=== PATIENT | male | born 1935 | race Caucasian/White ===

== ENCOUNTER 2020-04-29 09:31 | Outpatient (CLI) | payer MEDICARE, SELFPAY ==
--- NOTE | ~2020-04-29 | MR_ITS ---
EXAMINATION: MR cervical spine wo con DATE: 04/29/2020 10:46 INDICATION: Bilateral hand tremors. TECHNIQUE: Magnetic resonance imaging (MRI) of the cervical spine was performed without intravenous c ontrast. Sequences included sagittal T2-weighted FSE, sagittal T2-weighted FS FSE, sagittal T1-weight ed FSE, axial MERGE, and axial T2-weighted FSE. COMPARISON: Cervical spine MRI 05/26/2019 FINDINGS: There is 2 mm retrolisthesis of C7 on T1. There are changes of anterior fusion procedure fr om C4 to C7 with healed interbody bone graft. Vertebral body heights are normal. Intervertebral disc heights are normal in cervical spine. The spinal cord signal intensity is normal. The following disc levels are specifically discussed: C2-C3: There is a left central protrusion. There is no uncovertebral joint osteoarthritis. There is s evere right and mild left facet joint osteoarthritis. There is mild right neural foraminal stenosis. There is mild central canal stenosis. C3-C4: The disc is bulging. There is mild bilateral uncovertebral joint osteoarthritis. There is mode rate right and severe left facet joint osteoarthritis. There is mild right and moderate left neural f oraminal stenosis. There is mild central canal stenosis with ventral indentation of the spinal cord. C4-C5: There is mild left uncovertebral joint hypertrophy. There is mild left facet joint hypertrophy . There is mild left neural foraminal stenosis. There is mild central canal stenosis. C5-C6: There is mild bilateral uncovertebral joint hypertrophy. There is no facet joint osteoarthriti s. There is mild bilateral neural foraminal stenosis. There is mild central canal stenosis. C6-C7: There is moderate bilateral uncovertebral joint hypertrophy. There is no facet joint osteoarth ritis. There is mild bilateral neural foraminal stenosis. There is mild central canal stenosis. C7-T1: The disc does not extend beyond the endplate margin. There is no uncovertebral joint osteoarth ritis. There is severe bilateral facet joint osteoarthritis. There is moderate bilateral neural jayne inal stenosis. There is no central canal stenosis. IMPRESSION: 1. Moderate cervical spondylosis, stable from 05/26/2019. 2. Anterior fusion from C4 to C7. Reviewed, dictated and finalized at location A.
== END 2020-04-29 09:32 | disposition home or self-care (01) ==
PROVIDERS: PCP Internal Medicine; Visit Provider Psychiatry & Neurology Neurology
DX: R25.1 Tremor, unspecified (principal); M47.892 Other spondylosis, cervical region; Z98.1 Arthrodesis status
CPT/HCPCS: 72141

== ENCOUNTER 2020-05-03 13:16 | Outpatient (CLI) | payer MEDICARE, SELFPAY ==
--- NOTE | 2020-05-03 15:00 | NEURO_ITS ---
Patient Number: [id number] Impression: # Complains of generalized weakness of long duration. 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 # Severe neurogenic changes noted in muscles. # Clinical correlation recommended Nerve Conduction Studies Anti Sensory Summary Table Stim Site NR Peak (ms) P-T Amp (?V) Site1 Site2 Delta-P (ms) Dist (cm) Rajan (m/s) Left Median Anti Sensory (2-3nd Digit) Wrist 7.3 5.0 Wrist 2-3nd Digit 7.3 14.0 19 Wrist 7.1 10.6 Wrist 2-3nd Digit 7.3 14.0 19 Right Median Anti Sensory (2-3nd Digit) Wrist 8.0 11.3 Wrist 2-3nd Digit 8.0 14.0 18 Wrist 8.0 18.4 Wrist 2-3nd Digit 8.0 14.0 18 Left Radial Anti Sensory (Base 1st Digit) Wrist 2.6 20.0 Wrist Base 1st Digit 2.6 0.0 Right Radial Anti Sensory (Base 1st Digit) Wrist 3.7 14.8 Wrist Base 1st Digit 3.7 0.0 Left Sup Fibular Anti Sensory (Ant Lat Mall) NO RESPONSE 14 cm NR 14 cm Ant Lat Mall 16.0 Right Sup Fibular Anti Sensory (Ant Lat Mall) NO RESPONSE 14 cm NR 14 cm Ant Lat Mall 16.0 Left Sural Anti Sensory (Lat Mall) NO RESPONSE Calf NR Calf Lat Mall 16.0 Right Sural Anti Sensory (Lat Mall) NO RESPONSE Calf NR Calf Lat Mall 16.0 Left Ulnar Anti Sensory (5th Digit) Wrist 8.1 5.2 Wrist 5th Digit 8.1 14.0 17 Right Ulnar Anti Sensory (5th Digit) Wrist 6.8 4.7 Wrist 5th Digit 6.8 14.0 21 Motor Summary Table Stim Site NR Onset (ms) O-P Amp (mV) Site1 Site2 Delta-0 (ms) Dist (cm) Rajan (m/s) Left Median Motor (Abd Poll Brev) Wrist 10.8 0.8 Elbow Wrist 13.8 32.0 23 Elbow 24.6 0.8 Right Median Motor (Abd Poll Brev) Wrist 10.5 1.1 Elbow Wrist 13.1 29.0 22 Elbow 23.6 1.5 Left Peroneal Motor (Vastus Med) NO RESPONSE Ankle NR Popit NR Right Peroneal Motor (Vastus Med) NO RESPONSE Ankle NR Popit NR Left Tibial Motor (Abd Rivero Brev) NO RESPONSE Ankle NR Knee NR Right Tibial Motor (Abd Rivero Brev) NO RESPONSE Ankle NR Knee NR Left Ulnar Motor (Abd Dig Minimi) Wrist 6.2 1.1 A Elbow Wrist 14.7 32.0 22 A Elbow 20.9 2.0 Right Ulnar Motor (Abd Dig Minimi) Wrist 5.8 0.1 A Elbow Wrist 16.8 31.0 18 A Elbow 22.6 2.3 F Wave Studies NR F-Lat (ms) L-R F-Lat (ms) Left Median (Mrkrs) (Abd Poll Brev) 34.91 0.12 Right Median (Mrkrs) (Abd Poll Brev) 35.03 0.12 Left Peroneal (Mrkrs) (EDB) NO RESPONSE NR Right Peroneal (Mrkrs) (EDB) NO RESPONSE NR Left Tibial (Mrkrs) (Abd Hallucis) NO RESPONSE NR Right Tibial (Mrkrs) (Abd Hallucis) NO RESPONSE NR Left Ulnar (Mrkrs) (Abd Dig Min) 31.70 0.18 Right Ulnar (Mrkrs) (Abd Dig Min) 31.52 0.18 EMG Side Muscle Nerve Root Ins Act Fibs Amp Dur Recrt Comment Right 1stDorInt Ulnar C8-T1 Nml Nml Decr >12ms Reduced Right Ext Indicis Radial (Post Int) C7-8 Nml Nml Decr >12ms Reduced Right Ext Digitorum Radial (Post Int) C7-8 Nml Nml Decr >12ms Reduced Right BrachioRad Radial C5-6 Nml Nml Decr >12ms Reduced Right PronatorTeres Median C6-7 Nml Nml Decr >12ms Reduced Right A
== END 2020-05-03 13:17 | disposition home or self-care (01) ==
LOC: ANHNEURO 13:21
PROVIDERS: PCP Internal Medicine; Visit Provider Psychiatry & Neurology Neurology
DX: G62.9 Polyneuropathy, unspecified (principal); R94.131 Abnormal electromyogram [EMG]
CPT/HCPCS: 95886; 95913

== ENCOUNTER 2020-05-07 16:45 | Outpatient (CLI) | payer MEDICARE, SELFPAY ==
--- NOTE | ~2020-05-07 | CT_ITS ---
EXAMINATION: CT brain wo con INDICATION: Headache COMPARISON: None TECHNIQUE: Standard unenhanced head CT. The dose-length product (DLP) was 605.33 mGy-cm. The mA was a djusted according to patient size. Iterative reconstruction technique was employed. FINDINGS: There is no acute intraparenchymal hemorrhage. No evidence of mass lesion. No evidence of a cute infarction. There is mild periventricular and subcortical hypodensity probably related to small vessel ischemic disease. There is mild prominence of the sulci and ventricles related to cerebral atr ophy. Intracranial calcified cerebral atherosclerosis is noted. There are no extra-axial collections. There is no mass effect or midline shift. The orbits and soft tissues are unremarkable. The visuali zed sinuses and mastoid air cells are well aerated. IMPRESSION: 1. No acute intracranial abnormality. 2. Age related findings. Reviewed, dictated and finalized at location A.
--- NOTE | ~2020-05-07 | XR_ITS ---
EXAMINATION:XR cervical spine min 6V DATE: 05/07/2020 17:29 INDICATION: Neck pain TECHNIQUE: AP, lateral, lateral swimmers, bilateral oblique, and odontoid views of the cervical spine are provided. COMPARISON: None FINDINGS: Alignment is normal. The odontoid is intact. No fracture is identified. The vertebral body heights are normal. There are changes of anterior fusion from C4 through C7. The intervertebral disc space height at the nonfused levels are normal. There is moderate to severe multilevel facet osteoart hritis. Prevertebral soft tissues are normal. IMPRESSION: 1. Moderate cervical spondylosis without acute findings or significant interval change. Reviewed, dictated and finalized at location A.
== END 2020-05-07 16:46 | disposition home or self-care (01) ==
LOC: ANHIMG 16:50
PROVIDERS: PCP Internal Medicine; Visit Provider Internal Medicine
DX: R51 Headache (principal); M47.892 Other spondylosis, cervical region
CPT/HCPCS: 70450; 72052

== ENCOUNTER 2020-05-08 20:12 | Inpatient (IN) | payer MEDICARE, SELFPAY ==
--- NOTE | ~2020-05-08 | MR_ITS ---
EXAMINATION: MR brain/brain stem w con DATE: 05/10/2020 13:17 INDICATION: Right-sided extra-axial intracranial mass. TECHNIQUE: Magnetic resonance imaging (MRI) of the brain and brainstem was performed with 18 mL Multi David intravenous contrast. Sequences included axial T1-weighted FSE and postcontrast axial, coronal, and sagittal T1-weighted FSE. COMPARISON: Brain MRI 05/10/2020 FINDINGS: There is a 19 x 6 mm enhancing extra-axial mass overlying right frontal lobe. There is diff use pachymeningeal thickening and enhancement, likely secondary to prior lumbar spine surgery. There is no intracranial hemorrhage. The ventricles are normal in size. IMPRESSION: 1. 19 x 6 mm enhancing extra-axial mass overlying right frontal lobe, consistent with a meningioma. Reviewed, dictated and finalized at location A. IMPRESSION: 1. 19 x 6 mm enhancing extra-axial mass overlying right frontal lobe, consisten t with a meningioma.
--- NOTE | ~2020-05-08 | MR_ITS ---
EXAMINATION: MR brain/brain stem wo con DATE: 05/10/2020 09:11 INDICATION: Headache. Trauma. TECHNIQUE: Magnetic resonance imaging (MRI) of the brain and brainstem was performed without intraven ous contrast. Sequences included sagittal and axial T1-weighted FSE, axial diffusion-weighted FS EPI, axial T2*-weighted GRE, axial T2-weighted FLAIR Propeller, and axial T2-weighted Propeller. Apparent diffusion coefficient (ADC) maps were created. COMPARISON: Head CT 05/09/2020 FINDINGS: There is a 19 x 6 mm extra-axial mass overlying right frontal lobe that is intermediate sig nal intensity on T1 and T2-weighted images and demonstrates decreased signal on T2*weighted images. T here is no acute ischemic infarct. The ventricles are normal in size. There is mild mucosal thickenin g in the ethmoid sinuses. There is a mucous retention cyst in right maxillary sinus. There are likely changes of ocular lens replacement surgeries. There is anteroposterior elongation of the ocular glob es. The mastoid air cells are normal. IMPRESSION: 1. Stable 19 x 6 mm extra-axial mass overlying right frontal lobe, which may be a meningioma or acute subdural hematoma. Brain MRI with intravenous contrast is recommended. Reviewed, dictated and finalized at location A. IMPRESSION: 1. Stable 19 x 6 mm extra-axial mass overlying right frontal lobe, which may be a meningioma or acute subdural hematoma. Brain MRI with intravenous contrast i s recommended.
--- NOTE | ~2020-05-08 | CT_ITS ---
EXAMINATION: CTA brain carotid EXAM DATE: 05/09/2020 16:41 INDICATION: Intractable headaches. TECHNIQUE: Noncontrast head CT. Spiral CTA of the carotid arteries was performed with intravenous i njection 100 cc of Omnipaque 350. Axial, coronal, sagittal reformatted images reviewed. Additional r eformatted images created on dedicated 3-D workstation. NASCET comparable standard used to assess th e degree of arterial stenosis. Spiral CT angiogram cerebral arteries performed with the same intrave nous injection of contrast. Source images of the brain CTA transferred to dedicated workstation for 3 -D rotational image creation. Coronal, sagittal maximum intensity pixel images also reviewed. The d ose-length product (DLP) for this examination was 1736.83 mGy-cm. The exposure was tailored accordi ng to patient size, and iterative reconstruction (ASIR) was used as additional dose reduction techniq ue. Comparison is made to prior examination from 05/07/2020. FINDINGS: There is no carotid bulb plaque or stenosis. The vertebral arteries are codominant. Mild bi lateral carotid siphon arterial sclerosis without stenosis. There is no carotid or vertebral basilar arterial dissection or fibromuscular dysplasia. There are no cerebral artery aneurysms. There is symm etric cerebral artery arborization. The sagittal, transverse and sigmoid sinuses enhance normally, no venous sinus thrombosis. Internal cerebral veins also enhance normally. There is small hyperdense extra-axial bilobulated region measuring 4 mm thickness by 1.5 cm diameter, overlying the right frontal lobe measuring 70-80 Hounsfield units precontrast, 107 Hounsfield units postcontrast. This is most likely a small meningioma given enhancement on this early arterial phase. This is unchanged compared to 05/07/2020. No evidence of intraparenchymal brain mass lesion. No evide nce of acute infarction. There is no mass effect or midline shift. There is no obstructive hydrocepha jamal suspected. There are no calvarial acute fractures. Bilateral cataract surgery. Osseous fusion of the C4-7 vertebral bodies. Lung apices unremarkable. IMPRESSION: 1. No cervical arterial dissection or cerebral artery aneurysm. No carotid stenosis. 2. Right frontal small bilobulated extra-axial region most likely meningioma given enhancement. Con jacquard loom fixer 3-six-month follow-up noncontrast head CT. Reviewed, dictated and finalized at location A. IMPRESSION: 1. No cervical arterial dissection or cerebral artery aneurysm. No carotid ryan nosis. 2. Right frontal small bilobulated extra-axial region most likely meningioma g iven enhancement. Consider 3-six-month follow-up noncontrast head CT.
--- NOTE | ~2020-05-08 | XR_ITS ---
EXAMINATION: XR chest 2V DATE: 05/08/2020 21:55 INDICATION: Weakness and dizziness TECHNIQUE: AP and lateral views of the chest are obtained. COMPARISON: 04/19/2017 FINDINGS: The lungs are free of acute opacities. There is no pleural effusion or pneumothorax. The ca rdiomediastinal silhouette is normal. There is mild thoracic spondylosis. IMPRESSION: 1. No acute cardiopulmonary abnormality. Reviewed, dictated and finalized at location A.
[2020-05-08 20:15] VITALS: BP 155/62; PULSE 58; RESP 16; TEMP 36.3; O2SAT 100
--- NOTE | 2020-05-08 20:18 | ECG_ITS ---
Measurements Intervals [place] Rate: 56 P: 8 PA: 180 QRS: 10 QRSD: 98 T: 116 QT: 409 QTc: 397 Interpretive Statements SINUS BRADYCARDIA LOW QRS VOLTAGE IN PRECORDIAL LEADS CANNOT RULE OUT SEPTAL INFARCT, AGE INDETERMINATE BORDERLINE ST-T WAVE ABNORMALITY- HIGH LATERAL LEADS BASELINE ARTIFACT- I, III, AVR, AVL ABNORMAL ECG Electronically Signed On 05-09-2020 7:35:21 CDT by Juancarlos Marx D.O.
[2020-05-08 20:29] LABS: Basophils Percent Auto 0.3 % (0.2-1.2); Eosinophils Absolute Auto 0.2 K/mm3 (0-0.3); Eosinophils Percent Auto 2.9 % (0-4.4); Hematocrit 37.1 % (42.0-52.0); Hemoglobin 13.5 g/dL (14.0-18.0); Immature Granulocyte Absolute 0.02 K/mm3 (0.00-0.031); Immature Granulocyte Percent A 0.3 % (0-0.5); Lymphocytes Absolute Auto 2.02 K/mm3 (0.9-3.2); Lymphocytes Percent Auto 34.8 % (18.3-44.2); Mean Corpuscular HGB Conc 36.4 g/dl (32-36); Mean Corpuscular Hemoglobin 34.2 pg (26-34); Mean Corpuscular Volume 93.9 fl (80-100); Mean Platelet Volume 8.7 fl (7.4-10.4); Monocytes Absolute Auto 0.7 K/mm3 (0.1-0.6); Monocytes Percent Auto 11.2 % (2.6-8.5); Neutrophils Absolute Auto 2.9 K/mm3 (1.3-6.7); Neutrophils Percent Auto 50.5 % (45.5-73.1); Platelet Count Result 209 k/mm3 (150-375); Red Blood Count 3.95 M/mm3 (4.6-6.20); Red Cell Distribution Width 13.2 % (11.5-14.5); White Blood Count 5.8 K/mm3 (4.5-10.0)
[2020-05-08 20:41] LABS: Prothrombin Time 30.7 Seconds (11.1-14.7)
[2020-05-08 20:42] LABS: Partial Thromboplastin Time 47.2 SECONDS (22.3-36.8)
[2020-05-08 20:45] LABS: Alanine Aminotransferase 39 U/L (4-50); Alkaline Phosphatase 72 U/L (38-126); Aspartate Amino Transferase 55 U/L (17-59); Bilirubin,Total 0.3 mg/dL (0.2-1.3); Blood Urea Nitrogen 15 mg/dL (9-20); Calcium 8.1 mg/dL (8.4-10.2); Carbon Dioxide 30 mmol/L (22-30); Chloride 81 mmol/L (98-107); Estimated Glomerular Filt Rate > 60; Glucose 93 mg/dL (75-110); Potassium 3.8 mmol/L (3.4-5.0); Sodium 120 mmol/L (137-145)
--- NOTE | 2020-05-08 22:08 | ED.GENADULT ---
HPI - General Adult General Chief complaint: Weakness Stated complaint: weakness Time Seen by Provider: 05/08/20 21:31 History of Present Illness HPI narrative: Patient is a 85 y/o male complaining of generalized headache starting 2-3 days ago. He feels like his headache is both pressure and aching and he rates it as 3/10. He took Tylenol which did not help. He also has chronic neck pain. He denies any fever, nausea,vomiting or focal weakness. He has some generalized weakness for several weeks. He had outpatient head CT yesterday for evaluation of his headache. He was told that CT was negative. Related Data Home Medications Medication Instructions Recorded Confirmed primidone 250 mg tablet 250 mg PO QID tablet 02/02/20 05/07/20 latanoprost 0.005 % eye drops 1 drop OPHTHALMIC (EYE) DAILY ml 03/28/20 05/07/20 Allergies Allergy/AdvReac Type Severity Reaction Status Date / Time naproxen Allergy Severe SWELLING/SO Verified 05/07/20 14:03 B Review of Systems Constitutional: Constitutional: Denies chills, Denies fever(s), Reports headache(s) and Reports weakness Eyes: Eyes: Denies blurry vision ENT: Denies headache(s) and Denies neck pain Cardiovascular: Cardiovascular: Denies chest pain and Denies dyspnea Respiratory: Respiratory: Denies cough and Denies dyspnea Gastrointestinal: Gastrointestinal: Denies abdominal pain, Denies diarrhea, Denies nausea and Denies vomiting Genitourinary: Genitourinary: Denies hematuria and Denies dysuria Musculoskeletal: Musculoskeletal: Denies back pain and Reports neck pain Neurologic: Reports headache(s), Reports weakness and Reports other [facility]tremor) [facility] Past Medical History Medical History Eye exam normal Neck pain, acute Parkinson's disease dementia Routine eye exam Unspecified fall, initial encounter Family History Family History Other Asthma Cerebrovascular accident Diabetes mellitus Family history of arthritis Hypertension Social History Social History Second hand tobacco smoke exposure: No Alcohol intake: never Gender identity (if verbalized by the patient): Male Exam Const: General: no acute distress and well developed Orientation/consciousness: oriented to person, oriented to place, oriented to time and patient oriented x3 HENMT: Head: normocephalic Ears: external ears normal General nose exam: Normal external nose present Eyes: General: appearance normal, both eyes and all related structures Conjunctivae: conjunctivae normal Neck: Neck: normal visual inspection and full ROM Chest: Chest palpation & inspection: normal inspection of the chest and no tenderness Resp: Effort & Inspection: normal respiratory effort Auscultation: clear to auscultation bilaterally Cardio: Rate: regular rate Rhythm: regular rhythm GI: GI Palp: No abdominal tenderness and Yes Soft to palpation Skin: General skin exam: normal color and turgor normal Neuro: General: oriented to person, oriented to place, oriented to time and patient oriented x3 Cranial nerves: Yes CN's II-XII intact bilaterally Cognition (Neuro): normal cognition Speech: normal speech Motor exam (neuro): 5/5 motor strength present throughout Sensory Exam: normal sensation Coordination: [id number] test normal and [id number] test normal Extrem: General: normal to inspection, full ROM and no pedal edema Psych: Appearance: grossly normal Mental Status: mental status grossly normal Affect: normal affect Course Consultations Consultation #1: Discussed with Dr. Corado, who agrees to admit. Date: 05/08/20 Time: 22:50 Consultation #2: Discussed with Dr. Patino, who agrees to consult. Date: 05/08/20 Time: 23:16 Vital Signs Vital signs: Vital Signs Temperature 36.3 C L 05/08/20 20:15 Pulse Rate 58 L 05/08/20 20:15 Res
[2020-05-08 22:15] VITALS: BP 142/65; PULSE 55; RESP 12; O2SAT 99
[2020-05-08 22:20] VITALS: PULSE 55
[2020-05-08] MEDS: SODIUM CHLORIDE 0.9% IV 1,000 ML 100 ML IV CONT (22:33)
[2020-05-08 22:57] LABS: Add Urine Microscopic? YES; Appearance Urine Clear (Clear); Bilirubin Urine Negative (Negative); Blood Urine 2+ (Negative); Color Urine Straw (Yellow); Glucose Urine UA Negative (Negative); Ketones Urine Negative (Negative); Leukocyte Esterase Ur Negative LEU/UL (Negative); Nitrate Urine Negative (Negative); Protein Urine Negative (Negative); Specific Grav Ur 1.012 (1.001-1.035); Urobilinogen Urine Negative mg/dL (<2.0); WBC Urine 0-3 /hpf
[2020-05-08 23:17] LABS: Sodium Urine Random 66 meq/L
[2020-05-09] VITALS (8 sets, daily range): BP systolic 123–154; BP diastolic 53–71; PULSE 57–72; RESP 13–18; TEMP 36.5–36.9; O2SAT 97–100; BMI 29.9
--- NOTE | 2020-05-09 00:41 | ADMGEN ---
This patient, Truong Higuera, was admitted to [facility] Surg Room 306-02. Patient/family oriented to hospital policies and general routines including ID bracelet, bed and alarms, visiting hours, pain management, procedures, bathroom and other care routines, personal items, smoking policy, room service/diet, and visiting hours. Valuables list has been completed. Information on how to activate the Rapid Response Team has been discussed. Patient/Family are encouraged to report perceived risks to care and to ask questions if they do not understand what they are told or what they should do.
[2020-05-09 06:29] LABS: Basophils Percent Auto 0.4 % (0.2-1.2); Eosinophils Absolute Auto 0.2 K/mm3 (0-0.3); Eosinophils Percent Auto 3.5 % (0-4.4); Hematocrit 41.6 % (42.0-52.0); Hemoglobin 14.9 g/dL (14.0-18.0); Immature Granulocyte Absolute 0.01 K/mm3 (0.00-0.031); Immature Granulocyte Percent A 0.2 % (0-0.5); Lymphocytes Absolute Auto 1.42 K/mm3 (0.9-3.2); Mean Corpuscular HGB Conc 35.8 g/dl (32-36); Mean Corpuscular Hemoglobin 33.6 pg (26-34); Mean Corpuscular Volume 93.7 fl (80-100); Mean Platelet Volume 8.5 fl (7.4-10.4); Monocytes Absolute Auto 0.4 K/mm3 (0.1-0.6); Monocytes Percent Auto 9.6 % (2.6-8.5); Neutrophils Absolute Auto 2.5 K/mm3 (1.3-6.7); Neutrophils Percent Auto 55.3 % (45.5-73.1); Platelet Count Result 215 k/mm3 (150-375); Red Blood Count 4.44 M/mm3 (4.6-6.20); Red Cell Distribution Width 13.2 % (11.5-14.5); White Blood Count 4.6 K/mm3 (4.5-10.0)
[2020-05-09 06:36] LABS: Blood Urea Nitrogen 11 mg/dL (9-20); Calcium 8.3 mg/dL (8.4-10.2); Carbon Dioxide 28 mmol/L (22-30); Chloride 85 mmol/L (98-107); Estimated CRCL calculation 63 ml/min; Estimated Glomerular Filt Rate > 60; Glucose 113 mg/dL (75-110); Potassium 3.6 mmol/L (3.4-5.0); Sodium 121 mmol/L (137-145)
[2020-05-09] MEDS: TELMISARTAN 40 MG TABLET PO (08:34)
[2020-05-09] MEDS: AMIODARONE HCL 200 MG TABLET PO (08:34)
[2020-05-09] MEDS: metFORMIN HCL 500 MG TABLET 1000 MG PO (08:34)
[2020-05-09] MEDS: polyethylene glycoL 3350 17 GM POWD.PACK PO (08:34)
[2020-05-09] MEDS: PRIMIDONE 250 MG TABLET PO ×3 (08:34→16:43)
[2020-05-09] MEDS: LORATADINE 10 MG TABLET PO (08:34)
[2020-05-09] MEDS: SODIUM CHLORIDE 0.9% IV 1,000 ML 125 ML IV CONT (08:38)
[2020-05-09 10:45] LABS: Sodium 121 mmol/L (137-145)
[2020-05-09 13:05] LABS: Creatinine Urine 29.2 mg/dL
--- NOTE | 2020-05-09 14:25 | PM.IMHP ---
H&P: HPI History of Present Illness Chief complaint: hyponatremia Narrative: Truong Higuera is a 85 year old male Who presented emergency room for a new 4/10 headache that started Thursday. Patient states that he has got normal headaches right his life but has noticed that he has had the same headache since Thursday. He rates this headache a 4/10 but went down to 1/10 with the Fioricet. He says it feels like a dull constant headache that is around his frontal head and the back of his head. He took Tylenol at home but it did not help. He cannot take ibuprofen because he is on warfarin. He said this is causing him not to sleep and actually woke him up out of a sleep because of the pain. He has no associated vision change, new tremor, numbness, tingling, slurred speech, neck pain, or problems swallowing. He has noticed in the last 5 days that he has been more off balance which is abnormal for him. He thought this was the medicine gabapentin that he started on recently but he quit taking this medication and his symptoms have not gotten better. He fell a few weeks ago but fell back on his butt and did not hit his head. the patient states that he recently started drinking more water because his daughter says he does not drink enough water. He now drinks up to 10 glasses of water a day and has been urinating a lot. He denies chest pain, fevers, chills, shortness of breath, rashes or sick contacts. He has an essential tremor that has not changed since he was 27. He has no history of dementia or Parkinson's. Review of Systems Review of Systems: All systems reviewed & are unremarkable except as noted in HPI and below [facility] Past Medical History Medical History (Updated 05/09/20 @ 15:17 by Carolyn Okeefe PA-C) Cataract Cervical vertebral fusion Chronic atrial fibrillation Chronic diastolic (congestive) heart failure Essential tremor Eye exam normal Glaucoma Hearing loss Mixed hyperlipidemia Neck pain, acute Routine eye exam Type 2 diabetes mellitus without complication, without long-term current use of insulin Unspecified fall, initial encounter Family History Family History Other Asthma Cerebrovascular accident Diabetes mellitus Family history of arthritis Hypertension Social History Social History (Updated 05/09/20 @ 15:18 by Carolyn Okeefe PA-C) Social History: patient is a nonsmoker and never has smoked. He does not use alcohol or drugs. 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 His power of agriculture consultant is Jia Leon, daughter. He would like to be a full code Smoking status: Current every day smoker Tobacco type: smokeless tobacco Smokeless tobacco user: chewing tobacco Alcohol intake: never Substance use: never Gender identity (if verbalized by the patient): Male Spiritual care concerns: Yes (jain) Meds Home Medications and Allergies Home Medications Medication Instructions Recorded Confirmed Type metformin 1,000 mg tablet 1,000 mg PO DAILY #90 tablet 12/13/19 05/09/20 Rx primidone 250 mg tablet 250 mg PO QID tablet 02/02/20 05/09/20 History telmisartan 40 mg tablet 40 mg PO DAILY #90 tablet 03/27/20 05/09/20 Rx latanoprost 0.005 % eye drops 1 drop OPHTHALMIC (EYE) HS 03/28/20 05/09/20 History hydrochlorothiazide 50 mg tablet 50 mg PO DAILY 30 Days #30 tablet 04/24/20 05/09/20 Rx B-complex with vitamin C 1 tablet PO HS 05/09/20 05/09/20 History amiodarone 200 mg PO DAILY 05/09/20 05/09/20 History ascorbic acid (vitamin C) 1 g PO HS 05/09/20 05/09/20 History atorvastatin 10 mg PO EVERY OTHER DAY 05/09/20 05/09/20 History cholecalciferol (vitamin D3) 25 mcg PO HS 05/09/20 05/09/20 History fexofenadine [Allergy Relief 180 mg PO DAILY 05/09/20 05/09/20 History (fexofenadine)] montelukast 10 mg PO HS 05/09/20 05/09/20 History polyethylene glycol 3350 [Miralax] 17 g PO EVERY OTHER DAY 05/09/20 05/09/20 History warfarin See Rx Instruc
[2020-05-09 16:12] LABS: Urea Random Urine 256 MG/DL
[2020-05-09 17:50] LABS: Glucose Point of Care 117 (65-105)
--- NOTE | 2020-05-09 20:40 | CONS_ITS ---
DATE OF CONSULTATION: 05/09/2020 Patient of Carolyn Okeefe. HISTORY OF PRESENT ILLNESS: This 85 years old right-handed male has been admitted to [facility] through the emergency room for the complaint of change in the mental status with the initial evaluation revealing the patient was hyponatremic when he was investigated in the emergency room. As per the information available, the patient had been experiencing severe headaches since Thursday, 01/26, but went down to 10/28 with the pain medication. The headache was described as constant, located in frontal and occipital area with no relief from the Tylenol. He was unable to take ibuprofen because the patient has been on warfarin. He had no associated visual changes, weakness, numbness, or slurred speech, but he has been off the balance for 5 days. He attributed that symptom to the gabapentin and he quit taking that medication. He has fallen a few weeks ago, though he did not hit his head at that particular time. He was having difficulties drinking water, but recently he has been drinking 10 glasses of water a day and he has been urinating a lot. PAST MEDICAL HISTORY: The patient does have ongoing history of essential tremor. In the past, he had been documented to have cervical vertebral fusion, chronic atrial fibrillation, diastolic congestive heart failure, essential tremor, hearing loss, glaucoma, and type 2 diabetes mellitus. SOCIAL HISTORY: He is a current every day smoker, chews tobacco, never drinker. MEDICATIONS: Included metformin 1000 mg daily, primidone 250 mg q.i.d., amiodarone 200 mg daily, ascorbic acid 1 g at bedtime, atorvastatin 10 mg every other day, Coumadin accordingly. ALLERGIES: HE IS ALLERGIC TO ONLY NAPROXEN. PHYSICAL EXAMINATION: VITAL SIGNS: Initial evaluation revealed him to be afebrile with pulse of 58, respirations 16, blood pressure 155/62. GENERAL: Examination revealed him to be awake, alert, cooperative, in no obvious acute distress. HEENT: Head normocephalic with no cranial bruit. Ears, nose, throat examination normal. NECK: Supple with no cervical bruit. No thyromegaly. No lymphadenopathy. HEART: Regular. LUNGS: Clear. ABDOMEN: Soft. NEUROLOGIC: Motor examination revealed him to have decreased strength in upper and lower extremities with sluggish reflexes, downgoing plantar responses. LABORATORY DATA: Evaluation up until now documented him to have normal CBC with WBC 5.8, hemoglobin 13.5, platelet count 209. Basic metabolic panel with sodium only 120, potassium 3.8, chloride 81, CO2 of 30, BUN 15, creatinine 1, glucose 93, calcium 8.1. Total bilirubin 0.3, AST 55, ALT 39, alkaline phos 72, albumin 4. UA negative with specific gravity 1.012. IMAGING DATA: Evaluation up until now included the head and neck CTA, which is with no cervical arterial dissection or aneurysm, right frontal small bilobulated extra-axial region most likely meningioma given the enhancement for which a repeat CT scan recommended as a followup. Cervical spine x-rays are compatible with moderate cervical spondylosis. 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 IMPRESSION: 1. Hyponatremia. 2. Severe neuropathy. 3. Underlying basic weakness because of neuropathy exacerbated by the hyponatremia for which he is being treated accordingly. At present, he is receiving the IV fluids, all his other medications as such, will need slow hydration and correction of hyponatremia. As far as weakness is concerned, that has been documented secondary to severe neuropathy and things have been
[2020-05-09] MEDS: CHOLECALCIFEROL 1,000 UNIT TABLET 1000 UNITS PO (21:00)
[2020-05-09] MEDS: ATORVASTATIN 10 MG TABLET PO (21:05)
[2020-05-09] MEDS: ASCORBIC ACID 500 MG TABLET 1000 MG PO (21:05)
[2020-05-09] MEDS: VITAMIN B COMPLEX/VIT C CAPSULE 1 EACH PO (21:06)
[2020-05-09] MEDS: LATANOPROST 0.005% OP SOLN 2.5 ML BTL 1 DROP EACH EYE (21:06)
[2020-05-09 21:16] LABS: Glucose Point of Care 125 (65-105)
[2020-05-09] MEDS: MONTELUKAST SODIUM 10 MG TABLET PO (22:28)
[2020-05-10 06:00] VITALS: BP 149/65; PULSE 66; RESP 16; TEMP 36.6; O2SAT 99
[2020-05-10 06:08] LABS: Hemoglobin 13.1 g/dL (14.0-18.0); Mean Corpuscular HGB Conc 35.4 g/dl (32-36); Mean Corpuscular Hemoglobin 33.7 pg (26-34); Mean Corpuscular Volume 95.1 fl (80-100); Mean Platelet Volume 8.7 fl (7.4-10.4); Platelet Count Result 209 k/mm3 (150-375); Red Blood Count 3.89 M/mm3 (4.6-6.20); Red Cell Distribution Width 13.4 % (11.5-14.5); White Blood Count 4.8 K/mm3 (4.5-10.0)
[2020-05-10 06:18] LABS: INR 2.4; Prothrombin Time 25.9 Seconds (11.1-14.7)
[2020-05-10 06:24] LABS: Anion Gap 9.7 mmol/L (7-16); Blood Urea Nitrogen 13 mg/dL (9-20); Carbon Dioxide 28 mmol/L (22-30); Chloride 92 mmol/L (98-107); Estimated CRCL calculation 63 ml/min; Estimated Glomerular Filt Rate > 60; Glucose 100 mg/dL (75-110); Magnesium 1.9 mg/dL (1.6-2.3); Phosphorus 2.6 mg/dL (2.5-4.5); Potassium 3.7 mmol/L (3.4-5.0); Sodium 126 mmol/L (137-145)
[2020-05-10 08:00] VITALS: PULSE 66; RESP 16; O2SAT 99
[2020-05-10] MEDS: metFORMIN HCL 500 MG TABLET 1000 MG PO (09:31)
[2020-05-10] MEDS: PRIMIDONE 250 MG TABLET PO ×2 (09:32→16:30)
[2020-05-10] MEDS: AMIODARONE HCL 200 MG TABLET PO (09:33)
[2020-05-10] MEDS: TELMISARTAN 40 MG TABLET PO (09:38)
[2020-05-10] MEDS: LORATADINE 10 MG TABLET PO (09:40)
--- NOTE | 2020-05-10 11:27 | WPDNEUROPN ---
Review of Systems Review of Systems: All systems reviewed & are unremarkable except as noted in HPI and below Exam Const: General: cooperative, comfortable, no acute distress, well developed, alert and awake Orientation/consciousness: oriented to person, oriented to place and oriented to time Limitations: no limitations HENMT: Head: normal to inspection Eyes: General: appearance normal, both eyes and all related structures Visual Collins: normal visual collins by confrontation Alignment and Position: alignment normal Periorbital: periorbital findings normal Eyelids: eyelids normal Conjunctivae: conjunctivae normal Sclera: sclerae normal Cornea: corneas normal Pupils: Equal, round and reactive pupils present and Pupils normal by confrontation EOM: EOMs intact bilaterally Direct Ophthalmoscopy: no photophobia Neck: Neck: normal visual inspection and full ROM Resp: Effort & Inspection: normal respiratory effort and able to speak in complete sentences Auscultation: clear to auscultation bilaterally Cardio: Rate: regular rate GI: Auscultation: normal bowel sounds Skin: General skin exam: no rashes or lesions noted Neuro: General: patient oriented x3 Cranial nerves: Yes CN's II-XII intact bilaterally Speech: normal speech Motor exam (neuro): Abnormal motor strength present Sensory Exam: Sensory deficit (Neuro) Deep tendon reflexes (DTR's): Right triceps reflex intensity grade: 1+, Left triceps reflex intensity grade: 1+, Rt Biceps (C5, C6): 1+, Left biceps reflex intensity grade: 1+, Right brachioradialis reflex intensity grade: 1+, Left brachioradialis reflex intensity grade: 1+, Right patellar reflex intensity grade: 0, Left patellar reflex intensity grade: 0, Right ankle reflex intensity grade: 0 and Left ankle reflex intensity grade: 0 Plantar Reflex Responses: downgoing: bilateral Coordination: [id number] test normal Extrem: General: normal to inspection Psych: Appearance: grossly normal Speech and movement: Normal speech and movement present Affect: normal affect Attitude: cooperative Thought process: Normal thought process present Insight: Good insight present (Psych) Judgement: Good judgement present (Psych) Objective Data Vital Signs Vital Signs: Vital Signs - 24 hr 05/09/20 14:00 05/09/20 20:00 05/09/20 21:51 Temperature 36.5 C 36.9 C Pulse Rate 67 67 60 Respiratory Rate 18 18 18 Blood Pressure 137/53 L 138/71 Pulse Oximetry 99 99 97 05/10/20 06:00 05/10/20 08:00 Temperature 36.6 C Pulse Rate 66 66 Respiratory Rate 16 16 Blood Pressure 149/65 H Pulse Oximetry 99 99 Intake/Output Intake/Output: Intake & Output 05/07/20 05/08/20 05/09/20 05/10/20 23:59 23:59 23:59 23:59 Intake Total 927 240 Output Total 2550 700 Balance -0643 460 Meds/Results Medications: Active Medications Generic Name Dose Route Start Last Admin Trade Name Freq PRN Reason Stop Dose Admin Acetaminophen 650 mg 05/09/20 13:35 Tylenol Tablet PO Q4H PRN Headache Amiodarone HCl 200 mg 05/09/20 08:00 05/10/20 09:33 Pacerone PO 200 mg DAILY@0800 VIVIANE Administration Ascorbic Acid 1,000 mg 05/09/20 21:00 05/09/20 21:05 Vitamin C PO 1,000 mg HS VIVIANE Administration Atorvastatin Calcium 10 mg 05/09/20 21:00 05/09/20 21:05 Lipitor PO 10 mg Q48H VIVIANE Administration Butalbital/Aspirin/Caffeine 1 cap 05/09/20 15:07 05/10/20 00:50 Fioricet Capsule PO 1 cap Q4H PRN Administration headache Dextrose 12.5 gm 05/09/20 15:29 Dextrose 50% Syringe IV PUSH PRN PRN Hypoglycemia Protocol Glucagon 1 mg 05/09/20 15:29 Glucagon For Inj IM PRN PRN Hypoglycemia Protocol Glucose 15 gm 05/09/20 15:29 Glutose 15 PO PRN PRN Hypoglycemia Protocol Dextrose 1,000 mls @ 100 mls/hr 05/09/20 15:29 Dextrose 5% 1,000 Ml IVPB PRN PRN Hypoglycemia Protocol Insulin Aspart 2 - 5 u
--- NOTE | 2020-05-10 13:31 | PM.IMPN ---
Progress Note: A&P Assessment and Plan (1) Headache: Qualifiers: Headache chronicity pattern: unspecified pattern Headache type: unspecified Intractability: not intractable Qualified Code(s): R51 - Headache Code(s): R51 - Headache Status: Acute Assessment and Plan: ----- Pt's HER is better with Fioricet. brain MRI with contrast shows meningioma but no bleed. I think this is an incidental finding. His headache is likely due to his hyponatremia and now he is not sleeping. It does get better with Fioricet and he does not have any neurological deficits at this time. CTA normal. Patient is on warfarin and INR is 2.4. Neurology has been consulted. (2) Hyponatremia: Code(s): E87.1 - Hypo-osmolality and hyponatremia Status: Acute Assessment and Plan: ----- on admission sodium was 120 and has improved to 126. the EMR shows his sodium at 133 September 2019. Unclear why he is hyponatremic at this time but could be due to him drinking a lot more water recently as his daughter has been encouraging him. diuretic held and will likely not be restarted. (3) Chronic atrial fibrillation: Code(s): I48.20 - Chronic atrial fibrillation, unspecified Status: Acute Assessment and Plan: ----- patient has chronic atrial fibrillation is on amiodarone and warfarin. INR 2.4. Will continue with this and monitor INRs daily (4) Essential tremor: Code(s): G25.0 - Essential tremor Status: Inactive Assessment and Plan: ----- chronic. Will continue primidone but a lower dose. Will ask neurology to review home dosing and appreciate their recommendations (5) Type 2 diabetes mellitus without complication, without long-term current use of insulin: Code(s): E11.9 - Type 2 diabetes mellitus without complications Status: Acute Assessment and Plan: ----- relatively well controlled. Will do sliding scale insulin and hold metformin. (6) Weakness: Code(s): R53.1 - Weakness Status: Acute Assessment and Plan: ----- Continue PT and OT. (7) Glaucoma: Code(s): H40.9 - Unspecified glaucoma Status: Acute Assessment and Plan: ----- no acute problems. Continue home eye drops. Time Spent With Patient Time with patient: 25 - 35 minutes Subjective Date/time seen: 05/10/20 13:31 Interval history: Pt is a 85-year-old male here for headache and hyponatremia. Patient was seen today and states he had a significant headache over night which woke him up. He took the Fioricet which improved his headache. he is doing better today and has no complaints. Daughter at bedside and I spoke with them about the plan in place. Pt denies CP, SOB, fevers, chills, nausea, vomiting, diarrhea, or constipation. of note, since this has started he has been getting confused on reality vs dreaming but has not been sleeping d/t pain. Review of Systems Review of Systems: All systems reviewed & are unremarkable except as noted in HPI and below Exam Narrative: Exam Narrative: General:Well developed well nourished patient HEENT: Normocephalic, atraumatic, PERRL, Sclerae anicteric, oral mucosa moist. Neck: Supple Resp: CTA Heart: RRR with no murmurs Abd: Soft, nontender. No pain to palpation. Positive bowel sounds Skin: Warm and dry Extremities: No swelling, erythema or pain to palpation Neuro: Alert and Oriented x4 . CN 2-12 intact. equal strength 5/5 upper and lower extremities. Able to do rapid alternating movements. Decreased accuracy to [id number] consistent with essential tremor Objective Data Vital Signs Vital Signs: Vital Signs - 24 hr 05/09/20 14:00 05/09/20 20:00 05/09/20 21:51 Temperature 97.7 F 98.4 F Pulse Rate 67 67 60 Respiratory Rate 18 18 18 Blood Pressure 137/53 L 138/71 Pulse Oximetry 99 99 97 05/10/20 06:00 05/10/20 08:00 Temperature 97.9 F Pulse Rate 66 66 Respi
[2020-05-10 14:00] VITALS: BP 134/58; PULSE 62; RESP 18; TEMP 36.7; O2SAT 100
[2020-05-10 18:06] LABS: Glucose Point of Care 116 (65-105)
[2020-05-10] MEDS: LATANOPROST 0.005% OP SOLN 2.5 ML BTL 1 DROP EACH EYE (20:41)
[2020-05-10] MEDS: MONTELUKAST SODIUM 10 MG TABLET PO (20:41)
[2020-05-10] MEDS: CHOLECALCIFEROL 1,000 UNIT TABLET 1000 UNITS PO (20:41)
[2020-05-10] MEDS: VITAMIN B COMPLEX/VIT C CAPSULE 1 EACH PO (20:41)
[2020-05-10] MEDS: ASCORBIC ACID 500 MG TABLET 1000 MG PO (20:41)
[2020-05-10 21:39] LABS: Glucose Point of Care 111 (65-105)
[2020-05-10 22:00] VITALS: BP 133/68; PULSE 58; RESP 18; TEMP 37.2; O2SAT 99
[2020-05-11 06:00] VITALS: BP 141/57; PULSE 53; RESP 18; TEMP 36.7; O2SAT 100
[2020-05-11 06:28] LABS: Hematocrit 36.7 % (42.0-52.0); Hemoglobin 12.8 g/dL (14.0-18.0); Mean Corpuscular HGB Conc 34.9 g/dl (32-36); Mean Corpuscular Volume 94.6 fl (80-100); Mean Platelet Volume 8.5 fl (7.4-10.4); Platelet Count Result 222 k/mm3 (150-375); Red Blood Count 3.88 M/mm3 (4.6-6.20); Red Cell Distribution Width 13.2 % (11.5-14.5); White Blood Count 5.2 K/mm3 (4.5-10.0)
[2020-05-11 06:32] LABS: INR 1.5
[2020-05-11 06:37] LABS: Anion Gap 9.7 mmol/L (7-16); Blood Urea Nitrogen 14 mg/dL (9-20); Calcium 8.1 mg/dL (8.4-10.2); Carbon Dioxide 28 mmol/L (22-30); Chloride 94 mmol/L (98-107); Estimated CRCL calculation 56 ml/min; Estimated Glomerular Filt Rate > 60; Glucose 104 mg/dL (75-110); Potassium 3.7 mmol/L (3.4-5.0); Sodium 128 mmol/L (137-145)
[2020-05-11 07:53] VITALS: PULSE 53; RESP 18; O2SAT 100
[2020-05-11] MEDS: PRIMIDONE 250 MG TABLET PO ×2 (08:11→13:39)
[2020-05-11] MEDS: metFORMIN HCL 500 MG TABLET 1000 MG PO (08:11)
[2020-05-11] MEDS: LORATADINE 10 MG TABLET PO (08:11)
[2020-05-11] MEDS: TELMISARTAN 40 MG TABLET PO (08:12)
[2020-05-11] MEDS: AMIODARONE HCL 200 MG TABLET PO (08:12)
[2020-05-11] MEDS: polyethylene glycoL 3350 17 GM POWD.PACK PO (08:13)
[2020-05-11 10:57] LABS: Glucose Point of Care 150 (65-105)
[2020-05-11] MEDS: ENOXAPARIN 100 MG/ML SYRINGE 95 MG SUB-Q (13:30)
[2020-05-11 14:00] VITALS: BP 127/46; PULSE 69; RESP 18; TEMP 36.9; O2SAT 100
--- NOTE | 2020-05-11 14:24 | PM.DS ---
DS: Admitting Diagnosis Admitting Diagnosis Admitting Diagnosis: Headache DS: Discharge Diagnosis Discharge Diagnosis (1) Headache: Qualifiers: Headache chronicity pattern: unspecified pattern Headache type: unspecified Intractability: not intractable Qualified Code(s): R51 - Headache Code(s): R51 - Headache Status: Acute Assessment and Plan: ----- Pt's HER is better with The improvement of his hyponatremia and p.r.n. Fioricet. brain MRI with contrast shows meningioma but no bleed. I think this is an incidental finding. His headache is likely due to his hyponatremia and lack of sleep. It does get better with Fioricet and he does not have any neurological deficits at this time. CTA normal. neurology consulted and agrees. The day of discharge his headache had resolved. He was given a few Fioricets but educated to use them very sparingly and that they do have aspirin in them. if he is using it more than once a week, he needs to follow-up with his primary care doctor/ or neurologist for additional recommendations on headache therapy (2) Hyponatremia: Code(s): E87.1 - Hypo-osmolality and hyponatremia Status: Acute Assessment and Plan: ----- on admission sodium was 120 and has improved to 128. the EMR shows his sodium at 133 September 2019. Unclear why he is hyponatremic at this time but could be due to him drinking a lot more water recently as his daughter has been encouraging him. diuretic stopped. He is to fluid restrict for a few days and get a redraw of his sodium in 1 week and follow-up with his primary care doctor (3) Chronic atrial fibrillation: Code(s): I48.20 - Chronic atrial fibrillation, unspecified Status: Acute Assessment and Plan: ----- patient has chronic atrial fibrillation is on amiodarone and warfarin. his warfarin was not restarted at discharge and his INR dropped to 1.5 the day of discharge. He was given 1 dose of Lovenox and warfarin was restarted. Continue amiodarone. Educated on stroke-like symptoms come back to emergency room for (4) Essential tremor: Code(s): G25.0 - Essential tremor Status: Inactive Assessment and Plan: ----- chronic. Will continue primidone but a lower dose. Will ask neurology to review home dosing and appreciate their recommendations (5) Type 2 diabetes mellitus without complication, without long-term current use of insulin: Code(s): E11.9 - Type 2 diabetes mellitus without complications Status: Acute Assessment and Plan: ----- relatively well controlled. Will do sliding scale insulin and hold metformin. (6) Weakness: Code(s): R53.1 - Weakness Status: Acute Assessment and Plan: ----- Continue PT and OT. (7) Glaucoma: Code(s): H40.9 - Unspecified glaucoma Status: Acute Assessment and Plan: ----- no acute problems. Continue home eye drops. DS: Summary Hospital Course Reason for hospitalization: headache, hyponatremia Hospital Course: patient is an 85-year-old male who presented emergency room for a significant headache that wakes him up from his sleep and is persisting for the last few days. He took Tylenol at home but it did not help. He had no neck stiffness, numbness, or tingling to any part of his body. He did feel a little more off balance and weaker than normal. He had an outpatient CT of his brain which was normal days prior to admission. Vitals in the ER were stable. White blood cell count normal. Sodium found to be 120. His last sodium which was September 2019 was at 133. patient mid for further workup and underwent a CTA and brain MRI. This showed a benign meningioma which was thought to be an incidental finding. Neurology was consulted and he was given some Fioricet which improved his headache significantly. As for sodium, he improved to 128 over his hospitalization with flui
--- NOTE | 2020-05-11 14:36 | WPDNEUROPN ---
Progress Note: A&P Assessment and Plan (1) Glaucoma: Code(s): H40.9 - Unspecified glaucoma Status: Acute (2) Type 2 diabetes mellitus without complication, without long-term current use of insulin: Code(s): E11.9 - Type 2 diabetes mellitus without complications Status: Acute (3) Chronic atrial fibrillation: Code(s): I48.20 - Chronic atrial fibrillation, unspecified Status: Acute (4) Weakness: Code(s): R53.1 - Weakness Status: Acute (5) Parkinson's disease dementia: Code(s): G20 - Parkinson's disease; F02.80 - Dementia in other diseases classified elsewhere without behavioral disturbance Status: Acute (6) Intention tremor: Code(s): G25.2 - Other specified forms of tremor Status: Acute (7) Arthritis of right shoulder region: Code(s): M19.011 - Primary osteoarthritis, right shoulder Status: Acute (8) Unspecified asthma, uncomplicated: Code(s): J45.909 - Unspecified asthma, uncomplicated Status: Acute (9) Cervical disc disease with myelopathy: Code(s): M50.00 - Cervical disc disorder with myelopathy, unspecified cervical region Status: Acute (10) Hypertensive heart disease with chronic diastolic congestive heart failure: Code(s): I11.0 - Hypertensive heart disease with heart failure; I50.32 - Chronic diastolic (congestive) heart failure Status: Acute (11) Vitamin D deficiency, unspecified: Code(s): E55.9 - Vitamin D deficiency, unspecified Status: Acute Additional Plan the patient is back to his baseline is going to be discharged and can have follow-up with Dr. Thomas in couple of months Review of Systems Review of Systems: All systems reviewed & are unremarkable except as noted in HPI and below Exam Const: General: comfortable and no acute distress HENMT: General nose exam: Normal nares present Mouth: Yes moist mucous membranes Eyes: General: appearance normal, both eyes and all related structures Neck: Neck: supple and no JVD Resp: Effort & Inspection: normal respiratory effort Auscultation: clear to auscultation bilaterally Cardio: Rate: regular rate Rhythm: regular rhythm GI: Auscultation: normal bowel sounds Skin: General skin exam: normal color and no rashes or lesions noted Neuro: Other: patient is awake alert well oriented his back to his baseline walking with a walker quite a bit his generalized weakness particularly the lower extremity has completely resolved as per patient and his daughter present at the time of the interview Extrem: General: normal to inspection Psych: Mental Status: mental status grossly normal Objective Data Vital Signs Vital Signs: Vital Signs - 24 hr 05/10/20 22:00 05/11/20 06:00 05/11/20 07:53 Temperature 37.2 C 36.7 C Pulse Rate 58 L 53 L 53 L Respiratory Rate 18 18 18 Blood Pressure 133/68 141/57 H Pulse Oximetry 99 100 100 05/11/20 14:00 Temperature 36.9 C Pulse Rate 69 Respiratory Rate 18 Blood Pressure 127/46 L Pulse Oximetry 100 Intake/Output Intake/Output: Intake & Output 05/08/20 05/09/20 05/10/20 05/11/20 23:59 23:59 23:59 23:59 Intake Total 927 860 620 Output Total 2550 1100 200 Balance -1623 -240 420 Meds/Results Medications: Active Medications Generic Name Dose Route Start Last Admin Trade Name Geraldq PRN Reason Stop Dose Admin Acetaminophen 650 mg 05/09/20 13:35 Tylenol Tablet PO Q4H PRN Headache Amiodarone HCl 200 mg 05/09/20 08:00 05/11/20 08:12 Pacerone PO 200 mg DAILY@0800 VIVIANE Administration Ascorbic Acid 1,000 mg 05/09/20 21:00 05/10/20 20:41 Vitamin C PO 1,000 mg HS VIVIANE Administration Atorvastatin Calcium 10 mg 05/09/20 21:00 05/09/20 21:05 Lipitor PO 10 mg Q48H VIVIANE Administration Butalbital/Aspirin/Caffeine 1 cap 05/09/20 15:07 05/11/20 04:22 Fioricet Capsule PO 1 cap Q4H PRN Administration headache
[2020-05-13 04:52] LABS: Osmolality, Urine 345 mOsm/kg (50-1200)
== END 2020-05-11 15:40 | disposition home health service (06) | DRG 641 ==
LOC: ANHED 22:56 → ANH3MEDSUR 23:22
PROVIDERS: Emergency Medicine; Physician Assistant; Admitting Provider Family Medicine; Emergency Provider Emergency Medicine; PCP Internal Medicine; Visit Provider Family Medicine
DX: E87.1 Hypo-osmolality and hyponatremia (principal); I50.32 Chronic diastolic (congestive) heart failure; I48.20 Chronic atrial fibrillation, unspecified; M50.00 Cervical disc disorder with myelopathy, unspecified cervical region; E78.5 Hyperlipidemia, unspecified; E11.9 Type 2 diabetes mellitus without complications; G62.9 Polyneuropathy, unspecified; H40.9 Unspecified glaucoma; G25.0 Essential tremor; I11.0 Hypertensive heart disease with heart failure; J45.909 Unspecified asthma, uncomplicated; E55.9 Vitamin D deficiency, unspecified
CPT/HCPCS: 36415; 70450; 70496; 70498; 70551; 70552; 71046; 72052; 80048; 80053; 81001; 82570; 83735; 83935; 84100; 84295; 84300; 84443; 84540; 85025; 85027; 85610; 85730; 93005; 96360; 96361; 97110; 97116; 97161; 97165; 97535; 99285; A9270; A9577; G0378; J1650; J7030; Q9967

== ENCOUNTER 2022-03-16 11:15 | Emergency (ER) | payer MEDICARE, SELFPAY ==
--- NOTE | ~2022-03-16 | XR_ITS ---
XR chest 1V portable DATE: 03/16/2022 12:28 INDICATION: Weakness TECHNIQUE: Portable upright AP chest on 03/16/2022 at 1221 hours COMPARISON: 05/08/2020 AP and lateral chest FINDINGS: Heart size is within normal range. There is mild aortic unfolding. No hilar or mediastinal enlargement. No pulmonary infiltrate or consolidation, pleural effusion or pulmonary vascular congestion or pneumo thorax is detected. Diffuse osteopenia. IMPRESSION: No active cardiopulmonary disease Reviewed, dictated and finalized at location A.
[2022-03-16 11:12] VITALS: BP 150/68; PULSE 55; RESP 20; TEMP 36.2; O2SAT 99
--- NOTE | 2022-03-16 11:18 | ECG_ITS ---
Measurements Intervals [place] Rate: 53 P: DC: 0 QRS: -60 QRSD: 100 T: 48 QT: 416 QTc: 390 Interpretive Statements SINUS OR ECTOPIC ATRIAL BRADYCARDIA LEFT AXIS DEVIATION INFERIOR INFARCT, AGE INDETERMINATE BASELINE ARTIFACT- I, II, III, AVR, AVL, AVF ABNORMAL ECG Electronically Signed On 03-16-2022 15:16:48 CDT by Juancarlos Marx D.O.
[2022-03-16 11:43] LABS: Basophils Percent Auto 0.3 % (0.2-1.2); Eosinophils Absolute Auto 0.5 K/mm3 (0-0.3); Eosinophils Percent Auto 8.3 % (0-4.4); Hematocrit 43.3 % (42.0-52.0); Hemoglobin 14.4 g/dL (14.0-18.0); Immature Granulocyte Absolute 0.02 K/mm3 (0.00-0.031); Immature Granulocyte Percent A 0.3 % (0-0.5); Lymphocytes Absolute Auto 1.44 K/mm3 (0.9-3.2); Mean Corpuscular HGB Conc 33.3 g/dl (32-36); Mean Corpuscular Hemoglobin 32.5 pg (26-34); Mean Corpuscular Volume 97.7 fl (80-100); Mean Platelet Volume 8.9 fl (7.4-10.4); Monocytes Absolute Auto 0.6 K/mm3 (0.1-0.6); Monocytes Percent Auto 9.2 % (2.6-8.5); Neutrophils Absolute Auto 3.5 K/mm3 (1.3-6.7); Neutrophils Percent Auto 57.9 % (45.5-73.1); Platelet Count Result 200 k/mm3 (150-375); Red Blood Count 4.43 M/mm3 (4.6-6.20); Red Cell Distribution Width 13.4 % (11.5-14.5)
[2022-03-16 11:52] LABS: Alanine Aminotransferase 28 U/L (6-50); Albumin Level 3.7 g/dL (3.5-5.1); Alkaline Phosphatase 75 U/L (38-126); Anion Gap 6 mmol/L (8-16); Aspartate Amino Transferase 37 U/L (17-59); Bilirubin,Total 0.3 mg/dL (0.2-1.3); Blood Urea Nitrogen 17 mg/dL (9-20); Calcium 7.9 mg/dL (8.4-10.2); Carbon Dioxide 26 mmol/L (22-30); Chloride 100 mmol/L (98-107); Estimated CRCL calculation 53 ml/min; Estimated Glomerular Filt Rate > 60; Glucose 99 mg/dL (65-110); Sodium 132 mmol/L (137-145)
[2022-03-16 11:59] VITALS: BP 103/46; PULSE 46; RESP 18; O2SAT 98
[2022-03-16 12:00] VITALS: BP 122/65; PULSE 47; RESP 16; O2SAT 98
--- NOTE | 2022-03-16 12:14 | PC.NURSE ---
Lab called to add BNP, states they will be able to
[2022-03-16 12:34] LABS: NT Pro B Type Natriuretic Pept 210 pg/mL (5-100)
[2022-03-16 12:38] LABS: Troponin I < 0.012 ng/mL (0.000-0.034)
[2022-03-16 12:39] VITALS: BP 129/74; PULSE 46; RESP 18; O2SAT 99
--- NOTE | 2022-03-16 12:43 | ED.WEAKNESS ---
HPI - Weakness General Chief complaint: Weakness Stated complaint: gen. weakness Time Seen by Provider: 03/16/22 11:17 History of Present Illness HPI Narrative: 87-year-old male presenting with episode of generalized weakness and feeling as if he was going to pass out while he was sitting on the toilet earlier to have a bowel movement, he states that he was able to get up, and sit down in a chair, and was feeling better, but overall still not feeling completely back to his normal self. Denies any chest pain or difficulty breathing, but he was concerned that he might be from his A. fib as he has had similar episodes in the past with his A. fib. Denies any nausea or vomiting, fevers or chills, cough. Related Data Home Medications Medication Instructions Recorded Confirmed latanoprost 0.005 % eye drops 1 drop ophthalmic (eye) HS 03/28/20 03/16/22 B-complex with vitamin C 1 tablet PO HS 05/09/20 03/16/22 amiodarone 200 mg tablet 200 mg PO DAILY 05/09/20 03/16/22 ascorbic acid (vitamin C) 1,000 mg 1 g PO HS 05/09/20 03/16/22 tablet fexofenadine 180 mg tablet 180 mg PO DAILY 05/09/20 03/16/22 (Allergy Relief (fexofenadine)) polyethylene glycol 3350 17 17 g PO EVERY OTHER DAY 05/09/20 03/16/22 gram/dose oral powder (Miralax) warfarin 5 mg tablet See Rx Instructions .Route .COMPLEX 05/09/20 03/16/22 warfarin 7.5 mg tablet See Rx Instructions .Route .COMPLEX 05/09/20 03/16/22 furosemide 20 mg tablet 20 mg PO DAILY 11/14/20 03/16/22 zinc 50 mg tablet 50 mg PO DAILY 01/15/21 03/16/22 cholecalciferol (vitamin D3) 75 75 mcg PO DAILY 05/07/21 03/16/22 mcg (3,000 unit) tablet Allergies Allergy/AdvReac Type Severity Reaction Status Date / Time naproxen Allergy Severe SWELLING/SO Verified 01/15/21 10:44 B Review of Systems Review of Systems: CONST: No fever. HEENT: No sore throat C/V: No chest pain RESP: No cough GI: No nausea or vomiting : No dysuria. M/S: No joint pain. SKIN: No rash. NEURO: Lightheadedness PSYCH: [No depression] [facility] Past Medical History Medical History Arthritis Cataract Cervical vertebral fusion Chronic atrial fibrillation Chronic diastolic (congestive) heart failure Encounter to establish care Essential tremor Eye exam normal Glaucoma Hearing loss Mixed hyperlipidemia Neck pain, acute Routine eye exam Seasonal allergies Type 2 diabetes mellitus without complication, without long-term current use of insulin Unspecified fall, initial encounter Family History Family History Father Cerebrovascular accident Sibling Asthma Other Diabetes mellitus Family history of arthritis Hypertension Social History Social History Social History: patient is a nonsmoker and never has smoked. He does not use alcohol or drugs. 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 His power of employment attorney is Jia Leon, daughter. He would like to be a full code Smoking status: Never smoker Tobacco type: smokeless tobacco Smokeless tobacco user: chewing tobacco Alcohol intake: never Substance use: never Gender identity (if verbalized by the patient): Male Spiritual care concerns: Yes (baptism) Exam Narrative: EXAMINATION OF ORGAN SYSTEMS/BODY AREAS: Constitutional: Vital signs per nursing GENERAL:[No acute distress, non-toxic appearing.] HEAD: Normal with no signs of head trauma. EYES: EOMI, conjunctiva normal ENT: Hearing grossly intact LUNGS: Nonlabored breathing. HEART: [Regular rate and rhythm] ABD: [Soft], [nontender to palpation] EXT: Normal range of motion SKIN: [No rashes or lesions.] NEURO: [Alert and oriented x 3. No gross focal sensory or strength deficits.] PSYCH: Normal affect Course Vital Signs Vital signs: Vital Signs Temperature 97.2 F L 03/16/22 11:12 Pulse Rate 55 L 03/16/22 11:12 Respiratory Rate 20 03/16
--- NOTE | 2022-03-16 13:13 | PC.NURSE ---
Pt able to ambulate in an[place] with no assistance and in no distress.
[2022-03-16 13:19] LABS: SARS-CoV-2 RNA PCR Negative
[2022-03-16 13:52] VITALS: BP 123/88; PULSE 77; RESP 16; O2SAT 98
== END 2022-03-16 13:52 | disposition home or self-care (01) ==
PROVIDERS: Emergency Provider Emergency Medicine; PCP Nurse Practitioner Family
DX: R55 Syncope and collapse (principal); G25.0 Essential tremor; R60.9 Edema, unspecified; I48.20 Chronic atrial fibrillation, unspecified; I50.32 Chronic diastolic (congestive) heart failure; E11.9 Type 2 diabetes mellitus without complications; Z20.822 Contact with and (suspected) exposure to COVID-19; Z79.01 Long term (current) use of anticoagulants
CPT/HCPCS: 36415; 71045; 80053; 83880; 84484; 85025; 93005; 99284; C9803; U0003; U0005

== ENCOUNTER 2022-03-28 00:45 | Emergency (ER) | payer MEDICARE, SELFPAY ==
--- NOTE | ~2022-03-28 | CT_ITS ---
EXAMINATION: CT lumbar spine wo con DATE: 03/28/2022 02:34 INDICATION: Low back pain. TECHNIQUE: Computed tomography (CT) of the lumbar spine was performed without intravenous contrast. A utomated exposure control and iterative reconstruction technique were employed. The dose-length produ ct was 1204.99 mGy-cm. COMPARISON: None FINDINGS: There is a 4.1 cm cyst in right kidney. There is a 10 mm hemorrhagic cyst in right kidney. There is 8 degrees levocurvature of lumbar spine. There is 4 mm retrolisthesis of L2 on L3 and L3 on L4 and 4 mm anterolisthesis of L5 on S1. There is mild chronic anterior wedging of T12-L2 vertebral b odies. There is mildly decreased disc height at L1-L2, moderately decreased disc height at L2-L3, sev erely decreased disc height at L3-L4 and L4-L5, and mildly decreased disc height at L5-S1 with endpla te remodeling. There is Baastrup disease from L2-L3 through L4-L5. The following disc levels are spec ifically discussed: L1-L2: The disc is bulging. There is mild bilateral facet joint osteoarthritis. There is mild bilater al neural foraminal stenosis. There is mild central canal stenosis. L2-L3: The disc is bulging. There is mild right and moderate left facet joint osteoarthritis. There i s moderate right and mild left neural foraminal stenosis. There is mild central canal stenosis. L3-L4: The disc is bulging. There is severe bilateral facet joint osteoarthritis. There is moderate b ilateral neural foraminal stenosis. There is mild central canal stenosis. L4-L5: The disc is bulging. There is severe bilateral facet joint osteoarthritis. There is moderate b ilateral neural foraminal stenosis. There is mild central canal stenosis. L5-S1: The disc is bulging. There is severe bilateral facet joint osteoarthritis. There is moderate b ilateral neural foraminal stenosis. There is mild central canal stenosis. IMPRESSION: 1. Severe lumbar spondylosis. Reviewed, dictated and finalized at location A.
[2022-03-28 00:50] VITALS: BP 124/60; PULSE 70; RESP 18; TEMP 36.6; O2SAT 98
--- NOTE | 2022-03-28 02:26 | ED.BACK ---
HPI - Back Pain/Injury General Chief Complaint: Back Pain/Injury Stated Complaint: back pain Time Seen by Provider: 03/28/22 02:00 Source: patient History of Present Illness HPI Narrative: Patient presents with low back pain. Patient ports he woke up a couple days ago with the pain and his pain is gotten progressively worse since then he is attempted [id number] medications without relief so he came to the ER for further evaluation. Pain is primarily in his lower back is achy worse with any sort of movement of his torso particular and trying to stand up or sit down. Does not radiate anywhere. Denies any focal numbness or weakness denies any bowel or bladder incontinence. Reports he had a lumbar back surgery several years ago as he was having pain shoot down his leg which surgery resolved. Does not currently have any radiating pain. He denies any trauma major change in weight, recent spinal rotation, history of IV drug use. Related Data Home Medications Medication Instructions Recorded Confirmed latanoprost 0.005 % eye drops 1 drop ophthalmic (eye) HS 03/28/20 03/21/22 B-complex with vitamin C 1 tablet PO HS 05/09/20 03/21/22 amiodarone 200 mg tablet 200 mg PO DAILY 05/09/20 03/21/22 ascorbic acid (vitamin C) 1,000 mg 1 g PO HS 05/09/20 03/21/22 tablet fexofenadine 180 mg tablet 180 mg PO DAILY 05/09/20 03/21/22 (Allergy Relief (fexofenadine)) warfarin 5 mg tablet See Rx Instructions .Route .COMPLEX 05/09/20 03/21/22 warfarin 7.5 mg tablet See Rx Instructions .Route .COMPLEX 05/09/20 03/21/22 furosemide 20 mg tablet 20 mg PO DAILY 11/14/20 03/21/22 zinc 50 mg tablet 50 mg PO DAILY 01/15/21 03/21/22 cholecalciferol (vitamin D3) 75 75 mcg PO DAILY 05/07/21 03/21/22 mcg (3,000 unit) tablet polyethylene glycol 3350 17 17 g PO EVERY OTHER DAY PRN 03/21/22 03/21/22 gram/dose oral powder (Miralax) constipation Allergies Allergy/AdvReac Type Severity Reaction Status Date / Time naproxen Allergy Severe SWELLING/SO Verified 03/28/22 02:36 B Review of Systems Review of Systems: CONSTITUTIONAL: Denies fever, chills, or sweats. EYES: Denies visual changes, redness, or discharge. ENT: Denies rhinorrhea, congestion, sore throat, or otalgia. CARDIOVASCULAR: Denies chest pain, palpitations, or edema. RESPIRATORY: Denies cough or dyspnea. GASTROINTESTINAL: Denies abdominal pain, nausea, vomiting, or diarrhea. GENITOURINARY: Denies dysuria or hematuria. SKIN: Denies rash or itching. MUSCULOSKELETAL: Denies joint pain, or myalgia. NEUROLOGIC: Denies headache, numbness, dizziness, or weakness. PSYCHIATRIC: Denies anxiety or depression. All systems reviewed & are unremarkable except as noted in HPI and below PMFSH Past Medical History Medical History Arthritis Cataract Cervical vertebral fusion Chronic atrial fibrillation Chronic diastolic (congestive) heart failure Edema, lower extremity Encounter to establish care Essential tremor Eye exam normal Glaucoma Hearing loss Mixed hyperlipidemia Neck pain, acute Routine eye exam Seasonal allergies Type 2 diabetes mellitus without complication, without long-term current use of insulin Unspecified fall, initial encounter Family History Family History Father Cerebrovascular accident Sibling Asthma Other Diabetes mellitus Family history of arthritis Hypertension Social History Social History Social History: patient is a nonsmoker and never has smoked. He does not use alcohol or drugs. 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 He would like to be a full code Smoking status: Never smoker Tobacco type: smokeless tobacco Smokeless tobacco user: chewing tobacco Alcohol intake: never Substance use: never Gender identity (if verbalized by the patient): Male
[2022-03-28 02:27] LABS: Basophils Percent Auto 0.4 % (0.2-1.2); Eosinophils Absolute Auto 0.2 K/mm3 (0-0.3); Eosinophils Percent Auto 3.9 % (0-4.4); Hematocrit 41.5 % (42.0-52.0); Hemoglobin 14.3 g/dL (14.0-18.0); Immature Granulocyte Absolute 0.01 K/mm3 (0.00-0.031); Immature Granulocyte Percent A 0.2 % (0-0.5); Lymphocytes Absolute Auto 1.26 K/mm3 (0.9-3.2); Lymphocytes Percent Auto 24.5 % (18.3-44.2); Mean Corpuscular HGB Conc 34.5 g/dl (32-36); Mean Corpuscular Hemoglobin 32.8 pg (26-34); Mean Corpuscular Volume 95.2 fl (80-100); Monocytes Absolute Auto 0.4 K/mm3 (0.1-0.6); Monocytes Percent Auto 7.6 % (2.6-8.5); Neutrophils Absolute Auto 3.3 K/mm3 (1.3-6.7); Neutrophils Percent Auto 63.4 % (45.5-73.1); Platelet Count Result 190 k/mm3 (150-375); Red Blood Count 4.36 M/mm3 (4.6-6.20); Red Cell Distribution Width 13.2 % (11.5-14.5); White Blood Count 5.1 K/mm3 (4.5-10.0)
[2022-03-28 02:36] VITALS: BP 142/66; PULSE 92; RESP 16; O2SAT 99
[2022-03-28 02:56] LABS: Add Urine Microscopic? YES; Appearance Urine Clear (Clear); Bilirubin Urine Negative (Negative); Blood Urine Trace-lysed (Negative); Color Urine Yellow (Yellow); Glucose Urine UA Negative (Negative); Ketones Urine Negative (Negative); Leukocyte Esterase Ur Negative LEU/UL (Negative); Nitrate Urine Negative (Negative); Protein Urine Negative (Negative); Specific Grav Ur 1.015 (1.001-1.035); Urobilinogen Urine 0.2 mg/dL (<2.0)
[2022-03-28 03:01] LABS: Alanine Aminotransferase 29 U/L (6-50); Albumin Level 3.7 g/dL (3.5-5.1); Alkaline Phosphatase 80 U/L (38-126); Anion Gap 5 mmol/L (8-16); Aspartate Amino Transferase 34 U/L (17-59); Bilirubin,Total 0.4 mg/dL (0.2-1.3); Blood Urea Nitrogen 16 mg/dL (9-20); Calcium 7.9 mg/dL (8.4-10.2); Carbon Dioxide 28 mmol/L (22-30); Chloride 98 mmol/L (98-107); Estimated CRCL calculation 57 ml/min; Estimated Glomerular Filt Rate > 60; Glucose 111 mg/dL (65-110); Sodium 131 mmol/L (137-145)
[2022-03-28 03:05] LABS: WBC Urine 0-3 /hpf
[2022-03-28 03:58] VITALS: BP 121/66; PULSE 52; RESP 16; O2SAT 97
[2022-03-28 05:05] VITALS: BP 124/65; PULSE 47; RESP 14; O2SAT 98
[2022-03-28 06:11] VITALS: BP 164/72; PULSE 51; RESP 16; O2SAT 98
== END 2022-03-28 06:22 | disposition home or self-care (01) ==
PROVIDERS: Emergency Provider Emergency Medicine; PCP Nurse Practitioner Family
DX: M54.50 Low back pain, unspecified (principal); I48.20 Chronic atrial fibrillation, unspecified; I50.32 Chronic diastolic (congestive) heart failure; E78.2 Mixed hyperlipidemia; E11.9 Type 2 diabetes mellitus without complications; H40.9 Unspecified glaucoma; M19.90 Unspecified osteoarthritis, unspecified site; Z79.01 Long term (current) use of anticoagulants; Z79.84 Long term (current) use of oral hypoglycemic drugs; M47.816 Spondylosis without myelopathy or radiculopathy, lumbar region
CPT/HCPCS: 36415; 72131; 80053; 81001; 85025; 99284

== ENCOUNTER 2022-04-02 19:46 | Inpatient (IN) | payer MEDICARE, SELFPAY ==
--- NOTE | ~2022-04-02 | XR_ITS ---
EXAMINATION: XR chest 1V portable Exam Date/Time: 04/02/2022 20:00 CDT HISTORY: covid+ since yesterday ,sob,cough fever, HX A.FIB,CHF Comparison: 03/16/2022. RESULT: Lines, tubes, and devices: None. Lungs and pleura: Clear. Cardiomediastinal silhouette: Stable cardiomediastinal silhouette. Other: No acute osseous or upper abdominal finding. IMPRESSION: No acute cardiopulmonary process. Reviewed, dictated and finalized at location K.
--- NOTE | 2022-04-02 19:48 | ECG_ITS ---
Measurements Intervals [place] Rate: 67 P: 47 AK: 214 QRS: -78 QRSD: 101 T: 49 QT: 374 QTc: 395 Interpretive Statements SINUS RHYTHM WITH FIRST DEGREE AV BLOCK POSSIBLE ANTERIOR MYOCARDIAL INFARCTION , PROBABLY OLD [30 ms Q WAVE IN V3/V4, OR R < 0.2 mV IN V4] INFERIOR MYOCARDIAL INFARCTION , PROBABLY OLD [40+ ms Q WAVE AND/OR ST/T ABNORMALITY IN II/aVF] COMPARED TO ECG 03/16/2022 11:23:54 SINUS RHYTHM NOW PRESENT FIRST DEGREE AV BLOCK NOW PRESENT Electronically Signed On 04-03-2022 11:14:36 CDT by Sallie Marroquin MD
[2022-04-02 19:54] VITALS: BP 117/64; PULSE 74; RESP 19; TEMP 37.9; O2SAT 98
[2022-04-02 20:32] LABS: Basophils Percent Auto 0.5 % (0.2-1.2); Eosinophils Percent Auto 0.9 % (0-4.4); Hematocrit 38.7 % (42.0-52.0); Hemoglobin 13.2 g/dL (14.0-18.0); Immature Granulocyte Absolute 0.01 K/mm3 (0.00-0.031); Immature Granulocyte Percent A 0.2 % (0-0.5); Lymphocytes Absolute Auto 0.67 K/mm3 (0.9-3.2); Lymphocytes Percent Auto 15.5 % (18.3-44.2); Mean Corpuscular HGB Conc 34.1 g/dl (32-36); Mean Corpuscular Hemoglobin 32.7 pg (26-34); Mean Corpuscular Volume 95.8 fl (80-100); Mean Platelet Volume 9.4 fl (7.4-10.4); Monocytes Absolute Auto 0.5 K/mm3 (0.1-0.6); Monocytes Percent Auto 10.4 % (2.6-8.5); Neutrophils Absolute Auto 3.1 K/mm3 (1.3-6.7); Neutrophils Percent Auto 72.5 % (45.5-73.1); Platelet Count Result 141 k/mm3 (150-375); Red Blood Count 4.04 M/mm3 (4.6-6.20); Red Cell Distribution Width 13.7 % (11.5-14.5); White Blood Count 4.3 K/mm3 (4.5-10.0)
[2022-04-02 20:38] VITALS: O2SAT 98
[2022-04-02 20:39] VITALS: O2SAT 98
[2022-04-02 20:41] VITALS: BP 112/80; PULSE 70; RESP 21; O2SAT 98
[2022-04-02 20:51] LABS: Lactic Acid Reflex 1.5 mmol/L (0.7-2.0)
[2022-04-02 20:52] LABS: Alanine Aminotransferase 30 U/L (6-50); Albumin Level 3.8 g/dL (3.5-5.1); Alkaline Phosphatase 69 U/L (38-126); Anion Gap 5 mmol/L (8-16); Aspartate Amino Transferase 42 U/L (17-59); Bilirubin,Total 0.2 mg/dL (0.2-1.3); Blood Urea Nitrogen 18 mg/dL (9-20); Calcium 7.6 mg/dL (8.4-10.2); Carbon Dioxide 25 mmol/L (22-30); Chloride 97 mmol/L (98-107); Estimated CRCL calculation 63 ml/min; Estimated Glomerular Filt Rate > 60; Glucose 139 mg/dL (65-110); Sodium 127 mmol/L (137-145)
[2022-04-02 21:03] LABS: NT Pro B Type Natriuretic Pept 274 pg/mL (5-100); Troponin I < 0.012 ng/mL (0.000-0.034)
[2022-04-02 21:45] VITALS: BP 138/65; PULSE 65; RESP 17; O2SAT 100
--- NOTE | 2022-04-02 22:34 | ED.GENADULT ---
HPI - General Adult General Chief complaint: Upper Respiratory Infection Stated complaint: covid + with difficulty breathing Time Seen by Provider: 04/02/22 19:48 Source: patient Mode of arrival: EMS Limitations: no limitations History of Present Illness HPI narrative: 87-year-old with a history of hypertension, Parkinson tremor atrial fibrillation brought in from home with complaints of shortness of breath with minimal ambulation. Patient states that he has been having cold cough congestion symptoms since last night home COVID test done which was positive this morning. Since this afternoon he states that he is having more shortness of breath with ambulation. He denies any chest pain. He states that he has low-grade fever. No history of nausea, vomiting or diarrhea. Upon EMS arrival his SPO2 was 88% he was placed on 4 L and it is now 94 to 95%. Onset (ago): day(s) (1) Severity: moderate Related Data Home Medications Medication Instructions Recorded Confirmed latanoprost 0.005 % eye drops 1 drop ophthalmic (eye) HS 03/28/20 03/21/22 B-complex with vitamin C 1 tablet PO HS 05/09/20 03/21/22 amiodarone 200 mg tablet 200 mg PO DAILY 05/09/20 03/21/22 ascorbic acid (vitamin C) 1,000 mg 1 g PO HS 05/09/20 03/21/22 tablet fexofenadine 180 mg tablet 180 mg PO DAILY 05/09/20 03/21/22 (Allergy Relief (fexofenadine)) warfarin 5 mg tablet See Rx Instructions .Route .COMPLEX 05/09/20 03/21/22 warfarin 7.5 mg tablet See Rx Instructions .Route .COMPLEX 05/09/20 03/21/22 furosemide 20 mg tablet 20 mg PO DAILY 11/14/20 03/21/22 zinc 50 mg tablet 50 mg PO DAILY 01/15/21 03/21/22 cholecalciferol (vitamin D3) 75 75 mcg PO DAILY 05/07/21 03/21/22 mcg (3,000 unit) tablet polyethylene glycol 3350 17 17 g PO EVERY OTHER DAY PRN 03/21/22 03/21/22 gram/dose oral powder (Miralax) constipation Allergies Allergy/AdvReac Type Severity Reaction Status Date / Time naproxen Allergy Severe SWELLING/SO Verified 04/02/22 19:58 B Review of Systems Review of Systems: All systems reviewed & are unremarkable except as noted in HPI and below Constitutional: Constitutional: Reports no additional constitutional complaints Eyes: Eyes: Reports no additional eye complaints ENT: Reports system reviewed and no additional complaints, except as documented Cardiovascular: Cardiovascular: Reports no additional cardiovascular complaints Respiratory: Respiratory: Reports as per HPI Gastrointestinal: Gastrointestinal: Reports no additional gastrointestinal complaints Genitourinary: Genitourinary: Reports no additional male genitourinary complaints Musculoskeletal: Musculoskeletal: Reports no additional musculoskeletal complaints Neurologic: Reports system reviewed and no additional complaints, except as documented Endocrine: Endocrine: Reports no additional endocrine complaints Hematologic/Lymphatic: Hematologic/Lymphatic: Reports no additional hematologic/lymphatic complaints Allergic/Immunologic: Allergic/Immunologic: Reports no additional allergic/immunologic complaints [facility] Past Medical History Medical History Arthritis Cataract Cervical vertebral fusion Chronic atrial fibrillation Chronic diastolic (congestive) heart failure Edema, lower extremity Encounter to establish care Essential tremor Eye exam normal Glaucoma Hearing loss Mixed hyperlipidemia Neck pain, acute Routine eye exam Seasonal allergies Type 2 diabetes mellitus without complication, without long-term current use of insulin Unspecified fall, initial encounter Family History Family History Father Cerebrovascular accident Sibling Asthma Other Diabetes mellitus Family history of arthritis Hypertension Social History Social History Social History: patient is a nonsmoker and never has smoked. He do
[2022-04-02 23:41] LABS: SARS-CoV-2 RNA PCR Positive
[2022-04-03] VITALS (10 sets, daily range): BP systolic 134–154; BP diastolic 55–97; PULSE 59–73; RESP 16–21; TEMP 36.3–37.1; O2SAT 95–100; BMI 32.2
--- NOTE | 2022-04-03 00:06 | PC.NURSE ---
This patient, Truong Higuera, was admitted to [facility] Surg Room 321-02. Patient/family oriented to hospital policies and general routines including ID bracelet, bed and alarms, visiting hours, pain management, procedures, bathroom and other care routines, personal items, smoking policy, room service/diet, and visiting hours. Information on how to activate the Rapid Response Team has been discussed. Patient/Family are encouraged to report perceived risks to care and to ask questions if they do not understand what they are told or what they should do.
--- NOTE | 2022-04-03 00:48 | PM.IMHP ---
H&P: HPI History of Present Illness Date/Time: 04/03/22 00:48 Chief Complaint: Shortness of breath Narrative: This is an 87-year-old male with past medical history significant for atrial fibrillation, rate control and anticoagulated, essential tremors, type 2 diabetes mellitus, hypertension. Patient presents to the emergency room due to shortness of breath, cough, no sputum production, watery eyes, sore throat, chills, denies any nausea, vomiting, diarrhea. Patient is vaccinated and has had booster as well. His daughter brought home a home kit test for COVID which was positive when taken. In emergency room patient was found to be saturating in the low 80s and was placed on supplemental oxygen by nasal cannula. Patient has been admitted for further evaluation management and treatment. Review of Systems Review of Systems: Watery burning eyes burning throat shortness of breath chills positive COVID home kit test Constitutional: Constitutional: Reports chills, Reports fatigue, Denies fever(s), Reports lethargy, Reports malaise, Denies night sweats and Reports weakness Eyes: Eyes: Denies change in vision Cardiovascular: Cardiovascular: Denies chest pain, Denies lightheadedness, Denies palpitations, Reports dyspnea and Reports dyspnea on exertion Respiratory: Respiratory: Denies change in phlegm color, Denies chest congestion, Reports cough, Denies excessive phlegm production, Denies pain on inspiration and Reports dyspnea Gastrointestinal: Gastrointestinal: Denies abdominal pain, Denies dyspepsia, Denies heartburn, Denies diarrhea and Denies nausea Genitourinary: Genitourinary: Reports no additional male genitourinary complaints and Reports as per HPI Musculoskeletal: Musculoskeletal: Reports myalgias Integumentary/Breasts: Skin/Breast: Denies rash Neurologic: Denies focal weakness and Denies Sensory deficit (Neuro) Psychiatric: Psychiatric: Reports no additional psychiatric complaints and Reports as per HPI Endocrine: Endocrine: Denies cold intolerance, Reports fatigue, Denies flushing, Denies heat intolerance, Denies polyphagia, Denies polydipsia and Denies palpitations Hematologic/Lymphatic: Hematologic/Lymphatic: Reports no additional hematologic/lymphatic complaints and Reports as per HPI Allergic/Immunologic: Allergic/Immunologic: Reports no additional allergic/immunologic complaints and Reports as per HPI [facility] Past Medical History Medical History (Updated 04/03/22 @ 04:48 by Delonte Trinh MD) Arthritis Cataract Cervical vertebral fusion Chronic atrial fibrillation Chronic diastolic (congestive) heart failure Edema, lower extremity Encounter to establish care Essential tremor Eye exam normal Glaucoma Hearing loss Mixed hyperlipidemia Neck pain, acute Routine eye exam Seasonal allergies Type 2 diabetes mellitus without complication, without long-term current use of insulin Unspecified fall, initial encounter Family History Family History Father Cerebrovascular accident Sibling Asthma Other Diabetes mellitus Family history of arthritis Hypertension Social History Social History Social History: patient is a nonsmoker and never has smoked. He does not use alcohol or drugs. 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 He would like to be a full code Smoking status: Never smoker Smokeless tobacco user: chewing tobacco Second hand tobacco smoke exposure: No Alcohol intake: never Substance use: never Substance use type: does not use Gender identity (if verbalized by the patient): Male Spiritual care concerns: Yes (taoism) Meds Home Medications and Allergies Home Medications Medication Instructions Recorded Confirmed Type latanoprost 0.005 % eye drops 1 drop ophthalmic (eye) HS 03/28/20 04/03/22 History B-complex with vitamin C 1 ta
[2022-04-03] MEDS: SODIUM CHLORIDE 0.9% IV 1,000 ML 75 ML IV CONT (01:07)
[2022-04-03 05:59] LABS: Basophils Percent Auto 0.2 % (0.2-1.2); Hematocrit 38.1 % (42.0-52.0); Hemoglobin 13.3 g/dL (14.0-18.0); Immature Granulocyte Absolute 0.01 K/mm3 (0.00-0.031); Immature Granulocyte Percent A 0.2 % (0-0.5); Lymphocytes Absolute Auto 0.76 K/mm3 (0.9-3.2); Lymphocytes Percent Auto 18.2 % (18.3-44.2); Mean Corpuscular HGB Conc 34.9 g/dl (32-36); Mean Corpuscular Hemoglobin 32.9 pg (26-34); Mean Corpuscular Volume 94.3 fl (80-100); Mean Platelet Volume 9.3 fl (7.4-10.4); Monocytes Absolute Auto 0.3 K/mm3 (0.1-0.6); Monocytes Percent Auto 8.2 % (2.6-8.5); Neutrophils Absolute Auto 3.1 K/mm3 (1.3-6.7); Neutrophils Percent Auto 73.2 % (45.5-73.1); Platelet Count Result 146 k/mm3 (150-375); Red Blood Count 4.04 M/mm3 (4.6-6.20); Red Cell Distribution Width 13.6 % (11.5-14.5); White Blood Count 4.2 K/mm3 (4.5-10.0)
[2022-04-03 06:08] LABS: INR 2.3; Prothrombin Time 24.6 Seconds (11.1-14.7)
[2022-04-03 06:18] LABS: Anion Gap 5 mmol/L (8-16); Blood Urea Nitrogen 14 mg/dL (9-20); Calcium 7.6 mg/dL (8.4-10.2); Carbon Dioxide 24 mmol/L (22-30); Chloride 97 mmol/L (98-107); Estimated CRCL calculation 70 ml/min; Estimated Glomerular Filt Rate > 60; Glucose 122 mg/dL (65-110); Potassium 4.3 mmol/L (3.4-5.0); Sodium 126 mmol/L (137-145)
--- NOTE | 2022-04-03 07:08 | PHAR ---
VERIFIED HOME VIT D 200UNIT TAB, VIT C 1000MG TAB, VIT B COMPLEX TAB, METFORMIN 1000 MG TAB, WARFARIN 7.5 MG TAB, WARFARIN 5 MG TAB, LATANOPROST 0.005% OPTH SOLU, MONTELUKAST 10 MG TAB, PRIMIDONE 250MG TAB, AMIODARONE 200MG TAB, ATORVASTATIN 10 MG TAB, FUROSEMIDE 20 MG TAB, TELMISARTAN 40MG TAB, & FEXOFENADINE 180MG TAB AND SENT THEM TO [facility] FOR PATIENT USE.
[2022-04-03] MEDS: AMIODARONE HCL 200 MG TABLET 1 EACH BY MOUTH (09:03)
[2022-04-03] MEDS: ATORVASTATIN 10 MG TABLET 1 EACH BY MOUTH (09:05)
[2022-04-03] MEDS: FUROSEMIDE 20 MG TABLET 1 EACH BY MOUTH (09:07)
[2022-04-03] MEDS: PRIMIDONE 250 MG TABLET 1 EACH BY MOUTH ×3 (09:07→16:00)
[2022-04-03] MEDS: TELMISARTAN 40 MG TABLET 1 EACH BY MOUTH (09:08)
--- NOTE | 2022-04-03 09:29 | PM.IMPN ---
Progress Note: A&P Assessment and Plan (1) Pneumonia due to COVID-19 virus: Code(s): U07.1 - COVID-19; J12.82 - Pneumonia due to coronavirus disease 2019 Status: Acute Assessment and Plan: Place in COVID19 isolation precautions, cardiac monitoring, and continuous pulse ox Monitor serum electrolytes, CRP, Lactic acid, troponin, CBC, WBC, temperature curve and follow cultures Oxygen via NC; wean as tolerated. Keep spO2 greater than 91% Hold IV abx, minimal leuokocytosis, if patient appears to have a bacterial pneumonia, IV Ceftriaxone 2 gram IV q24hr and Azithromycin 500mg IV 24 hours will be initiated Consider Consulting Pulmonary if the patient has an increased oxygen demand. Patient does not wear oxygen at baseline. When appropriate start CPAP or Vapotherm to maintain oxygen saturation Pt is a candidate for Dexamethasone, continue treatment according to suggested guidelines. dexamethasone 6 mg IV daily x 10 days, or until discharge PRN albuterol MDI and mucinex BID PO. If oxygen requirement increase, consider baricitinib (RASHEL inhibtor) 4 mg PO daily for 14 days, or until discharge. Add Imodium for diarrhea GI prophylaxis: PPI Hold IV fluids due to possible fluid volume overload due to COVID, consider IV Lasix if patient appears to be fluid volume overloaded (2) Acute respiratory failure with hypoxia: Code(s): J96.01 - Acute respiratory failure with hypoxia Status: Acute Assessment and Plan: On supplemental oxygen by nasal cannula Continue to monitor (3) Type 2 diabetes mellitus without complication, without long-term current use of insulin: Code(s): E11.9 - Type 2 diabetes mellitus without complications Status: Acute Assessment and Plan: Insulin Lispro sliding scale, Accu-checks qAc and HS and Hold oral hypoglycemics Obtain a HgbA1c (4) Chronic atrial fibrillation: Code(s): I48.20 - Chronic atrial fibrillation, unspecified Status: Acute Assessment and Plan: Rate controlled anticoagulated (5) Hypertensive heart disease with chronic diastolic congestive heart failure: Code(s): I11.0 - Hypertensive heart disease with heart failure; I50.32 - Chronic diastolic (congestive) heart failure Status: Acute Assessment and Plan: Continue home meds Continue to monitor (6) Essential tremor: Code(s): G25.0 - Essential tremor Status: Acute Assessment and Plan: Continue primidone (7) Chronic diastolic (congestive) heart failure: Code(s): I50.32 - Chronic diastolic (congestive) heart failure Status: Acute Assessment and Plan: Continue home meds Daily intake and output (8) Hyponatremia: Code(s): E87.1 - Hypo-osmolality and hyponatremia Status: Acute Assessment and Plan: Continue to trend sodium levels. Discontinue IV fluids. Patient appears euvolemic. Baseline sodium between 126 and 132. Subjective Date/time seen: 04/03/22 09:29 Interval history: Patient is doing well this morning. He was initially on 4 L of oxygen during the night titrated down to 1 L of oxygen this morning. Continue dexamethasone. Patient is agreeable to treatment plan. He denies any additional shortness of breath, chest pain, bilateral lower extremity swelling. IV fluids were discontinued his hyponatremia has occurred. Patient does not appear hypovolemic. Continue to trend sodium. Review of Systems Review of Systems: All systems reviewed & are unremarkable except as noted in HPI and below Exam Narrative: General: No acute distress. Mental Status: Awake, alert and oriented to person, place, and time with clear speech. Skin: Skin in warm, dry and intact without rashes or lesions. Head: Normocephalic and atraumatic. Eyes: Conjunctivae are clear without exudates or hemorrhage. Sclera is non-icteric. EOM are intact, PERRLA. Ears: The external ear and canal are non-tender and without swelling or discharg
[2022-04-03] MEDS: WARFARIN (*PBKC) 7.5 MG TABLET 1 EACH BY MOUTH (16:00)
[2022-04-03] MEDS: MONTELUKAST SODIUM 10 MG TABLET BY MOUTH (21:14)
[2022-04-03] MEDS: ASCORBIC ACID 1000 MG 1 EACH BY MOUTH (21:14)
[2022-04-03] MEDS: LATANOPROST 0.005% OP SOLN 2.5 ML BTL 1 DROP EACH EYE (21:22)
[2022-04-04 02:00] VITALS: BP 134/80; PULSE 60; RESP 16; TEMP 36.8; O2SAT 98
[2022-04-04 06:00] VITALS: BP 165/70; PULSE 53; RESP 20; TEMP 36.2; O2SAT 99
[2022-04-04 06:09] LABS: Basophils Percent Auto 0.2 % (0.2-1.2); Eosinophils Absolute Auto 0.1 K/mm3 (0-0.3); Eosinophils Percent Auto 1.6 % (0-4.4); Hematocrit 39.6 % (42.0-52.0); Hemoglobin 13.4 g/dL (14.0-18.0); Immature Granulocyte Absolute 0.01 K/mm3 (0.00-0.031); Immature Granulocyte Percent A 0.2 % (0-0.5); Lymphocytes Absolute Auto 1.49 K/mm3 (0.9-3.2); Lymphocytes Percent Auto 34.1 % (18.3-44.2); Mean Corpuscular HGB Conc 33.8 g/dl (32-36); Mean Corpuscular Hemoglobin 32.7 pg (26-34); Mean Corpuscular Volume 96.6 fl (80-100); Mean Platelet Volume 9.4 fl (7.4-10.4); Monocytes Absolute Auto 0.5 K/mm3 (0.1-0.6); Monocytes Percent Auto 11.2 % (2.6-8.5); Neutrophils Absolute Auto 2.3 K/mm3 (1.3-6.7); Neutrophils Percent Auto 52.7 % (45.5-73.1); Platelet Count Result 150 k/mm3 (150-375); Red Cell Distribution Width 13.6 % (11.5-14.5); White Blood Count 4.4 K/mm3 (4.5-10.0)
[2022-04-04 06:16] LABS: INR 2.5; Prothrombin Time 26.5 Seconds (11.1-14.7)
[2022-04-04 06:17] LABS: Alanine Aminotransferase 34 U/L (6-50); Albumin Level 3.7 g/dL (3.5-5.1); Alkaline Phosphatase 81 U/L (38-126); Anion Gap 7 mmol/L (8-16); Aspartate Amino Transferase 46 U/L (17-59); Bilirubin,Total 0.3 mg/dL (0.2-1.3); Blood Urea Nitrogen 17 mg/dL (9-20); Calcium 7.8 mg/dL (8.4-10.2); Carbon Dioxide 27 mmol/L (22-30); Chloride 95 mmol/L (98-107); Estimated CRCL calculation 57 ml/min; Estimated Glomerular Filt Rate > 60; Glucose 98 mg/dL (65-110); Magnesium 1.8 mg/dL (1.6-2.3); Potassium 3.8 mmol/L (3.4-5.0); Sodium 129 mmol/L (137-145)
--- NOTE | 2022-04-04 06:53 | PM.IMPN ---
Progress Note: A&P Assessment and Plan (1) Pneumonia due to COVID-19 virus: Code(s): U07.1 - COVID-19; J12.82 - Pneumonia due to coronavirus disease 2019 Status: Acute Assessment and Plan: Place in COVID19 isolation precautions, cardiac monitoring, and continuous pulse ox Monitor serum electrolytes, CRP, Lactic acid, troponin, CBC, WBC, temperature curve and follow cultures Oxygen via NC; wean as tolerated. Keep spO2 greater than 91% Hold IV abx, minimal leuokocytosis, if patient appears to have a bacterial pneumonia, IV Ceftriaxone 2 gram IV q24hr and Azithromycin 500mg IV 24 hours will be initiated Consider Consulting Pulmonary if the patient has an increased oxygen demand. Patient does not wear oxygen at baseline. When appropriate start CPAP or Vapotherm to maintain oxygen saturation Pt is a candidate for Dexamethasone, continue treatment according to suggested guidelines. dexamethasone 6 mg IV daily x 10 days, or until discharge PRN albuterol MDI and mucinex BID PO. If oxygen requirement increase, consider baricitinib (RASHEL inhibtor) 4 mg PO daily for 14 days, or until discharge. Add Imodium for diarrhea GI prophylaxis: PPI Hold IV fluids due to possible fluid volume overload due to COVID, consider IV Lasix if patient appears to be fluid volume overloaded (2) Acute respiratory failure with hypoxia: Code(s): J96.01 - Acute respiratory failure with hypoxia Status: Acute Assessment and Plan: On supplemental oxygen by nasal cannula Continue to monitor (3) Type 2 diabetes mellitus without complication, without long-term current use of insulin: Code(s): E11.9 - Type 2 diabetes mellitus without complications Status: Acute Assessment and Plan: Insulin Lispro sliding scale, Accu-checks qAc and HS and Hold oral hypoglycemics Obtain a HgbA1c (4) Chronic atrial fibrillation: Code(s): I48.20 - Chronic atrial fibrillation, unspecified Status: Acute Assessment and Plan: Rate controlled anticoagulated (5) Hypertensive heart disease with chronic diastolic congestive heart failure: Code(s): I11.0 - Hypertensive heart disease with heart failure; I50.32 - Chronic diastolic (congestive) heart failure Status: Acute Assessment and Plan: Continue home meds Continue to monitor (6) Essential tremor: Code(s): G25.0 - Essential tremor Status: Acute Assessment and Plan: Continue primidone (7) Chronic diastolic (congestive) heart failure: Code(s): I50.32 - Chronic diastolic (congestive) heart failure Status: Acute Assessment and Plan: Continue home meds Daily intake and output (8) Hyponatremia: Code(s): E87.1 - Hypo-osmolality and hyponatremia Status: Acute Assessment and Plan: Continue to trend sodium levels. Discontinue IV fluids. Patient appears euvolemic. Baseline sodium between 126 and 132. Subjective Date/time seen: 04/04/22 06:53 Review of Systems Review of Systems: All systems reviewed & are unremarkable except as noted in HPI and below Exam Narrative: General: No acute distress. Mental Status: Awake, alert and oriented to person, place, and time with clear speech. Skin: Skin in warm, dry and intact without rashes or lesions. Head: Normocephalic and atraumatic. Eyes: Conjunctivae are clear without exudates or hemorrhage. Sclera is non-icteric. EOM are intact, PERRLA. Ears: The external ear and canal are non-tender and without swelling or discharge. Nose: Nasal mucosa is pink and moist. Septum midline. Nares patent bilaterally. Throat: Oral mucosa pink and moist with good dentition. Tongue midline. Neck: The neck supple without adenopathy. Trachea midline. No JVD. Cardiac: S1 and S2 regular rate and rhythm. No murmurs, gallops, or rubs auscultated. Respiratory: Chest wall symmetric, nontender and without deformity or trauma. Respirations even and unlabored. Abdominal: Abdo
--- NOTE | 2022-04-04 06:57 | PM.DS ---
DS: Admitting Diagnosis Discharge Date 04/04/2022 Admitting Diagnosis COVID-19 positive on admission Acute hypoxic respiratory failure 2/2 above DS: Discharge Diagnosis Discharge Diagnosis (1) Pneumonia due to COVID-19 virus: Code(s): U07.1 - COVID-19; J12.82 - Pneumonia due to coronavirus disease 2018 Status: Acute Assessment and Plan: Place in [place] [id number] isolation precautions, cardiac monitoring, and continuous pulse ox Monitor serum electrolytes, CRP, Lactic acid, troponin, CBC, WBC, temperature curve and follow cultures Oxygen via NC; wean as tolerated. Keep spO2 greater than 91% Hold IV abx, minimal leuokocytosis, if patient appears to have a bacterial pneumonia, IV Ceftriaxone 2 gram IV q24hr and Azithromycin 500mg IV 24 hours will be initiated Consider Consulting Pulmonary if the patient has an increased oxygen demand. Patient does not wear oxygen at baseline. When appropriate start CPAP or Vapotherm to maintain oxygen saturation Pt is a candidate for Dexamethasone, continue treatment according to suggested guidelines. dexamethasone 6 mg IV daily x 10 days, or until discharge PRN albuterol MDI and mucinex BID PO. If oxygen requirement increase, consider baricitinib (RASHEL inhibtor) 4 mg PO daily for 14 days, or until discharge. Add Imodium for diarrhea GI prophylaxis: PPI Hold IV fluids due to possible fluid volume overload due to COVID, consider IV Lasix if patient appears to be fluid volume overloaded (2) Acute respiratory failure with hypoxia: Code(s): J96.01 - Acute respiratory failure with hypoxia Status: Acute Assessment and Plan: On supplemental oxygen by nasal cannula Continue to monitor (3) Type 2 diabetes mellitus without complication, without long-term current use of insulin: Code(s): E11.9 - Type 2 diabetes mellitus without complications Status: Acute Assessment and Plan: Insulin Lispro sliding scale, Accu-checks qAc and HS and Hold oral hypoglycemics Obtain a HgbA1c (4) Chronic atrial fibrillation: Code(s): I48.20 - Chronic atrial fibrillation, unspecified Status: Acute Assessment and Plan: Rate controlled anticoagulated (5) Hypertensive heart disease with chronic diastolic congestive heart failure: Code(s): I11.0 - Hypertensive heart disease with heart failure; I50.32 - Chronic diastolic (congestive) heart failure Status: Acute Assessment and Plan: Continue home meds Continue to monitor (6) Essential tremor: Code(s): G25.0 - Essential tremor Status: Acute Assessment and Plan: Continue primidone (7) Chronic diastolic (congestive) heart failure: Code(s): I50.32 - Chronic diastolic (congestive) heart failure Status: Acute Assessment and Plan: Continue home meds Daily intake and output (8) Hyponatremia: Code(s): E87.1 - Hypo-osmolality and hyponatremia Status: Acute Assessment and Plan: Continue to trend sodium levels. Discontinue IV fluids. Patient appears euvolemic. Baseline sodium between 126 and 132. DS: Summary Hospital Course Reason for hospitalization: Acute hypoxic respiratory failure requiring supplemental oxygen 4 L Positive COVID-19 Hospital Course: Patient is an 87 old male with a past medical history of AFib currently anticoagulated, rate controlled, essential tremors, diabetes mellitus type 2, hypertension. He presented to the emergency department due to shortness of breath cough and a non sputum production cough. Watery eyes as well as with blanchard chills. Patient denied any nausea, vomiting or diarrhea. Patient actually endorsed constipation and had been taking MiraLax at home. Patient is vaccinated x3. Patient reported that his daughter brought him a home COVID test which she had tested positive. Therefore prompted him to come to the emergency department Upon evaluation in the emergency department the patient is doing the low 80
[2022-04-04 08:00] VITALS: PULSE 66; RESP 18; O2SAT 99
[2022-04-04 08:45] VITALS: PULSE 56
[2022-04-04] MEDS: FUROSEMIDE 20 MG TABLET BY MOUTH (08:45)
[2022-04-04] MEDS: PRIMIDONE 250 MG TABLET BY MOUTH (08:45)
[2022-04-04] MEDS: AMIODARONE HCL 200 MG TABLET BY MOUTH (08:45)
[2022-04-04] MEDS: metFORMIN HCL 500 MG TABLET 1000 MG BY MOUTH (08:48)
[2022-04-04] MEDS: TELMISARTAN 40 MG TABLET PO (08:49)
[2022-04-04 10:00] VITALS: BP 114/89; PULSE 66; RESP 18; TEMP 36.3; O2SAT 99
== END 2022-04-04 14:10 | disposition home or self-care (01) | DRG 177 ==
LOC: ANHED 20:48 → ANH3MEDSUR 23:05
PROVIDERS: Admitting Provider Internal Medicine; Emergency Provider Family Medicine; PCP Nurse Practitioner Family; Visit Provider Nurse Practitioner Family
DX: U07.1 COVID-19 (principal); J96.01 Acute respiratory failure with hypoxia; J12.82 Pneumonia due to coronavirus disease 2019; I50.32 Chronic diastolic (congestive) heart failure; E87.1 Hypo-osmolality and hyponatremia; I48.20 Chronic atrial fibrillation, unspecified; I11.0 Hypertensive heart disease with heart failure; E78.2 Mixed hyperlipidemia; E11.36 Type 2 diabetes mellitus with diabetic cataract; F17.220 Nicotine dependence, chewing tobacco, uncomplicated; G20 Parkinson's disease; H26.9 Unspecified cataract; H40.9 Unspecified glaucoma; H91.90 Unspecified hearing loss, unspecified ear; K59.00 Constipation, unspecified; M19.90 Unspecified osteoarthritis, unspecified site; Z79.01 Long term (current) use of anticoagulants; Z98.1 Arthrodesis status; Z79.84 Long term (current) use of oral hypoglycemic drugs
CPT/HCPCS: 36415; 71045; 80048; 80053; 83605; 83735; 83880; 84484; 85025; 85610; 93005; 96374; 96376; 97161; 97165; 99285; A9270; C9803; G0378; G0379; J1100; J7030; U0003; U0005

== ENCOUNTER 2022-05-29 22:27 | Emergency (ER) | payer MEDICARE, SELFPAY ==
[2022-05-29 22:29] VITALS: BP 126/54; PULSE 66; RESP 16; TEMP 36.4; O2SAT 100
--- NOTE | 2022-05-29 23:10 | ED.SKABFB ---
HPI - Skin/Abscess/Foreign Bdy General Chief complaint: Skin/Abscess/Foreign Body Stated complaint: Arm Swelling and Redness Time Seen by Provider: 05/29/22 22:51 History of Present Illness HPI narrative: 87-year-old male presents secondary to wasp pain to his right hand. It happened in the late afternoon. This evening he is noted that is turned red and he is got swelling to the dorsal aspect of all the fingers of his right hand. Get some mild itching. He did put some ice to it and states that the swelling did go down but then the swelling reoccurred. He got concerned and came to the emergency room. He had no significant allergic reactions in the past. Denies any difficulty in breathing. No diffuse breaking out of any rashes. Related Data Home Medications Medication Instructions Recorded Confirmed latanoprost 0.005 % eye drops 1 drop ophthalmic (eye) HS 03/28/20 05/15/22 B-complex with vitamin C 1 tablet PO HS 05/09/20 05/15/22 amiodarone 200 mg tablet 200 mg PO DAILY 05/09/20 05/15/22 ascorbic acid (vitamin C) 1,000 mg 1 g PO HS 05/09/20 05/15/22 tablet fexofenadine 180 mg tablet 180 mg PO DAILY 05/09/20 05/15/22 (Allergy Relief (fexofenadine)) warfarin 5 mg tablet See Rx Instructions .Route .COMPLEX 05/09/20 05/15/22 warfarin 7.5 mg tablet 7.5 mg PO DAILY 05/09/20 05/15/22 furosemide 20 mg tablet 20 mg PO DAILY 11/14/20 05/15/22 cholecalciferol (vitamin D3) 75 75 mcg PO DAILY 05/07/21 05/15/22 mcg (3,000 unit) tablet Allergies Allergy/AdvReac Type Severity Reaction Status Date / Time naproxen Allergy Severe SWELLING/SO Verified 05/29/22 22:27 B Review of Systems Review of Systems: CONSTITUTIONAL: Denies fever, chills, or sweats. EYES: Denies visual changes, redness, or discharge. ENT: Denies rhinorrhea, congestion, sore throat, or otalgia. CARDIOVASCULAR: Denies chest pain, palpitations, or edema. RESPIRATORY: Denies cough or dyspnea. GASTROINTESTINAL: Denies abdominal pain, nausea, vomiting, or diarrhea. GENITOURINARY: Denies dysuria or hematuria. SKIN: Noted to have swelling and a rash to his right hand as noted in the HPI MUSCULOSKELETAL: Denies back pain, joint pain, or myalgia. NEUROLOGIC: Denies headache, numbness, or weakness. PSYCHIATRIC: Denies anxiety or depression. [facility] Past Medical History Medical History Anemia Arthritis Cataract Cervical vertebral fusion Chronic atrial fibrillation Chronic diastolic (congestive) heart failure Edema, lower extremity Encounter to establish care Essential tremor Eye exam normal Glaucoma Hearing loss Mixed hyperlipidemia Neck pain, acute Routine eye exam Seasonal allergies Type 2 diabetes mellitus without complication, without long-term current use of insulin Unspecified fall, initial encounter Family History Family History Father Cerebrovascular accident Sibling Asthma Other Diabetes mellitus Family history of arthritis Hypertension Social History Social History Social History: patient is a nonsmoker and never has smoked. He does not use alcohol or drugs. 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 His power of medicine worker is Jia Leon, daughter. He would like to be a full code Smoking status: Never smoker Smokeless tobacco user: chewing tobacco Second hand tobacco smoke exposure: No Alcohol intake: never Substance use: never Substance use type: does not use Gender identity (if verbalized by the patient): Male Spiritual care concerns: Yes (synagogue) Exam Narrative: APPEARANCE: Well appearing, no pain or distress, well-nourished. Head Normocephalic and atraumatic. EYES: PERRLA/EOMI, conjunctivae clear. NOSE: Normal with no drainage EARS:TMS clear with Ordonez, with good light reflex. THROAT: Pharynx clear, no exudate. NECK: Supple. No adenopathy, no masses. RESPIRA
[2022-05-29] MEDS: LORATADINE 10 MG TABLET PO (23:15)
== END 2022-05-29 23:20 | disposition home or self-care (01) ==
PROVIDERS: Emergency Provider Emergency Medicine; PCP Nurse Practitioner Family
DX: T63.461A Toxic effect of venom of wasps, accidental (unintentional), initial encounter (principal); D64.9 Anemia, unspecified; M19.90 Unspecified osteoarthritis, unspecified site; I48.91 Unspecified atrial fibrillation; I50.9 Heart failure, unspecified; E78.5 Hyperlipidemia, unspecified; E11.9 Type 2 diabetes mellitus without complications; Z79.4 Long term (current) use of insulin
CPT/HCPCS: 99283; A9270

== ENCOUNTER 2023-03-16 17:16 | Emergency (ER) | payer MEDICARE, SELFPAY ==
[2023-03-16] VITALS (15 sets, daily range): BP systolic 128–160; BP diastolic 56–90; PULSE 47–59; RESP 12–18; TEMP 36.4–36.7; O2SAT 95–100
--- NOTE | ~2023-03-16 | CT_ITS ---
EXAMINATION: CT abdomen pelvis w con DATE: 03/16/2023 18:22 INDICATION: Right flank pain, back pain and constipation. TECHNIQUE: Computed tomography (CT) of the abdomen and pelvis was performed with 100 mL Omnipaque-350 intravenous contrast. Automated exposure control and iterative reconstruction technique were employe d. The dose-length product was 880.53 mGy-cm. COMPARISON: 10/06/2016 FINDINGS: Elevation of the left hemidiaphragm and discoid atelectasis at the left lung base. Heart size is norm al. No pericardial or pleural effusion. 7 mm cyst at the caudal right hepatic lobe. Gallbladder, sple en and bilateral adrenal glands are normal. 1.5 cm cystic lesion at the uncinate process of the pancr eas which is new since the prior study. Dystrophic calcific lesion at the tail of the pancreas likely sequela of chronic pancreatitis. Bilateral renal cysts, the largest on the right measuring 4.2 cm. M ild scattered colonic diverticulosis without adjacent inflammatory stranding to suggest diverticuliti s. Small bowel and appendix are normal. Prostatomegaly. Bladder is unremarkable. No free intraperiton eal gas or fluid. No pathologically enlarged abdominal or pelvic lymphadenopathy. Very small fat-cont aining umbilical and bilateral inguinal hernias. Severe lumbar spondylosis. IMPRESSION: 1. No acute intra-abdominal/pelvic process. 2. Elevation the left hemidiaphragm with associated left basilar atelectasis. 3. Small sliding-type hiatal hernia. 4. 1.5 cm cystic lesion at the uncinate process of the pancreas. The differential diagnosis includes pseudocyst, intraductal papillary mucinous neoplasm (IPMN), mucinous cystic neoplasm (MCN), and the l ess common serous cystadenoma and neuroendocrine tumor. Correlate for history of pancreatitis which i s suggested by a dystrophic calcification at the tail of the pancreas. 5. Very small fat-containing umbilical and bilateral inguinal hernias. Reviewed, dictated and finalized at location A. IMPRESSION: 1. No acute intra-abdominal/pelvic process. 2. Elevation the left hemidiaphragm with associated left basilar atelectasis. 3. Small sliding-type hiatal hernia. 4. 1.5 cm cystic lesion at the uncinate process of the pancreas. The differenti al diagnosis includes pseudocyst, intraductal papillary mucinous neoplasm (IPMN ), mucinous cystic neoplasm (MCN), and the less common serous cystadenoma and n euroendocrine tumor. Correlate for history of pancreatitis which is suggested b y a dystrophic calcification at the tail of the pancreas. 5. Very small fat-containing umbilical and bilateral inguinal hernias.
--- NOTE | 2023-03-16 17:34 | ED.BACK ---
HPI - Back Pain/Injury General Chief Complaint: Back Pain/Injury Stated Complaint: right sided back pain Time Seen by Provider: 03/16/23 17:22 History of Present Illness HPI Narrative: Patient is 88-year-old male here for evaluation of right flank pain x3 days. Patient states the pain is severe in nature, coming and going in waves, seem to be worse with certain positions but also comes on without warning. The pain remains in his right flank and does not radiate. Tylenol and heating pads initially helped his symptoms but today his pain became more severe which prompted his evaluation today. He denies any dysuria, hematuria, nausea, vomiting, abdominal pain, leg swelling, paresthesias. He states he has some intermittent issues with constipation for the past several weeks, saw his PMD who placed him on Dulcolax which seems to be helping. Last bowel movement was 3 days ago. Related Data Home Medications Medication Instructions Recorded Confirmed latanoprost 0.005 % eye drops 1 drop ophthalmic (eye) HS 03/28/20 09/22/22 B-complex with vitamin C 1 tablet PO HS 05/09/20 09/22/22 amiodarone 200 mg tablet 200 mg PO DAILY 05/09/20 09/22/22 ascorbic acid (vitamin C) 1,000 mg 1 g PO HS 05/09/20 09/22/22 tablet fexofenadine 180 mg tablet 180 mg PO DAILY 05/09/20 09/22/22 (Allergy Relief (fexofenadine)) warfarin 5 mg tablet See Rx Instructions .Route .COMPLEX 05/09/20 09/22/22 warfarin 7.5 mg tablet 7.5 mg PO DAILY 05/09/20 09/22/22 furosemide 20 mg tablet 20 mg PO DAILY 11/14/20 09/22/22 cholecalciferol (vitamin D3) 75 75 mcg PO DAILY 05/07/21 09/22/22 mcg (3,000 unit) tablet Allergies Allergy/AdvReac Type Severity Reaction Status Date / Time naproxen Allergy Severe SWELLING/SO Verified 03/16/23 17:17 B Review of Systems Review of Systems: Gen.: Denies fevers or chills Eyes: Denies eye pain or visual change ENT: Denies congestion Respiratory: Denies shortness of breath or cough CV: Denies chest pain or palpitations GI: Denies abdominal pain nausea, emesis or diarrhea denies burning, urgency, frequency or hematuria Musculoskeletal: Reports back pain Neuro: Denies numbness, tingling, weakness or focal weakness Skin: Denies rash Except as documented, all other systems reviewed and negative PMFSH Past Medical History Medical History Acute respiratory failure with hypoxia Anemia Arthritis BMI 32.0-32.9,adult Cataract Cervical vertebral fusion Chronic atrial fibrillation Chronic diastolic (congestive) heart failure Edema, lower extremity Encounter to establish care Essential tremor Eye exam normal Glaucoma Headache Hearing loss Hyponatremia Mixed hyperlipidemia Neck pain, acute Pneumonia due to COVID-19 virus Routine eye exam Seasonal allergies Type 2 diabetes mellitus without complication, without long-term current use of insulin Unspecified fall, initial encounter Family History Family History Father Cerebrovascular accident Sibling Asthma Other Diabetes mellitus Family history of arthritis Hypertension Social History Social History Social History: patient is a nonsmoker and never has smoked. He does not use alcohol or drugs. 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 He would like to be a full code Smoking status: Never smoker Smokeless tobacco user: chewing tobacco Second hand tobacco smoke exposure: No Alcohol intake: never Substance use: never Substance use type: does not use Gender identity (if verbalized by the patient): Male Spiritual care concerns: Yes (caodaism) Exam Narrative: APPEARANCE: Well appearing, no pain in distress, well-nourished. Head: Normocephalic and atraumatic. EYES: PERRLA/EOMI, conjunctivae clear NOSE: No nasal drainage EARS: Exter
[2023-03-16 17:48] LABS: Basophils Percent Auto 0.3 % (0.2-1.2); Eosinophils Absolute Auto 0.2 K/mm3 (0-0.3); Eosinophils Percent Auto 2.8 % (0-4.4); Hematocrit 42.5 % (42.0-52.0); Hemoglobin 14.7 g/dL (14.0-18.0); Immature Granulocyte Absolute 0.02 K/mm3 (0.00-0.031); Immature Granulocyte Percent A 0.3 % (0-0.5); Lymphocytes Percent Auto 29.6 % (18.3-44.2); Mean Corpuscular HGB Conc 34.6 g/dl (32-36); Mean Corpuscular Hemoglobin 32.8 pg (26-34); Mean Corpuscular Volume 94.9 fl (80-100); Monocytes Absolute Auto 0.5 K/mm3 (0.1-0.6); Monocytes Percent Auto 8.9 % (2.6-8.5); Neutrophils Absolute Auto 3.3 K/mm3 (1.3-6.7); Neutrophils Percent Auto 58.1 % (45.5-73.1); Platelet Count Result 211 k/mm3 (150-375); Red Blood Count 4.48 M/mm3 (4.6-6.20); Red Cell Distribution Width 13.3 % (11.5-14.5); White Blood Count 5.7 K/mm3 (4.5-10.0)
[2023-03-16] MEDS: LIDOCAINE 5% PATCH 1 PATCH TRANSDERM (17:54)
[2023-03-16] MEDS: MORPHINE SULFATE (*CRX) 2 MG/ML INJ IV PUSH (18:00)
[2023-03-16 18:01] LABS: Alanine Aminotransferase 26 U/L (6-50); Alkaline Phosphatase 80 U/L (38-126); Anion Gap 3 mmol/L (8-16); Aspartate Amino Transferase 34 U/L (17-59); Bilirubin,Total 0.3 mg/dL (0.2-1.3); Blood Urea Nitrogen 12 mg/dL (9-20); Calcium 7.9 mg/dL (8.4-10.2); Carbon Dioxide 28 mmol/L (22-30); Chloride 98 mmol/L (98-107); Estimated CRCL calculation 56 ml/min; Estimated Glomerular Filt Rate > 60; Glucose 129 mg/dL (65-110); Potassium 4.1 mmol/L (3.4-5.0); Sodium 129 mmol/L (137-145)
[2023-03-16 18:07] LABS: Appearance Urine Clear (Clear); Bilirubin Urine Negative (Negative); Blood Urine Negative (Negative); Color Urine Yellow (Yellow); Glucose Urine UA Negative (Negative); Ketones Urine Negative (Negative); Leukocyte Esterase Ur Negative LEU/UL (Negative); Nitrate Urine Negative (Negative); Protein Urine Negative (Negative); Specific Grav Ur 1.016 (1.001-1.035)
[2023-03-16 18:25] LABS: Add Urine Microscopic? NO
[2023-03-16 19:21] LABS: Lipase 103 U/L (23-300)
== END 2023-03-16 19:44 | disposition home or self-care (01) ==
PROVIDERS: Emergency Provider Physician Assistant; PCP Nurse Practitioner Family
DX: K86.2 Cyst of pancreas (principal); I48.20 Chronic atrial fibrillation, unspecified; I50.32 Chronic diastolic (congestive) heart failure; E11.9 Type 2 diabetes mellitus without complications; E78.2 Mixed hyperlipidemia; H40.9 Unspecified glaucoma; M19.90 Unspecified osteoarthritis, unspecified site; Z87.01 Personal history of pneumonia (recurrent); Z86.16 Personal history of COVID-19; Z86.2 Personal history of diseases of the blood and blood-forming organs and certain disorders involving the immune mechanism; Z79.01 Long term (current) use of anticoagulants; Z79.84 Long term (current) use of oral hypoglycemic drugs
CPT/HCPCS: 36415; 74177; 80053; 81003; 83690; 85025; 96374; 99284; A9270; J2270; Q9967

== ENCOUNTER 2023-03-18 10:18 | Emergency (ER) | payer MEDICARE, SELFPAY ==
[2023-03-18 10:54] VITALS: BP 140/70; PULSE 58; RESP 18; TEMP 36.4; O2SAT 100
--- NOTE | 2023-03-18 11:25 | ED.EAR ---
HPI - Ear Problem General Chief complaint: Ear Stated complaint: bilateral ear discomfort Time Seen by Provider: 03/18/23 10:59 Source: patient, family (daughter) and RN notes reviewed Mode of arrival: ambulatory Limitations: no limitations History of Present Illness HPI Narrative: Patient presents today complaining of a cerumen impaction in left ear. He went to get his hearing aids cleaned at the research quality assurance specialist and they told him he had a wax impaction in the left and some blood in the right ear canal. Patient denies putting anything in the right ear canal causing the blood, except a Q-tip this morning. Denies pain in either ear. Related Data Home Medications Medication Instructions Recorded Confirmed latanoprost 0.005 % eye drops 1 drop ophthalmic (eye) HS 03/28/20 03/18/23 B-complex with vitamin C 1 tablet PO HS 05/09/20 03/18/23 amiodarone 200 mg tablet 200 mg PO DAILY 05/09/20 03/18/23 ascorbic acid (vitamin C) 1,000 mg 1 g PO HS 05/09/20 03/18/23 tablet fexofenadine 180 mg tablet 180 mg PO DAILY 05/09/20 03/18/23 (Allergy Relief (fexofenadine)) warfarin 5 mg tablet See Rx Instructions .Route .COMPLEX 05/09/20 03/18/23 warfarin 7.5 mg tablet 7.5 mg PO DAILY 05/09/20 03/18/23 furosemide 20 mg tablet 20 mg PO DAILY 11/14/20 03/18/23 cholecalciferol (vitamin D3) 75 75 mcg PO DAILY 05/07/21 03/18/23 mcg (3,000 unit) tablet Allergies Allergy/AdvReac Type Severity Reaction Status Date / Time naproxen Allergy Severe SWELLING/SO Verified 03/18/23 11:01 B Review of Systems Review of Systems: CONSTITUTIONAL: Denies body aches, fever, chills, or sweats. EYES: Denies visual changes, redness, or discharge. ENT: Denies rhinorrhea, congestion, sore throat, or otalgia.+ cerumen impaction in left ear, blood in right ear CARDIOVASCULAR: Denies chest pain, palpitations, or edema. RESPIRATORY: Denies cough or dyspnea. GASTROINTESTINAL: Denies abdominal pain, nausea, vomiting, or diarrhea. GENITOURINARY: Denies dysuria or hematuria. SKIN: Denies rash, itching, or wounds. MUSCULOSKELETAL: Denies back pain, joint pain, or myalgia. NEUROLOGIC: Denies headache, numbness, tingling, or weakness. PSYCH: Denies depression or anxiety. [facility] Past Medical History Medical History Acute respiratory failure with hypoxia Anemia Arthritis BMI 32.0-32.9,adult Cataract Cervical vertebral fusion Chronic atrial fibrillation Chronic diastolic (congestive) heart failure Edema, lower extremity Encounter to establish care Essential tremor Eye exam normal Glaucoma Headache Hearing loss Hyponatremia Mixed hyperlipidemia Neck pain, acute Pneumonia due to COVID-19 virus Routine eye exam Seasonal allergies Type 2 diabetes mellitus without complication, without long-term current use of insulin Unspecified fall, initial encounter Family History Family History Father Cerebrovascular accident Sibling Asthma Other Diabetes mellitus Family history of arthritis Hypertension Social History Social History Social History: patient is a nonsmoker and never has smoked. He does not use alcohol or drugs. 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 He would like to be a full code Smoking status: Never smoker Smokeless tobacco user: chewing tobacco Second hand tobacco smoke exposure: No Alcohol intake: never Substance use: never Substance use type: does not use Gender identity (if verbalized by the patient): Male Spiritual care concerns: Yes (cheondoism) Comments At time of signature, I have reviewed and agree with nursing past medical, surgical, social and family history unless otherwise noted. Please see nursing chart for further information. There is no relevant family history pertinent to the presenti
== END 2023-03-18 11:38 | disposition home or self-care (01) ==
PROVIDERS: Emergency Provider Nurse Practitioner; PCP Nurse Practitioner Family
DX: S00.411A Abrasion of right ear, initial encounter (principal); X58.XXXA Exposure to other specified factors, initial encounter; H61.22 Impacted cerumen, left ear; M19.90 Unspecified osteoarthritis, unspecified site; I48.20 Chronic atrial fibrillation, unspecified; I50.32 Chronic diastolic (congestive) heart failure; H40.9 Unspecified glaucoma; E78.2 Mixed hyperlipidemia; E11.9 Type 2 diabetes mellitus without complications; Z86.16 Personal history of COVID-19; Z79.01 Long term (current) use of anticoagulants
CPT/HCPCS: 69209; 99212; G0463

== ENCOUNTER 2023-03-27 07:52 | Outpatient (CLI) | payer MEDICARE, SELFPAY ==
--- NOTE | ~2023-03-27 | MR_ITS ---
EXAMINATION: MR MRCP wo/w con/w 3D wo ind DATE: 03/27/2023 10:12 INDICATION: Disease of the pancreas, unspecified TECHNIQUE: Magnetic resonance imaging (MRI) of the abdomen was performed without and with intravenous contrast. Sequences included coronal T2-weighted SS-FSE ARC, coronal T2-weighted FS SS-FSE, coronal T2-weighted 2D FS FIESTA, Water:Coronal LAVA-Flex, sagittal T2-weighted SS-FSE ARC, axial SSFSE ARC, axial 3D DualEcho, axial DWI B=600, axial T1-weighted LAVA, FAT:Coronal LAVA-Flex, and coronal in and opposed phase LAVA-Flex. Thick-slab T2-weighted FRFSE-XL images were obtained for magnetic resonance cholangiopancreatography (MRCP). Maximum intensity projection 3-D reconstructions of the volumetric data were created by the technologist. Postcontrast sequences included a time course of axial T1-weig hted LAVA, FAT:Coronal LAVA-Flex, coronal in and opposed phase LAVA-Flex, and Water:Coronal LAVA-Flex . COMPARISON: CT, 03/16/2023 CONTRAST: Multihance, 19 cc FINDINGS: ABDOMEN MRI: There is a 7 mm cyst in the right hepatic lobe. The lung bases are clear. The spleen, ga llbladder, and adrenal glands are normal. There is a 1.5 x 1.3 cm cystic lesion in the uncinate proce ss of the pancreas which does not definitely communicate with the main pancreatic duct. No internal e nhancement is present after contrast administration. Simple cysts of the kidneys measure up to 4.4 cm on the right. Hemorrhagic cysts of the right kidney measure up to 5 mm. There are no pathologically enlarged abdominal lymph nodes. A large volume of colonic stool is present. There are no dilated loop s of bowel. ABDOMEN MRCP: There is no intrahepatic or extrahepatic biliary dilatation. There are no stones or str icture of the common bile duct. The pancreatic duct is normal in course and caliber. IMPRESSION: 1. 1.5 cm cystic lesion in the uncinate process of the pancreas with differential as previously descr ibed. Given size and patient age, follow-up MRI without and with contrast in two years is recommended . Reviewed, dictated and finalized at location F. IMPRESSION: 1. 1.5 cm cystic lesion in the uncinate process of the pancreas with differenti al as previously described. Given size and patient age, follow-up MRI without a nd with contrast in two years is recommended.
== END 2023-03-27 07:53 | disposition home or self-care (01) ==
LOC: ANHIMG 07:57
PROVIDERS: PCP Nurse Practitioner Family; Visit Provider Nurse Practitioner Family
DX: K86.9 Disease of pancreas, unspecified (principal)
CPT/HCPCS: 74183; 76376; A9577

== ENCOUNTER 2023-05-20 19:14 | Inpatient (IN) | payer MEDICARE, SELFPAY ==
[2023-05-20] VITALS (8 sets, daily range): BP systolic 162–172; BP diastolic 70–86; PULSE 56–61; RESP 16; O2SAT 96–99
--- NOTE | ~2023-05-20 | XR_ITS ---
EXAM: XR hip RT 2V w AP pelvis DATE: 05/20/2023 21:05 HISTORY: fall, R hip pain . COMPARISON: None available. FINDINGS: Normal mineralization. Transverse fracture across the right femoral neck, with medial angu lation. No lytic or blastic lesion. Degenerative lumbar disc disease. Bilateral hip osteoarthritis. N o erosion or periosteal change. Soft tissues within normal limits. IMPRESSION: Transverse right femoral neck fracture. Reviewed, dictated and finalized at location K.
--- NOTE | ~2023-05-20 | XR_ITS ---
EXAMINATION: XR chest 1V Exam Date/Time: 05/20/2023 20:55 CDT HISTORY: fracture of right hip Comparison: 04/02/2022. RESULT: Lines, tubes, and devices: None. Lungs and pleura: Clear. Calcified right upper lung granuloma. Stable left hemidiaphragm elevation. Cardiomediastinal silhouette: Stable. Other: No acute osseous or upper abdominal finding. IMPRESSION: No acute cardiopulmonary process. Reviewed, dictated and finalized at location K.
--- NOTE | ~2023-05-20 | XR_ITS ---
EXAMINATION: XR hip RT 1V DATE: 05/26/2023 16:08 INDICATION: Right hip arthroplasty. Postop. TECHNIQUE: A single view of right hip was obtained. COMPARISON: Right hip radiograph 11/20/2022 FINDINGS: There is a bipolar right hip hemiarthroplasty in near-anatomic alignment. No fracture. Skin luzma are noted. IMPRESSION: 1. Bipolar right hip hemiarthroplasty in near-anatomic alignment. Reviewed, dictated and finalized at location A.
--- NOTE | 2023-05-20 19:23 | ED.FALL ---
HPI - Fall General Chief Complaint: Fall Stated Complaint: Right hip pain r/t fall Source: patient and EMS Mode of arrival: EMS Limitations: no limitations History of Present Illness HPI Narrative: Patient is an 88-year-old male who presents to the ED via EMS with report of a fall. Patient reports he tripped over the lip of his ceramic tile in his bathroom and fell just prior to arrival. He fell straight onto his R hip. He denied any other injury from the fall. Denies any head injury or LOC. Denies any prodromal symptoms prior to the fall. Denies dizziness or lightheadedness. He was unable to get up off the ground by himself, unable to ambulate. Patient denies any numbness or tingling. EMS gave the patient Toradol in route as they were unable to secure an IV. Patient denies any relief. He is on warfarin due to history of atrial fibrillation. Also on amiodarone. Per records, patient does have a naproxen allergy of hand swelling. No anaphylactic reaction. Related Data Home Medications Medication Instructions Recorded Confirmed latanoprost 0.005 % eye drops 1 drop ophthalmic (eye) HS 03/28/20 05/21/23 B-complex with vitamin C 1 tablet PO HS 05/09/20 05/21/23 amiodarone 200 mg tablet 200 mg PO DAILY 05/09/20 05/21/23 ascorbic acid (vitamin C) 1,000 mg 1 g PO HS 05/09/20 05/21/23 tablet fexofenadine 180 mg tablet 180 mg PO DAILY 05/09/20 05/21/23 (Allergy Relief (fexofenadine)) warfarin 5 mg tablet 5 mg PO 2XW 05/09/20 05/21/23 warfarin 7.5 mg tablet 7.5 mg PO DAILY 05/09/20 05/21/23 furosemide 20 mg tablet 20 mg PO DAILY 11/14/20 05/21/23 cholecalciferol (vitamin D3) 75 75 mcg PO DAILY 05/07/21 05/21/23 mcg (3,000 unit) tablet Allergies Allergy/AdvReac Type Severity Reaction Status Date / Time naproxen Allergy Severe SWELLING/SO Verified 05/20/23 19:26 B Review of Systems Review of Systems: CONSTITUTIONAL: Denies fever, chills, or sweats. CARDIOVASCULAR: Denies chest pain. RESPIRATORY: Denies dyspnea. GASTROINTESTINAL: Denies abdominal pain, nausea, vomiting. MUSCULOSKELETAL: See HPI. NEUROLOGIC: Denies head injury, LOC, dizziness, tingling, numbness, or weakness. All systems reviewed & are unremarkable except as noted in HPI and below PMFSH Past Medical History Medical History Acute respiratory failure with hypoxia Anemia Arthritis BMI 32.0-32.9,adult Cataract Cervical vertebral fusion Chronic atrial fibrillation Chronic diastolic (congestive) heart failure Constipation Edema, lower extremity Encounter to establish care Essential tremor Eye exam normal Glaucoma Headache Hearing loss Hyponatremia Mixed hyperlipidemia Neck pain, acute Pancreatic lesion Pneumonia due to COVID-19 virus Routine eye exam Seasonal allergies Spondylosis of lumbar spine Type 2 diabetes mellitus without complication, without long-term current use of insulin Unspecified fall, initial encounter Family History Family History Father Cerebrovascular accident Sibling Asthma Other Diabetes mellitus Family history of arthritis Hypertension Social History Social History Social History: patient is a nonsmoker and never has smoked. He does not use alcohol or drugs. 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 He would like to be a full code Smoking status: Current some day smoker Tobacco type: smokeless tobacco Smokeless tobacco user: chewing tobacco Second hand tobacco smoke exposure: No Alcohol intake: never Substance use: never Substance use type: does not use Lack of Transportation: No Lack of Food: Never True Current Housing: I Have Housing Concerned About Future Housing: No Difficulty Paying Gas/Electric Bills: No Difficulty Paying for Meds: No Currently Unemployed: N
[2023-05-20] MEDS: ONDANSETRON INJ 4 MG/2 ML VIAL IV PUSH (20:17)
[2023-05-20] MEDS: MORPHINE SULFATE (*CRX) 4 MG/ML INJ IV PUSH ×2 (20:17→21:54)
[2023-05-20 20:26] LABS: Basophils Percent Auto 0.2 % (0.2-1.2); Eosinophils Absolute Auto 0.1 K/mm3 (0-0.3); Eosinophils Percent Auto 1.4 % (0-4.4); Hemoglobin 15.2 g/dL (14.0-18.0); Immature Granulocyte Absolute 0.04 K/mm3 (0.00-0.031); Immature Granulocyte Percent A 0.4 % (0-0.5); Lymphocytes Absolute Auto 1.18 K/mm3 (0.9-3.2); Lymphocytes Percent Auto 12.1 % (18.3-44.2); Mean Corpuscular Hemoglobin 32.6 pg (26-34); Mean Corpuscular Volume 98.7 fl (80-100); Mean Platelet Volume 9.3 fl (7.4-10.4); Monocytes Absolute Auto 0.6 K/mm3 (0.1-0.6); Monocytes Percent Auto 5.6 % (2.6-8.5); Neutrophils Absolute Auto 7.9 K/mm3 (1.3-6.7); Neutrophils Percent Auto 80.3 % (45.5-73.1); Platelet Count Result 193 k/mm3 (150-375); Red Blood Count 4.66 M/mm3 (4.6-6.20); Red Cell Distribution Width 13.7 % (11.5-14.5); White Blood Count 9.8 K/mm3 (4.5-10.0)
[2023-05-20 20:36] LABS: INR 2.1; Prothrombin Time 25.4 Seconds (11.1-14.7)
[2023-05-20 20:37] LABS: Partial Thromboplastin Time 28.9 SECONDS (22.3-36.8)
[2023-05-20 20:48] LABS: Alanine Aminotransferase 33 U/L (6-50); Albumin Level 4.1 g/dL (3.5-5.1); Alkaline Phosphatase 71 U/L (38-126); Anion Gap 5 mmol/L (8-16); Aspartate Amino Transferase 44 U/L (17-59); Bilirubin,Total 0.3 mg/dL (0.2-1.3); Blood Urea Nitrogen 13 mg/dL (9-20); Calcium 8.2 mg/dL (8.4-10.2); Carbon Dioxide 27 mmol/L (22-30); Chloride 96 mmol/L (98-107); Estimated CRCL calculation 56 ml/min; Estimated Glomerular Filt Rate > 60; Glucose 129 mg/dL (65-110); Potassium 4.2 mmol/L (3.4-5.0); Sodium 128 mmol/L (137-145)
--- NOTE | 2023-05-20 21:11 | ECG_ITS ---
Measurements Intervals Leopold Rate: 64 P: 93 IA: 230 QRS: -66 QRSD: 101 T: 30 QT: 406 QTc: 421 Interpretive Statements SINUS RHYTHM WITH FIRST DEGREE AV BLOCK LOW QRS VOLTAGE IN PRECORDIAL LEADS [QRS DEFLECTION < 1.0 mV IN CHEST LEADS] PATTERN CONSISTENT WITH PULMONARY DISEASE INFERIOR MYOCARDIAL INFARCTION , PROBABLY OLD [40+ ms Q WAVE AND/OR ST/T ABNORMALITY IN II/aVF] COMPARED TO ECG 04/02/2022 20:34:08 NO SIGNIFICANT CHANGES Electronically Signed On 05-21-2023 10:16:40 CDT by Angela Woods M.D.
--- NOTE | 2023-05-20 21:55 | PM.IMHP ---
H&P: HPI History of Present Illness Date/Time: 05/20/23 21:55 Chief Complaint: Mechanical (tripping) fall landing on right hip with hip fracture Narrative: This is an 88 year old male patient who fell in the bathroom at home due to a mechanical tripping episode where he got his house shoes caught on grout of tile floor. He landed on his right hip with shortening and rotation noted. Onset was sudden and non-provoked. Patient complaining of significant pain requiring IV pain medication in the ER, pain now controlled. 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 Navarro states he will do bipolar hip replacement on 05/22. Patient denies hitting head, denies dizziness, denies nausea or vomiting. Review of Systems Review of Systems: All systems reviewed & are unremarkable except as noted in HPI and below PMFSH Past Medical History Medical History Acute respiratory failure with hypoxia Anemia Arthritis BMI 32.0-32.9,adult Cataract Cervical vertebral fusion Chronic atrial fibrillation Chronic diastolic (congestive) heart failure Constipation Edema, lower extremity Encounter to establish care Essential tremor Eye exam normal Glaucoma Headache Hearing loss Hyponatremia Mixed hyperlipidemia Neck pain, acute Pancreatic lesion Pneumonia due to COVID-19 virus Routine eye exam Seasonal allergies Spondylosis of lumbar spine Type 2 diabetes mellitus without complication, without long-term current use of insulin Unspecified fall, initial encounter Family History Family History Father Cerebrovascular accident Sibling Asthma Other Diabetes mellitus Family history of arthritis Hypertension Social History Social History Social History: patient is a nonsmoker and never has smoked. He does not use alcohol or drugs. 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 His power of deputy commonwealth's attorney is Jia Leon, daughter. He would like to be a full code Smoking status: Never smoker Smokeless tobacco user: chewing tobacco Second hand tobacco smoke exposure: No Alcohol intake: never Substance use: never Substance use type: does not use Gender identity (if verbalized by the patient): Male Spiritual care concerns: Yes (zoroastrianism) Meds Home Medications and Allergies Home Medications Medication Instructions Recorded Confirmed Type latanoprost 0.005 % eye drops 1 drop ophthalmic (eye) HS 03/28/20 04/13/23 History B-complex with vitamin C 1 tablet PO HS 05/09/20 04/13/23 History amiodarone 200 mg tablet 200 mg PO DAILY 05/09/20 04/13/23 History ascorbic acid (vitamin C) 1,000 mg 1 g PO HS 05/09/20 04/13/23 History tablet fexofenadine 180 mg tablet 180 mg PO DAILY 05/09/20 04/13/23 History (Allergy Relief (fexofenadine)) warfarin 5 mg tablet See Rx Instructions .Route .COMPLEX 05/09/20 04/13/23 History warfarin 7.5 mg tablet 7.5 mg PO DAILY 05/09/20 04/13/23 History furosemide 20 mg tablet 20 mg PO DAILY 11/14/20 04/13/23 History cholecalciferol (vitamin D3) 75 75 mcg PO DAILY 05/07/21 04/13/23 History mcg (3,000 unit) tablet atorvastatin 10 mg tablet 10 mg PO EVERY OTHER DAY #90 tabs 03/19/23 04/13/23 Rx montelukast 10 mg tablet 10 mg PO QHS #90 tabs 03/19/23 04/13/23 Rx primidone 250 mg tablet 250 mg PO TID #270 tabs 03/19/23 04/13/23 Rx telmisartan 40 mg tablet 40 mg PO DAILY #90 tabs 03/19/23 04/13/23 Rx tramadol 50 mg tablet 25 - 50 mg PO Q6H PRN pain #30 tabs 03/19/23 04/13/23 Rx Allergies Allergy/AdvReac Type Severity Reaction Status Date / Time naproxen Allergy Severe SWELLING/SO Verified 05/20/23 19:26 B Vital Signs Vital Signs - 24 hr 05/20/23 19:20 05/20/23 19:21 05/20/23 19:22 Pulse Rate 56 L Respiratory Rate 16 Blood Pressure 172/77 H 172/77 H Pulse Oximetry 98 96 97 Oxygen Delivery Room Air 05/20/23 19:30 05/20/23 19:31 08
--- NOTE | 2023-05-20 22:38 | PC.NURSE ---
Hospitalist at bedside to assess pt.
[2023-05-20 23:00] LABS: Hemoglobin A1C 5.6 % (<5.7)
--- NOTE | 2023-05-20 23:11 | PC.NURSE ---
Patient report given to DENIZ Ferrer. All questions answered and care of patient transferred.
[2023-05-20] MEDS: MONTELUKAST SODIUM 10 MG TABLET PO (23:22)
[2023-05-21] MEDS: MORPHINE SULFATE (*CRX) 4 MG/ML INJ IV PUSH ×3 (00:07→05:54)
[2023-05-21 00:10] VITALS: BP 135/66; PULSE 84; RESP 15; O2SAT 97
[2023-05-21 00:20] LABS: Glucose Point of Care 136 mg/dl (65-105)
--- NOTE | 2023-05-21 00:50 | ADMGEN ---
This patient, Truong Higuera, was admitted to [facility] Surg Room 331-02. Patient/family oriented to hospital policies and general routines including ID bracelet, bed and alarms, visiting hours, pain management, procedures, bathroom and other care routines, personal items, smoking policy, room service/diet, and visiting hours. Information on how to activate the Rapid Response Team has been discussed. Patient/Family are encouraged to report perceived risks to care and to ask questions if they do not understand what they are told or what they should do.
[2023-05-21 02:00] VITALS: BP 148/92; PULSE 92; RESP 16; TEMP 35.8; O2SAT 94
[2023-05-21 02:43] VITALS: BMI 33.9
[2023-05-21 06:00] VITALS: BP 127/70; PULSE 77; RESP 16; TEMP 35.7; O2SAT 94
[2023-05-21 07:57] LABS: Alanine Aminotransferase 30 U/L (6-50); Albumin Level 3.9 g/dL (3.5-5.1); Alkaline Phosphatase 76 U/L (38-126); Anion Gap 4 mmol/L (8-16); Aspartate Amino Transferase 35 U/L (17-59); Bilirubin,Total 0.7 mg/dL (0.2-1.3); Blood Urea Nitrogen 16 mg/dL (9-20); Calcium 8.4 mg/dL (8.4-10.2); Carbon Dioxide 31 mmol/L (22-30); Chloride 96 mmol/L (98-107); Estimated CRCL calculation 48 ml/min; Estimated Glomerular Filt Rate 57; Glucose 125 mg/dL (65-110); Potassium 4.9 mmol/L (3.4-5.0); Sodium 131 mmol/L (137-145)
[2023-05-21 08:02] LABS: Glucose Point of Care 126 mg/dl (65-105)
[2023-05-21 08:05] LABS: Basophils Percent Auto 0.3 % (0.2-1.2); Eosinophils Absolute Auto 0.1 K/mm3 (0-0.3); Eosinophils Percent Auto 1.4 % (0-4.4); Hematocrit 46.1 % (42.0-52.0); Hemoglobin 15.1 g/dL (14.0-18.0); Immature Granulocyte Absolute 0.04 K/mm3 (0.00-0.031); Immature Granulocyte Percent A 0.4 % (0-0.5); Lymphocytes Absolute Auto 0.57 K/mm3 (0.9-3.2); Lymphocytes Percent Auto 5.6 % (18.3-44.2); Mean Corpuscular HGB Conc 32.8 g/dl (32-36); Mean Corpuscular Hemoglobin 32.6 pg (26-34); Mean Corpuscular Volume 99.6 fl (80-100); Mean Platelet Volume 9.4 fl (7.4-10.4); Monocytes Absolute Auto 0.5 K/mm3 (0.1-0.6); Monocytes Percent Auto 4.5 % (2.6-8.5); Neutrophils Absolute Auto 8.9 K/mm3 (1.3-6.7); Neutrophils Percent Auto 87.8 % (45.5-73.1); Platelet Count Result 166 k/mm3 (150-375); Red Blood Count 4.63 M/mm3 (4.6-6.20); Red Cell Distribution Width 13.9 % (11.5-14.5); White Blood Count 10.1 K/mm3 (4.5-10.0)
--- NOTE | 2023-05-21 09:02 | PM.IMPN ---
Progress Note: A&P Assessment and Plan (1) Femoral neck fracture: Qualifiers: Encounter type: initial encounter Fracture type: closed Laterality: right Qualified Code(s): S72.001A - Fracture of unspecified part of neck of right femur, initial encounter for closed fracture Code(s): S72.009A - Fracture of unspecified part of neck of unspecified femur, initial encounter for closed fracture Status: Acute Assessment and Plan: Right femoral neck fracture with plans for bipolar hip replacement on 05/22. Hold warfarin. (2) Ground-level fall: Code(s): W18.30XA - Fall on same level, unspecified, initial encounter Status: Acute Assessment and Plan: Mechanical tripping injury when his shoe got stuck in Grout of tile floor causing fall with hip fracture (3) Hyponatremia: Code(s): E87.1 - Hypo-osmolality and hyponatremia Status: Chronic Assessment and Plan: Stable with mild improvement sodium level was 127 yesterday and is 130 today. 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 This is being held for surgery. (5) Hypertensive heart disease with chronic diastolic congestive heart failure: Code(s): I11.0 - Hypertensive heart disease with heart failure; I50.32 - Chronic diastolic (congestive) heart failure Status: Acute Assessment and Plan: Vital signs stable, mild asymptomatic hypertension overnight. No signs of fluid pulmonary edema dyspnea or other acute exacerbation CHF. (6) Type 2 diabetes mellitus without complication, without long-term current use of insulin: Code(s): E11.9 - Type 2 diabetes mellitus without complications Status: Acute Assessment and Plan: Diet controlled at home. On low-dose corrective insulin while hospitalized. Previously metformin this was discontinued due to hypoglycemia. (7) Essential tremor: Code(s): G25.0 - Essential tremor Status: Acute Assessment and Plan: On primidone t.i.d., patient confirms not parkinsonian. Time Spent With Patient Time: Hold warfarin NPO after midnight OR tomorrow per Dr. Whitley for bipolar hip replacement pending normalized INR Time with patient: 25 - 35 minutes Subjective Date/time seen: 05/21/23 09:02 Interval history: 05/20: Chief Complaint: Mechanical (tripping) fall landing on right hip with hip fracture Narrative: This is an 88 year old male patient who fell in the bathroom at home due to a mechanical tripping episode where he got his house shoes caught on grout of tile floor.? He landed on his right hip with shortening and rotation noted.? Onset was sudden and non-provoked.? Patient complaining of significant pain requiring IV pain medication in the ER, pain now controlled.? house calls nurse practitioner Orthopedic Surgery, Dr. Navarro states he will do bipolar hip replacement on 05/22.? Patient denies hitting head, denies dizziness, denies nausea or vomiting.? 05/21: Patient seen this morning seated upright at approximately 40? elevation which she states is the highest he can resist bed this time. He states that he needs help eating his food because he cannot sit upright [place] due to pain in his hip. Otherwise patient has no complaints at this time. Again noted are gross tremors upper extremities and face which patient states has been investigated Neurology deemed to be essential tremors for which he is taking primidone 3 times daily. Patient states that his hip pain is well controlled at this time. He understands the plan is for operation tomorrow pending normalized INR. Review of Systems Review of Systems: All systems reviewed & are unremarkable except as noted in HPI and below Exam Narrative: GENERAL: Well appearing, well-nourished, non-toxic, in no acute distress. HEAD: Normoce
[2023-05-21] MEDS: PRIMIDONE 250 MG TABLET PO ×3 (09:53→18:19)
[2023-05-21 09:54] VITALS: PULSE 80
[2023-05-21] MEDS: ATORVASTATIN 10 MG TABLET PO (09:54)
[2023-05-21] MEDS: AMIODARONE HCL 200 MG TABLET PO (09:54)
[2023-05-21] MEDS: CHOLECALCIFEROL 1,000 UNITS TABLET 3000 UNITS PO (09:55)
[2023-05-21] MEDS: FUROSEMIDE 20 MG TABLET PO (09:55)
[2023-05-21] MEDS: TELMISARTAN 40 MG TABLET PO (09:55)
[2023-05-21] MEDS: LORATADINE 10 MG TABLET PO (10:05)
[2023-05-21] MEDS: ONDANSETRON INJ 4 MG/2 ML VIAL IV PUSH ×2 (10:06→14:21)
[2023-05-21] MEDS: HYDROcodone/acetaminophen (*CRX) 5-325 MG TABLET 1 TAB PO ×2 (13:33→19:59)
[2023-05-21 14:20] VITALS: BP 155/72; PULSE 82; RESP 20; TEMP 37.6; O2SAT 100
[2023-05-21 14:58] LABS: INR 3.2; Prothrombin Time 35.6 Seconds (11.1-14.7)
[2023-05-21 16:54] LABS: Glucose Point of Care 138 mg/dl (65-105)
--- NOTE | 2023-05-21 17:32 | PM.CNOR ---
Assessment and Plan Assessment and plan (1) Femoral neck fracture: Qualifiers: Encounter type: initial encounter Fracture type: closed Laterality: right Qualified Code(s): S72.001A - Fracture of unspecified part of neck of right femur, initial encounter for closed fracture Code(s): S72.009A - Fracture of unspecified part of neck of unspecified femur, initial encounter for closed fracture Status: Acute Assessment and Plan: RPISCA SUSTAINED A RIGHT FEMORAL NECK FRACTURE WITH DISPLACEMENT AND WILL NEED A RIGHT HIP TARI ARTHROPLASTY WITH BIPOLAR PROSTHESIS. WE WILL PREFORM THIS WHEN HIS INR HAS IMPROVED TO CLOSE TO 1.0. DISCUSSED NONOPERATIVE AND OPERATIVE TREATMENT OPTIONS WITH THE PATIENT. THE PATIENT'S QUESTIONS WERE ANSWERED. THE PATIENT DESIRES OPERATIVE TREATMENT. RISKS OF SURGERY INCLUDING BUT NOT LIMITED TO NEUROVASCULAR DAMAGE, WOUND COMPLICATIONS, BLOOD CLOT, PULMONARY EMBOLUS, STROKE, DE, ANESTHETIC RISKS UP TO AND INCLUDING WERE REVIEWED. CONTINUED PAIN AND POSSIBLE DYSFUNCTION WERE EXPLAINED. NO GUARANTEES WERE OFFERED. THE PATIENT UNDERSTANDS AND WISHES TO PROCEED. WE WILL PROCEED ONCE HE HAS BEEN CLEARED BY INTERNAL MEDICINE SERVICE History of Present Illness HPI Consult date: 05/21/23 Chief complaint: R Femoral Neck Fracture, GLF, Chronic Anticoagulat Narrative: PIRSCA WAS IN THE BATHROOM AND SLIPPED AND FELL ONTO HIS RIGHT HIP SUSTAINING A FEMORAL NECK FRACTURE WITH DISPLACEMENT. HE HAD PAIN AND SWELLING. HE WAS SEEN IN THE ED AND ADMITTED TO MEDICINE SERVICES. HE IS ON COUMADIN FOR AFIB. HIS INR IS GREATER THAN 2.0. HE COMPLAINS ONLY OF RIGHT HIP PAIN. Review of Systems Review of Systems: All systems reviewed & are unremarkable except as noted in HPI and below PMFSH Past Medical History Medical History Acute respiratory failure with hypoxia Anemia Arthritis BMI 32.0-32.9,adult Cataract Cervical vertebral fusion Chronic atrial fibrillation Chronic diastolic (congestive) heart failure Constipation Edema, lower extremity Encounter to establish care Essential tremor Eye exam normal Glaucoma Headache Hearing loss Hyponatremia Mixed hyperlipidemia Neck pain, acute Pancreatic lesion Pneumonia due to COVID-19 virus Routine eye exam Seasonal allergies Spondylosis of lumbar spine Type 2 diabetes mellitus without complication, without long-term current use of insulin Unspecified fall, initial encounter Family History Family History Father Cerebrovascular accident Sibling Asthma Other Diabetes mellitus Family history of arthritis Hypertension Social History Social History Social History: patient is a nonsmoker and never has smoked. He does not use alcohol or drugs. 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 He would like to be a full code Smoking status: Current some day smoker Tobacco type: smokeless tobacco Smokeless tobacco user: chewing tobacco Second hand tobacco smoke exposure: No Alcohol intake: never Substance use: never Substance use type: does not use Lack of Transportation: No Lack of Food: Never True Current Housing: I Have Housing Concerned About Future Housing: No Difficulty Paying Gas/Electric Bills: No Difficulty Paying for Meds: No Currently Unemployed: No Education: High School Diploma/GED Difficulty w/ Childcare or Family Care: No Gender identity (if verbalized by the patient): Male Spiritual care concerns: No Meds Home Medications and Allergies Home Medications Medication Instructions Recorded Confirmed Type latanoprost 0.005 % eye drops 1 drop ophthalmic (eye) HS 03/28/20 05/21/23 History B-complex with vitamin C 1 tablet PO HS 05/09/20 05/21/23 History amiodarone 200 mg tablet 200 mg PO DAILY
--- NOTE | 2023-05-21 18:10 | PC.NURSE ---
On 05/21/23, the MOLD MAKER APPRENTICE, Ashley Jacob, provided care and completed [employer] documentation on this patient. I have reviewed the MOLD MAKER APPRENTICE's documentation and agree with the findings.
[2023-05-21 19:46] LABS: Glucose Point of Care 151 mg/dl (65-105)
[2023-05-21] MEDS: LATANOPROST 0.005% OP SOLN 2.5 ML BTL 1 DROP EACH EYE (20:18)
[2023-05-21] MEDS: ASCORBIC ACID 500 MG TABLET 1000 MG PO (20:18)
[2023-05-21] MEDS: VITAMIN B COMPLEX/VIT C CAPSULE 1 EACH PO (20:18)
[2023-05-21] MEDS: MONTELUKAST SODIUM 10 MG TABLET PO (20:18)
[2023-05-21 21:18] LABS: Glucose Point of Care 129 mg/dl (65-105)
[2023-05-21 22:00] VITALS: BP 118/53; PULSE 69; RESP 18; TEMP 36.2; O2SAT 95
[2023-05-22] MEDS: MORPHINE SULFATE (*CRX) 4 MG/ML INJ IV PUSH ×2 (05:05→11:23)
[2023-05-22 05:13] VITALS: BP 115/53; PULSE 67; RESP 18; TEMP 36.7; O2SAT 91
[2023-05-22 07:38] LABS: Glucose Point of Care 99 mg/dl (65-105)
[2023-05-22 10:08] LABS: Basophils Percent Auto 0.3 % (0.2-1.2); Eosinophils Absolute Auto 0.2 K/mm3 (0-0.3); Hematocrit 40.2 % (42.0-52.0); Hemoglobin 13.6 g/dL (14.0-18.0); Immature Granulocyte Absolute 0.03 K/mm3 (0.00-0.031); Immature Granulocyte Percent A 0.4 % (0-0.5); Immature Platelet Fraction Pct 2.9 % (0.9-11.2); Lymphocytes Absolute Auto 0.56 K/mm3 (0.9-3.2); Lymphocytes Percent Auto 7.1 % (18.3-44.2); Mean Corpuscular HGB Conc 33.8 g/dl (32-36); Mean Corpuscular Volume 97.6 fl (80-100); Mean Platelet Volume 9.3 fl (7.4-10.4); Monocytes Absolute Auto 0.5 K/mm3 (0.1-0.6); Monocytes Percent Auto 5.9 % (2.6-8.5); Neutrophils Absolute Auto 6.6 K/mm3 (1.3-6.7); Neutrophils Percent Auto 83.3 % (45.5-73.1); Platelet Count Result 141 k/mm3 (150-375); Red Blood Count 4.12 M/mm3 (4.6-6.20); Red Cell Distribution Width 13.7 % (11.5-14.5); White Blood Count 7.9 K/mm3 (4.5-10.0)
[2023-05-22 10:28] LABS: INR 3.3; Prothrombin Time 35.7 Seconds (11.1-14.7)
[2023-05-22] MEDS: PHYTONADIONE 5 MG TABLET 10 MG PO ×2 (10:53→17:13)
[2023-05-22] MEDS: LACTATED RINGERS 1,000 ML 100 ML IV CONT (10:53)
[2023-05-22 11:19] VITALS: PULSE 64
[2023-05-22] MEDS: AMIODARONE HCL 200 MG TABLET PO (11:19)
[2023-05-22] MEDS: PRIMIDONE 250 MG TABLET PO ×2 (11:20→17:13)
[2023-05-22] MEDS: TELMISARTAN 40 MG TABLET PO (11:20)
[2023-05-22] MEDS: LORATADINE 10 MG TABLET PO (11:20)
[2023-05-22] MEDS: FUROSEMIDE 20 MG TABLET PO (11:20)
[2023-05-22 11:32] LABS: Glucose Point of Care 117 mg/dl (65-105)
--- NOTE | 2023-05-22 11:50 | PM.PNORT ---
Progress Note: A&P Assessment and Plan (1) Femoral neck fracture: Qualifiers: Encounter type: initial encounter Fracture type: closed Laterality: right Qualified Code(s): S72.001A - Fracture of unspecified part of neck of right femur, initial encounter for closed fracture Code(s): S72.009A - Fracture of unspecified part of neck of unspecified femur, initial encounter for closed fracture Status: Acute Assessment and Plan: PRISCA INR IS 3.3 AND WILL NOT HAVE SURGERY TODAY. WE WILL PLAN FOR TOMORROW MORNING PENDING HIS INR AT THAT TIME. HE WILL BE GIVEN A DIET TODAY AND NPO AFTER MIDNIGHT. Subjective Subjective Date/Time Seen: 05/22/23 11:50 Interval history: CRUZITO IS NOT A CANDIDATE FOR HIS SURGERY TODAY DUE TO HOS CONTINUED INCREASE IN HIS INR. WE WILL CONTINUE WITH VIT K AND REASSESS HIS INR LEVEL FOR POSSIBLE SURGERY TMRW. Exam Extrem: Other: VSS AFEBRILE NV INTACT THIGH AND CALF SOFT NON TENDER NEG HOMANS SIGN Objective Data Vital Signs Vital Signs: Vital Signs - 24 hr 05/21/23 14:20 05/21/23 22:00 05/22/23 05:13 Temperature 37.6 C 36.2 C L 36.7 C Pulse Rate 82 69 67 Respiratory Rate 20 18 18 Blood Pressure 155/72 H 118/53 L 115/53 L Pulse Oximetry 100 95 91 05/22/23 11:19 Temperature Pulse Rate 64 Respiratory Rate Blood Pressure Pulse Oximetry Intake/Output Intake/Output: Intake & Output 05/19/23 05/20/23 05/21/23 05/22/23 23:59 23:59 23:59 23:59 Intake Total 580 Output Total 400 350 Balance 180 -350 Meds/Results Medications: Active Medications Generic Name Dose Route Start Last Admin Trade Name Freq PRN Reason Stop Dose Admin Acetaminophen 650 mg 05/20/23 22:47 Acetaminophen 325 Mg Tablet PO Q4H PRN Pain 1-3 or Fever Hydrocodone Bitart/Acetaminophen 1 tab 05/21/23 13:07 05/21/23 19:59 Hydrocodone/Acetaminophen (*Crx) 5-325 Mg Tablet PO 1 tab Q6H PRN Administration Pain Rated 4-6 Amiodarone HCl 200 mg 05/21/23 09:00 05/22/23 11:19 Amiodarone Hcl 200 Mg Tablet PO 200 mg DAILY VIVIANE Administration Ascorbic Acid 1,000 mg 05/21/23 21:00 05/21/23 20:18 Ascorbic Acid 500 Mg Tablet PO 1,000 mg HS VIVIANE Administration Atorvastatin Calcium 10 mg 05/21/23 09:00 05/21/23 09:54 Atorvastatin 10 Mg Tablet PO 10 mg Q48HR VIVIANE Administration Dextrose 12.5 gm 05/20/23 22:44 Dextrose 50% 25 Gm/50 Ml Syringe IV PUSH PRN PRN Hypoglycemia Protocol Furosemide 20 mg 05/21/23 09:00 05/22/23 11:20 Furosemide 20 Mg Tablet PO 20 mg DAILY VIVIANE Administration Glucagon 1 mg 05/20/23 22:44 Glucagon For Inj 1 Mg Vial IM PRN PRN Hypoglycemia Protocol Glucose 15 gm 05/20/23 22:44 Glucose Oral Gel 15 Gm Of Glucse In 37.5 Gm Tube PO PRN PRN Hypoglycemia Protocol Dextrose 1,000 mls @ 100 mls/hr 05/20/23 22:44 Dextrose 5% 1,000 Ml IVPB PRN PRN Hypoglycemia Protocol Lactated Ringer's 1,000 mls @ 30 mls/hr 05/21/23 17:45 Lr - Lactated Ringers Iv IV CONT .Q24H VIVIANE Lactated Ringer's 1,000 mls @ 100 mls/hr 05/22/23 09:50 05/22/23 10:53 Lr - Lactated Ringers Iv IV CONT 100 mls/hr .Q10H VIVIANE Administration Insulin Aspart 2 - 5 units 05/21/23 08:00 05/22/23 09:24 Insulin Aspart (*Bkc) 100 Units/Ml SUB-Q Not Given TIDWM VIVIANE Protocol Latanoprost 1 drop 05/21/23 21:00 05/21/23 20:18 Latanoprost 0.005% Op Soln 2.5 Ml Btl EACH EYE 1 drop HS VIVIANE Administration Loratadine 10 mg 05/21/23 09:00 05/22/23 11:20 Loratadine 10 Mg Tablet PO 06/20/23 08:59 10 mg DAILY VIVIANE Administration Montelukast Sodium 10 mg 05/21/23 21:00 05/21/23 20:18 Montelukast Sodium 10 Mg Tablet PO 10 mg QHS VIVIANE Administration Morphine Sulfate 4 mg 05/20/23 22:07 08/04/23 11:23 Morphine Sulfate (*Crx) 4 Mg/Ml Inj IV PUSH 4 mg Q2H PRN Administration Pain Rated 7-
--- NOTE | 2023-05-22 11:52 | PM.IMPN ---
Progress Note: A&P Assessment and Plan (1) Femoral neck fracture: Qualifiers: Encounter type: initial encounter Fracture type: closed Laterality: right Qualified Code(s): S72.001A - Fracture of unspecified part of neck of right femur, initial encounter for closed fracture Code(s): S72.009A - Fracture of unspecified part of neck of unspecified femur, initial encounter for closed fracture Status: Acute Assessment and Plan: Right femoral neck fracture with plans for bipolar hip replacement. 8: INR supratherapeutic despite holding warfarin for 2 days. Patient received vitamin K today and will have INR redrawn this evening with plan to repeat if necessary. Hoping to go to the operating room on 05/23. (2) Ground-level fall: Code(s): W18.30XA - Fall on same level, unspecified, initial encounter Status: Acute Assessment and Plan: Mechanical tripping injury when his shoe got stuck in Grout of tile floor causing fall with hip fracture (3) Hyponatremia: Code(s): E87.1 - Hypo-osmolality and hyponatremia Status: Chronic Assessment and Plan: Stable with mild improvement sodium level. 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 This is being held for surgery. 3: INR increased despite warfarin being held 84: INR remains supratherapeutic. Patient received oral vitamin K with plans to recheck this evening and repeat oral vitamin K if necessary. If INR makes no significant progress we will consider FFP transfusion and IV vitamin K. (5) Hypertensive heart disease with chronic diastolic congestive heart failure: Code(s): I11.0 - Hypertensive heart disease with heart failure; I50.32 - Chronic diastolic (congestive) heart failure Status: Acute Assessment and Plan: Vital signs stable, mild asymptomatic hypertension overnight. No signs of fluid pulmonary edema dyspnea or other acute exacerbation CHF. (6) Type 2 diabetes mellitus without complication, without long-term current use of insulin: Code(s): E11.9 - Type 2 diabetes mellitus without complications Status: Acute Assessment and Plan: Diet controlled at home. On low-dose corrective insulin while hospitalized. Previously metformin this was discontinued due to hypoglycemia. (7) Essential tremor: Code(s): G25.0 - Essential tremor Status: Acute Assessment and Plan: On primidone t.i.d., patient confirms not parkinsonian. Time Spent With Patient Time: INR remains supratherapeutic. Vitamin K given with plans to repeat INR this evening. We will attempt to get INR close to 1 so he can receive surgery tomorrow. Time with patient: 25 - 35 minutes Subjective Date/time seen: 05/22/23 11:52 Interval history: 05/20: Chief Complaint: Mechanical (tripping) fall landing on right hip with hip fracture Narrative: This is an 88 year old male patient who fell in the bathroom at home due to a mechanical tripping episode where he got his house shoes caught on grout of tile floor.? He landed on his right hip with shortening and rotation noted.? Onset was sudden and non-provoked.? Patient complaining of significant pain requiring IV pain medication in the ER, pain now controlled.? 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 Navarro states he will do bipolar hip replacement on 05/22.? Patient denies hitting head, denies dizziness, denies nausea or vomiting.? 05/21: Patient seen this morning seated upright at approximately 40? elevation which she states is the highest he can resist bed this time. He states that he needs help eating his food because he cannot sit upright [place] due to pain in his hip. Otherwise patient has no complaints at this time. Again noted are gross tremors upper extremities and face which patien
--- NOTE | 2023-05-22 11:55 | PM.PNORT ---
Subjective Subjective Date/Time Seen: 05/22/23 11:55 Interval history: RIGHT FEMORA Objective Data Vital Signs Vital Signs: Vital Signs - 24 hr 05/21/23 14:20 05/21/23 22:00 05/22/23 05:13 Temperature 37.6 C 36.2 C L 36.7 C Pulse Rate 82 69 67 Respiratory Rate 20 18 18 Blood Pressure 155/72 H 118/53 L 115/53 L Pulse Oximetry 100 95 91 05/22/23 11:19 Temperature Pulse Rate 64 Respiratory Rate Blood Pressure Pulse Oximetry Intake/Output Intake/Output: Intake & Output 05/19/23 05/20/23 05/21/23 05/22/23 23:59 23:59 23:59 23:59 Intake Total 580 Output Total 400 350 Balance 180 -350 Meds/Results Medications: Active Medications Generic Name Dose Route Start Last Admin Trade Name Freq PRN Reason Stop Dose Admin Acetaminophen 650 mg 05/20/23 22:47 Acetaminophen 325 Mg Tablet PO Q4H PRN Pain 1-3 or Fever Hydrocodone Bitart/Acetaminophen 1 tab 05/21/23 13:07 05/21/23 19:59 Hydrocodone/Acetaminophen (*Crx) 5-325 Mg Tablet PO 1 tab Q6H PRN Administration Pain Rated 4-6 Amiodarone HCl 200 mg 05/21/23 09:00 05/22/23 11:19 Amiodarone Hcl 200 Mg Tablet PO 200 mg DAILY VIVIANE Administration Ascorbic Acid 1,000 mg 05/21/23 21:00 05/21/23 20:18 Ascorbic Acid 500 Mg Tablet PO 1,000 mg HS VIVIANE Administration Atorvastatin Calcium 10 mg 05/21/23 09:00 05/21/23 09:54 Atorvastatin 10 Mg Tablet PO 10 mg Q48HR VIVIANE Administration Dextrose 12.5 gm 05/20/23 22:44 Dextrose 50% 25 Gm/50 Ml Syringe IV PUSH PRN PRN Hypoglycemia Protocol Furosemide 20 mg 05/21/23 09:00 05/22/23 11:20 Furosemide 20 Mg Tablet PO 20 mg DAILY VIVIANE Administration Glucagon 1 mg 05/20/23 22:44 Glucagon For Inj 1 Mg Vial IM PRN PRN Hypoglycemia Protocol Glucose 15 gm 05/20/23 22:44 Glucose Oral Gel 15 Gm Of Glucse In 37.5 Gm Tube PO PRN PRN Hypoglycemia Protocol Dextrose 1,000 mls @ 100 mls/hr 05/20/23 22:44 Dextrose 5% 1,000 Ml IVPB PRN PRN Hypoglycemia Protocol Lactated Ringer's 1,000 mls @ 30 mls/hr 05/21/23 17:45 Lr - Lactated Ringers Iv IV CONT .Q24H VIVIANE Lactated Ringer's 1,000 mls @ 100 mls/hr 05/22/23 09:50 05/22/23 10:53 Lr - Lactated Ringers Iv IV CONT 100 mls/hr .Q10H VIVIANE Administration Insulin Aspart 2 - 5 units 05/21/23 08:00 05/22/23 09:24 Insulin Aspart (*Bkc) 100 Units/Ml SUB-Q Not Given TID[facility] Protocol Latanoprost 1 drop 05/21/23 21:00 05/21/23 20:18 Latanoprost 0.005% Op Soln 2.5 Ml Btl EACH EYE 1 drop HS VIVIANE Administration Loratadine 10 mg 05/21/23 09:00 05/22/23 11:20 Loratadine 10 Mg Tablet PO 06/20/23 08:59 10 mg DAILY VIVIANE Administration Montelukast Sodium 10 mg 05/21/23 21:00 05/21/23 20:18 Montelukast Sodium 10 Mg Tablet PO 10 mg QHS VIVIANE Administration Morphine Sulfate 4 mg 05/20/23 22:07 05/22/23 11:23 Morphine Sulfate (*Crx) 4 Mg/Ml Inj IV PUSH 4 mg Q2H PRN Administration Pain Rated 7-10 Ondansetron HCl 4 mg 05/20/23 22:07 05/21/23 14:21 Ondansetron Inj 4 Mg/2 Ml Vial IV PUSH 4 mg Q4H PRN Administration Nausea Primidone 250 mg 05/21/23 09:00 05/22/23 11:20 Primidone 250 Mg Tablet PO 250 mg TID VIVIANE Administration Telmisartan 40 mg 05/21/23 09:00 05/22/23 11:20 Telmisartan 40 Mg Tablet PO 40 mg DAILY VIVIANE Administration Vitamin B Complex/Vitamin C 1 each 05/21/23 21:00 05/21/23 20:18 Vitamin B Complex/Vit C Capsule PO 06/20/23 20:59 1 each HS VIVIANE Administration Vitamin D 3,000 units 05/21/23 09:00 08/03/23 09:55 Cholecalciferol 1,000 Units Tablet PO 3,000 units DAILY VIVIANE Administration Radiology Results: ITS Impressions Chest X-Ray 05/20/23 21:21 IMPRESSION: No acute cardiopulmonary process. Hip/Pelvis X-Ray 05/20/23 21:21 IMPRESSION: Transverse right femoral neck fractur
[2023-05-22] MEDS: CHOLECALCIFEROL 1,000 UNITS TABLET 3000 UNITS PO (12:45)
[2023-05-22 13:03] LABS: Anion Gap 1 mmol/L (8-16); Blood Urea Nitrogen 21 mg/dL (9-20); Calcium 7.2 mg/dL (8.4-10.2); Carbon Dioxide 26 mmol/L (22-30); Chloride 92 mmol/L (98-107); Estimated CRCL calculation 57 ml/min; Estimated Glomerular Filt Rate > 60; Glucose 99 mg/dL (65-110); Potassium 4.8 mmol/L (3.4-5.0); Sodium 119 mmol/L (137-145)
[2023-05-22] MEDS: SODIUM CHLORIDE 0.9% IV 1,000 ML 500 ML IV CONT (13:38)
[2023-05-22 14:00] VITALS: BP 117/51; PULSE 66; RESP 18; TEMP 36.5; O2SAT 93
[2023-05-22 14:52] LABS: Potassium Urine Random 24.9 meq/L
[2023-05-22 15:55] LABS: INR 2.9; Prothrombin Time 32.3 Seconds (11.1-14.7)
[2023-05-22 16:08] LABS: Sodium 118 mmol/L (137-145)
[2023-05-22 16:13] LABS: Glucose Point of Care 101 mg/dl (65-105)
[2023-05-22 20:05] LABS: Sodium 117 mmol/L (137-145)
[2023-05-22] MEDS: MONTELUKAST SODIUM 10 MG TABLET PO (20:29)
[2023-05-22] MEDS: ASCORBIC ACID 500 MG TABLET 1000 MG PO (20:29)
[2023-05-22] MEDS: LATANOPROST 0.005% OP SOLN 2.5 ML BTL 1 DROP EACH EYE (20:29)
[2023-05-22] MEDS: VITAMIN B COMPLEX/VIT C CAPSULE 1 EACH PO (20:29)
[2023-05-22 21:44] LABS: Glucose Point of Care 119 mg/dl (65-105)
[2023-05-22 21:58] VITALS: BP 145/53; PULSE 69; RESP 20; TEMP 36.8; O2SAT 92
[2023-05-22] MEDS: SODIUM CHLORIDE 3% 270 ML 90 ML IV CONT (22:22)
[2023-05-23 01:09] LABS: Creatinine Urine 81.7 mg/dL; Total Protein Urine Random 38 mg/dL; Ur Ttl Prot Creatinine Ratio 0.47 mg/mg (0-0.20); Urea Random Urine 766 MG/DL
[2023-05-23 01:21] LABS: Sodium Urine Random 33 meq/L
[2023-05-23 02:47] LABS: Basophils Percent Auto 0.4 % (0.2-1.2); Eosinophils Absolute Auto 0.3 K/mm3 (0-0.3); Eosinophils Percent Auto 4.3 % (0-4.4); Hematocrit 35.8 % (42.0-52.0); Hemoglobin 12.1 g/dL (14.0-18.0); Immature Granulocyte Absolute 0.02 K/mm3 (0.00-0.031); Immature Granulocyte Percent A 0.3 % (0-0.5); Lymphocytes Absolute Auto 0.61 K/mm3 (0.9-3.2); Lymphocytes Percent Auto 8.4 % (18.3-44.2); Mean Corpuscular HGB Conc 33.8 g/dl (32-36); Mean Corpuscular Hemoglobin 32.9 pg (26-34); Mean Corpuscular Volume 97.3 fl (80-100); Monocytes Absolute Auto 0.5 K/mm3 (0.1-0.6); Monocytes Percent Auto 7.2 % (2.6-8.5); Neutrophils Absolute Auto 5.8 K/mm3 (1.3-6.7); Neutrophils Percent Auto 79.4 % (45.5-73.1); Platelet Count Result 133 k/mm3 (150-375); Red Blood Count 3.68 M/mm3 (4.6-6.20); Red Cell Distribution Width 13.4 % (11.5-14.5); White Blood Count 7.2 K/mm3 (4.5-10.0)
[2023-05-23 02:57] LABS: Alanine Aminotransferase 19 U/L (6-50); Albumin Level 3.1 g/dL (3.5-5.1); Alkaline Phosphatase 54 U/L (38-126); Anion Gap 5 mmol/L (8-16); Aspartate Amino Transferase 26 U/L (17-59); Bilirubin,Total 0.8 mg/dL (0.2-1.3); Blood Urea Nitrogen 18 mg/dL (9-20); Calcium 7.3 mg/dL (8.4-10.2); Carbon Dioxide 22 mmol/L (22-30); Chloride 94 mmol/L (98-107); Estimated CRCL calculation 57 ml/min; Estimated Glomerular Filt Rate > 60; Glucose 105 mg/dL (65-110); Potassium 3.9 mmol/L (3.4-5.0); Sodium 121 mmol/L (137-145)
[2023-05-23] MEDS: MORPHINE SULFATE (*CRX) 4 MG/ML INJ IV PUSH ×2 (05:49→12:24)
[2023-05-23 06:00] VITALS: BP 135/63; PULSE 72; RESP 18; TEMP 36.7; O2SAT 95
[2023-05-23 07:07] LABS: Sodium 120 mmol/L (137-145)
[2023-05-23 07:29] LABS: Glucose Point of Care 106 mg/dl (65-105)
--- NOTE | 2023-05-23 07:29 | PM.IMPN ---
Progress Note: A&P Assessment and Plan (1) Femoral neck fracture: Qualifiers: Encounter type: initial encounter Fracture type: closed Laterality: right Qualified Code(s): S72.001A - Fracture of unspecified part of neck of right femur, initial encounter for closed fracture Code(s): S72.009A - Fracture of unspecified part of neck of unspecified femur, initial encounter for closed fracture Status: Acute Assessment and Plan: Right femoral neck fracture with plans for bipolar hip replacement. 05/22: INR supratherapeutic despite holding warfarin for 2 days. Patient received vitamin K today and will have INR redrawn this evening with plan to repeat if necessary. Hoping to go to the operating room on 05/23. 05/23: INR has improved but patient had hypo natremia yesterday, nephrology on board today to go to the operating on 05/24 if sodiums stabilized. (2) Ground-level fall: Code(s): W18.30XA - Fall on same level, unspecified, initial encounter Status: Acute Assessment and Plan: Mechanical tripping injury when his shoe got stuck in Grout of tile floor causing fall with hip fracture (3) Hyponatremia: Code(s): E87.1 - Hypo-osmolality and hyponatremia Status: Chronic Assessment and Plan: Yesterday morning labs were significantly delayed and did not result the afternoon. At that time patient sudden acute drop in sodium level down to 117 at the lowest. Nephrology was consulted patient received 1 L saline as well 270 mL 3% saline. As of noon today sodium at 125. 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 This is being held for surgery. 05/21: INR increased despite warfarin being held 05/22: INR remains supratherapeutic. Patient received oral vitamin K with plans to recheck this evening and repeat oral vitamin K if necessary. If INR makes no significant progress we will consider FFP transfusion and IV vitamin K. 05/23: INR to 1.3. Will recheck in the morning. No further intervention at this time. (5) Hypertensive heart disease with chronic diastolic congestive heart failure: Code(s): I11.0 - Hypertensive heart disease with heart failure; I50.32 - Chronic diastolic (congestive) heart failure Status: Acute Assessment and Plan: Vital signs stable, mild asymptomatic hypertension overnight. No signs of fluid pulmonary edema dyspnea or other acute exacerbation CHF. (6) Type 2 diabetes mellitus without complication, without long-term current use of insulin: Code(s): E11.9 - Type 2 diabetes mellitus without complications Status: Acute Assessment and Plan: Diet controlled at home. On low-dose corrective insulin while hospitalized. Previously metformin this was discontinued due to hypoglycemia. (7) Essential tremor: Code(s): G25.0 - Essential tremor Status: Acute Assessment and Plan: On primidone t.i.d., patient confirms not parkinsonian. Time Spent With Patient Time: INR normalized but Sodium level dropped yesterday. Working with Nephrology to stabilize sodium for hopeful OR on 05/24. Time with patient: 25 - 35 minutes Subjective Date/time seen: 05/23/23 07:29 Interval history: 05/20: Chief Complaint: Mechanical (tripping) fall landing on right hip with hip fracture Narrative: This is an 88 year old male patient who fell in the bathroom at home due to a mechanical tripping episode where he got his house shoes caught on grout of tile floor.? He landed on his right hip with shortening and rotation noted.? Onset was sudden and non-provoked.? Patient complaining of significant pain requiring IV pain medication in the ER, pain now controlled.? call or contact centre team leader Orthopedic Surgery, Dr. Navarro states he will do bipolar hip replacement on 05/22.? Patient denies hitting head, denies
[2023-05-23 08:38] VITALS: PULSE 64
[2023-05-23] MEDS: AMIODARONE HCL 200 MG TABLET PO (08:38)
[2023-05-23] MEDS: ATORVASTATIN 10 MG TABLET PO (08:38)
[2023-05-23] MEDS: PRIMIDONE 250 MG TABLET PO ×3 (08:38→16:56)
[2023-05-23] MEDS: TELMISARTAN 40 MG TABLET PO (08:38)
[2023-05-23] MEDS: LORATADINE 10 MG TABLET PO (08:39)
[2023-05-23] MEDS: CHOLECALCIFEROL 1,000 UNITS TABLET 3000 UNITS PO (08:39)
[2023-05-23 08:43] LABS: INR 1.3; Prothrombin Time 16.9 Seconds (11.1-14.7)
[2023-05-23 10:26] LABS: Thyroid Stimulating Hormone Reflex 0.481 uIU/mL (0.465-4.68)
[2023-05-23 11:06] LABS: Sodium 125 mmol/L (137-145)
--- NOTE | 2023-05-23 11:11 | PM.PNORT ---
Progress Note: A&P Assessment and Plan (1) Femoral neck fracture: Qualifiers: Encounter type: initial encounter Fracture type: closed Laterality: right Qualified Code(s): S72.001A - Fracture of unspecified part of neck of right femur, initial encounter for closed fracture Code(s): S72.009A - Fracture of unspecified part of neck of unspecified femur, initial encounter for closed fracture Status: Acute Assessment and Plan: PRISCA' INR IS IMPROVED HOWEVER HIS STILL HYPONATREMIC AND WILL NOT HAVE SURGERY TODAY. WE WILL PLAN FOR TOMORROW MORNING PENDING HIS INR AND SODIUM AT THAT TIME. HE WILL BE GIVEN A DIET TODAY AND NPO AFTER MIDNIGHT. Subjective Subjective Date/Time Seen: 05/23/23 11:11 Interval history: RIGHT FEMORAL FRACTURE. HIS INR HAS IMPROVED HOWEVER HIS SODIUM IS STILL LOW. WE WILL EVALUATE HIM TOMORROW FOR POSSIBLE BIPOLAR RIGHT HIP Exam Extrem: Other: VSS AFEBRILE [place] INTACT THIGH AND CALF SOFT NON TENDER NEG HOMANS SIGN Objective Data Vital Signs Vital Signs: Vital Signs - 24 hr 05/22/23 11:19 05/22/23 14:00 05/22/23 21:58 Temperature 36.5 C 36.8 C Pulse Rate 64 66 69 Respiratory Rate 18 20 Blood Pressure 117/51 L 145/53 H Pulse Oximetry 93 92 05/23/23 06:00 05/23/23 08:38 Temperature 36.7 C Pulse Rate 72 64 Respiratory Rate 18 Blood Pressure 135/63 Pulse Oximetry 95 Intake/Output Intake/Output: Intake & Output 05/20/23 05/21/23 05/22/23 05/23/23 23:59 23:59 23:59 23:59 Intake Total 580 1740 1020 Output Total 400 1000 425 Balance 180 740 595 Meds/Results Medications: Active Medications Generic Name Dose Route Start Last Admin Trade Name Freq PRN Reason Stop Dose Admin Acetaminophen 650 mg 05/20/23 22:47 Acetaminophen 325 Mg Tablet PO Q4H PRN Pain 1-3 or Fever Hydrocodone Bitart/Acetaminophen 1 tab 05/21/23 13:07 05/21/23 19:59 Hydrocodone/Acetaminophen (*Crx) 5-325 Mg Tablet PO 1 tab Q6H PRN Administration Pain Rated 4-6 Amiodarone HCl 200 mg 05/21/23 09:00 05/23/23 08:38 Amiodarone Hcl 200 Mg Tablet PO 200 mg DAILY VIVIANE Administration Ascorbic Acid 1,000 mg 05/21/23 21:00 05/22/23 20:29 Ascorbic Acid 500 Mg Tablet PO 1,000 mg HS VIVIANE Administration Atorvastatin Calcium 10 mg 05/21/23 09:00 05/23/23 08:38 Atorvastatin 10 Mg Tablet PO 10 mg Q48HR VIVIANE Administration Dextrose 12.5 gm 05/20/23 22:44 Dextrose 50% 25 Gm/50 Ml Syringe IV PUSH PRN PRN Hypoglycemia Protocol Furosemide 20 mg 05/21/23 09:00 05/22/23 11:20 Furosemide 20 Mg Tablet PO 20 mg DAILY VIVIANE Administration Glucagon 1 mg 05/20/23 22:44 Glucagon For Inj 1 Mg Vial IM PRN PRN Hypoglycemia Protocol Glucose 15 gm 05/20/23 22:44 Glucose Oral Gel 15 Gm Of Glucse In 37.5 Gm Tube PO PRN PRN Hypoglycemia Protocol Lactated Ringer's 1,000 mls @ 30 mls/hr 05/21/23 17:45 Lr - Lactated Ringers Iv IV CONT .Q24H [facility] Insulin Aspart 2 - 5 units 05/21/23 08:00 05/23/23 07:43 Insulin Aspart (*Bkc) 100 Units/Ml SUB-Q Not Given TIDWM [facility] Protocol Latanoprost 1 drop 05/21/23 21:00 05/22/23 20:29 Latanoprost 0.005% Op Soln 2.5 Ml Btl EACH EYE 1 drop HS VIVIANE Administration Loratadine 10 mg 05/21/23 09:00 05/23/23 08:39 Loratadine 10 Mg Tablet PO 06/20/23 08:59 10 mg DAILY VIVIANE Administration Montelukast Sodium 10 mg 05/21/23 21:00 05/22/23 20:29 Montelukast Sodium 10 Mg Tablet PO 10 mg QHS VIVIANE Administration Morphine Sulfate 4 mg 05/20/23 22:07 05/23/23 05:49 Morphine Sulfate (*Crx) 4 Mg/Ml Inj IV PUSH 4 mg Q2H PRN Administration Pain Rated 7-10 Ondansetron HCl 4 mg 05/20/23 22:07 05/21/23 14:21 Ondansetron Inj 4 Mg/2 Ml Vial IV PUSH 4 mg Q4H PRN Administration Nausea Primidone 250 mg 05/21/23 09:00 08/05/23 08:38 Primidone 250 Mg Tablet PO
[2023-05-23 11:56] LABS: Glucose Point of Care 155 mg/dl (65-105)
--- NOTE | 2023-05-23 13:15 | WPDANESPN ---
Anes - Prog Note Post-Op Date/Time: 05/23/23 13:15 Cardiovascular status: normal Respiratory status: normal Airway patency: baseline Mental status: baseline Post-Op hydration status: normal Vital Signs: Last Vital Signs Temp 36.7 C 05/23/23 06:00 Pulse 64 05/23/23 08:38 Resp 18 05/23/23 06:00 BP 135/63 05/23/23 06:00 Pulse Ox 95 05/23/23 06:00 O2 Del Method Room Air 05/22/23 10:00 Pain Score (VAS): 3/10 I/O: Intake & Output 05/22/23 05/23/23 05/23/23 23:59 07:59 15:59 Intake Total 1740 1020 Output Total 650 425 Balance 1090 595 Laboratory Tests 05/23/23 02:39 05/23/23 10:55 05/22/23 05/22/23 05/22/23 00:45 00:45 14:26 WBC RBC Hgb Hct MCV MCH MCHC RDW Plt Count MPV Immature Gran % (Auto) Neut % (Auto) Lymph % (Auto) Worth % (Auto) Eos % (Auto) Baso % (Auto) Lymph # (Auto) Worth # (Auto) Eos # (Auto) Baso # (Auto) Abs Immat Gran (auto) Absolute Neuts (auto) Absolute Nucleated RBC Nucleated RBC % % Immature Plt Fraction PT INR Sodium Potassium Chloride Carbon Dioxide Anion Gap BUN Creatinine Estim Creat Clear Calc Estimated GFR Glucose POC Capillary Glucose Calcium Total Bilirubin AST ALT Alkaline Phosphatase Total Protein Albumin Rzsqc-0-Thywvnqll Gnxnn-3-Fobywdasc Cnxy-0-Vleqpcif Weuk-2-Vjhednfr Gamma Globulins Abnorm Protein Band 1 Abnorm Protein Band 3 PEP Interpretation TSH (Reflex) Random Cortisol Urine Osmolality Pending Ur Random Creatinine Pending U Random Total Protein 38 Ur Random Sodium 33 Ur Random Potassium 24.9 Ur Random Chloride Pending U Random Chloride/Creat Pending Ur Random Urea 766 Urine Creatinine 81.7 Cancelled Protein/Creat Ratio 2 0.47 H Tingley/Lambda Ratio Free Tingley Light Chains Free Lambda Light Chain 05/22/23 05/22/23 05/22/23 15:31 16:10 19:17 WBC RBC Hgb Hct MCV MCH MCHC RDW Plt Count MPV Immature Gran % (Auto) Neut % (Auto) Lymph % (Auto) Worth % (Auto) Eos % (Auto) Baso % (Auto) Lymph # (Auto) Worth # (Auto) Eos # (Auto) Baso # (Auto) Abs Immat Gran (auto) Absolute Neuts (auto) Absolute Nucleated RBC Nucleated RBC % % Immature Plt Fraction PT 32.3 H INR 2.9 Sodium 118 L* 117 L* Potassium Chloride Carbon Dioxide Anion Gap BUN Creatinine Estim Creat Clear Calc Estimated GFR Glucose POC Capillary Glucose 101 Calcium Total Bilirubin AST ALT Alkaline Phosphatase Total Protein Albumin Gdmly-9-Vhsckptuu Tebkk-9-Jssmztruq Qswc-4-Gilgumuz Qrqx-3-Gjywcozx Gamma Globulins Abnorm Protein Band 1 Abnorm Protein Band 3 PEP Interpretation TSH (Reflex) Random Cortisol Urine Osmolality Ur Random Creatinine U Random Total Protein Ur Random Sodium Ur Random Potassium Ur Random Chloride U Random Chloride/Creat Ur Random Urea Urine Creatinine Protein/Creat Ratio 2 Tingley/Lambda Ratio Free Tingley Light Chains Free Lambda Light Chain 05/22/23 05/23/23 05/23/23 21:30 02:39 02:39 WBC 7.2 RBC 3.68 L Hgb 12.1 L Hct 35.8 L MCV 97.3 MCH 32.9 MCHC 33.8 RDW 13.4 Plt Count 133 L MPV 9.0 Immature Gran % (Auto) 0.3 Neut % (Auto) 79.4 H Lymph % (Auto) 8.4 L Worth % (Auto) 7.2 Eos % (Auto) 4.3 Baso % (Auto) 0.4 Lymph # (Auto) 0.61 L Worth # (Auto) 0.5 Eos # (Auto) 0.3 Baso # (Auto) 0.0 Abs Immat Gran (auto) 0.02 Absolute Neuts (auto) 5.8 Absolute Nucleated RBC 0.0 Nucleated RBC % 0.0 % Immature Plt Fraction 3.0 PT INR Sodium 121 L Potassium 3.9 Chloride 94 L Carbon Dioxide 22 Anion Ga
--- NOTE | 2023-05-23 13:47 | PM.CNNEP ---
Assessment and Plan Assessment and plan (1) Hyponatremia: Code(s): E87.1 - Hypo-osmolality and hyponatremia Status: Chronic Plan The patient has hyponatremia. He does have chronic hyponatremia. He does have congestive heart failure and is on long-term diuretics which could lead to some chronic pre renal azotemia. This could lead to chronic hyponatremia. He does not taking long-term medications that would cause hyponatremia otherwise. 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 He does not have chronic pain at home. He does not have a history of active cancer but he does have a pancreatic lesion which was found on a CT scan in February. Perhaps this needs to be repeated later in the hospital stay after the fracture has been taking care of. He does have COPD which could contribute to low sodium as well. He had a CT brain in 2020 which showed chronic issues but nothing that would cause hyponatremia. His low sodium has been going on since 2008. He had acute hyponatremia yesterday. Etiology of this is unclear. He says he was not drinking very much fluid. I do not see where any D5W was ever ordered on this patient. Perhaps the morphine suppressed any free water excretion and the small amount of fluids he got brought his sodium level down. However it should take 6L of fluid to get the sodium from 131-117 and it does not look like he had anywhere near that much fluid IV or p.o. it was repeated and still in the teens 3 times yesterday so I do not think it is an invalid lab. After the 3% saline his sodium level came up to 121 and then 120. Now it up to 125. Will check another level this afternoon at 4:00 p.m. and see where it is. Since it was an acute drop, it is okay for this to correct more than just the 8 per 24 hours. At this point will put him on a 2000cc fluid restriction just so he does not go way overboard on the fluids. Hopefully sodium level will continue to improve to a level above 130. He has never had a formal evaluation of his hyponatremia. So Dr. Michel has ordered TSH, cortisol, and an SPEP. We will order urine and serum osmolality as well. Long discussion with the patient and the family. History of Present Illness Reason for Consult Consult date: 05/23/23 Chief Complaint Chief complaint: R Femoral Neck Fracture, GLF, Chronic Anticoagulat History of Present Illness Narrative: Truong is a very pleasant 88-year-old gentleman who has multiple medical problems including chronic hyponatremia with sodium levels that are low off and on ranging from 130 to about 135. He also has history of anemia, diastolic dysfunction, atrial fibrillation, hyperlipidemia, pancreatic lesion, diabetes, chronic atrial fibrillation, arthritis. Patient's issues started when he tripped in the bathroom and fell and broke his right hip. He went to the emergency room and was evaluated with x-rays found to have a fractured hip and was admitted. Dr. Navarro consulted he was going to have surgery the next morning but his INR was too long. So surgery was delayed until yesterday. At that time his sodium was checked and the level was too low. So the surgery was delayed until today and the sodium was still too low so now it is on for tomorrow. The patient's sodium level was pretty good on admission at 1:28 a.m.. On the 3rd in the morning was up to 131. That was the 1st time the surgery was canceled because of the INR. So they let him eat and drink. He says that he did not really drink all that much and he did not eat much either. He did get some IV fluids but most of it was isotonic between lactated Ringer's and normal saline. Intake/output does not show a large excess of fluid intake regardless of the type of fluid. The family says that yesterday he was somewhat sleepy all day. He was of course receiving morphine but they felt like he was more sleepy yesterday than usual even with th
[2023-05-23 14:00] VITALS: BP 125/52; PULSE 68; RESP 22; TEMP 36.3; O2SAT 98
[2023-05-23 16:35] LABS: Sodium 126 mmol/L (137-145)
[2023-05-23 16:39] LABS: Glucose Point of Care 129 mg/dl (65-105)
--- NOTE | 2023-05-23 17:22 | PC.NURSE ---
Called Dr. Montanez and notified him of sodium level of 126. Continue to closely restrict fluids.
[2023-05-23 20:06] LABS: Sodium 125 mmol/L (137-145)
[2023-05-23] MEDS: ASCORBIC ACID 500 MG TABLET 1000 MG PO (20:33)
[2023-05-23] MEDS: MONTELUKAST SODIUM 10 MG TABLET PO (20:34)
[2023-05-23] MEDS: VITAMIN B COMPLEX/VIT C CAPSULE 1 EACH PO (20:34)
[2023-05-23] MEDS: LATANOPROST 0.005% OP SOLN 2.5 ML BTL 1 DROP EACH EYE (20:34)
[2023-05-23 20:43] LABS: Glucose Point of Care 133 mg/dl (65-105)
[2023-05-23 22:00] VITALS: BP 138/77; PULSE 63; RESP 20; TEMP 36; O2SAT 94
[2023-05-24 04:49] VITALS: BP 144/96; PULSE 55; RESP 20; TEMP 35.8; O2SAT 96
[2023-05-24 05:54] LABS: Basophils Percent Auto 0.5 % (0.2-1.2); Eosinophils Absolute Auto 0.4 K/mm3 (0-0.3); Eosinophils Percent Auto 6.8 % (0-4.4); Hematocrit 35.3 % (42.0-52.0); Hemoglobin 11.9 g/dL (14.0-18.0); Immature Granulocyte Absolute 0.03 K/mm3 (0.00-0.031); Immature Granulocyte Percent A 0.5 % (0-0.5); Lymphocytes Absolute Auto 0.63 K/mm3 (0.9-3.2); Lymphocytes Percent Auto 11.2 % (18.3-44.2); Mean Corpuscular HGB Conc 33.7 g/dl (32-36); Mean Corpuscular Hemoglobin 33.1 pg (26-34); Mean Corpuscular Volume 98.1 fl (80-100); Mean Platelet Volume 9.5 fl (7.4-10.4); Monocytes Absolute Auto 0.6 K/mm3 (0.1-0.6); Monocytes Percent Auto 10.5 % (2.6-8.5); Neutrophils Percent Auto 70.5 % (45.5-73.1); Platelet Count Result 122 k/mm3 (150-375); Red Cell Distribution Width 13.2 % (11.5-14.5); White Blood Count 5.6 K/mm3 (4.5-10.0)
[2023-05-24 06:05] LABS: INR 1.1; Prothrombin Time 14.7 Seconds (11.1-14.7)
[2023-05-24 06:12] LABS: Alanine Aminotransferase 37 U/L (6-50); Albumin Level 2.9 g/dL (3.5-5.1); Alkaline Phosphatase 53 U/L (38-126); Anion Gap 1 mmol/L (8-16); Aspartate Amino Transferase 50 U/L (17-59); Bilirubin,Total 0.5 mg/dL (0.2-1.3); Blood Urea Nitrogen 17 mg/dL (9-20); Calcium 7.5 mg/dL (8.4-10.2); Carbon Dioxide 26 mmol/L (22-30); Chloride 96 mmol/L (98-107); Estimated CRCL calculation 63 ml/min; Estimated Glomerular Filt Rate > 60; Glucose 111 mg/dL (65-110); Potassium 3.9 mmol/L (3.4-5.0); Sodium 123 mmol/L (137-145)
[2023-05-24 07:43] LABS: Glucose Point of Care 101 mg/dl (65-105)
[2023-05-24 08:36] VITALS: PULSE 60
[2023-05-24] MEDS: CHOLECALCIFEROL 1,000 UNITS TABLET 3000 UNITS PO (08:36)
[2023-05-24] MEDS: PRIMIDONE 250 MG TABLET PO ×3 (08:36→17:36)
[2023-05-24] MEDS: AMIODARONE HCL 200 MG TABLET PO (08:36)
--- NOTE | 2023-05-24 11:17 | PM.IMPN ---
Progress Note: A&P Assessment and Plan (1) Femoral neck fracture: Qualifiers: Encounter type: initial encounter Fracture type: closed Laterality: right Qualified Code(s): S72.001A - Fracture of unspecified part of neck of right femur, initial encounter for closed fracture Code(s): S72.009A - Fracture of unspecified part of neck of unspecified femur, initial encounter for closed fracture Status: Acute Assessment and Plan: Right femoral neck fracture with plans for bipolar hip replacement. 05/22: INR supratherapeutic despite holding warfarin for 2 days. Patient received vitamin K today and will have INR redrawn this evening with plan to repeat if necessary. Hoping to go to the operating room on 05/23. 05/23: INR has improved but patient had hypo natremia yesterday, nephrology on board today to go to the operating on 05/24 if sodiums stabilized. 05/24: Surgery again canceled today due to hyponatremia. This is made patient very upset and stressed. Patient concerned about development pressure ulcers as his grandfather due to pressure ulcers. Ordered a specialty mattress and patient has been turn and reposition frequently by nursing staff, no current signs of any pressure wounds (2) Hyponatremia: Code(s): E87.1 - Hypo-osmolality and hyponatremia Status: Chronic Assessment and Plan: Yesterday morning labs were significantly delayed and did not result the afternoon. At that time patient sudden acute drop in sodium level down to 117 at the lowest. Nephrology was consulted patient received 1 L saline as well 270 mL 3% saline. As of noon today sodium at 125. 05/24: Sodium down to 123 this morning, Dr. Montanez notified and additional 3% saline will be ordered. 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 This is being held for surgery. 05/21: INR increased despite warfarin being held 05/22: INR remains supratherapeutic. Patient received oral vitamin K with plans to recheck this evening and repeat oral vitamin K if necessary. If INR makes no significant progress we will consider FFP transfusion and IV vitamin K. 05/23: INR to 1.3. Will recheck in the morning. No further intervention at this time. 05/24: INR 1.1 (4) Hypertensive heart disease with chronic diastolic congestive heart failure: Code(s): I11.0 - Hypertensive heart disease with heart failure; I50.32 - Chronic diastolic (congestive) heart failure Status: Acute Assessment and Plan: Vital signs stable, mild asymptomatic hypertension overnight. No signs of fluid pulmonary edema dyspnea or other acute exacerbation CHF. (5) Type 2 diabetes mellitus without complication, without long-term current use of insulin: Code(s): E11.9 - Type 2 diabetes mellitus without complications Status: Acute Assessment and Plan: Diet controlled at home. On low-dose corrective insulin while hospitalized. Previously metformin this was discontinued due to hypoglycemia. (6) Essential tremor: Code(s): G25.0 - Essential tremor Status: Acute Assessment and Plan: On primidone t.i.d., patient confirms not parkinsonian. (7) Ground-level fall: Code(s): W18.30XA - Fall on same level, unspecified, initial encounter Status: Acute Assessment and Plan: Mechanical tripping injury when his shoe got stuck in Grout of tile floor causing fall with hip fracture Time Spent With Patient Time: INR normalized but Sodium level dropped yesterday. Working with Nephrology to stabilize sodium for hopeful OR on 05/24. Time with patient: 25 - 35 minutes Subjective Date/time seen: 05/24/23 11:17 Interval history: 05/20: Chief Complaint: Mechanical (tripping) fall landing on right hip with hip fracture Narrative: This is an 88 year old male pa
[2023-05-24 11:34] LABS: Glucose Point of Care 105 mg/dl (65-105)
[2023-05-24 12:03] LABS: Appearance Urine Clear (Clear); Bacteria Urine None Seen /hpf; Bilirubin Urine Negative (Negative); Blood Urine 1+ (Negative); Color Urine Yellow (Yellow); Glucose Urine UA Negative (Negative); Ketones Urine Trace mg/dL (Negative); Leukocyte Esterase Ur Negative LEU/UL (Negative); Nitrate Urine Negative (Negative); Protein Urine Trace mg/dL (Negative); Specific Grav Ur 1.008 (1.001-1.035); Squamous Epithelial Cell Urine None seen /hpf (Few); WBC Urine 0-5 /hpf; pH Urine 6.5 (5.0-9.0)
[2023-05-24 12:04] LABS: Add Urine Microscopic? YES
--- NOTE | 2023-05-24 12:11 | PM.PNNEP ---
Progress Note: A&P Assessment and Plan (1) Hyponatremia: Code(s): E87.1 - Hypo-osmolality and hyponatremia Status: Chronic Plan The patient has hyponatremia. He does have chronic hyponatremia. 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 Consider MRI of the brain after fracture is fixed. TSH is okay. Cortisol levels below 15 so we would need to Cortrosyn stim test. Order this. He does have congestive heart failure and is on long-term diuretics which could lead to some chronic pre renal azotemia. This could lead to chronic hyponatremia. He does not taking long-term medications that would cause hyponatremia otherwise. Pain can contribute to low sodium as well. Another consideration would be the pancreatic lesion found on CT in February. He does have COPD which could contribute to low sodium as well, will be lower on the list. He had a significant drop in his sodium levels after admission. If this is because he drank a lot of water (it would have taken about 6L), then the mild fluid restriction should have corrected the sodium on its own. However it did not. Certainly pain medicine can prevent the kidneys from excreting all that free water. And he did drink some water yesterday. I did not put him on a severe fluid restriction yesterday for fear of over-correction. He had already risen from 121-126 in just 16hours. So we do not want to ?force ? the sodium higher in case he auto corrects. If the sodium rises greater than 8, then we have to give D5W and DDAVP and that would delay surgery even longer. Today the sodium level is 123 so I am going to give enough hypertonic saline to get it up to 128 by this evening. The goal would be to get up to 130 tomorrow morning so he can have his surgery. I discussed all of the above at length with the patient and his daughter. I agree that is taking a while to correct the sodium but with a maximum of only 8 in 24 hours we are limited as far as how quickly we can correct the sodium safely. I understand that we want to get the surgery done as well and so there is clearly a desire to get this done as quickly as we can. I told the patient that even no pain meds can cause hyponatremia, we can work around this and he should take pain med as needed for his pain. Pain itself can also make sodium more difficult so he does not want to let his attempts at limiting pain meds go too far. Long discussion with the nursing last evening, patient and his daughter today, and also with IRA Tracy. 23 minutes were spent in conversation with all of the above aoart from clinical activities. Subjective Date/time seen: 05/24/23 12:11 Interval history: Truong is feeling about the same. No chest pain or shortness of breath. He does not like the food but is hungry. He is upset about the sodium. The sodium did drop a little bit this morning further way from the goal him to get the surgery. He is not in whole lot of pain he says as long as he sits still. He was repositioned yesterday (in order to prevent decubitus ulcer from being in the same position too long) which caused quite a bit of pain and so received some pain medicine. His daughter look that up and found that pain medicine can cause low sodium which is true. This made the patient upset as well. We discussed at length. Review of Systems Cardiovascular: Cardiovascular: Reports no additional cardiovascular complaints Respiratory: Respiratory: Reports no additional respiratory complaints Gastrointestinal: Gastrointestinal: Reports no additional gastrointestinal complaints Genitourinary: Genitourinary: Reports no additional male genitourinary complaints Exam Narrative: WDWN in NAD skin no rash head ncat lungs clear cor reg no rub abd BS+ nontender and soft ext trace to1+ bilateral edema. Objective Data Vital Signs Vital Signs: Vital Signs - 24 hr 05/23/23 14:00 05/23/23 22:00 05/24/23 04:49 Temperature 97.3 F
[2023-05-24] MEDS: SODIUM CHLORIDE 3% 500 ML 75 ML IV CONT (12:15)
[2023-05-24] MEDS: TELMISARTAN 40 MG TABLET PO (12:16)
[2023-05-24] MEDS: LORATADINE 10 MG TABLET PO (12:16)
[2023-05-24] MEDS: COSYNTROPIN 0.25 MG/ML VIAL IV PUSH (13:53)
--- NOTE | 2023-05-24 13:53 | PM.PNORT ---
Progress Note: A&P Assessment and Plan (1) Femoral neck fracture: Qualifiers: Encounter type: initial encounter Fracture type: closed Laterality: right Qualified Code(s): S72.001A - Fracture of unspecified part of neck of right femur, initial encounter for closed fracture Code(s): S72.009A - Fracture of unspecified part of neck of unspecified femur, initial encounter for closed fracture Status: Acute Assessment and Plan: PRISCA' INR IS IMPROVED HOWEVER HIS STILL HYPONATREMIC AND WILL NOT HAVE SURGERY TODAY. WE WILL PLAN FOR TOMORROW PENDING HIS SODIUM AT THAT TIME. HE WILL BE GIVEN A DIET TODAY AND NPO AFTER BREAKFAST. Subjective Subjective Date/Time Seen: 05/24/23 13:53 Interval history: RIGHT FEMORAL FRACTURE. HIS INR HAS IMPROVED HOWEVER HIS SODIUM IS STILL LOW. NEPHROLOGY IS CONSULTING AND TAKING CARE OF CORRECTION. SPOKE TO FAMILY WHO AGREES WITH TREATMENT PLAN. WE WILL EVALUATE HIM TOMORROW FOR POSSIBLE BIPOLAR RIGHT HIP Exam Extrem: Other: VSS AFEBRILE, CALF SOFT THIGH SOFT NV INTACT Objective Data Vital Signs Vital Signs: Vital Signs - 24 hr 05/23/23 14:00 05/23/23 22:00 05/24/23 04:49 Temperature 36.3 C L 36.0 C L 35.8 C L Pulse Rate 68 63 55 L Respiratory Rate 22 H 20 20 Blood Pressure 125/52 L 138/77 144/96 H Pulse Oximetry 98 94 96 05/24/23 08:36 Temperature Pulse Rate 60 Respiratory Rate Blood Pressure Pulse Oximetry Intake/Output Intake/Output: Intake & Output 05/21/23 05/22/23 05/23/23 05/24/23 23:59 23:59 23:59 23:59 Intake Total 580 1740 1840 50 Output Total 400 1000 1575 850 Balance 180 740 265 -800 Meds/Results Medications: Active Medications Generic Name Dose Route Start Last Admin Trade Name Freq PRN Reason Stop Dose Admin Acetaminophen 650 mg 05/20/23 22:47 Acetaminophen 325 Mg Tablet PO Q4H PRN Pain 1-3 or Fever Hydrocodone Bitart/Acetaminophen 1 tab 05/21/23 13:07 05/21/23 19:59 Hydrocodone/Acetaminophen (*Crx) 5-325 Mg Tablet PO 1 tab Q6H PRN Administration Pain Rated 4-6 Amiodarone HCl 200 mg 05/21/23 09:00 05/24/23 08:36 Amiodarone Hcl 200 Mg Tablet PO 200 mg DAILY VIVIANE Administration Ascorbic Acid 1,000 mg 05/21/23 21:00 05/23/23 20:33 Ascorbic Acid 500 Mg Tablet PO 1,000 mg HS VIVIANE Administration Atorvastatin Calcium 10 mg 05/21/23 09:00 05/23/23 08:38 Atorvastatin 10 Mg Tablet PO 10 mg Q48HR VIVIANE Administration Dextrose 12.5 gm 05/20/23 22:44 Dextrose 50% 25 Gm/50 Ml Syringe IV PUSH PRN PRN Hypoglycemia Protocol Furosemide 20 mg 05/21/23 09:00 05/22/23 11:20 Furosemide 20 Mg Tablet PO 20 mg DAILY VIVIANE Administration Glucagon 1 mg 05/20/23 22:44 Glucagon For Inj 1 Mg Vial IM PRN PRN Hypoglycemia Protocol Glucose 15 gm 05/20/23 22:44 Glucose Oral Gel 15 Gm Of Glucse In 37.5 Gm Tube PO PRN PRN Hypoglycemia Protocol Lactated Ringer's 1,000 mls @ 30 mls/hr 05/21/23 17:45 Lr - Lactated Ringers Iv IV CONT .Q24H VIVIANE Sodium Chloride 500 mls @ 75 mls/hr 05/24/23 11:20 05/24/23 12:15 Sodium Chloride 3% IV CONT 05/24/23 17:59 75 mls/hr .Q6H40M VIVIANE Administration Insulin Aspart 2 - 5 units 05/21/23 08:00 05/23/23 16:41 Insulin Aspart (*Bkc) 100 Units/Ml SUB-Q Not Given [facility] Protocol Latanoprost 1 drop 05/21/23 21:00 05/23/23 20:34 Latanoprost 0.005% Op Soln 2.5 Ml Btl EACH EYE 1 drop HS VIVIANE Administration Loratadine 10 mg 05/21/23 09:00 05/24/23 12:16 Loratadine 10 Mg Tablet PO 06/20/23 08:59 10 mg DAILY VIVIANE Administration Montelukast Sodium 10 mg 05/21/23 21:00 05/23/23 20:34 Montelukast Sodium 10 Mg Tablet PO 10 mg QHS VIVIANE Administration Morphine Sulfate 4 mg 05/20/23 22:07 05/23/23 12:24 Morphine Sulfate (*Crx) 4 Mg/Ml Inj IV PUSH 4 mg Q2H PRN Administration Pain Rated 7-10 Ondan
[2023-05-24 14:00] VITALS: BP 153/66; PULSE 56; RESP 14; TEMP 38.1; O2SAT 95
[2023-05-24 16:47] LABS: Glucose Point of Care 149 mg/dl (65-105)
[2023-05-24] MEDS: ACETAMINOPHEN 325 MG TABLET 650 MG PO (17:36)
[2023-05-24 19:04] LABS: Sodium 130 mmol/L (137-145)
[2023-05-24 20:00] VITALS: PULSE 61; RESP 18; O2SAT 96
[2023-05-24] MEDS: LATANOPROST 0.005% OP SOLN 2.5 ML BTL 1 DROP EACH EYE (21:59)
[2023-05-24] MEDS: MONTELUKAST SODIUM 10 MG TABLET PO (21:59)
[2023-05-24] MEDS: VITAMIN B COMPLEX/VIT C CAPSULE 1 EACH PO (21:59)
[2023-05-24] MEDS: ASCORBIC ACID 500 MG TABLET 1000 MG PO (21:59)
[2023-05-24 22:00] VITALS: BP 169/64; PULSE 61; RESP 18; TEMP 36.6; O2SAT 96
[2023-05-24 22:12] LABS: Glucose Point of Care 159 mg/dl (65-105)
[2023-05-25 06:00] VITALS: BP 158/62; PULSE 55; RESP 18; TEMP 36.7; O2SAT 95
[2023-05-25 06:01] LABS: Basophils Percent Auto 0.6 % (0.2-1.2); Eosinophils Absolute Auto 0.3 K/mm3 (0-0.3); Eosinophils Percent Auto 6.7 % (0-4.4); Immature Granulocyte Absolute 0.03 K/mm3 (0.00-0.031); Immature Granulocyte Percent A 0.6 % (0-0.5); Lymphocytes Absolute Auto 0.83 K/mm3 (0.9-3.2); Lymphocytes Percent Auto 17.3 % (18.3-44.2); Mean Corpuscular HGB Conc 34.3 g/dl (32-36); Mean Corpuscular Hemoglobin 33.1 pg (26-34); Mean Corpuscular Volume 96.7 fl (80-100); Mean Platelet Volume 9.3 fl (7.4-10.4); Monocytes Absolute Auto 0.6 K/mm3 (0.1-0.6); Monocytes Percent Auto 12.3 % (2.6-8.5); Neutrophils Percent Auto 62.5 % (45.5-73.1); Platelet Count Result 160 k/mm3 (150-375); Red Blood Count 3.62 M/mm3 (4.6-6.20); Red Cell Distribution Width 13.2 % (11.5-14.5); White Blood Count 4.8 K/mm3 (4.5-10.0)
[2023-05-25 06:14] LABS: Alanine Aminotransferase 90 U/L (6-50); Alkaline Phosphatase 64 U/L (38-126); Anion Gap 4 mmol/L (8-16); Aspartate Amino Transferase 96 U/L (17-59); Bilirubin,Total 0.4 mg/dL (0.2-1.3); Blood Urea Nitrogen 16 mg/dL (9-20); Calcium 7.8 mg/dL (8.4-10.2); Carbon Dioxide 27 mmol/L (22-30); Chloride 101 mmol/L (98-107); Estimated CRCL calculation 63 ml/min; Estimated Glomerular Filt Rate > 60; Glucose 113 mg/dL (65-110); Phosphorus 2.9 mg/dL (2.5-4.5); Potassium 3.7 mmol/L (3.4-5.0); Sodium 132 mmol/L (137-145)
[2023-05-25 08:00] VITALS: PULSE 50; O2SAT 95
[2023-05-25 08:12] LABS: Glucose Point of Care 126 mg/dl (65-105)
[2023-05-25 08:16] LABS: Prothrombin Time 13.8 Seconds (11.1-14.7)
[2023-05-25] MEDS: HYDROcodone/acetaminophen (*CRX) 5-325 MG TABLET 1 TAB PO (09:42)
[2023-05-25] MEDS: LORATADINE 10 MG TABLET PO (09:43)
[2023-05-25 09:49] VITALS: PULSE 50
[2023-05-25] MEDS: ATORVASTATIN 10 MG TABLET PO (09:50)
[2023-05-25] MEDS: PRIMIDONE 250 MG TABLET PO ×3 (09:51→17:33)
[2023-05-25] MEDS: CHOLECALCIFEROL 1,000 UNITS TABLET 3000 UNITS PO (09:51)
[2023-05-25] MEDS: TELMISARTAN 40 MG TABLET PO (09:51)
--- NOTE | 2023-05-25 10:00 | P.PNNP_ITS ---
Progress Note: A&P Assessment and Plan (1) Hyponatremia: Code(s): E87.1 - Hypo-osmolality and hyponatremia Status: Chronic Assessment and Plan: * acute on chronic * sodium seems to fluctuate ~ 129 - 135mmol/L * evaluation to date: * TSH okay * cortisol lowish but stim test okay * CXR unremarkable * serum/urine osmolality and protein electrophoresis pending * risk factors for low sodium: * CHF (with need for diuretics leading possible chronic pre-renal azotemia * acute pain (from fracture) * pain medications * known history of COPD * pancreatic lesion (?) * goal of therapy is 6 - 8mmol/L increase in 24 hours -- this has been achieved * soidum up to 132mmol/L -- okay to proceed with surgery from renal perspective * follow serial sodium levels (2) Femoral neck fracture: Qualifiers: Encounter type: initial encounter Fracture type: closed Laterality: right Qualified Code(s): S72.001A - Fracture of unspecified part of neck of right femur, initial encounter for closed fracture Code(s): S72.009A - Fracture of unspecified part of neck of unspecified femur, initial encounter for closed fracture Status: Acute Assessment and Plan: * as noted by admission imaging * Orthopedics following * will need bipolar hip replacement -- hopefully today * pain control (3) Type 2 diabetes mellitus without complication, without long-term current use of insulin: Code(s): E11.9 - Type 2 diabetes mellitus without complications Status: Acute Assessment and Plan: * follow accu-cheks * glycemic control per hospitalists Long and extensive discussion (> 20 minutes) with patient and daughters/family at bedside regarding the above issues and therapy/interventions to date. Will continue to follow. Subjective Date/time seen: 05/25/23 10:00 Interval history: Follow-up for acute on chronic hyponatremia. Chart reviewed -- assuming care from Dr. Montanez; sodium level up to 132mmol/L by recent check and following therapy/interventions to date; he otherwise remains in good spirits; hoping surgery can be done today; discussed extensively with daughters/family at bedsider. Exam Narrative: General: elderly but WD/WN male in NAD Heart: normal S1 and S2; no rub Lungs: clear to auscultation Abdomen: soft, nontender, nondistended, positive bowel sounds Extremities: no cyanosis or clubbing; trace - 1+ edema Skin: warm and dry Objective Data Vital Signs Vital Signs: Vital Signs Temp Pulse Resp BP Pulse Ox O2 Del Method 05/25/23 09:49 50 L 05/25/23 06:00 98.1 F 55 L 18 158/62 H 95 05/24/23 20:00 61 18 96 Room Air 05/24/23 22:00 97.9 F 61 18 169/64 H 96 05/24/23 14:00 100.5 F H 56 L 14 153/66 H 95 Intake/Output Intake/Output: Intake & Output 05/22/23 05/23/23 05/24/23 05/25/23 23:59 23:59 23:59 23:59 Intake Total 1740 1840 530 200 Output Total 1000 1575 1975 375 Balance 390 836 -1275 -649 Meds/Results Medications: Active Medications Generic Name Dose Route Start Last Admin Trade Name Freq PRN Reason Stop Dose Admin Acetaminophen 650 mg 05/20/23 22:47 05/24/23 17:36 Acetaminophen 325 Mg
--- NOTE | 2023-05-25 10:00 | PM.PNNEP ---
Progress Note: A&P Assessment and Plan (1) Hyponatremia: Code(s): E87.1 - Hypo-osmolality and hyponatremia Status: Chronic Assessment and Plan: acute on chronic sodium seems to fluctuate ~ 129 - 135mmol/L evaluation to date: TSH okay cortisol lowish but stim test okay CXR unremarkable serum/urine osmolality and protein electrophoresis pending risk factors for low sodium: CHF (with need for diuretics leading possible chronic pre-renal azotemia acute pain (from fracture) pain medications known history of COPD pancreatic lesion (?) goal of therapy is 6 - 8mmol/L increase in 24 hours -- this has been achieved soidum up to 132mmol/L -- okay to proceed with surgery from renal perspective follow serial sodium levels (2) Femoral neck fracture: Qualifiers: Encounter type: initial encounter Fracture type: closed Laterality: right Qualified Code(s): S72.001A - Fracture of unspecified part of neck of right femur, initial encounter for closed fracture Code(s): S72.009A - Fracture of unspecified part of neck of unspecified femur, initial encounter for closed fracture Status: Acute Assessment and Plan: as noted by admission imaging Orthopedics following will need bipolar hip replacement -- hopefully today pain control (3) Type 2 diabetes mellitus without complication, without long-term current use of insulin: Code(s): E11.9 - Type 2 diabetes mellitus without complications Status: Acute Assessment and Plan: follow accu-cheks glycemic control per hospitalists Long and extensive discussion (> 20 minutes) with patient and daughters/family at bedside regarding the above issues and therapy/interventions to date. Will continue to follow. Subjective Date/time seen: 05/25/23 10:00 Interval history: Follow-up for acute on chronic hyponatremia. Chart reviewed -- assuming care from Dr. Montanez; sodium level up to 132mmol/L by recent check and following therapy/interventions to date; he otherwise remains in good spirits; hoping surgery can be done today; discussed extensively with daughters/family at bedsider. Exam Narrative: General: elderly but WD/WN male in NAD Heart: normal S1 and S2; no rub Lungs: clear to auscultation Abdomen: soft, nontender, nondistended, positive bowel sounds Extremities: no cyanosis or clubbing; trace - 1+ edema Skin: warm and dry Objective Data Vital Signs Vital Signs: Vital Signs Temp Pulse Resp BP Pulse Ox O2 Del Method 05/25/23 09:49 50 L 05/25/23 06:00 98.1 F 55 L 18 158/62 H 95 05/24/23 20:00 61 18 96 Room Air 05/24/23 22:00 97.9 F 61 18 169/64 H 96 05/24/23 14:00 100.5 F H 56 L 14 153/66 H 95 Intake/Output Intake/Output: Intake & Output 05/22/23 05/23/23 05/24/23 05/25/23 23:59 23:59 23:59 23:59 Intake Total 1740 1840 530 200 Output Total 1000 1575 1975 375 Balance 448 156 -9738 -881 Meds/Results Medications: Active Medications Generic Name Dose Route Start Last Admin Trade Name Freq PRN Reason Stop Dose Admin Acetaminophen 650 mg 05/20/23 22:47 05/24/23 17:36 Acetaminophen 325 Mg Tablet PO 650 mg Q4H PRN Administration Pain 1-3 or Fever Hydrocodone Bitart/Acetaminophen 1 tab 05/21/23 13:07 05/25/23 09:42 Hydrocodone/Acetaminophen (*Crx) 5-325 Mg Tablet PO 1 tab Q6H PRN Administration Pain Rated 4-6 Amiodarone HCl 200 mg 05/21/23 09:00 05/25/23 09:49 Amiodarone Hcl 200 Mg Tablet PO Not Given DAILY VIVIANE Ascorbic Acid 1,000 mg 05/21/23 21:00 05/24/23 21:59 Ascorbic Acid 500 Mg Tablet PO 1,000 mg HS VIVIANE Administration Atorvastatin Calcium 10 mg 05/21/23 09:00 05/25/23 09:50 Atorvastatin 10 Mg Tablet PO 10 mg Q48HR VIVIANE Administration Dextrose 12.5 gm 05/20/23 22:44 Dextrose 50% 25 Gm/50 Ml Syringe IV PUSH PRN PRN Hypoglycemia Protoc
--- NOTE | 2023-05-25 11:05 | PM.IMPN ---
Progress Note: A&P Assessment and Plan (1) Femoral neck fracture: Qualifiers: Encounter type: initial encounter Fracture type: closed Laterality: right Qualified Code(s): S72.001A - Fracture of unspecified part of neck of right femur, initial encounter for closed fracture Code(s): S72.009A - Fracture of unspecified part of neck of unspecified femur, initial encounter for closed fracture Status: Acute Assessment and Plan: Right femoral neck fracture with plans for bipolar hip replacement. 05/22: INR supratherapeutic despite holding warfarin for 2 days. Patient received vitamin K today and will have INR redrawn this evening with plan to repeat if necessary. Hoping to go to the operating room on 05/23. 05/23: INR has improved but patient had hypo natremia yesterday, nephrology on board today to go to the operating on 05/24 if sodiums stabilized. 05/24: Surgery again canceled today due to hyponatremia. This is made patient very upset and stressed. Patient concerned about development pressure ulcers as his grandfather due to pressure ulcers. Ordered a specialty mattress and patient has been turn and reposition frequently by nursing staff, no current signs of any pressure wounds 05/25: Patient cleared for surgery whenever OR time is available. Patient NPO today. Specialty mattress ordered. (2) Hyponatremia: Code(s): E87.1 - Hypo-osmolality and hyponatremia Status: Chronic Assessment and Plan: Yesterday morning labs were significantly delayed and did not result the afternoon. At that time patient sudden acute drop in sodium level down to 117 at the lowest. Nephrology was consulted patient received 1 L saline as well 270 mL 3% saline. As of noon today sodium at 125. 05/24: Sodium down to 123 this morning, Dr. Montanez notified and additional 3% saline will be ordered. 05/25: Sodium improved after 3% saline yesterday. Level was 130 last night and 132 this morning with labs. (3) Chronic anticoagulation: Code(s): Z79.01 - custodial (current) use of anticoagulants Status: Acute Assessment and Plan: On warfarin for chronic AFib was therapeutic on arrival at 2.1 INR. This is being held for surgery. 05/21: INR increased despite warfarin being held 05/22: INR remains supratherapeutic. Patient received oral vitamin K with plans to recheck this evening and repeat oral vitamin K if necessary. If INR makes no significant progress we will consider FFP transfusion and IV vitamin K. 05/23: INR to 1.3. Will recheck in the morning. No further intervention at this time. 05/24: INR 1.1 05/25: INR 1.0 (4) Hypertensive heart disease with chronic diastolic congestive heart failure: Code(s): I11.0 - Hypertensive heart disease with heart failure; I50.32 - Chronic diastolic (congestive) heart failure Status: Acute Assessment and Plan: Vital signs stable, mild asymptomatic hypertension overnight. No signs of fluid pulmonary edema dyspnea or other acute exacerbation CHF. (5) Type 2 diabetes mellitus without complication, without long-term current use of insulin: Code(s): E11.9 - Type 2 diabetes mellitus without complications Status: Acute Assessment and Plan: Diet controlled at home. On low-dose corrective insulin while hospitalized. Previously metformin this was discontinued due to hypoglycemia. (6) Essential tremor: Code(s): G25.0 - Essential tremor Status: Acute Assessment and Plan: On primidone t.i.d., patient confirms not parkinsonian. (7) Ground-level fall: Code(s): W18.30XA - Fall on same level, unspecified, initial encounter Status: Acute Assessment and Plan: Mechanical tripping injury when his shoe got stuck in Grout of tile floor causing fall with hip fracture Time Spent With Patient Time: Hyponatremia has been corrected. Patient NPO for possible OR. Time with patient: 25 - 35 minutes Subjective Date/siomara
[2023-05-25 11:57] LABS: Glucose Point of Care 115 mg/dl (65-105)
[2023-05-25 14:00] VITALS: BP 147/70; PULSE 56; RESP 16; TEMP 36.9; O2SAT 97
[2023-05-25] MEDS: ACETAMINOPHEN 325 MG TABLET 650 MG PO ×2 (14:33→21:43)
--- NOTE | 2023-05-25 16:05 | PM.PNORT ---
Progress Note: A&P Assessment and Plan (1) Femoral neck fracture: Qualifiers: Encounter type: initial encounter Fracture type: closed Laterality: right Qualified Code(s): S72.001A - Fracture of unspecified part of neck of right femur, initial encounter for closed fracture Code(s): S72.009A - Fracture of unspecified part of neck of unspecified femur, initial encounter for closed fracture Status: Acute Assessment and Plan: PRISCA' SODIUM HAS IMPROVED AND HE HAS BEEN CLEARED BY NEPHROLOGY. WE WILL PLAN FOR RIGHT HIP BIPOLAR TOMORROW PENDING HIS SODIUM AT THAT TIME. HE WILL BE GIVEN A DIET TODAY AND NPO AFTER MIDNIGHT Subjective Subjective Date/Time Seen: 05/25/23 16:05 Interval history: RIGHT FEMORAL NECK FRACTURE. HIS INR HAS IMPROVED AND HIS SODIUM HAS WELL. NEPHROLOGY IS CONSULTING AND THEY HAVE CLEARED HIM FOR SURGERY. SPOKE TO FAMILY WHO AGREES WITH TREATMENT PLAN. WE WILL SCHEDULE HIM BIPOLAR RIGHT HIP Exam Extrem: Other: VSS AFEBRILE NV INTACT THIGH AND CALF SOFT NON TENDER NEG HOMANS SIGN Objective Data Vital Signs Vital Signs: Vital Signs - 24 hr 05/24/23 22:00 05/24/23 20:00 05/25/23 06:00 Temperature 36.6 C 36.7 C Pulse Rate 61 61 55 L Respiratory Rate 18 18 18 Blood Pressure 169/64 H 158/62 H Pulse Oximetry 96 96 95 Oxygen Delivery Room Air 05/25/23 09:49 05/25/23 08:00 Temperature Pulse Rate 50 L 50 L Respiratory Rate Blood Pressure Pulse Oximetry 95 Oxygen Delivery Room Air Intake/Output Intake/Output: Intake & Output 05/22/23 05/23/23 05/24/23 05/25/23 23:59 23:59 23:59 23:59 Intake Total 1740 1840 530 200 Output Total 1000 1575 1975 375 Balance 740 004 -3014 -970 Meds/Results Medications: Active Medications Generic Name Dose Route Start Last Admin Trade Name Freq PRN Reason Stop Dose Admin Acetaminophen 650 mg 05/20/23 22:47 05/25/23 14:33 Acetaminophen 325 Mg Tablet PO 650 mg Q4H PRN Administration Pain 1-3 or Fever Hydrocodone Bitart/Acetaminophen 1 tab 05/21/23 13:07 05/25/23 09:42 Hydrocodone/Acetaminophen (*Crx) 5-325 Mg Tablet PO 1 tab Q6H PRN Administration Pain Rated 4-6 Amiodarone HCl 200 mg 05/21/23 09:00 05/25/23 09:49 Amiodarone Hcl 200 Mg Tablet PO Not Given DAILY VIVIANE Ascorbic Acid 1,000 mg 05/21/23 21:00 05/24/23 21:59 Ascorbic Acid 500 Mg Tablet PO 1,000 mg HS VIVIANE Administration Atorvastatin Calcium 10 mg 05/21/23 09:00 05/25/23 09:50 Atorvastatin 10 Mg Tablet PO 10 mg Q48HR VIVIANE Administration Sodium Chloride 38.7 ml/ 0 ml 05/26/23 06:00 Morphine Sulfate 2 mg/ INFILTRATE 05/26/23 06:01 Ropivacaine 200 mg/ ONCE ONE Epinephrine HCl 0.3 mg Dextrose 12.5 gm 05/20/23 22:44 Dextrose 50% 25 Gm/50 Ml Syringe IV PUSH PRN PRN Hypoglycemia Protocol Furosemide 20 mg 05/21/23 09:00 05/22/23 11:20 Furosemide 20 Mg Tablet PO 20 mg DAILY VIVIANE Administration Glucagon 1 mg 05/20/23 22:44 Glucagon For Inj 1 Mg Vial IM PRN PRN Hypoglycemia Protocol Glucose 15 gm 05/20/23 22:44 Glucose Oral Gel 15 Gm Of Glucse In 37.5 Gm Tube PO PRN PRN Hypoglycemia Protocol Lactated Ringer's 1,000 mls @ 30 mls/hr 05/21/23 17:45 Lr - Lactated Ringers Iv IV CONT .Q24H [facility] Lactated Ringer's 1,000 mls @ 50 mls/hr 05/26/23 00:01 Lr - Lactated Ringers Iv IV CONT .Q20H [facility] Insulin Aspart 2 - 5 units 05/21/23 08:00 05/25/23 14:35 Insulin Aspart (*Bkc) 100 Units/Ml SUB-Q Not Given TIDWM [facility] Protocol Latanoprost 1 drop 05/21/23 21:00 05/24/23 21:59 Latanoprost 0.005% Op Soln 2.5 Ml Btl EACH EYE 1 drop HS VIVIANE Administration Loratadine 10 mg 05/21/23 09:00 05/25/23 09:43 Loratadine 10 Mg Tablet PO 06/20/23 08:59 10 mg DAILY VIVIANE Administration Montelukast Sodium 10 mg 05/21/23 21:00 05/24/23 21:59 Montelukast Sodium 10 Mg T
[2023-05-25 17:20] LABS: Glucose Point of Care 141 mg/dl (65-105)
[2023-05-25 18:50] LABS: Sodium 133 mmol/L (137-145)
[2023-05-25 20:00] VITALS: PULSE 55; RESP 16; O2SAT 96
[2023-05-25 21:11] LABS: Glucose Point of Care 120 mg/dl (65-105)
[2023-05-25 21:16] VITALS: BP 143/59; PULSE 55; RESP 16; TEMP 36.4; O2SAT 96
[2023-05-25] MEDS: MONTELUKAST SODIUM 10 MG TABLET PO (21:43)
[2023-05-25] MEDS: LATANOPROST 0.005% OP SOLN 2.5 ML BTL 1 DROP EACH EYE (21:43)
[2023-05-25] MEDS: ASCORBIC ACID 500 MG TABLET 1000 MG PO (21:43)
[2023-05-25] MEDS: VITAMIN B COMPLEX/VIT C CAPSULE 1 EACH PO (21:43)
[2023-05-25] MEDS: LACTATED RINGERS 1,000 ML 50 ML IV CONT (23:23)
--- NOTE | 2023-05-25 23:25 | PC.NURSE ---
While hanging patient's ordered fluids at this time, patient awoke. Explained to patient about fluids being administered and reason. Patient states that he's never seen me before and does not believe that I am his nurse. Explained to patient that I have been his nurse for the last 3 nights and spoke with him earlier in this shift when I did his assessment and gave him his evening medications. Patient called his daughter at this time and told his daughter that this nutcase says she my nurse and is putting tubes and fluids in his arm and it all seems suspicious. Daughter called this nurse on desk phone and I explained that he was confused from being startled awake. Charge nurse Jimena spoke with patient to help calm and reassure him. Patient agrees to care and reoriented.
[2023-05-26] VITALS (16 sets, daily range): BP systolic 130–175; BP diastolic 56–99; PULSE 57–85; RESP 11–20; TEMP 35.4–36.7; O2SAT 94–100
[2023-05-26 07:18] LABS: Basophils Percent Auto 0.7 % (0.2-1.2); Eosinophils Absolute Auto 0.3 K/mm3 (0-0.3); Eosinophils Percent Auto 5.9 % (0-4.4); Hematocrit 37.4 % (42.0-52.0); Hemoglobin 12.5 g/dL (14.0-18.0); Immature Granulocyte Absolute 0.04 K/mm3 (0.00-0.031); Immature Granulocyte Percent A 0.9 % (0-0.5); Lymphocytes Absolute Auto 0.62 K/mm3 (0.9-3.2); Lymphocytes Percent Auto 14.2 % (18.3-44.2); Mean Corpuscular HGB Conc 33.4 g/dl (32-36); Mean Corpuscular Hemoglobin 32.4 pg (26-34); Mean Corpuscular Volume 96.9 fl (80-100); Mean Platelet Volume 8.9 fl (7.4-10.4); Monocytes Absolute Auto 0.5 K/mm3 (0.1-0.6); Monocytes Percent Auto 11.4 % (2.6-8.5); Neutrophils Absolute Auto 2.9 K/mm3 (1.3-6.7); Neutrophils Percent Auto 66.9 % (45.5-73.1); Platelet Count Result 189 k/mm3 (150-375); Red Blood Count 3.86 M/mm3 (4.6-6.20); Red Cell Distribution Width 13.2 % (11.5-14.5); White Blood Count 4.4 K/mm3 (4.5-10.0)
--- NOTE | 2023-05-26 07:24 | WPDHPUPDATE1 ---
History and Physical Update Update Date/Time: 05/26/23 07:24 History and Physical has been reviewed, including an updated exam of the patient. There are NO changes in the patient's condition. Risks, benefits, and alternatives have been discussed and questions answered. Patient agrees to proceed with procedure.
[2023-05-26 07:31] LABS: Alanine Aminotransferase 85 U/L (6-50); Albumin Level 2.9 g/dL (3.5-5.1); Alkaline Phosphatase 57 U/L (38-126); Anion Gap 3 mmol/L (8-16); Aspartate Amino Transferase 67 U/L (17-59); Bilirubin,Total 0.4 mg/dL (0.2-1.3); Blood Urea Nitrogen 20 mg/dL (9-20); Calcium 7.9 mg/dL (8.4-10.2); Carbon Dioxide 26 mmol/L (22-30); Chloride 101 mmol/L (98-107); Estimated CRCL calculation 71 ml/min; Estimated Glomerular Filt Rate > 60; Glucose 115 mg/dL (65-110); Potassium 3.7 mmol/L (3.4-5.0); Sodium 130 mmol/L (137-145)
[2023-05-26 07:39] LABS: Glucose Point of Care 122 mg/dl (65-105)
--- NOTE | 2023-05-26 09:02 | PM.IMPN ---
Progress Note: A&P Assessment and Plan (1) Femoral neck fracture: Qualifiers: Encounter type: initial encounter Fracture type: closed Laterality: right Qualified Code(s): S72.001A - Fracture of unspecified part of neck of right femur, initial encounter for closed fracture Code(s): S72.009A - Fracture of unspecified part of neck of unspecified femur, initial encounter for closed fracture Status: Acute Assessment and Plan: Right femoral neck fracture with plans for bipolar hip replacement. 05/22: INR supratherapeutic despite holding warfarin for 2 days. Patient received vitamin K today and will have INR redrawn this evening with plan to repeat if necessary. Hoping to go to the operating room on 05/23. 05/23: INR has improved but patient had hypo natremia yesterday, nephrology on board today to go to the operating on 05/24 if sodiums stabilized. 05/24: Surgery again canceled today due to hyponatremia. This is made patient very upset and stressed. Patient concerned about development pressure ulcers as his grandfather due to pressure ulcers. Ordered a specialty mattress and patient has been turn and reposition frequently by nursing staff, no current signs of any pressure wounds 05/25: Patient cleared for surgery whenever OR time is available. Patient NPO today. Specialty mattress ordered. 05/26: Patient was moved to a specialty mattress. He is going to the operating room this afternoon. (2) Hyponatremia: Code(s): E87.1 - Hypo-osmolality and hyponatremia Status: Chronic Assessment and Plan: Yesterday morning labs were significantly delayed and did not result the afternoon. At that time patient sudden acute drop in sodium level down to 117 at the lowest. Nephrology was consulted patient received 1 L saline as well 270 mL 3% saline. As of noon today sodium at 125. 05/24: Sodium down to 123 this morning, Dr. Montanez notified and additional 3% saline will be ordered. 05/25: Sodium improved after 3% saline yesterday. Level was 130 last night and 132 this morning with labs. 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 This is being held for surgery. 05/21: INR increased despite warfarin being held 05/22: INR remains supratherapeutic. Patient received oral vitamin K with plans to recheck this evening and repeat oral vitamin K if necessary. If INR makes no significant progress we will consider FFP transfusion and IV vitamin K. 05/23: INR to 1.3. Will recheck in the morning. No further intervention at this time. 05/24: INR 1.1 05/25: INR 1.0 (4) Hypertensive heart disease with chronic diastolic congestive heart failure: Code(s): I11.0 - Hypertensive heart disease with heart failure; I50.32 - Chronic diastolic (congestive) heart failure Status: Acute Assessment and Plan: Vital signs stable No signs of fluid pulmonary edema dyspnea or other acute exacerbation CHF. (5) Type 2 diabetes mellitus without complication, without long-term current use of insulin: Code(s): E11.9 - Type 2 diabetes mellitus without complications Status: Acute Assessment and Plan: Diet controlled at home. On low-dose corrective insulin while hospitalized. Previously metformin this was discontinued due to hypoglycemia. (6) Essential tremor: Code(s): G25.0 - Essential tremor Status: Acute Assessment and Plan: On primidone t.i.d., patient confirms not parkinsonian. (7) Ground-level fall: Code(s): W18.30XA - Fall on same level, unspecified, initial encounter Status: Acute Assessment and Plan: Mechanical tripping injury when his shoe got stuck in Grout of tile floor causing fall with hip fracture Plan Operating room today. Manage pain in sodiu
[2023-05-26] MEDS: PRIMIDONE 250 MG TABLET PO (09:06)
[2023-05-26] MEDS: AMIODARONE HCL 200 MG TABLET PO (09:06)
--- NOTE | 2023-05-26 10:00 | P.PNNP_ITS ---
Progress Note: A&P Assessment and Plan (1) Hyponatremia: Code(s): E87.1 - Hypo-osmolality and hyponatremia Status: Chronic Assessment and Plan: * acute on chronic * sodium seems to fluctuate ~ 129 - 135mmol/L * evaluation to date: * TSH okay * cortisol lowish but stim test okay * CXR unremarkable * serum/urine osmolality and protein electrophoresis pending * risk factors for low sodium: * CHF (with need for diuretics leading possible chronic pre-renal azotemia * acute pain (from fracture) * pain medications * known history of COPD * pancreatic lesion (?) * goal of therapy is 6 - 8mmol/L increase in 24 hours -- this has been achieved * okay to proceed with surgery from renal perspective * on fluid restriction * follow serial sodium levels (2) Femoral neck fracture: Qualifiers: Encounter type: initial encounter Fracture type: closed Laterality: right Qualified Code(s): S72.001A - Fracture of unspecified part of neck of right femur, initial encounter for closed fracture Code(s): S72.009A - Fracture of unspecified part of neck of unspecified femur, initial encounter for closed fracture Status: Acute Assessment and Plan: * as noted by admission imaging * Orthopedics following * will need bipolar hip replacement -- hopefully today * pain control (3) Type 2 diabetes mellitus without complication, without long-term current use of insulin: Code(s): E11.9 - Type 2 diabetes mellitus without complications Status: Acute Assessment and Plan: * follow accu-cheks * glycemic control per hospitalists Will continue to follow. Subjective Date/time seen: 05/26/23 10:00 Interval history: Follow-up for acute on chronic hyponatremia. Sodium remains relatively stable by labs yesterday and this morning; tentatively scheduled for surgery today; no apparent distress noted; no issues/events overnight or earlier this morning. Exam Narrative: General: elderly but WD/WN male in NAD Heart: normal S1 and S2; no rub Lungs: clear to auscultation Abdomen: soft, nontender, nondistended, positive bowel sounds Extremities: no cyanosis or clubbing; trace - 1+ edema Skin: warm and intact Objective Data Vital Signs Vital Signs: Vital Signs Temp Pulse Resp BP Pulse Ox O2 Del Method 05/26/23 09:06 64 05/26/23 06:40 142/82 H 05/26/23 05:52 97.3 F L 57 L 16 170/56 H 94 05/25/23 20:00 55 L 16 96 Room Air 05/25/23 21:16 97.5 F L 55 L 16 143/59 H 96 05/25/23 14:00 98.4 F 56 L 16 147/70 H 97 Intake/Output Intake/Output: Intake & Output 05/23/23 05/24/23 05/25/23 05/26/23 23:59 23:59 23:59 23:59 Intake Total 1840 530 200 500 Output Total 1575 6499 616 4431 Balance 265 -1445 -575 -1125 Meds/Results Medications: Active Medications Generic Name Dose Route Start Last Admin Trade Name Freq PRN Reason Stop Dose Admin Acetaminophen 650 mg 05/20/23 22:47 05/25/23 21:43 Acetaminophen 325 Mg Tablet PO 650 mg Q4H PRN Administration Pain 1-3 or Fever Hydrocodone Bitart/Acetaminophen 1 tab 05/21/23 13:07 05/25/23 09:42 Hydrocodon
--- NOTE | 2023-05-26 10:00 | PM.PNNEP ---
Progress Note: A&P Assessment and Plan (1) Hyponatremia: Code(s): E87.1 - Hypo-osmolality and hyponatremia Status: Chronic Assessment and Plan: acute on chronic sodium seems to fluctuate ~ 129 - 135mmol/L evaluation to date: TSH okay cortisol lowish but stim test okay CXR unremarkable serum/urine osmolality and protein electrophoresis pending risk factors for low sodium: CHF (with need for diuretics leading possible chronic pre-renal azotemia acute pain (from fracture) pain medications known history of COPD pancreatic lesion (?) goal of therapy is 6 - 8mmol/L increase in 24 hours -- this has been achieved okay to proceed with surgery from renal perspective on fluid restriction follow serial sodium levels (2) Femoral neck fracture: Qualifiers: Encounter type: initial encounter Fracture type: closed Laterality: right Qualified Code(s): S72.001A - Fracture of unspecified part of neck of right femur, initial encounter for closed fracture Code(s): S72.009A - Fracture of unspecified part of neck of unspecified femur, initial encounter for closed fracture Status: Acute Assessment and Plan: as noted by admission imaging Orthopedics following will need bipolar hip replacement -- hopefully today pain control (3) Type 2 diabetes mellitus without complication, without long-term current use of insulin: Code(s): E11.9 - Type 2 diabetes mellitus without complications Status: Acute Assessment and Plan: follow accu-cheks glycemic control per hospitalists Will continue to follow. Subjective Date/time seen: 05/26/23 10:00 Interval history: Follow-up for acute on chronic hyponatremia. Sodium remains relatively stable by labs yesterday and this morning; tentatively scheduled for surgery today; no apparent distress noted; no issues/events overnight or earlier this morning. Exam Narrative: General: elderly but WD/WN male in NAD Heart: normal S1 and S2; no rub Lungs: clear to auscultation Abdomen: soft, nontender, nondistended, positive bowel sounds Extremities: no cyanosis or clubbing; trace - 1+ edema Skin: warm and intact Objective Data Vital Signs Vital Signs: Vital Signs Temp Pulse Resp BP Pulse Ox O2 Del Method 05/26/23 09:06 64 05/26/23 06:40 142/82 H 05/26/23 05:52 97.3 F L 57 L 16 170/56 H 94 05/25/23 20:00 55 L 16 96 Room Air 05/25/23 21:16 97.5 F L 55 L 16 143/59 H 96 05/25/23 14:00 98.4 F 56 L 16 147/70 H 97 Intake/Output Intake/Output: Intake & Output 05/23/23 05/24/23 05/25/23 05/26/23 23:59 23:59 23:59 23:59 Intake Total 1840 530 200 500 Output Total 1575 5327 784 6033 Balance 503 -1445 -575 -1125 Meds/Results Medications: Active Medications Generic Name Dose Route Start Last Admin Trade Name Freq PRN Reason Stop Dose Admin Acetaminophen 650 mg 05/20/23 22:47 05/25/23 21:43 Acetaminophen 325 Mg Tablet PO 650 mg Q4H PRN Administration Pain 1-3 or Fever Hydrocodone Bitart/Acetaminophen 1 tab 05/21/23 13:07 05/25/23 09:42 Hydrocodone/Acetaminophen (*Crx) 5-325 Mg Tablet PO 1 tab Q6H PRN Administration Pain Rated 4-6 Amiodarone HCl 200 mg 05/21/23 09:00 05/26/23 09:06 Amiodarone Hcl 200 Mg Tablet PO 200 mg DAILY VIVIANE Administration Ascorbic Acid 1,000 mg 05/21/23 21:00 05/25/23 21:43 Ascorbic Acid 500 Mg Tablet PO 1,000 mg HS VIVIANE Administration Atorvastatin Calcium 10 mg 05/21/23 09:00 05/25/23 09:50 Atorvastatin 10 Mg Tablet PO 10 mg Q48HR VIVIANE Administration Dextrose 12.5 gm 05/20/23 22:44 Dextrose 50% 25 Gm/50 Ml Syringe IV PUSH PRN PRN Hypoglycemia Protocol Furosemide 20 mg 05/21/23 09:00 05/22/23 11:20 Furosemide 20 Mg Tablet PO 20 mg DAILY VIVIANE Administration Glucagon 1 mg 05/20/23 22:44 Glucagon For Inj 1 Mg Vial
[2023-05-26 11:27] LABS: Glucose Point of Care 101 mg/dl (65-105)
[2023-05-26] MEDS: LACTATED RINGERS 1,000 ML 30 ML IV CONT ×2 (11:45→15:53)
[2023-05-26] MEDS: TRANEXAMIC ACID 1,000MG/ISO100 1,000 MG/100 ML BAG 200 MG IVPB (11:45)
--- NOTE | 2023-05-26 12:31 | WPDANESEPPF ---
Anes - Initial Pre Proc Eval Procedure: Operation Date: 05/26/23 12:30 Proposed Procedures p Right Bipolar Hip Replacement - Farhan Navarro MD Date/Time: 05/26/23 12:31 Surgeon: Vane Rangel DO Pre Op Diagnosis: R Femoral Neck Fracture, GLF, Chronic Anticoagulat Patient Data Age: 88 Gender: M Height: 1.78 m Weight: 107.2 kg Last Vital Signs Temp 97.3 F L 05/26/23 05:52 Pulse 64 05/26/23 09:06 Resp 16 05/26/23 05:52 BP 142/82 H 05/26/23 06:40 Pulse Ox 94 05/26/23 05:52 O2 Del Method Room Air 05/25/23 20:00 Allergies Allergy/AdvReac Type Severity Reaction Status Date / Time naproxen Allergy Severe SWELLING/SO Verified 05/20/23 19:26 B Home Medications Medication Instructions Recorded Confirmed Type latanoprost 0.005 % eye drops 1 drop ophthalmic (eye) HS 03/28/20 05/21/23 History B-complex with vitamin C 1 tablet PO HS 05/09/20 05/21/23 History amiodarone 200 mg tablet 200 mg PO DAILY 05/09/20 05/21/23 History ascorbic acid (vitamin C) 1,000 mg 1 g PO HS 05/09/20 05/21/23 History tablet fexofenadine 180 mg tablet 180 mg PO DAILY 05/09/20 05/21/23 History (Allergy Relief (fexofenadine)) warfarin 5 mg tablet 5 mg PO 2XW 05/09/20 05/21/23 History warfarin 7.5 mg tablet 7.5 mg PO DAILY 05/09/20 05/21/23 History furosemide 20 mg tablet 20 mg PO DAILY 11/14/20 05/21/23 History cholecalciferol (vitamin D3) 75 75 mcg PO DAILY 05/07/21 05/21/23 History mcg (3,000 unit) tablet atorvastatin 10 mg tablet 10 mg PO EVERY OTHER DAY #90 tabs 03/19/23 05/21/23 Rx montelukast 10 mg tablet 10 mg PO QHS #90 tabs 03/19/23 05/21/23 Rx primidone 250 mg tablet 250 mg PO TID #270 tabs 03/19/23 05/21/23 Rx telmisartan 40 mg tablet 40 mg PO DAILY #90 tabs 03/19/23 05/21/23 Rx Laboratory Tests 05/25/23 05/25/23 05/25/23 17:01 17:38 20:50 WBC RBC Hgb Hct MCV MCH MCHC RDW Plt Count MPV Immature Gran % (Auto) Neut % (Auto) Lymph % (Auto) [place] % (Auto) Eos % (Auto) Baso % (Auto) Lymph # (Auto) [place] # (Auto) Eos # (Auto) Baso # (Auto) Abs Immat Gran (auto) Absolute Neuts (auto) Absolute Nucleated RBC Nucleated RBC % Sodium 133 L mmol/L (137-145) Potassium Chloride Carbon Dioxide Anion Gap BUN Creatinine Estim Creat Clear Calc Estimated GFR Glucose POC Capillary Glucose 141 H mg/dl 120 H mg/dl (65-105) (65-105) Calcium Total Bilirubin AST ALT Alkaline Phosphatase Total Protein Albumin Blood Type A Positive Antibody Screen Negative 05/26/23 05/26/23 05/26/23 06:54 07:35 11:19 WBC 4.4 L K/mm3 (4.5-10.0) RBC 3.86 L M/mm3 (4.6-6.20) Hgb 12.5 L g/dL (14.0-18.0) Hct 37.4 L % (42.0-52.0) MCV 96.9 fl (80-100) MCH 32.4 pg (26-34) MCHC 33.4 g/dl (32-36) RDW 13.2 % (11.5-14.5) Plt Count 189 k/mm3 (150-375) MPV 8.9 fl (7.4-10.4) Immature Gran % (Auto) 0.9 H % (0-0.5) Neut % (Auto) 66.9 % (45.5-73.1) Lymph % (Auto) 14.2 L % (18.3-44.2) [place] % (Auto) 11.4 H % (2.6-8.5) Eos % (Auto) 5.9 H % (0-4.4) Baso % (Auto) 0.7 % (0.2-1.2) Lymph # (Auto) 0.62 L K/mm3 (0.9-3.2) [place] # (Auto) 0.5 K/mm3 (0.1-0.6) Eos # (Auto) 0.3 K/mm3 (0-0.3) Baso # (Auto) 0.0 K/mm3 (0.0-0.1) Abs Immat Gran (auto) 0.04 H K/mm3 (0.00-0.031)
[2023-05-26] MEDS: ceFAZolin 2 GM/D5W 50 ML 2 GM/50 ML BAG IVPB ×2 (12:58→22:43)
[2023-05-26] MEDS: TRANEXAMIC ACID 1,000 MG/10 ML AMPUL 1000 MG IV PUSH (14:57)
[2023-05-26] MEDS: VANCOMYCIN HCL 1,000 MG VIAL 1000 MG TOPICAL (15:00)
--- NOTE | 2023-05-26 15:56 | W.PM.PROC2 ---
Procedure Note - Detailed Date of Procedure 05/26/23 Pre-op Diagnosis R Femoral Neck Fracture, GLF, Chronic Anticoagulat Post-op Diagnosis Same Procedure Performed RIGHT HIP HEMIARTHROPLASTY WITH BIPOLAR PROSTHESIS Surgeon Farhan Navarro MD Anesthesia General Description of Procedure THE PATIENT WAS TAKEN TO THE OPERATING ROOM IN STABLE CONDITION. HE WAS PLACED IN THE LATERAL DECUBITUS AND THE LEFT LOWER EXTREMITY WAS PREPPED AND DRAPED IN THE STERILE FASHION. INCISION WAS MADE IN THE POSTERIOR LATERAL SIDE OF THE HIP, DOWN TO THE FASCIA LAYER. THE FASCIA WAS INCISED. THE HIP WAS EXPOSED. THE SHORT EXTERNAL ROTATORS WERE EXPOSED AND THERE WAS A LARGE HEMATOMA. THE CAPSULE WAS INCISED EXPOSING THE FRACTURE. THE FEMORAL HEAD WAS REMOVED. IT MEASURED 56 MM. AN OSTEOTOMY WAS MADE TO THE FEMORAL NECK ABOUT 1 CM PROXIMAL TO THE LESSER TROCHANTER. NEXT THE FEMUR WAS PREPARED WITH INITIAL CANAL FINDER THEN SEQUENTIAL REAMING UNTIL A 13 REAMER AND BROACHING TILL A 13 BROACH FIT WELL IN 15 OF ANTE VERSION. A +0 STANDARD OFFSET NECK BIPOLAR TRIAL IN A 56 MM SHELL WAS PLACED. THE SHUCK TEST WAS EXCELLENT AND THE STABILITY IN FLEXION AND ROTATION WAS EXCELLENT. LEG LENGTHS WERE GROSSLY EQUAL. TRIALS WERE REMOVED. AN ECHO FRACTURE SIZE 13 PRESS FIT STEM WAS PLACED WITH A STANDARD OFFSET IN 15 DEG OF ANTEVERSION. A +0 BIPOLAR HEAD NECK TRIAL WAS PLACED AGAIN. THE HIP WAS TRIALED AND THE STABILITY WAS EXCELLENT WERE THE LEG LENGTHS AND THE SHUCK TEST. NEXT A BIPOLAR HEAD NECK +0 IMPLANT WITH A 56 MM COBALT CHROME SHELL WAS PLACED AND TRIALED ONCE AGAIN SHOWING EXCELLENT STABILITY AND GROSSLY EQUAL LEG LENGTHS. THE WOUND WAS IRRIGATED WITH VANCOMYCIN AND WATER FOR 3 MIN. THE CAPSULE AND THE EXTERNAL ROTATORS WERE APPROXIMATED WITH NUMBER 1 VICRYL. THE FASCIA WITH No 2 QUIL AND THE SUB CUTANEOUS LAYER WITH 2-0 VICRYL AND THEN ISAÍAS TO THE SKIN. PATIENT WAS PLACED BACK ON TO THE SUPINE POSITION AND WAS EXTUBATED. Estimated Blood Loss 300 Urine Output 350 Drains No Pathology None sent Complications No immediate complications Condition Stable Disposition PACU
[2023-05-26] MEDS: fentaNYL CITRATE INJ (*CRX) 100 MCG/2 ML VIAL 25 MCG IV PUSH ×2 (16:10→16:43)
[2023-05-26 16:16] LABS: Glucose Point of Care 130 mg/dl (65-105)
[2023-05-26] MEDS: ONDANSETRON INJ 4 MG/2 ML VIAL IV PUSH ×2 (16:19→16:40)
[2023-05-26] MEDS: diphenhydrAMINE HCl INJ 50 MG/ML VIAL 12.5 MG IV PUSH (16:40)
[2023-05-26] MEDS: SODIUM CHLORIDE 0.9% IV 1,000 ML 125 ML IV CONT (18:17)
[2023-05-26 18:24] LABS: Osmolality, Urine 298 mOsm/kg (50-1200)
[2023-05-26] MEDS: HYDROcodone/acetaminophen (*CRX) 7.5-325 MG TABLET 1 TAB PO (18:50)
[2023-05-26 19:21] LABS: Sodium 133 mmol/L (137-145)
[2023-05-27 01:22] LABS: Glucose Point of Care 101 mg/dl (65-105)
[2023-05-27] MEDS: SODIUM CHLORIDE 0.9% IV 1,000 ML 125 ML IV CONT (03:48)
[2023-05-27] MEDS: HYDROcodone/acetaminophen (*CRX) 7.5-325 MG TABLET 1 TAB PO ×2 (03:52→15:46)
[2023-05-27 04:00] VITALS: BP 139/60; BP 141/66; PULSE 64; PULSE 66; RESP 16; RESP 18; TEMP 35.9; TEMP 36.6; O2SAT 100; O2SAT 97
[2023-05-27] MEDS: ceFAZolin 2 GM/D5W 50 ML 2 GM/50 ML BAG IVPB ×2 (05:36→14:37)
[2023-05-27 06:36] LABS: Basophils Percent Auto 0.3 % (0.2-1.2); Eosinophils Absolute Auto 0.1 K/mm3 (0-0.3); Eosinophils Percent Auto 0.9 % (0-4.4); Hematocrit 33.6 % (42.0-52.0); Immature Granulocyte Absolute 0.04 K/mm3 (0.00-0.031); Immature Granulocyte Percent A 0.5 % (0-0.5); Lymphocytes Absolute Auto 0.73 K/mm3 (0.9-3.2); Lymphocytes Percent Auto 9.4 % (18.3-44.2); Mean Corpuscular HGB Conc 32.7 g/dl (32-36); Mean Corpuscular Hemoglobin 32.3 pg (26-34); Mean Corpuscular Volume 98.5 fl (80-100); Monocytes Absolute Auto 0.9 K/mm3 (0.1-0.6); Monocytes Percent Auto 12.1 % (2.6-8.5); Neutrophils Percent Auto 76.8 % (45.5-73.1); Platelet Count Result 207 k/mm3 (150-375); Red Blood Count 3.41 M/mm3 (4.6-6.20); Red Cell Distribution Width 13.2 % (11.5-14.5); White Blood Count 7.8 K/mm3 (4.5-10.0)
[2023-05-27 06:39] LABS: Alanine Aminotransferase 51 U/L (6-50); Albumin Level 2.9 g/dL (3.5-5.1); Alkaline Phosphatase 62 U/L (38-126); Anion Gap 5 mmol/L (8-16); Aspartate Amino Transferase 41 U/L (17-59); Bilirubin,Total 0.6 mg/dL (0.2-1.3); Blood Urea Nitrogen 18 mg/dL (9-20); Calcium 7.5 mg/dL (8.4-10.2); Carbon Dioxide 25 mmol/L (22-30); Chloride 101 mmol/L (98-107); Estimated CRCL calculation 71 ml/min; Estimated Glomerular Filt Rate > 60; Glucose 138 mg/dL (65-110); Potassium 3.9 mmol/L (3.4-5.0); Sodium 131 mmol/L (137-145)
[2023-05-27 06:40] LABS: INR 1.2; Prothrombin Time 15.7 Seconds (11.1-14.7)
[2023-05-27 08:19] LABS: Glucose Point of Care 109 mg/dl (65-105)
[2023-05-27] MEDS: polyethylene glycoL 3350 17 GM POWD.PACK PO (09:28)
[2023-05-27] MEDS: SENNA/DOCUSATE SODIUM TABLET 2 TAB PO ×2 (09:29→17:32)
--- NOTE | 2023-05-27 10:17 | PCNWS ---
Weekly nutritional screen. Patient is tolerating current diet with sporadic intake 0-80% over the last week. No weight loss reported. No nutritional needs at this time. NPO for hip surgery today.
[2023-05-27 10:22] VITALS: BMI 10.0
--- NOTE | 2023-05-27 10:54 | WPDANESPN ---
Anes - Prog Note Post-Op Date/Time: 05/27/23 10:54 Cardiovascular status: normal Respiratory status: normal Airway patency: baseline Mental status: baseline Post-Op hydration status: normal Vital Signs: Last Vital Signs Temp 97.9 F 05/27/23 04:00 Pulse 64 05/27/23 04:00 Resp 18 05/27/23 04:00 BP 141/66 H 05/27/23 04:00 Pulse Ox 100 05/27/23 04:00 O2 Del Method Room Air 05/27/23 08:15 O2 Flow Rate 6 05/26/23 16:00 Pain Score (VAS): 6 I/O: Intake & Output 05/26/23 05/27/23 05/27/23 23:59 07:59 15:59 Intake Total 50 1200 Output Total 350 250 Balance -300 950 Laboratory Tests 05/27/23 05:57 05/27/23 05:57 05/22/23 05/26/23 05/26/23 14:26 11:19 16:13 WBC RBC Hgb Hct MCV MCH MCHC RDW Plt Count MPV Immature Gran % (Auto) Neut % (Auto) Lymph % (Auto) [place] % (Auto) Eos % (Auto) Baso % (Auto) Lymph # (Auto) [place] # (Auto) Eos # (Auto) Baso # (Auto) Abs Immat Gran (auto) Absolute Neuts (auto) Absolute Nucleated RBC Nucleated RBC % PT INR Sodium Potassium Chloride Carbon Dioxide Anion Gap BUN Creatinine Estim Creat Clear Calc Estimated GFR Glucose POC Capillary Glucose 101 130 H Calcium Total Bilirubin AST ALT Alkaline Phosphatase Total Protein Albumin Urine Osmolality 298 05/26/23 05/26/23 05/27/23 18:58 23:50 05:57 WBC 7.8 RBC 3.41 L Hgb 11.0 L Hct 33.6 L MCV 98.5 MCH 32.3 MCHC 32.7 RDW 13.2 Plt Count 207 MPV 9.0 Immature Gran % (Auto) 0.5 Neut % (Auto) 76.8 H Lymph % (Auto) 9.4 L [place] % (Auto) 12.1 H Eos % (Auto) 0.9 Baso % (Auto) 0.3 Lymph # (Auto) 0.73 L [place] # (Auto) 0.9 H Eos # (Auto) 0.1 Baso # (Auto) 0.0 Abs Immat Gran (auto) 0.04 H Absolute Neuts (auto) 6.0 Absolute Nucleated RBC 0.0 Nucleated RBC % 0.0 PT 15.7 H INR 1.2 Sodium 133 L 131 L Potassium 3.9 Chloride 101 Carbon Dioxide 25 Anion Gap 5 L BUN 18 Creatinine 0.80 Estim Creat Clear Calc 71 Estimated GFR > 60 Glucose 138 H POC Capillary Glucose 101 Calcium 7.5 L Total Bilirubin 0.6 AST 41 ALT 51 H Alkaline Phosphatase 62 Total Protein 6.0 L Albumin 2.9 L Urine Osmolality 05/27/23 08:15 WBC RBC Hgb Hct MCV MCH MCHC RDW Plt Count MPV Immature Gran % (Auto) Neut % (Auto) Lymph % (Auto) [place] % (Auto) Eos % (Auto) Baso % (Auto) Lymph # (Auto) [place] # (Auto) Eos # (Auto) Baso # (Auto) Abs Immat Gran (auto) Absolute Neuts (auto) Absolute Nucleated RBC Nucleated RBC % PT INR Sodium Potassium Chloride Carbon Dioxide Anion Gap BUN Creatinine Estim Creat Clear Calc Estimated GFR Glucose POC Capillary Glucose 109 H Calcium Total Bilirubin AST ALT Alkaline Phosphatase Total Protein Albumin Urine Osmolality Post-procedural complaints: none Patient Feedback: Patient satisfied with anesthetic care.
[2023-05-27 11:27] LABS: Lambda Light Chain 21.9 mg/L (5.7-26.3)
--- NOTE | 2023-05-27 11:40 | PM.IMPN ---
Progress Note: A&P Assessment and Plan (1) Femoral neck fracture: Qualifiers: Encounter type: initial encounter Fracture type: closed Laterality: right Qualified Code(s): S72.001A - Fracture of unspecified part of neck of right femur, initial encounter for closed fracture Code(s): S72.009A - Fracture of unspecified part of neck of unspecified femur, initial encounter for closed fracture Status: Acute Assessment and Plan: Right femoral neck fracture with plans for bipolar hip replacement. 05/22: INR supratherapeutic despite holding warfarin for 2 days. Patient received vitamin K today and will have INR redrawn this evening with plan to repeat if necessary. Hoping to go to the operating room on 05/23. 05/23: INR has improved but patient had hypo natremia yesterday, nephrology on board today to go to the operating on 05/24 if sodiums stabilized. 05/24: Surgery again canceled today due to hyponatremia. This is made patient very upset and stressed. Patient concerned about development pressure ulcers as his grandfather due to pressure ulcers. Ordered a specialty mattress and patient has been turn and reposition frequently by nursing staff, no current signs of any pressure wounds 05/25: Patient cleared for surgery whenever OR time is available. Patient NPO today. Specialty mattress ordered. 05/26: Patient was moved to a specialty mattress. He is going to the operating room this afternoon. 05/27: Bipolar hip replacement of the right side on 05/26. He is working with therapy for strengthening and rehabilitation. (2) Hyponatremia: Code(s): E87.1 - Hypo-osmolality and hyponatremia Status: Chronic Assessment and Plan: Yesterday morning labs were significantly delayed and did not result the afternoon. At that time patient sudden acute drop in sodium level down to 117 at the lowest. Nephrology was consulted patient received 1 L saline as well 270 mL 3% saline. As of noon today sodium at 125. 05/24: Sodium down to 123 this morning, Dr. Montanez notified and additional 3% saline will be ordered. 05/25: Sodium improved after 3% saline yesterday. Level was 130 last night and 132 this morning with labs. 05/26: Stable at 130 this morning 05/27: Stable at 131 this morning (3) Chronic anticoagulation: Code(s): Z79.01 - jail (current) use of anticoagulants Status: Acute Assessment and Plan: On warfarin for chronic AFib was therapeutic on arrival at 2.1 INR. This is being held for surgery. 05/21: INR increased despite warfarin being held 05/22: INR remains supratherapeutic. Patient received oral vitamin K with plans to recheck this evening and repeat oral vitamin K if necessary. If INR makes no significant progress we will consider FFP transfusion and IV vitamin K. 05/23: INR to 1.3. Will recheck in the morning. No further intervention at this time. 05/24: INR 1.1 05/25: INR 1.0 05/27: INR 1.2 (4) Hypertensive heart disease with chronic diastolic congestive heart failure: Code(s): I11.0 - Hypertensive heart disease with heart failure; I50.32 - Chronic diastolic (congestive) heart failure Status: Acute Assessment and Plan: Vital signs stable No signs of fluid pulmonary edema dyspnea or other acute exacerbation CHF. (5) Type 2 diabetes mellitus without complication, without long-term current use of insulin: Code(s): E11.9 - Type 2 diabetes mellitus without complications Status: Acute Assessment and Plan: Diet controlled at home. On low-dose corrective insulin while hospitalized. Previously metformin this was discontinued due to hypoglycemia. (6) Essential tremor: Code(s): G25.0 - Essential tremor Status: Acute Assessment and Plan: On primidone t.i.d., patient confirms not parkinsonian. (7) Ground-level fall: Code(s): W18.30XA - Fall on same level, unspecified, initial encounter Status: Acute Assessment and Plan: [facility]
[2023-05-27 11:51] LABS: Albumin 2.9 g/dL (3.8-4.8); Alpha 1 Globulin 0.4 g/dL (0.2-0.3); Alpha 2 Globulin 0.7 g/dL (0.5-0.9); Beta 1 Globulin 0.4 g/dL (0.4-0.6); Gamma Globulin 0.7 g/dL (0.8-1.7); Protein, Total 5.4 g/dL (6.1-8.1)
--- NOTE | 2023-05-27 11:56 | PCPTNOTE ---
On 05/27/23, the student, DEBRA Brar, provided care and completed [facility] documentation on this patient. I have reviewed the student's documentation and agree with the findings.
[2023-05-27 12:24] LABS: Glucose Point of Care 149 mg/dl (65-105)
--- NOTE | 2023-05-27 13:25 | P.PNNP_ITS ---
Progress Note: A&P Assessment and Plan (1) Hyponatremia: Code(s): E87.1 - Hypo-osmolality and hyponatremia Status: Chronic Assessment and Plan: * acute on chronic * sodium seems to fluctuate ~ 129 - 135mmol/L * evaluation to date: * TSH okay * cortisol lowish but stim test okay * CXR unremarkable * serum/urine osmolality and protein electrophoresis pending * risk factors for low sodium: * CHF (with need for diuretics leading possible chronic pre-renal azotemia * acute pain (from fracture) * pain medications * known history of COPD * pancreatic lesion (?) * on fluid restriction * follow serial sodium levels (2) Femoral neck fracture: Qualifiers: Encounter type: initial encounter Fracture type: closed Laterality: right Qualified Code(s): S72.001A - Fracture of unspecified part of neck of right femur, initial encounter for closed fracture Code(s): S72.009A - Fracture of unspecified part of neck of unspecified femur, initial encounter for closed fracture Status: Acute Assessment and Plan: * as noted by admission imaging * Orthopedics following * s/p right hip hemiarthroplasty with bipolar prosthesis (on 05/26/23) * pain control * PT/OT as tolerated (3) Type 2 diabetes mellitus without complication, without long-term current use of insulin: Code(s): E11.9 - Type 2 diabetes mellitus without complications Status: Acute Assessment and Plan: * follow accu-cheks * glycemic control per hospitalists Will continue to follow. Subjective Date/time seen: 05/27/23 13:25 Interval history: Follow-up for acute on chronic hyponatremia. Sodium remains relatively stable by labs this AM; s/p surgical intervention yesterday and tolerated procedure reasonably well; pain control seems satisfactory; no acute distress noted. Exam Narrative: General: elderly but WD/WN male in NAD Heart: normal S1 and S2; no rub Lungs: clear to auscultation Abdomen: soft, nontender, nondistended, positive bowel sounds Extremities: no cyanosis or clubbing; trace edema Skin: no rash Objective Data Vital Signs Vital Signs: Vital Signs Temp Pulse Resp BP Pulse Ox O2 Del Method 05/27/23 13:25 97.8 F 65 16 138/64 99 05/27/23 09:00 Room Air 05/27/23 10:22 Room Air 05/27/23 08:15 Room Air 05/27/23 04:00 97.9 F 64 18 141/66 H 100 05/27/23 04:00 96.7 F L 66 16 139/60 97 05/26/23 19:20 96.6 F L 82 14 145/69 H 99 05/26/23 20:00 79 16 100 Room Air Intake/Output Intake/Output: Intake & Output 05/24/23 05/25/23 05/26/23 05/27/23 23:59 23:59 23:59 23:59 Intake Total 530 705 301 2601 Output Total 4883 369 3362 900 [facility] -[phone] 171 Meds/Results Medications: Active Medications Generic Name Dose Route Start Last Admin Trade Name Freq PRN Reason Stop Dose Admin Acetaminophen 650 mg 05/26/23 17:14 Acetaminophen 325 Mg Tablet PO Q6H PRN Mild Pain (1-3) or Fever Hydrocodone Bitart/Acetaminophen 1 tab 05/26/23 17:14 05/27/23 15:46 Hydrocodone/Acetaminophen (*Crx) 7.5-325 Mg Tablet PO 1 tab
--- NOTE | 2023-05-27 13:25 | PM.PNNEP ---
Progress Note: A&P Assessment and Plan (1) Hyponatremia: Code(s): E87.1 - Hypo-osmolality and hyponatremia Status: Chronic Assessment and Plan: acute on chronic sodium seems to fluctuate ~ 129 - 135mmol/L evaluation to date: TSH okay cortisol lowish but stim test okay CXR unremarkable serum/urine osmolality and protein electrophoresis pending risk factors for low sodium: CHF (with need for diuretics leading possible chronic pre-renal azotemia acute pain (from fracture) pain medications known history of COPD pancreatic lesion (?) on fluid restriction follow serial sodium levels (2) Femoral neck fracture: Qualifiers: Encounter type: initial encounter Fracture type: closed Laterality: right Qualified Code(s): S72.001A - Fracture of unspecified part of neck of right femur, initial encounter for closed fracture Code(s): S72.009A - Fracture of unspecified part of neck of unspecified femur, initial encounter for closed fracture Status: Acute Assessment and Plan: as noted by admission imaging Orthopedics following s/p right hip hemiarthroplasty with bipolar prosthesis (on 05/26/23) pain control PT/OT as tolerated (3) Type 2 diabetes mellitus without complication, without long-term current use of insulin: Code(s): E11.9 - Type 2 diabetes mellitus without complications Status: Acute Assessment and Plan: follow accu-cheks glycemic control per hospitalists Will continue to follow. Subjective Date/time seen: 05/27/23 13:25 Interval history: Follow-up for acute on chronic hyponatremia. Sodium remains relatively stable by labs this AM; s/p surgical intervention yesterday and tolerated procedure reasonably well; pain control seems satisfactory; no acute distress noted. Exam Narrative: General: elderly but WD/WN male in NAD Heart: normal S1 and S2; no rub Lungs: clear to auscultation Abdomen: soft, nontender, nondistended, positive bowel sounds Extremities: no cyanosis or clubbing; trace edema Skin: no rash Objective Data Vital Signs Vital Signs: Vital Signs Temp Pulse Resp BP Pulse Ox O2 Del Method 05/27/23 13:25 97.8 F 65 16 138/64 99 05/27/23 09:00 Room Air 05/27/23 10:22 Room Air 05/27/23 08:15 Room Air 05/27/23 04:00 97.9 F 64 18 141/66 H 100 05/27/23 04:00 96.7 F L 66 16 139/60 97 05/26/23 19:20 96.6 F L 82 14 145/69 H 99 05/26/23 20:00 79 16 100 Room Air Intake/Output Intake/Output: Intake & Output 05/24/23 05/25/23 05/26/23 05/27/23 23:59 23:59 23:59 23:59 Intake Total 530 386 885 1301 Output Total 5710 694 5373 900 [facility] -[phone] 1710 Meds/Results Medications: Active Medications Generic Name Dose Route Start Last Admin Trade Name Freq PRN Reason Stop Dose Admin Acetaminophen 650 mg 05/26/23 17:14 Acetaminophen 325 Mg Tablet PO Q6H PRN Mild Pain (1-3) or Fever Hydrocodone Bitart/Acetaminophen 1 tab 05/26/23 17:14 05/27/23 15:46 Hydrocodone/Acetaminophen (*Crx) 7.5-325 Mg Tablet PO 1 tab Q3H PRN Administration Pain Rated 4-6 Hydrocodone Bitart/Acetaminophen 2 tab 05/26/23 17:14 Hydrocodone/Acetaminophen (*Crx) 7.5-325 Mg Tablet PO Q6H PRN Pain Rated 7-10 Amiodarone HCl 200 mg 05/27/23 14:25 05/27/23 15:31 Amiodarone Hcl 200 Mg Tablet PO 200 mg DAILY VIVIANE Administration Ascorbic Acid 1,000 mg 05/27/23 21:00 Ascorbic Acid 500 Mg Tablet PO [facility] Atorvastatin Calcium 10 mg 05/28/23 09:00 Atorvastatin 10 Mg Tablet PO SuTuThSa@0900 [facility] Dextrose 12.5 gm 05/20/23 22:44 Dextrose 50% 25 Gm/50 Ml Syringe IV PUSH PRN PRN Hypoglycemia Protocol Diazepam 5 mg 05/26/23 17:14 05/27/23 17:39 Diazepam (*Crx) 5 Mg Tablet PO 5 mg Q8H PRN Administration Muscle Spasm Glucagon 1 mg 05/20/23 22:44
[2023-05-27 14:25] VITALS: BP 138/64; PULSE 65; RESP 16; TEMP 36.6; O2SAT 99
[2023-05-27] MEDS: CHOLECALCIFEROL 1,000 UNITS TABLET 3000 UNITS PO (15:30)
[2023-05-27 15:31] VITALS: PULSE 70
[2023-05-27] MEDS: AMIODARONE HCL 200 MG TABLET PO (15:31)
[2023-05-27] MEDS: TELMISARTAN 40 MG TABLET PO (15:37)
[2023-05-27 16:48] LABS: Glucose Point of Care 155 mg/dl (65-105)
--- NOTE | 2023-05-27 16:55 | PM.PNORT ---
Progress Note: A&P Assessment and Plan (1) Femoral neck fracture: Qualifiers: Encounter type: initial encounter Fracture type: closed Laterality: right Qualified Code(s): S72.001A - Fracture of unspecified part of neck of right femur, initial encounter for closed fracture Code(s): S72.009A - Fracture of unspecified part of neck of unspecified femur, initial encounter for closed fracture Status: Acute Assessment and Plan: POD 1 DOING WELL. CONTINUE PT Subjective Subjective Date/Time Seen: 05/27/23 16:55 Interval history: POD 1 DOING WELL. NO CALF PAIN. UP IN CHAIR TODAY Exam Extrem: Other: VSS AFEBRILE DRESSING DRY NV INTACT CALF SOFT NON TENDER NEG HOMANS SOUND, THIGHT SOFT NON TENDER. Objective Data Vital Signs Vital Signs: Vital Signs - 24 hr 05/26/23 17:00 05/26/23 17:10 05/26/23 17:14 Temperature 35.4 C L Pulse Rate 85 85 84 Respiratory Rate 20 20 14 Blood Pressure 164/83 H 154/83 H 130/62 Pulse Oximetry 94 94 100 Oxygen Delivery Room Air Room Air 05/26/23 17:29 05/26/23 17:59 05/26/23 20:00 Temperature 35.4 C L 35.7 C L Pulse Rate 82 79 79 Respiratory Rate 16 16 16 Blood Pressure 156/76 H 139/62 Pulse Oximetry 100 100 100 Oxygen Delivery Room Air 05/26/23 19:20 05/27/23 04:00 05/27/23 04:00 Temperature 35.9 C L 35.9 C L 36.6 C Pulse Rate 82 66 64 Respiratory Rate 14 16 18 Blood Pressure 145/69 H 139/60 141/66 H Pulse Oximetry 99 97 100 Oxygen Delivery 05/27/23 08:15 05/27/23 10:22 05/27/23 09:00 Temperature Pulse Rate Respiratory Rate Blood Pressure Pulse Oximetry Oxygen Delivery Room Air Room Air Room Air 05/27/23 15:31 05/27/23 14:25 Temperature 36.6 C Pulse Rate 70 65 Respiratory Rate 16 Blood Pressure 138/64 Pulse Oximetry 99 Oxygen Delivery Intake/Output Intake/Output: Intake & Output 05/24/23 05/25/23 05/26/23 05/27/23 23:59 23:59 23:59 23:59 Intake Total 530 442 850 1257 Output Total 5098 017 9663 250 [facility] [place] [phone] 2120 Meds/Results Medications: Active Medications Generic Name Dose Route Start Last Admin Trade Name Maru PRN Reason Stop Dose Admin Acetaminophen 650 mg 05/26/23 17:14 Acetaminophen 325 Mg Tablet PO Q6H PRN Mild Pain (1-3) or Fever Hydrocodone Bitart/Acetaminophen 1 tab 05/26/23 17:14 05/27/23 15:46 Hydrocodone/Acetaminophen (*Crx) 7.5-325 Mg Tablet PO 1 tab Q3H PRN Administration Pain Rated 4-6 Hydrocodone Bitart/Acetaminophen 2 tab 05/26/23 17:14 Hydrocodone/Acetaminophen (*Crx) 7.5-325 Mg Tablet PO Q6H PRN Pain Rated 7-10 Amiodarone HCl 200 mg 05/27/23 14:25 05/27/23 15:31 Amiodarone Hcl 200 Mg Tablet PO 200 mg DAILY VIVIANE Administration Ascorbic Acid 1,000 mg 05/27/23 21:00 Ascorbic Acid 500 Mg Tablet PO HS [facility] Atorvastatin Calcium 10 mg 05/28/23 09:00 Atorvastatin 10 Mg Tablet PO [id number]@0900 [facility] Dextrose 12.5 gm 05/20/23 22:44 Dextrose 50% 25 Gm/50 Ml Syringe IV PUSH PRN PRN Hypoglycemia Protocol Diazepam 5 mg 05/26/23 17:14 Diazepam (*Crx) 5 Mg Tablet PO Q8H PRN Muscle Spasm Glucagon 1 mg 05/20/23 22:44 Glucagon For Inj 1 Mg Vial IM PRN PRN Hypoglycemia Protocol Glucose 15 gm 05/20/23 22:44 Glucose Oral Gel 15 Gm Of Glucse In 37.5 Gm Tube PO PRN PRN Hypoglycemia Protocol Insulin Aspart 2 - 5 units 05/21/23 08:00 05/27/23 12:28 Insulin Aspart (*Bkc) 100 Units/Ml SUB-Q Not Given [facility] Protocol Latanoprost 1 drop 05/27/23 21:00 Latanoprost 0.005% Op Soln 2.5 Ml Btl EACH EYE [facility] Loratadine 10 mg 05/27/23 14:25 Loratadine 10 Mg Tablet PO DAILY [facility] Montelukast Sodium 10 mg 05/27/23 21:00 Montelukast Sodium 10 Mg Tablet PO QHS [facility] Naloxone HCl 0.1 mg 05/26/23 17:14 Naloxone Hcl 0.4 Mg/Ml Vial IV PUSH Q2M DC
[2023-05-27] MEDS: LORATADINE 10 MG TABLET PO (17:32)
[2023-05-27] MEDS: PRIMIDONE 250 MG TABLET PO (17:33)
[2023-05-27] MEDS: WARFARIN (*PBKC) 7.5 MG TABLET PO (17:34)
[2023-05-27] MEDS: diazePAM (*CRX) 5 MG TABLET PO (17:39)
[2023-05-27 18:34] VITALS: BP 140/62; PULSE 65; RESP 16; TEMP 36.4; O2SAT 100
--- NOTE | 2023-05-27 18:50 | PC.NURSE ---
I have reviewed and agree with Ashley MCCORMACK's charting.
[2023-05-27] MEDS: LATANOPROST 0.005% OP SOLN 2.5 ML BTL 1 DROP EACH EYE (20:20)
[2023-05-27] MEDS: VITAMIN B COMPLEX/VIT C CAPSULE 1 EACH PO (20:21)
[2023-05-27] MEDS: ASCORBIC ACID 500 MG TABLET 1000 MG PO (20:23)
[2023-05-27] MEDS: MONTELUKAST SODIUM 10 MG TABLET PO (20:23)
[2023-05-27 20:30] VITALS: PULSE 65; RESP 16; O2SAT 100
[2023-05-27 21:12] LABS: Glucose Point of Care 110 mg/dl (65-105)
[2023-05-27 22:00] VITALS: BP 132/54; PULSE 67; RESP 20; TEMP 36.7; O2SAT 97
[2023-05-28 02:00] VITALS: PULSE 69; RESP 20; TEMP 36.6; O2SAT 95
[2023-05-28 06:00] VITALS: BP 156/66; PULSE 76; RESP 16; TEMP 36.3; O2SAT 98
[2023-05-28 06:17] LABS: Basophils Percent Auto 0.3 % (0.2-1.2); Eosinophils Absolute Auto 0.2 K/mm3 (0-0.3); Eosinophils Percent Auto 1.7 % (0-4.4); Hematocrit 31.2 % (42.0-52.0); Hemoglobin 10.5 g/dL (14.0-18.0); Immature Granulocyte Percent A 1.1 % (0-0.5); Lymphocytes Absolute Auto 0.95 K/mm3 (0.9-3.2); Lymphocytes Percent Auto 10.9 % (18.3-44.2); Mean Corpuscular HGB Conc 33.7 g/dl (32-36); Mean Corpuscular Hemoglobin 32.9 pg (26-34); Mean Corpuscular Volume 97.8 fl (80-100); Mean Platelet Volume 8.9 fl (7.4-10.4); Monocytes Absolute Auto 0.9 K/mm3 (0.1-0.6); Monocytes Percent Auto 10.2 % (2.6-8.5); Neutrophils Absolute Auto 6.6 K/mm3 (1.3-6.7); Neutrophils Percent Auto 75.8 % (45.5-73.1); Platelet Count Result 232 k/mm3 (150-375); Red Blood Count 3.19 M/mm3 (4.6-6.20); Red Cell Distribution Width 13.4 % (11.5-14.5); White Blood Count 8.7 K/mm3 (4.5-10.0)
[2023-05-28 06:25] LABS: INR 1.2; Prothrombin Time 16.1 Seconds (11.1-14.7)
[2023-05-28 06:30] LABS: Alanine Aminotransferase 32 U/L (6-50); Albumin Level 2.8 g/dL (3.5-5.1); Alkaline Phosphatase 57 U/L (38-126); Anion Gap -1 mmol/L (8-16); Aspartate Amino Transferase 36 U/L (17-59); Bilirubin,Total 0.5 mg/dL (0.2-1.3); Blood Urea Nitrogen 15 mg/dL (9-20); Calcium 7.6 mg/dL (8.4-10.2); Carbon Dioxide 27 mmol/L (22-30); Chloride 101 mmol/L (98-107); Estimated CRCL calculation 71 ml/min; Estimated Glomerular Filt Rate > 60; Glucose 121 mg/dL (65-110); Potassium 3.4 mmol/L (3.4-5.0); Sodium 127 mmol/L (137-145)
[2023-05-28] MEDS: HYDROcodone/acetaminophen (*CRX) 7.5-325 MG TABLET 1 TAB PO (06:32)
[2023-05-28] MEDS: diazePAM (*CRX) 5 MG TABLET PO ×2 (06:33→17:33)
[2023-05-28 07:59] LABS: Glucose Point of Care 120 mg/dl (65-105)
[2023-05-28] MEDS: CHOLECALCIFEROL 1,000 UNITS TABLET 3000 UNITS PO (10:02)
[2023-05-28] MEDS: TELMISARTAN 40 MG TABLET PO (10:02)
[2023-05-28] MEDS: PRIMIDONE 250 MG TABLET PO ×3 (10:04→17:09)
[2023-05-28] MEDS: polyethylene glycoL 3350 17 GM POWD.PACK PO (10:04)
[2023-05-28] MEDS: SENNA/DOCUSATE SODIUM TABLET 2 TAB PO ×2 (10:04→17:10)
[2023-05-28 10:05] VITALS: PULSE 76
[2023-05-28] MEDS: AMIODARONE HCL 200 MG TABLET PO (10:05)
[2023-05-28] MEDS: LORATADINE 10 MG TABLET PO (10:05)
--- NOTE | 2023-05-28 10:10 | PM.IMPN ---
Progress Note: A&P Assessment and Plan (1) Hyponatremia: Code(s): E87.1 - Hypo-osmolality and hyponatremia Status: Chronic Assessment and Plan: acute on chronic sodium seems to fluctuate ~ 129 - 135mmol/L evaluation to date: TSH okay cortisol lowish but stim test okay CXR unremarkable serum/urine osmolality and protein electrophoresis pending risk factors for low sodium: CHF (with need for diuretics leading possible chronic pre-renal azotemia acute pain (from fracture) pain medications known history of COPD pancreatic lesion (?) on fluid restriction follow serial sodium levels (2) Femoral neck fracture: Qualifiers: Encounter type: initial encounter Fracture type: closed Laterality: right Qualified Code(s): S72.001A - Fracture of unspecified part of neck of right femur, initial encounter for closed fracture Code(s): S72.009A - Fracture of unspecified part of neck of unspecified femur, initial encounter for closed fracture Status: Acute Assessment and Plan: Right femoral neck fracture with plans for bipolar hip replacement. 05/22: INR supratherapeutic despite holding warfarin for 2 days. Patient received vitamin K today and will have INR redrawn this evening with plan to repeat if necessary. Hoping to go to the operating room on 05/23. 05/23: INR has improved but patient had hypo natremia yesterday, nephrology on board today to go to the operating on 05/24 if sodiums stabilized. 05/24: Surgery again canceled today due to hyponatremia. This is made patient very upset and stressed. Patient concerned about development pressure ulcers as his grandfather due to pressure ulcers. Ordered a specialty mattress and patient has been turn and reposition frequently by nursing staff, no current signs of any pressure wounds 05/25: Patient cleared for surgery whenever OR time is available. Patient NPO today. Specialty mattress ordered. 05/26: Patient was moved to a specialty mattress. He is going to the operating room this afternoon. 05/27: Bipolar hip replacement of the right side on 05/26. He is working with therapy for strengthening and rehabilitation. 05/28: Patient working with therapy and strength is increasing well. POD 2. (3) Chronic anticoagulation: Code(s): Z79.01 - emt intermediate (current) use of anticoagulants Status: Acute Assessment and Plan: On warfarin for chronic AFib was therapeutic on arrival at 2.1 INR. This is being held for surgery. 05/21: INR increased despite warfarin being held 05/22: INR remains supratherapeutic. Patient received oral vitamin K with plans to recheck this evening and repeat oral vitamin K if necessary. If INR makes no significant progress we will consider FFP transfusion and IV vitamin K. 05/23: INR to 1.3. Will recheck in the morning. No further intervention at this time. 05/24: INR 1.1 05/25: INR 1.0 05/27: INR 1.2 05/28: INR 1.2 (4) Hypertensive heart disease with chronic diastolic congestive heart failure: Code(s): I11.0 - Hypertensive heart disease with heart failure; I50.32 - Chronic diastolic (congestive) heart failure Status: Acute Assessment and Plan: Vital signs stable No signs of fluid pulmonary edema dyspnea or other acute exacerbation CHF. (5) Type 2 diabetes mellitus without complication, without long-term current use of insulin: Code(s): E11.9 - Type 2 diabetes mellitus without complications Status: Acute Assessment and Plan: Diet controlled at home. On low-dose corrective insulin while hospitalized. Previously metformin this was discontinued due to hypoglycemia. (6) Essential tremor: Code(s): G25.0 - Essential tremor Status: Acute Assessment and Plan: On primidone t.i.d., patient confirms not parkinsonian. (7) Ground-level fall: Code(s): W18.30XA - Fall on same level, unspecified, initial encounter Status: Acute Assessment and Plan:
[2023-05-28] MEDS: ATORVASTATIN 10 MG TABLET PO (10:27)
[2023-05-28] MEDS: SODIUM CHLORIDE 1 GM TABLET PO ×2 (11:32→17:10)
[2023-05-28 11:57] LABS: Glucose Point of Care 124 mg/dl (65-105)
--- NOTE | 2023-05-28 12:38 | P.PNNP_ITS ---
Progress Note: A&P Assessment and Plan (1) Hyponatremia: Code(s): E87.1 - Hypo-osmolality and hyponatremia Status: Chronic Assessment and Plan: * acute on chronic * sodium seems to fluctuate ~ 129 - 135mmol/L * evaluation to date: * TSH okay * cortisol lowish but stim test okay * CXR unremarkable * serum/urine osmolality and protein electrophoresis pending * risk factors for low sodium: * CHF (with need for diuretics leading possible chronic pre-renal azotemia * acute pain (from fracture) * pain medications * known history of COPD * pancreatic lesion (?) * on fluid restriction * will add sodium tablets * follow serial sodium levels (2) Femoral neck fracture: Qualifiers: Encounter type: initial encounter Fracture type: closed Laterality: right Qualified Code(s): S72.001A - Fracture of unspecified part of neck of right femur, initial encounter for closed fracture Code(s): S72.009A - Fracture of unspecified part of neck of unspecified femur, initial encounter for closed fracture Status: Acute Assessment and Plan: * as noted by admission imaging * Orthopedics following * s/p right hip hemiarthroplasty with bipolar prosthesis (on 05/26/23) * pain control * PT/OT as tolerated (3) Type 2 diabetes mellitus without complication, without long-term current use of insulin: Code(s): E11.9 - Type 2 diabetes mellitus without complications Status: Acute Assessment and Plan: * follow accu-cheks * glycemic control per hospitalists Will continue to follow. Subjective Date/time seen: 05/28/23 12:38 Interval history: Follow-up for acute on chronic hyponatremia. Sodium dropped at a bit as noted by AM labs today; pain control seems satisfactory; as always, remains in good spirits at the time of my visit; no other issues/events overnight or earlier this morning; no apparent distress voiced currently. Exam Narrative: General: elderly but WD/WN male in NAD Heart: normal S1 and S2; no rub Lungs: clear to auscultation Abdomen: soft, nontender, nondistended, positive bowel sounds Extremities: no cyanosis or clubbing; trace edema Skin: warm and dry Objective Data Vital Signs Vital Signs: Vital Signs Temp Pulse Resp BP Pulse Ox O2 Del Method 05/28/23 10:05 76 05/28/23 06:00 97.4 F L 76 16 156/66 H 98 05/28/23 02:00 97.8 F 69 20 95 05/27/23 22:00 98.1 F 67 20 132/54 L 97 05/27/23 20:30 65 16 100 Room Air 05/27/23 18:34 97.6 F 65 16 140/62 100 05/27/23 14:25 97.8 F 65 16 138/64 99 05/27/23 15:31 70 Intake/Output Intake/Output: Intake & Output 05/25/23 05/26/23 05/27/23 05/28/23 23:59 23:59 23:59 23:59 Intake Total 075 938 3005 120 Output Total 775 4311 295 [facility] -[phone] 120 Meds/Results Medications: Active Medications Generic Name Dose Route Start Last Admin Trade Name Freq PRN Reason Stop Dose Admin Acetaminophen 650 mg 05/26/23 17:14 Acetaminophen 325 Mg Tablet PO Q6H PRN Mild Pain (1-3) or Fever Hydrocodone Bitart/Acetaminophen 1 tab 05/26/23 17:14 05/19
--- NOTE | 2023-05-28 12:38 | PM.PNNEP ---
Progress Note: A&P Assessment and Plan (1) Hyponatremia: Code(s): E87.1 - Hypo-osmolality and hyponatremia Status: Chronic Assessment and Plan: acute on chronic sodium seems to fluctuate ~ 129 - 135mmol/L evaluation to date: TSH okay cortisol lowish but stim test okay CXR unremarkable serum/urine osmolality and protein electrophoresis pending risk factors for low sodium: CHF (with need for diuretics leading possible chronic pre-renal azotemia acute pain (from fracture) pain medications known history of COPD pancreatic lesion (?) on fluid restriction will add sodium tablets follow serial sodium levels (2) Femoral neck fracture: Qualifiers: Encounter type: initial encounter Fracture type: closed Laterality: right Qualified Code(s): S72.001A - Fracture of unspecified part of neck of right femur, initial encounter for closed fracture Code(s): S72.009A - Fracture of unspecified part of neck of unspecified femur, initial encounter for closed fracture Status: Acute Assessment and Plan: as noted by admission imaging Orthopedics following s/p right hip hemiarthroplasty with bipolar prosthesis (on 05/26/23) pain control PT/OT as tolerated (3) Type 2 diabetes mellitus without complication, without long-term current use of insulin: Code(s): E11.9 - Type 2 diabetes mellitus without complications Status: Acute Assessment and Plan: follow accu-cheks glycemic control per hospitalists Will continue to follow. Subjective Date/time seen: 05/28/23 12:38 Interval history: Follow-up for acute on chronic hyponatremia. Sodium dropped at a bit as noted by AM labs today; pain control seems satisfactory; as always, remains in good spirits at the time of my visit; no other issues/events overnight or earlier this morning; no apparent distress voiced currently. Exam Narrative: General: elderly but WD/WN male in NAD Heart: normal S1 and S2; no rub Lungs: clear to auscultation Abdomen: soft, nontender, nondistended, positive bowel sounds Extremities: no cyanosis or clubbing; trace edema Skin: warm and dry Objective Data Vital Signs Vital Signs: Vital Signs Temp Pulse Resp BP Pulse Ox O2 Del Method 05/28/23 10:05 76 05/28/23 06:00 97.4 F L 76 16 156/66 H 98 05/28/23 02:00 97.8 F 69 20 95 05/27/23 22:00 98.1 F 67 20 132/54 L 97 05/27/23 20:30 65 16 100 Room Air 05/27/23 18:34 97.6 F 65 16 140/62 100 05/27/23 14:25 97.8 F 65 16 138/64 99 05/27/23 15:31 70 Intake/Output Intake/Output: Intake & Output 05/25/23 05/26/23 05/27/23 05/28/23 23:59 23:59 23:59 23:59 Intake Total 382 287 8388 120 Output Total 775 1975 900 Balance -579 -5853 1710 120 Meds/Results Medications: Active Medications Generic Name Dose Route Start Last Admin Trade Name Freq PRN Reason Stop Dose Admin Acetaminophen 650 mg 05/26/23 17:14 Acetaminophen 325 Mg Tablet PO Q6H PRN Mild Pain (1-3) or Fever Hydrocodone Bitart/Acetaminophen 1 tab 05/26/23 17:14 05/28/23 06:32 Hydrocodone/Acetaminophen (*Crx) 7.5-325 Mg Tablet PO 1 tab Q3H PRN Administration Pain Rated 4-6 Hydrocodone Bitart/Acetaminophen 2 tab 05/26/23 17:14 Hydrocodone/Acetaminophen (*Crx) 7.5-325 Mg Tablet PO Q6H PRN Pain Rated 7-10 Amiodarone HCl 200 mg 05/27/23 14:25 05/28/23 10:05 Amiodarone Hcl 200 Mg Tablet PO 200 mg DAILY VIVIANE Administration Ascorbic Acid 1,000 mg 05/27/23 21:00 05/27/23 20:23 Ascorbic Acid 500 Mg Tablet PO 1,000 mg HS VIVIANE Administration Atorvastatin Calcium 10 mg 05/28/23 09:00 05/28/23 10:27 Atorvastatin 10 Mg Tablet PO 10 mg SuTuThSa@0900 VIVIANE Administration Dextrose 12.5 gm 05/20/23 22:44 Dextrose 50% 25 Gm/50 Ml Syringe IV PUSH PRN PRN Hypoglycemia Protocol Diazepam 5 mg
[2023-05-28 13:01] LABS: Chloride Rand Ur 47 mmol/L (32-290); Chloride/Creatinine Rand Ur 62 (23-275); Creatinine Random Urine 76 mg/dL (20-320)
[2023-05-28 14:45] VITALS: BP 139/68; PULSE 66; RESP 18; TEMP 35.9; O2SAT 97
--- NOTE | 2023-05-28 16:09 | PM.PNORT ---
Progress Note: A&P Assessment and Plan (1) Femoral neck fracture: Qualifiers: Encounter type: initial encounter Fracture type: closed Laterality: right Qualified Code(s): S72.001A - Fracture of unspecified part of neck of right femur, initial encounter for closed fracture Code(s): S72.009A - Fracture of unspecified part of neck of unspecified femur, initial encounter for closed fracture Status: Acute Assessment and Plan: POD 2 DOING WELL. CONTINUE PT. SNF OR REHAB ONCE STABLE. HE WILL F/U IN [facility] IN 8 WEEKS Subjective Subjective Date/Time Seen: 05/28/23 16:09 Interval history: POD 2 DOING WELL. PAIN CONTROLLED. 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 Objective Data Vital Signs Vital Signs: Vital Signs - 24 hr 05/27/23 18:34 05/27/23 20:30 05/27/23 22:00 Temperature 36.4 C 36.7 C Pulse Rate 65 65 67 Respiratory Rate 16 16 20 Blood Pressure 140/62 132/54 L Pulse Oximetry 100 100 97 Oxygen Delivery Room Air 05/28/23 02:00 05/28/23 06:00 05/28/23 10:05 Temperature 36.6 C 36.3 C L Pulse Rate 69 76 76 Respiratory Rate 20 16 Blood Pressure 156/66 H Pulse Oximetry 95 98 Oxygen Delivery 05/28/23 10:00 05/28/23 14:45 Temperature 35.9 C L Pulse Rate 66 Respiratory Rate 18 Blood Pressure 139/68 Pulse Oximetry 97 Oxygen Delivery Room Air Intake/Output Intake/Output: Intake & Output 05/25/23 05/26/23 05/27/23 05/28/23 23:59 23:59 23:59 23:59 Intake Total 155 934 7989 600 Output Total 775 3269 900 Balance -579 -9860 1710 600 Meds/Results Medications: Active Medications Generic Name Dose Route Start Last Admin Trade Name Freq PRN Reason Stop Dose Admin Acetaminophen 650 mg 05/26/23 17:14 Acetaminophen 325 Mg Tablet PO Q6H PRN Mild Pain (1-3) or Fever Hydrocodone Bitart/Acetaminophen 1 tab 05/26/23 17:14 05/28/23 06:32 Hydrocodone/Acetaminophen (*Crx) 7.5-325 Mg Tablet PO 1 tab Q3H PRN Administration Pain Rated 4-6 Hydrocodone Bitart/Acetaminophen 2 tab 05/26/23 17:14 Hydrocodone/Acetaminophen (*Crx) 7.5-325 Mg Tablet PO Q6H PRN Pain Rated 7-10 Amiodarone HCl 200 mg 05/27/23 14:25 05/28/23 10:05 Amiodarone Hcl 200 Mg Tablet PO 200 mg DAILY VIVIANE Administration Ascorbic Acid 1,000 mg 05/27/23 21:00 05/27/23 20:23 Ascorbic Acid 500 Mg Tablet PO 1,000 mg HS VIVIANE Administration Atorvastatin Calcium 10 mg 05/28/23 09:00 05/28/23 10:27 Atorvastatin 10 Mg Tablet PO 10 mg [id number] VIVIANE Administration Dextrose 12.5 gm 05/20/23 22:44 Dextrose 50% 25 Gm/50 Ml Syringe IV PUSH PRN PRN Hypoglycemia Protocol Diazepam 5 mg 05/26/23 17:14 05/28/23 06:33 Diazepam (*Crx) 5 Mg Tablet PO 5 mg Q8H PRN Administration Muscle Spasm Glucagon 1 mg 05/20/23 22:44 Glucagon For Inj 1 Mg Vial IM PRN PRN Hypoglycemia Protocol Glucose 15 gm 05/20/23 22:44 Glucose Oral Gel 15 Gm Of Glucse In 37.5 Gm Tube PO PRN PRN Hypoglycemia Protocol Insulin Aspart 2 - 5 units 05/21/23 08:00 05/28/23 12:41 Insulin Aspart (*Bkc) 100 Units/Ml SUB-Q Not Given TIDWM [facility] Protocol Latanoprost 1 drop 05/27/23 21:00 05/27/23 20:20 Latanoprost 0.005% Op Soln 2.5 Ml Btl EACH EYE 1 drop HS VIVIANE Administration Loratadine 10 mg 05/27/23 14:25 05/28/23 10:05 Loratadine 10 Mg Tablet PO 10 mg DAILY VIVIANE Administration Montelukast Sodium 10 mg 05/27/23 21:00 05/27/23 20:23 Montelukast Sodium 10 Mg Tablet PO 10 mg QHS VIVIANE Administration Naloxone HCl 0.1 mg 05/26/23 17:14 Naloxone Hcl 0.4 Mg/Ml Vial IV PUSH Q2M PRN Opiate Reversal Ondansetron HCl 4 mg 05/26/23 17:14 Ondansetron Inj 4 Mg/2 Ml Vial IV PUSH Q4H PRN Nausea And Vomiting Polyethylene Glycol 17 gm 05/27/23 09:0
[2023-05-28 17:04] LABS: Glucose Point of Care 128 mg/dl (65-105)
[2023-05-28] MEDS: WARFARIN (*PBKC) 5 MG TABLET PO (17:10)
--- NOTE | 2023-05-28 18:42 | PC.NURSE ---
I reviewed Ashley Jacob's charting and agree with her charting
[2023-05-28] MEDS: ASCORBIC ACID 500 MG TABLET 1000 MG PO (20:47)
[2023-05-28] MEDS: MONTELUKAST SODIUM 10 MG TABLET PO (20:47)
[2023-05-28] MEDS: LATANOPROST 0.005% OP SOLN 2.5 ML BTL 1 DROP EACH EYE (20:47)
[2023-05-28] MEDS: VITAMIN B COMPLEX/VIT C CAPSULE 1 EACH PO (20:48)
[2023-05-28 20:55] LABS: Glucose Point of Care 137 mg/dl (65-105)
[2023-05-28 22:00] VITALS: BP 146/62; PULSE 68; RESP 18; TEMP 35.8; O2SAT 95
[2023-05-29 06:00] VITALS: BP 158/66; PULSE 67; RESP 18; TEMP 36.6; O2SAT 97
[2023-05-29 06:24] LABS: Basophils Percent Auto 0.4 % (0.2-1.2); Eosinophils Absolute Auto 0.2 K/mm3 (0-0.3); Eosinophils Percent Auto 2.3 % (0-4.4); Hematocrit 30.4 % (42.0-52.0); Hemoglobin 10.1 g/dL (14.0-18.0); Immature Granulocyte Absolute 0.13 K/mm3 (0.00-0.031); Immature Granulocyte Percent A 1.8 % (0-0.5); Lymphocytes Percent Auto 12.4 % (18.3-44.2); Mean Corpuscular HGB Conc 33.2 g/dl (32-36); Mean Corpuscular Hemoglobin 32.6 pg (26-34); Mean Corpuscular Volume 98.1 fl (80-100); Mean Platelet Volume 8.4 fl (7.4-10.4); Monocytes Absolute Auto 0.7 K/mm3 (0.1-0.6); Monocytes Percent Auto 9.5 % (2.6-8.5); Neutrophils Absolute Auto 5.3 K/mm3 (1.3-6.7); Neutrophils Percent Auto 73.6 % (45.5-73.1); Platelet Count Result 251 k/mm3 (150-375); Red Cell Distribution Width 13.4 % (11.5-14.5); White Blood Count 7.3 K/mm3 (4.5-10.0)
[2023-05-29 06:37] LABS: INR 1.3; Prothrombin Time 16.7 Seconds (11.1-14.7)
[2023-05-29 06:40] LABS: Alanine Aminotransferase 57 U/L (6-50); Albumin Level 2.8 g/dL (3.5-5.1); Alkaline Phosphatase 58 U/L (38-126); Anion Gap 3 mmol/L (8-16); Aspartate Amino Transferase 75 U/L (17-59); Bilirubin,Total 0.4 mg/dL (0.2-1.3); Blood Urea Nitrogen 15 mg/dL (9-20); Calcium 7.7 mg/dL (8.4-10.2); Carbon Dioxide 28 mmol/L (22-30); Chloride 101 mmol/L (98-107); Estimated CRCL calculation 71 ml/min; Estimated Glomerular Filt Rate > 60; Glucose 126 mg/dL (65-110); Potassium 3.5 mmol/L (3.4-5.0); Sodium 132 mmol/L (137-145)
[2023-05-29 07:55] LABS: Glucose Point of Care 123 mg/dl (65-105)
[2023-05-29] MEDS: polyethylene glycoL 3350 17 GM POWD.PACK PO (09:23)
[2023-05-29] MEDS: SENNA/DOCUSATE SODIUM TABLET 2 TAB PO (09:23)
[2023-05-29] MEDS: LORATADINE 10 MG TABLET PO (09:23)
[2023-05-29 09:24] VITALS: PULSE 68
[2023-05-29] MEDS: TELMISARTAN 40 MG TABLET PO (09:24)
[2023-05-29] MEDS: CHOLECALCIFEROL 1,000 UNITS TABLET 3000 UNITS PO (09:24)
[2023-05-29] MEDS: AMIODARONE HCL 200 MG TABLET PO (09:24)
[2023-05-29] MEDS: PRIMIDONE 250 MG TABLET PO ×2 (09:25→12:45)
[2023-05-29] MEDS: SODIUM CHLORIDE 1 GM TABLET PO (09:25)
[2023-05-29] MEDS: diazePAM (*CRX) 5 MG TABLET PO (09:35)
[2023-05-29 11:49] LABS: Glucose Point of Care 132 mg/dl (65-105)
--- NOTE | 2023-05-29 12:54 | PM.DS ---
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 type 2 diabetes complication current use of insulin DS: Discharge Diagnosis Discharge Diagnosis (1) Hyponatremia: Code(s): E87.1 - Hypo-osmolality and hyponatremia Status: Chronic (2) Femoral neck fracture: Qualifiers: Encounter type: initial encounter Fracture type: closed Laterality: right Qualified Code(s): S72.001A - Fracture of unspecified part of neck of right femur, initial encounter for closed fracture Code(s): S72.009A - Fracture of unspecified part of neck of unspecified femur, initial encounter for closed fracture Status: Acute (3) Chronic anticoagulation: Code(s): 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 Status: Acute (4) Hypertensive heart disease with chronic diastolic congestive heart failure: Code(s): I11.0 - Hypertensive heart disease with heart failure; I50.32 - Chronic diastolic (congestive) heart failure Status: Acute (5) Type 2 diabetes mellitus without complication, without long-term current use of insulin: Code(s): E11.9 - Type 2 diabetes mellitus without complications Status: Acute (6) Essential tremor: Code(s): G25.0 - Essential tremor Status: Acute (7) Ground-level fall: Code(s): W18.30XA - Fall on same level, unspecified, initial encounter Status: Acute DS: Summary Hospital Course Reason for hospitalization: This is an 88-year-old male patient who was admitted to the hospital with ground level fall resulting in right femoral neck fracture. Patient was admitted to bipolar hip replacement. Hospital Course: Patient is on long-term anticoagulation warfarin and was therapeutic at time of admission. Warfarin was held in preparation for surgery within the next 1-2 days but level continue to elevate without additional dosing and maintained elevated for a couple of days. Once INR was within goal to proceed with surgery patient had an acute drop in sodium levels from the 130s to 119 with a low of 117 to follow. patient had no acute neurologic changes with this sodium drop. Nephrology was consulted to assist in balancing hyponatremia. Over several days patient became very frustrated with not being able to have his surgery and repeated emphasis careful correction of sodium was necessary with patient and family. Eventually (7 days) patient was able to right bipolar hip replacement. Postop day 1 patient was working with therapy and by today patient is doing extensive work with therapy in preparation for eventual return home with independent living. Today sodium level was 132 and nephrology was okay with patient being discharged to rehab. Patient will go to [facility] with the eventual goal of going home soon. Status at Discharge Cognitive/behavioral status at discharge: Awake, alert, oriented and pleasant Functional status at discharge: uses cane/walker Overall status at discharge: patient is progressing back to baseline Time Spent with Patient Time attestation: Total time spent providing and/or coordinating discharge services: Time spent: Greater than 30 minutes Exam Narrative: GENERAL: non-toxic, in no acute distress. Patient mildly tired after working with therapy. HEAD: Normocephalic, atraumatic. No contusions. EYES: PERRLA/EOMI, conjunctiva clear. NECK: Supple. No adenopathy, no masses. RESPIRATORY: Airway patent, respirations nonlabored. Clear to auscultation bilaterally, no rales, rhonchi, wheezing. CARDIOVASCULAR: Regular rate and irregular rhythm without murmurs, rubs, or gallops. Pedal pulses 2+ and equal bilaterally. MUSCULOSKELETAL: Right lateral thigh dressing clean dry and intact. Sensation intact. Able to wiggle toes. Working with therapy for strengthening. St
--- NOTE | 2023-05-29 15:03 | PC.NURSE ---
Patients home medications were returned to family already, per family present at bedside during discharge
== END 2023-05-29 14:50 | DRG 522 ==
LOC: ANHED 20:08 → ANH3MEDSUR 23:24
PROVIDERS: Internal Medicine; Internal Medicine Nephrology; Orthopaedic Surgery; Admitting Provider Internal Medicine; Emergency Provider Physician Assistant; PCP Nurse Practitioner Family; Visit Provider Nurse Practitioner
PROC: 0SRR01A Replacement of Right Hip Joint, Femoral Surface with Metal Synthetic Substitute, Uncemented, Open Approach (ICD-10-PCS; CPT 27125; principal; 2023-05-26 12:30)
DX: S72.091A Other fracture of head and neck of right femur, initial encounter for closed fracture (principal); E87.1 Hypo-osmolality and hyponatremia; I50.32 Chronic diastolic (congestive) heart failure; W01.0XXA Fall on same level from slipping, tripping and stumbling without subsequent striking against object, initial encounter; I48.91 Unspecified atrial fibrillation; I11.0 Hypertensive heart disease with heart failure; E11.9 Type 2 diabetes mellitus without complications; I44.0 Atrioventricular block, first degree; G25.0 Essential tremor; K86.89 Other specified diseases of pancreas; E78.2 Mixed hyperlipidemia; Z79.01 Long term (current) use of anticoagulants; Z98.1 Arthrodesis status; Z79.4 Long term (current) use of insulin
CPT/HCPCS: 36415; 71045; 73501; 73502; 80048; 80053; 81001; 81050; 82436; 82533; 82570; 82948; 83036; 83883; 83930; 83935; 84100; 84133; 84155; 84156; 84165; 84295; 84300; 84443; 84540; 85025; 85055; 85610; 85730; 86850; 86900; 86901; 93005; 96374; 96375; 96376; 97110; 97116; 97161; 97166; 97530; 97535; 99285; A9270; C1776; J0171; J0690; J0834; J1100; J1170; J1200; J2270; J2405; J2704; J2795; J3010; J3370; J7030; J7120; J7131

== ENCOUNTER 2023-08-30 08:04 | Emergency (ER) | payer MEDICARE, SELFPAY ==
[2023-08-30 08:18] VITALS: BP 98/69; PULSE 58; RESP 18; TEMP 36.3; O2SAT 99
--- NOTE | 2023-08-30 08:25 | ECG_ITS ---
Measurements Intervals [place] Rate: 50 P: 54 HI: 208 QRS: 13 QRSD: 105 T: 13 QT: 444 QTc: 408 Interpretive Statements SINUS BRADYCARDIA WITH FIRST DEGREE AV BLOCK BORDERLINE ECG COMPARED TO ECG 05/20/2023 21:51:41 SINUS BRADYCARDIA NOW PRESENT Electronically Signed On 08-30-2023 12:10:08 MANAGER FIELD SERVICES by Juancarlos Marx D.O.
[2023-08-30 08:41] VITALS: BP 152/66
--- NOTE | 2023-08-30 08:47 | ED.GENADULT ---
HPI - General Adult General Chief complaint: Unspecified Stated complaint: bilateral leg swelling Time Seen by Provider: 08/30/23 08:20 Source: patient and family Mode of arrival: ambulatory Limitations: no limitations History of Present Illness HPI narrative: 88-year-old male with history of AFib presents with complaint of bilateral lower leg swelling. Spoke with his sand wheeler 2 days ago and was started on 20 mg Lasix. Patient had been off his Lasix for several weeks due to low sodium levels. Patient denies chest pain and shortness of breath. States that swelling has not decreased since starting Lasix. Daughter noticed red spots to left leg today, concern for cellulitis. Patient reports that legs been itchy due to swelling and has been scratching. Patient is supposed to have labs rechecked after her being on Lasix for 1 week. All systems reviewed and negative except as noted above. Related Data Home Medications Medication Instructions Recorded Confirmed latanoprost 0.005 % eye drops 1 drop ophthalmic (eye) HS 03/28/20 07/04/23 B-complex with vitamin C 1 tablet PO HS 05/09/20 07/04/23 amiodarone 200 mg tablet 200 mg PO DAILY 05/09/20 07/04/23 ascorbic acid (vitamin C) 1,000 mg 1 g PO HS 05/09/20 07/04/23 tablet warfarin 5 mg tablet 5 mg PO 2XW 05/09/20 07/04/23 warfarin 7.5 mg tablet 7.5 mg PO DAILY 05/09/20 07/04/23 furosemide 20 mg tablet 20 mg PO DAILY 11/14/20 07/04/23 cholecalciferol (vitamin D3) 75 75 mcg PO DAILY 05/07/21 07/04/23 mcg (3,000 unit) tablet loratadine 10 mg tablet (Allergy 10 mg PO DAILY 06/19/23 07/04/23 Relief (loratadine)) Allergies Allergy/AdvReac Type Severity Reaction Status Date / Time naproxen Allergy Severe SWELLING/SO Verified 07/02/23 15:18 B Review of Systems Review of Systems: CONSTITUTIONAL: Denies fever, chills, or sweats. EYES: Denies visual changes, redness, or discharge. ENT: Denies rhinorrhea, congestion, sore throat, or otalgia. CARDIOVASCULAR: Denies chest pain, palpitations . Reports lower leg swelling. RESPIRATORY: Denies cough or dyspnea. GASTROINTESTINAL: Denies abdominal pain, nausea, vomiting, or diarrhea. GENITOURINARY: Denies dysuria or hematuria. SKIN: Denies rash or itching. MUSCULOSKELETAL: Denies back pain, joint pain, or myalgia. NEUROLOGIC: Denies headache, numbness, or weakness. PSYCHIATRIC: Denies anxiety or depression. All other systems reviewed are negative, except as documented in HPI. [facility] Past Medical History Medical History Acute respiratory failure with hypoxia Anemia Arthritis BMI 32.0-32.9,adult Cataract Cervical vertebral fusion Chronic atrial fibrillation Chronic diastolic (congestive) heart failure Constipation Edema, lower extremity Encounter to establish care Essential tremor Eye exam normal Glaucoma Headache Hearing loss Hyponatremia Mixed hyperlipidemia Neck pain, acute Pancreatic lesion Pneumonia due to COVID-19 virus Routine eye exam Seasonal allergies Spondylosis of lumbar spine Type 2 diabetes mellitus without complication, without long-term current use of insulin Unspecified fall, initial encounter Family History Family History Father Cerebrovascular accident Sibling Asthma Other Diabetes mellitus Family history of arthritis Hypertension Social History Social History Social History: patient is a nonsmoker and never has smoked. He does not use alcohol or drugs. 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 His power of 4th grade math teacher is Jia Leon, daughter. He would like to be a full code Smoking status: Never smoker Tobacco type: smokeless tobacco Smokeless tobacco user: chewing tobacco Second hand tobacco smoke exposure: No Alcohol intake: never Substance use: never Substance use type: does not use Lack of Transportation: No
== END 2023-08-30 09:02 | disposition short-term general hospital (02) ==
PROVIDERS: Emergency Provider Nurse Practitioner Family; PCP Nurse Practitioner Family
DX: R00.1 Bradycardia, unspecified (principal); R60.0 Localized edema; M19.90 Unspecified osteoarthritis, unspecified site; I48.20 Chronic atrial fibrillation, unspecified; I50.32 Chronic diastolic (congestive) heart failure; E11.39 Type 2 diabetes mellitus with other diabetic ophthalmic complication; H40.9 Unspecified glaucoma; H42 Glaucoma in diseases classified elsewhere; E78.2 Mixed hyperlipidemia; Z86.16 Personal history of COVID-19; Z79.01 Long term (current) use of anticoagulants
CPT/HCPCS: 93005; 99213; G0463

== ENCOUNTER 2023-08-30 09:15 | Emergency (ER) | payer MEDICARE, SELFPAY ==
[2023-08-30] VITALS (22 sets, daily range): BP systolic 146–177; BP diastolic 47–75; PULSE 42–54; RESP 10–18; TEMP 36.2; O2SAT 96–100
--- NOTE | ~2023-08-30 | XR_ITS ---
EXAMINATION: XR chest 2V DATE: 08/30/2023 10:45 INDICATION: Lower limb edema. TECHNIQUE: Frontal and lateral views of the chest were obtained on 3 radiographs. COMPARISON: Chest single view 05/20/2023 FINDINGS: There is chronic mild elevation left hemidiaphragm. There is mild atelectasis in left lower lung zone. A calcified right lung nodule is consistent with old granulomatous disease. There are sma ll pleural effusions. No pneumothorax. The heart size is normal. IMPRESSION: 1. Small pleural effusions. 2. Chronic mild elevation of left hemidiaphragm with mild atelectasis in left lower lung zone. Reviewed, dictated and finalized at location A. ICAL ACADEMIC ALLERGIST IMPRESSION: 1. Small pleural effusions. 2. Chronic mild elevation of left hemidiaphragm with mild atelectasis in left l ower lung zone.
--- NOTE | ~2023-08-30 | US_ITS ---
EXAMINATION: US venous doppler [facility] DATE: 08/30/2023 10:24 INDICATION: Lower limb swelling. TECHNIQUE: Grayscale ultrasound images without and with compression and Doppler ultrasound images of the bilateral lower extremity veins were obtained. COMPARISON: None. FINDINGS: The visualized portions of right common femoral vein, profunda (deep) femoral vein, femoral vein, pop liteal vein, peroneal veins, posterior tibial veins, and greater saphenous vein outflow are patent. The visualized portions of left common femoral vein, profunda femoral vein, femoral vein, popliteal v ein, peroneal veins, posterior tibial veins, and greater saphenous vein outflow are patent. IMPRESSION: 1. No deep venous thrombosis. Reviewed, dictated and finalized at location A. ON PICTURE OPERATOR
--- NOTE | 2023-08-30 09:28 | ECG_ITS ---
Measurements Intervals [place] Rate: 50 P: 75 SC: 222 QRS: 12 QRSD: 94 T: 31 QT: 445 QTc: 408 Interpretive Statements SINUS BRADYCARDIA WITH SINUS ARRHYTHMIA WITH FIRST DEGREE AV BLOCK BORDERLINE R WAVE PROGRESSION, ANTERIOR LEADS LOW QRS VOLTAGE IN LIMB LEADS BASELINE ARTIFACT- I, II, AVR, V1, V4 BORDERLINE ECG COMPARED TO ECG 08/30/2023 08:31:45 SINUS ARRHYTHMIA NOW PRESENT Electronically Signed On 08-30-2023 12:13:45 CANCELING MACHINE OPERATOR by Juancarlos Marx D.O.
[2023-08-30 09:50] LABS: Basophils Percent Auto 0.5 % (0.2-1.2); Eosinophils Absolute Auto 0.2 K/mm3 (0-0.3); Eosinophils Percent Auto 5.4 % (0-4.4); Hematocrit 44.4 % (42.0-52.0); Hemoglobin 13.8 g/dL (14.0-18.0); Immature Granulocyte Absolute 0.01 K/mm3 (0.00-0.031); Immature Granulocyte Percent A 0.2 % (0-0.5); Lymphocytes Absolute Auto 1.71 K/mm3 (0.9-3.2); Lymphocytes Percent Auto 41.7 % (18.3-44.2); Mean Corpuscular HGB Conc 31.1 g/dl (32-36); Mean Corpuscular Hemoglobin 29.9 pg (26-34); Mean Corpuscular Volume 96.3 fl (80-100); Mean Platelet Volume 9.4 fl (7.4-10.4); Monocytes Absolute Auto 0.4 K/mm3 (0.1-0.6); Monocytes Percent Auto 10.2 % (2.6-8.5); Neutrophils Absolute Auto 1.7 K/mm3 (1.3-6.7); Platelet Count Result 221 k/mm3 (150-375); Red Blood Count 4.61 M/mm3 (4.6-6.20); White Blood Count 4.1 K/mm3 (4.5-10.0)
[2023-08-30 10:00] LABS: Alanine Aminotransferase 16 U/L (6-50); Albumin Level 4.4 g/dL (3.5-5.1); Alkaline Phosphatase 136 U/L (38-126); Anion Gap 7 mmol/L (8-16); Aspartate Amino Transferase 36 U/L (17-59); Bilirubin,Total 0.5 mg/dL (0.2-1.3); Blood Urea Nitrogen 15 mg/dL (9-20); Calcium 8.8 mg/dL (8.4-10.2); Carbon Dioxide 32 mmol/L (22-30); Chloride 100 mmol/L (98-107); Estimated CRCL calculation 57 ml/min; Estimated Glomerular Filt Rate > 60; Glucose 98 mg/dL (65-110); Sodium 139 mmol/L (137-145)
[2023-08-30 10:09] LABS: NT Pro B Type Natriuretic Pept 853 pg/mL (19.9-100)
--- NOTE | 2023-08-30 10:09 | ED.EXTPRO ---
HPI - Extremity Problem General Chief complaint: Extremity Problem,Nontraumatic Stated complaint: leg swelling, low HR Time Seen by Provider: 08/30/23 09:28 Source: patient and family Mode of arrival: wheelchair Limitations: no limitations History of Present Illness HPI Narrative: This is a 88 year old male that presents to the ER for lower extremity edema. Reports ongoing over the last several months. He was admitted due to hip fracture in May. He had hyponatremia during his admission which prompted them to stop his Lasix. Since he has had worsening lower extremity edema. Reports weeping and itching. Denies fever, chest pain, shortness of breath, or erythema. Related Data Home Medications Medication Instructions Recorded Confirmed latanoprost 0.005 % eye drops 1 drop ophthalmic (eye) HS 03/28/20 07/04/23 B-complex with vitamin C 1 tablet PO HS 05/09/20 07/04/23 amiodarone 200 mg tablet 200 mg PO DAILY 05/09/20 07/04/23 ascorbic acid (vitamin C) 1,000 mg 1 g PO HS 05/09/20 07/04/23 tablet warfarin 5 mg tablet 5 mg PO 2XW 05/09/20 07/04/23 warfarin 7.5 mg tablet 7.5 mg PO DAILY 05/09/20 07/04/23 furosemide 20 mg tablet 20 mg PO DAILY 11/14/20 07/04/23 cholecalciferol (vitamin D3) 75 75 mcg PO DAILY 05/07/21 07/04/23 mcg (3,000 unit) tablet loratadine 10 mg tablet (Allergy 10 mg PO DAILY 06/19/23 07/04/23 Relief (loratadine)) Allergies Allergy/AdvReac Type Severity Reaction Status Date / Time naproxen Allergy Severe SWELLING/SO Verified 07/02/23 15:18 B Review of Systems Review of Systems: CONSTITUTIONAL: Denies fever CARDIOVASCULAR: Reports edema. Denies chest pain RESPIRATORY: Denies dyspnea. SKIN: Reports itching. All systems reviewed & are unremarkable except as noted in HPI and below PMFSH Past Medical History Medical History Acute respiratory failure with hypoxia Anemia Arthritis BMI 32.0-32.9,adult Cataract Cervical vertebral fusion Chronic atrial fibrillation Chronic diastolic (congestive) heart failure Constipation Edema, lower extremity Encounter to establish care Essential tremor Eye exam normal Glaucoma Headache Hearing loss Hyponatremia Mixed hyperlipidemia Neck pain, acute Pancreatic lesion Pneumonia due to COVID-19 virus Routine eye exam Seasonal allergies Spondylosis of lumbar spine Type 2 diabetes mellitus without complication, without long-term current use of insulin Unspecified fall, initial encounter Family History Family History Father Cerebrovascular accident Sibling Asthma Other Diabetes mellitus Family history of arthritis Hypertension Social History Social History Social History: patient is a nonsmoker and never has smoked. He does not use alcohol or drugs. 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 He would like to be a full code Smoking status: Never smoker Tobacco type: smokeless tobacco Smokeless tobacco user: chewing tobacco Second hand tobacco smoke exposure: No Alcohol intake: never Substance use: never Substance use type: does not use Lack of Transportation: No Lack of Food: Never True Current Housing: I Have Housing Concerned About Future Housing: No Difficulty Paying Gas/Electric Bills: No Difficulty Paying for Meds: No Currently Unemployed: No Education: High School Diploma/GED Difficulty w/ Childcare or Family Care: No Living arrangements: with family Occupation/Education: retired Gender identity (if verbalized by the patient): Male Sexual Orientation (if Verbalized by the Patient): Straight or Heterosexual Spiritual care concerns: No Agree to blood products: Yes Exam Narrative: GENERAL: Elderly, well-nourished, and in no acute distress. HEAD: Normocephalic, atraumatic. EYES: EOMI.
[2023-08-30 11:05] LABS: Appearance Urine Clear (Clear); Bacteria Urine None Seen /hpf; Bilirubin Urine Negative (Negative); Blood Urine Trace (Negative); Color Urine Yellow (Yellow); Glucose Urine UA Negative (Negative); Ketones Urine Negative (Negative); Leukocyte Esterase Ur Negative LEU/UL (Negative); Nitrate Urine Negative (Negative); Non Pathogenic Casts 0-2; Protein Urine Negative (Negative); RBC Urine 0-2 /hpf (0-2); Specific Grav Ur 1.008 (1.001-1.035); Squamous Epithelial Cell Urine None seen /hpf (Few); Urobilinogen Urine 0.2 mg/dL (<2.0); WBC Urine 0-5 /hpf; pH Urine 6.5 (5.0-9.0)
[2023-08-30 11:22] LABS: Troponin I < 0.012 ng/mL (0.000-0.034)
[2023-08-30 11:26] LABS: Add Urine Microscopic? YES
== END 2023-08-30 12:53 | disposition home or self-care (01) ==
PROVIDERS: Emergency Provider Physician Assistant; PCP Nurse Practitioner Family
DX: R60.0 Localized edema (principal); I48.20 Chronic atrial fibrillation, unspecified; E11.39 Type 2 diabetes mellitus with other diabetic ophthalmic complication; H42 Glaucoma in diseases classified elsewhere; H40.9 Unspecified glaucoma; E78.2 Mixed hyperlipidemia; M19.90 Unspecified osteoarthritis, unspecified site; M47.816 Spondylosis without myelopathy or radiculopathy, lumbar region; Z87.01 Personal history of pneumonia (recurrent); Z86.16 Personal history of COVID-19; Z79.01 Long term (current) use of anticoagulants; R00.1 Bradycardia, unspecified; R94.31 Abnormal electrocardiogram [ECG] [EKG]
CPT/HCPCS: 36415; 71046; 80053; 81001; 83880; 84484; 85025; 93005; 93970; 99284

== ENCOUNTER 2024-03-13 12:23 | Emergency (ER) | payer MEDICARE, SELFPAY ==
--- NOTE | ~2024-03-13 | CT_ITS ---
EXAMINATION: CT BRAIN W/O DATE: 03/13/2024 15:44 INDICATION: Lightheadedness. Visual changes. TECHNIQUE: Computed tomography (CT) of the head was performed without intravenous contrast. The dose- length product was 605.33 mGy-cm. Automated exposure control and iterative reconstruction technique w ere employed. COMPARISON: CT dated 05/09/2020 FINDINGS: Generalized atrophy. There are scattered mild periventricular and subcortical white matter changes, most likely related to small vessel ischemic disease (microangiopathy). No acute infarction, hemorrhage, mass or mass effect. There is intracranial atherosclerosis. No ventriculomegaly or midline shift. Midline sagittal images demonstrate a normal corpus callosum, c raniovertebral junction and sella turcica. Basilar cisterns are patent. Paranasal sinuses and mastoids are pneumatized. No depressed skull fractures. IMPRESSION: 1. No acute intracranial abnormality. Reviewed, dictated and finalized at location A.
--- NOTE | ~2024-03-13 | CT_ITS ---
EXAMINATION: CTA brain carotid DATE: 03/13/2024 15:55 CDT INDICATION: Lightheadedness and vision change TECHNIQUE: Computed tomographic angiography (CTA) of the head was performed without and with 100 mL O mnipaque-350 intravenous contrast. CTA of the neck was performed with intravenous contrast. The dose- length product was 918.73 mGy-cm. Maximum intensity projection and volume rendered 3D-reconstructions were created by the technologist on a separate workstation. COMPARISON: CT dated 03/13/2024. FINDINGS: HEAD CTA: The anterior, middle and posterior cerebral arteries are symmetric without evidence for significant s tenosis, occlusion or aneurysm. No vascular anomalies. Vertebral arteries are symmetric. NECK CTA: There is mild atherosclerosis. No significant stenosis, dissection or occlusion. No cervica l lymphadenopathy. There is 0% stenosis of the proximal right internal carotid artery relative to normal distal artery l umen diameter (NASCET criteria). There is 0% stenosis of the proximal left internal carotid artery re lative to normal distal artery lumen diameter. IMPRESSION: 1: No significant vascular abnormality of the head or neck. Reviewed, dictated and finalized at location A.
[2024-03-13 12:24] VITALS: BP 147/74; PULSE 53; RESP 16; TEMP 36.2; O2SAT 100
--- NOTE | 2024-03-13 14:25 | ECG_ITS ---
SEE SCANNED COPY FOR CONFIRMED REPORT MTDD
[2024-03-13 14:44] VITALS: BP 145/65; BP 152/70; PULSE 49; PULSE 50
[2024-03-13 14:46] VITALS: BP 139/73; PULSE 50
--- NOTE | 2024-03-13 14:58 | ED.GENADULT ---
HPI - General Adult General Chief complaint: Unspecified Stated complaint: DEPTH PERCEPTION ISSUES Time Seen by Provider: 03/13/24 14:03 Source: patient Mode of arrival: ambulatory Limitations: no limitations History of Present Illness HPI narrative: Patient is an 89-year-old male who presents the ED with report of lightheadedness. Patient reports he woke up this morning and felt lightheaded. He went about his normal morning routine, but continued to feel lightheaded. He uses a Rollator for assistance with ambulation and felt as though the Rollator was leaning to 1 side. He felt somewhat off balance with walking. He also reported having a mild frontal HER, intermittent vision changes described as though his vision was fuzzy. He is unsure if he was wearing his bifocal glasses at that time however, which does distort his vision. Denied focal weakness in arm or leg, numbness, vision loss, syncope, slurred speech, aphasia, confusion. He contacted his primary care doctor was referred to the ED for further evaluation. Related Data Home Medications Medication Instructions Recorded Confirmed latanoprost 0.005 % eye drops 1 drop ophthalmic (eye) HS 03/28/20 12/14/23 B-complex with vitamin C 1 tablet PO HS 05/09/20 12/14/23 amiodarone 200 mg tablet 200 mg PO DAILY 05/09/20 12/14/23 ascorbic acid (vitamin C) 1,000 mg 1 g PO HS 05/09/20 12/14/23 tablet warfarin 5 mg tablet 5 mg PO 2XW 05/09/20 12/14/23 warfarin 7.5 mg tablet 7.5 mg PO DAILY 05/09/20 12/14/23 cholecalciferol (vitamin D3) 75 75 mcg PO DAILY 05/07/21 12/14/23 mcg (3,000 unit) tablet loratadine 10 mg tablet (Allergy 10 mg PO DAILY 06/19/23 12/14/23 Relief (loratadine)) Allergies Allergy/AdvReac Type Severity Reaction Status Date / Time naproxen Allergy Severe SWELLING/SO Verified 12/14/23 08:54 B Review of Systems Review of Systems: CONSTITUTIONAL: Denies fever, chills, or sweats. EENT: See HPI. CARDIOVASCULAR: Denies chest pain, palpitations, or edema. RESPIRATORY: Denies cough or dyspnea. GASTROINTESTINAL: Denies abdominal pain, nausea, vomiting. NEUROLOGIC: See HPI. All systems reviewed & are unremarkable except as noted in HPI and below PMFSH Past Medical History Medical History Acute respiratory failure with hypoxia Anemia Arthritis BMI 32.0-32.9,adult Cataract Cervical vertebral fusion Chronic atrial fibrillation Chronic diastolic (congestive) heart failure Constipation Edema, lower extremity Encounter to establish care Essential tremor Eye exam normal Glaucoma Headache Hearing loss Hypertension Hyponatremia Mixed hyperlipidemia Neck pain, acute Pancreatic lesion Pneumonia Pneumonia due to COVID-19 virus Routine eye exam Seasonal allergies Spondylosis of lumbar spine Type 2 diabetes mellitus without complication, without long-term current use of insulin Unspecified fall, initial encounter Family History Family History Father Cerebrovascular accident Sibling Asthma Other Diabetes mellitus Family history of arthritis Hypertension Social History Social History Social History: patient is a nonsmoker and never has smoked. He does not use alcohol or drugs. 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 He would like to be a full code Smoking status: Never smoker Tobacco type: smokeless tobacco Smokeless tobacco user: chewing tobacco Second hand tobacco smoke exposure: No Alcohol intake: never Substance use: never Substance use type: does not use Lack of Transportation: No Lack of Food: Never True Current Housing: I Have Housing Concerned About Future Housing: No Difficulty Paying Gas/Electric Bills: No Difficulty Paying for Meds: No Currently Unemployed: No Education: [employer]
[2024-03-13 15:04] VITALS: BP 139/73; PULSE 53; RESP 16; O2SAT 100
[2024-03-13 15:06] LABS: Basophils Percent Auto 0.5 % (0.2-1.2); Eosinophils Absolute Auto 0.2 K/mm3 (0-0.3); Eosinophils Percent Auto 2.8 % (0-4.4); Hematocrit 41.5 % (42.0-52.0); Immature Granulocyte Absolute 0.01 K/mm3 (0.00-0.031); Immature Granulocyte Percent A 0.2 % (0-0.5); Lymphocytes Absolute Auto 1.79 K/mm3 (0.9-3.2); Mean Corpuscular HGB Conc 33.7 g/dl (32-36); Mean Corpuscular Hemoglobin 32.7 pg (26-34); Mean Platelet Volume 9.7 fl (7.4-10.4); Monocytes Absolute Auto 0.4 K/mm3 (0.1-0.6); Monocytes Percent Auto 7.5 % (2.6-8.5); Neutrophils Absolute Auto 3.4 K/mm3 (1.3-6.7); Platelet Count Result 201 k/mm3 (150-375); Red Blood Count 4.28 M/mm3 (4.6-6.20); White Blood Count 5.8 K/mm3 (4.5-10.0)
[2024-03-13 15:08] LABS: Appearance Urine Clear (Clear); Bilirubin Urine Negative (Negative); Blood Urine Negative (Negative); Color Urine Yellow (Yellow); Glucose Urine UA Negative (Negative); Ketones Urine Negative (Negative); Leukocyte Esterase Ur Negative LEU/UL (Negative); Nitrate Urine Negative (Negative); Protein Urine Negative (Negative); Specific Grav Ur 1.011 (1.001-1.035); pH Urine 5.5 (5.0-9.0)
[2024-03-13] MEDS: SODIUM CHLORIDE 0.9% IV 1,000 ML 999 ML IV CONT (15:14)
[2024-03-13 15:17] LABS: INR 2.2; Prothrombin Time 25.8 Seconds (11.1-14.7)
[2024-03-13 15:20] LABS: Alanine Aminotransferase 17 U/L (6-50); Alkaline Phosphatase 102 U/L (38-126); Anion Gap 4 mmol/L (4-12); Aspartate Amino Transferase 30 U/L (17-59); Bilirubin,Total 0.4 mg/dL (0.2-1.3); Blood Urea Nitrogen 13 mg/dL (9-20); Calcium 8.3 mg/dL (8.4-10.2); Carbon Dioxide 28 mmol/L (22-30); Chloride 99 mmol/L (98-107); Estimated CRCL calculation 34 ml/min; Estimated Glomerular Filt Rate > 60; Glucose 99 mg/dL (65-110); Sodium 131 mmol/L (137-145)
[2024-03-13 15:22] LABS: Add Urine Microscopic? NO
[2024-03-13 15:28] LABS: Troponin I < 0.012 ng/mL (0.000-0.034)
[2024-03-13 16:32] VITALS: PULSE 61; RESP 12; O2SAT 100
[2024-03-13 17:15] VITALS: BP 147/93; PULSE 51; RESP 14; O2SAT 100
== END 2024-03-13 17:16 | disposition home or self-care (01) ==
PROVIDERS: Emergency Provider Physician Assistant; PCP Nurse Practitioner Family
DX: I95.1 Orthostatic hypotension (principal); R42 Dizziness and giddiness; R00.1 Bradycardia, unspecified; D64.9 Anemia, unspecified; M19.90 Unspecified osteoarthritis, unspecified site; I48.91 Unspecified atrial fibrillation; I11.0 Hypertensive heart disease with heart failure; I50.9 Heart failure, unspecified; E78.5 Hyperlipidemia, unspecified; E11.9 Type 2 diabetes mellitus without complications; Z79.4 Long term (current) use of insulin
CPT/HCPCS: 36415; 70450; 70496; 70498; 80053; 81003; 83735; 84484; 85025; 85610; 85730; 93005; 96360; 96361; 99284; J7030; Q9967

== ENCOUNTER 2024-12-24 09:00 | Emergency (ER) | payer MEDICARE, SELFPAY ==
[2024-12-24 09:03] VITALS: BP 171/71; PULSE 53; RESP 19; TEMP 36.4; O2SAT 99
--- NOTE | 2024-12-24 09:03 | ECG_ITS ---
Test Date: 2024-12-24 09:15:36 Measurements Intervals Eugene Rate: 50 P: 6 DC: 224 QRS: -18 QRSD: 93 T: 9 QT: 408 QTc: 372 Interpretive Statements SINUS BRADYCARDIA WITH FIRST DEGREE AV BLOCK LOW QRS VOLTAGE BORDERLINE ECG No previous ECG available for comparison Electronically Signed On 12-24-2024 15:57:50 SUPERVISOR BAKING by Jaiden Pisano M.D.
--- OUTSIDE RECORDS SUMMARY | 2024-12-24 09:10 | XMS_ITS | Clinical Summary ---
Author Organization [employer] [address] [facility] Address [address] [place] [address] Care Team Providers Care Printing Equipment Mechanic Apprentice Name Role Phone Hector Graham MD Primary Care Provider [phone] Allergies Active Allergy Reactions Criticality Noted Date Comments Naproxen Swelling High 04/18/2011 Medications amiodarone (CORDARONE) 200 mg tablet amiodarone 200 mg tablet 9 Active ascorbic acid, vitamin C, (VITAMIN C) 1,000 mg Tablet Vitamin C 1,000 mg tablet Take by oral route. Active atorvastatin (LIPITOR) 10 mg tablet atorvastatin 10 mg tablet 7 Active carbidopa-levod opa (SINEMET CR) 50-200 mg Controlled Release tablet carbidopa ER 50 mg-levodopa 200 mg tablet,extended release 8 Active cholecalciferol , Vitamin D3, (VITAMIN D3) 1,000 unit Capsule Vitamin D3 1,000 unit capsule Take by oral route. Active fexofenadine (LAEXI ALLERGY) 180 mg tablet every 24 hours. Acti ve furosemide (LASIX) 20 mg tablet furosemide 20 mg tablet 7 Active metFORMIN (GLUCOPHAGE) 1,000 mg tablet metformin 1,000 mg tablet 5 Active montelukast (SINGULAIR) 10 mg tablet montelukast 10 mg tablet 5 Active primidone (MYSOLINE) 250 mg tablet primidone 250 mg tablet Active telmisartan (MICARDIS) 40 mg Tablet telmisartan 40 mg tablet Active warfarin (COUMADIN) 7.5 mg tablet warfarin 7.5 mg tablet 9 Active latanoprost (XALATAN) 0.005 % solution latanoprost 0.005 % eye drops 5 Active B-complex + vitamin C (SUPER B-C) Tablet Take 1 Tablet by mouth daily. Active Active Problems Problem Noted Date Diagnosed Date Cervical disc disease 06/13/2019 Family History Medical History Relation Name Comments Stroke Father Aneurysm Mother Relation Name Status Comments Father Mother Social History Tobacco Use Types Packs/Day Years Used Date Smoking Tobacco: Never Smokeless Tobacco: Current Alcohol Use Standard Drinks/Week Comments Never 0 (1 standard drink = 0.6 oz pur e alcohol) Sex and Gender Information Value Date Recorded Sex Assigned at Not on file Legal Sex Male 9:48 PM CDT Gender Identity Not on file Sexual Orientation Not on file Last Filed Vital Signs Vital Sign Reading Time Taken Comments Blood Pressure - - Pulse - - Temperature - - Respiratory Rate - - Oxygen Saturation - - Inhaled Oxygen Concentration - - Weight 91.6 kg (202 lb) 06/13/2019 12:57 PM CDT Height 179.1 cm (5' 10.5 ) 06/13/2019 12:57 PM C DT Body Mass Index 28.57 06/13/2019 12:57 PM CDT Plan of Treatment Health Maintenance Due Date Last Done Comments DIABETES ANNUAL FOOT EXAM 1955 DIABETES ANNUAL RETINAL EXAM 1955 DIABETES HBA1C Q 6 MONTHS 1955 DIABETES MICROALBUMIN ANNUAL SCREEN 1955 LDL CHOLESTEROL ANNUAL 1955 DTAP/TDAP/TD VACCINES (1 - Tdap) 02/24/1956 PNEUMOCOCCAL VACCINE 50+ YEARS (1 of 2 - PCV) 02/23/19 56 ZOSTER VACCINE (1 of 2) 1987 RSV VACCINE (60+ or ) (1 - 1-dose 75+ series) 02/24/2012 INFLUENZA VACCINE (#1) 2024 Insurance MEDICARE PART A AND B BCBS SUPP Care Teams Printing Equipment Mechanic Apprentice Relationship Specialty Start Date End Date Hector Graham MD [address] [place] [address] PCP - General Internal Medicine 06/13/19
--- OUTSIDE RECORDS SUMMARY | 2024-12-24 09:10 | XMS_ITS | Encounter Summary ---
Author Organization [facility] Healthcare Address [address] [place] [address] Care Team Providers Care Motorcycle Service Technician Name Role Phone Willian Elise MD Primary Care Provider [phone] Encounter Details Date Type Department Care Team (Late st Contact Info) Description 12/22/2024 Orders Only [facility] Medical Group Cardiology [address] [facility] [address] [facility] [address] [place] [address] Jaiden Pisano MD [address] [facility] [address] [place] [address] Social History Tobacco Use Types Packs/Day Years Used Date Smoking Tobacco: Never Smokeless Tobacco: Current Chew Alcohol Use Standard Drinks/Week Comments No 0 (1 standard drink = 0.6 oz pur e alcohol) Sex and Gender Information Value Date Recorded Sex Assigned at Not on file Legal Sex Male 2:49 AM MICROSTRATEGY ARCHITECT DEVELOPER Gender Identity Not on file Sexual Orientation Not on file documented as of this encounter Plan of Treatment Not on file documented as of this encounter Procedures Procedure Name Priority Date/Time Associated Diagnosis Comments PROTIME-INR Routine 12/22/2024 8:30 AM MICROSTRATEGY ARCHITECT DEVELOPER documented in this encounter Results * (ABNORMAL) Protime-INR (12/22/2024 8:30 AM MICROSTRATEGY ARCHITECT DEVELOPER) INR 4.0(H) [facility] Comment: Reference Range 0.9-1.1 Moderate-intensity Warfarin Therapy 2.0-3.0 Higher-intensity Warfarin Therapy 3.0-4.0 PT 39.2(H) 9.0 - 11.5 sec [facility] Comment: For additional information, please refer to http://education.8fit - Fitness for the rest of us.Dot [email or web address] (This link is being provided for informational/ educational purposes only.) 12/22/2024 8:30 AM MICROSTRATEGY ARCHITECT DEVELOPER 12/22/2024 8:30 AM MICROSTRATEGY ARCHITECT DEVELOPER us Jaiden Pisano MD LAB BLOOD ORDERABLES Fin al Result [facility] [address] [place] [address] documented in this encounter Visit Diagnoses Not on filedocumented in this encounter Care Teams Motorcycle Service Technician Relationship Specialty Start Date End Date Willian Elise MD [address] [address] PCP - General Family Medicine 05/28/21 documented as of this encounter
--- OUTSIDE RECORDS SUMMARY | 2024-12-24 09:10 | XMS_ITS | Encounter Summary ---
Author Organization [facility] Address [address] [place] [address] Phone Care Team Providers Care Barrel Filler Head Name Role Phone Santos Alanis MD, Hector Nam Primary Care Provider Willian Elise MD Primary Care Provider [phone] Encounter Details Date Type Department Care Team (Late st Contact Info) Description 08/23/2018 Telephone [facility] Cardiology [facility] Advanced Medicine 8th [place] [address] [place] [address] Rachelle Ludwig, MPH Social History Tobacco Use Types Packs/Day Years Used Date Smoking Tobacco: Never Smokeless Tobacco: Former Alcohol Use Standard Drinks/Week Comments No 0 (1 standard drink = 0.6 oz pur e alcohol) Sex and Gender Information Value Date Recorded Sex Assigned at Not on file Legal Sex Male 2:49 AM FIELD MARKETING REPRESENTATIVE Gender Identity Not on file Sexual Orientation Not on file documented as of this encounter Plan of Treatment Not on file documented as of this encounter Visit Diagnoses Not on filedocumented in this encounter Care Teams Barrel Filler Head Relationship Specialty Start Date End Date Hector Graham Jr., MD [facility] [place] [address] PCP - General Geriatric Medicine 06/17/18 05/27/21 Willian Elise MD [address] [address] PCP - General Family Medicine 05/28/21 documented as of this encounter
--- OUTSIDE RECORDS SUMMARY | 2024-12-24 09:10 | XMS_ITS | Encounter Summary ---
Author Organization [facility] Healthcare Address [address] [place] [address] Care Team Providers Care Gluing Machine Offbearer Name Role Phone Willian Elise MD Primary Care Provider [phone] Encounter Details Date Type Department Care Team (Latest Contact Info) Description 12/23/2024 Anticoagulation Visit [facility] Medical Group Cardiology [address] [place] [address] Gary Rene RN Atrial fibrillation (CMS/HCC) [I48.91] (Primary Dx); Paroxysmal atrial fibrillation (HCC) Social History Tobacco Use Types Packs/Day Years Used Date Smoking Tobacco: Never Smokeless Tobacco: Current Chew Alcohol Use Standard Drinks/Week Comments No 0 (1 standard drink = 0.6 oz pur e alcohol) Sex and Gender Information Value Date Recorded Sex Assigned at Not on file Legal Sex Male 2:49 AM COAL SHOOTER Gender Identity Not on file Sexual Orientation Not on file documented as of this encounter Plan of Treatment Not on file documented as of this encounter Visit Diagnoses Diagnosis Atrial fibrillation (CMS/HCC) [I48.91]- Primary Paroxysmal atrial fibrillation (HCC) Atrial fibrillation documented in this encounter Care Teams Gluing Machine Offbearer Relationship Specialty Start Date End Date Willina Elise MD [address] [address] PCP - General Family Medicine 05/28/21 documented as of this encounter
--- OUTSIDE RECORDS SUMMARY | 2024-12-24 09:10 | XMS_ITS | Clinical Summary ---
Author Organization [facility] Address [address] [place] [address] Care Team Providers Care Risk Engineer Name Role Phone Hector Graham MD Primary Care Provider Unava ilable Allergies Active Allergy Reactions Criticality Noted Date Comments Aminosalicylic Acid Anaphylaxis,Shortnes s of Breath,Swelling High 07/14/2019 Naproxen Anaphylaxis,Shortness of Breath High 11/19 Medications warfarin 7.5 MG tablet 0 Active primidone 250 MG tablet Take 250 mg by mouth 3 (three) times daily. 0 Active atorvastatin 10 MG tablet Take 10 mg by mouth every other day. 9 Active metFORMIN 1000 MG tablet Take 1,000 mg by mouth daily with breakfast. 9 Active amiodarone 200 MG tablet 9 Active montelukast 10 MG tablet Take 10 mg by mouth nightly at bedtime. 9 Active telmisartan 40 MG tablet Take 40 mg by mouth nightly. 9 Active latanoprost 0.005 % ophthalmic solution 9 Active Cholecalciferol (VITAMIN D3) 25 MCG (1000 UT) Cap Vitamin D3 1,000 unit capsule Take by oral route. Active B Complex-C Tab tablet Take 1 tablet by mouth daily. Active Ascorbic Acid 1000 MG Tab CR daily. Activ e warfarin 5 MG tablet Take 5 mg by mouth daily. 2 tabs (10mg) at supper Active albuterol sulfate HFA 108 (90 Base) MCG/ACT inhaler USE 1 4 PUFFS INHALATION EVERY 4 HOURS 0 Active butalbital-acet aminophen-caffe ine 50-300-40 MG capsule TAKE 1 CAPSULE BY MOUTH EVERY 4 HOURS NEEDED FOR HEADACHE 0 Active furosemide 20 MG tablet Take 20 mg by mouth daily. 0 Active warfarin 5 MG tablet TAKE 1 TABLET BY MOUTH ON THU, , THU, THURSDAY OR DIRECTED BY YOUR PHYSICIAN 0 Active polycarbophil (FIBERCON) 625 MG tablet Take 625 mg by mouth 2 (two) times daily. Active zinc gluconate 50 MG Tab Take 50 mg by mouth daily. Active warfarin 5 MG tablet TAKE 1 TABLET BY MOUTH ON THU, , THU, THURSDAY OR DIRECTED BY YOUR PHYSICIAN 1 Active Active Problems Problem Noted Date Diagnosed Date Atherosclerosis of artery of both lower extremit ies 06/30/2022 Degeneration of lumbar intervertebral disc 07/07 Cervical disc disease 06/13/2019 Atrial fibrillation ([facility]) 05/07/2017 Paroxysmal atrial fibrillation ([facility]) 05/07/2017 Immunizations Name Administration Dates Next Due Fluzone High Dose - >Age 65 (Prefilled Syringe) 06/12/2020,07/07/2019 Influenza (Generic) 07/07/2014,06/22/2013 Pneumococcal (Prevnar 13) 07/21/2019,07/09/2017 Shingrix 12/22/2019 Tdap (Boostrix) 07/21/2019,02/11/2018 Family History Relation Status Comments Father Maternal Grandfather Maternal Grandmother Mother Paternal Grandfather Paternal Grandmother Social History Tobacco Use Types Packs/Day Years Used Date Smoking Tobacco: Never Smokeless Tobacco: Current Chew Tobacco Cessation:Ready to Q uit: No; Counseling Given: Yes Comments:1/2 pouch/day PCP to high school counselor Alcohol Use Standard Drinks/Week Comments Not Currently 0 (1 standard drink = 0.6 oz pur e alcohol) PHQ-2 Answer Date Recorded PHQ-2 Score - If the patient scores above 3, please move on to questions 3-9 0 09/27/2021 Sex and Gender Information Value Date Recorded Sex Assigned at Male 05/02/2020 10:37 AM CDT Legal Sex Male 5:14 PM CDT Gender Identity Male 05/02/2020 10:37 AM CDT Sexual Orientation Straight 05/02/2020 10 :37 AM CDT Last Filed Vital Signs Vital Sign Reading Time Taken Comments Blood Pressure 126/74 06/13/2022 11:31 AM CDT Pulse 61 06/13/2022 11:31 AM CDT Temperature 36.8 C (98.3 F) 06/13/2022 11:31 AM CDT Respiratory Rate 14 06/13/2022 11:3 1 AM CDT Oxygen Saturation 99% 06/13/2022 11: 31 AM CDT Inhaled Oxygen Concentration - - Weight 102.6 kg (226 lb 3.2 oz) 022 11:31 AM CDT Height 176.5 cm (5' 9.5 ) 06/13/2022 11 :31 AM CDT Body Mass Index 32.92 06/13/2022 11:31 AM CDT Plan of Treatment Health Maintenance Due Date Last Done Comments ASCVD LDL 1937 ASCVD Statin 1935 Annual Medicare Wellness Visit 2002 RSV Immunization or 60+ Years (1 - 1-dose 75+ series) 02/24/2012 Zoster Vaccines (2 of 2) 02/16/2020 12/22/2019 Pneumococcal Vaccine: 65+ Years (2 of 2 - PPSV23 or PCV20) 07/21/2020 07/21/2019, 07/09/2017 COVID-19 Vaccine ( - season) 2024 Influenza Adult (#1) 2024 06/12/2020, 07/07/2019, 07/07/2014, Additional history exists DTaP, Tdap and Td Vaccines (3 - Td or Tdap) 07/21/2029 07/21/2019, 02/11/2018 Meningococcal B Vaccine Aged Out No l onger eligible based on patient's age to complete this topic Meningococcal Vaccine Aged Out No jaylan stanislav eligible based on patient's age to complete this topic RSV Immunizations Under 20 Months Aged Out No longer eligible based on patient's age to complete this topic Insurance MEDICARE [facility] Care Teams Risk Engineer Relationship Specialty Start Date End Date Hector Graham MD PCP - General INTERNAL MEDICINE 05/16/19
--- OUTSIDE RECORDS SUMMARY | 2024-12-24 09:10 | XMS_ITS | Encounter Summary ---
Author Organization [facility] Healthcare Address [address] [place] [address] Care Team Providers Care Farmer And Grazier Name Role Phone Willian Elise MD Primary Care Provider [phone] Encounter Details Date Type Department Care Team (Late st Contact Info) Description 12/23/2024 Telephone [facility] Medical Group Cardiology [address] [facility] [address] [address] Jaiden Pisano MD [address] [facility] [address] [place], [place] [address] Social History Tobacco Use Types Packs/Day Years Used Date Smoking Tobacco: Never Smokeless Tobacco: Current Chew Alcohol Use Standard Drinks/Week Comments No 0 (1 standard drink = 0.6 oz pur e alcohol) Sex and Gender Information Value Date Recorded Sex Assigned at Not on file Legal Sex Male 2:49 AM UNIX ENGINEER Gender Identity Not on file Sexual Orientation Not on file documented as of this encounter Miscellaneous Notes * Telephone Encounter - Chelsie Briseno RN - 12/23/2024 9:53 AM UNIX ENGINEER Spoke with pt regarding his concerns. He was confused about INR level and thought 4.0 was too thickbut I explained that it is actually too thin. Agreed with Riaz's recommendations, reviewed those instructions with pt and he apologized for the misunderstanding. Pt will recheck INR in 10 days. ENGINEER * Telephone Encounter - Araceli Haider - 12/23/2024 9:26 AM CST Pt called extremely upset. He stated he had a nurse call to discuss his INR. It is high and the nurse Gary RN told him to reduce the dosage of his warfarin to 5 mg instead of the 7.5 mg. He said that he should be taking more since his blood is think. He kept cussing and raising his voice over the phone stating that the nurse needs to be fired and if he has a heart attack because of this he is going to robert. He also said that if he doesn't hear back in an hour he is going to get in the car anddrive over there and give them a piece of his mind and they are probably going to have to call the deputy district customs director on him. He also stated that his is going to kick Gary's butt. He is requesting a call back from a nurse or MJF himself to discuss this. He does not want to speak with Gary. Please advise. Thank you. Contact: ENGINEER ENGINEER documented in this encounter Plan of Treatment Not on file documented as of this encounter Visit Diagnoses Not on filedocumented in this encounter Care Teams Farmer And Grazier Relationship Specialty Start Date End Date Willian Elise MD [address] [address] PCP - General Family Medicine 05/28/21 documented as of this encounter
--- OUTSIDE RECORDS SUMMARY | 2024-12-24 09:10 | XMS_ITS | Continuity of Care Document ---
Author Organization [facility] Address [address] [place] [address] [facility] [address] [place] [address] Phone Care Team Providers Care Registered Nurse Midwife Name Role Phone Haris Hinojosa Unavailable Unavailable Procedures Procedure Date Eye Exam, New Patient Dilated Retinal Exam W Interpretation Se Refraction Advance Directives Directive Yes / No Effective Date File Name No Information Encounters Encounter Description Practice Location Reason(s) For Visit Diagnoses Date Provider Providers Copied on Encounter [facility], [address], [place], [place], [id number], [place] tel:[phone] [facility] No Information [address]ela Carballo. [address] [facility] [address], [place], [address], [place]. tel:[phone] Family History Family Member Type Diagnosis Age At Onset No Information Payers Payer name Insurance type Covered libertarian ID Authoriza tion(s) [place] [id number] [id number] Social History Type Description Quantity Date Captured [...]
--- OUTSIDE RECORDS SUMMARY | 2024-12-24 09:10 | XMS_ITS | Clinical Summary ---
Author Organization [facility] [address] Address [address] [place] [address] Care Team Providers Care Biodiesel Process Control Technician Name Role Phone Willian Elise MD Primary Care Provider [phone] Allergies Active Allergy Reactions Criticality Noted Date Comments Aminosalicylic Acid Anaphylaxis,Shortnes s of breath,Swelling High 07/14/2019 Naproxen Swelling High 04/18/2011 Sodium Unknown 07/14/2019 Medications metFORMIN (GLUCOPHAGE) 1,000 mg tablet take 1 tablet by oral route 2 times every day with morning and evening meals 0 0 5 Active Additional Information Patient not taking.Reported on 06/30/2024 latanoprost (XALATAN) 0.005 % ophthalmic solution instill 1 drop by ophthalmic route every day into affected eye(s) in the evening 0 0 5 Active ascorbic acid (vitamin C) 100 mg tablet take 1 by Oral route once 0 0 5 Active Additional Information Patient taking differently: 1,000 mg oral Daily, Reported on 07/02/2023 montelukast (SINGULAIR) 10 mg tablet take 1 tablet by oral route every day in the evening 0 0 5 Active telmisartan (MICARDIS) 80 mg tablet take 1 tablet by oral route every day 0 0 6 Active atorvastatin (LIPITOR) 10 mg tablet take 1 tablet by oral route every day at bedtime 0 0 7 Active primidone (MYSOLINE) 250 mg tablet Take 1 tablet (250 mg total) by mouth 4 (four) times a day Active cholecalciferol (VITAMIN D-3) 2000 unit capsule Take 2 capsules (4,000 Units total) by mouth daily Active albuterol HFA (PROVENTIL HFA,VENTOLIN HFA,PROAIR HFA) 90 mcg/actuation inhaler INHALE 1 TO 2 PUFFS BY MOUTH EVERY 4 HOURS NEEDED FOR SHORTNESS OF BREATH OR WHEEZING 3 Active fexofenadine (ALEXI) 60 mg tablet Take 1 tablet (60 mg total) by mouth daily Active vitamin B complex capsule Take 1 capsule by mouth daily Active triamcinolone (KENALOG) 0.1 % creamIndications :Irritant contact dermatitis, unspecified trigger Apply topically 2 (two) times a day for 7 days 45 g 1 3 Active amiodarone (PACERONE) 200 mg tablet TAKE 1 TABLET BY MOUTH EVERY DAY 90 tablet 2 4 Active warfarin (COUMADIN) 7.5 mg tablet Take 1 tablet (7.5 mg total) by mouth daily 90 tablet 4 Active furosemide (LASIX) 20 mg tablet TAKE 1 TABLET BY MOUTH EVERY DAY 90 tablet 1 4 Active warfarin (COUMADIN) 5 mg tablet TAKE 5 MG (1 TABLET) 5 DAYS A WEEK (SUN, MON, WED, FRI, SAT.) AND 7.5 MGS ON TUESDAYS AND THURSDAYS OR DIRECTED. 90 tablet 4 Active Active Problems Problem Noted Date Diagnosed Date Atrial fibrillation (CMS/HCC) [I48.91] 7 Paroxysmal atrial fibrillation 05/07/2017 Encounters Date Type Department Care Team Description 12/23/2024 Telephone [facility] Cardiology [address] [place] [address] Jaiden Pisano MD 12/23/2024 Anticoagulation Visit [facility] Cardiology [address] [place] [address] Gary Rene RN Atrial fibrillation ([facility]/HCC) [I48.91] (Primary Dx); Paroxysmal atrial fibrillation (HCC) 12/22/2024 Orders Only [facility] Cardiology [address] [place] [address] Jaiden Pisano MD 11/17/2024 Anticoagulation Visit [facility] Medical [facility] Cardiology [address] [place] [address] Chelsie Briseno RN Atrial fibrillation (CMS/HCC) [I48.91] (Primary Dx); Paroxysmal atrial fibrillation (HCC) 11/16/2024 Orders Only [facility] Cardiology [address] [place] [address] Jaiden Pisano MD 10/05/2024 Anticoagulation Visit [facility] Cardiology [address] [place] [address] Chelsie Briseno RN Atrial fibrillation (CMS/HCC) [I48.91] (Primary Dx); Paroxysmal atrial fibrillation (HCC) from Last 3 Months Medical History Medical History Date Comments Atrial fibrillation (HCC) Social History Tobacco Use Types Packs/Day Years Used Date Smoking Tobacco: Never Smokeless Tobacco: Current Chew Tobacco Cessation:Ready to Q uit: Not Asked; Counseling Given: Not Answered Alcohol Use Standard Drinks/Week Comments No 0 (1 standard drink = 0.6 oz pur e alcohol) Sex and Gender Information Value Date Recorded Sex Assigned at Not on file Legal 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 Gender Identity Not on file Sexual Orientation Not on file Obstetrics History Last Filed Vital Signs Vital Sign Reading Time Taken Comments Blood Pressure 98/56 06/30/2024 8:41 AM CDT Pulse 62 06/30/2024 8:41 AM CDT Temperature - - Respiratory Rate 12 05/12/2017 11:04 AM CDT Oxygen Saturation 98% 06/30/2024 8:41 AM CDT Inhaled Oxygen Concentration - - Weight 99.1 kg (218 lb 6.4 oz) 06/30/2024 8:41 A M CDT Height 180.3 cm (5' 11 ) 06/30/2024 8:41 AM CDT Body Mass Index 30.46 06/30/2024 8:41 AM CDT Plan of Treatment Health Maintenance Due Date Last Done Comments Depression Screening 1937 Fall Risk Assessment 1937 Hepatitis B Screening 1953 Well Visit 65+ 2002 Pneumococcal vaccine 65+ (2 of 2 - PPSV23) 07/21/2020 07/21/2019, 07/09/2017 DTaP/Tdap/Td Vaccine (3 - Td or Tdap) 07/21/2029 07/21/2019, 02/11/2018 Zoster Vaccine Completed 12/22/2019, 12/17/2019 Influenza Vaccine Completed 08/16/2024, , 07/07/2019, Additional history exists Procedures Procedure Name Priority Date/Time Associated Diagnosis Comments PROTIME-INR Routine 12/22/2024 8:30 AM SUPERVISOR [employer]ING [employer]MENT PROTIME-INR Routine 11/16/2024 12:36 PM SUPERVISOR [employer] PROTIME-INR Routine 10/04/2024 9:05 AM SUPERVISOR [employer]OVING [employer]MENT Paroxysmal atrial fibrillation (HCC) Chronic anticoagulation from Last 3 Months Results * (ABNORMAL) Protime-INR (12/22/2024 8:30 AM SUPERVISOR ROVING [employer]PARTMENT) INR 4.0(H) [facility] Comment: Reference Range 0.9-1.1 Moderate-intensity Warfarin Therapy 2.0-3.0 Higher-intensity Warfarin Therapy 3.0-4.0 PT 39.2(H) 9.0 - 11.5 sec Rebeca [facility]once Comment: For additional information, please refer to http://education.Eqlim/faq/KJB404 (This link is being provided for informational/ educational purposes only.) 12/22/2024 8:30 AM SUPERVISOR ROVING [employer]PARTMENT 12/22/2024 8:30 AM SUPERVISOR [employer]OVING [employer] us Jaiden Pisano MD LAB BLOOD ORDERABLES Fin al Result All [facility] Ponce [address] [place] [address] * (ABNORMAL) Protime-INR (11/16/2024 12:36 PM SUPERVISOR [employer]OVING [employer]MENT) INR 3.3(H) Rebeca [facility] Comment: Reference Range 0.9-1.1 Moderate-intensity Warfarin Therapy 2.0-3.0 Higher-intensity Warfarin Therapy 3.0-4.0 PT 32.4(H) 9.0 - 11.5 sec [facility] Comment: For additional information, please refer to http://Ingenicard America.Eqlim/faq/PVP708 (This link is being provided for informational/ educational purposes only.) 11/16/2024 12:3 6 PM SUPERVISOR [employer]OV[employer]MENT 11/16/2024 12:37 PM SUPERVISOR [employer] Jaiden Pisano MD LAB BLOOD ORDERABLES Fin al Result Performing Organization Address [facility] Co de Phone Number [facility] [address] [place] [address] * (ABNORMAL) Protime-INR (10/04/2024 9:05 AM SUPERVISOR [employer]OVING [employer]MENT) INR 3.3(H) [facility] Comment: Reference Range 0.9-1.1 Moderate-intensity Warfarin Therapy 2.0-3.0 Higher-intensity Warfarin Therapy 3.0-4.0 PT 32.3(H) 9.0 - 11.5 sec [facility] Comment: For additional information, please refer to http://Ingenicard America.Eqlim/faq/JVS647 (This link is being provided for informational/ educational purposes only.) Blood 10/04/2024 9:05 AM SUPERVISOR [employer]MENT 10/04/2024 9:06 AM SUPERVISOR [employer] Jaiden Pisano MD LAB BLOOD ORDERABLES Fin al Result Performing Organization Address City/[facility] Co de Phone Number [facility] [address] [place] [address] from Last 3 Months Insurance MEDICARE [facility] MEDICARE [facility] Care Teams Biodiesel Process Control Technician Relationship Specialty Start Date End Date Willian Elise MD [address] [place] [address] PCP - General Family Medicine 05/28/21
--- OUTSIDE RECORDS SUMMARY | 2024-12-24 09:10 | XMS_ITS | Continuity of Care Document ---
Author Organization [facility] Address [address] [place] [address] Phone Care Team Providers Care Master Baker Name Role Phone Unavailable Unavailable Unavailable Allergies, Adverse Reactions, Alerts Substance Reaction Status Criticality naproxen Active No Information Procedures Procedure Date Asp/inject major joint or bursa 012 Kenalog Triamcinolone acetonide inj MRI upr extr joint, w/o contrast 2011 Office/outpatient visit,[facility] 2011 Advance Directives Directive Yes / [...] Date Provider Providers Copied on Encounter [facility], [address], [place], [place], [id number], [place] tel:[phone] [facility] JOINT PAIN-SHLDER SHOULDER REGION DIS NECLOC PRIM OSTEOART-SH LDERROTATOR CUFF DIS NEC -201 2 No Information [facility], [address], [place], [place], [id number], [place] tel:[phone] [facility] ROTATOR CUFF SYND NOSROTATOR CUFF DIS NECLOC PRIM OSTEOART-SH LDER Jun- 2 [facility]. [address], [place], [place], [id number], [place]. tel:[phone] Office/outpat ient visit,[facility], [address], [place], [place], [id number], tel:[phone] [facility] Office SHOULDER REGION DIS NECJOINT PAIN-SHLDER Jun- 2 No Information Family History Family Member Type Diagnosis Age At Onset No Information Immunizations Vaccine Date Status Comments Flu (split) (3 yrs or older) administered Source: New Immunization Record pneumo (2 yrs or older) (PPV23) administered Source: New Immuniza tion Record Payers Payer name Insurance type Covered green party ID Authoriza tion(s) Medicare [place] Part B [id number] [id number] Social History Type Description Quantity Date [...]
--- OUTSIDE RECORDS SUMMARY | 2024-12-24 09:10 | XMS_ITS | Referral Summary ---
Author Organization [place] [address] Address [address] [place] [address] Care Team Providers Care Online Content Editor Name Role Phone Willian Elise MD Primary Care Provider [phone] Encounters Date Type Department Care Team Description 12/23/2024 Telephone [facility] Cardiology [address] [place] [address] [address] [place] [address] Jaiden Pisano MD 12/23/2024 Anticoagulation Visit [facility] Cardiology [address] [place] [address] [address] [place] [address] Gary Rene RN Atrial fibrillation ([facility]/HCC) [I48.91] (Primary Dx); Paroxysmal atrial fibrillation (HCC) 12/22/2024 Orders Only [facility] Cardiology [address] [place] [address] [address] [place] [address] Jaiden Pisano MD 11/17/2024 Anticoagulation Visit [facility] Cardiology [address] [place] [address] [address] [place] [address] Chelsie Briseno RN Atrial fibrillation ([facility]/HCC) [I48.91] (Primary Dx); Paroxysmal atrial fibrillation (HCC) 11/16/2024 Orders Only [facility] Cardiology [address] [place] [address] [address] [place] [address] Jaiden Pisano MD 10/05/2024 Anticoagulation Visit [facility] Cardiology [address] [place] [address] [address] [place] [address] Delassus, Chelsie K., RN Atrial fibrillation ([facility]) [I48.91] (Primary Dx); Paroxysmal atrial fibrillation (HCC) from Last 3 Months Allergies Active Allergy Reactions Criticality Noted Date [...] day for 7 days 45 g 1 11/20/202 3 Active amiodarone (PACERONE) 200 mg tablet [...] MG (1 TABLET) 5 DAYS A WEEK (THU, MON, WED, THU, SAT.) AND 7.5 MGS ON TUESDAYS AND THURSDAYS OR DIRECTED. 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 Gender Identity Not on file Sexual Orientation [...] 06/30/2024 8:41 AM CDT Plan of Treatment Not on file Procedures Procedure Name Priority Date/Time Associated Diagnosis Comments PROTIME-INR Routine 12/22/2024 8:30 AM OPERATIONS ANALYST PROTIME-INR Routine 11/16/2024 12:36 PM OPERATIONS ANALYST PROTIME-INR Routine 10/04/2024 9:05 AM OPERATIONS ANALYST Paroxysmal atrial fibrillation (HCC) Chronic anticoagulation from Last 3 Months Results * (ABNORMAL) Protime-INR (12/22/2024 8:30 AM OPERATIONS ANALYST) INR 4.0(H) [facility] Comment: Reference Range 0.9-1.1 Moderate-intensity Warfarin Therapy 2.0-3.0 Higher-intensity Warfarin Therapy 3.0-4.0 PT 39.2(H) 9.0 - 11.5 sec [facility] Comment: For additional information, please refer to [email or web address].com.Thereson S.[email or web address]./faq/YSF672 (This link is being provided for informational/ educational purposes only.) 12/22/2024 8:30 AM OPERATIONS ANALYST 12/22/2024 8:30 AM OPERATIONS ANALYST Jaiden Pisano MD LAB BLOOD ORDERABLES Fin al Result Performing Organization Address [facility] Co de Phone Number [facility] [address] [place] [address] * (ABNORMAL) Protime-INR (11/16/2024 12:36 PM OPERATIONS ANALYST) INR 3.3(H) [facility] Comment: Reference Range 0.9-1.1 Moderate-intensity Warfarin Therapy 2.0-3.0 Higher-intensity Warfarin Therapy 3.0-4.0 PT 32.4(H) 9.0 - 11.5 sec [facility] Comment: For additional information, please refer to [email or web address].Thereson S.[email or web address]/EZV332 (This link is being provided for informational/ educational purposes only.) 11/16/2024 12:3 6 PM OPERATIONS ANALYST 11/16/2024 12:37 PM OPERATIONS ANALYST Jaiden Pisano MD LAB BLOOD ORDERABLES Fin al Result [facility] [address] [place] [address] * (ABNORMAL) Protime-INR (10/04/2024 9:05 AM OPERATIONS ANALYST) INR 3.3(H) [facility]once Comment: Reference Range 0.9-1.1 Moderate-intensity Warfarin Therapy 2.0-3.0 Higher-intensity Warfarin Therapy 3.0-4.0 PT 32.3(H) 9.0 - 11.5 sec [employer] [facility] Ponce Comment: For additional information, please refer to http://education.Thereson S.p.A./faq/AOX439 (This link is being provided for informational/ educational purposes only.) Blood 10/04/2024 9:0 5 AM OPERATIONS ANALYST 10/04/2024 9:06 AM OPERATIONS ANALYST Jaiden Pisano MD LAB BLOOD ORDERABLES Fin al Result [facility] [address] [place] [address] from Last 3 Months Insurance MEDICARE [facility] MEDICARE [facility] Care Teams Online Content Editor Relationship Specialty Start Date End Date Willian Elise MD [address] [address] PCP - General Family Medicine 05/28/21
[2024-12-24 09:21] LABS: Basophils Percent Auto 0.4 % (0.2-1.2); Eosinophils Absolute Auto 0.1 K/mm3 (0-0.3); Eosinophils Percent Auto 1.4 % (0-4.4); Hematocrit 40.4 % (42.0-52.0); Hemoglobin 13.7 g/dL (14.0-18.0); Immature Granulocyte Absolute 0.01 K/mm3 (0.00-0.031); Immature Granulocyte Percent A 0.2 % (0-0.5); Lymphocytes Absolute Auto 1.19 K/mm3 (0.9-3.2); Lymphocytes Percent Auto 23.9 % (18.3-44.2); Mean Corpuscular HGB Conc 33.9 g/dl (32-36); Mean Corpuscular Hemoglobin 32.9 pg (26-34); Mean Corpuscular Volume 97.1 fl (80-100); Mean Platelet Volume 9.3 fl (7.4-10.4); Monocytes Absolute Auto 0.5 K/mm3 (0.1-0.6); Monocytes Percent Auto 9.4 % (2.6-8.5); Neutrophils Absolute Auto 3.2 K/mm3 (1.3-6.7); Neutrophils Percent Auto 64.7 % (45.5-73.1); Platelet Count Result 201 k/mm3 (150-375); Red Blood Count 4.16 M/mm3 (4.6-6.20); Red Cell Distribution Width 13.8 % (11.5-14.5)
[2024-12-24 09:31] LABS: INR 3.2; Prothrombin Time 33.3 Seconds (11.1-14.7)
[2024-12-24 09:32] LABS: Partial Thromboplastin Time 39.1 Seconds (22.3-36.8)
[2024-12-24 09:41] LABS: NT Pro B Type Natriuretic Pept 601 pg/mL (19.9-100)
--- NOTE | 2024-12-24 09:53 | ED.GENADULT ---
HPI - General Adult General Chief complaint: Arrhythmia/Palpitations Stated complaint: CHEST FLUTTERING Time Seen by Provider: 12/24/24 09:02 History of Present Illness HPI narrative: 89-year-old male presents to the emergency department for evaluation of chest pressure and heart palpitations. Patient states that yesterday when he was getting out of his chair he would have some chest tightness but when he walked and ambulated he had no heart palpitations or chest tightness. Patient denies any current shortness of breath, denies any recent nausea vomiting diarrhea denies any recent illness. Patient states he has not been drinking of water. Patient did have an elevated INR yesterday was told to hold his Coumadin. 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 Related Data Home Medications ?Medication ?Instructions ?Recorded ?Confirmed ?Last Taken ?Type latanoprost 0.005 % eye drops 1 drop ophthalmic (eye) 03/28/20 12/12/24 05/19/23 21:00 History B-complex with vitamin C 1 tablet PO 05/09/20 12/12/24 05/19/23 21:00 History amiodarone 200 mg tablet 200 mg PO DAILY 05/09/20 12/12/24 05/20/23 08:00 History ascorbic acid (vitamin C) 1,000 mg 1 g PO 05/09/20 12/12/24 05/19/23 21:00 History tablet warfarin 5 mg tablet 5 mg PO 2XW 05/09/20 12/12/24 05/17/23 17:00 History warfarin 7.5 mg tablet 7.5 mg PO DAILY 05/09/20 12/12/24 05/20/23 17:00 History cholecalciferol (vitamin D3) 75 75 mcg PO DAILY 05/07/21 12/12/24 05/20/23 08:00 History mcg (3,000 unit) tablet loratadine 10 mg tablet (Allergy 10 mg PO DAILY 06/19/23 12/12/24 Unknown History Relief (loratadine)) furosemide 20 mg tablet 20 mg PO QA 10/06/24 12/12/24 Unknown History Allergies Allergy/AdvReac Type Severity Reaction Status Date / Time naproxen Allergy Severe SWELLING/SO Verified 12/12/24 08:18 B Review of Systems Review of Systems: All systems reviewed & are unremarkable except as noted in HPI and below PMFSH Past Medical History Medical History BMI 31.0-31.9,adult Hypertension Pneumonia Constipation Spondylosis of lumbar spine Pancreatic lesion BMI 32.0-32.9,adult Anemia Acute respiratory failure with hypoxia Pneumonia due to COVID-19 virus Edema, lower extremity Encounter to establish care Arthritis Seasonal allergies Cervical vertebral fusion Glaucoma Cataract Hearing loss Headache Hyponatremia Neck pain, acute Unspecified fall, initial encounter Routine eye exam Eye exam normal Chronic atrial fibrillation Chronic diastolic (congestive) heart failure Essential tremor Mixed hyperlipidemia Type 2 diabetes mellitus without complication, without long-term current use of insulin Family History Family History Father Cerebrovascular accident Sibling Asthma Other Diabetes mellitus Family history of arthritis Hypertension Social History Social History Social History: patient is a nonsmoker and never has smoked. He does not use alcohol or drugs. 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 His power of examination scorer is Jia Leon, daughter. He would like to be a full code Smoking status: Never smoker Tobacco type: smokeless tobacco Smokeless tobacco user: chewing tobacco Second hand tobacco smoke exposure: No Alcohol intake: never Substance use: never Substance use type: does not use Lack of Transportation: No Lack of Food: Never True Current Housing: I Have Housing Concerned About Future Housing: No Difficulty Paying Gas/Electric Bills: No Difficulty Paying for Meds: No Currently Unemployed: No Education: High School Diploma/GED Difficulty w/ Childcare or Family Care: No Living arrangements: with family Occupation/Education: retired Gender identity (if verbalized by the patient): Male Sexual Orientation (if Verbalized by the Patient): Straight or Heterosexual Spiritual care concerns: No Agree to blood products: Yes Exam Narrative: APPEARANCE: Well appearing, no pain, no distress, well-nourished. HEAD: normocephalic, atraumatic. EYES: PERRLA/EOMI, conjunctivae clear. NOSE: Normal no drainage EARS:TMS clear with good light reflex. THROAT: Pharynx clear, no exudate. NECK: Supple. No adenopathy, no masses. RESPIRATORY: Airway patent, respirations nonlabored. Clear to auscultation bilaterally, no rales, rhonchi, wheezing. CARDIOVASCULAR: Regular rate and rhythm without murmurs rubs or gallops. ABDOMINAL: Soft, nontender, nondistended, normal bowel sounds MUSCULOSKELETAL: Moves all extremities. Strength/ROM intact, No edema, No calf tenderness. NEURO: Alert. Cranial nerves II through XII intact. Grossly intact SKIN: Warm, dry. Normal Color Course Vital Signs Vital signs: Vital Signs Temperature 97.6 F 12/24/24 09:03 Pulse Rate 53 L 12/24/24 09:03 Respiratory Rate 19 12/24/24 09:03 Blood Pressure 171/71 H 12/24/24 09:03 Pulse Oximetry 99 12/24/24 09:03 Oxygen Delivery Room Air 12/24/24 09:03 Temperature 97.6 F 12/24/24 09:03 Pulse Rate 58 L 12/24/24 11:53 Respiratory Rate 16 12/24/24 11:53 Blood Pressure 139/62 12/24/24 11:53 Pulse Oximetry 99 12/24/24 11:53 Oxygen Delivery Room Air 12/24/24 09:03 Medical Decision Making [facility] Narrative Medical decision making narrative: 89-year-old male presents emergency department for evaluation for intermittent dizziness and some chest tightness. Patient describes chest tightness when he was using his arms to push himself up from the chair. Patient denies any chest tightness or chest pain when he was walking or otherwise exerting himself. Patient feels that some of his symptoms were secondary to anxiety. Patient is afebrile with no leukocytosis and hemoglobin of 13.7. Patient's INR was 3.2. Patient had no acute abnormalities on his CMP patient had negative serial troponins and normal serial EKGs. Patient had no AFib with RVR while he was present in the emergency department. Patient was negative for influenza RSV and for COVID. Patient and family were updated the results of the workup they are comfortable plan for discharge and close follow-up. They do have follow-up with Cardiology scheduled for the this month. Differential Diagnosis Differential Diagnosis: COVID, RSV, influenza a, supratherapeutic INR, ACS Vital Signs Vital Signs: Vital Signs Temperature 97.6 F 12/24/24 09:03 Pulse Rate 53 L 12/24/24 09:03 Respiratory Rate 19 12/24/24 09:03 Blood Pressure 171/71 H 12/24/24 09:03 Pulse Oximetry 99 12/24/24 09:03 Oxygen Delivery Room Air 12/24/24 09:03 Temperature 97.6 F 12/24/24 09:03 Pulse Rate 58 L 12/24/24 11:53 Respiratory Rate 16 12/24/24 11:53 Blood Pressure 139/62 12/24/24 11:53 Pulse Oximetry 99 12/24/24 11:53 Oxygen Delivery Room Air 12/24/24 09:03 Lab Data Lab results reviewed: Yes I reviewed the patient's lab results. 12/24/24 09:13 12/24/24 09:13 Labs: Lab Results 12/24/24 12/24/24 Range/Units 09:13 13:25 WBC 5.0 (4.5-10.0) K/mm3 RBC 4.16 L (4.6-6.20) M/mm3 Hgb 13.7 L (14.0-18.0) g/dL Hct 40.4 L (42.0-52.0) % MCV 97.1 (80-100) fl MCH 32.9 (26-34) pg MCHC 33.9 (32-36) g/dl RDW 13.8 (11.5-14.5) % Plt Count 201 (150-375) k/mm3 MPV 9.3 (7.4-10.4) fl Immature Gran % (Auto) 0.2 (0-0.5) % Neut % (Auto) 64.7 (45.5-73.1) % Lymph % (Auto) 23.9 (18.3-44.2) % Mcclain % (Auto) 9.4 H (2.6-8.5) % Eos % (Auto) 1.4 (0-4.4) % Baso % (Auto) 0.4 (0.2-1.2) % Lymph # (Auto) 1.19 (0.9-3.2) K/mm3 [place]cl[place] # (Auto) 0.5 (0.1-0.6) K/mm3 Eos # (Auto) 0.1 (0-0.3) K/mm3 Baso # (Auto) 0.0 (0.0-0.1) K/mm3 Abs Immat Gran (auto) 0.01 (0.00-0.031) K/mm3 Absolute Neuts (auto) 3.2 (1.3-6.7) K/mm3 Absolute Nucleated RBC 0.000 (0.0-0.012) K/mm3 Nucleated RBC % 0.0 (0.0-0.2) % PT 33.3 H (11.1-14.7) Seconds INR 3.2 APTT 39.1 H (22.3-36.8) Seconds Sodium 133 L (137-145) mmol/L Potassium 4.4 (3.4-5.0) mmol/L Chloride 97 L (98-107) mmol/L Carbon Dioxide 27 (22-30) mmol/L Anion Gap 9 (4-12) mmol/L BUN 15 (9-20) mg/dL Creatinine 0.88 (0.7-1.3) mg/dL Estim Creat Clear Calc 62 ml/min Estimated GFR > 60 (59 - ) Glucose 112 H (65-110) mg/dL Calcium 8.6 (8.4-10.2) mg/dL Magnesium 2.2 (1.6-2.3) mg/dL Total Bilirubin 0.4 (0.2-1.3) mg/dL AST 33 (17-59) U/L ALT 26 (6-50) U/L Alkaline Phosphatase 91 (38-126) U/L Troponin I < 0.012 < 0.012 (0.000-0.034) ng/mL NT-Pro-B Natriuret Pep 601 H (19.9-100) pg/mL Total Protein 7.0 (6.3-8.2) g/dL Albumin 4.1 (3.5-5.1) g/dL TSH (Reflex) 1.020 (0.465-4.68) uIU/mL Influenza A (RT-PCR) Negative (Negative) Influenza B (RT-PCR) Negative (Negative) RSV (RT-PCR) Negative (Negative) SARS-CoV-2 RNA (RT-PCR) Negative (Negative) Discharge Plan Discharge Clinical Impression: Chest tightness Patient Disposition: Home, Self-Care Condition: Stable Instructions: Antibiotic Form, Heart Palpitations (DC) Additional Instructions: Have close follow-up with your primary care physician and Cardiology as scheduled. If you have any worsening symptoms then please call or return to the emergency department. Patient Language: Faroese Prescriptions: No Action latanoprost 0.005 % drops 1 drop ophthalmic (eye) HS Rx Instructions: 1 drop into both eyes at bedtime cholecalciferol (vitamin D3) 75 mcg (3,000 unit) tablet 75 mcg PO DAILY loratadine [Allergy Relief (loratadine)] 10 mg tablet 10 mg PO DAILY albuterol sulfate 90 mcg/actuation HFA aerosol inhaler 1 - 2 inh inhalation Q4H PRN (Reason: shortness of breath or wheezing) Qty: 8.5 5RF fluticasone propionate [Flonase Allergy Relief] 50 mcg/actuation spray,suspension 2 spray intranasal DAILY Qty: 48 4RF Rx Instructions: administer into each nostril 1 or 2 sprays once or twice daily p.r.n. congestion fluticasone propionate 50 mcg/actuation spray,suspension See Rx Instructions .ROUTE .COMPLEX Qty: 48 1RF Dose Instruction: SPRAY TWICE INTRANASALLY INTO EACH NOSTRIL DAILY Rx Instructions: SPRAY TWICE INTRANASALLY INTO EACH NOSTRIL DAILY furosemide 20 mg tablet 20 mg PO QAM ascorbic acid (vitamin C) 1,000 mg Tablet 1 g PO HS amiodarone 200 mg tablet 200 mg PO DAILY warfarin 7.5 mg Tablet 7.5 mg PO DAILY warfarin 5 mg Tablet 5 mg PO 2XW Rx Instructions: TAKE ON THURSDAY AND THURSDAY B-complex with vitamin C Tablet 1 tablet PO HS acetaminophen [Mapap (acetaminophen)] 325 mg Tablet 650 mg PO Q6H PRN (Reason: Mild Pain (1-3) Or Fever) Qty: 0 0RF primidone 250 mg tablet 250 mg PO TID Qty: 270 3RF montelukast 10 mg tablet 10 mg PO QHS Qty: 90 3RF telmisartan 40 mg tablet 40 mg PO DAILY Qty: 90 3RF atorvastatin 10 mg tablet 10 mg PO EVERY OTHER DAY Qty: 90 3RF Rx Instructions: Take Thursday, Thursday, , Thursday Follow-up/Referrals: Jolynn Greene NP [Primary Care Provider] - Quality HEART score for chest pain patients History: slightly suspicious ECG: normal Age: > or = to 65 years Risk factors: 1 or 2 risk factors Troponin: < or = to 1x normal limit Heart score: 3
[2024-12-24 09:57] LABS: Influenza A QL RT-PCR Negative (Negative); Influenza B QL RT-PCR Negative (Negative); RSV RNA, RT-PCR Negative (Negative); SARS-CoV-2 RNA PCR Negative (Negative)
[2024-12-24 10:24] LABS: Troponin I < 0.012 ng/mL (0.000-0.034)
[2024-12-24 10:32] LABS: Alanine Aminotransferase 26 U/L (6-50); Albumin Level 4.1 g/dL (3.5-5.1); Alkaline Phosphatase 91 U/L (38-126); Anion Gap 9 mmol/L (4-12); Aspartate Amino Transferase 33 U/L (17-59); Bilirubin,Total 0.4 mg/dL (0.2-1.3); Blood Urea Nitrogen 15 mg/dL (9-20); Calcium 8.6 mg/dL (8.4-10.2); Carbon Dioxide 27 mmol/L (22-30); Chloride 97 mmol/L (98-107); Estimated CRCL calculation 62 ml/min; Estimated Glomerular Filt Rate > 60; Glucose 112 mg/dL (65-110); Magnesium 2.2 mg/dL (1.6-2.3); Potassium 4.4 mmol/L (3.4-5.0); Sodium 133 mmol/L (137-145)
[2024-12-24 11:53] VITALS: BP 139/62; PULSE 58; RESP 16; O2SAT 99
--- NOTE | 2024-12-24 13:25 | ECG_ITS ---
Test Date: 2024-12-24 13:33:04 Measurements Intervals [place] Rate: 51 P: 15 [place]: 181 QRS: -7 QRSD: 88 T: 32 QT: 414 QTc: 384 Interpretive Statements BASELINE ARTIFACT, DIFFICULT INTERPRETATION SINUS VERSUS ECTOPIC ATRIAL BRADYCARDIA LOW QRS VOLTAGE BORDERLINE ECG Compared to ECG 12/24/2024 09:15:36 NO OBVIOUS CHANGE Electronically Signed On 12-24-2024 16:06:04 EXAMINATION GRADER by Jaiden Pisano M.D.
[2024-12-24 13:58] LABS: Troponin I < 0.012 ng/mL (0.000-0.034)
== END 2024-12-24 14:41 | disposition home or self-care (01) ==
PROVIDERS: Emergency Provider Emergency Medicine; PCP Nurse Practitioner Family
DX: R07.89 Other chest pain (principal); Z79.01 Long term (current) use of anticoagulants; H40.9 Unspecified glaucoma; I50.32 Chronic diastolic (congestive) heart failure; I11.0 Hypertensive heart disease with heart failure; I48.20 Chronic atrial fibrillation, unspecified; E78.2 Mixed hyperlipidemia; E11.9 Type 2 diabetes mellitus without complications; Z20.822 Contact with and (suspected) exposure to COVID-19
CPT/HCPCS: 36415; 80053; 83735; 83880; 84443; 84484; 85025; 85610; 85730; 87637; 93005; 99284

== ENCOUNTER 2025-05-22 20:53 | Emergency (ER) | payer MEDICARE, SELFPAY ==
--- NOTE | ~2025-05-22 | XR_ITS ---
CHEST RADIOGRAPH CLINICAL HISTORY: syncopal episode . COMPARISON: 08/30/2023 TECHNIQUE: Single portable view of the chest. FINDINGS The cardiomediastinal silhouette is enlarged, unchanged. Significant elevation of the left hemidiaphragm with adjacent compressive atelectasis. Calcified granuloma within the right upper lobe, unchanged. The remainder of the lungs are clear. IMPRESSION: Elevation of the left hemidiaphragm with adjacent compressive atelectasis, without focal infiltrate o r effusion. Reviewed, dictated and finalized at location A. IMPRESSION: Elevation of the left hemidiaphragm with adjacent compressive atelectasis, with out focal infiltrate or effusion.
[2025-05-22 20:53] VITALS: BP 122/53; PULSE 58; RESP 14; TEMP 36.4; O2SAT 100
--- NOTE | 2025-05-22 21:02 | ECG_ITS ---
Test Date: 2025-05-22 21:21:50 Measurements Intervals [place] Rate: 55 P: 0 [place]: 0 QRS: -46 QRSD: 94 T: 41 QT: 432 QTc: 414 Interpretive Statements SINUS BRADYCARDIA BORDERLINE AV CONDUCTION DELAY CONSIDER ANTERIOR INFARCT, AGE INDETERMINATE INFERIOR INFARCT, AGE INDETERMINATE BASELINE ARTIFACT- I, II, AVR ABNORMAL ECG Compared to ECG 12/24/2024 13:33:04 NO SIGNIFICANT CHANGE Electronically Signed On 05-23-2025 06:24:16 CDT by Juancarlos Marx D.O.
[2025-05-22 21:27] LABS: Hematocrit 41.1 % (42.0-52.0); Hemoglobin 14.0 g/dL (14.0-18.0); Mean Corpuscular HGB Conc 34.1 g/dl (32-36); Mean Corpuscular Hemoglobin 33.0 pg (26-34); Mean Corpuscular Volume 96.9 fl (80-100); Platelet Count Result 203 k/mm3 (150-375); Red Blood Count 4.24 M/mm3 (4.6-6.20); White Blood Count 11.6 K/mm3 (4.5-10.0)
[2025-05-22 21:39] LABS: Alanine Aminotransferase 20 U/L (6-50); Albumin Level 3.9 g/dL (3.5-5.1); Alkaline Phosphatase 94 U/L (38-126); Anion Gap 6 mmol/L (4-12); Aspartate Amino Transferase 32 U/L (17-59); Bilirubin,Total 0.5 mg/dL (0.2-1.3); Blood Urea Nitrogen 19 mg/dL (9-20); Calcium 8.7 mg/dL (8.4-10.2); Carbon Dioxide 26 mmol/L (22-30); Chloride 97 mmol/L (98-107); Estimated CRCL calculation 51 ml/min; Estimated Glomerular Filt Rate > 60; Glucose 113 mg/dL (65-110); Potassium 3.8 mmol/L (3.4-5.0); Sodium 129 mmol/L (137-145); Total Protein 6.8 g/dL (6.3-8.2)
[2025-05-22 22:10] LABS: Band Neutrophils Percent 13 % (0-6); Giant Platelets Present; Lymphocytes Absolute Manual 0.58 K/mm3 (1.1-4.5); Lymphocytes Percent Manual 5.0 % (18-44); Monocytes Absolute Manual 0.46 K/mm3 (0.1-0.90); Monocytes Percent Manual 4 % (3-9); Neutrophils Absolute Manual 10.44 K/mm3 (1.3-6.7); Neutrophils Percent Manual 77 % (46-73); Promyelocytes Percent 1 %; Total Cells Counted 100
[2025-05-22 22:11] LABS: Schistocytes None Seen; Smudge Cells PRESENT
--- NOTE | 2025-05-22 23:04 | PC.NURSE ---
This tech and tech, Airam assisted pt to restroom by walker. Pt ambulated without tech assistance and did not report dizziness or fatigue.
--- OUTSIDE RECORDS SUMMARY | 2025-05-23 00:39 | XMS_ITS | Clinical Summary ---
Author Organization [email or web address] [id number] [facility] Address [address] [place] [address] Care Team Providers Care Mental Measurements Teacher Name Role Phone Hector Graham MD Primary Care Provider [phone] Allergies Active Allergy Reactions Criticality Noted Date [...] capsule Take by oral route. Active fexofenadine (ALEXI ALLERGY) 180 mg tablet every 24 hours. [...] 12:57 PM CDT Height 179.1 cm (5' 10.5) 06/13/2019 12:57 PM C DT Body Mass [...] 1-dose 75+ series) 02/24/2012 INFLUENZA VACCINE (#1) 2025 Insurance MEDICARE PART A AND B BCBS SUPP Care Teams Mental Measurements Teacher Relationship Specialty Start Date End Date Hector Graham MD [address] [place] [address] PCP - General Internal Medicine 06/13/19
--- OUTSIDE RECORDS SUMMARY | 2025-05-23 00:39 | XMS_ITS | Clinical Summary ---
Author Organization [facility] Address [address] [place] [address] Care Team Providers Care Staff Auditor Name Role Phone Hector Graham MD Primary [...] 07/07 Cervical disc disease 06/13/2019 Atrial fibrillation ([facility]) 05/07/2017 Paroxysmal atrial fibrillation ([facility]) 05/07/2017 Immunizations Immunization Administration Dates Next Due Fluzone High Dose [...] Counseling Given: Yes Comments:1/2 pouch/day PCP to counselling psychologist Alcohol Use Standard Drinks/Week Comments Not Currently [...] 11:31 AM CDT Height 176.5 cm (5' 9.5) 06/13/2022 11 :31 AM CDT Body Mass Index 32.92 06/13/2022 11:31 AM CDT Plan of Treatment Health Maintenance Due Date Last Done Comments ASCVD LDL 1935 ASCVD Statin 1937 Annual Medicare Wellness Visit 2002 RSV Immunization or 60+ Years (1 - 1-dose 75+ series) 02/24/2012 Zoster Vaccines (2 of 2) 02/16/2020 12/22/2019 Pneumococcal Vaccine: 50+ Years (2 of 2 - PPSV23) 07/21/2020 07/21/2019, 07/09/2017 COVID-19 Vaccine (1 - 2023-2 5 season) 2024 DTaP, Tdap and Td Vaccines ( 3 - Td or Tdap) 07/21/2029 07/21/2019, 02/11/2018 Meningococcal B Vaccine Aged Out No l onger eligible based on patient's age to complete this topic Meningococcal Vaccine Aged Out No jaylan stanislav eligible based on patient's age to complete this topic RSV Immunizations Under 20 Months Aged Out No longer eligible b ased on patient's age to complete this topic Insurance MEDICARE [facility] Care Teams Staff Auditor Relationship Specialty Start Date End Date Hector Graham MD PCP - General INTERNAL MEDICINE 05/16/19
--- OUTSIDE RECORDS SUMMARY | 2025-05-23 00:40 | XMS_ITS | Encounter Summary ---
Author Organization [facility] Address [address] [place] [address] Care Team Providers Care Superintendent Concrete Mixing Plant Name Role Phone Alexander Fraire MD Primary Care Provider [phone] Santos Alanis MD, Hector Nam Primary Care Provider Willian Elise MD Primary Care Provider [phone] Encounter Details Date Type Department Care Team (Late st Contact Info) Description 12/18/2017 Orders Only [facility] Information Management [address] [place] [id number] Scanning, Provider Social History Tobacco Use Types Packs/Day Years Used Date Smoking Tobacco: Never Smokeless Tobacco: Former Alcohol Use Standard Drinks/Week Comments No 0 (1 standard drink = 0.6 oz pur e alcohol) Sex and Gender Information Value Date Recorded Sex Assigned at Not on file 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 Gender Identity Not on file Sexual Orientation Not on file documented as of this encounter Plan of Treatment Not on file documented as of this encounter Procedures Procedure Name Priority Date/Time Associated Diagnosis Comments SCAN - LABS 12/18/2017 documented in this encounter Results * SCAN - LABS (12/18/2017) us Provider Scanning Final Result documented in this encounter Visit Diagnoses Not on filedocumented in this encounter Care Teams Superintendent Concrete Mixing Plant Relationship Specialty Start Date End Date Alexander Fraire MD PCP - General 01/16/17 06/16/18 [place] [address] [place] [id number] PCP - General Geriatric Medicine 06/17/18 05/27/21 Willian Elise MD [address] [address] PCP - General Family Medicine 05/28/21 documented as of this encounter
--- OUTSIDE RECORDS SUMMARY | 2025-05-23 00:40 | XMS_ITS | Encounter Summary ---
Author Organization [facility] Address [address] [place] [address] Phone Care Team Providers Care Driller Brake Lining Name Role Phone Santos Alanis MD, Hector Nam Primary Care Provider Willian Elise MD Primary Care Provider [phone] Encounter Details Date Type Department Care Team (Late st Contact Info) Description 08/23/2018 Telephone [facility] Cardiology [facility] Advanced Medicine [address] [place] [address] [place] [address] Rachelle Ludwig, MPH Social History Tobacco Use Types Packs/Day Years Used Date Smoking Tobacco: Never Smokeless Tobacco: Former Alcohol Use Standard Drinks/Week Comments No 0 (1 standard drink = 0.6 oz pur e alcohol) Sex and Gender Information Value Date Recorded Sex Assigned at Not on file 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
--- OUTSIDE RECORDS SUMMARY | 2025-05-23 00:40 | XMS_ITS | Referral Summary ---
Author Organization [place] [address] Address [address] [place] [address] Care Team Providers Care Customer Advisor Name Role Phone Willian Elise MD Primary Care Provider [phone] Encounters Date Type Department Care Team Description 05/10/2025 Anticoagulation Visit [facility] Cardiology at [address] [place] [address] Itzel Fofana RN Atrial fibrillation ([facility]/HCC) [I48.91] (Primary Dx); Paroxysmal atrial fibrillation (HCC) 05/10/2025 Orders Only [facility] Cardiology [address] [facility] [address] [place] [address] Jaiden Pisano MD 04/14/2025 Anticoagulation Visit [facility] Cardiology [address] [place] [address] [address] [place] [address] Itzel Fofana RN Atrial fibrillation ([facility]/HCC) [I48.91] (Primary Dx); Paroxysmal atrial fibrillation (HCC) 04/14/2025 Orders Only [facility] Cardiology [address] [facility] [address] [place] [address] Jaiden Pisano MD 03/14/2025 Anticoagulation Visit [facility] Cardiology [address] [facility] [address] [place] [address] Chelsie Briseno RN Atrial fibrillation ([facility]/HCC) [I48.91] (Primary Dx); Paroxysmal atrial fibrillation (HCC) 03/10/2025 Orders Only [facility] Cardiology [address] [place] [address] Jaiden Pisano MD from Last 3 Months Allergies Active Allergy Reactions Criticality Noted Date Comments Aminosalicylic Acid Anaphylaxis,Shortnes s of breath,Swelling High 07/14/2019 Naproxen Swelling High 04/18/2011 Sodium Unknown 07/14/2019 Medications metFORMIN (GLUCOPHAGE) 1,000 mg tablet take 1 tablet by oral route 2 times every day with morning and evening meals 0 0 07/06/20 15 Active Additional Information Patient not taking.Reported on 01/03/2025 latanoprost (XALATAN) 0.005 % ophthalmic solution instill 1 drop by ophthalmic route every day into affected eye(s) in the evening 0 0 07/06/20 15 Active ascorbic acid (vitamin C) 100 mg tablet take 1 by Oral route once 0 0 07/06/20 15 Active Additional Information Patient taking differently: 1,000 mg oral Daily, Reported on 01/03/2025 montelukast (SINGULAIR) 10 mg tablet take 1 tablet by oral route every day in the evening 0 0 07/06/20 15 Active telmisartan (MICARDIS) 80 mg tablet take 1 tablet by oral route every day 0 0 03/04/20 16 Active atorvastatin (LIPITOR) 10 mg tablet take 1 tablet by oral route every day at bedtime 0 0 03/12/20 17 Active Additional Information Patient taking differently:10 mgEvery other day, Reported on 01/03/2025 primidone (MYSOLINE) 250 mg tablet Take 1 tablet (250 mg total) by mouth 4 (four) times a day Active cholecalciferol (VITAMIN D-3) 2000 unit capsule Take 2 capsules (4,000 Units total) by mouth daily Active albuterol HFA (PROVENTIL HFA,VENTOLIN HFA,PROAIR HFA) 90 mcg/actuation inhaler INHALE 1 TO 2 PUFFS BY MOUTH EVERY 4 HOURS NEEDED FOR SHORTNESS OF BREATH OR WHEEZING 07/01/20 23 Active fexofenadine (ALEXI) 60 mg tablet Take 1 tablet (60 mg total) by mouth daily Active vitamin B complex capsule Take 1 capsule by mouth daily Active triamcinolone (KENALOG) 0.1 % creamIndication s:Irritant contact dermatitis, unspecified trigger Apply topically 2 (two) times a day for 7 days 45 g 1 09/07/20 23 Active warfarin (COUMADIN) 7.5 mg tablet Take 1 tablet (7.5 mg total) by mouth daily 90 tablet 04/29/20 24 Active Additional Information Patient not taking.Reported on 01/03/2025 amiodarone (PACERONE) 200 mg tablet TAKE 1 TABLET BY MOUTH EVERY DAY 90 tablet 2 04/11/20 25 Active furosemide (LASIX) 20 mg tablet TAKE 1 TABLET BY MOUTH EVERY DAY 90 tablet 1 04/17/20 25 Active warfarin (COUMADIN) 5 mg tablet 1 TAB (5 MG) 5 DAYS A WEEK (SUN, MON, WED, FRI, SAT) & 1&1/2 TABS (7.5 MG) ON TUES, TH OR DIR 135 tablet 05/18/20 25 Active warfarin (COUMADIN) 5 mg tablet TAKE 5 MG (1 TAB) 5 DAYS A WEEK (SUN, THU, THU, FRI, SAT) & 7.5 MG ON TU AND TH OR DIRECTED 90 tablet 01/04/20 25 025 Discontinued Active Problems Problem Noted Date Diagnosed Date Atrial fibrillation (CMS/HCC) [I48.91] 7 Paroxysmal atrial fibrillation 05/07/2017 Social [...] on file 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 Gender Identity Not on file Sexual Orientation Not on file Last Filed Vital Signs Vital Sign Reading Time Taken Comments Blood Pressure 118/62 01/03/2025 11:33 AM CDT Pulse 71 01/03/2025 11:33 AM CDT Temperature - - Respiratory Rate 12 05/12/2017 11:0 4 AM CDT Oxygen Saturation 96% 01/03/2025 11: 33 AM CDT Inhaled Oxygen Concentration - - Weight 99.2 kg (218 lb 11.2 oz) 025 11:33 AM CDT Height 180.3 cm (5' 11) 01/03/2025 11: 33 AM CDT Body Mass Index 30.5 01/03/2025 11:33 AM CDT Plan of Treatment Not on file Procedures Procedure Name Priority Date/Time Associated Diagnosis Comments PROTIME-INR Routine 05/10/2025 7:10 AM CDT PROTIME-INR Routine 04/14/2025 7:08 AM CDT PROTIME-INR Routine 03/10/2025 11:01 AM CDT from Last 3 Months Results * (ABNORMAL) Protime-INR (05/10/2025 7:10 AM CDT) INR 2.6(H) [facility] Comment: Reference Range 0.9-1.1 Moderate-intensity Warfarin Therapy 2.0-3.0 Higher-intensity Warfarin Therapy 3.0-4.0 PT 26.6(H) 9.0 - 11.5 sec [facility] Comment: For additional information, please refer to http://CodeCombat.Synesis/faq/JDK116 (This link is being provided for informational/ educational purposes only.) 05/10/2025 7:10 AM CDT 05/10/2025 7:11 AM CDT Jaiden Pisano MD LAB BLOOD ORDERABLES Fin al Result [facility] [address] [place] [address] * (ABNORMAL) Protime-INR (04/14/2025 7:08 AM CDT) INR 2.1(H) [facility] Comment: Reference Range 0.9-1.1 Moderate-intensity Warfarin Therapy 2.0-3.0 Higher-intensity Warfarin Therapy 3.0-4.0 PT 21.6(H) 9.0 - 11.5 sec [facility] Comment: For additional information, please refer to http://Zulahoo/faq/EOE952 (This link is being provided for informational/ educational purposes only.) 04/14/2025 7:08 AM CDT 04/14/2025 7:09 AM CDT Jaiden Pisano MD LAB BLOOD ORDERABLES Fin al Result Performing Organization Address [facility] de Phone Number [facility] [address] [place] [address] * (ABNORMAL) Protime-INR (03/10/2025 11:01 AM CDT) INR 1.9(H) [facility] Comment: Reference Range 0.9-1.1 Moderate-intensity Warfarin Therapy 2.0-3.0 Higher-intensity Warfarin Therapy 3.0-4.0 PT 19.3(H) 9.0 - 11.5 sec [facility] Comment: For additional information, please refer to http://Zulahoo/faq/BSX013 (This link is being provided for informational/ educational purposes only.) 03/10/2025 11:0 1 AM CDT 03/10/2025 11:01 AM CDT Jaidne Pisano MD LAB BLOOD ORDERABLES Fin al Result Performing Organization Address [facility] de Phone Number [facility] [address] [place] [address] from Last 3 Months Insurance MEDICARE Member Subscriber Plan / Payer (Ef fective 2002-Present) Name:Truong Higuera Member ID:[id number] Relation to Subscriber:Self Name:Truong Higuera Subscriber ID:[id number] Payer ID:[id number] Group ID:Not on file Type:MEDICARE TRADITIONAL Address: [address] [address] [place] [address] [facility] MEDICARE SUPPLEMENT Care Teams Customer Advisor Relationship Specialty Start Date End Date Willian Elise MD [address] [address] PCP - General Family Medicine 05/28/21
--- OUTSIDE RECORDS SUMMARY | 2025-05-23 00:40 | XMS_ITS | Clinical Summary ---
Author Organization [facility] [address] Address [address] [place] [address] Care Team Providers Care Oral Health Therapist Name Role Phone Willian Elise MD Primary Care Provider [phone] Allergies Active Allergy Reactions Criticality Noted Date [...] & 1&1/2 TABS (7.5 MG) ON TUES, THURS OR DIR 135 tablet 05/18/20 25 Active warfarin (COUMADIN) 5 mg tablet TAKE 5 MG (1 TAB) 5 DAYS A WEEK (SUN, MON, WED, FRI, SAT) & 7.5 MG ON TUES AND THURS OR DIRECTED 90 tablet 01/04/20 25 025 Discontinued Active Problems Problem Noted Date Diagnosed Date Atrial fibrillation ([facility]/HCC) [I48.91] 7 Paroxysmal atrial fibrillation 05/07/2017 Encounters Date Type Department Care Team Description 05/10/2025 Anticoagulation Visit [facility] Cardiology at [address] [place] [address] Itzel Fofana RN Atrial fibrillation (CMS/HCC) [I48.91] (Primary Dx); Paroxysmal atrial fibrillation (HCC) 05/10/2025 Orders Only [facility] Cardiology [address] [place] [address] Jaiden Pisano MD 04/14/2025 Anticoagulation Visit [facility] Cardiology [address] [place] [address] [address] [place] [address] Itzel Fofana RN Atrial fibrillation ([facility]/HCC) [I48.91] (Primary Dx); Paroxysmal atrial fibrillation (HCC) 04/14/2025 Orders Only [facility] Cardiology [address] [place] [address] [address] [place] [address] Jaiden Pisano MD 03/14/2025 Anticoagulation Visit [facility] Cardiology [address] [place] [address] [address] [place] [address] Chelsie Briseno RN Atrial fibrillation ([facility]/HCC) [I48.91] (Primary Dx); Paroxysmal atrial fibrillation (HCC) 03/10/2025 Orders Only [facility] Cardiology [address] [place] [address] [address] [place] [address] Jaiden Pisano MD from Last 3 Months Medical History Medical [...] on file 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 Gender Identity Not on file Sexual Orientation [...] 01/03/2025 11:33 AM CDT Plan of Treatment Health Maintenance Due Date Last Done Comments Depression Screening 1935 Fall Risk Assessment 1935 Hepatitis B Screening 1953 Well Visit 65+ 2002 Pneumococcal vaccine 65+ (2 of 2 - PPSV23) 07/21/2020 07/21/2019, 07/09/2017 Influenza Vaccine (#1) 2025 4, 06/12/2020, 07/07/2019, Additional history exists DTaP/Tdap/Td Vaccine (3 - Td or Tdap) 07/21/2029 07/21/2019, 02/11/2018 Zoster Vaccine Completed 12/22/2019, 12/17/2019 Procedures Procedure Name Priority Date/Time Associated Diagnosis Comments PROTIME-INR Routine 05/10/2025 7:10 AM CDT PROTIME-INR Routine 04/14/2025 7:08 AM CDT PROTIME-INR Routine 03/10/2025 11:01 AM CDT from Last 3 Months Results * (ABNORMAL) Protime-INR (05/10/2025 7:10 AM CDT) INR 2.6(H) [facility] Comment: Reference Range 0.9-1.1 Moderate-intensity Warfarin Therapy 2.0-3.0 Higher-intensity Warfarin Therapy 3.0-4.0 PT 26.6(H) 9.0 - 11.5 sec [facility] Comment: For additional information, please refer to http://education.AudioTrip/faq/IUP832 (This link is being provided for informational/ educational purposes only.) 05/10/2025 7:10 AM CDT 05/10/2025 7:11 AM CDT Jaiden Pisano MD LAB BLOOD ORDERABLES Fin al Result Performing Organization Address [facility] de Phone Number [facility] [address] [place] [address] * (ABNORMAL) Protime-INR (04/14/2025 7:08 AM CDT) INR 2.1(H) [facility] Comment: Reference Range 0.9-1.1 Moderate-intensity Warfarin Therapy 2.0-3.0 Higher-intensity Warfarin Therapy 3.0-4.0 PT 21.6(H) 9.0 - 11.5 sec [facility] Comment: For additional information, please refer to http://jaja.tv.AudioTrip/faq/BRO936 (This link is being provided for informational/ educational purposes only.) 04/14/2025 7:08 AM CDT 04/14/2025 7:09 AM CDT Jaiden Pisano MD LAB BLOOD ORDERABLES Fin al Result Performing Organization Address [facility] de Phone Number [facility] [address] [place] [address] * (ABNORMAL) Protime-INR (03/10/2025 11:01 AM CDT) INR 1.9(H) [facility] Comment: Reference Range 0.9-1.1 Moderate-intensity Warfarin Therapy 2.0-3.0 Higher-intensity Warfarin Therapy 3.0-4.0 PT 19.3(H) 9.0 - 11.5 sec [facility] Comment: For additional information, please refer to http://jaja.tv.AudioTrip/faq/QLO745 (This link is being provided for informational/ educational purposes only.) 03/10/2025 11:0 1 AM CDT 03/10/2025 11:01 AM CDT Jaiden Pisano MD LAB BLOOD ORDERABLES Fin al Result [facility] [address] [place] [address] from Last 3 Months Insurance MEDICARE MEDICARE [facility] MEDICARE SUPPLEMENT Care Teams Oral Health Therapist Relationship Specialty Start Date End Date Willian Elise MD [address] [address] PCP - General Family Medicine 05/28/21
[2025-05-23 00:58] LABS: Magnesium 2.2 mg/dL (1.6-2.3)
[2025-05-23 01:04] LABS: INR 1.7; Partial Thromboplastin Time 32.7 Seconds (22.3-36.8); Prothrombin Time 19.7 Seconds (11.1-14.7)
[2025-05-23 01:08] LABS: NT Pro B Type Natriuretic Pept 550 pg/mL (19.9-100); Troponin I < 0.012 ng/mL (0.000-0.034)
--- NOTE | 2025-05-23 01:48 | ED.SYNCOPE ---
HPI - Syncope General Chief Complaint: Seizure Stated Complaint: syncope vs seizure Time Seen by Provider: 05/22/25 23:53 History of Present Illness HPI narrative: 89-year-old male with history of type 2 diabetes, hyperlipidemia, CHF, hypertension, AFib on warfarin presents to the emergency department with family at bedside for a syncopal episode. Patient states he had spaghetti with meat sauce for dinner. He then went to go sit in his chair to watch TV when he began to feel nauseous, lightheaded and felt like he was going to pass out. He had his son assist him to the bathroom where he sat down on the toilet and states he began to have tunnel vision, became pale in his vision of initially went black. He is unsure if he fully lost consciousness but states he could hear his family talking during the entire event. The family members at bedside states the episode lasted about 2-3 minutes. The patient did not have any tongue biting, bowel or bladder incontinence. His daughter at bedside states that the she checked the patient's vital signs and his oxygen was ranging between 96-98% on room air and his blood pressure was 90s over 50 systolic. They contacted EMS and by the time EMS arrived patient's blood pressure improved to 120 systolic. At the time my evaluation the patient states he feels fine. He denies associated chest pain shortness of breath, headache, abdominal pain, nausea or vomiting. He has had a couple episodes of diarrhea since the event. Fluids ongoing from EMS. Related Data Home Medications ?Medication ?Instructions ?Recorded ?Confirmed ?Last Taken ?Type latanoprost 0.005 % eye drops 1 drop ophthalmic (eye) 03/28/20 04/06/25 05/19/23 21:00 History B-complex with vitamin C 1 tablet PO 05/09/20 04/06/25 05/19/23 21:00 History amiodarone 200 mg tablet 200 mg PO DAILY 05/09/20 04/06/25 05/20/23 08:00 History ascorbic acid (vitamin C) 1,000 mg 1 g PO 05/09/20 04/06/25 05/19/23 21:00 History tablet warfarin 7.5 mg tablet 7.5 mg PO DAILY 05/09/20 04/06/25 05/20/23 17:00 History cholecalciferol (vitamin D3) 75 75 mcg PO DAILY 05/07/21 04/06/25 05/20/23 08:00 History mcg (3,000 unit) tablet loratadine 10 mg tablet (Allergy 10 mg PO DAILY 06/19/23 04/06/25 Unknown History Relief (loratadine)) furosemide 20 mg tablet 20 mg PO QAM 10/06/24 04/06/25 Unknown History warfarin 5 mg tablet 5 mg PO DAILY 04/06/25 04/06/25 Unknown History Allergies Allergy/AdvReac Type Severity Reaction Status Date / Time naproxen Allergy Severe SWELLING/SO Verified 04/06/25 08:06 B Review of Systems Review of Systems: All systems reviewed & are unremarkable except as noted in HPI and below PMFSH Past Medical History Medical History BMI 30.0-30.9,adult BMI 31.0-31.9,adult Hypertension Pneumonia Constipation Spondylosis of lumbar spine Pancreatic lesion BMI 32.0-32.9,adult Anemia Acute respiratory failure with hypoxia Pneumonia due to COVID-19 virus Edema, lower extremity Encounter to establish care Arthritis Seasonal allergies Cervical vertebral fusion Glaucoma Cataract Hearing loss Headache Hyponatremia Neck pain, acute Unspecified fall, initial encounter Routine eye exam Eye exam normal Chronic atrial fibrillation Chronic diastolic (congestive) heart failure Essential tremor Mixed hyperlipidemia Type 2 diabetes mellitus without complication, without long-term current use of insulin Family History Family History Father Cerebrovascular accident Sibling Asthma Other Diabetes mellitus Family history of arthritis Hypertension Social History Social History Social History: patient is a nonsmoker and never has smoked. He does not use alcohol or drugs. 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 His power of epic analyst is Jia Leon, daughter. He would like to be a full code Smoking status: Never smoker Tobacco type: smokeless tobacco Smokeless tobacco user: chewing tobacco Second hand tobacco smoke exposure: No Alcohol intake: never Substance use: never Substance use type: does not use Lack of Transportation: No Lack of Food: Never True Current Housing: I Have Housing Concerned About Future Housing: No Difficulty Paying Gas/Electric Bills: No Difficulty Paying for Meds: No Currently Unemployed: No Education: High School Diploma/GED Difficulty w/ Childcare or Family Care: No Living arrangements: with family Occupation/Education: retired Gender identity (if verbalized by the patient): Male Sexual Orientation (if Verbalized by the Patient): Straight or Heterosexual Spiritual care concerns: No Agree to blood products: Yes Course Vital Signs Vital signs: Vital Signs Temperature 97.5 F L 05/22/25 20:53 Pulse Rate 58 L 05/22/25 20:53 Respiratory Rate 14 05/22/25 20:53 Blood Pressure 122/53 L 05/22/25 20:53 Pulse Oximetry 100 05/22/25 20:53 Oxygen Delivery Room Air 05/22/25 20:53 Temperature 97.5 F L 05/22/25 20:53 Pulse Rate 62 05/23/25 03:05 Respiratory Rate 17 05/23/25 03:05 Blood Pressure 117/84 05/23/25 03:05 Pulse Oximetry 99 05/23/25 03:06 Oxygen Delivery Room Air 05/23/25 03:06 MDM - Syncope MDM Narrative Medical decision making narrative: 89-year-old male presents emergency department for syncopal event that occurred prior to arrival. See HPI for further history. Vitals with mild bradycardia of 58, otherwise unremarkable. Patient is afebrile and nontoxic appearing and resting comfortably in exam bed. Fluids ongoing from EMS. CBC with leukocytosis of 11.6, no anemia. Lactic acid normal 1.4. Chemistries with a sodium of 129. Per chart review, sodium normally runs around 133. Magnesium normal at 2.2. Chest x-ray shows elevation of the left hemidiaphragm with adjacent compressive atelectasis, no focal infiltrate or effusion. EKG shows sinus bradycardia with rate of 55 ppm, Q-waves in lead 3, no ST elevations or depressions. Troponin is undetectable. Patient updated on results. He is ambulatory at baseline and walking around the ED with a walker without difficulty or lightheadedness. Daggett syncope risk score is medium risk at 2 points. Shared decision making with patient and family at bedside regarding disposition. Patient feels safe with discharge home with close PCP follow-up. I feel this is fair given his presentation is very consistent with vasovagal syncope. I discussed strict ED return precautions. Patient and family at bedside are agreeable with the plan verbalized understanding. Discharged in stable condition. Lab Data 05/22/25 21:19 05/22/25 21:19 Labs: Lab Results 05/22/25 05/23/25 Range/Units 21:19 02:26 WBC 11.6 H (4.5-10.0) K/mm3 RBC 4.24 L (4.6-6.20) M/mm3 Hgb 14.0 (14.0-18.0) g/dL Hct 41.1 L (42.0-52.0) % MCV 96.9 (80-100) fl MCH 33.0 (26-34) pg MCHC 34.1 (32-36) g/dl RDW 13.4 (11.5-14.5) % Plt Count 203 (150-375) k/mm3 MPV 9.3 (7.4-10.4) fl Immature Gran % (Auto) Not Reportable Neut % (Auto) Not Reportable Lymph % (Auto) Not Reportable [place] % (Auto) Not Reportable Eos % (Auto) Not Reportable Baso % (Auto) Not Reportable Lymph # (Auto) Not Reportable [place] # (Auto) Not Reportable Eos # (Auto) Not Reportable Baso # (Auto) Not Reportable Abs Immat Gran (auto) Not Reportable Absolute Neuts (auto) Not Reportable Absolute Nucleated RBC Not Reportable Total Counted 100 Neutrophils % (Manual) 77 H (46-73) % Band Neutrophils % 13 H (0-6) % Lymphocytes % (Manual) 5.0 L (18-44) % Monocytes % (Manual) 4 (3-9) % Promyelocytes % (Man) 1 % Nucleated RBC % Not Reportable Abs Neuts (Manual) 10.44 H (1.3-6.7) K/mm3 Abs Lymphs (Manual) 0.58 L (1.1-4.5) K/mm3 Abs Monocytes (Manual) 0.46 (0.1-0.90) K/mm3 Atypical Lymphocytes Present Smudge Cells Present Platelet Estimate Adequate (Adequate) Clumped Platelets Present Giant Platelets Present Schistocytes None seen PT 19.7 H (11.1-14.7) Seconds INR 1.7 APTT 32.7 (22.3-36.8) Seconds Sodium 129 L (137-145) mmol/L Potassium 3.8 (3.4-5.0) mmol/L Chloride 97 L (98-107) mmol/L Carbon Dioxide 26 (22-30) mmol/L Anion Gap 6 (4-12) mmol/L BUN 19 (9-20) mg/dL Creatinine 1.04 (0.7-1.3) mg/dL Estim Creat Clear Calc 51 ml/min Estimated GFR > 60 (59 - ) Glucose 113 H (65-110) mg/dL Lactic Acid 1.4 (0.7-2.0) mmol/L Calcium 8.7 (8.4-10.2) mg/dL Magnesium 2.2 (1.6-2.3) mg/dL Total Bilirubin 0.5 (0.2-1.3) mg/dL AST 32 (17-59) U/L ALT 20 (6-50) U/L Alkaline Phosphatase 94 (38-126) U/L Troponin I < 0.012 (0.000-0.034) ng/mL NT-Pro-B Natriuret Pep 550 H (19.9-100) pg/mL Total Protein 6.8 (6.3-8.2) g/dL Albumin 3.9 (3.5-5.1) g/dL Urine Color Dark yellow (Yellow) Urine Appearance Clear (Clear) Urine pH 5.5 (5.0-9.0) Ur Specific [place] 1.018 (1.001-1.035) Urine Protein Negative (Negative) mg/dL Urine Glucose (UA) Negative (Negative) mg/dL Urine Ketones Trace H (Negative) mg/dL Ur Blood (Man) Negative (Negative) Urine Nitrate Negative (Negative) Urine Bilirubin Negative (Negative) Urine Urobilinogen 1.0 (<2.0) mg/dL Add Ur Microanalysis Reviewed Leukocyte Esterase Rfl 2+ H (Negative) DAYANARA/UL Urine RBC 3-5 H (0-2) /hpf Urine WBC 11-20 H (0-3) /hpf Ur Squamous Epith Cells None seen (Few) /hpf Urine Bacteria None seen /hpf Urine Casts 6-10 Discharge Plan Discharge Clinical Impression: Chronic hyponatremia Syncope Qualifiers: Syncope type: vasovagal syncope Qualified Code(s): R55 - Syncope and collapse Patient Disposition: Home Condition: Stable Instructions: Antibiotic Form, Syncope (ED) Additional Instructions: Please make sure you are drinking plenty of fluids including water, Gatorade and Pedialyte. Your sodium was found to be low today at 129, please have this repeated by her primary care provider in the next 2-3 days. Return to the emergency department if you develop chest pain, shortness of breath, lightheadedness or dizziness, loss of consciousness, or other concerning symptoms. Patient Language: Kyrgyz Prescriptions: No Action latanoprost 0.005 % drops 1 drop ophthalmic (eye) HS Rx Instructions: 1 drop into both eyes at bedtime cholecalciferol (vitamin D3) 75 mcg (3,000 unit) tablet 75 mcg PO DAILY loratadine [Allergy Relief (loratadine)] 10 mg tablet 10 mg PO DAILY fluticasone propionate [Flonase Allergy Relief] 50 mcg/actuation spray,suspension 2 spray intranasal DAILY Qty: 48 4RF Rx Instructions: administer into each nostril 1 or 2 sprays once or twice daily p.r.n. congestion fluticasone propionate 50 mcg/actuation spray,suspension See Rx Instructions .ROUTE .COMPLEX Qty: 48 1RF Dose Instruction: SPRAY TWICE INTRANASALLY INTO EACH NOSTRIL DAILY Rx Instructions: SPRAY TWICE INTRANASALLY INTO EACH NOSTRIL DAILY furosemide 20 mg tablet 20 mg PO QAM albuterol sulfate 90 mcg/actuation HFA aerosol inhaler 1 - 2 inh inhalation Q4H PRN (Reason: shortness of breath or wheezing) Qty: 8.5 11RF ascorbic acid (vitamin C) 1,000 mg Tablet 1 g PO HS amiodarone 200 mg tablet 200 mg PO DAILY warfarin 7.5 mg Tablet 7.5 mg PO DAILY B-complex with vitamin C Tablet 1 tablet PO HS warfarin 5 mg tablet 5 mg PO DAILY Rx Instructions: Daily as prescribed by Cream Gatherer acetaminophen [Mapap (acetaminophen)] 325 mg Tablet 650 mg PO Q6H PRN (Reason: Mild Pain (1-3) Or Fever) Qty: 0 0RF atorvastatin 10 mg tablet 10 mg PO EVERY OTHER DAY Qty: 90 3RF Rx Instructions: Take Thursday, Thursday, , Thursday montelukast 10 mg tablet 10 mg PO QHS Qty: 90 3RF primidone 250 mg tablet 250 mg PO TID Qty: 270 3RF telmisartan 40 mg tablet 40 mg PO DAILY Qty: 90 3RF Follow-up/Referrals: Jolynn Greene NP [Primary Care Provider] -
[2025-05-23 02:48] LABS: Add Urine Microscopic? YES; Appearance Urine Clear (Clear); Glucose Urine UA Negative (Negative); Leukocyte Esterase Ur 2+ LEU/UL (Negative); Need Manual Microscopic Reviewed; Nitrate Urine Negative (Negative); Specific Grav Ur 1.018 (1.001-1.035)
[2025-05-23 03:05] VITALS: BP 117/84; PULSE 62; RESP 17; O2SAT 99
[2025-05-23 03:06] VITALS: O2SAT 99
[2025-05-23 04:09] VITALS: BP 117/84; PULSE 62; RESP 17; O2SAT 99
== END 2025-05-23 04:11 | disposition home or self-care (01) ==
PROVIDERS: Emergency Medicine; Emergency Provider Physician Assistant; PCP Nurse Practitioner Family
DX: R55 Syncope and collapse (principal); E87.1 Hypo-osmolality and hyponatremia; M19.90 Unspecified osteoarthritis, unspecified site; I11.0 Hypertensive heart disease with heart failure; I50.9 Heart failure, unspecified; E78.5 Hyperlipidemia, unspecified; E11.9 Type 2 diabetes mellitus without complications; Z79.01 Long term (current) use of anticoagulants; R82.998 Other abnormal findings in urine
CPT/HCPCS: 36415; 71045; 80053; 81001; 83605; 83735; 83880; 84484; 85025; 85610; 85730; 87086; 93005; 99284

== ENCOUNTER → 2025-05-25 09:17 | Outpatient (CLI) | payer MEDICARE, SELFPAY ==
--- NOTE | ~2025-05-25 | XR_ITS ---
Right Knee Technique: AP and lateral views were obtained. Clinical History: Pain Findings: No fracture or dislocation is seen. Osseous alignment is anatomic. There is mild degenerati ve change of the patellofemoral compartment. No joint effusion is seen. Impression: Mild degenerative change of the patellofemoral compartment. Reviewed, dictated and finalized at [facility]. Impression: Mild degenerative change of the patellofemoral compartment.
--- OUTSIDE RECORDS SUMMARY | 2025-05-25 09:25 | XMS_ITS | Clinical Summary ---
Author Organization [facility] Address [address] [place] [address] Care Team Providers Care Strategic Business Development Name Role Phone Hector Graham MD Primary [...] 07/07 Cervical disc disease 06/13/2019 Atrial fibrillation ([facility]) 05/07/2017 Paroxysmal atrial fibrillation ([facility]) 05/07/2017 Immunizations Immunization Administration Dates Next Due [...] Counseling Given: Yes Comments:1/2 pouch/day PCP to director of group counseling program Alcohol Use Standard Drinks/Week Comments Not Currently [...] age to complete this topic Insurance MEDICARE [facility] Care Teams Strategic Business Development Relationship Specialty Start Date End Date Hector Graham MD PCP - General INTERNAL MEDICINE 05/16/19
--- OUTSIDE RECORDS SUMMARY | 2025-05-25 09:25 | XMS_ITS | Continuity of Care Document ---
Author Organization [facility] Address [address] [place] [address] Phone Care Team Providers Care Maintenance Representative Name Role Phone Unavailable Unavailable Unavailable Allergies, Adverse Reactions, Alerts Substance Reaction Status Criticality naproxen Active No Information Procedures Procedure Date Asp/inject major joint or bursa 012 Kenalog Triamcinolone acetonide inj MRI upr extr joint, w/o contrast 2011 Office/outpatient visit,[facility] 2011 Advance Directives Directive Yes [...] Date Provider Providers Copied on Encounter [facility], [address], [place], [place], [id number], [place] tel:[phone] [facility] JOINT PAIN-SHLDER SHOULDER REGION DIS NECLOC PRIM OSTEOART-SH LDERROTATOR CUFF DIS NEC -201 2 No Information [facility], [address], [place], [place], [id number], [place] tel:[phone] [facility] ROTATOR CUFF SYND NOSROTATOR CUFF DIS NECLOC PRIM OSTEOART-SH LDER Jun- 2 [facility]. [address], [address], [place], [place], [id number], [place]. tel:[phone] Office/outpat ient visit,[facility], [address], [place], [place], [id number], tel:[phone] [facility] [place] [facility] Office SHOULDER REGION DIS NECJOINT PAIN-SHLDER [...] Authoriza tion(s) Medicare [place] W[place] Part B [id number] [id number] Social History Type Description Quantity Date [...]
--- OUTSIDE RECORDS SUMMARY | 2025-05-25 09:25 | XMS_ITS | Encounter Summary ---
Author Organization [facility] Address [address] [place] [address] Care Team Providers Care Invoice Classification Clerk Name Role Phone Alexander Fraire MD Primary Care Provider [phone] Santos Alanis MD, Hector Nam Primary Care Provider Willian Elise MD Primary Care Provider [phone] Encounter Details Date Type Department Care Team (Late st Contact Info) Description 12/18/2017 Orders Only [facility] Health Information Management [address] [place] [address] Scanning, Provider Social History Tobacco Use Types Packs/Day Years Used Date Smoking Tobacco: Never Smokeless Tobacco: Former Alcohol Use Standard Drinks/Week Comments No 0 (1 standard drink = 0.6 oz pur e alcohol) Sex and Gender Information Value Date Recorded Sex Assigned at Not on file 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
--- OUTSIDE RECORDS SUMMARY | 2025-05-25 09:25 | XMS_ITS | Clinical Summary ---
Author Organization [facility] [address] [facility] Address [address] [place] [address] Care Team Providers Care Slps Name Role Phone Hector Graham MD Primary Care Provider [phone] Allergies Active Allergy Reactions Criticality Noted Date [...] A AND B BCBS SUPP Care Teams Slps Relationship Specialty Start Date End Date Hector Graham MD [address] [place] [address] PCP - General Internal Medicine 06/13/19
--- OUTSIDE RECORDS SUMMARY | 2025-05-25 09:25 | XMS_ITS | Clinical Summary ---
Author Organization [facility] [address] Address [address] [place] [address] Care Team Providers Care Maintenance Truck Driver Name Role Phone Willian Elise MD Primary Care Provider [phone] Allergies Active Allergy Reactions Criticality Noted Date [...] Encounters Date Type Department Care Team Description 05/23/[address] [facility] Medical [facility] Cardiology [address] [place] [phone] Jaiden Pisano MD 05/10/[address] [facility] Medical [facility] Cardiology at [address] [place] [address] Itzel Fofana RN Atrial fibrillation (CMS/HCC) [I48.91] (Primary Dx); Paroxysmal atrial fibrillation (HCC) 05/10/2025 Orders Only [facility] Cardiology [address] [place] [address] [address] [place] [phone] Jaiden Pisano MD 04/14/2025 Anticoagulation Visit [facility] Cardiology [address] [place] [address] [address] [place] [address] Itzel Fofana RN Atrial fibrillation (CMS/HCC) [I48.91] (Primary Dx); Paroxysmal atrial fibrillation (HCC) 04/14/2025 Orders Only [facility] Cardiology [address] [place] [address] [place] [phone] Jaiden Pisnao MD 03/14/2025 Anticoagulation Visit [facility] Cardiology [address] [place] [address] [place] [phone] Chelsie Briseno RN Atrial fibrillation ([facility]/HCC) [I48.91] (Primary Dx); Paroxysmal atrial fibrillation (HCC) 03/10/2025 Orders Only [facility] Cardiology [address] [place] [address] [place] [phone] Jaiden Pisano MD from Last 3 [...] on file 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 Gender Identity Not on file Sexual [...] Protime-INR (05/10/2025 7:10 AM CDT) INR 2.6(H) [facility] Comment: Reference Range 0.9-1.1 Moderate-intensity Warfarin Therapy 2.0-3.0 Higher-intensity Warfarin Therapy 3.0-4.0 PT 26.6(H) 9.0 - 11.5 sec [facility] Comment: For additional information, please refer to http://education.Giving Assistant/faq/TXU481 (This link is being provided for informational/ educational purposes only.) 05/10/2025 7:10 AM CDT 05/10/2025 7:11 AM CDT Jaiden Pisano MD LAB BLOOD ORDERABLES Fin al Result Performing Organization Address [facility] de Phone Number [facility] [address] [place] [address] * (ABNORMAL) Protime-INR (04/14/2025 7:08 AM CDT) INR 2.1(H) [facility] Comment: Reference Range 0.9-1.1 Moderate-intensity Warfarin Therapy 2.0-3.0 Higher-intensity Warfarin Therapy 3.0-4.0 PT 21.6(H) 9.0 - 11.5 sec [facility] Comment: For additional information, please refer to http://Huodongxing.Giving Assistant/faq/NWA460 (This link is being provided for informational/ educational purposes only.) 04/14/2025 7:08 AM CDT 04/14/2025 7:09 AM CDT Jaiden Pisano MD LAB BLOOD ORDERABLES Fin al Result Performing Organization Address [facility] Co de Phone Number [facility] [address] [place] [address] * (ABNORMAL) Protime-INR (03/10/2025 11:01 AM CDT) INR 1.9(H) [facility] Comment: Reference Range 0.9-1.1 Moderate-intensity Warfarin Therapy 2.0-3.0 Higher-intensity Warfarin Therapy 3.0-4.0 PT 19.3(H) 9.0 - 11.5 sec [facility] Comment: For additional information, please refer to http://Huodongxing.Giving [email or web address]/faq/ESP871 (This link is being provided for informational/ educational purposes only.) 03/10/2025 11:0 1 AM CDT 03/10/2025 11:01 AM CDT us Jaiden Pisano MD LAB BLOOD ORDERABLES Fin al Result [facility] [address] [place] [address] from Last 3 Months Insurance MEDICARE MEDICARE [facility] MEDICARE SUPPLEMENT Care Teams Maintenance Truck Driver Relationship Specialty Start Date End Date Willian Elise MD [address] [address] PCP - General Family Medicine 05/28/21
--- OUTSIDE RECORDS SUMMARY | 2025-05-25 09:26 | XMS_ITS | Encounter Summary ---
Author Organization [facility] Address [address] [place] [address] Phone Care Team Providers Care Director Of Enterprise Strategy Name Role Phone Santos Alanis MD, Hector Nam Primary Care Provider Willian Elise MD Primary Care Provider [phone] Encounter Details Date Type Department Care Team (Late st Contact Info) Description 08/23/2018 Telephone [facility] Cardiology [facility] Advanced Medicine [address]th [place] [address] [place] [address] Rachelle Ludwig, MPH Social History Tobacco Use Types Packs/Day Years Used Date Smoking Tobacco: Never Smokeless Tobacco: Former Alcohol Use Standard Drinks/Week Comments No 0 (1 standard drink = 0.6 oz pur e alcohol) Sex and Gender Information Value Date Recorded Sex Assigned at Not on file 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
--- OUTSIDE RECORDS SUMMARY | 2025-05-25 09:26 | XMS_ITS | Continuity of Care Document ---
Author Organization [facility] Address [address] [place] [address] [facility] [address] [place] [address] Phone Care Team Providers Care Strap Cutting Machine Operator Name Role Phone Haris Hinojosa Unavailable Unavailable Procedures Procedure Date Eye Exam, New Patient Dilated Retinal Exam W Interpretation Se Refraction Advance Directives Directive Yes / No Effective Date File Name No Information Encounters Encounter Description Practice Location Reason(s) For Visit Diagnoses Date Provider Providers Copied on Encounter [facility], [address], [place], [place], [id number], [place] tel:[phone] [facility] No Information 9-200 9 Micaela Carballo. [address] ASSURED INFORMATION SECURITY [facility] [address], [place], [address], [place]. tel:[phone] Family History Family Member Type Diagnosis Age At Onset No Information Payers Payer name Insurance type Covered libertarian ID Authoriza tion(s) [place] [id number] [place] [id number] Social History Type Description Quantity Date Captured [...]
== END ==
PROVIDERS: PCP Nurse Practitioner Family; Visit Provider Nurse Practitioner Family
DX: M17.11 Unilateral primary osteoarthritis, right knee (principal)
CPT/HCPCS: 73560

== ENCOUNTER 2025-06-08 12:32 | Inpatient (IN) | payer MEDICARE, SELFPAY ==
[2025-06-08] VITALS (14 sets, daily range): BP systolic 103–150; BP diastolic 57–85; PULSE 54–110; RESP 14–20; TEMP 36.4–36.7; O2SAT 97–99
--- NOTE | ~2025-06-08 | US_ITS ---
EXAMINATION: US carotid duplex BI DATE: 06/10/2025 13:00 INDICATION: Multiple episodes of lightheadedness and presyncope TECHNIQUE: Grayscale, color Doppler, and pulsed Doppler images of the cervical carotid arteries were obtained. The degree of vessel stenosis is placed in one of the following categories: normal, <50%, 50-69%, >=70% but less than near- occlusion, near-occlusion, or total occlusion. Note that percent stenosis relative to normal distal artery lumen diameter is indirectly measured from velocity measurements as described by Colton, et al. Radiology 2003; 229:340-346. Notes: Normal: Peak systolic velocity <125 centimeters/sec and no plaque <50%. Peak systolic velocity <125 (EDV <40; ICA/CCA PSV ratio <2.0; used these factors only a tandem lesions or low cardiac output or contralateral disease) 50-69 %: PSV 125-230 (EDV 40-100; ratio 2-4) >= 70% but less than near occlusion: PSV greater than 230 (EDV > 100; ratio> 4.0) Near Occlusion: PSV that is variable; markedly narrowed lumen Occlusion: Absent flow on color/spectral Doppler and no lumen on hernandez scale. COMPARISON: None. FINDINGS: RIGHT: The right common carotid artery (CCA) peak systolic velocity (PSV) is 88 cm/s. The right internal carotid artery (ICA) PSV is 113 cm/s. The right ICA end- diastolic velocity (EDV) is 18 cm/s. The right ICA/CCA PSV ratio is 1.3. The external carotid artery (ECA) PSV is 137 cm/s. There is antegrade flow in the right vertebral artery. LEFT: The left CCA PSV is 83 cm/s. The left ICA PSV is 101 cm/s. The left ICA EDV is 20 cm/s. The left ICA/CCA PSV ratio is 1.2. The ECA PSV is 95 cm/s. There is antegrade flow in the left vertebral artery. IMPRESSION: 1. Less than 50% stenosis in the right internal carotid artery by sonographic criteria. 2. Less than 50% stenosis in the left internal carotid artery by sonographic criteria. Reviewed, dictated and finalized at location O. IMPRESSION: 1. Less than 50% stenosis in the right internal carotid artery by sonographic anthony tang. 2. Less than 50% stenosis in the left internal carotid artery by sonographic julian roberson.
--- NOTE | ~2025-06-08 | XR_ITS ---
EXAMINATION: XR chest 2V 06/08/2025 13:41 INDICATION: Weakness. A. fib. TECHNIQUE:Frontal and lateral views of the chest were obtained. COMPARISON: 06/08/2025 FINDINGS: Heart is moderately enlarged. No pneumothorax. No pleural effusion. No free air under the diaphragm. Left-sided generator leads. Small patchy opacities in the mid and lower lungs. There is a 1.1 cm nodular density projects over the lateral aspect of the right lower hemithorax possibly a pulmonary nodule. A chest CT is recommended. IMPRESSION: 1: There is a 1.1 cm nodular density projects over the lateral aspect of the right lower hemithorax possibly a pulmonary nodule. A chest CT is recommended. 2. Small patchy opacities in the mid and lower lungs. Differential includes atelectasis/scarring or infiltrates. Follow-up is recommended. Reviewed, dictated and finalized at location Q. IMPRESSION: 1: There is a 1.1 cm nodular density projects over the lateral aspect of the r ight lower hemithorax possibly a pulmonary nodule. A chest CT is recommended. 2. Small patchy opacities in the mid and lower lungs. Differential includes ate lectasis/scarring or infiltrates. Follow-up is recommended.
--- NOTE | 2025-06-08 12:38 | ECG_ITS ---
Test Date: 2025-06-08 12:58:27 Measurements Intervals [place] Rate: 76 P: 0 OK: 0 QRS: -73 QRSD: 86 T: 46 QT: 354 QTc: 400 Interpretive Statements ATRIAL FIBRILLATION LOW QRS VOLTAGE- DIFFUSE LEADS CONSIDER ANTERIOR INFARCT, AGE INDETERMINATE BASELINE ARTIFACT- I, II, III, AVR, AVL, AVF, V1-V6 ABNORMAL ECG Compared to ECG 05/22/2025 21:21:50 SINUS BRADYCARDIA NO LONGER PRESENT Electronically Signed On 06-08-2025 13:18:21 CDT by Juancarlos Marx D.O.
--- NOTE | 2025-06-08 12:49 | PC.NURSE ---
Pt provided with urinal for urine sample
--- NOTE | 2025-06-08 12:50 | ED.GENADULT ---
HPI - General Adult General Chief complaint: Weakness Stated complaint: weakness Time Seen by Provider: 06/08/25 12:49 Source: patient and EMS Mode of arrival: EMS History of Present Illness HPI narrative: 89 years old white male lives alone, came from home by ambulance because of sudden onset of feeling nervous, associated with shaking all over was not able to walk at that time. Lasted for few minutes until the ambulance arrived. On arrival to the ED patient is asymptomatic as long as laying flat in bed. Is not sure if he stand up what can happen. Patient report having similar symptoms 1 month ago with hyponatremia Currently patient denying any fever, chills, nausea, vomiting, chest pain, shortness of breath, palpitation, headache, back pain or abdominal pain or urinary symptoms. Related Data Home Medications ?Medication ?Instructions ?Recorded ?Confirmed ?Last Taken ?Type latanoprost 0.005 % eye drops 1 drop ophthalmic (eye) 03/28/20 05/25/25 05/19/23 21:00 History B-complex with vitamin C 1 tablet PO 05/09/20 05/25/25 05/19/23 21:00 History amiodarone 200 mg tablet 200 mg PO DAILY 05/09/20 05/25/25 05/20/23 08:00 History ascorbic acid (vitamin C) 1,000 mg 1 g PO 05/09/20 05/25/25 05/19/23 21:00 History tablet warfarin 7.5 mg tablet 7.5 mg PO DAILY 05/09/20 05/25/25 05/20/23 17:00 History cholecalciferol (vitamin D3) 75 75 mcg PO DAILY 05/07/21 05/25/25 05/20/23 08:00 History mcg (3,000 unit) tablet loratadine 10 mg tablet (Allergy 10 mg PO DAILY 06/19/23 05/25/25 Unknown History Relief (loratadine)) furosemide 20 mg tablet 20 mg PO QA 10/06/24 05/25/25 Unknown History warfarin 5 mg tablet 5 mg PO DAILY 04/06/25 05/25/25 Unknown History Allergies Allergy/AdvReac Type Severity Reaction Status Date / Time naproxen Allergy Severe SWELLING/SO Verified 06/08/25 12:46 B Review of Systems Review of Systems: All systems reviewed & are unremarkable except as noted in HPI and below PMFSH Past Medical History Medical History Right knee pain Abnormal urine BMI 30.0-30.9,adult BMI 31.0-31.9,adult Hypertension Pneumonia Constipation Spondylosis of lumbar spine Pancreatic lesion BMI 32.0-32.9,adult Anemia Acute respiratory failure with hypoxia Pneumonia due to COVID-19 virus Edema, lower extremity Encounter to establish care Arthritis Seasonal allergies Cervical vertebral fusion Glaucoma Cataract Hearing loss Headache Hyponatremia Neck pain, acute Unspecified fall, initial encounter Routine eye exam Eye exam normal Chronic atrial fibrillation Chronic diastolic (congestive) heart failure Essential tremor Mixed hyperlipidemia Type 2 diabetes mellitus without complication, without long-term current use of insulin Family History Family History Father Cerebrovascular accident Sibling Asthma Other Diabetes mellitus Family history of arthritis Hypertension Social History Social History Social History: patient is a nonsmoker and never has smoked. He does not use alcohol or drugs. 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 His power of ship fastener is Jia Leon, daughter. He would like to be a full code Smoking status: Never smoker Tobacco type: smokeless tobacco Smokeless tobacco user: chewing tobacco Second hand tobacco smoke exposure: No Alcohol intake: never Substance use: never Substance use type: does not use Lack of Transportation: No Lack of Food: Never True Current Housing: I Have Housing Concerned About Future Housing: No Difficulty Paying Gas/Electric Bills: No Difficulty Paying for Meds: No Currently Unemployed: No Education: High School Diploma/GED Difficulty w/ Childcare or Family Care: No Living arrangements: with family Occupation/Education: retired Gender identity (if verbalized by the patient): Male Sexual Orientation (if Verbalized by the Patient): Straight or Heterosexual Spiritual care concerns: No Agree to blood products: Yes Exam Narrative: General appearance: Well-developed, well-nourished Skin: Normal color Head: Normocephalic, nontraumatic Eyes: Clear conjunctiva ENT: Oropharynx normal, ears normal, nose normal Neck: Supple, nontender Chest and respiratory: Airway patent, no respiratory distress, no accessory muscle use Heart: Irregular irregularity Abdomen: Soft, nontender, no organomegaly, quiet bowel sounds Vascular: Normal peripheral pulses, normal capillary refill. Musculoskeletal: Normal range of motion, nontender back Neurologic: Alert and oriented ?3, TENTER FRAME OPERATOR is normal as tested, no gross motor deficit Course Vital Signs Vital signs: Vital Signs Temperature 36.7 C 06/08/25 12:33 Pulse Rate 105 H 06/08/25 12:33 Respiratory Rate 20 06/08/25 12:33 Blood Pressure 117/74 06/08/25 12:33 Pulse Oximetry 99 06/08/25 12:33 Oxygen Delivery Room Air 06/08/25 12:33 Temperature 36.7 C 06/08/25 12:33 Pulse Rate 84 06/08/25 13:15 Respiratory Rate 16 06/08/25 13:15 Blood Pressure 135/76 06/08/25 13:01 Pulse Oximetry 99 06/08/25 13:15 Oxygen Delivery Room Air 06/08/25 12:33 Medical Decision Making MDM Narrative Medical decision making narrative: patient came to the ED with nervous like feeling and shaking all over Vital signs are stable Physical examination is unremarkable Differential diagnosis anxiety like symptoms, electrolyte imbalance, dehydration, infection Blood workup today includes CBC, CMP, troponin showed sodium of 127 compared to 129 1 month ago. Otherwise within normal limit Patient tested negative for COVID flu RSV, Chest x-ray showed pulmonary nodule, atelectasis versus infiltration. Patient does not have any coughing or fever or chills normal white count, the possibility of pneumonia is extremities less likely Diagnosis hyponatremia , pulmonary nodule Admit to hospitalist Differential Diagnosis Differential Diagnosis: as above Vital Signs Vital Signs: Vital Signs Temperature 36.7 C 06/08/25 12:33 Pulse Rate 105 H 06/08/25 12:33 Respiratory Rate 20 06/08/25 12:33 Blood Pressure 117/74 06/08/25 12:33 Pulse Oximetry 99 06/08/25 12:33 Oxygen Delivery Room Air 06/08/25 12:33 Temperature 36.7 C 06/08/25 12:33 Pulse Rate 84 06/08/25 13:15 Respiratory Rate 16 06/08/25 13:15 Blood Pressure 135/76 06/08/25 13:01 Pulse Oximetry 99 06/08/25 13:15 Oxygen Delivery Room Air 06/08/25 12:33 Lab Data 06/08/25 13:19 06/08/25 13:19 Labs: Lab Results 06/08/25 06/08/25 Range/Units 13:19 13:23 WBC 5.1 (4.5-10.0) K/mm3 RBC 4.48 L (4.6-6.20) M/mm3 Hgb 14.5 (14.0-18.0) g/dL Hct 43.1 (42.0-52.0) % MCV 96.2 (80-100) fl MCH 32.4 (26-34) pg MCHC 33.6 (32-36) g/dl RDW 13.2 (11.5-14.5) % Plt Count 255 (150-375) k/mm3 MPV 8.8 (7.4-10.4) fl Immature Gran % (Auto) 0.2 (0-0.5) % Neut % (Auto) 56.4 (45.5-73.1) % Lymph % (Auto) 26.9 (18.3-44.2) % [place] % (Auto) 9.8 H (2.6-8.5) % Eos % (Auto) 5.9 H (0-4.4) % Baso % (Auto) 0.8 (0.2-1.2) % Lymph # (Auto) 1.37 (0.9-3.2) K/mm3 [place] # (Auto) 0.5 (0.1-0.6) K/mm3 Eos # (Auto) 0.3 (0-0.3) K/mm3 Baso # (Auto) 0.0 (0.0-0.1) K/mm3 Abs Immat Gran (auto) 0.01 (0.00-0.031) K/mm3 Absolute Neuts (auto) 2.9 (1.3-6.7) K/mm3 Absolute Nucleated RBC 0.000 (0.0-0.012) K/mm3 Nucleated RBC % 0.0 (0.0-0.2) % Sodium 127 L (137-145) mmol/L Potassium 4.0 (3.4-5.0) mmol/L Chloride 92 L (98-107) mmol/L Carbon Dioxide 28 (22-30) mmol/L Anion Gap 7 (4-12) mmol/L BUN 12 D (9-20) mg/dL Creatinine 0.88 (0.7-1.3) mg/dL Estim Creat Clear Calc 54 ml/min Estimated GFR > 60 (59 - ) Glucose 106 (65-110) mg/dL Calcium 8.5 (8.4-10.2) mg/dL Total Bilirubin 0.3 (0.2-1.3) mg/dL AST 43 (17-59) U/L ALT 25 (6-50) U/L Alkaline Phosphatase 81 (38-126) U/L Total Protein 7.2 (6.3-8.2) g/dL Albumin 4.1 (3.5-5.1) g/dL Urine Color Yellow (Yellow) Urine Appearance Clear (Clear) Urine pH 7.5 (5.0-9.0) Ur Specific [place] 1.006 (1.001-1.035) Urine Protein Negative (Negative) mg/dL Urine Glucose (UA) Negative (Negative) mg/dL Urine Ketones Negative (Negative) mg/dL Ur Blood (Man) Trace (Negative) Urine Nitrate Negative (Negative) Urine Bilirubin Negative (Negative) Urine Urobilinogen 1.0 (<2.0) mg/dL Leukocyte Esterase Rfl Negative (Negative) DAYANARA/UL Urine RBC 3-5 H (0-2) /hpf Urine WBC 0-5 (0-3) /hpf Ur Squamous Epith Cells None seen (Few) /hpf Urine Bacteria None seen /hpf Urine Casts 0-2 Influenza A (RT-PCR) Negative (Negative) Influenza B (RT-PCR) Negative (Negative) RSV (RT-PCR) Negative (Negative) SARS-CoV-2 RNA (RT-PCR) Negative (Negative) Imaging Data Radiologist's impression: Impressions Chest X-Ray 06/08/25 14:04 IMPRESSION: 1: There is a 1.1 cm nodular density projects over the lateral aspect of the right lower hemithorax possibly a pulmonary nodule. A chest CT is recommended. 2. Small patchy opacities in the mid and lower lungs. Differential includes atelectasis/scarring or infiltrates. Follow-up is recommended. Critical Care Time Critical Care Time Critical Care Time: No Discharge Plan Discharge Clinical Impression: Hyponatremia, Pulmonary nodule Patient Disposition: Still a Patient Condition: Stable Patient Language: Citizen Of [place] Prescriptions: No Action latanoprost 0.005 % drops 1 drop ophthalmic (eye) HS Rx Instructions: 1 drop into both eyes at bedtime cholecalciferol (vitamin D3) 75 mcg (3,000 unit) tablet 75 mcg PO DAILY loratadine [Allergy Relief (loratadine)] 10 mg tablet 10 mg PO DAILY fluticasone propionate [Flonase Allergy Relief] 50 mcg/actuation spray,suspension 2 spray intranasal DAILY Qty: 48 4RF Rx Instructions: administer into each nostril 1 or 2 sprays once or twice daily p.r.n. congestion fluticasone propionate 50 mcg/actuation spray,suspension See Rx Instructions .ROUTE .COMPLEX Qty: 48 1RF Dose Instruction: SPRAY TWICE INTRANASALLY INTO EACH NOSTRIL DAILY Rx Instructions: SPRAY TWICE INTRANASALLY INTO EACH NOSTRIL DAILY furosemide 20 mg tablet 20 mg PO QAM albuterol sulfate 90 mcg/actuation HFA aerosol inhaler 1 - 2 inh inhalation Q4H PRN (Reason: shortness of breath or wheezing) Qty: 8.5 11RF ascorbic acid (vitamin C) 1,000 mg Tablet 1 g PO HS amiodarone 200 mg tablet 200 mg PO DAILY warfarin 7.5 mg Tablet 7.5 mg PO DAILY B-complex with vitamin C Tablet 1 tablet PO HS warfarin 5 mg tablet 5 mg PO DAILY Rx Instructions: Daily as prescribed by Cushion Maker acetaminophen [Mapap (acetaminophen)] 325 mg Tablet 650 mg PO Q6H PRN (Reason: Mild Pain (1-3) Or Fever) Qty: 0 0RF atorvastatin 10 mg tablet 10 mg PO EVERY OTHER DAY Qty: 90 3RF Rx Instructions: Take Thursday, Thursday, , Thursday montelukast 10 mg tablet 10 mg PO QHS Qty: 90 3RF primidone 250 mg tablet 250 mg PO TID Qty: 270 3RF telmisartan 40 mg tablet 40 mg PO DAILY Qty: 90 3RF Follow-up/Referrals: Jolynn Greene NP [Primary Care Provider, Family Practice]
[2025-06-08 13:30] LABS: Hematocrit 43.1 % (42.0-52.0); Hemoglobin 14.5 g/dL (14.0-18.0); Immature Granulocyte Percent A 0.2 % (0-0.5); Lymphocytes Absolute Auto 1.37 K/mm3 (0.9-3.2); Mean Corpuscular HGB Conc 33.6 g/dl (32-36); Mean Corpuscular Hemoglobin 32.4 pg (26-34); Mean Corpuscular Volume 96.2 fl (80-100); Nucleated Red Blood Cells Absolute Auto 0.000 K/mm3 (0.0-0.012); Nucleated Red Blood Cells Perc 0.0 % (0.0-0.2); Platelet Count Result 255 k/mm3 (150-375); Red Blood Count 4.48 M/mm3 (4.6-6.20); White Blood Count 5.1 K/mm3 (4.5-10.0)
[2025-06-08 13:36] LABS: Add Urine Microscopic? YES; Appearance Urine Clear (Clear); Glucose Urine UA Negative (Negative); Leukocyte Esterase Ur Negative LEU/UL (Negative); Nitrate Urine Negative (Negative); Non Pathogenic Casts 0-2; Specific Grav Ur 1.006 (1.001-1.035)
[2025-06-08 13:49] LABS: Alanine Aminotransferase 25 U/L (6-50); Albumin Level 4.1 g/dL (3.5-5.1); Alkaline Phosphatase 81 U/L (38-126); Anion Gap 7 mmol/L (4-12); Aspartate Amino Transferase 43 U/L (17-59); Bilirubin,Total 0.3 mg/dL (0.2-1.3); Blood Urea Nitrogen 12 mg/dL (9-20); Calcium 8.5 mg/dL (8.4-10.2); Carbon Dioxide 28 mmol/L (22-30); Chloride 92 mmol/L (98-107); Estimated CRCL calculation 54 ml/min; Estimated Glomerular Filt Rate > 60; Glucose 106 mg/dL (65-110); Potassium 4.0 mmol/L (3.4-5.0); Sodium 127 mmol/L (137-145); Total Protein 7.2 g/dL (6.3-8.2)
[2025-06-08 14:07] LABS: Influenza A QL RT-PCR Negative (Negative); Influenza B QL RT-PCR Negative (Negative); RSV RNA, RT-PCR Negative (Negative); SARS-CoV-2 RNA PCR Negative (Negative)
--- NOTE | 2025-06-08 15:28 | PM.IMHP ---
H&P: HPI History of Present Illness Date/Time: 06/08/25 15:28 Chief Complaint: Generalized weakness Hyponatremia Narrative: Truong Higuera is an 89 year old male with pmhx of afib on Coumadin and amiodarone, venous insufficiency, tremor and hypertension who is here for generalized weakness, found to have hyponatremia-Na 127. He woke up in the morning in his usual health and resumed his thing in the morning. Whether he was preparing his breakfast, he noticed that he was unsteady and shaky. He almost dropped his breakfast tray due to his tremor. He managed to sit down and he called his son to help him in case he fall. He was not nauseous, vomiting, chest pain, shortness of breath, abdominal pain but he has chronic constipation. No headache. He denies change with appetite or bowel and urinary habit change. He was admitted about 2 weeks ago for N/V/diarrhea. He was diagnosed with hyponatremia then. Review of Systems Review of Systems: All systems reviewed & are unremarkable except as noted in HPI and below Eyes: Eyes: Reports as per HPI Cardiovascular: Cardiovascular: Reports as per HPI Gastrointestinal: Gastrointestinal: Reports as per HPI Neurologic: Comments: reported bilateral hand tremor and he is taking treatment PMFSH Past Medical History Medical History Right knee pain Abnormal urine BMI 30.0-30.9,adult BMI 31.0-31.9,adult Hypertension Pneumonia Constipation Spondylosis of lumbar spine Pancreatic lesion BMI 32.0-32.9,adult Anemia Acute respiratory failure with hypoxia Pneumonia due to COVID-19 virus Edema, lower extremity Encounter to establish care Arthritis Seasonal allergies Cervical vertebral fusion Glaucoma Cataract Hearing loss Headache Hyponatremia Neck pain, acute Unspecified fall, initial encounter Routine eye exam Eye exam normal Chronic atrial fibrillation Chronic diastolic (congestive) heart failure Essential tremor Mixed hyperlipidemia Type 2 diabetes mellitus without complication, without long-term current use of insulin Family History Family History Father Cerebrovascular accident Sibling Asthma Other Diabetes mellitus Family history of arthritis Hypertension Social History Social History Social History: patient is a nonsmoker and never has smoked. He does not use alcohol or drugs. 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 He would like to be a full code Smoking status: Never smoker Tobacco type: smokeless tobacco Smokeless tobacco user: chewing tobacco Second hand tobacco smoke exposure: No Alcohol intake: never Substance use: never Substance use type: does not use Lack of Transportation: No Lack of Food: Never True Current Housing: I Have Housing Concerned About Future Housing: No Difficulty Paying Gas/Electric Bills: No Difficulty Paying for Meds: No Currently Unemployed: No Education: High School Diploma/GED Difficulty w/ Childcare or Family Care: No Living arrangements: with family Occupation/Education: retired Gender identity (if verbalized by the patient): Male Sexual Orientation (if Verbalized by the Patient): Straight or Heterosexual Spiritual care concerns: No Agree to blood products: Yes Meds Home Medications and Allergies Home Medications ?Medication ?Instructions ?Recorded ?Confirmed ?Type latanoprost 0.005 % eye drops 1 drop ophthalmic (eye) 03/28/20 05/25/25 History B-complex with vitamin C 1 tablet PO HS 05/09/20 05/25/25 History amiodarone 200 mg tablet 200 mg PO DAILY 05/09/20 05/25/25 History ascorbic acid (vitamin C) 1,000 mg 1 g PO HS 05/09/20 05/25/25 History tablet warfarin 7.5 mg tablet 7.5 mg PO DAILY 05/09/20 05/25/25 History cholecalciferol (vitamin D3) 75 75 mcg PO DAILY 05/07/21 05/25/25 History mcg (3,000 unit) tablet acetaminophen 325 mg tablet (Mapap 650 mg (2 x 325 mg) PO Q6H PRN 05/29/23 05/25/25 Rx (acetaminophen)) Mild Pain (1-3) Or Fever #0 tabs loratadine 10 mg tablet (Allergy 10 mg PO DAILY 06/19/23 05/25/25 History Relief (loratadine)) atorvastatin 10 mg tablet 10 mg PO EVERY OTHER DAY #90 tabs 07/12/24 05/25/25 Rx fluticasone propionate 50 See Rx Instructions .Route 10/06/24 05/25/25 Rx mcg/actuation nasal .COMPLEX #48 mL spray,suspension furosemide 20 mg tablet 20 mg PO QAM 10/06/24 05/25/25 History fluticasone propionate 50 2 spray intranasal DAILY chronic 12/12/24 05/25/25 Rx mcg/actuation nasal seasonal allergic rhinitis #48 mL spray,suspension (Flonase Allergy Relief) albuterol sulfate 90 mcg/actuation 1 - 2 inh inhalation Q4H PRN 04/06/25 05/25/25 Rx aerosol inhaler shortness of breath or wheezing #8.5 grams warfarin 5 mg tablet 5 mg PO DAILY 04/06/25 05/25/25 History montelukast 10 mg tablet 10 mg PO QHS #90 tabs 04/11/25 05/25/25 Rx primidone 250 mg tablet 250 mg PO TID #270 tabs 04/17/25 05/25/25 Rx telmisartan 40 mg tablet 40 mg PO DAILY #90 tabs 04/18/25 05/25/25 Rx Allergies Allergy/AdvReac Type Severity Reaction Status Date / Time naproxen Allergy Severe SWELLING/SO Verified 06/08/25 12:46 B Vital Signs Vital Signs - 24 hr 06/08/25 12:33 06/08/25 12:44 06/08/25 12:45 Temperature 36.7 C Pulse Rate 105 H 98 99 Respiratory Rate 20 20 17 Blood Pressure 117/74 117/74 Pulse Oximetry 99 99 98 Oxygen Delivery Room Air 06/08/25 12:46 06/08/25 13:00 06/08/25 13:01 Temperature Pulse Rate 110 H 85 90 Respiratory Rate 14 14 18 Blood Pressure 116/85 135/76 Pulse Oximetry 98 99 99 Oxygen Delivery 06/08/25 13:15 06/08/25 13:45 06/08/25 13:46 Temperature Pulse Rate 84 79 85 Respiratory Rate 16 16 15 Blood Pressure 113/68 Pulse Oximetry 99 97 98 Oxygen Delivery 06/08/25 14:04 06/08/25 14:15 06/08/25 14:16 Temperature Pulse Rate 85 60 59 L Respiratory Rate 15 17 16 Blood Pressure 103/57 L Pulse Oximetry 98 98 97 Oxygen Delivery Exam Narrative: Constitution: appears stated age, pleasant man HENT: MMM, normal extraocular movement Chest: Breathing nonlabor Cardiac:Irregular rhythm, Rate control. GI:soft, nontender, nondistended, no organomegaly MSK: all four extremities move spontaneously, no focal weakness Neurology: All cranial nerves grossly intact. No focal motor or sensation changes Lower extremities: Trace edema bilaterally, visible external veins H&P: Results Labs Labs: Short CBC 06/08/25 Range/Units 13:19 WBC 5.1 (4.5-10.0) K/mm3 Hgb 14.5 (14.0-18.0) g/dL Hct 43.1 (42.0-52.0) % Plt Count 255 (150-375) k/mm3 BMP 06/08/25 13:19 Sodium 127 L Potassium 4.0 Chloride 92 L Carbon Dioxide 28 BUN 12 D Creatinine 0.88 Glucose 106 Calcium 8.5 Liver Function 06/08/25 Range/Units 13:19 Total Bilirubin 0.3 (0.2-1.3) mg/dL AST 43 (17-59) U/L ALT 25 (6-50) U/L Alkaline Phosphatase 81 (38-126) U/L Albumin 4.1 (3.5-5.1) g/dL Urine 06/08/25 Range/Units 13:23 Urine Color Yellow (Yellow) Urine Appearance Clear (Clear) Urine pH 7.5 (5.0-9.0) Ur Specific [place] 1.006 (1.001-1.035) Urine Protein Negative (Negative) mg/dL Urine Glucose (UA) Negative (Negative) mg/dL Assessment and Plan Assessment and plan (1) Hyponatremia: Code(s): E87.1 - Hypo-osmolality and hyponatremia Status: Acute Assessment and Plan: likely 2/2 medication side effect and poor oral intake hold lasix increase oral intake follow up with serum osm, urine osm and urine sodium random bmp in the am (2) Essential tremor: Code(s): G25.0 - Essential tremor Status: Acute Assessment and Plan: chronic continue home dose primidone 250 mg TID (3) Chronic atrial fibrillation: Code(s): I48.20 - Chronic atrial fibrillation, unspecified Status: Acute Assessment and Plan: on amiodarone 200 mg daily on warfarin 5 mg daily resume home regimen (4) Glaucoma: Qualifiers: Glaucoma type: unspecified Code(s): H40.9 - Unspecified glaucoma Status: Acute Assessment and Plan: resume ophthalmic drops (5) Venous insufficiency: Code(s): I87.2 - Venous insufficiency (chronic) (peripheral) Status: Acute Assessment and Plan: No significant leg swelling will hold his home lasix will encourage using compression stockings during day time (6) Chronic anticoagulation: Code(s): Z79.01 - MCC (current) use of anticoagulants Status: Acute Assessment and Plan: Takes Coumadin for chronic afib. (7) Generalized weakness: Code(s): R53.1 - Weakness Status: Acute Assessment and Plan: likely 2/2 multifactorial: hyponatremia and /or poor oral intake an /or dehydration from lasix will hold off lasix, encourage oral intake and physical therapy Plan Hyponatremia likely 2/2 poor oral intake and lasix (medication side effect) Quality VTE Prophylaxis VTE prophylaxis: pharmacologic ordered
[2025-06-08 16:02] LABS: Urea Random Urine 188 MG/DL
[2025-06-08] MEDS: SODIUM CHLORIDE 0.9% IV 1,000 ML 60 ML IV CONT (16:16)
--- NOTE | 2025-06-08 16:22 | ADMGEN ---
This patient, Truong Higuera, was admitted to 3 [facility] Surg Room 304-01. Patient/family oriented to hospital policies and general routines including ID bracelet, bed and alarms, visiting hours, pain management, procedures, bathroom and other care routines, personal items, smoking policy, room service/diet, and visiting hours. Information on how to activate the Rapid Response Team has been discussed. Patient/Family are encouraged to report perceived risks to care and to ask questions if they do not understand what they are told or what they should do.
[2025-06-08] MEDS: LATANOPROST 0.005% OP SOLN 2.5 ML BTL 1 DROP EACH EYE (20:50)
[2025-06-08 20:51] LABS: Urea Random Urine 416 MG/DL
[2025-06-08] MEDS: ATORVASTATIN 10 MG TABLET PO (20:51)
[2025-06-08] MEDS: MONTELUKAST SODIUM 10 MG TABLET PO (20:51)
[2025-06-08] MEDS: TELMISARTAN 40 MG TABLET PO (21:21)
[2025-06-09] VITALS (11 sets, daily range): BP systolic 114–156; BP diastolic 48–68; PULSE 48–70; RESP 12–20; TEMP 35.9–36.2; O2SAT 93–100
[2025-06-09 06:32] LABS: INR 1.9; Prothrombin Time 21.5 Seconds (11.1-14.7)
[2025-06-09] MEDS: PRIMIDONE 250 MG TABLET PO ×3 (08:45→16:32)
--- NOTE | 2025-06-09 09:41 | ECG_ITS ---
Test Date: 2025-06-09 09:57:10 Measurements Intervals [place] Rate: 57 P: 0 [place]: 0 QRS: -10 QRSD: 98 T: 42 QT: 405 QTc: 397 Interpretive Statements SINUS BRADYCARDIA WITH FIRST DEGREE AV BLOCK LOW QRS VOLTAGE IN LIMB LEADS CONSIDER INFERIOR INFARCT, AGE INDETERMINATE BASELINE ARTIFACT- V2 ABNORMAL ECG Compared to ECG 06/08/2025 12:58:27 Atrial fibrillation no longer present Electronically Signed On 06-09-2025 10:12:44 CDT by Juancarlos Marx D.O.
[2025-06-09 09:58] LABS: Anion Gap 4 mmol/L (4-12); Blood Urea Nitrogen 12 mg/dL (9-20); Calcium 7.0 mg/dL (8.4-10.2); Carbon Dioxide 24 mmol/L (22-30); Chloride 101 mmol/L (98-107); Estimated CRCL calculation 63 ml/min; Estimated Glomerular Filt Rate > 60; Glucose 85 mg/dL (65-110); Potassium 3.2 mmol/L (3.4-5.0); Sodium 129 mmol/L (137-145)
--- NOTE | 2025-06-09 10:37 | P.PNIM_ITS ---
Progress Note: A&P Assessment and Plan (1) Hyponatremia: Code(s): E87.1 - Hypo-osmolality and hyponatremia Status: Acute Assessment and Plan: likely 2/2 medication side effect and poor oral intake hold lasix in the sitting hyponatremia increase oral intake Dietary consult Sodium better today, na 129 BMP daily (2) Essential tremor: Code(s): G25.0 - Essential tremor Status: Acute Assessment and Plan: chronic continue home dose primidone 250 mg TID (3) Chronic atrial fibrillation: Code(s): I48.20 - Chronic atrial fibrillation, unspecified Status: Acute Assessment and Plan: on amiodarone 200 mg daily, hold if heart rate is less than 50 on warfarin 5 mg daily resume home regimen (4) Glaucoma: Qualifiers: Glaucoma type: unspecified Code(s): H40.9 - Unspecified glaucoma Status: Acute Assessment and Plan: resume ophthalmic drops (5) Venous insufficiency: Code(s): I87.2 - Venous insufficiency (chronic) (peripheral) Status: Acute Assessment and Plan: No significant leg swelling will hold his home lasix will encourage using compression stockings during day time (6) Chronic anticoagulation: Code(s): Z79.01 - senior living (current) use of anticoagulants Status: Acute Assessment and Plan: Takes Coumadin for chronic afib. (7) Generalized weakness: Code(s): R53.1 - Weakness Status: Acute Assessment and Plan: likely 2/2 multifactorial: hyponatremia and /or poor oral intake an /or dehydration from lasix will hold off lasix, encourage oral intake and physical therapy (8) Hypokalemia: Code(s): E87.6 - Hypokalemia Status: Acute Assessment and Plan: Likely secondary to poor oral intake/medication side effect (lasix) Continue holding Lasix Replaced today BMP 3pm (9) Physical deconditioning: Code(s): R53.81 - Other malaise Status: Acute Assessment and Plan: Encourage oral intake and physical therapy Plan Hyponatremia likely 2/2 poor oral intake and lasix (medication side effect) Subjective Date/time seen: 06/09/25 10:37 Interval history: No acute event overnight however in this morning he had incident feeling about pass out, low blood pressure otherwise he denies chest pain, shortness Of breath, abdominal pain and diaphoresis. Afebrile. Upon evaluation he was hemodynamically stable. Review of Systems Review of Systems: All systems reviewed & are unremarkable except as noted in HPI and below Eyes: Eyes: Reports as per HPI Cardiovascular: Cardiovascular: Reports as per HPI Gastrointestinal: Gastrointestinal: Reports as per HPI Comments: No abdominal pain, diarrhea or constipation Neurologic: Comments: No neurological deficits, or sensory change Psychiatric: Comments: Appropriate Exam Const: General: comfortable, no acute distress, in distress and uncomfortable Eyes: General: appearance normal, both eyes and all related structures Sclera: sclerae normal Pupils: Equal, round and reactive pupils present EOM: EOMs intact bilaterally Neck: Neck: supple and no JVD Carotids: bruit Resp: Effort & Inspection: normal respiratory effort Cardio: Rate: bradycardic Heart sounds: Gallop heart sound present, Murmur heart sound present and Rub heart sound present GI: GI Palp: Yes Soft to palpation, Yes Tenderness to palpation present (GI) (non) and Yes Guarding due to palpation present (GI) (negative for) Objective Data Vital Signs Vital Signs: Vital Signs - 24 hr 06/08/25 12:33 06/08/25 12:44 06/08/25 12:45 Temperature 36.7 C Pulse Rate 105 H 98 99 Respiratory Rate 20 20 17 Blood Pressure 117/74 117/74 Pulse Oximetry 99 99 98 Oxygen Delivery Room Air 06/08/25 12:46 06/08/25 13:00 06/08/25 13:01 Temperature Pulse Rate 110 H 85 90 Respiratory Rate 14 14 18 Blood Pressure 116/85 135/76 Pulse Oximetry 98 99 99 Oxygen Delivery 06/08/25 13:15 06/08/25 13:45 06/08/25 13:46 Temperature Pulse Rate 84 79 85 Respiratory Rate 16 16 15 Blood Pressure 113/68 Pulse Oximetry 99 97 98 Oxygen Delivery 06/08/25 14:04 06/08/25 14:15 06/08/25 14:16 Temperature Pulse Rate 85 60 59 L Respiratory Rate 15 17 16 Blood Pressure 103/57 L Pulse Oximetry 98 98 97 Oxygen Delivery 06/08/25 15:35 06/08/25 21:42 06/09/25 05:40 Temperature 36.4 C L 35.9 C L Pulse Rate 56 L 54 L 48 L Respiratory Rate 16 20 16 Blood Pressure 111/58 L 150/64 H 154/62 H Pulse Oximetry 99 98 100 Oxygen Delivery 06/09/25 08:42 06/09/25 08:46 06/09/25 09:47 Temperature Pulse Rate 48 L 48 L 68 Respiratory Rate 18 18 Blood Pressure 131/63 Pulse Oximetry 99 93 Oxygen Delivery Room Air 06/09/25 09:49 06/09/25 09:53 06/09/25 10:00 Temperature Pulse Rate 70 59 L Respiratory Rate 12 Blood Pressure 121/56 L 116/68 114/68 Pulse Oximetry 94 96 Oxygen Delivery Room Air Intake/Output Intake/Output: Intake & Output 06/06/25 06/07/25 06/08/25 06/09/25 23:59 23:59 23:59 23:59 Intake Total 540 390 Output Total 925 Balance 540 -535 Meds/Results Medications: Active Medications Generic Name Dose Route Start Last Admin Trade Name Freq PRN Reason Stop Dose Admin Acetaminophen 650 mg 06/08/25 14:47 Acetaminophen 650 Mg Suppository RECTAL Q6H PRN Pain (1-3)/ FEVER IF NPO Acetaminophen 650 mg 06/08/25 18:18 Acetaminophen 325 Mg Tablet PO Q6H PRN Mild Pain (1-3) or Fever Amiodarone HCl 200 mg 06/09/25 09:00 06/09/25 08:42 Amiodarone Hcl 200 Mg Tablet PO Not Given DAILY VIVIANE Atorvastatin Calcium 10 mg 06/08/25 21:00 06/08/25 20:51 Atorvastatin 10 Mg Tablet PO 10 mg SuTuThSa REPLACED BY [facility] Administration Fluticasone Propionate 2 spray 06/09/25 09:00 06/09/25 08:45 Fluticasone Propionate 0.05% Na Spr 16 Gm Btl (*Bkc) NASAL Not Given DAILY VIVIANE Calcium Gluconate 1,000 mg in 50 mls @ 100 mls/hr 06/09/25 10:35 Calcium Gluc 1,000 Mg/Ns 50 Ml IVPB 06/09/25 11:04 ONCE ONE Latanoprost 1 drop 06/08/25 21:00 06/08/25 20:50 Latanoprost 0.005% Op Soln 2.5 Ml Btl EACH EYE 1 drop HS VIVIANE Administration Montelukast Sodium 10 mg 06/08/25 21:00 06/08/25 20:51 Montelukast Sodium 10 Mg Tablet PO 10 mg QHS VIVIANE Administration Primidone 250 mg 06/09/25 09:00 06/09/25 08:45 Primidone 250 Mg Tablet PO 250 mg TID REPLACED BY [facility] Administration Telmisartan 40 mg 06/08/25 21:00 06/08/25 21:21 Telmisartan 40 Mg Tablet PO 40 mg HS REPLACED BY [facility] Administration Warfarin Sodium 5 mg 06/09/25 16:00 Warfarin (*Pbkc) 5 Mg Tablet PO DAILY@1600 REPLACED BY [facility] Radiology Results: ITS Impressions Chest X-Ray 06/08/25 14:04 IMPRESSION: 1: There is a 1.1 cm nodular density projects over the lateral aspect of the right lower hemithorax possibly a pulmonary nodule. A chest CT is recommended. 2. Small patchy opacities in the mid and lower lungs. Differential includes atelectasis/scarring or infiltrates. Follow-up is recommended. Labs Labs: Laboratory Results - last 24 hr 06/08/25 06/08/25 06/08/25 13:19 13:23 20:36 WBC 5.1 RBC 4.48 L Hgb 14.5 Hct 43.1 MCV 96.2 MCH 32.4 MCHC 33.6 RDW 13.2 Plt Count 255 MPV 8.8 Immature Gran % (Auto) 0.2 Neut % (Auto) 56.4 Lymph % (Auto) 26.9 Crook % (Auto) 9.8 H Eos % (Auto) 5.9 H Baso % (Auto) 0.8 Lymph # (Auto) 1.37 [place] # (Auto) 0.5 Eos # (Auto) 0.3 Baso # (Auto) 0.0 Abs Immat Gran (auto) 0.01 Absolute Neuts (auto) 2.9 Absolute Nucleated RBC 0.000 Nucleated RBC % 0.0 PT INR Sodium 127 L Potassium 4.0 Chloride 92 L Carbon Dioxide 28 Anion Gap 7 BUN 12 D Creatinine 0.88 Estim Creat Clear Calc 54 Estimated GFR > 60 Glucose 106 POC Capillary Glucose Calcium 8.5 Total Bilirubin 0.3 AST 43 ALT 25 Alkaline Phosphatase 81 Total Protein 7.2 Albumin 4.1 Urine Color Yellow Urine Appearance Clear Urine pH 7.5 Ur Specific [place] 1.006 Urine Protein Negative Urine Glucose (UA) Negative Urine Ketones Negative Ur Blood (Man) Trace Urine Nitrate Negative Urine Bilirubin Negative Urine Urobilinogen 1.0 Leukocyte Esterase Rfl Negative Urine RBC 3-5 H Urine WBC 0-5 Ur Squamous Epith Cells None seen Urine Bacteria None seen Urine Casts 0-2 Ur Random Urea 188 416 Influenza A (RT-PCR) Negative Influenza B (RT-PCR) Negative RSV (RT-PCR) Negative SARS-CoV-2 RNA (RT-PCR) Negative 06/09/25 06/09/25 06/09/25 05:09 05:13 09:38 WBC RBC Hgb Hct MCV MCH MCHC RDW Plt Count MPV Immature Gran % (Auto) Neut % (Auto) Lymph % (Auto) [place] % (Auto) Eos % (Auto) Baso % (Auto) Lymph # (Auto) [place] # (Auto) Eos # (Auto) Baso # (Auto) Abs Immat Gran (auto) Absolute Neuts (auto) Absolute Nucleated RBC Nucleated RBC % PT 21.5 H INR 1.9 Sodium 129 L Potassium 3.2 L Chloride 101 Carbon Dioxide 24 Anion Gap 4 BUN 12 Creatinine 0.75 Estim Creat Clear Calc 63 Estimated GFR > 60 Glucose 85 POC Capillary Glucose 151 H Calcium 7.0 L Total Bilirubin AST ALT Alkaline Phosphatase Total Protein Albumin Urine Color Urine Appearance Urine pH Ur Specific [place] Urine Protein Urine Glucose (UA) Urine Ketones Ur Blood (Man) Urine Nitrate Urine Bilirubin Urine Urobilinogen Leukocyte Esterase Rfl Urine RBC Urine WBC Ur Squamous Epith Cells Urine Bacteria Urine Casts Ur Random Urea Influenza A (RT-PCR) Influenza B (RT-PCR) RSV (RT-PCR) SARS-CoV-2 RNA (RT-PCR) Quality VTE Prophylaxis VTE prophylaxis: pharmacologic ordered (warfarin)
[2025-06-09 10:42] LABS: Hematocrit 37.1 % (42.0-52.0); Hemoglobin 12.3 g/dL (14.0-18.0); Mean Corpuscular HGB Conc 33.2 g/dl (32-36); Mean Corpuscular Hemoglobin 32.5 pg (26-34); Mean Corpuscular Volume 98.1 fl (80-100); Platelet Count Result 239 k/mm3 (150-375); Red Blood Count 3.78 M/mm3 (4.6-6.20); White Blood Count 4.5 K/mm3 (4.5-10.0)
[2025-06-09] MEDS: CALCIUM GLUC 1,000 MG/NS 50 ML 1,000 MG/50 ML BAG 100 MG IVPB (11:28)
[2025-06-09 15:14] LABS: Anion Gap 4 mmol/L (4-12); Blood Urea Nitrogen 15 mg/dL (9-20); Calcium 8.5 mg/dL (8.4-10.2); Carbon Dioxide 28 mmol/L (22-30); Chloride 97 mmol/L (98-107); Estimated CRCL calculation 54 ml/min; Estimated Glomerular Filt Rate > 60; Glucose 117 mg/dL (65-110); Potassium 4.2 mmol/L (3.4-5.0); Sodium 129 mmol/L (137-145)
[2025-06-09] MEDS: WARFARIN (*PBKC) 5 MG TABLET PO (16:32)
[2025-06-09] MEDS: EUCERIN CREAM 120 GM JAR 1 APPLIC TOPICAL (17:11)
[2025-06-09 18:01] LABS: Alanine Aminotransferase 21 U/L (6-50); Albumin Level 3.8 g/dL (3.5-5.1); Alkaline Phosphatase 83 U/L (38-126); Anion Gap 6 mmol/L (4-12); Aspartate Amino Transferase 35 U/L (17-59); Bilirubin,Total 0.4 mg/dL (0.2-1.3); Blood Urea Nitrogen 15 mg/dL (9-20); Calcium 8.4 mg/dL (8.4-10.2); Carbon Dioxide 27 mmol/L (22-30); Chloride 96 mmol/L (98-107); Estimated CRCL calculation 57 ml/min; Estimated Glomerular Filt Rate > 60; Glucose 106 mg/dL (65-110); Potassium 4.1 mmol/L (3.4-5.0); Sodium 129 mmol/L (137-145); Total Protein 6.8 g/dL (6.3-8.2)
[2025-06-09] MEDS: LATANOPROST 0.005% OP SOLN 2.5 ML BTL 1 DROP EACH EYE (20:51)
[2025-06-09] MEDS: MONTELUKAST SODIUM 10 MG TABLET PO (20:51)
[2025-06-09] MEDS: TELMISARTAN 40 MG TABLET PO (20:54)
[2025-06-10] VITALS (8 sets, daily range): BP systolic 138–154; BP diastolic 55–61; PULSE 50–85; RESP 16–18; TEMP 35.8–36.2; O2SAT 98–99
--- NOTE | 2025-06-10 | ECHO_ITS ---
Patient Info Name: Truong Higuera Age: 89 years : 1935 Gender: Male Ht: 71 in Wt: 215 lbs BSA: 2.23 m2 HR: 57 bpm BP: 142 / 58 mmHg Technical Quality: Poor Exam Date: 06/10/2025 1:33 PM Patient Status: I Admit Date: 06/09/2025 Exam Type: CA echo doppler color flow Complete two-dimensional, color flow and Doppler transthoracic echocardiogram is performed. Staff Referring Physician: Kelly Guzman Machinist Apprentice: Mercy Aviles Attending Provider: Kelly Guzman Reason for Poor Study: poor echocardiographic windows Summary 1. Complete two-dimensional, color flow and Doppler transthoracic echocardiogram is performed. 2. Left ventricular systolic function is hyperdynamic, estimated at >70. 3. Left atrial chamber dimension is mildly enlarged. 4. Technically difficult study with limited views. Left Ventricle Left ventricular chamber dimension is normal. Left ventricular systolic function is hyperdynamic, estimated at >70. There is no increased left ventricular wall thickness. Left ventricular septal wall motion is normal. The left ventricular diastolic function is indeterminate. Right Ventricle Right ventricular chamber dimension is normal. Right ventricular systolic function is normal. Left Atria Left atrial chamber dimension is mildly enlarged. Right Atria Right atrial chamber dimension is normal. Aortic Valve The aortic valve is not well visualized. There is no aortic valve stenosis. There is no aortic valve regurgitation. Pulmonic Valve The pulmonic valve is normal. There is no pulmonic valve stenosis. There is no pulmonic regurgitation. Mitral Valve The mitral valve has normal leaflets. There is no mitral valve stenosis. There is trace mitral valve regurgitation. Tricuspid Valve The tricuspid valve leaflets are normal. There is no significant tricuspid valve stenosis. There is no tricuspid valve regurgitation. Pericardium/Pleural The pericardium appears normal. There is no pericardial effusion. Inferior Vena Cava Not well visualized inferior vena cava. Aorta The aortic root size at the sinus of Valsalva is normal. The prox ascending aorta size is not well visualized. Left Ventricular Outflow Tract Name Value Normal LVOT 2D LVOT Diameter 2.0 cm LVOT Doppler LVOT Peak Velocity 170 cm/s LVOT Peak Gradient 12 mmHg LVOT Mean Gradient 6 mmHg LVOT VTI 39 cm LVOT VTI/AV VTI Ratio 0.6 LVOT Stroke Volume 118 ml LVOT CO 6.6 l/min LVOT CI 2.9 l/min/m2 Mitral Valve Name Value Normal MV Diastolic Function MV E Peak Velocity 117 cm/s MV A Peak Velocity 104 cm/s MV E/A 1.1 MV Decel Time (PW) 252 ms MV Annular TDI MV E/e' (Septal) 10.9 MV E/e' (Lateral) 10.1 MV E/e' (Average) 10.5 Aortic Valve Name Value Normal AV Doppler AV Peak Velocity 243 cm/s AV Peak Gradient 23 mmHg AV Mean Gradient 13 mmHg AV VTI 62 cm AV Area (Cont Eq VTI) 1.9 cm2 >=3.0 AV Area (Cont Eq Rajan) 2.1 cm2 AV DI (Rajan) 0.70 AV Regurgitation 2D LVOT Area 3.0 cm2 Ventricles Name Value Normal LV Dimensions 2D/MM IVS Diastolic Thickness (2D) 0.9 cm 0.6-1.0 LVID Diastole (2D) 4.6 cm 4.2-5.8 LVIW Diastolic Thickness (2D) 0.9 cm 0.6-1.0 LVID Systole (2D) 2.2 cm 2.5-4.0 LVOT Diameter 2.0 cm LV Mass (2D Cubed) 143.35 g 88.00-224.00 LV Mass Index (2D Cubed) 64 g/m2 49-115 Relative Wall Thickness (2D) 0.41 <=0.42 LV Fractional Shortening/Ejection Fraction 2D/MM LV Fractional Shortening (2D) 52 % 25-43 LV EF (2D Teichholz) 83 % LV Diastolic Volume (4C MOD) 97 ml LV EF (4C MOD) 64 % LV Diastolic Volume (2C MOD) 97 ml LV EF (2C MOD) 69 % LV Diastolic Volume (BP MOD) 98 ml 62-150 LV Diastolic Volume Index (BP MOD) 44 ml/m2 34-74 LV Systolic Volume (BP MOD) 33 ml 21-61 LV Systolic Volume Index (BP MOD) 15 ml/m2 11-31 LV EF (BP MOD) 67 % 52-72 LV Diastolic Length (4C) 8.0 cm LV Systolic Length (4C) 6.7 cm LV Stroke Volume (4C MOD) 62 ml Atria Name Value Normal LA Dimensions LA Volume (4C A-L) 57 ml LA Volume (BP A-L) 55 ml RA Dimensions RA Systolic Major [place] Length (4C) 5.5 cm 2.1-2.7 RA Area (4C) 22.2 cm2 <=18.0 Report Signatures
[2025-06-10] MEDS: ACETAMINOPHEN 325 MG TABLET 650 MG PO (06:07)
[2025-06-10 06:35] LABS: INR 1.6; Prothrombin Time 18.7 Seconds (11.1-14.7)
[2025-06-10] MEDS: PRIMIDONE 250 MG TABLET PO ×3 (08:54→20:56)
[2025-06-10] MEDS: AMIODARONE HCL 200 MG TABLET PO (08:54)
[2025-06-10 09:54] LABS: Hematocrit 38.2 % (42.0-52.0); Hemoglobin 12.7 g/dL (14.0-18.0); Mean Corpuscular HGB Conc 33.2 g/dl (32-36); Mean Corpuscular Hemoglobin 32.6 pg (26-34); Mean Corpuscular Volume 97.9 fl (80-100); Platelet Count Result 248 k/mm3 (150-375); Red Blood Count 3.90 M/mm3 (4.6-6.20); White Blood Count 5.3 K/mm3 (4.5-10.0)
[2025-06-10 10:03] LABS: Alanine Aminotransferase 19 U/L (6-50); Albumin Level 3.5 g/dL (3.5-5.1); Alkaline Phosphatase 76 U/L (38-126); Anion Gap 5 mmol/L (4-12); Aspartate Amino Transferase 44 U/L (17-59); Bilirubin,Total 0.3 mg/dL (0.2-1.3); Blood Urea Nitrogen 13 mg/dL (9-20); Calcium 8.5 mg/dL (8.4-10.2); Carbon Dioxide 27 mmol/L (22-30); Chloride 99 mmol/L (98-107); Estimated CRCL calculation 55 ml/min; Estimated Glomerular Filt Rate > 60; Glucose 94 mg/dL (65-110); Potassium 4.2 mmol/L (3.4-5.0); Sodium 131 mmol/L (137-145); Total Protein 6.3 g/dL (6.3-8.2)
[2025-06-10] MEDS: EUCERIN CREAM 120 GM JAR 1 APPLIC TOPICAL (10:39)
--- NOTE | 2025-06-10 12:05 | P.PNIM_ITS ---
Progress Note: A&P Assessment and Plan (1) Hyponatremia: Code(s): E87.1 - Hypo-osmolality and hyponatremia Status: Acute Assessment and Plan: likely 2/2 medication side effect and poor oral intake hold lasix in the sitting hyponatremia increase oral intake Dietary consult Sodium better today, Na 131 BMP daily (2) Essential tremor: Code(s): G25.0 - Essential tremor Status: Acute Assessment and Plan: chronic continue home dose primidone 250 mg TID (3) Chronic atrial fibrillation: Code(s): I48.20 - Chronic atrial fibrillation, unspecified Status: Acute Assessment and Plan: on amiodarone 200 mg daily, hold if heart rate is less than 50 on warfarin 5 mg daily resume home regimen (4) Glaucoma: Qualifiers: Glaucoma type: unspecified Code(s): H40.9 - Unspecified glaucoma Status: Acute Assessment and Plan: resume ophthalmic drops (5) Venous insufficiency: Code(s): I87.2 - Venous insufficiency (chronic) (peripheral) Status: Acute Assessment and Plan: No significant leg swelling will hold his home lasix will encourage using compression stockings during day time (6) Chronic anticoagulation: Code(s): Z79.01 - care home (current) use of anticoagulants Status: Acute Assessment and Plan: Takes Coumadin for chronic afib. (7) Generalized weakness: Code(s): R53.1 - Weakness Status: Acute Assessment and Plan: likely 2/2 multifactorial: hyponatremia and /or poor oral intake an /or dehydration from lasix will hold off lasix, encourage oral intake and physical therapy (8) Hypokalemia: Code(s): E87.6 - Hypokalemia Status: Acute Assessment and Plan: Resolved (9) Physical deconditioning: Code(s): R53.81 - Other malaise Status: Acute Assessment and Plan: Encourage oral intake and physical therapy (10) Subtherapeutic international normalized ratio (INR): Code(s): R79.1 - Abnormal coagulation profile Status: Acute Assessment and Plan: INR 1.6 today, goal 2-3 for AFib He takes warfarin 5 mg daily will check INR in the morning, if still low, will give extra 2.5 mg x1 warfarin 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 Karen levin (11) Pre-syncope: Code(s): R55 - Syncope and collapse Status: Acute Assessment and Plan: Patient had multiple episodes of presyncope/lightheadedness Likely 2/2 Orthostatic hypotension from prolonged upward gaze which may mimic standing ro head-up tilt/Carotid sinus hypersensitivity-can be provoked by neck extension or pressure, leading to reflex bradycardia and hypotension Follow Carotid ultrasound and 2D echo limited Fall precautions Will call his Cardiology for amiodarone possible cause for bradycardia (12) Hypertension: Code(s): I10 - Essential (primary) hypertension Status: Acute Assessment and Plan: Continue telmisartan BP goal <140/80 Plan Hyponatremia likely 2/2 poor oral intake and lasix (medication side effect) Continue discontinuing lasix Na 131 today BMP daily Discharge tmrw if Na>133 Subjective Date/time seen: 06/10/25 12:05 Interval history: She slept well overnight. This morning, he was feeling dizzy was sitting on a chair. He also endorsed nauseous feeling. No chest palpitations/chest pain/abdominal pain/fevers/chills. Exam Narrative: Constitution: appears stated age, pleasant man HENT: MMM, normal extraocular movement Chest: Breathing nonlabor Cardiac:Irregular rhythm, Rate control. GI:soft, nontender, nondistended, no organomegaly MSK: all four extremities move spontaneously, no focal weakness Neurology: All cranial nerves grossly intact. No focal motor or sensation changes Lower extremities: Trace edema bilaterally, visible external veins Const: General: comfortable, no acute distress, in distress and uncomfortable Eyes: General: appearance normal, both eyes and all related structures Sclera: sclerae normal Pupils: Equal, round and reactive pupils present EOM: EOMs intact bilaterally Neck: Neck: supple and no JVD Carotids: bruit Resp: Effort & Inspection: normal respiratory effort Cardio: Rate: bradycardic Heart sounds: Gallop heart sound present, Murmur heart sound present and Rub heart sound present Neuro: Cranial nerves: Yes Equal, round and reactive pupils present Objective Data Vital Signs Vital Signs: Vital Signs - 24 hr 06/09/25 14:00 06/09/25 20:40 06/09/25 22:00 Temperature 36.2 C L 36.2 C L 36.2 C L Pulse Rate 54 L 55 L 53 L Respiratory Rate 14 20 16 Blood Pressure 137/48 L 137/63 156/62 H Pulse Oximetry 99 99 99 Oxygen Delivery 06/09/25 23:40 06/10/25 06:00 06/10/25 08:00 Temperature 36.2 C L 35.8 C L Pulse Rate 58 L 62 Respiratory Rate 20 18 Blood Pressure 138/55 L 154/61 H Pulse Oximetry 98 98 Oxygen Delivery Room Air 06/10/25 08:54 06/10/25 10:08 06/10/25 10:10 Temperature Pulse Rate 60 85 85 Respiratory Rate 18 18 Blood Pressure Pulse Oximetry Oxygen Delivery 06/10/25 10:26 Temperature Pulse Rate Respiratory Rate Blood Pressure 142/58 H Pulse Oximetry Oxygen Delivery Intake/Output Intake/Output: Intake & Output 06/07/25 06/08/25 06/09/25 06/10/25 23:59 23:59 23:59 23:59 Intake Total 540 1830 870 Output Total 925 950 Balance 540 905 -80 Meds/Results Medications: Active Medications Generic Name Dose Route Start Last Admin Trade Name Freq PRN Reason Stop Dose Admin Acetaminophen 650 mg 06/08/25 14:47 Acetaminophen 650 Mg Suppository RECTAL Q6H PRN Pain (1-3)/ FEVER IF NPO Acetaminophen 650 mg 06/08/25 18:18 06/10/25 06:07 Acetaminophen 325 Mg Tablet PO 650 mg Q6H PRN Administration Mild Pain (1-3) or Fever Albuterol 2 puff 06/10/25 09:45 Albuterol Sulfate (*Sp) Aerosol 1 Puff INHALATION Q4H PRN Shortness Of Breath Or Wheezing Amiodarone HCl 200 mg 06/09/25 09:00 06/10/25 08:54 Amiodarone Hcl 200 Mg Tablet PO 200 mg DAILY VIVIANE Administration Atorvastatin Calcium 10 mg 06/08/25 21:00 06/08/25 20:51 Atorvastatin 10 Mg Tablet PO 10 mg SuTuThSa VIVIANE Administration Fluticasone Propionate 2 spray 06/09/25 09:00 06/10/25 09:50 Fluticasone Propionate 0.05% Na Spr 16 Gm Btl (*Bkc) NASAL Not Given DAILY VIVIANE Latanoprost 1 drop 06/08/25 21:00 06/09/25 20:51 Latanoprost 0.005% Op Soln 2.5 Ml Btl EACH EYE 1 drop HS VIVIANE Administration Montelukast Sodium 10 mg 06/08/25 21:00 06/09/25 20:51 Montelukast Sodium 10 Mg Tablet PO 10 mg QHS VIVIANE Administration Multi-Ingred Cream/Lotion/Oil/Oint 1 applic 06/09/25 16:30 06/10/25 10:39 Eucerin Cream 120 Gm Jar TOPICAL 1 applic DAILY VIVIANE Administration Primidone 250 mg 06/09/25 09:00 06/10/25 08:54 Primidone 250 Mg Tablet PO 250 mg TID VIVIANE Administration Telmisartan 40 mg 06/08/25 21:00 06/09/25 20:54 Telmisartan 40 Mg Tablet PO 40 mg HS VIVIANE Administration Warfarin Sodium 5 mg 06/09/25 16:00 06/09/25 16:32 Warfarin (*Pbkc) 5 Mg Tablet PO 5 mg DAILY@1600 VIVIANE Administration Radiology Results: ITS Impressions Chest X-Ray 06/08/25 14:04 IMPRESSION: 1: There is a 1.1 cm nodular density projects over the lateral aspect of the right lower hemithorax possibly a pulmonary nodule. A chest CT is recommended. 2. Small patchy opacities in the mid and lower lungs. Differential includes atelectasis/scarring or infiltrates. Follow-up is recommended. Labs Labs: Laboratory Results - last 24 hr 06/09/25 06/09/25 06/10/25 14:52 17:30 05:24 WBC 5.3 RBC 3.90 L Hgb 12.7 L Hct 38.2 L MCV 97.9 MCH 32.6 MCHC 33.2 RDW 13.3 Plt Count 248 MPV 9.5 PT 18.7 H INR 1.6 Sodium 129 L 129 L 131 L Potassium 4.2 4.1 4.2 Chloride 97 L 96 L 99 Carbon Dioxide 28 27 27 Anion Gap 4 6 5 BUN 15 15 13 Creatinine 0.89 0.84 0.87 Estim Creat Clear Calc 54 57 55 Estimated GFR > 60 > 60 > 60 Glucose 117 H 106 94 Calcium 8.5 8.4 8.5 Total Bilirubin 0.4 0.3 AST 35 44 ALT 21 19 Alkaline Phosphatase 83 76 Total Protein 6.8 6.3 Albumin 3.8 3.5 Quality VTE Prophylaxis VTE prophylaxis: pharmacologic ordered (warfarin)
--- NOTE | 2025-06-10 14:30 | PM.IMHP ---
H&P: HPI History of Present Illness Date/Time: 06/10/25 14:30 Chief Complaint: Infection of nails Narrative: The patient states that he is currently admitted for falls. He is undergoing through evaluation with imaging currently. I was consulted for infection of nails. He is established as an oupatient for routine nail debridement. No sores to his feet. No drainage, no calf pain when he walks. He does use compression sleeves daily for chronic lymphedema. Review of Systems Review of Systems: All systems reviewed & are unremarkable except as noted in HPI and below (H&P.) [facility] Past Medical History Medical History Right knee pain Abnormal urine BMI 30.0-30.9,adult BMI 31.0-31.9,adult Hypertension Pneumonia Constipation Spondylosis of lumbar spine Pancreatic lesion BMI 32.0-32.9,adult Anemia Acute respiratory failure with hypoxia Pneumonia due to COVID-19 virus Edema, lower extremity Encounter to establish care Arthritis Seasonal allergies Cervical vertebral fusion Glaucoma Cataract Hearing loss Headache Hyponatremia Neck pain, acute Unspecified fall, initial encounter Routine eye exam Eye exam normal Chronic atrial fibrillation Chronic diastolic (congestive) heart failure Essential tremor Mixed hyperlipidemia Type 2 diabetes mellitus without complication, without long-term current use of insulin Family History Family History Father Cerebrovascular accident Sibling Asthma Other Diabetes mellitus Family history of arthritis Hypertension Social History Social History Social History: patient is a nonsmoker and never has smoked. He does not use alcohol or drugs. 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 His power of erisa attorney is Jia Leon, daughter. He would like to be a full code Smoking status: Never smoker Tobacco type: smokeless tobacco Smokeless tobacco user: chewing tobacco Second hand tobacco smoke exposure: No Alcohol intake: never Substance use: never Substance use type: does not use Lack of Transportation: No Lack of Food: Never True Current Housing: I Have Housing Concerned About Future Housing: No Difficulty Paying Gas/Electric Bills: No Difficulty Paying for Meds: No Currently Unemployed: No Education: High School Diploma/GED Difficulty w/ Childcare or Family Care: No Living arrangements: with family Occupation/Education: retired Gender identity (if verbalized by the patient): Male Sexual Orientation (if Verbalized by the Patient): Straight or Heterosexual Spiritual care concerns: No Agree to blood products: Yes Meds Home Medications and Allergies Home Medications ?Medication ?Instructions ?Recorded ?Confirmed ?Type latanoprost 0.005 % eye drops 1 drop ophthalmic (eye) HS 03/28/20 06/08/25 History B-complex with vitamin C 1 tablet PO HS 05/09/20 06/08/25 History amiodarone 200 mg tablet 200 mg PO DAILY 05/09/20 06/08/25 History ascorbic acid (vitamin C) 1,000 mg 1 g PO HS 05/09/20 06/08/25 History tablet cholecalciferol (vitamin D3) 75 75 mcg PO DAILY 05/07/21 06/08/25 History mcg (3,000 unit) tablet acetaminophen 325 mg tablet (Mapap 650 mg (2 x 325 mg) PO Q6H PRN 05/29/23 06/08/25 Rx (acetaminophen)) Mild Pain (1-3) Or Fever #0 tabs atorvastatin 10 mg tablet 10 mg PO EVERY OTHER DAY #90 tabs 07/12/24 06/08/25 Rx furosemide 20 mg tablet 20 mg PO QAM 10/06/24 06/08/25 History fluticasone propionate 50 2 spray intranasal DAILY chronic 12/12/24 06/08/25 Rx mcg/actuation nasal seasonal allergic rhinitis #48 mL spray,suspension (Flonase Allergy Relief) albuterol sulfate 90 mcg/actuation 1 - 2 inh inhalation Q4H PRN 04/06/25 06/08/25 Rx aerosol inhaler shortness of breath or wheezing #8.5 grams warfarin 5 mg tablet 5 mg PO DAILY 04/06/25 06/08/25 History montelukast 10 mg tablet 10 mg PO QHS #90 tabs 04/11/25 06/08/25 Rx primidone 250 mg tablet 250 mg PO TID #270 tabs 04/17/25 06/08/25 Rx fexofenadine 180 mg tablet 180 mg PO DAILY 06/08/25 06/08/25 History (Kat Allergy) telmisartan 40 mg tablet 40 mg PO HS 06/08/25 06/08/25 History Allergies Allergy/AdvReac Type Severity Reaction Status Date / Time naproxen Allergy Severe SWELLING/SO Verified 06/08/25 12:46 B Vital Signs Vital Signs - 24 hr 06/09/25 20:40 06/09/25 22:00 06/09/25 23:40 Temperature 36.2 C L 36.2 C L 36.2 C L Pulse Rate 55 L 53 L 58 L Respiratory Rate 20 16 20 Blood Pressure 137/63 156/62 H 138/55 L Pulse Oximetry 99 99 98 Oxygen Delivery 06/10/25 06:00 06/10/25 08:00 06/10/25 08:54 Temperature 35.8 C L Pulse Rate 62 60 Respiratory Rate 18 Blood Pressure 154/61 H Pulse Oximetry 98 Oxygen Delivery Room Air 06/10/25 10:08 06/10/25 10:10 06/10/25 10:26 Temperature Pulse Rate 85 85 Respiratory Rate 18 18 Blood Pressure 142/58 H Pulse Oximetry Oxygen Delivery Exam Extrem: Ankle/foot/toe images:  1. Nails x 5 are thick dystrophic with subungual debris and yellow discoloration. Skin is thick and atrophic. No tissue loss present. 2. Difficulty palpating pedal pulses. + 3 pitting edema. H&P: Results Labs Labs: Short CBC 06/10/25 Range/Units 05:24 WBC 5.3 (4.5-10.0) K/mm3 Hgb 12.7 L (14.0-18.0) g/dL Hct 38.2 L (42.0-52.0) % Plt Count 248 (150-375) k/mm3 BMP 06/09/25 06/09/25 06/10/25 14:52 17:30 05:24 Sodium 129 L 129 L 131 L Potassium 4.2 4.1 4.2 Chloride 97 L 96 L 99 Carbon Dioxide 28 27 27 BUN 15 15 13 Creatinine 0.89 0.84 0.87 Glucose 117 H 106 94 Calcium 8.5 8.4 8.5 Liver Function 06/09/25 06/10/25 Range/Units 17:30 05:24 Total Bilirubin 0.4 0.3 (0.2-1.3) mg/dL AST 35 44 (17-59) U/L ALT 21 19 (6-50) U/L Alkaline Phosphatase 83 76 (38-126) U/L Albumin 3.8 3.5 (3.5-5.1) g/dL Assessment and Plan Assessment and plan (1) Onychomycosis: Code(s): B35.1 - Tinea unguium Status: Acute Plan Onychomycosis- No acute pedal pathology. He has a chronic case of toe nail fungus. He is being managed as an outpatient. No further care required by podiatry while in house. He will follow up as an outpatient once he is discharged.
[2025-06-10] MEDS: WARFARIN (*PBKC) 5 MG TABLET PO (16:04)
[2025-06-10 16:08] LABS: Osmolality, Urine 220 mOsmol/kg (.)
[2025-06-10 18:15] LABS: Hematocrit 36.6 % (42.0-52.0); Hemoglobin 12.2 g/dL (14.0-18.0); Mean Corpuscular HGB Conc 33.3 g/dl (32-36); Mean Corpuscular Hemoglobin 32.9 pg (26-34); Mean Corpuscular Volume 98.7 fl (80-100); Platelet Count Result 236 k/mm3 (150-375); Red Blood Count 3.71 M/mm3 (4.6-6.20); White Blood Count 6.0 K/mm3 (4.5-10.0)
[2025-06-10 18:38] LABS: Alanine Aminotransferase 22 U/L (6-50); Albumin Level 3.4 g/dL (3.5-5.1); Alkaline Phosphatase 65 U/L (38-126); Anion Gap 4 mmol/L (4-12); Aspartate Amino Transferase 36 U/L (17-59); Bilirubin,Total 0.3 mg/dL (0.2-1.3); Blood Urea Nitrogen 16 mg/dL (9-20); Calcium 8.0 mg/dL (8.4-10.2); Carbon Dioxide 26 mmol/L (22-30); Chloride 99 mmol/L (98-107); Estimated CRCL calculation 56 ml/min; Estimated Glomerular Filt Rate > 60; Glucose 148 mg/dL (65-110); Potassium 4.1 mmol/L (3.4-5.0); Sodium 129 mmol/L (137-145); Total Protein 6.2 g/dL (6.3-8.2)
[2025-06-10] MEDS: MONTELUKAST SODIUM 10 MG TABLET PO (20:56)
[2025-06-10] MEDS: TELMISARTAN 40 MG TABLET PO (20:56)
[2025-06-10] MEDS: ATORVASTATIN 10 MG TABLET PO (20:57)
[2025-06-10] MEDS: LATANOPROST 0.005% OP SOLN 2.5 ML BTL 1 DROP EACH EYE (20:58)
[2025-06-11] VITALS (7 sets, daily range): BP systolic 131–180; BP diastolic 55–65; PULSE 51–66; RESP 16–18; TEMP 36.1–37.1; O2SAT 94–99
[2025-06-11 06:09] LABS: INR 1.6; Prothrombin Time 18.5 Seconds (11.1-14.7)
[2025-06-11 09:08] LABS: Hematocrit 36.2 % (42.0-52.0); Hemoglobin 11.8 g/dL (14.0-18.0); Mean Corpuscular HGB Conc 32.6 g/dl (32-36); Mean Corpuscular Hemoglobin 32.5 pg (26-34); Mean Corpuscular Volume 99.7 fl (80-100); Platelet Count Result 232 k/mm3 (150-375); Red Blood Count 3.63 M/mm3 (4.6-6.20); White Blood Count 5.8 K/mm3 (4.5-10.0)
[2025-06-11] MEDS: PRIMIDONE 250 MG TABLET PO ×3 (09:11→16:35)
[2025-06-11] MEDS: AMIODARONE HCL 200 MG TABLET PO (09:15)
[2025-06-11 09:16] LABS: Anion Gap 3 mmol/L (4-12); Blood Urea Nitrogen 16 mg/dL (9-20); Calcium 8.1 mg/dL (8.4-10.2); Carbon Dioxide 25 mmol/L (22-30); Chloride 101 mmol/L (98-107); Estimated CRCL calculation 57 ml/min; Estimated Glomerular Filt Rate > 60; Glucose 98 mg/dL (65-110); Potassium 4.3 mmol/L (3.4-5.0); Sodium 129 mmol/L (137-145)
[2025-06-11] MEDS: EUCERIN CREAM 120 GM JAR 1 APPLIC TOPICAL (09:16)
[2025-06-11] MEDS: FLUTICASONE PROPIONATE 0.05% NA SPR 16 GM BTL (*BKC) 2 SPRAY NASAL (09:16)
--- NOTE | 2025-06-11 12:01 | P.PNIM_ITS ---
Progress Note: A&P Assessment and Plan (1) Hyponatremia: Code(s): E87.1 - Hypo-osmolality and hyponatremia Status: Acute Assessment and Plan: likely 2/2 medication side effect and poor oral intake hold lasix in the sitting hyponatremia increase oral intake Dietary consult Sodium 129 BMP daily (2) Essential tremor: Code(s): G25.0 - Essential tremor Status: Acute Assessment and Plan: chronic and stable continue home dose primidone 250 mg TID (3) Chronic atrial fibrillation: Code(s): I48.20 - Chronic atrial fibrillation, unspecified Status: Acute Assessment and Plan: on amiodarone 200 mg daily, hold if heart rate is less than 50 on warfarin 5 mg daily resume home regimen Will add extra 2.5 mg warfarin today (4) Glaucoma: Qualifiers: Glaucoma type: unspecified Code(s): H40.9 - Unspecified glaucoma Status: Acute Assessment and Plan: resume ophthalmic drops (5) Venous insufficiency: Code(s): I87.2 - Venous insufficiency (chronic) (peripheral) Status: Acute Assessment and Plan: No significant leg swelling Continue hold his home lasix Continue using compression stockings during day time (6) Chronic anticoagulation: Code(s): 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 (7) Generalized weakness: Code(s): R53.1 - Weakness Status: Acute Assessment and Plan: likely 2/2 multifactorial: hyponatremia and /or poor oral intake an /or dehydration from lasix Continue holding off lasix, encourage oral intake and physical therapy (8) Hypokalemia: Code(s): E87.6 - Hypokalemia Status: Acute Assessment and Plan: Resolved (9) Physical deconditioning: Code(s): R53.81 - Other malaise Status: Acute Assessment and Plan: Encourage oral intake and physical therapy (10) Subtherapeutic international normalized ratio (INR): Code(s): R79.1 - Abnormal coagulation profile Status: Acute Assessment and Plan: INR 1.6 today, goal 2-3 for AFib He takes warfarin 5 mg daily will add extra 2.5 mg warfarin today Fall percussion nozzle and sleeve worker is helping for Karen levin (11) Pre-syncope: Code(s): R55 - Syncope and collapse Status: Acute Assessment and Plan: Patient had multiple episodes of presyncope/lightheadedness Likely 2/2 Orthostatic hypotension from prolonged upward gaze which may mimic standing ro head-up tilt/Carotid sinus hypersensitivity-can be provoked by neck extension or pressure, leading to reflex bradycardia and hypotension 2D echo shows EF 70 %-and was normal for his age group Carotid ultrasound did review his stenosis that explains his frequent lightheadedness episode Fall precautions Will call his Cardiology for amiodarone possible cause for bradycardia (12) Hypertension: Code(s): I10 - Essential (primary) hypertension Status: Acute Assessment and Plan: Continue telmisartan BP goal <140/80 Plan Hyponatremia likely 2/2 poor oral intake and lasix (medication side effect) Continue discontinuing lasix Na 129 today BMP daily Discharge if Na>133 Subjective Date/time seen: 06/11/25 12:01 Interval history: Patient slept well last night. He denies lightheadedness, chest pain or palpitation. No fever. Exam Narrative: Constitution: appears stated age, pleasant man HENT: MMM, normal extraocular movement Chest: Breathing nonlabor Cardiac:Irregular rhythm, Rate control. GI:soft, nontender, nondistended, no organomegaly MSK: all four extremities move spontaneously, no focal weakness Neurology: All cranial nerves grossly intact. No focal motor or sensation changes Lower extremities: Trace edema bilaterally, visible external veins Objective Data Vital Signs Vital Signs: Vital Signs - 24 hr 06/10/25 14:00 06/10/25 20:00 06/10/25 21:59 Temperature 36.2 C L Pulse Rate 63 Respiratory Rate 16 Blood Pressure 147/59 H Pulse Oximetry 99 98 Oxygen Delivery Room Air Room Air Fraction of Inspired Oxygen 21 06/10/25 22:00 06/11/25 06:00 06/11/25 09:15 Temperature 36.2 C L 36.3 C L Pulse Rate 50 L 55 L 66 Respiratory Rate 18 17 Blood Pressure 138/55 L 137/61 Pulse Oximetry 98 99 Oxygen Delivery Fraction of Inspired Oxygen Intake/Output Intake/Output: Intake & Output 06/08/25 06/09/25 06/10/25 06/11/25 23:59 23:59 23:59 23:59 Intake Total 540 1830 2310 350 Output Total 925 950 950 Balance 875 191 3991 -600 Meds/Results Medications: Active Medications Generic Name Dose Route Start Last Admin Trade Name Freq PRN Reason Stop Dose Admin Acetaminophen 650 mg 06/08/25 14:47 Acetaminophen 650 Mg Suppository RECTAL Q6H PRN Pain (1-3)/ FEVER IF NPO Acetaminophen 650 mg 06/08/25 18:18 06/10/25 06:07 Acetaminophen 325 Mg Tablet PO 650 mg Q6H PRN Administration Mild Pain (1-3) or Fever Albuterol 2 puff 06/10/25 09:45 Albuterol Sulfate (*Sp) Aerosol 1 Puff INHALATION Q4H PRN Shortness Of Breath Or Wheezing Amiodarone HCl 200 mg 06/09/25 09:00 06/11/25 09:15 Amiodarone Hcl 200 Mg Tablet PO 200 mg DAILY VIVIANE Administration Atorvastatin Calcium 10 mg 06/08/25 21:00 06/10/25 20:57 Atorvastatin 10 Mg Tablet PO 10 mg SuTuThSa [facility] Administration Fluticasone Propionate 2 spray 06/09/25 09:00 06/11/25 09:16 Fluticasone Propionate 0.05% Na Spr 16 Gm Btl (*Bkc) NASAL 2 spray DAILY VIVIANE Administration Latanoprost 1 drop 06/08/25 21:00 06/10/25 20:58 Latanoprost 0.005% Op Soln 2.5 Ml Btl EACH EYE 1 drop HS [facility] Administration Montelukast Sodium 10 mg 06/08/25 21:00 06/10/25 20:56 Montelukast Sodium 10 Mg Tablet PO 10 mg QHS VIVIANE Administration Multi-Ingred Cream/Lotion/Oil/Oint 1 applic 06/09/25 16:30 06/11/25 09:16 Eucerin Cream 120 Gm Jar TOPICAL 1 applic DAILY VIVIANE Administration Primidone 250 mg 06/09/25 09:00 06/11/25 09:11 Primidone 250 Mg Tablet PO 250 mg TID VIVIANE Administration Telmisartan 40 mg 06/10/25 21:00 06/10/25 20:56 Telmisartan 40 Mg Tablet PO 40 mg HS VIVIANE Administration Warfarin Sodium 5 mg 06/09/25 16:00 06/10/25 16:04 Warfarin (*Pbkc) 5 Mg Tablet PO 5 mg DAILY@1600 VIVIANE Administration Radiology Results: ITS Impressions Chest X-Ray 06/08/25 14:04 IMPRESSION: 1: There is a 1.1 cm nodular density projects over the lateral aspect of the right lower hemithorax possibly a pulmonary nodule. A chest CT is recommended. 2. Small patchy opacities in the mid and lower lungs. Differential includes atelectasis/scarring or infiltrates. Follow-up is recommended. Carotid Doppler Study 06/10/25 13:02 IMPRESSION: 1. Less than 50% stenosis in the right internal carotid artery by sonographic criteria. 2. Less than 50% stenosis in the left internal carotid artery by sonographic criteria. Labs Labs: Laboratory Results - last 24 hr 06/08/25 06/10/25 06/11/25 13:23 18:02 04:59 WBC 6.0 5.8 RBC 3.71 L 3.63 L Hgb 12.2 L 11.8 L Hct 36.6 L 36.2 L MCV 98.7 99.7 MCH 32.9 32.5 MCHC 33.3 32.6 RDW 13.4 13.3 Plt Count 236 232 MPV 9.0 9.4 PT INR Sodium 129 L 129 L Potassium 4.1 4.3 Chloride 99 101 Carbon Dioxide 26 25 Anion Gap 4 3 L BUN 16 16 Creatinine 0.85 0.83 Estim Creat Clear Calc 56 57 Estimated GFR > 60 > 60 Glucose 148 H 98 Calcium 8.0 L 8.1 L Total Bilirubin 0.3 AST 36 ALT 22 Alkaline Phosphatase 65 Total Protein 6.2 L Albumin 3.4 L Urine Osmolality 220 06/11/25 05:07 WBC RBC Hgb Hct MCV MCH MCHC RDW Plt Count MPV PT 18.5 H INR 1.6 Sodium Potassium Chloride Carbon Dioxide Anion Gap BUN Creatinine Estim Creat Clear Calc Estimated GFR Glucose Calcium Total Bilirubin AST ALT Alkaline Phosphatase Total Protein Albumin Urine Osmolality
[2025-06-11] MEDS: WARFARIN (*PBKC) 2.5 MG TABLET PO (16:35)
[2025-06-11] MEDS: WARFARIN (*PBKC) 5 MG TABLET PO (16:35)
[2025-06-11] MEDS: MONTELUKAST SODIUM 10 MG TABLET PO (22:22)
[2025-06-11] MEDS: ATORVASTATIN 10 MG TABLET PO (22:23)
[2025-06-11] MEDS: TELMISARTAN 40 MG TABLET PO (22:23)
[2025-06-11] MEDS: LATANOPROST 0.005% OP SOLN 2.5 ML BTL 1 DROP EACH EYE (22:24)
--- NOTE | 2025-06-11 23:01 | PC.NURSE ---
at 2144 this patient was yelling and upset when the Nurse (Ramya) orienting with Armando, went in to give his night time meds, including his BP meds. The patient got very upset, stating that nobody had taken his vitals yet. The PCT Abner SAEED stated he took the vitals at 1900. No vitals had been charted at that time for this patient. I did assure him that we will take them now, and they did come back at 180 SBP. we rechecked at 2114 and SBP was 172. I notified CHRISTOPHE that the patient stated he does not want him in his room if he going to lie about doing vitals. So I reassigned this room to another PCT. I will make the safety and skill based pay manager and the directer aware of this situation. I spoke to daughter on the phone and assured her this would not happen again.
[2025-06-12 00:15] VITALS: BP 147/65
[2025-06-12 05:43] VITALS: BP 163/68; PULSE 49; RESP 16; TEMP 36.2; O2SAT 98
[2025-06-12 05:52] LABS: Hematocrit 34.4 % (42.0-52.0); Hemoglobin 11.3 g/dL (14.0-18.0); Mean Corpuscular HGB Conc 32.8 g/dl (32-36); Mean Corpuscular Hemoglobin 32.6 pg (26-34); Mean Corpuscular Volume 99.1 fl (80-100); Platelet Count Result 209 k/mm3 (150-375); Red Blood Count 3.47 M/mm3 (4.6-6.20); White Blood Count 5.4 K/mm3 (4.5-10.0)
[2025-06-12 06:04] LABS: Anion Gap 2 mmol/L (4-12); Blood Urea Nitrogen 17 mg/dL (9-20); Calcium 8.2 mg/dL (8.4-10.2); Carbon Dioxide 27 mmol/L (22-30); Chloride 100 mmol/L (98-107); Estimated CRCL calculation 56 ml/min; Estimated Glomerular Filt Rate > 60; Glucose 101 mg/dL (65-110); Potassium 4.0 mmol/L (3.4-5.0); Sodium 129 mmol/L (137-145)
[2025-06-12 06:05] LABS: INR 1.6; Prothrombin Time 18.7 Seconds (11.1-14.7)
[2025-06-12 08:06] LABS: Osmolality, Serum 257 mOsmol/kg (280-301)
[2025-06-12 08:47] VITALS: PULSE 56; RESP 16; O2SAT 98
[2025-06-12] MEDS: PRIMIDONE 250 MG TABLET PO ×3 (08:47→16:37)
[2025-06-12] MEDS: EUCERIN CREAM 120 GM JAR 1 APPLIC TOPICAL (08:47)
[2025-06-12 12:03] VITALS: PULSE 56
[2025-06-12] MEDS: AMIODARONE HCL 200 MG TABLET PO (12:03)
--- NOTE | 2025-06-12 12:04 | PC.NURSE ---
Medications scanned and administered to patient at 0847 but did not save on DEC.
[2025-06-12 14:00] VITALS: BP 146/59; PULSE 62; RESP 16; TEMP 35.9; O2SAT 100
--- NOTE | 2025-06-12 16:27 | PM.DS ---
DS: Admitting Diagnosis Discharge Date 06/12/2025 Admitting Diagnosis Hyponatremia Vasovagal syncope Subtherapeutic INR Generalized weakness Hypokalemia-resolved DS: Discharge Diagnosis Discharge Diagnosis (1) Hypo-osmolality and hyponatremia: Code(s): E87.1 - Hypo-osmolality and hyponatremia Status: Acute (2) Pre-syncope: Code(s): R55 - Syncope and collapse Status: Acute (3) Subtherapeutic international normalized ratio (INR): Code(s): R79.1 - Abnormal coagulation profile Status: Acute (4) Physical deconditioning: Code(s): R53.81 - Other malaise Status: Acute (5) Hypokalemia: Code(s): E87.6 - Hypokalemia Status: Acute (6) Generalized weakness: Code(s): R53.1 - Weakness Status: Acute Plan Please follow with your PCP/Cardiology in 1 week BMP/INR in 3 days DS: Summary Hospital Course Hospital Course: Truong Higuera is a 89 year old man with chronic A.fib on warfarin, hypertension, dyslipidemia, venous insufficiency and tremor who presents with generalized weakness and jittering. In BMP, sodium was 126. The patient was taking Lasix as outpatient for venous insufficiency which might be the etiology of hyponatremia. Lasix was discontinued. while he was inpatient patient with asymptomatic bradycardia, amiodarone was held for 1 day. He had frequent lightheadedness/presyncope. Carotid ultrasound obtained and no significant stenosis. Echocardiogram shows EF of 70% without wall motion abnormality. INR was 1.6. Additional 2.5 mg warfarin was given. And plan to check INR in 3 days as outpatient For his general weakness, he was working with physical therapy and Physical therapy recommended 2-3 days/week outpatient therapy. facility worker will arrange that. Patient was discharged home with home health. Time Spent with Patient Time attestation: Total time spent providing and/or coordinating discharge services: Exam Narrative: APPEARANCE: Pleasant, obese, no acute distress EYES: EOMI HEENT: Normocephalic, atraumatic, OMM RESPIRATORY: No respiratory distress Clear to auscultation bilaterally with no rhonchi wheezing or rales. CARDIOVASCULAR: no murmurs rubs or gallops. ABDOMINAL: Soft, nontender, nondistended, no rebound or guarding MSK: 5/5 motor strength throughout his 4 extremities. NEURO: Awake and alert. Following commands, speech normal, no focal deficits SKIN:: Warm, dry. No rashes lesions or abrasions PSYCHIATRIC: Normal affect/mood, DS: Data Data Completed and Pending Labs on day of discharge: Labs from last 24 hours 06/12/25 06/12/25 06/08/25 10:37 04:57 13:19 WBC 5.4 RBC 3.47 L Hgb 11.3 L Hct 34.4 L MCV 99.1 MCH 32.6 MCHC 32.8 RDW 13.5 Plt Count 209 MPV 9.2 PT 18.7 H INR 1.6 Sodium 129 L Potassium 4.0 Chloride 100 Carbon Dioxide 27 Anion Gap 2 L BUN 17 Creatinine 0.85 Estim Creat Clear Calc 56 Estimated GFR > 60 Glucose 101 Serum Osmolality Pending 257 L Calcium 8.2 L Urine Osmolality Pending Ur Random Sodium 82 Discharge Plan Discharge Attending physician on discharge: Kelly Guzman Consulting providers: Marco Antonio Hutchison Jr. Discharging Clinician: Kelly Guzman Anticipated Discharge Date/Time: 06/12/25 16:17 Patient Disposition: Home with Home Health Service Activity: unlimited Diet: as tolerated Discharge Instructions: Per Care Coordination, patient to discharge with [facility] ([phone]) for PT and penitentiary services. Agency will call to arrange initial visit. If agency is unable to see pt. , then alternate arrangements will be made and pt. notified. Patient Instructions: Antibiotic Form, Warfarin (By mouth) Patient Language: Yakut Stand Alone Forms: General Discharge Information Follow-up/Referrals: Jolynn Greene NP [Primary Care Provider, Family Practice] - 1 Week Discharge Medications: Continued latanoprost 0.005 % drops 1 drop ophthalmic (eye) HS Rx Instructions: 1 drop into both eyes at bedtime cholecalciferol (vitamin D3) 75 mcg (3,000 unit) tablet 75 mcg PO DAILY fluticasone propionate [Flonase Allergy Relief] 50 mcg/actuation spray,suspension 2 spray intranasal DAILY Qty: 48 4RF Rx Instructions: administer into each nostril 1 or 2 sprays once or twice daily p.r.n. congestion albuterol sulfate 90 mcg/actuation HFA aerosol inhaler 1 - 2 inh inhalation Q4H PRN (Reason: shortness of breath or wheezing) Qty: 8.5 11RF ascorbic acid (vitamin C) 1,000 mg Tablet 1 g PO HS amiodarone 200 mg tablet 200 mg PO DAILY B-complex with vitamin C Tablet 1 tablet PO HS warfarin 5 mg tablet 5 mg PO DAILY Rx Instructions: Daily as prescribed by Electronics Recycler acetaminophen [Mapap (acetaminophen)] 325 mg Tablet 650 mg PO Q6H PRN (Reason: Mild Pain (1-3) Or Fever) Qty: 0 0RF fexofenadine [Kat Allergy] 180 mg tablet 180 mg PO DAILY telmisartan 40 mg tablet 40 mg PO HS atorvastatin 10 mg tablet 10 mg PO EVERY OTHER DAY Qty: 90 3RF Rx Instructions: Take Thursday, Thursday, , Thursday montelukast 10 mg tablet 10 mg PO QHS Qty: 90 3RF primidone 250 mg tablet 250 mg PO TID Qty: 270 3RF Discontinued furosemide 20 mg tablet 20 mg PO QAM Other Ambulatory Orders: Basic Metabolic Panel (Routine) Timeframe: 3 Days Location: Determined by Patient Ordered By: Kelly Guzman Prothrombin Time INR (Routine) Timeframe: 3 Days Facility: [facility] - Location: [facility] Outpatient Ordered By: Kelly Guzman Date of admission: 06/09/25 09:57 Primary Care Provider: Jolynn Greene Admitting Provider: Aliyah Beaver Attending physician on admission: Kelly Guzman Condition: Stable
[2025-06-12] MEDS: WARFARIN (*PBKC) 5 MG TABLET PO (16:37)
[2025-06-14 05:08] LABS: Osmolality, Urine 490 mOsmol/kg (.)
[2025-06-14 15:09] LABS: Osmolality, Serum 273 mOsmol/kg (280-301)
== END 2025-06-12 17:52 | disposition home health service (06) | DRG 641 ==
LOC: ANHED 14:41 → ANH3MEDSUR 16:04
PROVIDERS: Student in an Organized Health Care Education/Training Program; Admitting Provider Internal Medicine; Emergency Provider Emergency Medicine; PCP Nurse Practitioner Family; Visit Provider Student in an Organized Health Care Education/Training Program
DX: E87.1 Hypo-osmolality and hyponatremia (principal); I48.20 Chronic atrial fibrillation, unspecified; I50.32 Chronic diastolic (congestive) heart failure; R91.1 Solitary pulmonary nodule; E86.0 Dehydration; E87.6 Hypokalemia; I95.1 Orthostatic hypotension; I87.2 Venous insufficiency (chronic) (peripheral); I11.0 Hypertensive heart disease with heart failure; T50.1X5A Adverse effect of loop [high-ceiling] diuretics, initial encounter; G25.0 Essential tremor; H40.9 Unspecified glaucoma; R79.1 Abnormal coagulation profile; B35.1 Tinea unguium; Z20.822 Contact with and (suspected) exposure to COVID-19; E78.2 Mixed hyperlipidemia; E66.9 Obesity, unspecified; Z68.30 Body mass index [BMI] 30.0-30.9, adult; Z79.01 Long term (current) use of anticoagulants; Z86.16 Personal history of COVID-19
CPT/HCPCS: 36415; 71046; 80048; 80053; 81001; 82948; 83930; 83935; 84300; 84540; 85025; 85027; 85610; 87637; 93005; 93306; 93880; 94640; 97161; 99285; A9270; G0378; J0612; J7030

== ENCOUNTER 2025-06-15 11:07 | Outpatient (NON) | payer MEDICARE, SELFPAY ==
--- OUTSIDE RECORDS SUMMARY | 2009-06-27 09:15 | XMS_ITS | Continuity of Care Document ---
Author Organization [facility] Address [address] [place] [address] [facility] [address] [place] [address] Phone Care Team Providers Care Electrician Crane Maintenance Name Role Phone Haris Hinojosa Unavailable Unavailable Procedures Procedure Date Eye Exam, New Patient Dilated Retinal Exam W Interpretation Se Refraction Advance Directives Directive Yes / No Effective Date File Name No Information Encounters Encounter Description Practice Location Reason(s) For Visit Diagnoses Date Provider Providers Copied on Encounter [facility], [address], [place], [place], [address], [place] tel:[phone] [facility] No Information 9-200 9 Micaela Carballo. [address] [facility] [address], [place], [address], [place]. tel:[phone] Family History Family Member Type Diagnosis Age At Onset No Information Payers Payer name Insurance type Covered constitution party ID Authoriza tion(s) [place] [id number] [place] Commercial [place] [id number] Social History Type Description Quantity Date Captured [...]
--- OUTSIDE RECORDS SUMMARY | 2012-07-23 04:30 | XMS_ITS | Continuity of Care Document ---
Author Organization [facility] Address [address] [place] [address] Phone Care Team Providers Care Rehabilitation Services Manager Name Role Phone Unavailable Unavailable Unavailable Allergies, Adverse Reactions, Alerts Substance Reaction Status Criticality naproxen Active No Information Procedures Procedure Date Asp/inject major joint or bursa 012 Kenalog Triamcinolone acetonide inj MRI upr extr joint, w/o contrast 2011 Office/outpatient visit,[facility] 2011 Advance Directives Directive Yes / No [...] Date Provider Providers Copied on Encounter [facility], [address], [place], [place], [address], [place] tel:[phone] [facility] JOINT PAIN-SHLDER SHOULDER REGION DIS NECLOC PRIM OSTEOART-SH LDERROTATOR CUFF DIS NEC -201 2 No Information [facility], [address], [place], [place], [address], [place] tel:[phone] [facility] ROTATOR CUFF SYND NOSROTATOR CUFF DIS NECLOC PRIM OSTEOART-SH LDER Jun- 2 [facility]. [address], [place], [place], [address], [place]. tel:[phone] Office/outpat ient visit,[facility], [address], [place], [place], [address], tel:[phone] [facility] Office SHOULDER REGION DIS NECJOINT PAIN-SHLDER Jun- 2 No Information Family History Family Member Type Diagnosis Age At Onset No Information Immunizations Vaccine Date Status Comments Flu (split) (3 yrs or older) administered Source: New Immunization Record pneumo (2 yrs or older) (PPV23) administered Source: New Immuniza tion Record Payers Payer name Insurance type Covered alliance party ID Authoriza tion(s) Medicare [place] Part B [id number] [facility] [id number] Social History Type Description Quantity Date [...]
--- OUTSIDE RECORDS SUMMARY | 2025-06-15 11:10 | XMS_ITS | Clinical Summary ---
Author Organization [facility] Address [address] [place] [address] Care Team Providers Care Legal Secretary Name Role Phone Hector Graham MD Primary [...] 07/07 Cervical disc disease 06/13/2019 Atrial fibrillation ([facility]) 05/07/2017 Paroxysmal atrial fibrillation ([facility]) 05/07/2017 Immunizations Immunization Administration Dates Next Due [...] Counseling Given: Yes Comments:1/2 pouch/day PCP to summer counselor Alcohol Use Standard Drinks/Week Comments Not [...] age to complete this topic Insurance MEDICARE [facility] Care Teams Legal Secretary Relationship Specialty Start Date End Date Hector Graham MD PCP - General INTERNAL MEDICINE 05/16/19
--- OUTSIDE RECORDS SUMMARY | 2025-06-15 11:10 | XMS_ITS | Clinical Summary ---
Author Organization [employer] [id number] Address [address] [place] [address] Care Team Providers Care Gauger Chief Delivery Name Role Phone Hector Graham MD Primary Care Provider [phone] Allergies Active Allergy Reactions Criticality Noted Date [...] capsule Take by oral route. Active fexofenadine (ALXEI ALLERGY) 180 mg tablet every 24 hours. [...] A AND B BCBS SUPP Care Teams Gauger Chief Delivery Relationship Specialty Start Date End Date Hector Graham MD [address] [place] [address] PCP - General Internal Medicine 06/13/19
--- OUTSIDE RECORDS SUMMARY | 2025-06-15 11:11 | XMS_ITS | Encounter Summary ---
Author Organization [facility] Address [address] [place] [address] Care Team Providers Care Brand Designer Name Role Phone Alexander Fraire MD Primary Care Provider [phone] Santos Alanis MD, Hector Nam Primary Care Provider Willian Elise MD Primary Care Provider [phone] Encounter Details Date Type Department Care Team (Late st Contact Info) Description 12/18/2017 Orders Only [facility] Health Information Management [address] [place] [id number] Scanning, Provider Social History Tobacco Use Types Packs/Day Years Used Date Smoking Tobacco: Never Smokeless Tobacco: Former Alcohol Use Standard Drinks/Week Comments No 0 (1 standard drink = 0.6 oz pur e alcohol) Sex and Gender Information Value Date Recorded Sex Assigned at Not on file 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
--- OUTSIDE RECORDS SUMMARY | 2025-06-15 11:11 | XMS_ITS | Clinical Summary ---
Author Organization [facility] [address] Address [address] [place] [address] Care Team Providers Care Health Actuary Name Role Phone Willian Elise MD Primary Care Provider [phone] Allergies Active Allergy Reactions Criticality Noted Date [...] Type Department Care Team Description 05/23/2025 Telephone [facility] Cardiology [address] [address] [place] [address] Jaiden Pisano MD 05/10/2025 Anticoagulation Visit [facility] Cardiology at [address] [place] [id number] Itzel Fofana RN Atrial fibrillation (CMS/HCC) [I48.91] (Primary Dx); Paroxysmal atrial fibrillation (HCC) 05/10/2025 Orders Only [facility] Cardiology [address] [place] [address] Jaiden Pisano MD 04/14/2025 Anticoagulation Visit [facility] Cardiology [address] [place] [address] Itzel Fofana RN Atrial fibrillation (CMS/HCC) [I48.91] (Primary Dx); Paroxysmal atrial fibrillation (HCC) 04/14/2025 Orders Only [facility] Cardiology [address] [facility] [address] [place] [address] Jaiden Pisano MD from Last 3 Months [...] on file 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 Gender Identity Not on file Sexual Orientation [...] Pneumococcal vaccine 65+ (2 of 2 - PCV20 or PCV21) 07/21/2020 07/21/2019, 07/09/2017 Influenza Vaccine (#1) 2025 4, 06/12/2020, 07/07/2019, Additional history exists DTaP/Tdap/Td Vaccine (3 - Td or Tdap) 07/21/2029 07/21/2019, 02/11/2018 Zoster Vaccine Completed 12/22/2019, 12/17/2019 Procedures Procedure Name Priority Date/Time Associated Diagnosis Comments PROTIME-INR Routine 05/10/2025 7:10 AM CDT PROTIME-INR Routine 04/14/2025 7:08 AM CDT from Last 3 Months Results * (ABNORMAL) Protime-INR (05/10/2025 7:10 AM CDT) INR 2.6(H) WickrNinfa Ponce Comment: Reference Range 0.9-1.1 Moderate-intensity Warfarin Therapy 2.0-3.0 Higher-intensity Warfarin Therapy 3.0-4.0 PT 26.6(H) 9.0 - 11.5 sec MANGO BCNCecelia Ponce Comment: For additional information, please refer to http://education.Active Media/faq/FIC074 (This link is being provided for informational/ educational purposes only.) 05/10/2025 7:10 AM CDT 05/10/2025 7:11 AM CDT us Jaiden Pisano MD LAB BLOOD ORDERABLES Fin al Result Social RecruitingChris Ponce [address] [place] [address] * (ABNORMAL) Protime-INR (04/14/2025 7:08 AM CDT) INR 2.1(H) MANGO BCNCecelia Ponce Comment: Reference Range 0.9-1.1 Moderate-intensity Warfarin Therapy 2.0-3.0 Higher-intensity Warfarin Therapy 3.0-4.0 PT 21.6(H) 9.0 - 11.5 sec Rebeca Ponce Comment: For additional information, please refer to http://education.[employer]/faq/NVX252 (This link is being provided for informational/ educational purposes only.) 04/14/2025 7:08 AM CDT 04/14/2025 7:09 AM CDT Jaiden Pisano MD LAB BLOOD ORDERABLES Fin al [facility] [address] [place] [address] from Last 3 Months Insurance MEDICARE MEDICARE [facility] MEDICARE SUPPLEMENT Care Teams Health Actuary Relationship Specialty Start Date End Date Willian Elise MD [address] [address] PCP - General Family Medicine 05/28/21
--- OUTSIDE RECORDS SUMMARY | 2025-06-15 11:11 | XMS_ITS | Encounter Summary ---
Author Organization [facility] Address [address] [place] [address] Phone Care Team Providers Care Psychiatric Social Worker Supervisor Name Role Phone Santos Alanis MD, Hector Nam Primary Care Provider Willian Elise MD Primary Care Provider [phone] Encounter Details Date Type Department Care Team (Late st Contact Info) Description 08/23/2018 Telephone [facility] Cardiology [facility] Advanced Medicine 8th [place] [address] [place] [address] Rachelle Ludwig, MPH Social History Tobacco Use Types Packs/Day Years Used Date Smoking Tobacco: Never Smokeless Tobacco: Former Alcohol Use Standard Drinks/Week Comments No 0 (1 standard drink = 0.6 oz pur e alcohol) Sex and Gender Information Value Date Recorded Sex Assigned at Not on file 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 [place] [address] PCP - General Geriatric Medicine 06/17/18 05/27/21 Willian Elise MD [address] [address] PCP - General Family Medicine 05/28/21 documented as of this encounter
[2025-06-15 11:51] LABS: INR 1.5; Prothrombin Time 18.1 Seconds (11.1-14.7)
[2025-06-15 11:57] LABS: Anion Gap 3 mmol/L (4-12); Blood Urea Nitrogen 14 mg/dL (9-20); Calcium 8.5 mg/dL (8.4-10.2); Carbon Dioxide 29 mmol/L (22-30); Chloride 97 mmol/L (98-107); Estimated Glomerular Filt Rate > 60; Glucose 80 mg/dL (65-110); Potassium 4.7 mmol/L (3.4-5.0); Sodium 129 mmol/L (137-145)
== END 2025-06-15 11:08 | disposition home or self-care (01) ==
PROVIDERS: PCP Nurse Practitioner Family; Referring Provider Nurse Practitioner Family; Visit Provider Student in an Organized Health Care Education/Training Program
DX: E87.1 Hypo-osmolality and hyponatremia (principal); R79.1 Abnormal coagulation profile
CPT/HCPCS: 80048; 85610

== ENCOUNTER 2025-06-22 11:05 | Outpatient (CLI) | payer MEDICARE, SELFPAY ==
--- OUTSIDE RECORDS SUMMARY | 2009-06-27 09:15 | XMS_ITS | Continuity of Care Document ---
Author Organization [facility] Address [address] [place] [address] [facility] [address] [place] [address] Phone Care Team Providers Care Sample Steamer Name Role Phone Haris Hinojosa Unavailable Unavailable Procedures Procedure Date Eye Exam, New Patient Dilated Retinal Exam W Interpretation Se Refraction Advance Directives Directive Yes / No Effective Date File Name No Information Encounters Encounter Description Practice Location Reason(s) For Visit Diagnoses Date Provider Providers Copied on Encounter [facility], [address], [place], [place], [address], [place] tel:[phone] [facility] No Information 9-200 9 Micaela Carballo. [address] [facility] [address], [address], [place]. tel:[phone] Family History Family Member Type Diagnosis Age At Onset No Information Payers Payer name Insurance type Covered alliance party ID Authoriza tion(s) Medicare [place] MB [id number] [place] Commercial [place] [id number] Social History Type Description Quantity Date Captured [...]
--- OUTSIDE RECORDS SUMMARY | 2012-07-23 04:30 | XMS_ITS | Continuity of Care Document ---
Author Organization [facility] Address [address] [place] [address] Phone Care Team Providers Care Lay Brother Name Role Phone Unavailable Unavailable Unavailable Allergies, Adverse Reactions, Alerts Substance Reaction Status Criticality naproxen Active No Information Procedures Procedure Date Asp/inject major joint or bursa 012 Kenalog Triamcinolone acetonide inj MRI upr extr joint, w/o contrast 2011 Office/outpatient visit,[facility] 2011 Advance Directives Directive Yes / No [...] Date Provider Providers Copied on Encounter [facility], [address], [place], [place], [address], [place] tel:[phone] [facility] JOINT PAIN-SHLDER SHOULDER REGION DIS NECLOC PRIM OSTEOART-SH LDERROTATOR CUFF DIS NEC 201 2 No Information [facility], [address], [place], [place], [address], [place] tel:[phone] [facility] ROTATOR CUFF SYND NOSROTATOR CUFF DIS NECLOC PRIM OSTEOART-SH LDER Jun- 2 [facility]. [address], [place], [place], [address], [place]. tel:[phone] Office/outpat ient visit,[facility], [address], [place], [place], [address], tel:[phone] [facility] Office SHOULDER REGION DIS NECJOINT PAIN-SHLDER Jun- 2 No Information Family History Family Member Type Diagnosis Age At Onset No Information Immunizations Vaccine Date Status Comments Flu (split) (3 yrs or older) administered Source: New Immunization Record pneumo (2 yrs or older) (PPV23) administered Source: New Immuniza tion Record Payers Payer name Insurance type Covered republican ID Authoriza tion(s) [place] Part B [id number] [facility] [id number] Social History Type Description Quantity Date [...]
--- OUTSIDE RECORDS SUMMARY | 2025-06-22 10:00 | XMS_ITS | Encounter Summary ---
Author Organization [facility] Healthcare Address [address] [place] [address] Care Team Providers Care Steel Barrel Reamer Name Role Phone Jolynn [place] SITE PHYSICIAN Primary Care Provider [phone] Reason for Visit * Reason Comments Hospital Follow Up Encounter Details Date Type Department Care Team (Late st Contact Info) Description 06/22/2025 10:00 AM CDT Office Visit [facility] Cardiology [address] [place] [address] Arleth Franklin NP [address] [place] [address] Vasovagal near syncope; Hyponatremia; Edema, lower extremity; Paroxysmal atrial fibrillation (HCC); Chronic anticoagulation; Hospital discharge follow-up Social History Tobacco Use Types Packs/Day Years Used Date Smoking Tobacco: Never Smokeless Tobacco: Current Chew Alcohol Use Standard Drinks/Week Comments No 0 (1 standard drink = 0.6 oz pur e alcohol) Sex and Gender Information Value Date Recorded Sex Assigned at Not on file 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 Gender Identity Not on file Sexual Orientation Not on file documented as of this encounter Last Filed Vital Signs Vital Sign Reading Time Taken Comments Blood Pressure 150/68 06/22/2025 10:01 AM CDT Pulse 56 06/22/2025 10:01 AM CDT Temperature - - Respiratory Rate 16 06/22/2025 10:01 AM CDT Oxygen Saturation 98% 06/22/2025 10:01 AM CDT Inhaled Oxygen Concentration - - Weight 100.2 kg (221 lb) 06/22/2025 10:01 AM CDT Height 180.3 cm (5' 11) 06/22/2025 10:01 AM CDT Body Mass Index 30.82 06/22/2025 10:01 AM CDT documented in this encounter Ordered Prescriptions Prescription Sig Dispense Quantity Refills Last Filled Start Date End Date furosemide (LASIX) 20 mg tabletIndications:E kristy, lower extremity Take 1 tablet (20 mg total) by mouth 3 (three) times a week Mon, Wed, Fri 06/23/2025 documented in this encounter Progress Notes * Arleth Franklin NP - 06/22/2025 10:00 AM CDT Images from the original note were not included. [facility] Cardiology [address] [place] [address] Date of Visit: 06/22/2025 Patient ID: Truong Higuera 1935 Chief Complaint Patient presents with Hospital Follow Up Truong Higuera is a 89 y.o. male who is an established patient of Dr. Pisano with a historyof atrial fibrillation coming to the office for follow- up after being hospitalized for having a near syncopal episode. History of Present Illness: Truong Higuera is a 89 y.o. male who presents for follow up of paroxysmal atrial fibrillation.This is a patient who 1st was found to have P AFib in 2013. He was treated with Multaq initially with suboptimal success and was transitioned to amiodarone in December of 2015. Since then he has generally done well. He did have a recurrence of atrial fib and April of 2017 when he came to the emergency room and spontaneously reverted back to sinus rhythm. He had been on anticoagulation in the form of warfarin in the past he developed a strange abdominal wall hematoma following coughing that resultedin significant anemia and I believe anticoagulation was interrupted for a while and then resumed. In 2021 I believe he was hospitalized with a fall and a right hip fracture and underwent hip replacement at that time. 06/22/2025 hospital follow-up visit with SITE PHYSICIAN: He was admitted to [facility] on 06/08/2025 after he had a near syncopal episode at home. He remembers blacking out but he was still conscious and could hear his family talking to him but could not respond. EMS was called and he had a systolic BP a round 90 and was in AFib. Once it [facility] he was found to have hyponatremia with a sodiumlevel of 127 he had had a prior admission 2 weeks earlier for nausea, vomiting, diarrhea and was hyponatremic. His Lasix was discontinued. Amiodarone was held for a day due to asymptomatic bradycardia. Carotid ultrasound unremarkable. Echocardiogram showed hyperdynamic LV systolic function with EF greater than 70%, indeterminate LV diastolic function, mild LAE, technically difficult study with limited views. He returns to the office today accompanied by his daughter. His home weight went up 3-1/2 lb from yesterday to today and he feels like he is retaining fluid in his belly and in the left foot. He denies shortness of breath. Reports that he has had other instances this near syncopal episode, with a prodrome of nausea where he has a enough time to sit down or lay down. He in his daughterthink there may be a component of emotional stress involved in this as he recently had the end to a relationship with someone he was close to. Medical History: Past Medical History: Diagnosis Date Atrial fibrillation (HCC) History reviewed. No pertinent surgical history. Social History Tobacco Use Smoking Status Never Smokeless Tobacco Current Types: Chew Social History Tobacco Use Smoking status: Never Smokeless tobacco: Current Types: Chew Substance and Sexual Activity Drug use: No Sexual activity: None Alcohol Use: Not on file No family history on file. Review of Systems Constitutional: Positive for weight gain. Negative for malaise/fatigue and weight loss. Cardiovascular: Positive for leg swelling and near-syncope. Negative for chest pain, orthopnea, palpitations, paroxysmal nocturnal dyspnea and syncope. Respiratory: Negative for cough, shortness of breath and sleep disturbances due to breathing. Hematologic/Lymphatic: Negative for bleeding problem. Does not bruise/bleed easily. Vital Signs: BP 150/68 (BP Location: Left arm, Patient Position: Sitting) Pulse 56 Resp 16 Ht 180.3 cm (5'11) Wt 100.2 kg (221 lb) SpO2 98% BMI 30.82 kg/m?? Physical Exam Constitutional: General: He is not in acute distress. Appearance: He is well-developed. HENT: Head: Normocephalic and atraumatic. Eyes: General: No scleral icterus. Conjunctiva/sclera: Conjunctivae normal. Neck: Vascular: No JVD. Trachea: No tracheal deviation. Cardiovascular: Rate and Rhythm: Regular rhythm. Bradycardia present. Heart sounds: Normal heart sounds. No murmur heard. Pulmonary: Effort: Pulmonary effort is normal. No respiratory distress. Breath sounds: Normal breath sounds. Musculoskeletal: Comments: Trace bilateral pretibial edema L>R (but shoes not removed for exam, amount of edema in feet not assessed). Skin: General: Skin is warm and dry. Neurological: Mental Status: He is alert and oriented to person, place, and time. Psychiatric: Mood and Affect: Mood normal. Behavior: Behavior normal. Allergies Allergen Reactions Aminosalicylic Acid Anaphylaxis, Shortness of breath and Swelling Naproxen Swelling Sodium Unknown Current Outpatient Medications: albuterol HFA (PROVENTIL HFA,VENTOLIN HFA,PROAIR HFA) 90 mcg/actuation inhaler, INHALE 1 TO 2 PUFFSBY MOUTH EVERY 4 HOURS NEEDED FOR SHORTNESS OF BREATH OR WHEEZING, Disp: , Rfl: amiodarone (PACERONE) 200 mg tablet, TAKE 1 TABLET BY MOUTH EVERY DAY, Disp: 90 tablet, Rfl: 2 ascorbic acid (vitamin C) 100 mg tablet, take 1 by Oral route once, Disp: 0, Rfl: 0 atorvastatin (LIPITOR) 10 mg tablet, take 1 tablet by oral route every day at bedtime, Disp: 0, Rfl: 0 busPIRone (BUSPAR) 5 mg tablet, Take 1 tablet (5 mg total) by mouth daily Increase to 1 tablet twice a day after day 3, Disp: , Rfl: cholecalciferol (VITAMIN D-3) 2000 unit capsule, Take 2 capsules (4,000 Units total) by mouth daily, Disp: , Rfl: fexofenadine (ALEXI) 60 mg tablet, Take 1 tablet (60 mg total) by mouth daily, Disp: , Rfl: latanoprost (XALATAN) 0.005 % ophthalmic solution, instill 1 drop by ophthalmic route every day into affected eye(s) in the evening, Disp: 0, Rfl: 0 montelukast (SINGULAIR) 10 mg tablet, take 1 tablet by oral route every day in the evening, Disp: 0, Rfl: 0 primidone (MYSOLINE) 250 mg tablet, Take 1 tablet (250 mg total) by mouth 4 (four) times a day, Disp: , Rfl: telmisartan (MICARDIS) 80 mg tablet, take 1 tablet by oral route every day, Disp: 0, Rfl: 0 triamcinolone (KENALOG) 0.1 % cream, Apply topically 2 (two) times a day for 7 days, Disp: 45 g, Rfl: 1 vitamin B complex capsule, Take 1 capsule by mouth daily, Disp: , Rfl: warfarin (COUMADIN) 5 mg tablet, 1 TAB (5 MG) 5 DAYS A WEEK (THU, THU, THU, THU, THU) & 1&1/2 TABS (7.5 MG) ON , OR DIR, Disp: 135 tablet, Rfl: 0 [START ON 06/23/2025] furosemide (LASIX) 20 mg tablet, Take 1 tablet (20 mg total) by mouth 3 (three)times a week Thu, Thu, Thu, Disp: , Rfl: warfarin (COUMADIN) 7.5 mg tablet, Take 1 tablet (7.5 mg total) by mouth daily (Patient not taking:Reported on 06/22/2025), Disp: 90 tablet, Rfl: 0 Lab Results Component Value Date POTASSIUM 3.9 09/04/2023 BUNSER 15 09/04/2023 CREATININE 1.06 09/04/2023 EGFR 68 09/04/2023 No results found for: WBC, HGB, HCT, MCV, PLT No results found for this or any previous visit (from the past 4 hours). Lab Results Component Value Date POCCHOL 168 06/17/2018 POCHDL 51 06/17/2018 POCTRIG 238 06/17/2018 POCLDL 70 06/17/2018 POCNONHDL 117 06/17/2018 POCCHLPL 168 06/17/2018 Assessment: Diagnoses and all orders for this visit: Vasovagal near syncope Hyponatremia Edema, lower extremity - furosemide (LASIX) 20 mg tablet; Take 1 tablet (20 mg total) by mouth 3 (three) times a week Thu,Thu, Thu Paroxysmal atrial fibrillation (HCC) Chronic anticoagulation Hospital discharge follow-up Plan/Recommendations: His near syncopal episodes sound like they could be vasovagal syncope. I believe his hyponatremia is chronic therefore I do not recommend fluid restriction, but rather continue to drink liquids as hehas been. Gatorade is okay too. Resume furosemide but reduced dosing to furosemide 20 mg 3 days a week (Thursday, Thursday, Thursday). For his history of atrial fibrillation continue amiodarone and warfarin. He is getting another INR checked today and we will call him when we have the result. For now he will keep his previously scheduled office visit with Dr. Pisano in 3 weeks but if he is feeling well closer to that time, he can call and reschedule that appointment to 6 months' time. My total encounter time on 06/22/2025 was 45 minutes which was spent in the activities documented in the note. This includes time spent prior to the visit and after the visit in direct care of the patient. This time does not include time spent in any separately reportable services. 06/22/2025 RODRIGUE Jalloh-DIANA Nurse Practitioner with [facility] Cardiology This note is dictated and transcribed using Coin [employer] Software. Electrical Hardware Engineer variancesmay occur. Despite proofreading, typographical errors may occur. documented in this encounter Plan of Treatment Not on file documented as of this encounter Visit Diagnoses Diagnosis Vasovagal near syncope Syncope and collapse Hyponatremia Hyposmolality and/or hyponatremia Edema, lower extremity Paroxysmal atrial fibrillation (HCC) Atrial fibrillation Chronic anticoagulation Encounter for long-term (current) use of anticoagulants Hospital discharge follow-up Other follow-up examination documented in this encounter Discontinued Medications Medication Sig Discontinue Reason Start Date End Da te furosemide (LASIX) 20 mg tablet TAKE 1 TABLET BY MOUTH EVERY DAY 04/17/2025 06/22/2025 metFORMIN (GLUCOPHAGE) 1,000 mg tablet take 1 tablet by oral route 2 times every day with morning and evening meals No longer taking - Do not display on AVS 07/06/2015 06/22/2025 documented as of this encounter Historical Medications * This list may reflect changes made after this encounter. busPIRone (BUSPAR) 5 mg tablet Take 1 tablet (5 mg total) by mouth daily Increase to 1 tablet twice a day after day 3 06/20/2025 added in this encounter Care Teams Steel Barrel Reamer Relationship Specialty Start Date End Date Jolynn [place] NP [address] [address] PCP - General Family Medicine 06/22/25 documented as of this encounter
--- OUTSIDE RECORDS SUMMARY | 2025-06-22 11:52 | XMS_ITS | Encounter Summary ---
Author Organization [facility] Healthcare Address [address] [place] [address] Care Team Providers Care Director Regulatory Agency Name Role Phone Alexander Fraire MD Primary Care Provider [phone] Santos Alanis MD, Hector Nam Primary Care Provider Willian Elise MD Primary Care Provider [phone] Jolynn [place] NP Primary Care Provider [phone] Encounter Details Date Type Department Care Team (Late st Contact Info) Description 12/18/2017 Orders Only [facility] Health Information Management [address] [place] [address] Scanning, Provider Social History Tobacco Use Types Packs/Day Years Used Date Smoking Tobacco: Never Smokeless Tobacco: Former Alcohol Use Standard Drinks/Week Comments No 0 (1 standard drink = 0.6 oz pur e alcohol) Sex and Gender Information Value Date Recorded Sex Assigned at Not on file 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 Gender Identity Not on file Sexual Orientation [...] filedocumented in this encounter Care Teams Director Regulatory Agency Relationship Specialty Start Date End Date Alexander Fraire MD PCP - General 01/16/17 06/16/18 Hector Graham Jr., MD [address] [place] [address] PCP - General Geriatric Medicine 06/17/18 05/27/21 Willian Elise MD [address] [place] [address] PCP - General Family Medicine 05/28/21 06/21/25 Jolynn [place] NP [address] [place] [address] PCP - General Family Medicine 06/22/25 documented as of this encounter
--- OUTSIDE RECORDS SUMMARY | 2025-06-22 11:52 | XMS_ITS | Clinical Summary ---
Author Organization [employer] [address] Address [address] [place] [address] Care Team Providers Care Rotary Lithographic Press Operator Name Role Phone Hector Graham MD Primary Care Provider [phone] Allergies Active Allergy Reactions Criticality Noted Date [...] A AND B BCBS SUPP Care Teams Rotary Lithographic Press Operator Relationship Specialty Start Date End Date Hector Graham MD [address] [place] [address] PCP - General Internal Medicine 06/13/19
--- OUTSIDE RECORDS SUMMARY | 2025-06-22 11:52 | XMS_ITS | Clinical Summary ---
Author Organization [facility] [address] Address [address] [place] [address] Care Team Providers Care Welder Shielded Metal Arc Name Role Phone Jolynn Greene NP Primary Care Provider [phone] Allergies Active Allergy Reactions Criticality Noted Date Comments Aminosalicylic Acid Anaphylaxis,Shortnes s of breath,Swelling High 07/14/2019 Naproxen Swelling High 04/18/2011 Sodium Unknown 07/14/2019 Medications latanoprost (XALATAN) 0.005 % ophthalmic solution instill 1 drop by ophthalmic route every day into affected eye(s) in the evening 0 0 07/06/20 15 Active ascorbic acid (vitamin C) 100 mg tablet take 1 by Oral route once 0 0 07/06/20 15 Active montelukast (SINGULAIR) 10 mg tablet take 1 tablet by oral route every day in the evening 0 0 07/06/20 15 Active telmisartan (MICARDIS) 80 mg tablet take 1 tablet by oral route every day 0 0 03/04/20 16 Active atorvastatin (LIPITOR) 10 mg tablet take 1 tablet by oral route every day at bedtime 0 0 03/12/20 17 Active primidone (MYSOLINE) 250 mg tablet Take 1 tablet (250 mg total) by mouth 4 (four) times a day Active cholecalcifero l (VITAMIN D-3) 2000 unit capsule Take 2 [...] mouth daily Active triamcinolone (KENALOG) 0.1 % creamIndicatio ns:Irritant contact dermatitis, unspecified trigger Apply topically 2 (two) times a day for 7 days 45 g 1 09/07/20 23 Active warfarin (COUMADIN) 7.5 mg tablet Take 1 tablet (7.5 mg total) by mouth daily 90 tablet 04/29/20 24 Active Additional Information Patient not taking.Reported on 06/22/2025 amiodarone (PACERONE) 200 mg tablet TAKE 1 TABLET BY MOUTH EVERY DAY 90 tablet 2 04/11/20 25 Active warfarin (COUMADIN) 5 mg tablet 1 TAB (5 MG) 5 DAYS A WEEK (SUN, THU, THU, THU, SAT) & 1&1/2 TABS (7.5 MG) ON , OR DIR 135 tablet 05/18/20 25 Active busPIRone (BUSPAR) 5 mg tablet Take 1 tablet (5 mg total) by mouth daily Increase to 1 tablet twice a day after day 3 06/20/20 25 Active furosemide (LASIX) 20 mg tabletIndicati ons:Edema, lower extremity Take 1 tablet (20 mg total) by mouth 3 (three) times a week Mon, Thu, Thu06/23/20 25 Active metFORMIN (GLUCOPHAGE) 1,000 mg tablet take 1 tablet by oral route 2 times every day with morning and evening meals 0 0 07/06/20 15 025 Discontinued(N o longer taking - Do not display on AVS) furosemide (LASIX) 20 mg tablet TAKE 1 TABLET BY MOUTH EVERY DAY 90 tablet 1 04/17/20 25 025 Discontinued Active Problems Problem Noted Date Diagnosed Date Atrial fibrillation (CMS/HCC) [I48.91] 7 Paroxysmal atrial fibrillation 05/07/2017 Encounters Date Type Department Care Team Description 06/22/2025 10:00 AM CDT Office Visit [facility] Cardiology [address] [place] [address] Arleth Franklin NP Vasovagal near syncope; Hyponatremia; Edema, lower extremity; Paroxysmal atrial fibrillation (HCC); Chronic anticoagulation; Hospital discharge follow-up 06/15/2025 Anticoagulation Visit [facility] Cardiology [address] [facility] [address] [place] [address] Chelsie Briseno RN Atrial fibrillation ([facility]/HCC) [I48.91] (Primary Dx); Paroxysmal atrial fibrillation (HCC) 05/23/2025 Telephone [facility] Cardiology [address] [place] [address] [address] [place] [address] Jaiden Pisano MD 05/10/2025 Anticoagulation Visit [facility] Cardiology at [address] [place] [address] Itzle Fofana RN Atrial fibrillation ([facility]/HCC) [I48.91] (Primary Dx); Paroxysmal atrial fibrillation (HCC) 05/10/2025 Orders Only [facility] Cardiology [address] [place] [address] [address] [place] [address] Jaiden Pisano MD 04/14/2025 Anticoagulation Visit [facility] Cardiology [address] [place] [address] [address] [place] [address] Itzel Fofana RN Atrial fibrillation ([facility]/HCC) [I48.91] (Primary Dx); Paroxysmal atrial fibrillation (HCC) 04/14/2025 Orders Only [facility] Cardiology [address] [place] [address] [address] [place] [address] Jaiden Pisano MD from Last [...] on file 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 Gender Identity Not on file Sexual Orientation [...] Mass Index 30.82 06/22/2025 10:01 AM CDT Plan of Treatment Health Maintenance Due Date Last Done Comments Depression Screening 1937 Fall Risk Assessment 1937 Hepatitis B Screening 1955 Well Visit 65+ 2002 Pneumococcal vaccine 65+ (2 of 2 - PCV20 or PCV21) 07/21/2020 07/21/2019, 07/09/2017 Influenza Vaccine (#1) 2025 4, 06/12/2020, 07/07/2019, Additional history exists DTaP/Tdap/Td Vaccine (4 - Td or Tdap) 07/21/2029 07/21/2019, 02/12/2018, 02/11/2018 Zoster Vaccine Completed 12/22/2019, 12/17/2019 Procedures Procedure Name Priority Date/Time Associated Diagnosis Comments PROTIME-INR Routine 06/15/2025 PROTIME-INR Routine 05/10/2025 7:10 AM CDT PROTIME-INR Routine 04/14/2025 7:08 AM CDT from Last 3 Months Results * (ABNORMAL) Protime-INR (06/15/2025) INR 1.50(A) 0.90 - 1.10 EXTERNAL INTERFACED LAB Blood us Historical Provider LAB BLOOD ORDERABLES Mitzi l Result EXTERNAL INTERFACED LAB [address] [place] [address] * (ABNORMAL) Protime-INR (05/10/2025 7:10 AM CDT) INR 2.6(H) [facility] Comment: Reference Range 0.9-1.1 Moderate-intensity Warfarin Therapy 2.0-3.0 Higher-intensity Warfarin Therapy 3.0-4.0 PT 26.6(H) 9.0 - 11.5 sec [facility] Comment: For additional information, please refer to http://Tistagames.Anchiva Systems/faq/BBS853 (This link is being provided for informational/ educational purposes only.) 05/10/2025 7:10 AM CDT 05/10/2025 7:11 AM CDT Jaiden Pisano MD LAB BLOOD ORDERABLES Fin al Result Performing Organization Address [facility] de Phone Number [facility] [address] [place] [address] * (ABNORMAL) Protime-INR (04/14/2025 7:08 AM CDT) INR 2.1(H) [facility] Comment: Reference Range 0.9-1.1 Moderate-intensity Warfarin Therapy 2.0-3.0 Higher-intensity Warfarin Therapy 3.0-4.0 PT 21.6(H) 9.0 - 11.5 sec [facility] Comment: For additional information, please refer to http://Tistagames.Anchiva Systems/faq/XIL092 (This link is being provided for informational/ educational purposes only.) 04/14/2025 7:08 AM CDT 04/14/2025 7:09 AM CDT Jaiden Pisano MD LAB BLOOD ORDERABLES Fin al Result Performing Organization Address [facility] Co de Phone Number [facility] [address] [place] [address] from Last 3 Months Insurance MEDICARE MEDICARE [employer] MEDICARE SUPPLEMENT Care Teams Welder Shielded Metal Arc Relationship Specialty Start Date End Date Jolynn Greene NP [address] [address] PCP - General Family Medicine 06/22/25
--- OUTSIDE RECORDS SUMMARY | 2025-06-22 11:52 | XMS_ITS | Clinical Summary ---
Author Organization [facility] Address [address] [place] [address] Care Team Providers Care Stretcher And Drier Name Role Phone Hector Graham MD Primary [...] 07/07 Cervical disc disease 06/13/2019 Atrial fibrillation ([facility]) 05/07/2017 Paroxysmal atrial fibrillation ([facility]) 05/07/2017 Immunizations Immunization Administration Dates [...] Counseling Given: Yes Comments:1/2 pouch/day PCP to auto club travel counselor Alcohol Use Standard Drinks/Week Comments Not [...] COVID-19 Vaccine (1 - 2023-2 5 season) 2025 DTaP, Tdap and Td Vaccines ( 3 [...] age to complete this topic Insurance MEDICARE [facility] Care Teams Stretcher And Drier Relationship Specialty Start Date End Date Hector Graham MD PCP - General INTERNAL MEDICINE 05/16/19
--- OUTSIDE RECORDS SUMMARY | 2025-06-22 11:52 | XMS_ITS | Encounter Summary ---
Author Organization [facility] Address [address] [place] [address] Phone Care Team Providers Care Human Resources Designate Name Role Phone Santos Alanis MD, Hector Nam Primary Care Provider Willian Elise MD Primary Care Provider [phone] Jolynn Greene NP Primary Care Provider [phone] Encounter Details Date Type Department Care Team (Late st Contact Info) Description 08/23/2018 Telephone [facility] Cardiology [address] [facility] Advanced Medicine [address]th [place] [address] [place] [address] Rachelle Ludwig, MPH Social History Tobacco Use Types Packs/Day Years Used Date Smoking Tobacco: Never Smokeless Tobacco: Former Alcohol Use Standard Drinks/Week Comments No 0 (1 standard drink = 0.6 oz pur e alcohol) Sex and Gender Information Value Date Recorded Sex Assigned at Not on file 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 Gender Identity Not on file Sexual Orientation Not on file documented as of this encounter Plan of Treatment Not on file documented as of this encounter Visit Diagnoses Not on filedocumented in this encounter Care Teams Human Resources Designate Relationship Specialty Start Date End Date Hector Graham Jr., MD [address] [place] [address] PCP - General Geriatric Medicine 06/17/18 05/27/21 Willian Elise MD [address] [facility] [address] [place] [address] PCP - General Family Medicine 05/28/21 06/21/25 Jolynn Greene NP [address] [employer] [address] [place] [address] PCP - General Family Medicine 06/22/25 documented as of this encounter
[2025-06-22 12:35] LABS: INR 2.2; Prothrombin Time 23.5 Seconds (11.1-14.7)
[2025-06-22 12:47] LABS: Anion Gap 4 mmol/L (4-12); Blood Urea Nitrogen 14 mg/dL (9-20); Calcium 8.3 mg/dL (8.4-10.2); Carbon Dioxide 28 mmol/L (22-30); Chloride 98 mmol/L (98-107); Estimated Glomerular Filt Rate > 60; Glucose 99 mg/dL (65-110); Potassium 4.1 mmol/L (3.4-5.0); Sodium 130 mmol/L (137-145)
== END 2025-06-22 11:06 | disposition home or self-care (01) ==
PROVIDERS: PCP Nurse Practitioner Family; Referring Provider Specialist; Visit Provider Nurse Practitioner Family
DX: E87.1 Hypo-osmolality and hyponatremia (principal); R79.1 Abnormal coagulation profile; R53.81 Other malaise; E87.6 Hypokalemia
CPT/HCPCS: 36415; 80048; 85610

== ENCOUNTER 2025-07-05 15:31 | Outpatient (CLI) | payer MEDICARE, SELFPAY ==
--- OUTSIDE RECORDS SUMMARY | 2009-06-27 09:15 | XMS_ITS | Continuity of Care Document ---
Author Organization [facility] Address [address] [place] [address] [facility] [address] [place] [address] Phone Care Team Providers Care Mails Supervisor Name Role Phone Haris Hinojosa Unavailable Unavailable Procedures Procedure Date Eye Exam, New Patient Dilated Retinal Exam W Interpretation Se Refraction Advance Directives Directive Yes / No Effective Date File Name No Information Encounters Encounter Description Practice Location Reason(s) For Visit Diagnoses Date Provider Providers Copied on Encounter [facility], [address], [place], [place], [address], [place] tel:[phone] [facility] No Information 9-200 9 Micaela Carballo. [address] [facility] [address], [address], [place]. tel:[phone] Family History Family Member Type Diagnosis Age At Onset No Information Payers Payer name Insurance type Covered democrat ID Authoriza tion(s) Medicare [place] MB [id number] [place] Commercial BL [id number] Social History Type Description Quantity Date Captured [...]
--- OUTSIDE RECORDS SUMMARY | 2012-07-23 04:30 | XMS_ITS | Continuity of Care Document ---
Author Organization [facility] Address [address] [place] [address] Phone Care Team Providers Care Decision Science Analyst Name Role Phone Unavailable Unavailable Unavailable Allergies, Adverse Reactions, Alerts Substance Reaction Status Criticality naproxen Active No Information Procedures Procedure Date Asp/inject major joint or bursa 012 Kenalog Triamcinolone acetonide inj MRI upr extr joint, w/o contrast 2011 Office/outpatient visit,[facility] 2011 Advance Directives Directive Yes / [...] Date Provider Providers Copied on Encounter [facility], [address], [place], [place], [address], [place] tel:[phone] [facility] JOINT PAIN-SHLDER SHOULDER REGION DIS NECLOC PRIM OSTEOART-SH LDERROTATOR CUFF DIS NEC -201 2 No Information [facility], [address], [place], [place], [address], [place] tel:[phone] [facility] ROTATOR CUFF SYND NOSROTATOR CUFF DIS NECLOC PRIM OSTEOART-SH LDER Jun- 2 [facility]. [address], [place], [place], [address], [place]. tel:[phone] Office/outpat ient visit,[facility], [address], [place], [place], [address], tel:[phone] [facility] Office SHOULDER REGION DIS NECJOINT PAIN-SHLDER [...] Authoriza tion(s) Medicare [place] Part B [id number] [facility] [id number] Social History Type Description Quantity Date [...]
--- NOTE | ~2025-07-05 | CT_ITS ---
EXAMINATION:CT diagnostic chest wo con DATE: 07/05/2025 15:50 INDICATION: Abnormal findings on diagnostic imaging. Pulmonary nodule. TECHNIQUE: Computed tomography (CT) of the chest was performed without intravenous contrast. Automated exposure control and iterative reconstruction technique were employed. The dose-length product (DLP) was 144.19 mGy-cm. COMPARISON: CT abdomen and pelvis 03/16/2023, chest 2 views 06/08/2025 FINDINGS: There is chronic elevation of left hemidiaphragm. There is mild atelectasis bilaterally. A calcified right lung nodule and calcified right hilar lymph nodes are consistent with old granulomatous disease. No pleural effusion. Cardiomegaly is noted. There are coronary artery calcifications. No pericardial effusion. There are cysts in the kidneys measuring up to 4.7 cm on the right. There is a 7 mm hemorrhagic cyst in right kidney. There is bilateral gynecomastia. There is severe thoracic and lumbar spondylosis. There is mild chronic anterior wedging of multiple vertebral bodies. IMPRESSION: 1. No abnormal pulmonary nodule to correlate with the chest radiograph finding. Reviewed, dictated and finalized at location E.
--- OUTSIDE RECORDS SUMMARY | 2025-07-05 16:16 | XMS_ITS | Clinical Summary ---
Author Organization [facility] [address] Address [address] [place] [address] Care Team Providers Care Shoulder Joiner Name Role Phone Jolynn Greene NP Primary Care Provider [phone] Allergies Active Allergy Reactions Criticality Noted Date [...] Encounters Date Type Department Care Team Description 06/23/2025 Anticoagulation Visit [facility] Cardiology at [address] [place] [address] Itzel Fofana RN Atrial fibrillation (CMS/HCC) [I48.91] (Primary Dx); Paroxysmal atrial fibrillation (HCC) 06/23/2025 Telephone [facility] Cardiology [address] [place] [address] [address] [place] [address] Jaiden Pisano MD INR results 06/22/2025 10:00 AM CDT Office Visit [facility] Cardiology [address] [place] [address] [address] [place] [address] Arleth Franklin NP Vasovagal near syncope; Hyponatremia; Edema, lower extremity; Paroxysmal atrial fibrillation (HCC); Chronic anticoagulation; Hospital discharge follow-up 06/15/2025 Orders Only [facility] Health Information Management [address] [place] [address] Scanning, Provider 06/15/2025 Anticoagulation Visit [place] [address] [place] [address] Chelsie Briseno RN Atrial fibrillation ([facility]/HCC) [I48.91] (Primary Dx); Paroxysmal atrial fibrillation (HCC) 05/23/2025 Telephone [facility] Cardiology [address] [place] [address] [place] [address] Jaiden Pisano MD 05/10/2025 Anticoagulation Visit [facility] Cardiology at [address] [place] [address] Itzel Fofana RN Atrial fibrillation (CMS/HCC) [I48.91] (Primary Dx); Paroxysmal atrial fibrillation (HCC) 05/10/2025 Orders Only [facility] Cardiology [address] [place] [address] [place] [address] Jaiden Pisano MD 04/14/2025 Anticoagulation Visit [facility] Cardiology [address] [place] [address] [address] [place] [address] Itzel Fofana RN Atrial fibrillation (CMS/HCC) [I48.91] (Primary Dx); Paroxysmal atrial fibrillation (HCC) 04/14/2025 Orders Only [facility] Cardiology [address] [place] [address] [address] [place] [phone] Jaiden Pisano MD from Last 3 Months [...] on file 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 Gender Identity Not on file Sexual Orientation [...] Pneumococcal vaccine 65+ (2 of 2 - PPSV23, PCV20, or PCV21) 09/15/2019 07/21/2019, 07/09/2017 Influenza Vaccine (#1) 2025 , 06/12/2020, 07/07/2019, Additional history exists DTaP/Tdap/Td Vaccine (4 - Td or Tdap) 07/21/2029 07/21/2019, 02/12/2018, 02/11/2018 Zoster Vaccine Completed 12/22/2019, 12/17/2019 Procedures Procedure Name Priority Date/Time Associated Diagnosis Comments PROTIME-INR Routine 06/22/2025 SCAN - LABS 06/15/2025 PROTIME-INR Routine 06/15/2025 PROTIME-INR Routine 05/10/2025 7:10 AM CDT PROTIME-INR Routine 04/14/2025 7:08 AM CDT from Last 3 Months Results * (ABNORMAL) Protime-INR (06/22/2025) INR 2.20(A) 0.90 - 1.10 EXTERNAL LAB Blood Historical Provider LAB BLOOD ORDERABLES Mitzi l Result Performing Organization Address City/[facility]/ZIP Co de Phone Number EXTERNAL LAB * SCAN - LABS (06/15/2025) us Provider Scanning Edited Result - Final * (ABNORMAL) Protime-INR (06/15/2025) INR 1.50(A) 0.90 - 1.10 EXTERNAL INTERFACED LAB Blood Historical Provider MD LAB BLOOD ORDERABLES Mitzi l Result Performing Organization Address City/[facility] Co de Phone Number EXTERNAL INTERFACED LAB [address] [place] [address] * (ABNORMAL) Protime-INR (05/10/2025 7:10 AM CDT) INR 2.6(H) [facility] Comment: Reference Range 0.9-1.1 Moderate-intensity Warfarin Therapy 2.0-3.0 Higher-intensity Warfarin Therapy 3.0-4.0 PT 26.6(H) 9.0 - 11.5 sec [facility] Comment: For additional information, please refer to http://education.IFCO Systems/faq/BEK029 (This link is being provided for informational/ educational purposes only.) 05/10/2025 7:10 AM CDT 05/10/2025 7:11 AM CDT Jaiden Pisano MD LAB BLOOD ORDERABLES Fin al Result Performing Organization Address [facility] Co de Phone Number [facility] [address] [place] [address] * (ABNORMAL) Protime-INR (04/14/2025 7:08 AM CDT) INR 2.1(H) [facility] Comment: Reference Range 0.9-1.1 Moderate-intensity Warfarin Therapy 2.0-3.0 Higher-intensity Warfarin Therapy 3.0-4.0 PT 21.6(H) 9.0 - 11.5 sec [facility] Comment: For additional information, please refer to http://Sword.com.IFCO Systems/faq/ARG300 (This link is being provided for informational/ educational purposes only.) 04/14/2025 7:08 AM CDT 04/14/2025 7:09 AM CDT Jaiden Pisano MD LAB BLOOD ORDERABLES Fin al Result Performing Organization Address [facility] de Phone Number [facility] [address] [place] [address] from Last 3 Months Insurance MEDICARE [facility] Address: [address] [address] MEDICARE [facility] MEDICARE SUPPLEMENT Care Teams Shoulder Joiner Relationship Specialty Start Date End Date Jolynn Greene NP [address] [address] PCP - General Family Medicine 06/22/25
--- OUTSIDE RECORDS SUMMARY | 2025-07-05 16:16 | XMS_ITS | Encounter Summary ---
Author Organization [facility] Healthcare Address [address] [place] [address] Care Team Providers Care Glaze Carrier Name Role Phone Alexander Fraire MD Primary Care Provider [phone] Santos Alanis MD, Hector Nam Primary Care Provider Willian Elise MD Primary Care Provider [phone] Jolynn Greene NP Primary Care Provider [phone] Encounter Details Date Type Department Care Team (Late st Contact Info) Description 12/18/2017 Orders Only [facility] Health Information Management [address] [place] [address] Scanning, Provider Social History Tobacco Use Types Packs/Day Years Used Date Smoking Tobacco: Never Smokeless Tobacco: Former Alcohol Use Standard Drinks/Week Comments No 0 (1 standard drink = 0.6 oz pur e alcohol) Sex and Gender Information Value Date Recorded Sex Assigned at Not on file 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
--- OUTSIDE RECORDS SUMMARY | 2025-07-05 16:16 | XMS_ITS | Encounter Summary ---
Author Organization [facility] Address [address] [place] [address] Phone Care Team Providers Care Produce Specialist Name Role Phone Santos Alanis MD, Hector Nam Primary Care Provider Willian Elise MD Primary Care Provider [phone] Jolynn Greene NP Primary Care Provider [phone] Encounter Details Date Type Department Care Team (Late st Contact Info) Description 08/23/2018 Telephone [facility] Cardiology [address] [facility] Advanced Medicine 8th [place] [address] [place] [address] Rachelle Ludwig, MPH Social History Tobacco Use Types Packs/Day Years Used Date Smoking Tobacco: Never Smokeless Tobacco: Former Alcohol Use Standard Drinks/Week Comments No 0 (1 standard drink = 0.6 oz pur e alcohol) Sex and Gender Information Value Date Recorded Sex Assigned at Not on file 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 Gender Identity Not on file Sexual Orientation Not on file documented as of this encounter Plan of Treatment Not on file documented as of this encounter Visit Diagnoses Not on filedocumented in this encounter Care Teams Produce Specialist Relationship Specialty Start Date End Date Hector Graham Jr., MD [address] [place] [address] PCP - General Geriatric Medicine 06/17/18 05/27/21 Willian Elise MD [address] [facility] [address] [place] [address] PCP - General Family Medicine 05/28/21 06/21/25 Jolynn Greene NP [address] [employer] [address] [place] [address] PCP - General Family Medicine 06/22/25 documented as of this encounter
--- OUTSIDE RECORDS SUMMARY | 2025-07-05 16:16 | XMS_ITS | Encounter Summary ---
Author Organization [facility] Healthcare Address [address] [place] [address] Care Team Providers Care Adjunct Professor Of U.[place]. History Name Role Phone Willian Elise MD Primary Care Provider [phone] Jolynn Greene NP Primary Care Provider [phone] Encounter Details Date Type Department Care Team (Late st Contact Info) Description 06/15/2025 Orders Only [facility] Health Information Management [address] [place] [address] Scanning, Provider Social History Tobacco Use Types Packs/Day Years Used Date Smoking Tobacco: Never Smokeless Tobacco: Current Chew Alcohol Use Standard Drinks/Week Comments No 0 (1 standard drink = 0.6 oz pur e alcohol) Sex and Gender Information Value Date Recorded Sex Assigned at Not on file 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 History Relationship Specialty Start Date End Date Willian Elise MD [address] [address] PCP - General Family Medicine 05/28/21 06/21/25 Jolynn Greene NP [address] [address] PCP - General Family Medicine 06/22/25 documented as of this encounter
--- OUTSIDE RECORDS SUMMARY | 2025-07-05 16:16 | XMS_ITS | Clinical Summary ---
Author Organization [facility] Address [address] [place] [address] Care Team Providers Care Citizenship Teacher Name Role Phone Hector Graham MD [...] 07/07 Cervical disc disease 06/13/2019 Atrial fibrillation ([facility]) 05/07/2017 Paroxysmal atrial fibrillation ([facility]) 05/07/2017 Immunizations Immunization Administration Dates Next [...] Counseling Given: Yes Comments:1/2 pouch/day PCP to debt and budget counselor Alcohol Use Standard Drinks/Week Comments Not [...] age to complete this topic Insurance MEDICARE [facility] Care Teams Citizenship Teacher Relationship Specialty Start Date End Date Hector Graham MD PCP - General INTERNAL MEDICINE 05/16/19
--- OUTSIDE RECORDS SUMMARY | 2025-07-05 16:16 | XMS_ITS | Clinical Summary ---
Author Organization [employer] [address] [facility] Address [address] [place] [address] Care Team Providers Care Prosthetics Assistant Name Role Phone Hector Graham MD Primary Care Provider [phone] Allergies Active Allergy Reactions Criticality Noted Date [...] A AND B BCBS SUPP Care Teams Prosthetics Assistant Relationship Specialty Start Date End Date Hector Graham MD [address] [place] [address] PCP - General Internal Medicine 06/13/19
== END 2025-07-05 15:32 | disposition home or self-care (01) ==
PROVIDERS: PCP Nurse Practitioner Family; Visit Provider Nurse Practitioner Family
DX: R93.89 Abnormal findings on diagnostic imaging of other specified body structures (principal)
CPT/HCPCS: 71250

== ENCOUNTER 2025-08-29 08:20 | Inpatient (IN) | payer MEDICARE, SELFPAY ==
--- OUTSIDE RECORDS SUMMARY | 2009-06-27 08:15 | XMS_ITS | Continuity of Care Document ---
Author Organization [facility] Address [address] [place] [address] [facility] [address] [place] [address] Phone Care Team Providers Care Vegetable Thinner Name Role Phone Haris Hinojosa Unavailable Unavailable Procedures Procedure Date Eye Exam, New Patient Dilated Retinal Exam W Interpretation Se Refraction Advance Directives Directive Yes / No Effective Date File Name No Information Encounters Encounter Description Practice Location Reason(s) For Visit Diagnoses Date Provider Providers Copied on Encounter [facility], [address], [place], [place], [address], [place] tel:[phone] [facility] No Information 9-200 9 Micaela Carballo. [address] [facility] [address], [address], [place]. tel:[phone] Family History Family Member Type Diagnosis Age At Onset No Information Payers Payer name Insurance type Covered constitution party ID Authoriza tion(s) [place] MB [id number] [place] Commercial BL [id number] Social History Type Description Quantity Date Captured Comments Sex Male Smoking Status No Information Chief Complaint And Reason For Visit No Information Reason For Referral Reason For Referral No Information History Of Present Illness Encounter Date Complaint History Of Prese nt Illness No Information Functional Status Date Functional Assessmen t No Information Instructions Date Instruction Additional Infor mation No Information Assessments Type Assessment Date No Information Patient Care Teams Name Effective Dates (start - stop) Status Members No Information
--- OUTSIDE RECORDS SUMMARY | 2009-06-27 08:15 | XMS_ITS | Continuity of Care Document ---
Author Organization [facility] Address [address] [place] [address] [facility] [address] [place] [address] Phone Care Team Providers Care Epic Specialist Name Role Phone Haris Hinojosa Unavailable Unavailable Procedures Procedure Date Eye Exam, New Patient Dilated Retinal Exam W Interpretation Se Refraction Advance Directives Directive Yes / No Effective Date File Name No Information Encounters Encounter Description Practice Location Reason(s) For Visit Diagnoses Date Provider Providers Copied on Encounter [facility], [address], [place], [place], [address], [place] tel:[phone] [facility] No Information 9-200 9 Micaela Carballo. 24[address] [email or web address] [facility] [address], [address], [place]. tel:[phone] Family History Family Member Type Diagnosis Age At Onset No Information Payers Payer name Insurance type Covered democrat ID Authoriza tion(s) [place] MB [id number] [place] Commercial [place] [id number] Social History Type Description Quantity Date Captured [...]
--- OUTSIDE RECORDS SUMMARY | 2012-07-23 03:30 | XMS_ITS | Continuity of Care Document ---
Author Organization [facility] Address [address] [place] [address] Phone Care Team Providers Care Order Picker/Assembler Name Role Phone Unavailable Unavailable Unavailable Allergies, Adverse Reactions, Alerts Substance Reaction Status Criticality naproxen Active No Information Procedures Procedure Date Asp/inject major joint or bursa 012 Kenalog Triamcinolone acetonide inj MRI upr extr joint, w/o contrast 2011 Office/outpatient visit,[facility] 2011 Advance Directives Directive Yes / No Effective Date File Name Resuscitation Not Answered N/A N/A Life Support Not Answered N/A N/A Intubation Not Answered N/A N/A Antibiotics Not Answered N/A N/A IV Fluid Support Not Answered N/A N/A Tube Feed Not Answered N/A N/A Other Directive N/A N/A WARNING:The information contained in this section is historical and is provided for information only and does not constitute a legal document or any assurance that the information is still accurate. Please verify the information with the braden of the legal document before using it for clinical purposes. Encounters Encounter Description Practice Location Reason(s) For Visit Diagnoses Date Provider Providers Copied on Encounter [facility], [address], [place], [place], [address], [place] tel:[phone] [facility] JOINT PAIN-SHLDER SHOULDER REGION DIS NECLOC PRIM OSTEOART-SH LDERROTATOR CUFF DIS NEC -201 2 No Information [facility], [address], [place], [place], [address], [place] tel:[phone] [facility] ROTATOR CUFF SYND NOSROTATOR CUFF DIS NECLOC PRIM OSTEOART-SH LDER Jun- 2 [facility]. [address], [place], [place], [address], [place]. tel:[phone] Office/outpat ient visit,[facility], [address], [place], [place], [address], tel:[phone] [facility] Office SHOULDER REGION DIS NECJOINT PAIN-SHLDER Jun- 2 No Information Family History Family Member Type Diagnosis Age At Onset No Information Immunizations Vaccine Date Status Comments Flu (split) (3 yrs or older) administered Source: New Immunization Record pneumo (2 yrs or older) (PPV23) administered Source: New Immuniza tion Record Payers Payer name Insurance type Covered libertarian ID Authoriza tion(s) Medicare [place] Part B [id number] [facility] [id number] Social History Type Description Quantity Date Captured Comments Alcohol Use Details Unknown Caffeine Use Details Unknown Tobacco Use Status No Information Smoking Status Unknown if ever smoked 14 Sex Male Chief Complaint And Reason For Visit No [...]
--- OUTSIDE RECORDS SUMMARY | 2012-07-23 03:30 | XMS_ITS | Continuity of Care Document ---
Author Organization [facility] Address [address] [place] [address] Phone Care Team Providers Care Financial Services Assistant Name Role Phone Unavailable Unavailable Unavailable Allergies, Adverse Reactions, Alerts Substance Reaction Status Criticality naproxen Active No Information Procedures Procedure Date Asp/inject major joint or bursa 012 Kenalog Triamcinolone acetonide inj MRI upr extr joint, w/o contrast 2011 Office/outpatient visit,[facility] 2011 Advance Directives Directive Yes / [...] Date Provider Providers Copied on Encounter [facility], [address], [place], [place], [address], [place] tel:[phone] [facility] JOINT PAIN-SHLDER SHOULDER REGION DIS NECLOC PRIM OSTEOART-SH LDERROTATOR CUFF DIS NEC -201 2 No Information [facility], [address], [place], [place], [address], [place] tel:[phone] [facility] ROTATOR CUFF SYND NOSROTATOR CUFF DIS NECLOC PRIM OSTEOART-SH LDER Jun- 2 [facility]. [address], [place], [place], [address], [place]. tel:[phone] Office/outpat ient visit,[facility], [address], [place], [place], [address], tel:[phone] [facility] Office SHOULDER REGION DIS [...] Authoriza tion(s) Medicare [place] Part B [id number] [facility] [id number] Social History Type Description Quantity Date [...]
[2025-08-29] VITALS (7 sets, daily range): BP systolic 106–166; BP diastolic 54–93; PULSE 58–64; RESP 12–20; TEMP 36.4–36.6; O2SAT 97–100
--- NOTE | ~2025-08-29 | XR_ITS ---
EXAMINATION: X-ray surgery ortho no charge INDICATION: ORIF. COMPARISON: August 29 TECHNIQUE: 4 fluoroscopic images of the left hip were obtained during ORIF for intratrochanteric fracture. Fluoroscopy exposure time was 180 seconds. Air Kerma 80.886 mGy. DAP 16.035 mGym2. FINDINGS/IMPRESSION: No radiologist was present or involved at the time of the procedure. Static images were submitted for interpretation. Images demonstrate placement of orthopedic hardware through the fracture in the left proximal femur. Fluoroscopic documentation of ORIF. Please refer to the operative note for complete procedural details Reviewed, dictated and finalized at location A. RCEMENT SAFETY OFFICER
--- NOTE | ~2025-08-29 | XR_ITS ---
EXAMINATION: XR hip LT 2V w AP pelvis, 08/29/2025 9:50 TIRE MOLD TESTER HISTORY: fall, pain COMPARISON: No comparisons available. Findings: There is a displaced comminuted left intertrochanteric fracture with angulation. Severe degenerative changes. Soft tissues unremarkable. Impression: Fracture detailed above Reviewed, dictated and finalized at location P. MOLD TESTER Impression: Fracture detailed above
--- NOTE | ~2025-08-29 | XR_ITS ---
EXAMINATION: XR chest 1V, 08/29/2025 9:50 CLINICAL SERVICES ASSISTANT HISTORY: fall, hip pain COMPARISON: No comparisons available. Technique: Single view. Findings: There are COPD changes in the lungs with left basilar linear atelectasis. No pneumothorax. Moderate cardiomegaly. Mediastinal and hilar contours are within normal limits. Bony thorax no acute abnormality. Left central line terminates in the SVC. Impression: No acute cardiopulmonary abnormality. Reviewed, dictated and finalized at location P. ICAL SERVICES ASSISTANT Impression: No acute cardiopulmonary abnormality.
--- NOTE | ~2025-08-29 | XR_ITS ---
Examination: XR abdomen/kub 1V Clinical History: constipation, r/o impaction vs obstruction Comparison: No recent comparison Technique: 2 views portable supine AP abdomen Findings: Air-fluid levels cannot be assessed on supine projection. Scattered colonic gas and stool. Scattered small bowel gas. No abnormal abdominal calcifications. No acute bony abnormality. IMPRESSION: 1. No acute abnormality identified on supine exam. Reviewed, dictated and finalized at location R. LITIES LOCATOR
--- NOTE | 2025-08-29 08:45 | ED.FALL ---
HPI - Fall General Chief Complaint: Fall Stated Complaint: fall, hip pain Time Seen by Provider: 08/29/25 08:22 History of Present Illness HPI Narrative: Pt lost balance and fell and landed on left hip. Pt has history of vasovagal hypotension. Pt on coumadin for a fib. Pt did not lose counsiousness. Pt complains of left hip pain. Related Data Home Medications ?Medication ?Instructions ?Recorded ?Confirmed ?Last Taken ?Type latanoprost 0.005 % eye drops 1 drop ophthalmic (eye) HS 03/28/20 08/29/25 05/19/23 21:00 History B-complex with vitamin C 1 tablet PO HS 05/09/20 08/29/25 05/19/23 21:00 History amiodarone 200 mg tablet 200 mg PO DAILY 05/09/20 08/29/25 05/20/23 08:00 History ascorbic acid (vitamin C) 1,000 mg 1 g PO HS 05/09/20 08/29/25 05/19/23 21:00 History tablet cholecalciferol (vitamin D3) 75 75 mcg PO DAILY 05/07/21 08/29/25 05/20/23 08:00 History mcg (3,000 unit) tablet warfarin 5 mg tablet 5 mg PO DAILY 04/06/25 08/29/25 08/28/25 History fexofenadine 180 mg tablet 180 mg PO DAILY 06/08/25 08/29/25 Unknown History (Kat Allergy) telmisartan 40 mg tablet 40 mg PO HS 06/08/25 08/29/25 Unknown History dorzolamide 22.3 mg-timolol 6.8 1 drp EACH EYE Q12H 08/29/25 08/29/25 08/28/25 History mg/mL eye drops furosemide 20 mg tablet 20 mg PO .COMPLEX 08/29/25 08/29/25 08/28/25 History vit C 250 mg-vit E 90 mg-zinc 40 1 tablet PO BID 08/29/25 08/29/25 Unknown History mg-copper 1 [id number] capsule (PreserVision AREDS-2) Allergies Allergy/AdvReac Type Severity Reaction Status Date / Time naproxen Allergy Severe SWELLING/SO Verified 08/29/25 16:26 B Review of Systems Review of Systems: All systems reviewed & are unremarkable except as noted in HPI and below [facility] Past Medical History Medical History (Updated 08/29/25 @ 12:37 by Sridevi Pearson APRN) Abnormal chest xray Anxiety Right knee pain Abnormal urine BMI 30.0-30.9,adult BMI 31.0-31.9,adult Hypertension Pneumonia Constipation Spondylosis of lumbar spine Pancreatic lesion BMI 32.0-32.9,adult Anemia Acute respiratory failure with hypoxia Pneumonia due to COVID-19 virus Edema, lower extremity Encounter to establish care Arthritis Seasonal allergies Cervical vertebral fusion Glaucoma Cataract Hearing loss Headache Hyponatremia Neck pain, acute Unspecified fall, initial encounter Routine eye exam Eye exam normal Chronic atrial fibrillation Chronic diastolic (congestive) heart failure Essential tremor Mixed hyperlipidemia Type 2 diabetes mellitus without complication, without long-term current use of insulin Family History Family History Father Cerebrovascular accident Sibling Asthma Other Diabetes mellitus Family history of arthritis Hypertension Social History Social History Social History: patient is a nonsmoker and never has smoked. He does not use alcohol or drugs. 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 His power of attorney general is Jia Leon, daughter. He would like to be a full code Smoking status: Never smoker Tobacco type: smokeless tobacco Smokeless tobacco user: chewing tobacco Second hand tobacco smoke exposure: No Alcohol intake: never Substance use: never Substance use type: does not use Lack of Transportation: No Lack of Food: Never True Current Housing: I Have Housing Concerned About Future Housing: No Difficulty Paying Gas/Electric Bills: No Difficulty Paying for Meds: No Currently Unemployed: No Education: High School Diploma/GED Difficulty w/ Childcare or Family Care: No Living arrangements: with family Occupation/Education: retired Gender identity (if verbalized by the patient): Male Sexual Orientation (if Verbalized by the Patient): Straight or Heterosexual Spiritual care concerns: No Agree to blood products: Yes Exam Const: General: healthy appearing and no acute distress Nutritional Appearance: well nourished Orientation/consciousness: patient oriented x3 Limitations: no limitations Eyes: Conjunctivae: conjunctivae normal Pupils: Equal, round and reactive pupils present EOM: EOMs intact bilaterally Neck: Neck: normal visual inspection and no lymphadenopathy Chest: Chest palpation & inspection: normal inspection of the chest Resp: Effort & Inspection: normal respiratory effort Auscultation: clear to auscultation bilaterally Cardio: Rate: regular rate Rhythm: regular rhythm GI: GI Palp: Yes Soft to palpation and Yes Tenderness to palpation present (GI) Back/Spine/Pelvis: Back: no CVA tenderness Skin: General skin exam: normal color Neuro: General: patient oriented x3, moves all extremities, no meningeal signs, no focal motor deficits and CN's II-XI intact bilaterally Cranial nerves: Yes Nystagmus not present Speech: normal speech Extrem: Other: no shortening but tender to palpation Psych: Mental Status: mental status grossly normal Affect: normal affect Attitude: cooperative Course Vital Signs Vital signs: Vital Signs Temperature 97.6 F 08/29/25 08:24 Pulse Rate 64 08/29/25 08:24 Respiratory Rate 13 08/29/25 08:24 Blood Pressure 166/54 H 08/29/25 08:24 Pulse Oximetry 97 08/29/25 08:24 Oxygen Delivery Room Air 08/29/25 08:24 Temperature 97.6 F 08/29/25 08:24 Pulse Rate 64 08/29/25 14:18 Respiratory Rate 20 08/29/25 14:18 Blood Pressure 146/65 H 08/29/25 14:18 Pulse Oximetry 98 08/29/25 14:18 Oxygen Delivery Room Air 08/29/25 08:24 MDM - Fall MDM Narrative Medical decision making narrative: DDx includes fx or dislocation vs contusion. will check labs and get x ray and treat pain. Pt has intertrochanteric left hip fx. Dr Dexter is in OR but discussed with Dr Reese who said could consult Dr Dexter. Discussed with Ruddy Mcnair and agrees to admit. Lab Data 08/29/25 09:16 08/29/25 09:16 Labs: Lab Results 08/29/25 Range/Units 09:16 WBC 5.6 (4.5-10.0) K/mm3 RBC 4.26 L (4.6-6.20) M/mm3 Hgb 13.9 L (14.0-18.0) g/dL Hct 41.4 L (42.0-52.0) % MCV 97.2 (80-100) fl MCH 32.6 (26-34) pg MCHC 33.6 (32-36) g/dl RDW 13.2 (11.5-14.5) % Plt Count 171 (150-375) k/mm3 MPV 9.7 (7.4-10.4) fl Immature Gran % (Auto) 0.4 (0-0.5) % Neut % (Auto) 72.5 (45.5-73.1) % Lymph % (Auto) 19.2 (18.3-44.2) % [place] % (Auto) 6.1 (2.6-8.5) % Eos % (Auto) 1.4 (0-4.4) % Baso % (Auto) 0.4 (0.2-1.2) % Lymph # (Auto) 1.07 (0.9-3.2) K/mm3 [place] # (Auto) 0.3 (0.1-0.6) K/mm3 Eos # (Auto) 0.1 (0-0.3) K/mm3 Baso # (Auto) 0.0 (0.0-0.1) K/mm3 Abs Immat Gran (auto) 0.02 (0.00-0.031) K/mm3 Absolute Neuts (auto) 4.0 (1.3-6.7) K/mm3 Absolute Nucleated RBC 0.000 (0.0-0.012) K/mm3 Nucleated RBC % 0.0 (0.0-0.2) % PT 23.0 H (11.1-14.7) Seconds INR 2.1 APTT 33.0 (22.3-36.8) Seconds Sodium 130 L (137-145) mmol/L Potassium 4.5 (3.4-5.0) mmol/L Chloride 99 (98-107) mmol/L Carbon Dioxide 26 (22-30) mmol/L Anion Gap 5 (4-12) mmol/L BUN 15 (9-20) mg/dL Creatinine 0.92 (0.7-1.3) mg/dL Estim Creat Clear Calc 59 ml/min Estimated GFR > 60 (59 - ) Glucose 120 H (65-110) mg/dL Calcium 8.2 L (8.4-10.2) mg/dL Total Bilirubin 0.5 (0.2-1.3) mg/dL AST 31 (17-59) U/L ALT 16 (6-50) U/L Alkaline Phosphatase 84 (38-126) U/L Total Protein 6.8 (6.3-8.2) g/dL Albumin 3.9 (3.5-5.1) g/dL Discharge Plan Discharge Clinical Impression: Closed fracture of left hip Patient Disposition: Still a Patient Condition: Stable
--- NOTE | 2025-08-29 08:50 | ECG_ITS ---
Test Date: 2025-08-29 09:02:01 Measurements Intervals [place] Rate: 51 P: 4 [place]: 190 QRS: 34 QRSD: 96 T: 61 QT: 447 QTc: 413 Interpretive Statements SINUS BRADYCARDIA LOW QRS VOLTAGE IN EXTREMITY LEADS [QRS DEFLECTION < 0.5 mV IN LIMB LEADS] Electronically Signed On 08-29-2025 18:04:46 MOTION PICTURE PRINTER by Sallie Marroquin M.D.
[2025-08-29] MEDS: ONDANSETRON INJ 4 MG/2 ML VIAL IV PUSH (09:19)
[2025-08-29] MEDS: MORPHINE SULFATE (*CRX) 4 MG/ML INJ IV PUSH (09:20)
[2025-08-29 09:24] LABS: Hematocrit 41.4 % (42.0-52.0); Hemoglobin 13.9 g/dL (14.0-18.0); Immature Granulocyte Percent A 0.4 % (0-0.5); Lymphocytes Absolute Auto 1.07 K/mm3 (0.9-3.2); Mean Corpuscular HGB Conc 33.6 g/dl (32-36); Mean Corpuscular Hemoglobin 32.6 pg (26-34); Mean Corpuscular Volume 97.2 fl (80-100); Nucleated Red Blood Cells Absolute Auto 0.000 K/mm3 (0.0-0.012); Nucleated Red Blood Cells Perc 0.0 % (0.0-0.2); Platelet Count Result 171 k/mm3 (150-375); Red Blood Count 4.26 M/mm3 (4.6-6.20); White Blood Count 5.6 K/mm3 (4.5-10.0)
--- OUTSIDE RECORDS SUMMARY | 2025-08-29 09:29 | XMS_ITS | Encounter Summary ---
Author Organization [facility] Healthcare Address [address] [place] [address] Care Team Providers Care Coal Digger Name Role Phone Alexander Fraire MD Primary Care Provider [phone] Santos Alanis MD, Hector Nam Primary Care Provider Willian Elise MD Primary Care Provider [phone] Jolynn Greene NP Primary Care Provider [phone] Encounter Details Date Type Department Care Team (Late st Contact Info) Description 12/18/2017 Orders Only [facility] Health Information Management [address] [place] [address] Scanning, Provider Social History Tobacco Use Types Packs/Day Years Used Date Smoking Tobacco: Never Smokeless Tobacco: Former Alcohol Use Standard Drinks/Week Comments No 0 (1 standard drink = 0.6 oz pur e alcohol) Sex and Gender Information Value Date Recorded Sex Assigned at Not on file 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 Gender Identity Not on file Sexual Orientation [...] on filedocumented in this encounter Care Teams Coal Digger Relationship Specialty Start Date End Date Alexander Fraire MD PCP - General 01/16/17 06/16/18 Hector Graham Jr., MD [address] [place] [address] PCP - General Geriatric Medicine 06/17/18 05/27/21 Willian Elise MD [address] [place] [place] [address] PCP - General Family Medicine 05/28/21 06/21/25 Jolynn Greene NP [address] [place] [address] PCP - General Family Medicine 06/22/25 documented as of this encounter
--- OUTSIDE RECORDS SUMMARY | 2025-08-29 09:29 | XMS_ITS | Clinical Summary ---
Author Organization [facility] [address] Address [address] [place] [address] Care Team Providers Care Application Support Developer Name Role Phone Jolynn Greene NP Primary Care Provider [phone] Allergies Active Allergy Reactions Criticality Noted Date [...] DAY 90 tablet 2 04/11/20 25 Active busPIRone (BUSPAR) 5 mg tablet Take 1 tablet (5 mg total) by mouth daily Increase to 1 tablet twice a day after day 3 06/20/20 25 Active furosemide (LASIX) 20 mg tabletIndicatio ns:Edema, lower extremity Take 1 tablet (20 mg total) by mouth 3 (three) times a week Mon, Wed, Fri 06/23/20 25 Active warfarin (COUMADIN) 5 mg tablet TAKE ONE TAB (5 MG) 5 DAYS A WEEK (SUN, MON, WED, FRI, SAT) & 1&1/2 TABS (7.5 MG) ON TUES, TH OR DIRA 135 tablet 08/14/20 25 Active warfarin (COUMADIN) 5 mg tablet 1 TAB (5 MG) 5 DAYS A WEEK (SUN, MON, WED, FRI, SAT) & 1&1/2 TABS (7.5 MG) ON TU, TH OR DIR 135 tablet 05/18/20 25 025 Discontinued Active Problems Problem Noted Date Diagnosed Date Atrial fibrillation (CMS/HCC) [I48.91] 7 Paroxysmal atrial fibrillation 05/07/2017 Encounters Date Type Department Care Team Description 08/21/2025 Anticoagulation Visit [facility] [address] [place] [address] [place] [phone] Ya Rocha RN Atrial fibrillation (CMS/HCC) [I48.91] (Primary Dx); Paroxysmal atrial fibrillation (HCC) 08/18/2025 Orders Only [facility] [address] [place] [address] [address] [place] [address] Jaiden Pisano MD 08/04/2025 Anticoagulation Visit [facility] [address] [facility] [address], [place] [address] Catrachita Sheikh RN Atrial fibrillation ([facility]/HCC) [I48.91] (Primary Dx); Paroxysmal atrial fibrillation (HCC) 08/03/2025 Orders Only [facility] [address] [place] [address] [address] [place] [phone] Jaiden Pisano MD 07/20/2025 Anticoagulation Visit [facility] [address] [place] [address] [address] [place] [phone] Ya Rocha RN Atrial fibrillation ([facility]/HCC) [I48.91] (Primary Dx); Paroxysmal atrial fibrillation (HCC) 07/20/2025 Orders Only [facility] [address] [place] [address] [place] [phone] Jaiden Pisano MD 07/20/2025 Telephone [facility] [address] [place] [address] [place] [phone] Jaiden Pisano MD INR order 06/23/2025 Anticoagulation Visit [facility] at [address] [place] [address] Itzel Fofana RN Atrial fibrillation ([facility]/HCC) [I48.91] (Primary Dx); Paroxysmal atrial fibrillation (HCC) 06/23/2025 Telephone [facility] [address] [place] [address] [address] [place] [phone] Jaiden Pisano MD INR results 06/22/2025 10:00 AM CDT Office Visit [facility] [address] [place] [address] [address] [place] [phone] Arleth Franklin NP Vasovagal near syncope; Hyponatremia; Edema, lower extremity; Paroxysmal atrial fibrillation (HCC); Chronic anticoagulation; Hospital discharge follow-up 06/15/2025 Orders Only [facility] Health Information Management [address] [place] [address] Scanning, Provider 06/15/2025 Anticoagulation Visit [facility] [address] [place] [address] Chelsie Briseno RN Atrial fibrillation (CMS/HCC) [I48.91] [...] on file 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 Gender Identity Not on file Sexual [...] 09/15/2019 07/21/2019, 07/09/2017 Influenza Vaccine (#1) 2025 4, 06/12/2020, 07/07/2019, Additional history exists DTaP/Tdap/Td Vaccine (4 - Td or Tdap) 07/21/2029 07/21/2019, 02/12/2018, 02/11/2018 Zoster Vaccine Completed 12/22/2019, 12/17/2019 Procedures Procedure Name Priority Date/Time Associated Diagnosis Comments PROTIME-INR Routine 08/18/2025 12:37 PM CDT PROTIME-INR Routine 08/03/2025 9:02 AM CDT PROTIME-INR Routine 07/20/2025 9:41 AM CDT PROTIME-INR Routine 06/22/2025 SCAN - LABS 06/15/2025 PROTIME-INR Routine 06/15/2025 from Last 3 Months Results * (ABNORMAL) Protime-INR (08/18/2025 12:37 PM CDT) INR 1.8(H) [employer]ecelia Ponce Comment: Reference Range 0.9-1.1 Moderate-intensity Warfarin Therapy 2.0-3.0 Higher-intensity Warfarin Therapy 3.0-4.0 PT 18.5(H) 9.0 - 11.5 sec [employer]ecelia Ponce Comment: For additional information, please refer to http://education.TicketLabs/faq/QUK459 (This link is being provided for informational/ educational purposes only.) 08/18/2025 12:3 7 PM CDT 08/18/2025 12:37 PM CDT us Jaiden Pisano MD LAB BLOOD ORDERABLES Fin al Result [employer]ellation PharmaceuticalsChris Ponce [address] [place] [address] * (ABNORMAL) Protime-INR (08/03/2025 9:02 AM CDT) INR 1.7(H) Rebeca [employer]ote[employer]ologiesCecelia Ponce Comment: Reference Range 0.9-1.1 Moderate-intensity Warfarin Therapy 2.0-3.0 Higher-intensity Warfarin Therapy 3.0-4.0 PT 17.7(H) 9.0 - 11.5 sec [facility] Comment: For additional information, please refer to http://CreaWor.TicketLabs/faq/BYF250 (This link is being provided for informational/ educational purposes only.) 08/03/2025 9:02 AM CDT 08/03/2025 9:02 AM CDT Jaiden Pisano MD LAB BLOOD ORDERABLES Fin al Result Performing Organization Address [facility] Co de Phone Number [facility] [address] [place] [address] * (ABNORMAL) Protime-INR (07/20/2025 9:41 AM CDT) INR 1.6(H) [facility] Comment: Reference Range 0.9-1.1 Moderate-intensity Warfarin Therapy 2.0-3.0 Higher-intensity Warfarin Therapy 3.0-4.0 PT 16.1(H) 9.0 - 11.5 sec [facility] Comment: For additional information, please refer to http://CreaWor.TicketLabs/faq/KAG389 (This link is being provided for informational/ educational purposes only.) 07/20/2025 9:41 AM CDT 07/20/2025 9:41 AM CDT Jaiden Pisano MD LAB BLOOD ORDERABLES Fin al Result Performing Organization Address [facility] Co de Phone Number [facility] [address] [place] [address] * (ABNORMAL) Protime-INR (06/22/2025) INR 2.20(A) 0.90 - 1.10 EXTERNAL LAB Blood us Historical Provider LAB BLOOD ORDERABLES Mitzi l Result EXTERNAL LAB * SCAN - LABS (06/15/2025) us Provider Scanning Edited Result - Final * (ABNORMAL) Protime-INR (06/15/2025) INR 1.50(A) 0.90 - 1.10 EXTERNAL INTERFACED LAB Blood us Historical Provider LAB BLOOD ORDERABLES Mitzi l Result EXTERNAL INTERFACED LAB [address] [place] [address] from Last 3 Months Insurance MEDICARE MEDICARE [facility] MEDICARE SUPPLEMENT Care Teams Application Support Developer Relationship Specialty Start Date End Date Jolynn Greene NP [address] [address] PCP - General Family Medicine 06/22/25
--- OUTSIDE RECORDS SUMMARY | 2025-08-29 09:29 | XMS_ITS | Encounter Summary ---
Author Organization [facility] Healthcare Address [address] [place] [address] Care Team Providers Care Sales Systems Engineer Name Role Phone Willian Elise MD Primary Care Provider [phone] Jolynn Greene NP Primary Care Provider [phone] Encounter Details Date Type Department Care Team (Late st Contact Info) Description 06/15/2025 Orders Only [facility] Health Information Management [address] [place] [address] Scanning, Provider Social History Tobacco Use Types Packs/Day Years Used Date Smoking Tobacco: Never Smokeless Tobacco: Current Chew Alcohol Use Standard Drinks/Week Comments No 0 (1 standard drink = 0.6 oz pur e alcohol) Sex and Gender Information Value Date Recorded Sex Assigned at Not on file 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
--- OUTSIDE RECORDS SUMMARY | 2025-08-29 09:29 | XMS_ITS | Clinical Summary ---
Author Organization [employer] [facility] [facility] Address [address] [place] [address] Care Team Providers Care Outpatient Pharmacy Manager Name Role Phone Hector Graham MD Primary Care Provider [phone] Allergies Active Allergy Reactions Criticality Noted Date [...] A AND B BCBS SUPP Care Teams Outpatient Pharmacy Manager Relationship Specialty Start Date End Date Hector Graham MD [address] [place] [address] PCP - General Internal Medicine 06/13/19
--- OUTSIDE RECORDS SUMMARY | 2025-08-29 09:29 | XMS_ITS | Clinical Summary ---
Author Organization [facility] Address [address] [place] [address] Care Team Providers Care Telegraph Repeater Installer Name Role Phone Hector Graham MD Primary [...] 07/07 Cervical disc disease 06/13/2019 Atrial fibrillation 05/07/2017 Paroxysmal atrial fibrillation 05/07/2017 Immunizations Immunization Administration Dates Next Due [...] Counseling Given: Yes Comments:1/2 pouch/day PCP to anger control counselor Alcohol Use Standard Drinks/Week Comments Not [...] Vaccine: 50+ Years (2 of 2 - PCV20 or PCV21) 07/21/2020 07/21/2019, 07/09/2017 COVID-19 Vaccine (1 - 2024- season) 2025 Influenza Adult (#1) 2025 06/12/2020, 07/07/2019, 07/07/2014, Additional history exists DTaP, Tdap and Td Vaccines (3 - Td or Tdap) 07/21/2029 07/21/2019, 02/11/2018 Hepatitis A Vaccines Aged Out No long er eligible based on patient's age to complete this topic Meningococcal B Vaccine Aged Out No l onger eligible based on patient's age to complete this topic Meningococcal Vaccine Aged Out No jaylan stanislav eligible based on patient's age to complete this topic RSV Immunizations Under 20 Months Aged Out No longer eligible based on patient's age to complete this topic Insurance MEDICARE [facility] Care Teams Telegraph Repeater Installer Relationship Specialty Start Date End Date Hector Graham MD PCP - General INTERNAL MEDICINE 05/16/19
--- OUTSIDE RECORDS SUMMARY | 2025-08-29 09:29 | XMS_ITS | Encounter Summary ---
Author Organization [facility] Address [address] [place] [address] Phone Care Team Providers Care Archives Specialist Name Role Phone Santos Alanis MD, Hector Nam Primary Care Provider Willian Elise MD Primary Care Provider [phone] Jolynn Greene NP Primary Care Provider [phone] Encounter Details Date Type Department Care Team (Late st Contact Info) Description 08/23/2018 Telephone [facility] Cardiology [address] [facility] Advanced Medicine 8th [place] [address] [place] [address] Rachelle Ludwig, MPH Social History Tobacco Use Types Packs/Day Years Used Date Smoking Tobacco: Never Smokeless Tobacco: Former Alcohol Use Standard Drinks/Week Comments No 0 (1 standard drink = 0.6 oz pur e alcohol) Sex and Gender Information Value Date Recorded Sex Assigned at Not on file 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 Gender Identity Not on file Sexual Orientation Not on file documented as of this encounter Plan of Treatment Not on file documented as of this encounter Visit Diagnoses Not on filedocumented in this encounter Care Teams Archives Specialist Relationship Specialty Start Date End Date Hector Graham Jr., MD [address] [place] [address] PCP - General Geriatric Medicine 06/17/18 05/27/21 Willian Elise MD [address] [facility] [address] [place] [address] PCP - General Family Medicine 05/28/21 06/21/25 Jolynn Greene NP [address] [place] [address] PCP - General Family Medicine 06/22/25 documented as of this encounter
[2025-08-29 09:34] LABS: INR 2.1; Prothrombin Time 23.0 Seconds (11.1-14.7)
[2025-08-29 09:35] LABS: Partial Thromboplastin Time 33.0 Seconds (22.3-36.8)
[2025-08-29 09:37] LABS: Alanine Aminotransferase 16 U/L (6-50); Albumin Level 3.9 g/dL (3.5-5.1); Alkaline Phosphatase 84 U/L (38-126); Anion Gap 5 mmol/L (4-12); Aspartate Amino Transferase 31 U/L (17-59); Bilirubin,Total 0.5 mg/dL (0.2-1.3); Blood Urea Nitrogen 15 mg/dL (9-20); Calcium 8.2 mg/dL (8.4-10.2); Carbon Dioxide 26 mmol/L (22-30); Chloride 99 mmol/L (98-107); Estimated CRCL calculation 59 ml/min; Estimated Glomerular Filt Rate > 60; Glucose 120 mg/dL (65-110); Potassium 4.5 mmol/L (3.4-5.0); Sodium 130 mmol/L (137-145); Total Protein 6.8 g/dL (6.3-8.2)
[2025-08-29] MEDS: HYDROmorphone HCL INJ (*CRX) 1 MG/ML SYR 0.5 MG IV PUSH (10:51)
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
[2025-08-29] MEDS: SODIUM CHLORIDE 0.9% IV 1,000 ML 125 ML IV CONT ×2 (12:57→21:19)
--- NOTE | 2025-08-29 13:52 | WPCEDHO ---
ED Hand Off Checklist All vitals saved:yes IV Site documented:yes All med administrations documented:yes Triage Note Triage Note arrived to ed from home for c/o 08/29/25 08:24 left hip pain. pt stated he was folding blanket and missed to get his walker fell to floor. denies loc or hitting head. alert and oriented x 4. Allergies naproxen Allergy (Severe, Verified 08/29/25 08:37) SWELLING/SOB UNCODED Family History (Last Reviewed 06/20/25 @ 14:59 by Gustavo Maher [facility]) Father Cerebrovascular accident Sibling Asthma Other Diabetes mellitus Family history of arthritis Hypertension Active Medications including assessments/comments Sodium Chloride (Normal Saline Iv) 1,000 mls @ 125 mls/hr IV CONT .Q8H VIVIANE Last Admin: 08/29/25 12:57 Dose: 125 mls/hr Documented By: J LUIS Infusion/Titration Document 08/29/25 12:57 J LUIS (Rec: 08/29/25 12:57 J LUIS [id number]) Intake IV Site Peripheral Access Right Wrist Container Volume 1,000 Waste Amount 0 Dosing Infusion Rate 125 Cumulative Dose Not Applicable Increase/Decrease Started Elapsed Time Elapsed Time ( 0m minutes) Administered/Completed Medications Discontinued Medications Hydromorphone HCl (Hydromorphone Hcl Inj (*Crx) 1 Mg/Ml Syr) 0.5 mg IV PUSH ONCE STA Stop: 08/29/25 10:35 Last Admin: 08/29/25 10:51 Dose: 0.5 mg Documented By: GIRISH Morphine Sulfate (Morphine Sulfate (*Crx) 4 Mg/Ml Inj) 4 mg IV PUSH ONCE STA Stop: 08/29/25 08:51 Last Admin: 08/29/25 09:20 Dose: 4 mg Documented By: GIRISH Ondansetron HCl (Ondansetron Inj 4 Mg/2 Ml Vial) 4 mg IV PUSH ONCE STA Stop: 08/29/25 08:51 Last Admin: 08/29/25 09:19 Dose: 4 mg Documented By: GIRISH Interventions/Assessments IV Line Assessment Start: 08/29/25 08:10 Freq: Status: Active Protocol: Document 08/29/25 09:18 GIRISH (Rec: 08/29/25 09:18 GIRISH [id number]) IV Assessment Peripheral Access Right Wrist IV Catheter Access Initiated IV Insertion Date 08/29/25 IV Insertion Time 09:18 Catheter Gauge 22 IV Insertion 2 Attempts Ultrasound Used for No Placement IV Site Assessment WNL IV Care and WNL Maintenance Last Vital Signs Temperature 97.6 F 08/29/25 08:24 Pulse Rate 61 08/29/25 13:25 Respiratory Rate 13 08/29/25 13:25 Pulse Oximetry 97 08/29/25 13:25 Blood Pressure 106/93 H 08/29/25 13:25 Blood Pressure Mean 97 08/29/25 13:25 Oxygen Delivery Room Air 08/29/25 08:24 Weight 99.8 kg 08/29/25 08:24 Last Result - Abnormals Only RBC 4.26 M/mm3 (4.6-6.20) L 08/29/25 09:16 Hgb 13.9 g/dL (14.0-18.0) L 08/29/25 09:16 Hct 41.4 % (42.0-52.0) L 08/29/25 09:16 PT 23.0 Seconds (11.1-14.7) H 08/29/25 09:16 Sodium 130 mmol/L (137-145) L 08/29/25 09:16 Glucose 120 mg/dL (65-110) H 08/29/25 09:16 Calcium 8.2 mg/dL (8.4-10.2) L 08/29/25 09:16 Most Recent Suicide Severity Rating Suicide Severity Rating NO RISK INDICATED 08/29/25 08:24
--- NOTE | 2025-08-29 14:02 | PC.NURSE ---
report given to floor and report given to floor nurse. 2 daughters at bedside and will transport to floor with stretcher.
--- NOTE | 2025-08-29 14:16 | PC.NURSE ---
report given to floor nurse.
--- OUTSIDE RECORDS SUMMARY | 2025-08-29 14:48 | XMS_ITS | Encounter Summary ---
Author Organization [facility] Healthcare Address [address] [place] [address] Care Team Providers Care Human Resources Associate Name Role Phone Alexander Fraire MD Primary Care Provider [phone] Santos Alanis MD, Hector Nam Primary Care Provider Willian Elise MD Primary Care Provider [phone] Jolynn Greene NP Primary Care Provider [phone] Encounter Details Date Type Department Care Team (Late st Contact Info) Description 12/18/2017 Orders Only [facility] Information Management [address] [place] [address] Scanning, Provider Social History Tobacco Use Types Packs/Day Years Used Date Smoking Tobacco: Never Smokeless Tobacco: Former Alcohol Use Standard Drinks/Week Comments No 0 (1 standard drink = 0.6 oz pur e alcohol) Sex and Gender Information Value Date Recorded Sex Assigned at Not on file 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
--- OUTSIDE RECORDS SUMMARY | 2025-08-29 14:48 | XMS_ITS | Encounter Summary ---
Author Organization [facility] Healthcare Address [address] [place] [address] Care Team Providers Care Corrective Therapy Aide Name Role Phone Willian Elise MD Primary Care Provider [phone] Jolynn Greene NP Primary Care Provider [phone] Encounter Details Date Type Department Care Team (Late st Contact Info) Description 06/15/2025 Orders Only [facility] Health Information Management [address] [place] [id number] Scanning, Provider Social History Tobacco Use Types Packs/Day Years Used Date Smoking Tobacco: Never Smokeless Tobacco: Current Chew Alcohol Use Standard Drinks/Week Comments No 0 (1 standard drink = 0.6 oz pur e alcohol) Sex and Gender Information Value Date Recorded Sex Assigned at Not on file 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
--- OUTSIDE RECORDS SUMMARY | 2025-08-29 14:48 | XMS_ITS | Clinical Summary ---
Author Organization [facility] Address [address] [place] [address] Care Team Providers Care Sling Operator Name Role Phone Hector Graham MD [...] Counseling Given: Yes Comments:1/2 pouch/day PCP to tariff counsel Alcohol Use Standard Drinks/Week Comments Not Currently [...] age to complete this topic Insurance MEDICARE [id number] Care Teams Sling Operator Relationship Specialty Start Date End Date Hector Graham MD PCP - General INTERNAL MEDICINE 05/16/19
--- OUTSIDE RECORDS SUMMARY | 2025-08-29 14:48 | XMS_ITS | Clinical Summary ---
Author Organization [facility] [id number] [facility] Address [address] [place] [address] Care Team Providers Care De Icer Element Winder Name Role Phone Hector Graham MD Primary Care Provider [phone] Allergies Active Allergy Reactions Criticality Noted Date [...] A AND B BCBS SUPP Care Teams De Icer Element Winder Relationship Specialty Start Date End Date Hector Graham MD [address] [place] [address] PCP - General Internal Medicine 06/13/19
--- OUTSIDE RECORDS SUMMARY | 2025-08-29 14:48 | XMS_ITS | Encounter Summary ---
Author Organization [facility] Address [address] [place] [address] Phone Care Team Providers Care Pineapple Plantation Manager Name Role Phone Santos Alanis MD, Hector Nam Primary Care Provider Willian Elise MD Primary Care Provider [phone] Jolynn Greene NP Primary Care Provider [phone] Encounter Details Date Type Department Care Team (Late st Contact Info) Description 08/23/2018 Telephone [facility] Cardiology [address] [facility] [place] Advanced Medicine [address]th [place] [address] [place] [address] Rachelle Ludwig, MPH Social History Tobacco Use Types Packs/Day Years Used Date Smoking Tobacco: Never Smokeless Tobacco: Former Alcohol Use Standard Drinks/Week Comments No 0 (1 standard drink = 0.6 oz pur e alcohol) Sex and Gender Information Value Date Recorded Sex Assigned at Not on file 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 [address] [place] [address] PCP - General Family Medicine 05/28/21 06/21/25 Jolynn Greene NP [address] [place] [address] PCP - General Family Medicine 06/22/25 documented as of this encounter
--- OUTSIDE RECORDS SUMMARY | 2025-08-29 14:48 | XMS_ITS | Clinical Summary ---
Author Organization [facility] [address] Address [address] [place] [address] Care Team Providers Care Bulk Plant Operator Name Role Phone Jolynn Greene NP Primary Care Provider [phone] Allergies Active Allergy Reactions Criticality Noted Date [...] Department Care Team Description 08/21/[address] [facility] Cardiology [address] [place] [address] [place] [phone] Ya Rocha RN Atrial fibrillation (CMS/HCC) [I48.91] (Primary Dx); Paroxysmal atrial fibrillation (HCC) 08/18/2025 Orders Only [facility] Cardiology [address] [place] [address] [address] [place] [phone] Jaiden Pisano MD 08/04/2025 Anticoagulation Visit [facility] Cardiology [address] [facility] [address] [address] Catrachita Sheikh RN Atrial fibrillation ([facility]/HCC) [I48.91] (Primary Dx); Paroxysmal atrial fibrillation (HCC) 08/03/2025 Orders Only [facility] Cardiology [address] [place] [address] [address] [place] [phone] Jaiden Pisano MD 07/20/2025 Anticoagulation Visit [facility] Cardiology [address] [place] [address] [address] [place] [phone] Ya Rocha RN Atrial fibrillation ([facility]/HCC) [I48.91] (Primary Dx); Paroxysmal atrial fibrillation (HCC) 07/20/2025 Orders Only [facility] Cardiology [address] [place] [address] [place] [phone] Jaiden Pisano MD 07/20/2025 Telephone [facility] Cardiology [address] [place] [address] [place] [phone] Jaiden Pisano MD INR order 06/23/2025 Anticoagulation Visit [facility] Cardiology at [address] [place] [phone] Itzel Fofana RN Atrial fibrillation ([facility]/HCC) [I48.91] (Primary Dx); Paroxysmal atrial fibrillation (HCC) 06/23/2025 Telephone [facility] Cardiology [address] [place] [address] [address] [place] [phone] Jaiden Pisano MD INR results 06/22/2025 10:00 AM CDT Office Visit [facility] Cardiology [address] [place] [address] [address] [place] [phone] Arleth Franklin NP Vasovagal near syncope; Hyponatremia; Edema, lower extremity; Paroxysmal atrial fibrillation (HCC); Chronic anticoagulation; Hospital discharge follow-up 06/15/2025 Orders Only [facility] Health Information Management [address] [place] [address] Scanning, Provider 06/15/[address] 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 Gender Identity Not on file Sexual Orientation [...] Protime-INR (08/18/2025 12:37 PM CDT) INR 1.8(H) ZaploxCecelia Ponce Comment: Reference Range 0.9-1.1 Moderate-intensity Warfarin Therapy 2.0-3.0 Higher-intensity Warfarin Therapy 3.0-4.0 PT 18.5(H) 9.0 - 11.5 sec ZaploxCecelia Ponce Comment: For additional information, please refer to http://education.Teqcycle/faq/AHU420 (This link is being provided for informational/ educational purposes only.) 08/18/2025 12:3 7 PM CDT 08/18/2025 12:37 PM CDT us Jaiden Pisano MD LAB BLOOD ORDERABLES Fin al Result VolveChris Ponce [address] [place] [address] * (ABNORMAL) Protime-INR (08/03/2025 9:02 AM CDT) INR 1.7(H) Rebeca DestiCecelia Ponce Comment: Reference Range 0.9-1.1 Moderate-intensity Warfarin Therapy 2.0-3.0 Higher-intensity Warfarin Therapy 3.0-4.0 PT 17.7(H) 9.0 - 11.5 sec [facility] Comment: For additional information, please refer to http://[employer].Teqcycle/faq/IKX102 (This link is being provided for informational/ educational purposes only.) 08/03/2025 9:02 AM CDT 08/03/2025 9:02 AM CDT Jaiden Pisano MD LAB BLOOD ORDERABLES Fin al Result Performing Organization Address [facility] Co de Phone Number [facility] [address] [place] [address] * (ABNORMAL) Protime-INR (07/20/2025 9:41 AM CDT) INR 1.6(H) [facility] Comment: Reference Range 0.9-1.1 Moderate-intensity Warfarin Therapy 2.0-3.0 Higher-intensity Warfarin Therapy 3.0-4.0 PT 16.1(H) 9.0 - 11.5 sec [facility] Comment: For additional information, please refer to http://[employer].Teqcycle/faq/GCV142 (This link is being provided for informational/ educational purposes only.) 07/20/2025 9:41 AM CDT 07/20/2025 9:41 AM CDT Jaiden Pisano MD LAB BLOOD ORDERABLES Fin al Result Performing Organization Address [facility] Co de Phone Number [facility] [address] [place] [address] * (ABNORMAL) Protime-INR (06/22/2025) INR 2.20(A) 0.90 - 1.10 EXTERNAL LAB Blood us Historical Provider LAB BLOOD ORDERABLES Mitzi l Result EXTERNAL LAB * SCAN - LABS (06/15/2025) us Provider Scanning Edited Result - Final * (ABNORMAL) Protime-INR (06/15/2025) INR 1.50(A) 0.90 - 1.10 EXTERNAL INTERFACED LAB Blood us Historical Provider LAB BLOOD ORDERABLES Mitzi l Result EXTERNAL INTERFACED LAB [address] [place] [address] from Last 3 Months Insurance MEDICARE MEDICARE [facility] MEDICARE SUPPLEMENT Care Teams Bulk Plant Operator Relationship Specialty Start Date End Date Jolynn Greene NP [address] [address] PCP - General Family Medicine 06/22/25
[2025-08-29] MEDS: HYDROmorphone HCL INJ (*CRX) 1 MG/ML SYR 0.8 MG IV PUSH ×2 (15:22→21:27)
[2025-08-29] MEDS: TELMISARTAN 40 MG TABLET PO (21:18)
[2025-08-29] MEDS: MONTELUKAST SODIUM 10 MG TABLET PO (21:18)
[2025-08-29] MEDS: VITAMIN B COMPLEX/VIT C CAPSULE 1 EACH PO (21:18)
[2025-08-29] MEDS: ASCORBIC ACID 500 MG TABLET 1000 MG PO (21:19)
[2025-08-29] MEDS: DORZOLAMIDE/TIMOLOL OPHTH SOL 10 ML BOTTLE 1 DROP EACH EYE (21:19)
[2025-08-29] MEDS: LATANOPROST 0.005% OP SOLN 2.5 ML BTL 1 DROP EACH EYE (21:20)
[2025-08-29] MEDS: PRIMIDONE 250 MG TABLET PO (22:19)
[2025-08-30] VITALS (11 sets, daily range): BP systolic 125–179; BP diastolic 49–86; PULSE 48–62; RESP 13–16; TEMP 36.2–37.4; O2SAT 97–100
[2025-08-30 05:34] LABS: Hematocrit 34.8 % (42.0-52.0); Hemoglobin 11.6 g/dL (14.0-18.0); Immature Granulocyte Percent A 0.5 % (0-0.5); Immature Platelet Fraction Pct 2.9 % (0.9-11.2); Lymphocytes Absolute Auto 0.84 K/mm3 (0.9-3.2); Mean Corpuscular HGB Conc 33.3 g/dl (32-36); Mean Corpuscular Hemoglobin 32.4 pg (26-34); Mean Corpuscular Volume 97.2 fl (80-100); Nucleated Red Blood Cells Absolute Auto 0.000 K/mm3 (0.0-0.012); Nucleated Red Blood Cells Perc 0.0 % (0.0-0.2); Platelet Count Result 148 k/mm3 (150-375); Red Blood Count 3.58 M/mm3 (4.6-6.20); White Blood Count 6.2 K/mm3 (4.5-10.0)
[2025-08-30 05:50] LABS: Alanine Aminotransferase 15 U/L (6-50); Albumin Level 3.4 g/dL (3.5-5.1); Alkaline Phosphatase 75 U/L (38-126); Anion Gap 3 mmol/L (4-12); Aspartate Amino Transferase 25 U/L (17-59); Bilirubin,Total 0.6 mg/dL (0.2-1.3); Blood Urea Nitrogen 13 mg/dL (9-20); Calcium 7.7 mg/dL (8.4-10.2); Carbon Dioxide 24 mmol/L (22-30); Chloride 101 mmol/L (98-107); Estimated CRCL calculation 65 ml/min; Estimated Glomerular Filt Rate > 60; Glucose 129 mg/dL (65-110); Potassium 4.0 mmol/L (3.4-5.0); Sodium 128 mmol/L (137-145); Total Protein 6.0 g/dL (6.3-8.2)
[2025-08-30 05:54] LABS: INR 2.7; Prothrombin Time 27.4 Seconds (11.1-14.7)
[2025-08-30] MEDS: HYDROmorphone HCL INJ (*CRX) 1 MG/ML SYR 0.5 MG IV PUSH ×2 (06:13→09:41)
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
--- NOTE | 2025-08-30 07:17 | WPDHPUPDATE1 ---
History and Physical Update Update Date/Time: 08/30/25 07:17 History and Physical has been reviewed, including an updated exam of the patient. There are NO changes in the patient's condition. Risks, benefits, and alternatives have been discussed and questions answered. Patient agrees to proceed with procedure.
[2025-08-30] MEDS: AMIODARONE HCL 200 MG TABLET PO (08:00)
[2025-08-30] MEDS: FLUTICASONE PROPIONATE 0.05% NA SPR 16 GM BTL (*BKC) 2 SPRAY NASAL (08:01)
[2025-08-30] MEDS: PRIMIDONE 250 MG TABLET PO ×3 (08:01→20:07)
[2025-08-30] MEDS: DORZOLAMIDE/TIMOLOL OPHTH SOL 10 ML BOTTLE 1 DROP EACH EYE ×2 (08:01→20:18)
--- NOTE | 2025-08-30 09:26 | PC.NURSE ---
Spoke with Pre-op nurse Violette about what meds were okay to give the patient this morning. She requested I give the amiodarone, buspirone, primidone, eye drops, and fluconazole nasal spray. Held all other medications per surgery request.
[2025-08-30] MEDS: LACTATED RINGERS 1,000 ML 30 ML IV CONT ×2 (12:35→18:56)
--- NOTE | 2025-08-30 12:50 | WPDANESEPPF ---
Anes - Initial Pre Proc Eval Procedure: Operation Date: 08/30/25 13:30 Proposed Procedures p Left Intertrochanteric Nail - Farhan Navarro MD Date/Time: 08/30/25 12:50 Surgeon: Aliyah Beaver MD Pre Op Diagnosis: Left Hip Fracture Patient Data Age: 89 Gender: M Height: 1.8 m Weight: 99.8 kg Last Vital Signs Temp 36.4 C L 08/30/25 05:05 Pulse 62 08/30/25 08:00 Resp 16 08/30/25 05:05 BP 125/49 L 08/30/25 05:05 Pulse Ox 100 08/30/25 05:05 O2 Del Method Room Air 08/29/25 08:24 Allergies Allergy/AdvReac Type Severity Reaction Status Date / Time naproxen Allergy Severe SWELLING/SO Verified 08/29/25 16:26 B Home Medications ?Medication ?Instructions ?Recorded ?Confirmed ?Type latanoprost 0.005 % eye drops 1 drop ophthalmic (eye) HS 03/28/20 08/29/25 History B-complex with vitamin C 1 tablet PO HS 05/09/20 08/29/25 History amiodarone 200 mg tablet 200 mg PO DAILY 05/09/20 08/29/25 History ascorbic acid (vitamin C) 1,000 mg 1 g PO HS 05/09/20 08/29/25 History tablet cholecalciferol (vitamin D3) 75 75 mcg PO DAILY 05/07/21 08/29/25 History mcg (3,000 unit) tablet acetaminophen 325 mg tablet (Mapap 650 mg (2 x 325 mg) PO Q6H PRN 05/29/23 08/29/25 Rx (acetaminophen)) Mild Pain (1-3) Or Fever #0 tabs atorvastatin 10 mg tablet 10 mg PO EVERY OTHER DAY #90 tabs 07/12/24 08/29/25 Rx fluticasone propionate 50 2 spray intranasal DAILY chronic 12/12/24 08/29/25 Rx mcg/actuation nasal seasonal allergic rhinitis #48 mL spray,suspension (Flonase Allergy Relief) albuterol sulfate 90 mcg/actuation 1 - 2 inh inhalation Q4H PRN 04/06/25 08/29/25 Rx aerosol inhaler shortness of breath or wheezing #8.5 grams warfarin 5 mg tablet 5 mg PO DAILY 04/06/25 08/29/25 History montelukast 10 mg tablet 10 mg PO QHS #90 tabs 04/11/25 08/29/25 Rx primidone 250 mg tablet 250 mg PO TID #270 tabs 04/17/25 08/29/25 Rx fexofenadine 180 mg tablet 180 mg PO DAILY 06/08/25 08/29/25 History (Kat Allergy) telmisartan 40 mg tablet 40 mg PO HS 06/08/25 08/29/25 History buspirone 5 mg tablet 5 mg PO BID #60 tabs 06/20/25 08/29/25 Rx dorzolamide 22.3 mg-timolol 6.8 1 drp EACH EYE Q12H 08/29/25 08/29/25 History mg/mL eye drops furosemide 20 mg tablet 20 mg PO .COMPLEX 08/29/25 08/29/25 History vit C 250 mg-vit E 90 mg-zinc 40 1 tablet PO BID 08/29/25 08/29/25 History mg-copper 1 [id number] capsule (PreserVision AREDS-2) Laboratory Tests 08/29/25 08/29/25 08/30/25 16:23 20:33 05:13 WBC 6.2 K/mm3 (4.5-10.0) RBC 3.58 L M/mm3 (4.6-6.20) Hgb 11.6 L g/dL (14.0-18.0) Hct 34.8 L % (42.0-52.0) MCV 97.2 fl (80-100) MCH 32.4 pg (26-34) MCHC 33.3 g/dl (32-36) RDW 13.2 % (11.5-14.5) Plt Count 148 L k/mm3 (150-375) MPV 9.8 fl (7.4-10.4) Immature Gran % (Auto) 0.5 % (0-0.5) Neut % (Auto) 75.8 H % (45.5-73.1) Lymph % (Auto) 13.5 L % (18.3-44.2) [place] % (Auto) 9.3 H % (2.6-8.5) Eos % (Auto) 0.6 % (0-4.4) Baso % (Auto) 0.3 % (0.2-1.2) Lymph # (Auto) 0.84 L K/mm3 (0.9-3.2) [place] # (Auto) 0.6 K/mm3 (0.1-0.6) Eos # (Auto) 0.0 K/mm3 (0-0.3) Baso # (Auto) 0.0 K/mm3 (0.0-0.1) Abs Immat Gran (auto) 0.03 K/mm3 (0.00-0.031) Absolute Neuts (auto) 4.7 K/mm3 (1.3-6.7) Absolute Nucleated RBC 0.000 K/mm3 (0.0-0.012) Nucleated RBC % 0.0 % (0.0-0.2) % Immature Plt Fraction 2.9 % (0.9-11.2) PT 27.4 H Seconds (11.1-14.7) INR 2.7 Sodium 128 L mmol/L (137-145) Potassium 4.0 mmol/L (3.4-5.0) Chloride 101 mmol/L (98-107) Carbon Dioxide 24 mmol/L (22-30) Anion Gap 3 L mmol/L (4-12) BUN 13 mg/dL (9-20) Creatinine 0.82 mg/dL (0.7-1.3) Estim Creat Clear Calc 65 ml/min Estimated GFR > 60 (59 - ) Glucose 129 H mg/dL (65-110) POC Capillary Glucose 130 H mg/dl 136 H mg/dl (65-105) (65-105) Calcium 7.7 L mg/dL (8.4-10.2) Total Bilirubin 0.6 mg/dL (0.2-1.3) AST 25 U/L (17-59) ALT 15 U/L (6-50) Alkaline Phosphatase 75 U/L (38-126) Total Protein 6.0 L g/dL (6.3-8.2) Albumin 3.4 L g/dL (3.5-5.1) 08/30/25 08/30/25 07:19 11:16 WBC RBC Hgb Hct MCV MCH MCHC RDW Plt Count MPV Immature Gran % (Auto) Neut % (Auto) Lymph % (Auto) [place] % (Auto) Eos % (Auto) Baso % (Auto) Lymph # (Auto) [place] # (Auto) Eos # (Auto) Baso # (Auto) Abs Immat Gran (auto) Absolute Neuts (auto) Absolute Nucleated RBC Nucleated RBC % % Immature Plt Fraction PT INR Sodium Potassium Chloride Carbon Dioxide Anion Gap BUN Creatinine Estim Creat Clear Calc Estimated GFR Glucose POC Capillary Glucose 124 H mg/dl 117 H mg/dl (65-105) (65-105) Calcium Total Bilirubin AST ALT Alkaline Phosphatase Total Protein Albumin Patient hx anesthesia problems: none Family hx anesthesia problems: none Results Review: All pre-operative results and documents have been reviewed as part of the pre-operative evaluation. [facility] Past Medical History Medical History (Updated 08/30/25 @ 12:51 by Marcin Sosa MD) Anxiety Right knee pain Abnormal urine BMI 30.0-30.9,adult Hypertension Pneumonia Spondylosis of lumbar spine Pancreatic lesion BMI 32.0-32.9,adult Anemia Pneumonia due to COVID-19 virus Edema, lower extremity Arthritis Seasonal allergies Cervical vertebral fusion Glaucoma Hearing loss Headache Hyponatremia Neck pain, acute Unspecified fall, initial encounter Eye exam normal Chronic atrial fibrillation Chronic diastolic (congestive) heart failure Essential tremor Mixed hyperlipidemia Type 2 diabetes mellitus without complication, without long-term current use of insulin Family History Family History Father Cerebrovascular accident Sibling Asthma Other Diabetes mellitus Family history of arthritis Hypertension Social History Social History Social History: patient is a nonsmoker and never has smoked. He does not use alcohol or drugs. 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 His power of edger hand is Jia Leon, daughter. He would like to be a full code Smoking status: Never smoker Tobacco type: smokeless tobacco Smokeless tobacco user: chewing tobacco Second hand tobacco smoke exposure: No Alcohol intake: never Substance use: never Substance use type: does not use Lack of Transportation: No Lack of Food: Never True Current Housing: I Have Housing Concerned About Future Housing: No Difficulty Paying Gas/Electric Bills: No Difficulty Paying for Meds: No Currently Unemployed: No Education: High School Diploma/GED Difficulty w/ Childcare or Family Care: No Living arrangements: with family Occupation/Education: retired Gender identity (if verbalized by the patient): Male Sexual Orientation (if Verbalized by the Patient): Straight or Heterosexual Spiritual care concerns: No Agree to blood products: Yes Anes - Eval Final PreProcedure Day of Procedure 08/30/25 12:50 Patient weight: obese Heart: irregular rhythm Lungs: clear to auscultation Airway: Mallampati scale class II Neurological: alert and oriented Last oral intake: >/= 8 hours ASA classification: III Emergent: no Anesthetic plan: proceed Anesthesia type and monitoring: general LMA and standard monitoring Results Review: All pre-operative results and documents have been reviewed as part of the pre-operative evaluation. Informed Consent: The patient's anesthetic plan and its attendant risks and benefits were discussed with the patient/family/POA. Questions were solicited and answers provided to the satisfaction of the patient/family/POA.
[2025-08-30] MEDS: TRANEXAMIC ACID 1,000MG/ISO100 1,000 MG/100 ML BAG 200 MG IVPB (12:52)
[2025-08-30] MEDS: ACETAMINOPHEN 500 MG TABLET 1000 MG PO (12:53)
[2025-08-30] MEDS: ceFAZolin 2 GM in SODIUM CHLORIDE 0.9% IV 50 ML 100 ML IVPB ×2 (17:24→21:49)
[2025-08-30] MEDS: TRANEXAMIC ACID 1,000 MG/10 ML AMPUL 1000 MG IV PUSH (18:31)
--- NOTE | 2025-08-30 18:48 | W.PM.PROC2 ---
Procedure Note - Detailed Date of Procedure 08/30/25 Pre-op Diagnosis Left Intertrochanteric Femur Fracture Post-op Diagnosis Same Procedure Performed INSERTION TROCHANTERIC BEBETO LEFT HIP Surgeon Farhan Navarro MD Anesthesia General Description of Procedure THE PATIENT WAS TAKEN TO THE OPERATING ROOM AND PLACED ON A FRACTURE TABLE AFTER GIVEN GENERAL ANESTHESIA. THE LEFT LOWER EXTREMITY WAS PLACED IN A TRACTION BOOT AND USING SOME TRACTION AND INTERNAL ROTATION THE INNER TROCHANTERIC FRACTURE WAS REDUCED TO ANATOMIC POSITION. NEXT THE LEFT LOWER EXTREMITY WAS PREPPED AND DRAPED IN THE STERILE FASHION. AN INCISION WAS MADE PROXIMAL TO THE TIP OF THE GREATER TROCHANTER AND DISSECTION CONTINUED TILL THE TIP OF THE GREATER TROCHANTER WAS PALPATED. A GUIDE PIN WAS PLACED DOWN THE FEMORAL CANAL AND PAST THE FRACTURE SITE. THIS WAS CHECKED ON FLUOROSCOPY AND FOUND TO BE IN GOOD POSITION. AN INITIAL REAMER WAS USED TO REAM THE FEMORAL CANAL. AN 11 X 220 MM ARTHREX TROCHANTERIC FEMORAL BEBETO WAS INSERTED TILL THE CORRECT POSITION WAS IDENTIFIED ON XRAY. A GUIDE PIN WAS INSERTED THROUGH THE FEMORAL NECK AT 125 DE[address] ANGLE TILL IT REACHED THE TIP OF THE SUB CHONDRAL BONE SEEN ON XRAY. AFTER REAMING, LAG SCREW WAS INSERTED MEASURING 105 MM. XRAYS SHOWED IT TO BE IN GOOD POSITION. THE LAG SCREW WAS LOCKED PROXIMALLY WITH A LOCKING SCREW. NEXT A DISTAL LOCKING SCREW WAS PLACED ACROSS THE BEBETO AND WAS IN GOOD POSITION ON XRAY. THE TRACTION WAS RELEASED. THE WOUNDS WERE WASHED. THE DEEP FASCIA WAS REPAIRED WITH 0 VICRYL SUTURE, THE SUB CUTANEOUS LAYER WITH 2-0 VICRYL, AND THE SKIN WITH ISAÍAS. THE WOUNDS WERE WASHED AND THEN STERILE DRESSING WAS APPLIED. PATIENT WAS EXTUBATED AND SENT TO RECOVERY ROOM. Estimated Blood Loss 150 Urine Output 200 Complications No immediate complications Condition Stable Disposition PACU
[2025-08-30] MEDS: diazePAM (*CRX) 5 MG TABLET PO (20:06)
[2025-08-30] MEDS: oxyCODONE/ACETAMINOPHEN (*CRX) 10-325 MG TABLET 1 TAB PO (20:07)
[2025-08-30] MEDS: MONTELUKAST SODIUM 10 MG TABLET PO (20:07)
[2025-08-30] MEDS: TELMISARTAN 40 MG TABLET PO (20:08)
[2025-08-30] MEDS: FAMOTIDINE 20 MG TABLET PO (20:10)
[2025-08-30] MEDS: ASCORBIC ACID 500 MG TABLET 1000 MG PO (20:11)
[2025-08-30] MEDS: LATANOPROST 0.005% OP SOLN 2.5 ML BTL 1 DROP EACH EYE (20:18)
[2025-08-30] MEDS: VITAMIN B COMPLEX/VIT C CAPSULE 1 EACH PO (20:18)
[2025-08-31] VITALS (8 sets, daily range): BP systolic 128–172; BP diastolic 42–87; PULSE 54–79; RESP 14–18; TEMP 36.4–37.3; O2SAT 94–97; BMI 10.0
[2025-08-31] MEDS: oxyCODONE/ACETAMINOPHEN (*CRX) 10-325 MG TABLET 1 TAB PO ×3 (02:00→16:11)
[2025-08-31] MEDS: ceFAZolin 2 GM in SODIUM CHLORIDE 0.9% IV 50 ML 100 ML IVPB ×2 (05:04→14:47)
[2025-08-31 05:08] LABS: Hematocrit 32.3 % (42.0-52.0); Hemoglobin 10.8 g/dL (14.0-18.0); Immature Granulocyte Percent A 0.4 % (0-0.5); Lymphocytes Absolute Auto 0.93 K/mm3 (0.9-3.2); Mean Corpuscular HGB Conc 33.4 g/dl (32-36); Mean Corpuscular Hemoglobin 32.6 pg (26-34); Mean Corpuscular Volume 97.6 fl (80-100); Nucleated Red Blood Cells Absolute Auto 0.000 K/mm3 (0.0-0.012); Nucleated Red Blood Cells Perc 0.0 % (0.0-0.2); Platelet Count Result 118 k/mm3 (150-375); Red Blood Count 3.31 M/mm3 (4.6-6.20); White Blood Count 6.9 K/mm3 (4.5-10.0)
--- NOTE | 2025-08-31 05:16 | PC.NURSE ---
Patient requests to not remove cisneros at this time. Patient states he is unable to use a urinal laying down. Patient is agreeable to remove cisneros after PT gets him up and out of bed and he is able to use a urinal at bedside and stand up. Charge nurse aware.
[2025-08-31 05:29] LABS: Alanine Aminotransferase 13 U/L (6-50); Albumin Level 3.2 g/dL (3.5-5.1); Alkaline Phosphatase 69 U/L (38-126); Anion Gap 3 mmol/L (4-12); Aspartate Amino Transferase 25 U/L (17-59); Bilirubin,Total 0.5 mg/dL (0.2-1.3); Blood Urea Nitrogen 13 mg/dL (9-20); Calcium 7.7 mg/dL (8.4-10.2); Carbon Dioxide 24 mmol/L (22-30); Chloride 100 mmol/L (98-107); Estimated CRCL calculation 63 ml/min; Estimated Glomerular Filt Rate > 60; Glucose 99 mg/dL (65-110); Potassium 3.9 mmol/L (3.4-5.0); Sodium 127 mmol/L (137-145); Total Protein 5.8 g/dL (6.3-8.2)
[2025-08-31] MEDS: diazePAM (*CRX) 5 MG TABLET PO (05:36)
[2025-08-31 05:44] LABS: INR 3.5; Prothrombin Time 33.6 Seconds (11.1-14.7)
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
[2025-08-31] MEDS: CHOLECALCIFEROL (VITAMIN D3) 25 MCG (1,000 UNITS) TABLET 75 MCG PO (08:35)
[2025-08-31] MEDS: SENNA/DOCUSATE SODIUM TABLET 2 TAB PO ×2 (08:36→17:07)
[2025-08-31] MEDS: PRIMIDONE 250 MG TABLET PO ×3 (08:37→17:07)
[2025-08-31] MEDS: FAMOTIDINE 20 MG TABLET PO ×2 (08:37→20:27)
[2025-08-31] MEDS: LORATADINE 10 MG TABLET PO (08:37)
[2025-08-31] MEDS: CELECOXIB 200 MG CAPSULE PO (08:37)
[2025-08-31] MEDS: FLUTICASONE PROPIONATE 0.05% NA SPR 16 GM BTL (*BKC) 2 SPRAY NASAL (08:38)
[2025-08-31] MEDS: DORZOLAMIDE/TIMOLOL OPHTH SOL 10 ML BOTTLE 1 DROP EACH EYE ×2 (08:39→20:27)
[2025-08-31] MEDS: ONDANSETRON INJ 4 MG/2 ML VIAL IV PUSH (08:40)
--- NOTE | 2025-08-31 09:19 | P.PNOP_ITS ---
Progress Note: A&P Assessment and Plan (1) Femoral neck fracture: Qualifiers: Encounter type: initial encounter Fracture type: closed Laterality: left Qualified Code(s): S72.002A - Fracture of unspecified part of neck of left femur, initial encounter for closed fracture Code(s): S72.009A - Fracture of unspecified part of neck of unspecified femur, initial encounter for closed fracture Status: Acute Assessment and Plan: POD #1: INSERTION TROCHANTERIC BEBETO LEFT HIP Continue PT/OT. PWB. Walker. HIGH FALL RISK. Continue pain control. Ice Hip. Protect skin. DVT prophylaxis with Resumed Warfarin. SCDs. Incentive Spirometry Use reviewed. Monitor Dressing. Change prior to discharge. Bowel Regimen. Dispo: LYLE pending progress with PT/OT and medical clearance Plan Reviewed history, exam, radiographs and current labs with attending MD and covering surgeon, Dr. Navarro, who agrees with current plan as indicated above. No further recommendations from Dr. Navarro at this time. Subjective Subjective Date/Time Seen: 08/31/25 09:19 Post Op day: 1 Interval history: POD #1: INSERTION TROCHANTERIC BEBETO LEFT HIP Patient had difficulty with nausea when attempting to get OOB with PT this morning. Up in bed, eating breakfast. 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 Review of Systems Constitutional: Constitutional: Denies chills, Denies fatigue, Denies fever(s), Denies night sweats and Denies weakness Cardiovascular: Cardiovascular: Denies chest pain, Denies lightheadedness, Denies palpitations and Denies dyspnea Respiratory: Respiratory: Denies cough, Denies dyspnea and Denies wheezing Gastrointestinal: Gastrointestinal: Denies abdominal pain, Denies diarrhea, Denies nausea and Denies vomiting Musculoskeletal: Musculoskeletal: Reports arthralgias (left hip ), Reports joint swelling (left hip ) and Denies numbness Neurologic: Denies numbness and Denies weakness Endocrine: Endocrine: Denies fatigue and Denies palpitations Allergic/Immunologic: Allergic/Immunologic: Denies wheezing Exam Const: General: comfortable and no acute distress Orientation/consciousness: patient oriented x3 Limitations: no limitations Resp: Effort & Inspection: normal respiratory effort Cardio: Rate: regular rate Rhythm: regular rhythm GI: Inspection: non-distended Skin: General skin exam: normal color and wounds noted (incision left hip C/D/I ) Wounds: wounds noted (incision left hip C/D/I ) Neuro: General: patient oriented x3 Extrem: Left lower extremity: hip/thigh Details: tenderness Location: of the hip Location: laterally and anteriorly, swelling (thigh soft ) Location: of the hip (lateral. ), abnormal ROM (limitations with internal/external rotation and flexion/extension due to recent surgical intervention ) and other (incision lateral hip c/d/i. ), knee Details: normal to inspection and normal ROM; no tenderness and no swelling, lower leg (Negative Nancy's Sign ) Details: no edema, ankle (+ankle dorsiflexion/plantarflexion ) Details: normal to inspection, no edema and normal ROM; no tenderness, no swelling and no warmth and foot Details: normal capillary refill, toes with normal ROM, vascular exam Details: dorsalis pedis pulse present and motor-sensory exam light-touch normal in all toes; no tenderness, no ecchymosis and no crepitus Psych: Mental Status: mental status grossly normal Affect: normal affect Objective Data Vital Signs Vital Signs: Vital Signs - 24 hr 08/30/25 12:25 08/30/25 18:56 08/30/25 19:10 Temperature 37.4 C 36.2 C L Pulse Rate 53 L 52 L 53 L Respiratory Rate 16 14 Blood Pressure 154/57 H 162/67 H 168/79 H Pulse Oximetry 97 99 98 Oxygen Delivery Room Air Simple Face Mask Room Air Oxygen Flow Rate 8 08/30/25 19:25 08/30/25 19:35 08/30/25 19:48 Temperature 36.3 C L Pulse Rate 53 L 55 L 57 L Respiratory Rate 13 13 16 Blood Pressure 179/60 H 164/60 H 145/52 H Pulse Oximetry 97 98 99 Oxygen Delivery Room Air Room Air Oxygen Flow Rate 08/30/25 20:00 08/30/25 20:08 08/30/25 20:38 Temperature 36.4 C 36.6 C Pulse Rate 59 L 56 L Respiratory Rate 16 16 Blood Pressure 149/86 H 152/64 H Pulse Oximetry 100 97 Oxygen Delivery Room Air Oxygen Flow Rate 08/30/25 21:38 08/31/25 01:23 08/31/25 05:23 Temperature 36.7 C 36.7 C 37.3 C Pulse Rate 48 L 54 L 54 L Respiratory Rate 16 16 18 Blood Pressure 143/57 H 137/54 L 131/46 L Pulse Oximetry 100 97 95 Oxygen Delivery Oxygen Flow Rate 08/31/25 07:59 Temperature Pulse Rate Respiratory Rate Blood Pressure Pulse Oximetry Oxygen Delivery Room Air Oxygen Flow Rate Intake/Output Intake/Output: Intake & Output 08/28/25 08/29/25 08/30/25 08/31/25 23:59 23:59 23:59 23:59 Intake Total 1240 2100 150 Output Total 0 1325 200 Balance 1240 775 -50 Meds/Results Medications: Active Medications Generic Name Dose Route Start Last Admin Trade Name Freq PRN Reason Stop Dose Admin Acetaminophen 500 mg 08/30/25 19:38 Acetaminophen 500 Mg Tablet PO Q6H PRN Pain Rated 1-3 Amiodarone HCl 200 mg 08/30/25 09:00 08/31/25 08:43 Amiodarone Hcl 200 Mg Tablet PO Not Given DAILY [facility] Ascorbic Acid 1,000 mg 08/29/25 21:00 08/30/25 20:11 Ascorbic Acid 500 Mg Tablet PO 1,000 mg HS VIVIANE Administration Benzocaine 1 lozenge 08/29/25 20:34 Benzocaine/Menthol (*Bkc) 18 Ea Lozenge PO PRN PRN Sore Throat Buspirone HCl 5 mg 08/29/25 19:40 08/31/25 08:37 Buspirone Hcl 5 Mg Tablet PO 5 mg BID VIVIANE Administration Celecoxib 200 mg 08/31/25 08:00 08/31/25 08:37 Celecoxib 200 Mg Capsule PO 200 mg DAILY@0800 VIVIANE Administration Dextrose 12.5 gm 08/29/25 12:33 Dextrose 50% 25 Gm/50 Ml Syringe IV PUSH PRN PRN Hypoglycemia Protocol Diazepam 5 mg 08/30/25 19:38 08/31/25 05:36 Diazepam (*Crx) 5 Mg Tablet PO 5 mg Q8H PRN Administration Muscle Spasm Dorzolamide/Timolol 1 drop 08/29/25 21:00 08/31/25 08:39 Dorzolamide/Timolol Ophth Olivia 10 Ml Bottle EACH EYE 1 drop Q12H VIVIANE Administration Famotidine 20 mg 08/30/25 21:00 08/31/25 08:37 Famotidine 20 Mg Tablet PO 20 mg Q12HR VIVIANE Administration Fluticasone Propionate 2 spray 08/30/25 09:00 08/31/25 08:38 Fluticasone Propionate 0.05% Na Spr 16 Gm Btl (*Bkc) NASAL 2 spray DAILY VIVIANE Administration Furosemide 20 mg 09/01/25 09:00 Furosemide 20 Mg Tablet PO 09/01/25 09:01 ONCE ONE Furosemide 20 mg 09/01/25 09:00 Furosemide 20 Mg Tablet PO MoWeFr@0900 VIVIANE Glucagon 1 mg 08/29/25 12:33 Glucagon For Inj 1 Mg Vial IM PRN PRN Hypoglycemia Protocol Glucose 15 gm 08/29/25 12:33 Glucose Oral Gel 15 Gm Of Glucse In 37.5 Gm Tube PO PRN PRN Hypoglycemia Protocol Hydromorphone HCl 1 mg 08/30/25 19:38 Hydromorphone Hcl Inj (*Crx) 1 Mg/Ml Syr IV PUSH Q2H PRN Breakthrough Pain Rated 7-10 or NPO Hydromorphone HCl 0.5 mg 08/30/25 19:38 Hydromorphone Hcl Inj (*Crx) 1 Mg/Ml Syr IV PUSH Q2H PRN Breakthrough Pain Rated 4-6 or NPO Hydroxyzine Pamoate 50 mg 08/30/25 19:38 Hydroxyzine Pamoate 25 Mg Capsule PO Q4H PRN Itching Dextrose 1,000 mls @ 100 mls/hr 08/29/25 12:33 Dextrose 5% 1,000 Ml IVPB PRN PRN Hypoglycemia Protocol Cefazolin Sodium 2 gm/ Sodium 50 mls @ 100 mls/hr 08/30/25 22:00 08/31/25 05:34 Chloride IVPB 08/31/25 14:29 Infused Q8H [facility] Infusion Ibuprofen 800 mg in 200 mls @ 400 mls/hr 08/30/25 19:38 Caldolor 800 Mg/200 Ml IVPB Q6H PRN Breakthrough Pain Rated 1-3 or NPO Insulin Aspart 2 - 5 units 08/29/25 17:00 08/31/25 08:38 Insulin Aspart (*Bkc) 100 Units/Ml SUB-Q Not Given TIDWM [facility] Protocol Latanoprost 1 drop 08/29/25 21:00 08/30/25 20:18 Latanoprost 0.005% Op Soln 2.5 Ml Btl EACH EYE 1 drop HS VIVIANE Administration Loratadine 10 mg 08/30/25 09:00 08/31/25 08:37 Loratadine 10 Mg Tablet PO 10 mg DAILY VIVIANE Administration Montelukast Sodium 10 mg 08/29/25 21:00 08/30/25 20:07 Montelukast Sodium 10 Mg Tablet PO 10 mg QHS VIVIANE Administration Naloxone HCl 0.1 mg 08/30/25 19:38 Naloxone Hcl 0.4 Mg/Ml Vial IV PUSH Q2M PRN Opiate Reversal Ondansetron HCl 4 mg 08/30/25 19:38 08/31/25 08:40 Ondansetron Inj 4 Mg/2 Ml Vial IV PUSH 4 mg Q4H PRN Administration Nausea And Vomiting Oxycodone/Acetaminophen 1 tablet 08/30/25 19:38 Oxycodone/Acetaminophen (*Crx) 5-325 Mg Tablet PO Q4H PRN Pain Rated 4-6 Oxycodone/Acetaminophen 1 tab 08/30/25 19:38 08/31/25 08:37 Oxycodone/Acetaminophen (*Crx) 10-325 Mg Tablet PO 1 tab Q6H PRN Administration Pain Rated 7-10 Polyethylene Glycol 17 gm 08/30/25 09:00 08/31/25 08:36 Polyethylene Glycol 3350 17 Gm Powd.Pack PO 17 gm QAM VIVIANE Administration Polyethylene Glycol 17 gm 08/31/25 09:00 08/31/25 08:38 Polyethylene Glycol 3350 17 Gm Powd.Pack PO Not Given QAM VIVIANE Primidone 250 mg 08/29/25 19:45 08/31/25 08:37 Primidone 250 Mg Tablet PO 250 mg TID VIVIANE Administration Senna/Docusate Sodium 2 tab 08/31/25 09:00 08/31/25 08:36 Senna/Docusate Sodium Tablet PO 2 tab BID VIVIANE Administration Telmisartan 40 mg 08/29/25 21:00 08/30/25 20:08 Telmisartan 40 Mg Tablet PO 40 mg HS VIVIANE Administration Vitamin B Complex/Vitamin C 1 each 08/29/25 21:00 08/30/25 20:18 Vitamin B Complex/Vit C Capsule PO 1 each HS VIVIANE Administration Vitamin D 75 mcg 08/30/25 09:00 08/31/25 08:35 Cholecalciferol (Vitamin D3) 25 Mcg (1,000 Units) Tablet PO 75 mcg DAILY VIVIANE Administration Radiology Results: ITS Impressions Chest X-Ray 08/29/25 10:09 Impression: No acute cardiopulmonary abnormality. Hip/Pelvis X-Ray 08/29/25 10:10 Impression: Fracture detailed above Labs Labs: Laboratory Results - last 24 hr 08/30/25 08/30/25 08/30/25 11:16 12:49 19:34 WBC RBC Hgb Hct MCV MCH MCHC RDW Plt Count MPV Immature Gran % (Auto) Neut % (Auto) Lymph % (Auto) [place] % (Auto) Eos % (Auto) Baso % (Auto) Lymph # (Auto) [place] # (Auto) Eos # (Auto) Baso # (Auto) Abs Immat Gran (auto) Absolute Neuts (auto) Absolute Nucleated RBC Nucleated RBC % PT INR Sodium Potassium Chloride Carbon Dioxide Anion Gap BUN Creatinine Estim Creat Clear Calc Estimated GFR Glucose POC Capillary Glucose 117 H 100 Calcium Total Bilirubin AST ALT Alkaline Phosphatase Total Protein Albumin Blood Type A Positive Antibody Screen Negative 08/31/25 08/31/25 04:54 07:21 WBC 6.9 RBC 3.31 L Hgb 10.8 L Hct 32.3 L MCV 97.6 MCH 32.6 MCHC 33.4 RDW 13.1 Plt Count 118 L MPV 9.3 Immature Gran % (Auto) 0.4 Neut % (Auto) 73.1 Lymph % (Auto) 13.6 L Mathews % (Auto) 10.5 H Eos % (Auto) 2.0 Baso % (Auto) 0.4 Lymph # (Auto) 0.93 [place]ws # (Auto) 0.7 H Eos # (Auto) 0.1 Baso # (Auto) 0.0 Abs Immat Gran (auto) 0.03 Absolute Neuts (auto) 5.0 Absolute Nucleated RBC 0.000 Nucleated RBC % 0.0 PT 33.6 H D INR 3.5 Sodium 127 L Potassium 3.9 Chloride 100 Carbon Dioxide 24 Anion Gap 3 L BUN 13 Creatinine 0.86 Estim Creat Clear Calc 63 Estimated GFR > 60 Glucose 99 POC Capillary Glucose 107 H Calcium 7.7 L Total Bilirubin 0.5 AST 25 ALT 13 Alkaline Phosphatase 69 Total Protein 5.8 L Albumin 3.2 L Blood Type Antibody Screen
[2025-08-31 09:21] LABS: Thyroid Stimulating Hormone Reflex 1.010 uIU/mL (0.465-4.68)
[2025-08-31 09:30] LABS: Vitamin B12 483.0 pg/mL (239-931)
[2025-08-31 12:07] LABS: Iron 40 ug/dL (49-181)
[2025-08-31 12:16] LABS: Percent Iron Saturation 17 % (20-50)
--- NOTE | 2025-08-31 13:54 | WPDANESPN ---
Anes - Prog Note Post-Op Date/Time: 08/31/25 13:54 Cardiovascular status: normal Respiratory status: normal Airway patency: baseline Mental status: baseline Vital Signs: Last Vital Signs Temp 36.4 C 08/31/25 09:23 Pulse 73 08/31/25 09:23 Resp 14 08/31/25 09:23 BP 128/75 08/31/25 09:23 Pulse Ox 95 08/31/25 09:23 O2 Del Method Room Air 08/31/25 08:00 O2 Flow Rate 8 08/30/25 18:56 Pain Score (VAS): 2 I/O: Intake & Output 08/30/25 08/31/25 08/31/25 23:59 07:59 15:59 Intake Total 600 150 240 Output Total 400 200 Balance 200 -50 240 Laboratory Tests 08/31/25 04:54 08/31/25 04:54 08/30/25 08/31/25 08/31/25 19:34 04:53 04:54 WBC 6.9 RBC 3.31 L Hgb 10.8 L Hct 32.3 L MCV 97.6 MCH 32.6 MCHC 33.4 RDW 13.1 Plt Count 118 L MPV 9.3 Immature Gran % (Auto) 0.4 Neut % (Auto) 73.1 Lymph % (Auto) 13.6 L [place] % (Auto) 10.5 H Eos % (Auto) 2.0 Baso % (Auto) 0.4 Lymph # (Auto) 0.93 [place] # (Auto) 0.7 H Eos # (Auto) 0.1 Baso # (Auto) 0.0 Abs Immat Gran (auto) 0.03 Absolute Neuts (auto) 5.0 Absolute Nucleated RBC 0.000 Nucleated RBC % 0.0 PT 33.6 H D INR 3.5 Sodium 127 L Potassium 3.9 Chloride 100 Carbon Dioxide 24 Anion Gap 3 L BUN 13 Creatinine 0.86 Estim Creat Clear Calc 63 Estimated GFR > 60 Glucose 99 POC Capillary Glucose 100 Serum Osmolality Pending Calcium 7.7 L Iron 40 L TIBC 231 L % Saturation 17 L Ferritin Total Bilirubin 0.5 AST 25 ALT 13 Alkaline Phosphatase 69 Total Protein 5.8 L Albumin 3.2 L Vitamin B12 483.0 Folate 15.2 TSH (Reflex) 1.010 Random Cortisol 14.00 08/31/25 08/31/2525 07:21 11:21 13:33 WBC RBC Hgb Hct MCV MCH MCHC RDW Plt Count MPV Immature Gran % (Auto) Neut % (Auto) Lymph % (Auto) [place] % (Auto) Eos % (Auto) Baso % (Auto) Lymph # (Auto) [place] # (Auto) Eos # (Auto) Baso # (Auto) Abs Immat Gran (auto) Absolute Neuts (auto) Absolute Nucleated RBC Nucleated RBC % PT INR Sodium Potassium Chloride Carbon Dioxide Anion Gap BUN Creatinine Estim Creat Clear Calc Estimated GFR Glucose POC Capillary Glucose 107 H 152 H Serum Osmolality Calcium Iron TIBC % Saturation Ferritin Pending Total Bilirubin AST ALT Alkaline Phosphatase Total Protein Albumin Vitamin B12 Folate TSH (Reflex) Random Cortisol Patient Feedback: Patient satisfied with anesthetic care.
[2025-08-31 14:37] LABS: Ferritin 87.10 ng/mL (11.1-264)
[2025-08-31] MEDS: ASCORBIC ACID 500 MG TABLET 1000 MG PO (20:27)
[2025-08-31] MEDS: MONTELUKAST SODIUM 10 MG TABLET PO (20:27)
[2025-08-31] MEDS: TELMISARTAN 40 MG TABLET PO (20:27)
[2025-08-31] MEDS: VITAMIN B COMPLEX/VIT C CAPSULE 1 EACH PO (20:27)
[2025-08-31] MEDS: LATANOPROST 0.005% OP SOLN 2.5 ML BTL 1 DROP EACH EYE (20:28)
[2025-09-01] VITALS (7 sets, daily range): BP systolic 107–124; BP diastolic 43–52; PULSE 50–68; RESP 14–20; TEMP 36.4–37.1; O2SAT 97–100; BMI 10.0
[2025-09-01 06:12] LABS: Hematocrit 30.0 % (42.0-52.0); Hemoglobin 10.0 g/dL (14.0-18.0); Immature Platelet Fraction Pct 3.6 % (0.9-11.2); Mean Corpuscular HGB Conc 33.3 g/dl (32-36); Mean Corpuscular Hemoglobin 32.7 pg (26-34); Mean Corpuscular Volume 98.0 fl (80-100); Platelet Count Result 144 k/mm3 (150-375); Red Blood Count 3.06 M/mm3 (4.6-6.20); White Blood Count 6.1 K/mm3 (4.5-10.0)
[2025-09-01 06:40] LABS: Alanine Aminotransferase 9 U/L (6-50); Albumin Level 3.0 g/dL (3.5-5.1); Alkaline Phosphatase 60 U/L (38-126); Anion Gap 4 mmol/L (4-12); Aspartate Amino Transferase 22 U/L (17-59); Bilirubin,Total 0.4 mg/dL (0.2-1.3); Blood Urea Nitrogen 22 mg/dL (9-20); Calcium 7.6 mg/dL (8.4-10.2); Carbon Dioxide 25 mmol/L (22-30); Chloride 101 mmol/L (98-107); Estimated CRCL calculation 49 ml/min; Estimated Glomerular Filt Rate > 60; Glucose 118 mg/dL (65-110); Potassium 3.9 mmol/L (3.4-5.0); Sodium 130 mmol/L (137-145); Total Protein 5.7 g/dL (6.3-8.2)
[2025-09-01] MEDS: LORATADINE 10 MG TABLET PO (08:55)
[2025-09-01] MEDS: CELECOXIB 200 MG CAPSULE PO (08:55)
[2025-09-01] MEDS: FAMOTIDINE 20 MG TABLET PO ×2 (08:55→20:53)
[2025-09-01] MEDS: PRIMIDONE 250 MG TABLET PO ×3 (08:56→16:06)
[2025-09-01] MEDS: SENNA/DOCUSATE SODIUM TABLET 2 TAB PO ×2 (08:59→16:06)
[2025-09-01] MEDS: CHOLECALCIFEROL (VITAMIN D3) 25 MCG (1,000 UNITS) TABLET 75 MCG PO (08:59)
[2025-09-01] MEDS: AMIODARONE HCL 200 MG TABLET PO (09:00)
[2025-09-01] MEDS: DORZOLAMIDE/TIMOLOL OPHTH SOL 10 ML BOTTLE 1 DROP EACH EYE ×2 (09:04→20:53)
[2025-09-01] MEDS: FLUTICASONE PROPIONATE 0.05% NA SPR 16 GM BTL (*BKC) 2 SPRAY NASAL (09:05)
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
[2025-09-01] MEDS: FUROSEMIDE 20 MG TABLET PO (09:07)
[2025-09-01] MEDS: oxyCODONE/ACETAMINOPHEN (*CRX) 10-325 MG TABLET 1 TAB PO ×2 (09:31→16:04)
[2025-09-01 09:40] LABS: INR 2.2; Prothrombin Time 23.8 Seconds (11.1-14.7)
[2025-09-01] MEDS: ALBUTEROL SULFATE (*SP) AEROSOL 1 PUFF INHALATION ×2 (14:38→18:26)
[2025-09-01] MEDS: WARFARIN (*PBKC) 5 MG TABLET PO (16:06)
[2025-09-01] MEDS: ASCORBIC ACID 500 MG TABLET 1000 MG PO (20:52)
[2025-09-01] MEDS: LATANOPROST 0.005% OP SOLN 2.5 ML BTL 1 DROP EACH EYE (20:53)
[2025-09-01] MEDS: MONTELUKAST SODIUM 10 MG TABLET PO (20:53)
[2025-09-01] MEDS: VITAMIN B COMPLEX/VIT C CAPSULE 1 EACH PO (20:53)
[2025-09-01] MEDS: TELMISARTAN 40 MG TABLET PO (20:53)
[2025-09-02 06:00] VITALS: BP 119/48; PULSE 80; RESP 14; TEMP 36.5; O2SAT 95
[2025-09-02 06:15] LABS: Hematocrit 29.6 % (42.0-52.0); Hemoglobin 9.5 g/dL (14.0-18.0); Mean Corpuscular HGB Conc 32.1 g/dl (32-36); Mean Corpuscular Hemoglobin 32.5 pg (26-34); Mean Corpuscular Volume 101.4 fl (80-100); Platelet Count Result 148 k/mm3 (150-375); Red Blood Count 2.92 M/mm3 (4.6-6.20); White Blood Count 5.4 K/mm3 (4.5-10.0)
[2025-09-02 06:26] LABS: INR 1.5; Prothrombin Time 18.0 Seconds (11.1-14.7)
[2025-09-02 06:32] LABS: Alanine Aminotransferase 9 U/L (6-50); Albumin Level 3.0 g/dL (3.5-5.1); Alkaline Phosphatase 52 U/L (38-126); Anion Gap 2 mmol/L (4-12); Aspartate Amino Transferase 25 U/L (17-59); Bilirubin,Total 0.5 mg/dL (0.2-1.3); Blood Urea Nitrogen 25 mg/dL (9-20); Calcium 7.7 mg/dL (8.4-10.2); Carbon Dioxide 24 mmol/L (22-30); Chloride 104 mmol/L (98-107); Estimated CRCL calculation 51 ml/min; Estimated Glomerular Filt Rate > 60; Glucose 110 mg/dL (65-110); Potassium 4.5 mmol/L (3.4-5.0); Sodium 130 mmol/L (137-145); Total Protein 5.7 g/dL (6.3-8.2)
[2025-09-02] MEDS: PRIMIDONE 250 MG TABLET PO ×3 (09:33→16:58)
[2025-09-02] MEDS: CHOLECALCIFEROL (VITAMIN D3) 25 MCG (1,000 UNITS) TABLET 75 MCG PO (09:33)
[2025-09-02] MEDS: FAMOTIDINE 20 MG TABLET PO ×2 (09:33→20:29)
[2025-09-02] MEDS: LORATADINE 10 MG TABLET PO (09:33)
[2025-09-02] MEDS: AMIODARONE HCL 200 MG TABLET PO (09:33)
[2025-09-02] MEDS: SENNA/DOCUSATE SODIUM TABLET 2 TAB PO ×2 (09:33→16:59)
[2025-09-02] MEDS: FLUTICASONE PROPIONATE 0.05% NA SPR 16 GM BTL (*BKC) 2 SPRAY NASAL (09:34)
[2025-09-02] MEDS: DORZOLAMIDE/TIMOLOL OPHTH SOL 10 ML BOTTLE 1 DROP EACH EYE ×2 (09:34→17:01)
[2025-09-02] MEDS: oxyCODONE/ACETAMINOPHEN (*CRX) 10-325 MG TABLET 1 TAB PO ×3 (10:06→23:08)
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
[2025-09-02] MEDS: ALBUTEROL SULFATE (*SP) AEROSOL 1 PUFF INHALATION ×2 (11:55→20:44)
[2025-09-02 14:00] VITALS: BP 144/48; PULSE 55; RESP 12; TEMP 36.8; O2SAT 98
[2025-09-02] MEDS: WARFARIN (*PBKC) 5 MG TABLET PO (16:59)
[2025-09-02 20:00] VITALS: PULSE 53; RESP 17; O2SAT 100
[2025-09-02] MEDS: LATANOPROST 0.005% OP SOLN 2.5 ML BTL 1 DROP EACH EYE (20:28)
[2025-09-02] MEDS: TELMISARTAN 40 MG TABLET PO (20:29)
[2025-09-02] MEDS: ASCORBIC ACID 500 MG TABLET 1000 MG PO (20:29)
[2025-09-02] MEDS: VITAMIN B COMPLEX/VIT C CAPSULE 1 EACH PO (20:29)
[2025-09-02] MEDS: MONTELUKAST SODIUM 10 MG TABLET PO (20:29)
[2025-09-02 20:44] VITALS: PULSE 55; RESP 20
[2025-09-02 20:57] VITALS: BP 141/58; PULSE 53; RESP 17; TEMP 36.5; O2SAT 100
[2025-09-03] VITALS (7 sets, daily range): BP systolic 132–151; BP diastolic 50–61; PULSE 52–59; RESP 16–17; TEMP 36.3; O2SAT 94–100; BMI 11.0
[2025-09-03] MEDS: oxyCODONE/ACETAMINOPHEN (*CRX) 10-325 MG TABLET 1 TAB PO ×2 (06:13→12:16)
[2025-09-03 06:43] LABS: Hematocrit 31.7 % (42.0-52.0); Hemoglobin 10.4 g/dL (14.0-18.0); Mean Corpuscular HGB Conc 32.8 g/dl (32-36); Mean Corpuscular Hemoglobin 32.6 pg (26-34); Mean Corpuscular Volume 99.4 fl (80-100); Platelet Count Result 183 k/mm3 (150-375); Red Blood Count 3.19 M/mm3 (4.6-6.20); White Blood Count 4.9 K/mm3 (4.5-10.0)
[2025-09-03 06:51] LABS: INR 1.3; Prothrombin Time 16.0 Seconds (11.1-14.7)
[2025-09-03 07:02] LABS: Alanine Aminotransferase 21 U/L (6-50); Albumin Level 3.2 g/dL (3.5-5.1); Alkaline Phosphatase 69 U/L (38-126); Anion Gap 2 mmol/L (4-12); Aspartate Amino Transferase 43 U/L (17-59); Bilirubin,Total 0.6 mg/dL (0.2-1.3); Blood Urea Nitrogen 22 mg/dL (9-20); Calcium 7.8 mg/dL (8.4-10.2); Carbon Dioxide 27 mmol/L (22-30); Chloride 102 mmol/L (98-107); Estimated CRCL calculation 58 ml/min; Estimated Glomerular Filt Rate > 60; Glucose 107 mg/dL (65-110); Potassium 4.1 mmol/L (3.4-5.0); Sodium 131 mmol/L (137-145); Total Protein 6.1 g/dL (6.3-8.2)
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
[2025-09-03] MEDS: ALBUTEROL SULFATE (*SP) AEROSOL 1 PUFF INHALATION (09:01)
[2025-09-03] MEDS: SENNA/DOCUSATE SODIUM TABLET 2 TAB PO (10:47)
[2025-09-03] MEDS: CHOLECALCIFEROL (VITAMIN D3) 25 MCG (1,000 UNITS) TABLET 75 MCG PO (10:48)
[2025-09-03] MEDS: LORATADINE 10 MG TABLET PO (10:48)
[2025-09-03] MEDS: FAMOTIDINE 20 MG TABLET PO (10:49)
[2025-09-03] MEDS: PRIMIDONE 250 MG TABLET PO ×2 (10:49→13:57)
[2025-09-03] MEDS: AMIODARONE HCL 200 MG TABLET PO (10:55)
[2025-09-03] MEDS: FLUTICASONE PROPIONATE 0.05% NA SPR 16 GM BTL (*BKC) 2 SPRAY NASAL (11:15)
[2025-09-03] MEDS: DORZOLAMIDE/TIMOLOL OPHTH SOL 10 ML BOTTLE 1 DROP EACH EYE (11:15)
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
[2025-09-07 01:07] LABS: Osmolality, Urine 700 mOsmol/kg (.)
[2025-09-08 05:08] LABS: Osmolality, Serum 266 mOsmol/kg (280-301)
--- NOTE | 2025-09-27 11:55 | PM.CNOR ---
Assessment and Plan Assessment and plan (1) Intertrochanteric fracture of left femur: Code(s): S72.142A - Displaced intertrochanteric fracture of left femur, initial encounter for closed fracture Status: Acute Assessment and Plan: PRISCA WAS ADMITTED [facility] AFTER SUSTAINING A FALL TO HIS LEFT HIP. HE HAD PAIN NAD SWELLING AND INABILITY TO BEAR WEIGHT ON THE LEFT LOWER EXTREMITY. HE DENIED AND LOC OR OTHER EXTREMITY OR NECK OR BACK PAIN. HE HAS DEMENTIA AND HIS HISTORY IS CONFUSING. HE HAS A PAST HISTORY OF RIGHT HIP FRACTURE TREATED WITH HEMIARTHROPLASTY HISTORY, EXAM AND RADIOGRAPHS REVIEWED WITH THE PATIENT. REFERRING PHYSICIAN RECORDS AND IMAGES REVIEWED. CONDITION, NATURE, ETIOLOGY AND COURSE OF NATURAL HISTORY REVIEWED. CONSERVATIVE AND OPERATIVE TREATMENT OPTIONS REVIEWED WELL THE RISKS AND BENEFITS OF EACH. XRAYS SHOW DISPLACED LEFT INTERTROCHANTERIC FEMUR FRACTURE. RECOMMEND INSERTION OF IM BEBETO LEFT FEMUR. DISCUSSED NONOPERATIVE AND OPERATIVE TREATMENT OPTIONS WITH THE PATIENT. THE PATIENT'S QUESTIONS WERE ANSWERED. THE PATIENT DESIRES OPERATIVE TREATMENT. DISCUSSED __INSERTION OF INTRAMEDULLARY BEBETO LEFT FEMUR . RISKS OF SURGERY INCLUDING BUT NOT LIMITED TO NEUROVASCULAR DAMAGE, WOUND COMPLICATIONS, BLOOD CLOT, PULMONARY EMBOLUS, STROKE, [place], ANESTHETIC RISKS UP TO AND INCLUDING WERE REVIEWED. CONTINUED PAIN AND POSSIBLE DYSFUNCTION WERE EXPLAINED. NO GUARANTEES WERE OFFERED. THE PATIENT UNDERSTANDS AND WISHES TO PROCEED. History of Present Illness HPI Consult date: 09/27/25 Chief complaint: Left Hip Fracture Narrative: PRISCA WAS ADMITTED [facility] AFTER SUSTAINING A FALL TO HIS LEFT HIP. HE HAD PAIN NAD SWELLING AND INABILITY TO BEAR WEIGHT ON THE LEFT LOWER EXTREMITY. HE DENIED AND LOC OR OTHER EXTREMITY OR NECK OR BACK PAIN. HE HAS DEMENTIA AND HIS HISTORY IS CONFUSING. HE HAS A PAST HISTORY OF RIGHT HIP FRACTURE TREATED WITH HEMIARTHROPLASTY Review of Systems Review of Systems: All systems reviewed & are unremarkable except as noted in HPI and below PMFSH Past Medical History Medical History Hyponatremia Pancreatic lesion Glaucoma Seasonal allergies Chronic anticoagulation Chronic diastolic (congestive) heart failure Degenerative disc disease History of hemorrhoids Asthma Anxiety Hypertension Spondylosis of lumbar spine Anemia Pneumonia due to COVID-19 virus Arthritis Hearing loss Chronic atrial fibrillation Essential tremor Mixed hyperlipidemia Type 2 diabetes mellitus without complication, without long-term current use of insulin Surgical History Surgical History History of tonsillectomy History of cataract extraction History of back surgery History of hip surgery History of cardiac catheterization Cervical vertebral fusion Family History Family History Father Cerebrovascular accident Sibling Asthma Mother Brain aneurysm Other Diabetes mellitus Family history of arthritis Hypertension Social History Social History Social History: patient is a nonsmoker and never has smoked. He does not use alcohol or drugs. 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 His power of personal injury attorney is Jia Leon, daughter. He would like to be a full code Smoking status: Never smoker Tobacco type: smokeless tobacco Smokeless tobacco user: chewing tobacco Second hand tobacco smoke exposure: No Alcohol intake: never Substance use: never Substance use type: does not use Lack of Transportation: No Lack of Food: Never True Current Housing: I Have Housing Concerned About Future Housing: No Difficulty Paying Gas/Electric Bills: No Difficulty Paying for Meds: No Currently Unemployed: No Education: High School Diploma/GED Difficulty w/ Childcare or Family Care: No Living arrangements: with family Occupation/Education: retired Gender identity (if verbalized by the patient): Male Sexual Orientation (if Verbalized by the Patient): Straight or Heterosexual Spiritual care concerns: No Agree to blood products: Yes Meds Home Medications and Allergies Home Medications ?Medication ?Instructions ?Recorded ?Confirmed ?Type latanoprost 0.005 % eye drops 1 drop ophthalmic (eye) HS 03/28/20 09/10/25 History B-complex with vitamin C 1 tablet PO HS 05/09/20 09/10/25 History ascorbic acid (vitamin C) 1,000 mg 1 g PO HS 05/09/20 09/10/25 History tablet cholecalciferol (vitamin D3) 75 75 mcg PO DAILY 05/07/21 09/10/25 History mcg (3,000 unit) tablet albuterol sulfate 90 mcg/actuation 1 - 2 inh inhalation Q4H PRN 04/06/25 09/10/25 Rx aerosol inhaler shortness of breath or wheezing #8.5 grams telmisartan 40 mg tablet 40 mg PO HS 06/08/25 09/10/25 History Held on 09/19/25. Instructions: with until you see PCP fluticasone propionate 50 2 spray intranasal BID PRN 09/03/25 09/10/25 History mcg/actuation nasal chronic seasonal allergic rhinitis spray,suspension (Flonase Allergy Relief) albuterol sulfate 2.5 mg/3 mL 2.5 mg inhalation Q4H PRN 09/10/25 09/10/25 History (0.083 %) solution for nebulization shortness of breath or wheezing bisacodyl 5 mg tablet,delayed 5 mg PO DAILY 09/10/25 09/10/25 History release loratadine 10 mg capsule (Allergy 10 mg PO DAILY 09/10/25 09/10/25 History Relief (loratadine)) losartan 25 mg tablet 25 mg PO HS 09/10/25 09/10/25 History Held on 09/19/25. Instructions: wait until you see a PCP methocarbamol 500 mg tablet 500 mg PO QID 09/10/25 09/10/25 History Held on 09/19/25. Instructions: wait until you see a PCP multivitamin with minerals (DAILY 1 tablet PO BID 09/10/25 09/10/25 History VITAMIN FORMULA-MINERALS tablet) vitamin B complex 1 cap PO HS 09/10/25 09/10/25 History Home Medication 1 ea EACH EYE 0900,1700 ##0 09/19/25 Rx acetaminophen 325 mg tablet 650 mg (2 x 325 mg) PO Q6H PRN 09/19/25 Rx Mild Pain (1-3) Or Fever #0 tabs amiodarone 200 mg tablet 200 mg PO DAILY 30 days #30 tabs 09/19/25 Rx amoxicillin 875 mg-potassium 1 tablet PO Q12H #14 tabs 09/19/25 Rx clavulanate 125 mg tablet atorvastatin 10 mg tablet 10 mg PO QTUTHSASU 30 days #18 tabs 09/19/25 Rx calcium carbonate 200 mg (0.4 x 500 mg calcium 09/19/25 Rx (1,250 mg)) PO Q6H PRN Indigestion #0 tabs fexofenadine 180 mg tablet 180 mg PO DAILY 30 days #30 tabs 09/19/25 Rx (Kat Allergy) furosemide 20 mg tablet 20 mg PO DAILY #30 tabs 09/19/25 Rx montelukast 10 mg tablet 10 mg PO QHS #30 tabs 09/19/25 Rx primidone 250 mg tablet 250 mg PO TID #90 tabs 09/19/25 Rx vit C 250 mg-vit E 90 mg-zinc 40 1 tablet PO BID 30 days #60 caps 09/19/25 Rx mg-copper 1 ep-ghnuua-knopdh capsule (PreserVision AREDS-2) naloxone 4 mg/actuation nasal 1 spray intranasal Q2-3M PRN 09/20/25 Rx spray (Narcan) opioid overdose #2 ea oxycodone-acetaminophen 5 mg-325 1 tablet PO Q8H PRN severe pain 09/20/25 Rx mg tablet (Percocet) (scale score 7-10) #7 tabs warfarin 5 mg tablet 3 mg (0.6 x 5 mg) PO DAILY #5 tabs 09/20/25 Rx Allergies Allergy/AdvReac Type Severity Reaction Status Date / Time naproxen Allergy Severe SWELLING/SO Verified 09/10/25 17:05 B Exam Back/Spine/Pelvis: Cervical Spine: normal cervical lordosis, No cervical muscular tenderness and No Cervical spine tenderness Thoracic/Lumbar Spine: thoracic and lumbar spine normal to inspection, No thoracic spinal tenderness and No lumbar spinal tenderness Sacroiliac joints: bilaterally nontender Coccyx: no tenderness Extrem: Right lower extremity: hip/thigh Details: normal to inspection and normal ROM; no tenderness and no swelling Left lower extremity: hip/thigh Details: abnormal to inspection, tenderness, swelling, abnormal ROM Details: pain with active ROM Details: with ADduction, with ABduction, with extension, with flexion, with internal rotation and with external rotation and pain with passive ROM Details: with ADduction, with ABduction, with extension, with flexion, with internal rotation and with external rotation, ecchymosis, crepitus and deformity Location: of the hip, knee Details: normal to inspection and normal ROM; no tenderness and no swelling, lower leg Details: normal to inspection and palpable cord; no localized swelling, ankle Details: normal to inspection; no tenderness and no swelling and foot Details: normal capillary refill and vascular exam Details: dorsalis pedis pulse present and posterior tibial pulse present Results Labs 09/03/25 06:14 09/03/25 06:14 Labs: H & H 08/29/25 08/30/25 08/31/25 Range/Units 09:16 05:13 04:54 Hgb 13.9 L 11.6 L 10.8 L (14.0-18.0) g/dL Hct 41.4 L 34.8 L 32.3 L (42.0-52.0) % 09/01/25 09/02/25 09/03/25 Range/Units 05:16 05:57 06:14 Hgb 10.0 L 9.5 L 10.4 L (14.0-18.0) g/dL Hct 30.0 L 29.6 L 31.7 L (42.0-52.0) % Coagulation 08/29/25 08/30/25 08/31/25 Range/Units 09:16 05:13 04:54 INR 2.1 2.7 3.5 09/01/25 09/02/25 09/03/25 Range/Units 09:24 05:57 06:14 INR 2.2 1.5 1.3 All other labs normal.
== END 2025-09-03 16:35 | DRG 481 ==
LOC: ANHED 12:36 → ANH3MEDSUR 14:46
PROVIDERS: Nurse Practitioner Adult Health; Orthopaedic Surgery; Admitting Provider Internal Medicine; Emergency Provider Emergency Medicine; PCP Nurse Practitioner Family; Visit Provider Student in an Organized Health Care Education/Training Program
PROC: (CPT 27245; principal; 2025-08-30 13:30)
DX: S72.142A Displaced intertrochanteric fracture of left femur, initial encounter for closed fracture (principal); E87.1 Hypo-osmolality and hyponatremia; I48.20 Chronic atrial fibrillation, unspecified; I50.32 Chronic diastolic (congestive) heart failure; I11.0 Hypertensive heart disease with heart failure; M47.896 Other spondylosis, lumbar region; G25.0 Essential tremor; E11.9 Type 2 diabetes mellitus without complications; K59.09 Other constipation; R33.9 Retention of urine, unspecified; F41.9 Anxiety disorder, unspecified; E78.2 Mixed hyperlipidemia; Z96.641 Presence of right artificial hip joint; W01.0XXA Fall on same level from slipping, tripping and stumbling without subsequent striking against object, initial encounter; Z91.81 History of falling; Z98.1 Arthrodesis status; Z79.01 Long term (current) use of anticoagulants; Z79.51 Long term (current) use of inhaled steroids; Z86.16 Personal history of COVID-19
CPT/HCPCS: 36415; 71045; 73502; 74018; 80053; 82533; 82607; 82728; 82746; 82948; 83540; 83550; 83930; 83935; 84300; 84443; 85025; 85027; 85055; 85610; 85730; 86850; 86900; 86901; 93005; 94640; 96374; 96375; 97110; 97116; 97162; 97165; 97530; 97535; 99199; 99285; J0690; A9270; C1713; J1171; J2003; J2270; J2405; J2704; J3010; J3290; J7030; J7120

== ENCOUNTER 2025-09-10 14:00 | Inpatient (IN) | payer MEDICARE, SELFPAY ==
[2025-09-10] VITALS (11 sets, daily range): BP systolic 111–161; BP diastolic 50–82; PULSE 53–78; RESP 12–20; TEMP 36.6–37.2; O2SAT 95–100; BMI 31.1
--- NOTE | ~2025-09-10 | XR_ITS ---
EXAMINATION: XR chest 1V, 09/10/2025 14:53 ORDINARY SEAMAN HISTORY: chest pressure, nausea COMPARISON: No comparisons available. Technique: Single view. Findings: Mild pulmonary venous congestion. No pneumothorax. Mild cardiomegaly. Mediastinal and hilar contours are within normal limits. Bony thorax no acute abnormality. Minimal basilar areas of linear atelectasis. Impression: Minimal CHF Reviewed, dictated and finalized at location [facility] Impression: Minimal CHF
--- NOTE | 2025-09-10 14:07 | ECG_ITS ---
Test Date: 2025-09-10 14:06:56 Measurements Intervals [place] Rate: 69 P: 0 CT: 0 QRS: 7 QRSD: 86 T: 45 QT: 370 QTc: 398 Interpretive Statements ATRIAL FIBRILLATION LOW QRS VOLTAGE [QRS DEFLECTION < 0.5/1.0 mV IN LIMB/CHEST LEADS] Compared to ECG 08/29/2025 09:02:01 Sinus bradycardia no longer present Electronically Signed On 09-10-2025 14:23:29 BACK GRINDER by Sallie Marroquin M.D.
--- NOTE | 2025-09-10 14:19 | ED.CHESTPAIN ---
HPI - Chest Pain General Chief Complaint: Chest Pain <CARMEN Christianson Last Filed: 09/10/25 15:52> Stated Complaint: afib, B/L LE swelling <CARMEN Christianson Last Filed: 09/10/25 15:52> Time Seen by Provider: 09/10/25 14:12 <CARMEN Christianson Last Filed: 09/10/25 15:52> Source: patient and old records reviewed <CARMEN Christianson Last Filed: 09/10/25 15:52> Mode of arrival: EMS <CARMEN Christianson Last Filed: 09/10/25 15:52> Limitations: no limitations <CARMEN Christianson Last Filed: 09/10/25 15:52> History of Present Illness HPI narrative: Patient is an 89 y/o male, with PMH of AFIB on warfarin/amiodarone, who presents to the ED via EMS with report of chest pain. Patient is currently residing at [facility] after recent left hip replacement in the middle of August. Reports he has had issues with swelling of his lower extremities recently. Had been taking Lasix 20 mg Thursday for the past few months d/t issues with his Sodium levels. States today he was sitting for prolonged period in his wheelchair and noticed increased swelling of his BLE. He was given a dose of 40 mg Lasix today. Around 1:00 p.m. after 2 rounds of OT and 1 round of PT, patient began having pain/tension throughout his R sided chest. Became SOB, dizzy, nauseous. EMS was called. Patient states chest pain lasted approximately 20 minutes before resolving on its own. Denies current pain. Sees Dr. Pisano. Family reports patient had recent blood work which showed he had evidence of congestive heart failure. He denies ever being diagnosed with this previously. Family reports that patient had issues urinating yesterday due to swelling and had a Wadsworth catheter placed at the rehab facility. <CARMEN Christianson Last Filed: 09/10/25 15:52> Related Data Home Medications: Home Medications ?Medication ?Instructions ?Recorded ?Confirmed ?Last Taken ?Type latanoprost 0.005 % eye drops 1 drop ophthalmic (eye) HS 03/28/20 09/10/25 09/09/25 History B-complex with vitamin C 1 tablet PO HS 05/09/20 09/10/25 09/02/25 History Held on 09/10/25. Instructions: Patient no longer taking amiodarone 200 mg tablet 200 mg PO DAILY 05/09/20 09/10/25 09/10/25 History ascorbic acid (vitamin C) 1,000 mg 1 g PO HS 05/09/20 09/10/25 09/09/25 History tablet cholecalciferol (vitamin D3) 75 75 mcg PO DAILY 05/07/21 09/10/25 09/10/25 History mcg (3,000 unit) tablet warfarin 5 mg tablet 5 mg PO DAILY 04/06/25 09/10/25 09/09/25 History fexofenadine 180 mg tablet 180 mg PO DAILY 06/08/25 09/10/25 09/03/25 History (Kat Allergy) Held on 09/10/25. Instructions: Patient no longer taking telmisartan 40 mg tablet 40 mg PO HS 06/08/25 09/10/25 09/02/25 History Held on 09/10/25. Instructions: Patient no longer taking dorzolamide 22.3 mg-timolol 6.8 1 drp EACH EYE Q12H 08/29/25 09/10/25 09/10/25 History mg/mL eye drops furosemide 20 mg tablet 20 mg PO QMWF 08/29/25 09/10/25 09/08/25 History vit C 250 mg-vit E 90 mg-zinc 40 1 tablet PO BID 08/29/25 09/10/25 09/03/25 History mg-copper 1 [id number] capsule (PreserVision AREDS-2) Held on 09/10/25. Instructions: Patient no longer taking atorvastatin 10 mg tablet 10 mg PO [id number] 09/03/25 09/10/25 09/10/25 History buspirone 5 mg tablet 5 mg PO BID 09/03/25 09/10/25 09/03/25 History Held on 09/10/25. Instructions: Patient no longer taking fluticasone propionate 50 2 spray intranasal BID PRN 09/03/25 09/10/25 Unknown History mcg/actuation nasal chronic seasonal allergic rhinitis spray,suspension (Flonase Allergy Relief) albuterol sulfate 2.5 mg/3 mL 2.5 mg inhalation Q4H PRN 09/10/25 09/10/25 Unknown History (0.083 %) solution for nebulization shortness of breath or wheezing bisacodyl 5 mg tablet,delayed 5 mg PO DAILY 09/10/25 09/10/25 Unknown History release loratadine 10 mg capsule (Allergy 10 mg PO DAILY 09/10/25 09/10/25 09/10/25 History Relief (loratadine)) losartan 25 mg tablet 25 mg PO HS 09/10/25 09/10/25 09/09/25 History methocarbamol 500 mg tablet 500 mg PO QID 09/10/25 09/10/25 09/09/25 History multivitamin with minerals (DAILY 1 tablet PO BID 09/10/25 09/10/25 09/10/25 History VITAMIN FORMULA-MINERALS tablet) vitamin B complex 1 cap PO HS 09/10/25 09/10/25 09/09/25 History <Carolyn Piper PA-C - Last Filed: 09/10/25 15:52> Allergies/Adverse Reactions: Allergies Allergy/AdvReac Type Severity Reaction Status Date / Time naproxen Allergy Severe SWELLING/SO Verified 09/10/25 17:05 B <Carolyn Piper PA-C - Last Filed: 09/10/25 15:52> Review of Systems Review of Systems: All systems reviewed & are unremarkable except as noted in HPI. <Carolyn Piper PA-C - Last Filed: 09/10/25 15:52> All systems reviewed & are unremarkable except as noted in HPI and below <Carolyn Piper PA-C - Last Filed: 09/10/25 15:52> [facility] Past Medical History Medical History: Medical History (Updated 09/10/25 @ 16:18 by Hattie Alvarez APRN) Hyponatremia Pancreatic lesion Glaucoma Seasonal allergies Chronic anticoagulation Chronic diastolic (congestive) heart failure Degenerative disc disease History of hemorrhoids Asthma Anxiety Hypertension Spondylosis of lumbar spine Anemia Pneumonia due to COVID-19 virus Arthritis Hearing loss Chronic atrial fibrillation Essential tremor Mixed hyperlipidemia Type 2 diabetes mellitus without complication, without long-term current use of insulin <Carolyn Piper PA-C - Last Filed: 09/10/25 15:52> Surgical History Surgical History: Surgical History History of tonsillectomy History of cataract extraction History of back surgery History of hip surgery History of cardiac catheterization Cervical vertebral fusion <CARMEN Christianson Last Filed: 09/10/25 15:52> Family History Family History: Family History (Updated 09/10/25 @ 17:09 by Tri Tesfaye RN) Father Cerebrovascular accident Sibling Asthma Mother Brain aneurysm Other Diabetes mellitus Family history of arthritis Hypertension <Carolyn Piper PA-C - Last Filed: 09/10/25 15:52> Social History Social History: Social History Social History: patient is a nonsmoker and never has smoked. He does not use alcohol or drugs. 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 His power of deputy attorney general is Jia Leon, daughter. He would like to be a full code Smoking status: Never smoker Tobacco type: smokeless tobacco Smokeless tobacco user: chewing tobacco Second hand tobacco smoke exposure: No Alcohol intake: never Substance use: never Substance use type: does not use Lack of Transportation: No Lack of Food: Never True Current Housing: I Have Housing Concerned About Future Housing: No Difficulty Paying Gas/Electric Bills: No Difficulty Paying for Meds: No Currently Unemployed: No Education: High School Diploma/GED Difficulty w/ Childcare or Family Care: No Living arrangements: with family Occupation/Education: retired Gender identity (if verbalized by the patient): Male Sexual Orientation (if Verbalized by the Patient): Straight or Heterosexual Spiritual care concerns: No Agree to blood products: Yes <CARMEN Christianson Last Filed: 09/10/25 15:52> Exam Narrative: GENERAL: Elderly, non-toxic, in no acute distress. HEAD: Normocephalic, atraumatic. RESPIRATORY: Airway patent, respirations nonlabored. Clear to auscultation bilaterally, no rales, rhonchi, wheezing. CARDIOVASCULAR: Regular rate with irregular rhythm without murmurs, rubs, or gallops. Peripheral pulses intact MUSCULOSKELETAL: Moves all extremities. No gross deformities. Diffuse pitting edema throughout BLE, symmetric rosamaria, up to thighs. No appreciable pitting edema BUE. No significant pain throughout BLE. SKIN: Warm, dry, normal color. Scattered bruising to BUE NEURO: A&O X3. Speech clear. Cranial nerves II-XII grossly intact. No ataxic movements. PSYCHIATRIC: Appropriate mood and affect. Normal interaction. <Carolyn Piper PA-C - Last Filed: 09/10/25 15:52> Course LIQUOR BLENDER/PA Physician Supervision This visit was performed by both a physician and an APC. I performed all aspects of the MDM as documented. <Daniel Peters MD - Last Filed: 09/10/25 18:01> Vital Signs Vital signs: Vital Signs Temperature 98.7 F 09/10/25 14:00 Pulse Rate 66 09/10/25 14:00 Respiratory Rate 12 09/10/25 14:00 Blood Pressure 161/59 H 09/10/25 14:00 Pulse Oximetry 98 09/10/25 14:00 Oxygen Delivery Room Air 09/10/25 14:00 Temperature 98.9 F 09/10/25 17:04 Pulse Rate 67 09/10/25 17:04 Respiratory Rate 20 09/10/25 17:04 Blood Pressure 152/65 H 09/10/25 17:04 Pulse Oximetry 100 09/10/25 17:04 Oxygen Delivery Room Air 09/10/25 16:12 <Carolyn Piper PA-C - Last Filed: 09/10/25 15:52> Vital Signs Temperature 98.7 F 09/10/25 14:00 Pulse Rate 66 09/10/25 14:00 Respiratory Rate 12 09/10/25 14:00 Blood Pressure 161/59 H 09/10/25 14:00 Pulse Oximetry 98 09/10/25 14:00 Oxygen Delivery Room Air 09/10/25 14:00 Temperature 98.9 F 09/10/25 17:04 Pulse Rate 67 09/10/25 17:04 Respiratory Rate 20 09/10/25 17:04 Blood Pressure 152/65 H 09/10/25 17:04 Pulse Oximetry 100 09/10/25 17:04 Oxygen Delivery Room Air 09/10/25 16:12 <Daniel Peters MD - Last Filed: 09/10/25 18:01> MDM - Chest Pain MDM Narrative Medical decision making narrative: Patient presented to ED with report of right-sided chest pain that began around 1:00 p.m., currently resolved, recent BLE edema. VSS upon arrival. Patient asymptomatic upon my eval. In NAD. EKG showing rate controlled AFib, no concerning ST changes. Baseline troponin 0.012. Will continue to trend. BNP elevated to 907 Chest x-ray w/ evidence of CHF INR therapeutic at 2.4. HEART 5 Basic laboratory studies are otherwise fairly unremarkable. Patient will be admitted for additional IV diuresis given amount of BLE swelling, continued trending of trop levels. Patient/family in agreement with plan. Discussed case with Hattie Alvarez NP hospitalist, accepted patient for admission. IV lasix ordered for PM <Carolyn Piper PA-C - Last Filed: 09/10/25 15:52> Medical Records Data Attestation: I reviewed the patient's medical records. <Carolyn Piper PA-C - Last Filed: 09/10/25 15:52> Lab Data Attestation: I reviewed the patient's lab results. <Carolyn Piper PA-C - Last Filed: 09/10/25 15:52> Result diagrams: 09/10/25 14:20 09/10/25 14:20 <Carolyn Piper PA-C - Last Filed: 09/10/25 15:52> Labs: Lab Results 09/10/25 09/10/25 Range/Units 14:20 15:26 WBC 8.9 (4.5-10.0) K/mm3 RBC 3.53 L (4.6-6.20) M/mm3 Hgb 11.5 L (14.0-18.0) g/dL Hct 35.5 L (42.0-52.0) % MCV 100.6 H (80-100) fl MCH 32.6 (26-34) pg MCHC 32.4 (32-36) g/dl RDW 14.3 (11.5-14.5) % Plt Count 418 H (150-375) k/mm3 MPV 8.8 (7.4-10.4) fl Immature Gran % (Auto) 0.6 H (0-0.5) % Neut % (Auto) 75.4 H (45.5-73.1) % Lymph % (Auto) 13.8 L (18.3-44.2) % Louisa % (Auto) 7.8 (2.6-8.5) % Eos % (Auto) 1.9 (0-4.4) % Baso % (Auto) 0.5 (0.2-1.2) % Lymph # (Auto) 1.22 (0.9-3.2) K/mm3 Louisa # (Auto) 0.7 H (0.1-0.6) K/mm3 Eos # (Auto) 0.2 (0-0.3) K/mm3 Baso # (Auto) 0.0 (0.0-0.1) K/mm3 Abs Immat Gran (auto) 0.05 H (0.00-0.031) K/mm3 Absolute Neuts (auto) 6.7 (1.3-6.7) K/mm3 Absolute Nucleated RBC 0.000 (0.0-0.012) K/mm3 Nucleated RBC % 0.0 (0.0-0.2) % PT 25.7 H (11.1-14.7) Seconds INR 2.4 APTT 38.8 H (22.3-36.8) Seconds Sodium 136 L (137-145) mmol/L Potassium 4.3 (3.4-5.0) mmol/L Chloride 99 (98-107) mmol/L Carbon Dioxide 28 (22-30) mmol/L Anion Gap 9 (4-12) mmol/L BUN 21 H (9-20) mg/dL Creatinine 0.81 (0.7-1.3) mg/dL Estim Creat Clear Calc 69 ml/min Estimated GFR > 60 (59 - ) Glucose 130 H (65-110) mg/dL Calcium 8.4 (8.4-10.2) mg/dL Magnesium 2.1 (1.6-2.3) mg/dL Total Bilirubin 0.6 (0.2-1.3) mg/dL AST 40 (17-59) U/L ALT 30 (6-50) U/L Alkaline Phosphatase 141 H (38-126) U/L Troponin I 0.012 (0.000-0.034) ng/mL NT-Pro-B Natriuret Pep 907 H (19.9-100) pg/mL Total Protein 6.7 (6.3-8.2) g/dL Albumin 3.5 (3.5-5.1) g/dL Lipase 40 (23-300) U/L Urine Color Yellow (Yellow) Urine Appearance Clear (Clear) Urine pH 5.5 (5.0-9.0) Ur Specific Ermine 1.008 (1.001-1.035) Urine Protein Negative (Negative) mg/dL Urine Glucose (UA) Negative (Negative) mg/dL Urine Ketones Negative (Negative) mg/dL Ur Blood (Man) 1+ H (Negative) Urine Nitrate Negative (Negative) Urine Bilirubin Negative (Negative) Urine Urobilinogen 1.0 (<2.0) mg/dL Leukocyte Esterase Rfl Negative (Negative) DAYANARA/UL Urine RBC 3-5 H (0-2) /hpf Urine WBC 0-5 (0-3) /hpf Ur Squamous Epith Cells None seen (Few) /hpf Urine Bacteria None seen /hpf Urine Casts 0-2 <Carolyn Piper PA-C - Last Filed: 09/10/25 15:52> Lab Results 09/10/25 09/10/25 Range/Units 14:20 15:26 WBC 8.9 (4.5-10.0) K/mm3 RBC 3.53 L (4.6-6.20) M/mm3 Hgb 11.5 L (14.0-18.0) g/dL Hct 35.5 L (42.0-52.0) % MCV 100.6 H (80-100) fl MCH 32.6 (26-34) pg MCHC 32.4 (32-36) g/dl RDW 14.3 (11.5-14.5) % Plt Count 418 H (150-375) k/mm3 MPV 8.8 (7.4-10.4) fl Immature Gran % (Auto) 0.6 H (0-0.5) % Neut % (Auto) 75.4 H (45.5-73.1) % Lymph % (Auto) 13.8 L (18.3-44.2) % Louisa % (Auto) 7.8 (2.6-8.5) % Eos % (Auto) 1.9 (0-4.4) % Baso % (Auto) 0.5 (0.2-1.2) % Lymph # (Auto) 1.22 (0.9-3.2) K/mm3 Louisa # (Auto) 0.7 H (0.1-0.6) K/mm3 Eos # (Auto) 0.2 (0-0.3) K/mm3 Baso # (Auto) 0.0 (0.0-0.1) K/mm3 Abs Immat Gran (auto) 0.05 H (0.00-0.031) K/mm3 Absolute Neuts (auto) 6.7 (1.3-6.7) K/mm3 Absolute Nucleated RBC 0.000 (0.0-0.012) K/mm3 Nucleated RBC % 0.0 (0.0-0.2) % PT 25.7 H (11.1-14.7) Seconds INR 2.4 APTT 38.8 H (22.3-36.8) Seconds Sodium 136 L (137-145) mmol/L Potassium 4.3 (3.4-5.0) mmol/L Chloride 99 (98-107) mmol/L Carbon Dioxide 28 (22-30) mmol/L Anion Gap 9 (4-12) mmol/L BUN 21 H (9-20) mg/dL Creatinine 0.81 (0.7-1.3) mg/dL Estim Creat Clear Calc 69 ml/min Estimated GFR > 60 (59 - ) Glucose 130 H (65-110) mg/dL Calcium 8.4 (8.4-10.2) mg/dL Magnesium 2.1 (1.6-2.3) mg/dL Total Bilirubin 0.6 (0.2-1.3) mg/dL AST 40 (17-59) U/L ALT 30 (6-50) U/L Alkaline Phosphatase 141 H (38-126) U/L Troponin I 0.012 (0.000-0.034) ng/mL NT-Pro-B Natriuret Pep 907 H (19.9-100) pg/mL Total Protein 6.7 (6.3-8.2) g/dL Albumin 3.5 (3.5-5.1) g/dL Lipase 40 (23-300) U/L Urine Color Yellow (Yellow) Urine Appearance Clear (Clear) Urine pH 5.5 (5.0-9.0) Ur Specific Ermine 1.008 (1.001-1.035) Urine Protein Negative (Negative) mg/dL Urine Glucose (UA) Negative (Negative) mg/dL Urine Ketones Negative (Negative) mg/dL Ur Blood (Man) 1+ H (Negative) Urine Nitrate Negative (Negative) Urine Bilirubin Negative (Negative) Urine Urobilinogen 1.0 (<2.0) mg/dL Leukocyte Esterase Rfl Negative (Negative) DAYANARA/UL Urine RBC 3-5 H (0-2) /hpf Urine WBC 0-5 (0-3) /hpf Ur Squamous Epith Cells None seen (Few) /hpf Urine Bacteria None seen /hpf Urine Casts 0-2 <Daniel Peters MD - Last Filed: 09/10/25 18:01> Imaging Data Attestation: I personally reviewed and interpreted this imaging study as follows: <Carolyn Piper PA-C - Last Filed: 09/10/25 15:52> Radiologist's impression: ITS Impressions Chest X-Ray 09/10/25 15:04 Impression: Minimal CHF <Carolyn Piper PA-C - Last Filed: 09/10/25 15:52> ECG Data EKG #1: Attestation: I personally reviewed and interpreted this ECG as follows: <Carolyn Piper PA-C - Last Filed: 09/10/25 15:52> ECG completion date: 09/10/25 <Carolyn Piper PA-C - Last Filed: 09/10/25 15:52> ECG completion time: 14:06 <Carolyn Piper PA-C - Last Filed: 09/10/25 15:52> EKG Interpretation: normal rate (69), atrial fibrillation, non-specific ST changes and other (low voltage) <ELIAS ChristiansonC - Last Filed: 09/10/25 15:52> Discharge Plan Discharge Clinical Impression: Swelling of both lower extremities Chest pain Qualifiers: Chest pain type: unspecified Qualified Code(s): R07.9 - Chest pain, unspecified CHF (congestive heart failure) Qualifiers: Heart failure type: unspecified Heart failure chronicity: unspecified Qualified Code(s): I50.9 - Heart failure, unspecified <Carolyn Piper PA-C - Last Filed: 09/10/25 15:52> Patient Disposition: Still a Patient <Carolyn Piper PA-C - Last Filed: 09/10/25 15:52> Condition: Stable <Carolyn Piper PA-C - Last Filed: 09/10/25 15:52> Quality HEART score for chest pain patients History: moderately suspicious <Carolyn Piper PA-C - Last Filed: 09/10/25 15:52> ECG: normal <Carolyn Piper PA-C - Last Filed: 09/10/25 15:52> Age: > or = to 65 years <Carolyn Piper PA-C - Last Filed: 09/10/25 15:52> Risk factors: > or = to 3 risk factors of atherosclerotic disease <Carolyn Piper PA-C - Last Filed: 09/10/25 15:52> Troponin: < or = to 1x normal limit <Carolyn Piper PA-C - Last Filed: 09/10/25 15:52> Heart score: 5 <Carolyn Piper PA-C - Last Filed: 09/10/25 15:52> 5 <Daniel Peters MD - Last Filed: 09/10/25 18:01>
[2025-09-10 14:25] LABS: Hematocrit 35.5 % (42.0-52.0); Hemoglobin 11.5 g/dL (14.0-18.0); Immature Granulocyte Percent A 0.6 % (0-0.5); Lymphocytes Absolute Auto 1.22 K/mm3 (0.9-3.2); Mean Corpuscular HGB Conc 32.4 g/dl (32-36); Mean Corpuscular Hemoglobin 32.6 pg (26-34); Mean Corpuscular Volume 100.6 fl (80-100); Nucleated Red Blood Cells Absolute Auto 0.000 K/mm3 (0.0-0.012); Nucleated Red Blood Cells Perc 0.0 % (0.0-0.2); Platelet Count Result 418 k/mm3 (150-375); Red Blood Count 3.53 M/mm3 (4.6-6.20); White Blood Count 8.9 K/mm3 (4.5-10.0)
--- OUTSIDE RECORDS SUMMARY | 2025-09-10 14:28 | XMS_ITS | Encounter Summary ---
Author Organization [facility] Healthcare Address [address] [place] [address] Care Team Providers Care Coupon Clerk Name Role Phone Alexander Fraire MD Primary Care Provider [phone] Santos Alanis MD, Hector Nam Primary Care Provider Willian Elise MD Primary Care Provider [phone] Jolynn Greene NP Primary Care Provider [phone] Encounter Details Date Type Department Care Team (Late st Contact Info) Description 12/18/2017 [place] Only [facility] [address] [place] [id number] Scanning, Provider Social History Tobacco Use Types Packs/Day Years Used Date Smoking Tobacco: Never Smokeless Tobacco: Former Alcohol Use Standard Drinks/Week Comments No 0 (1 standard drink = 0.6 oz pur e alcohol) Sex and Gender Information Value Date Recorded Sex Assigned at Not on file 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
--- OUTSIDE RECORDS SUMMARY | 2025-09-10 14:28 | XMS_ITS | Encounter Summary ---
Author Organization [facility] Address [address] [place] [address] Phone Care Team Providers Care Senior Solutions Architect Name Role Phone Santos Alanis MD, Hector Nam Primary Care Provider Willian Elise MD Primary Care Provider [phone] Jolynn Greene NP Primary Care Provider [phone] Encounter Details Date Type Department Care Team (Late st Contact Info) Description 08/23/2018 Telephone [facility] Cardiology [address] 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 Gender Identity Not on file Sexual Orientation Not on file documented as of this encounter Plan of Treatment Not on file documented as of this encounter Visit Diagnoses Not on filedocumented in this encounter Care Teams Senior Solutions Architect Relationship Specialty Start Date End Date Hector Graham Jr., MD [address] [place] [address] PCP - General Geriatric Medicine 06/17/18 05/27/21 Willian Elise MD [address] [facility] [address] [place] [address] PCP - General Family Medicine 05/28/21 06/21/25 Jolynn Greene NP [address] [place] [address] PCP - General Family Medicine 06/22/25 documented as of this encounter
--- OUTSIDE RECORDS SUMMARY | 2025-09-10 14:28 | XMS_ITS | Encounter Summary ---
Author Organization [facility] Healthcare Address [address] [place] [address] Care Team Providers Care Glass Crusher Name Role Phone Willian Elise MD Primary Care Provider [phone] Jolynn Greene NP Primary Care Provider [phone] Encounter Details Date Type Department Care Team (Late st Contact Info) Description 06/15/2025 [place] [facility] [address] [place] [id number] Scanning, Provider Social History Tobacco Use Types Packs/Day Years Used Date Smoking Tobacco: Never Smokeless Tobacco: Current Chew Alcohol Use Standard Drinks/Week Comments No 0 (1 standard drink = 0.6 oz pur e alcohol) Sex and Gender Information Value Date Recorded Sex Assigned at Not on file 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
--- OUTSIDE RECORDS SUMMARY | 2025-09-10 14:28 | XMS_ITS | Clinical Summary ---
Author Organization [facility] Address [address] [place] [address] Care Team Providers Care Staff Occupational Therapist Name Role Phone Hector Graham MD Primary [...] Counseling Given: Yes Comments:1/2 pouch/day PCP to rehabilitation services counselor Alcohol Use Standard Drinks/Week Comments Not [...] age to complete this topic Insurance MEDICARE [facility] Care Teams Staff Occupational Therapist Relationship Specialty Start Date End Date Hector Graham MD PCP - General INTERNAL MEDICINE 05/16/19
--- OUTSIDE RECORDS SUMMARY | 2025-09-10 14:28 | XMS_ITS | Clinical Summary ---
Author Organization [facility] Address [address] [place] [address] Care Team Providers Care Life Skills Coach Name Role Phone Hector Graham MD Primary Care Provider [phone] Allergies Active Allergy Reactions Criticality Noted Date [...] A AND B [employer]BS SUPP Care Teams Life Skills Coach Relationship Specialty Start Date End Date Hector Graham MD [address] [place] [address] PCP - General Internal Medicine 06/13/19
--- OUTSIDE RECORDS SUMMARY | 2025-09-10 14:28 | XMS_ITS | Clinical Summary ---
Author Organization [facility] [address] Address [address] [place] [address] Care Team Providers Care Still Cleaner Name Role Phone Jolynn Greene NP Primary Care Provider [phone] Allergies Active Allergy Reactions Criticality Noted Date [...] Department Care Team Description 08/21/2025 Anticoagulation Visit [facility] Cardiology [address] [place] [address] [place] [phone] Ya Rocha RN Atrial fibrillation (CMS/HCC) [I48.91] (Primary Dx); Paroxysmal atrial fibrillation (HCC) 08/18/2025 Orders Only [facility] Cardiology [address] [place] [address] [address] [place] [phone] Jaiden Pisano MD 08/04/2025 Anticoagulation Visit [facility] Cardiology [address] [facility] [address] [address] Catrachita Sheikh RN Atrial fibrillation ([facility]/HCC) [I48.91] (Primary Dx); Paroxysmal atrial fibrillation (HCC) 08/03/2025 Orders Only [facility] Cardiology [address] [place] [address] [address] [place] [phone] Jaiden Pisano MD 07/20/2025 Anticoagulation Visit [facility] Cardiology [address] [place] [address] [address] [place] [phone] Ya Rocha RN Atrial fibrillation ([facility]/HCC) [I48.91] (Primary Dx); Paroxysmal atrial fibrillation (HCC) 07/20/2025 Orders Only [facility] Cardiology [address] [place] [address] [place] [phone] Jaiden Pisano MD 07/20/2025 Telephone [facility] Cardiology [address] [place] [address] [place] [phone] Jaiden Pisano MD INR order 06/23/2025 Anticoagulation Visit [facility] Cardiology at [address] [place] [address] Itzel Fofana RN Atrial fibrillation ([facility]/HCC) [I48.91] (Primary Dx); Paroxysmal atrial fibrillation (HCC) 06/23/2025 Telephone [facility] Cardiology [address] [place] [address] [address] [place] [phone] Jaiden Pisano MD INR results 06/22/2025 10:00 AM CDT Office Visit [facility] Cardiology [address] [place] [address] [address] [place] [phone] Arleth Franklin NP Vasovagal near syncope; Hyponatremia; Edema, lower extremity; Paroxysmal atrial fibrillation (HCC); Chronic anticoagulation; Hospital discharge follow-up 06/15/2025 Orders Only [facility] Health Information Management [address] [place] [address] Scanning, Provider 06/15/2025 Anticoagulation Visit [facility] Cardiology [address] [place] [phone] Chelsie Briseno RN Atrial fibrillation [...] on file Legal Sex Male 2:49 AM [employer] OUT[employer]PER[employer] Gender Identity Not on file Sexual Orientation [...] Protime-INR (08/18/2025 12:37 PM CDT) INR 1.8(H) [employer] TechnologyCecelia Ponce Comment: Reference Range 0.9-1.1 Moderate-intensity Warfarin Therapy 2.0-3.0 Higher-intensity Warfarin Therapy 3.0-4.0 PT 18.5(H) 9.0 - 11.5 sec [employer]ecelia Ponce Comment: For additional information, please refer to http://education.Sportube/faq/CUH423 (This link is being provided for informational/ educational purposes only.) 08/18/2025 12:3 7 PM CDT 08/18/2025 12:37 PM CDT us Jaiden Pisano MD LAB BLOOD ORDERABLES Fin al Result Criterion SecurityChris Ponce [address] [place] [address] * (ABNORMAL) Protime-INR (08/03/2025 9:02 AM CDT) INR 1.7(H) Rebeca EntrenarmeCecelia Ponce Comment: Reference Range 0.9-1.1 Moderate-intensity Warfarin Therapy 2.0-3.0 Higher-intensity Warfarin Therapy 3.0-4.0 PT 17.7(H) 9.0 - 11.5 sec [facility] Comment: For additional information, please refer to http://Campanda.Sportube/faq/CSR293 (This link is being provided for informational/ educational purposes only.) 08/03/2025 9:02 AM CDT 08/03/2025 9:02 AM CDT Jaiden Pisano MD LAB BLOOD ORDERABLES Fin al Result Performing Organization Address [facility] Co de Phone Number [facility] [address] [place] [address] * (ABNORMAL) Protime-INR (07/20/2025 9:41 AM CDT) INR 1.6(H) [facility] Comment: Reference Range 0.9-1.1 Moderate-intensity Warfarin Therapy 2.0-3.0 Higher-intensity Warfarin Therapy 3.0-4.0 PT 16.1(H) 9.0 - 11.5 sec [facility] Comment: For additional information, please refer to http://Campanda.Sportube/faq/ZMQ435 (This link is being provided for informational/ educational purposes only.) 07/20/2025 9:41 AM CDT 07/20/2025 9:41 AM CDT Jaiden Pisano MD LAB BLOOD ORDERABLES Fin al Result Performing Organization Address [facility] Co de Phone Number [facility] [address] [place] [address] * (ABNORMAL) Protime-INR (06/22/2025) INR 2.20(A) 0.90 - 1.10 EXTERNAL LAB Blood us Historical Provider LAB BLOOD ORDERABLES Mitzi l Result EXTERNAL LAB * SCAN - LABS (06/15/2025) us Provider Scanning Edited Result - Final * (ABNORMAL) Protime-INR (06/15/2025) INR 1.50(A) 0.90 - 1.10 EXTERNAL INTERFACED LAB Blood us Historical Provider LAB BLOOD ORDERABLES Mitzi l Result EXTERNAL INTERFACED LAB [address] [place] [address] from Last 3 Months Insurance MEDICARE MEDICARE [facility] MEDICARE SUPPLEMENT Care Teams Still Cleaner Relationship Specialty Start Date End Date Jolynn Greene NP [address] [address] PCP - General Family Medicine 06/22/25
[2025-09-10 14:36] LABS: INR 2.4; Prothrombin Time 25.7 Seconds (11.1-14.7)
[2025-09-10 14:37] LABS: Partial Thromboplastin Time 38.8 Seconds (22.3-36.8)
[2025-09-10 14:39] LABS: Alanine Aminotransferase 30 U/L (6-50); Albumin Level 3.5 g/dL (3.5-5.1); Alkaline Phosphatase 141 U/L (38-126); Anion Gap 9 mmol/L (4-12); Aspartate Amino Transferase 40 U/L (17-59); Bilirubin,Total 0.6 mg/dL (0.2-1.3); Blood Urea Nitrogen 21 mg/dL (9-20); Calcium 8.4 mg/dL (8.4-10.2); Carbon Dioxide 28 mmol/L (22-30); Chloride 99 mmol/L (98-107); Estimated CRCL calculation 69 ml/min; Estimated Glomerular Filt Rate > 60; Glucose 130 mg/dL (65-110); Lipase 40 U/L (23-300); Magnesium 2.1 mg/dL (1.6-2.3); Potassium 4.3 mmol/L (3.4-5.0); Sodium 136 mmol/L (137-145); Total Protein 6.7 g/dL (6.3-8.2)
[2025-09-10 14:48] LABS: Troponin I 0.012 ng/mL (0.000-0.034)
[2025-09-10 14:52] LABS: NT Pro B Type Natriuretic Pept 907 pg/mL (19.9-100)
[2025-09-10 15:37] LABS: Add Urine Microscopic? YES; Appearance Urine Clear (Clear); Glucose Urine UA Negative (Negative); Leukocyte Esterase Ur Negative LEU/UL (Negative); Nitrate Urine Negative (Negative); Non Pathogenic Casts 0-2; Specific Grav Ur 1.008 (1.001-1.035)
--- NOTE | 2025-09-10 15:56 | PM.IMHP ---
H&P: HPI History of Present Illness Date/Time: 09/10/25 15:56 Chief Complaint: Chest Pressure, BLE Swelling, Shortness of Breath Narrative: 89 y/o M with PMH of recent left femoral neck fracture s/p surgery on 08/30, hyponatremia, anemia, type 2 diabetes, hypertension, chronic atrial fibrillation, chronic diastolic CHF, and tremor presents here with chest pressure, bilateral lower extremity swelling, and shortness of breath. The patient presents here from [facility] via EMS on 09/10 for further evaluation of chest pressure, shortness of breath, and bilateral lower extremity swelling. He reports onset of chest pressure today while he was sitting. He describes the chest pressure as right sided, lasted for 15 mins and resolved without intervention, and similar to his previous episodes of atrial fibrillation but more mild. Chest pressure was accompanied by mild dizziness, nausea, and shortness of breath (more so described as feeling winded). Per EMS, patient found to be in NSR upon their arrival and symptoms had resolved. Currently at [facility] for physical therapy/occupational therapy following a left hip fracture with surgical management on 08/30 at [facility]. He was noted to have increasing lower extremity swelling over the last few days, Lasix was increased to 40 mg today. Initial concern swelling was unilateral to his left lower extremity, patient reports he had a venous Doppler ordered for tomorrow to rule out a blood clot. However, swelling more so bilateral today and symmetric. Typically on 20 mg of Lasix on Mondays, Wednesdays, and Fridays due to a history of hyponatremia due to diuresis. He reports the swelling has been ongoing for the past 3 days. Swelling noted to his scrotum/genitalia which caused urinary retention yesterday for which a Wadsworth was placed. Initial VS at presentation: 98.7? F, HR 66, R 12, 161/59, and 98% on RA. ED workup showed: No leukocytosis, hemoglobin 11.5, INR 2.4, sodium 136, creatinine 0.81 and GFR >60, glucose 130, her initial troponin 0.012, BNP 907 (WNL for age), and UA showed 1+ blood/3-5 RBC otherwise unremarkable. CXR showed minimal CHF. EKG showed rate controlled AFib, rate 69, low QRS voltage. Review of Systems Review of Systems: All systems reviewed & are unremarkable except as noted in HPI and below PMFSH Past Medical History Medical History (Updated 09/10/25 @ 16:18 by Hattie Alvarez APRN) Hyponatremia Pancreatic lesion Glaucoma Seasonal allergies Chronic anticoagulation Chronic diastolic (congestive) heart failure Degenerative disc disease History of hemorrhoids Asthma Anxiety Hypertension Spondylosis of lumbar spine Anemia Pneumonia due to COVID-19 virus Arthritis Hearing loss Chronic atrial fibrillation Essential tremor Mixed hyperlipidemia Type 2 diabetes mellitus without complication, without long-term current use of insulin Surgical History Surgical History History of tonsillectomy History of cataract extraction History of back surgery History of hip surgery History of cardiac catheterization Cervical vertebral fusion Family History Family History (Updated 09/10/25 @ 17:09 by Tri Tesfaye RN) Father Cerebrovascular accident Sibling Asthma Mother Brain aneurysm Other Diabetes mellitus Family history of arthritis Hypertension Social History Social History Social History: patient is a nonsmoker and never has smoked. He does not use alcohol or drugs. 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 His power of traffic law attorney is Jia Leon, daughter. He would like to be a full code Smoking status: Never smoker Tobacco type: smokeless tobacco Smokeless tobacco user: chewing tobacco Second hand tobacco smoke exposure: No Alcohol intake: never Substance use: never Substance use type: does not use Lack of Transportation: No Lack of Food: Never True Current Housing: I Have Housing Concerned About Future Housing: No Difficulty Paying Gas/Electric Bills: No Difficulty Paying for Meds: No Currently Unemployed: No Education: High School Diploma/GED Difficulty w/ Childcare or Family Care: No Living arrangements: with family Occupation/Education: retired Gender identity (if verbalized by the patient): Male Sexual Orientation (if Verbalized by the Patient): Straight or Heterosexual Spiritual care concerns: No Agree to blood products: Yes Meds Home Medications and Allergies Home Medications ?Medication ?Instructions ?Recorded ?Confirmed ?Type latanoprost 0.005 % eye drops 1 drop ophthalmic (eye) HS 03/28/20 09/10/25 History B-complex with vitamin C 1 tablet PO HS 05/09/20 09/10/25 History Held on 09/10/25. Instructions: Patient no longer taking amiodarone 200 mg tablet 200 mg PO DAILY 05/09/20 09/10/25 History ascorbic acid (vitamin C) 1,000 mg 1 g PO HS 05/09/20 09/10/25 History tablet cholecalciferol (vitamin D3) 75 75 mcg PO DAILY 05/07/21 09/10/25 History mcg (3,000 unit) tablet acetaminophen 325 mg tablet (Mapap 650 mg (2 x 325 mg) PO Q6H PRN 05/29/23 09/10/25 Rx (acetaminophen)) Mild Pain (1-3) Or Fever #0 tabs albuterol sulfate 90 mcg/actuation 1 - 2 inh inhalation Q4H PRN 04/06/25 09/10/25 Rx aerosol inhaler shortness of breath or wheezing Held on 09/10/25. #8.5 grams Instructions: Patient no longer taking warfarin 5 mg tablet 5 mg PO DAILY 04/06/25 09/10/25 History montelukast 10 mg tablet 10 mg PO QHS #90 tabs 04/11/25 09/10/25 Rx primidone 250 mg tablet 250 mg PO TID #270 tabs 04/17/25 09/10/25 Rx fexofenadine 180 mg tablet 180 mg PO DAILY 06/08/25 09/10/25 History (Kat Allergy) Held on 09/10/25. Instructions: Patient no longer taking telmisartan 40 mg tablet 40 mg PO HS 06/08/25 09/10/25 History Held on 09/10/25. Instructions: Patient no longer taking dorzolamide 22.3 mg-timolol 6.8 1 drp EACH EYE Q12H 08/29/25 09/10/25 History mg/mL eye drops furosemide 20 mg tablet 20 mg PO QMWF 08/29/25 09/10/25 History vit C 250 mg-vit E 90 mg-zinc 40 1 tablet PO BID 08/29/25 09/10/25 History mg-copper 1 os-nabzgl-yzkylw capsule (PreserVision AREDS-2) Held on 09/10/25. Instructions: Patient no longer taking atorvastatin 10 mg tablet 10 mg PO QTUTHSASU 09/03/25 09/10/25 History buspirone 5 mg tablet 5 mg PO BID 09/03/25 09/10/25 History Held on 09/10/25. Instructions: Patient no longer taking fluticasone propionate 50 2 spray intranasal BID PRN 09/03/25 09/10/25 History mcg/actuation nasal chronic seasonal allergic rhinitis spray,suspension (Flonase Allergy Relief) oxycodone-acetaminophen 5 mg-325 1 tablet PO Q4H PRN pain #1 tablet 09/03/25 09/10/25 Rx mg tablet (Percocet) albuterol sulfate 2.5 mg/3 mL 2.5 mg inhalation Q4H PRN 09/10/25 09/10/25 History (0.083 %) solution for nebulization shortness of breath or wheezing bisacodyl 5 mg tablet,delayed 5 mg PO DAILY 09/10/25 09/10/25 History release loratadine 10 mg capsule (Allergy 10 mg PO DAILY 09/10/25 09/10/25 History Relief (loratadine)) losartan 25 mg tablet 25 mg PO HS 09/10/25 09/10/25 History methocarbamol 500 mg tablet 500 mg PO QID 09/10/25 09/10/25 History multivitamin with minerals (DAILY 1 tablet PO BID 09/10/25 09/10/25 History VITAMIN FORMULA-MINERALS tablet) vitamin B complex 1 cap PO HS 09/10/25 09/10/25 History Allergies Allergy/AdvReac Type Severity Reaction Status Date / Time naproxen Allergy Severe SWELLING/SO Verified 09/10/25 17:05 B Vital Signs Vital Signs - 24 hr 09/10/25 14:00 09/10/25 14:08 09/10/25 15:21 Temperature 98.7 F Pulse Rate 66 78 61 Respiratory Rate 12 17 Blood Pressure 161/59 H 125/68 Pulse Oximetry 98 98 Oxygen Delivery Room Air Exam Const: General: comfortable and no acute distress Other: , male, elderly, nontoxic appearance HENMT: Face/Nose/Sinus: Normal nares present Mouth: Yes dry mucous membranes Eyes: General: appearance normal, both eyes and all related structures Sclera: sclerae normal Pupils: Equal, round and reactive pupils present EOM: EOMs intact bilaterally Resp: Effort & Inspection: normal respiratory effort Auscultation: clear to auscultation bilaterally Cardio: Rate: regular rate Rhythm: regular rhythm Other: S1-S2 present without murmur, rub, ectopy GI: Other: Abdomen soft, nondistended, nontender. Normoactive bowel sounds in all quadrants. : Other: Modest edema to the genitalia and scrotum. Wadwsorth in place. Urinary Catheter: Urinary Catheter: patent and draining Skin: General skin exam: normal color and no rashes or lesions noted Wounds: no wounds Neuro: Speech: normal speech Sensory Exam: normal sensation Other: Symmetric strength in all extremities. A&O x4. Extrem: Other: 2+ pitting edema to the bilateral lower extremities extending up to the thighs. Also noted to the scrotum and genitalia. Psych: Mental Status: mental status grossly normal Affect: normal affect Other: Good insight and judgment, very pleasant H&P: Results Labs Labs: Short CBC 09/10/25 Range/Units 14:20 WBC 8.9 (4.5-10.0) K/mm3 Hgb 11.5 L (14.0-18.0) g/dL Hct 35.5 L (42.0-52.0) % Plt Count 418 H (150-375) k/mm3 BMP 09/10/25 14:20 Sodium 136 L Potassium 4.3 Chloride 99 Carbon Dioxide 28 BUN 21 H Creatinine 0.81 Glucose 130 H Calcium 8.4 Cardiac Enzymes 09/10/25 Range/Units 14:20 Troponin I 0.012 (0.000-0.034) ng/mL Liver Function 09/10/25 Range/Units 14:20 Total Bilirubin 0.6 (0.2-1.3) mg/dL AST 40 (17-59) U/L ALT 30 (6-50) U/L Alkaline Phosphatase 141 H (38-126) U/L Albumin 3.5 (3.5-5.1) g/dL Urine 09/10/25 Range/Units 15:26 Urine Color Yellow (Yellow) Urine Appearance Clear (Clear) Urine pH 5.5 (5.0-9.0) Ur Specific Celina 1.008 (1.001-1.035) Urine Protein Negative (Negative) mg/dL Urine Glucose (UA) Negative (Negative) mg/dL Assessment and Plan Assessment and plan (1) CHF (congestive heart failure): Qualifiers: Heart failure chronicity: unspecified Heart failure type: unspecified Qualified Code(s): I50.9 - Heart failure, unspecified Code(s): I50.9 - Heart failure, unspecified Status: Acute Assessment and Plan: Concern for CHF exacerbation. Has history of diastolic dysfunction. On Lasix 20 mg p.o. Mondays, Wednesdays, and Fridays due to history of hyponatremia with daily Lasix use. Has had worsening bilateral lower extremity edema that has progressed to his scrotum and caused urinary retention. Initially was unilateral to the left lower extremity, had plan for outpatient venous Doppler study tomorrow (09/09) - check inpatient. CXR personally reviewed, agree with radiologist's impression that imaging showed minimal CHF. BNP currently within normal limits for age. Last echo reviewed, completed in May of 2025 and showed hyperdynamic systolic function with an estimated EF greater than 70%, indeterminate diastolic dysfunction, LA chamber mildly enlarged. - start Lasix 40 mg IV b.i.d. - monitor sodium levels - monitor daily weights and I&Os - continue Wadsworth - reviewed ED vital signs, no hypoxia appreciated - CXR reviewed, minimal CHF - fluid restriction: 2L daily, if patient develops hyponatremia may need to decrease to 1500 mL daily (2) Chest pain: Qualifiers: Chest pain type: unspecified Qualified Code(s): R07.9 - Chest pain, unspecified Code(s): R07.9 - Chest pain, unspecified Status: Acute Assessment and Plan: Short episode of chest pressure that was accompanied by mild nausea and mild shortness of breath. Resolved prior to arrival and without intervention, lasted for approximately 15 minutes. Symptoms similar to previous episodes of atrial fibrillation. Patient has history of chronic atrial fibrillation. Currently rate controlled. Suspect patient may have had episode of tachycardia related to his atrial fibrillation. EKG reviewed and there are no ST elevations or depressions appreciated. Chest pressure could also be related to volume overload secondary to CHF however in favor of dysrhythmia as cause given the quick nature and that he has had similar symptoms due to his AFib. - initial troponin 0.012, follow 3 and 6 hour - SL nitro p.r.n. - telemetry monitoring/admission to IMU (3) Chronic atrial fibrillation: Code(s): I48.20 - Chronic atrial fibrillation, unspecified Status: Chronic Assessment and Plan: History of chronic AFib on warfarin and amiodarone. EKG showing rate controlled atrial fibrillation, rate 69. Did have a short episode of chest pressure/nausea/shortness of breath, could have been episode of tachycardia related to atrial fibrillation. Telemetry monitoring in place to observe for dysrhythmias or episodes of tachycardia. - continue warfarin and amiodarone - telemetry monitoring (4) Hypertension: Qualifiers: Hypertension type: primary hypertension Qualified Code(s): I10 - Essential (primary) hypertension Code(s): I10 - Essential (primary) hypertension Status: Chronic Assessment and Plan: - chronic, currently 145/82, stable - continue home medications: Losartan - monitor (5) Type 2 diabetes mellitus without complication, without long-term current use of insulin: Code(s): E11.9 - Type 2 diabetes mellitus without complications Status: Resolved Assessment and Plan: A1C 5.8% on 03/10/2025. Glucose upon arrival 130. Full update A1c. No longer on anti diabetic medications. (6) Essential tremor: Code(s): G25.0 - Essential tremor Status: Chronic Assessment and Plan: - continue primidone (7) Asthma: Qualifiers: Asthma complication type: uncomplicated Asthma persistence: intermittent Asthma severity: mild Qualified Code(s): J45.20 - Mild intermittent asthma, uncomplicated Code(s): J45.909 - Unspecified asthma, uncomplicated Status: Chronic Assessment and Plan: History of mild asthma at that has not caused him any issues as of late. No wheezing on exam. No concern for exacerbation. - continue Singulair Plan Diet: Heart healthy, fluid restriction GI Prophylaxis: N/a DVT Prophylaxis: Warfarin IV fluids: None, diuresing Lines/Tubes: Peripheral IV Code Status: Full code Quality VTE Prophylaxis VTE prophylaxis: pharmacologic ordered Hospitalist MIPS Advance Care Plan I have confirmed that the patient's Advanced Care Plan is present, code status is documented, or surrogate decision maker is listed in patient medical record.: Yes Medication Reconciliation I have utilized all available resources to obtain, update and review the patients current medications (includes all prescriptions, OTC, herbals, cannabis, and nutritional supplements).: Yes
--- NOTE | 2025-09-10 16:14 | WPCEDHO ---
ED Hand Off Checklist All vitals saved:yes IV Site documented:yes All med administrations documented:yes Triage Note Triage Note Pt to ED via [facility] 09/10/25 14:00 from Rehab where pt is being tx'd for a LEFT hip fx, pt reports chest pressure. Per EMS, staff reports pt was dizzy, having nausea, and was found to be in AFIB w/ reports of right sided chest pressure. 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 Per EMS, pt had a regular rate in the 60s and the chest pressure and nausea has resolved. Pt takes Warfarin daily. EMS also reports bilat swollen legs, takes Lasix daily - was given an increased dose of 40mg today. Pt states he was feeling SOB and denies currently feeling that way. Pt arrives A& Ox4. BS 155. On arrival to ED pt reports his symptoms have resolved and he feels normal. 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 Applied Pulse Rate (60-100) 78 IV / Saline Lock, Insert Start: 09/10/25 13:56 Freq: Status: Active Protocol: Document 09/10/25 14:08 [facility] (Rec: 09/10/25 14:09 [facility] [id number]) IV Assessment Peripheral Access Right Antecubital IV Catheter Access Initiated Before Arrival IV Insertion Date 09/10/25 IV Insertion Time 13:30 Catheter Gauge 18 IV Site Assessment WNL IV Care and WNL Maintenance IV / Saline Lock, Insert Start: 09/10/25 14:07 Freq: STAT Status: Active Protocol: Document 09/10/25 14:28 [facility] (Rec: 09/10/25 14:28 [facility] [id number]) IV Assessment Peripheral Access Right Hand IV Catheter Access Initiated IV Insertion Date 09/10/25 IV Insertion Time 14:28 Catheter Gauge 20 IV Site Assessment WNL IV Care and WNL Maintenance PA: Cardiovascular Assessment Start: 09/10/25 13:56 Freq: Status: Active Protocol: Document 09/10/25 14:10 [facility] (Rec: 09/10/25 14:10 [facility] [id number]) Cardiovascular Assessment Cardiovascular Chest Pressure,Nausea Symptoms PA: Respiratory Assessment Start: 09/10/25 13:56 Freq: Status: Active Protocol: Document 09/10/25 16:12 [facility] (Rec: 09/10/25 16:12 GENNARO [id number]) Respiratory Assessment Symptoms None Effort Normal Pattern Regular Chest Expansion Symmetrical Adult Capillary Normal/Less than 2 Seconds Refill Bilateral Throughout Lung Sounds Clear Cough Description None Oxygen Delivery Oxygen Delivery Room Air Pulse Oximetry (90- 95 100) Last Vital Signs Temperature 98.7 F 09/10/25 14:00 Pulse Rate 56 L 09/10/25 16:13 Respiratory Rate 18 09/10/25 16:13 Pulse Oximetry 100 09/10/25 16:13 Blood Pressure 145/82 H 09/10/25 16:13 Blood Pressure Mean 103 09/10/25 16:13 Blood Pressure Position Sitting 09/10/25 16:13 Oxygen Delivery Room Air 09/10/25 16:12 Weight 109 kg 09/10/25 14:00 Last Result - Abnormals Only RBC 3.53 M/mm3 (4.6-6.20) L 09/10/25 14:20 Hgb 11.5 g/dL (14.0-18.0) L 09/10/25 14:20 Hct 35.5 % (42.0-52.0) L 09/10/25 14:20 MCV 100.6 fl (80-100) H 09/10/25 14:20 Plt Count 418 k/mm3 (150-375) H 09/10/25 14:20 Immature Gran % (Auto) 0.6 % (0-0.5) H 09/10/25 14:20 Neut % (Auto) 75.4 % (45.5-73.1) H 09/10/25 14:20 Lymph % (Auto) 13.8 % (18.3-44.2) L 09/10/25 14:20 Carver # (Auto) 0.7 K/mm3 (0.1-0.6) H 09/10/25 14:20 Abs Immat Gran (auto) 0.05 K/mm3 (0.00-0.031) H 09/10/25 14:20 PT 25.7 Seconds (11.1-14.7) H 09/10/25 14:20 APTT 38.8 Seconds (22.3-36.8) H 09/10/25 14:20 Sodium 136 mmol/L (137-145) L 09/10/25 14:20 BUN 21 mg/dL (9-20) H 09/10/25 14:20 Glucose 130 mg/dL (65-110) H 09/10/25 14:20 Alkaline Phosphatase 141 U/L (38-126) H 09/10/25 14:20 NT-Pro-B Natriuret Pep 907 pg/mL (19.9-100) H 09/10/25 14:20 Ur Blood (Man) 1+ (Negative) H 09/10/25 15:26 Urine RBC 3-5 /hpf (0-2) H 09/10/25 15:26 Most Recent Suicide Severity Rating Suicide Severity Rating NO RISK INDICATED 09/10/25 14:00
--- NOTE | 2025-09-10 16:57 | ECG_ITS ---
Test Date: 2025-09-10 16:57:19 Measurements Intervals [place] Rate: 65 P: 116 [place]: 208 QRS: 19 QRSD: 90 T: 39 QT: 393 QTc: 409 Interpretive Statements SINUS RHYTHM WITH SINUS ARRHYTHMIA LOW QRS VOLTAGE IN EXTREMITY LEADS [QRS DEFLECTION < 0.5 mV IN LIMB LEADS] BORDERLINE ECG Compared to ECG 09/10/2025 14:06:56 NO SIGNIFICANT CHANGE Electronically Signed On 09-11-2025 07:20:55 HUMAN RESOURCES COMPLIANCE MANAGER by Jaiden Pisano M.D.
--- NOTE | 2025-09-10 17:47 | ADMGEN ---
This patient, Truong Higuera, was admitted to IMU Room 205-02 at approximately 1630. Patient/family oriented to hospital policies and general routines including ID bracelet, bed and alarms, visiting hours, pain management, procedures, bathroom and other care routines, personal items, smoking policy, room service/diet, and visiting hours. Information on how to activate the Rapid Response Team has been discussed. Patient/Family are encouraged to report perceived risks to care and to ask questions if they do not understand what they are told or what they should do.
[2025-09-10 19:13] LABS: Troponin I 0.024 ng/mL (0.000-0.034)
[2025-09-10] MEDS: PRIMIDONE 250 MG TABLET PO (20:46)
[2025-09-10] MEDS: WARFARIN (*PBKC) 5 MG TABLET PO (20:46)
[2025-09-10] MEDS: VITAMIN B COMPLEX CAPSULE 1 CAP PO (20:46)
[2025-09-10] MEDS: MONTELUKAST SODIUM 10 MG TABLET PO (20:47)
[2025-09-10] MEDS: ASCORBIC ACID 500 MG TABLET 1000 MG PO (20:47)
[2025-09-10] MEDS: LOSARTAN POTASSIUM 25 MG TABLET PO (20:47)
[2025-09-10] MEDS: FUROSEMIDE INJ 40 MG/4 ML VIAL IV PUSH (20:48)
[2025-09-10] MEDS: DORZOLAMIDE/TIMOLOL OPHTH SOL 10 ML BOTTLE 1 DROP EACH EYE (20:53)
[2025-09-10] MEDS: LATANOPROST 0.005% OP SOLN 2.5 ML BTL 1 DROP EACH EYE (20:55)
--- NOTE | 2025-09-10 21:50 | ECG_ITS ---
Test Date: 2025-09-10 21:46:44 Measurements Intervals [place] Rate: 56 P: 96 [place]: 212 QRS: 28 QRSD: 93 T: 48 QT: 411 QTc: 398 Interpretive Statements SINUS BRADYCARDIA WITH SINUS ARRHYTHMIA WITH FIRST DEGREE AV BLOCK LOW QRS VOLTAGE IN EXTREMITY LEADS [QRS DEFLECTION < 0.5 mV IN LIMB LEADS]+ BORDERLINE ECG Compared to ECG 09/10/2025 16:57:19 NO SIGNIFICANT CHANGE Electronically Signed On 09-11-2025 07:23:51 SENIOR ADULTS DIRECTOR by Jaiden Pisano M.D.
[2025-09-10 22:20] LABS: Troponin I < 0.012 ng/mL (0.000-0.034)
[2025-09-11] VITALS (11 sets, daily range): BP systolic 110–138; BP diastolic 54–84; PULSE 52–103; RESP 16–20; TEMP 36.3–36.8; O2SAT 96–97
--- NOTE | 2025-09-11 01:52 | ECG_ITS ---
Test Date: 2025-09-11 01:58:47 Measurements Intervals [employer] Rate: 100 P: 0 [place]: 0 QRS: 7 QRSD: 92 T: 39 QT: 341 QTc: 441 Interpretive Statements ATRIAL FIBRILLATION WITH RAPID VENTRICULAR RESPONSE LOW QRS VOLTAGE IN EXTREMITY LEADS [QRS DEFLECTION < 0.5 mV IN LIMB LEADS] ABNORMAL RHYTHM ECG ABNORMAL ECG Compared to ECG 09/10/2025 21:46:44 ATRIAL FIBRILLATION REPLACES SINUS RHYTHM Electronically Signed On 09-11-2025 07:28:19 PARKING INSPECTOR by Jaiden Pisano M.D.
[2025-09-11] MEDS: ALPRAZolam (*CRX) 0.25 MG TABLET PO (02:45)
[2025-09-11 04:52] LABS: INR 2.8; Prothrombin Time 28.6 Seconds (11.1-14.7)
[2025-09-11 05:03] LABS: Hemoglobin A1C 5.3 % (<5.7)
--- NOTE | 2025-09-11 07:22 | PC.NURSE ---
Alert, awake and oriented at this time. Assisted with tray set up and patient placed hearing aids in. Denies pain or discomfort at this time. All needs met at this time. No acute distress noted at this time.
--- NOTE | 2025-09-11 08:36 | PM.IMPN ---
Progress Note: A&P Assessment and Plan (1) CHF (congestive heart failure): Qualifiers: Heart failure chronicity: unspecified Heart failure type: unspecified Qualified Code(s): I50.9 - Heart failure, unspecified Code(s): I50.9 - Heart failure, unspecified Status: Acute Assessment and Plan: Concern for CHF exacerbation. Has history of diastolic dysfunction. On Lasix 20 mg p.o. Mondays, Wednesdays, and Fridays due to history of hyponatremia with daily Lasix use. Has had worsening bilateral lower extremity edema that has progressed to his scrotum and caused urinary retention. Initially was unilateral to the left lower extremity, had plan for outpatient venous Doppler study tomorrow (09/09) - check inpatient. CXR personally reviewed, agree with radiologist's impression that imaging showed minimal CHF. BNP currently within normal limits for age. Last echo reviewed, completed in May of 2025 and showed hyperdynamic systolic function with an estimated EF greater than 70%, indeterminate diastolic dysfunction, LA chamber mildly enlarged. - start Lasix 40 mg IV b.i.d. - monitor sodium levels - monitor daily weights and I&Os - continue Wadsworth - reviewed ED vital signs, no hypoxia appreciated - CXR reviewed, minimal CHF - fluid restriction: 2L daily, if patient develops hyponatremia may need to decrease to 1500 mL daily (2) Chest pain: Qualifiers: Chest pain type: unspecified Qualified Code(s): R07.9 - Chest pain, unspecified Code(s): R07.9 - Chest pain, unspecified Status: Acute Assessment and Plan: Short episode of chest pressure that was accompanied by mild nausea and mild shortness of breath. Resolved prior to arrival and without intervention, lasted for approximately 15 minutes. Symptoms similar to previous episodes of atrial fibrillation. Patient has history of chronic atrial fibrillation. Currently rate controlled. Suspect patient may have had episode of tachycardia related to his atrial fibrillation. EKG reviewed and there are no ST elevations or depressions appreciated. Chest pressure could also be related to volume overload secondary to CHF however in favor of dysrhythmia as cause given the quick nature and that he has had similar symptoms due to his AFib. - initial troponin 0.012, follow 3 and 6 hour - SL nitro p.r.n. - telemetry monitoring/admission to IMU (3) Chronic atrial fibrillation: Code(s): I48.20 - Chronic atrial fibrillation, unspecified Status: Chronic Assessment and Plan: History of chronic AFib on warfarin and amiodarone. EKG showing rate controlled atrial fibrillation, rate 69. Did have a short episode of chest pressure/nausea/shortness of breath, could have been episode of tachycardia related to atrial fibrillation. Telemetry monitoring in place to observe for dysrhythmias or episodes of tachycardia. - continue warfarin and amiodarone - telemetry monitoring (4) Hypertension: Qualifiers: Hypertension type: primary hypertension Qualified Code(s): I10 - Essential (primary) hypertension Code(s): I10 - Essential (primary) hypertension Status: Chronic Assessment and Plan: - chronic, currently 145/82, stable - continue home medications: Losartan - monitor (5) Type 2 diabetes mellitus without complication, without long-term current use of insulin: Code(s): E11.9 - Type 2 diabetes mellitus without complications Status: Resolved Assessment and Plan: A1C 5.8% on 03/10/2025. Glucose upon arrival 130. Full update A1c. No longer on anti diabetic medications. (6) Essential tremor: Code(s): G25.0 - Essential tremor Status: Chronic Assessment and Plan: - continue primidone (7) Asthma: Qualifiers: Asthma severity: mild Asthma persistence: intermittent Asthma complication type: uncomplicated Qualified Code(s): J45.20 - Mild intermittent asthma, uncomplicated Code(s): J45.909 - Unspecified asthma, uncomplicated Status: Chronic Assessment and Plan: History of mild asthma at that has not caused him any issues as of late. No wheezing on exam. No concern for exacerbation. - continue Singulair Plan Diet: Heart healthy, fluid restriction GI Prophylaxis: N/a DVT Prophylaxis: Warfarin IV fluids: None, diuresing Lines/Tubes: Peripheral IV Code Status: Full code Subjective Date/time seen: 09/11/25 08:36 Interval history: 89 y/o M with PMH of recent left femoral neck fracture s/p surgery on 08/30, hyponatremia, anemia, type 2 diabetes, hypertension, chronic atrial fibrillation, chronic diastolic CHF, and tremor presents here with chest pressure, bilateral lower extremity swelling, and shortness of breath. The patient presents here from [facility] via EMS on 09/10 for further evaluation of chest pressure, shortness of breath, and bilateral lower extremity swelling. He reports onset of chest pressure today while he was sitting. He describes the chest pressure as right sided, lasted for 15 mins and resolved without intervention, and similar to his previous episodes of atrial fibrillation but more mild. Chest pressure was accompanied by mild dizziness, nausea, and shortness of breath (more so described as feeling winded). Per EMS, patient found to be in NSR upon their arrival and symptoms had resolved. Currently at [facility] for physical therapy/occupational therapy following a left hip fracture with surgical management on 08/30 at [facility]. He was noted to have increasing lower extremity swelling over the last few days, Lasix was increased to 40 mg today. Initial concern swelling was unilateral to his left lower extremity, patient reports he had a venous Doppler ordered for tomorrow to rule out a blood clot. However, swelling more so bilateral today and symmetric. Typically on 20 mg of Lasix on Mondays, Wednesdays, and Fridays due to a history of hyponatremia due to diuresis. He reports the swelling has been ongoing for the past 3 days. Swelling noted to his scrotum/genitalia which caused urinary retention yesterday for which a Wadsworth was placed. Initial VS at presentation: 98.7? F, HR 66, R 12, 161/59, and 98% on RA. ED workup showed: No leukocytosis, hemoglobin 11.5, INR 2.4, sodium 136, creatinine 0.81 and GFR >60, glucose 130, her initial troponin 0.012, BNP 907 (WNL for age), and UA showed 1+ blood/3-5 RBC otherwise unremarkable. CXR showed minimal CHF. EKG showed rate controlled AFib, rate 69, low QRS voltage. Pt is seen and examined Review of Systems Review of Systems: All systems reviewed & are unremarkable except as noted in HPI and below Exam Const: General: comfortable and no acute distress Other: , male, elderly, nontoxic appearance HENMT: Face/Nose/Sinus: Normal nares present Mouth: Yes dry mucous membranes Eyes: General: appearance normal, both eyes and all related structures Sclera: sclerae normal Pupils: Equal, round and reactive pupils present EOM: EOMs intact bilaterally Resp: Effort & Inspection: normal respiratory effort Auscultation: clear to auscultation bilaterally Cardio: Rate: regular rate Rhythm: regular rhythm Other: S1-S2 present without murmur, rub, ectopy GI: Other: Abdomen soft, nondistended, nontender. Normoactive bowel sounds in all quadrants. : Other: Modest edema to the genitalia and scrotum. Wadsworth in place. Urinary Catheter: Urinary Catheter: patent and draining Skin: General skin exam: normal color and no rashes or lesions noted Wounds: no wounds Neuro: Cranial nerves: Yes Equal, round and reactive pupils present Speech: normal speech Sensory Exam: normal sensation Other: Symmetric strength in all extremities. A&O x4. Extrem: Other: 2+ pitting edema to the bilateral lower extremities extending up to the thighs. Also noted to the scrotum and genitalia. Psych: Mental Status: mental status grossly normal Affect: normal affect Other: Good insight and judgment, very pleasant Objective Data Vital Signs Vital Signs: Vital Signs - 24 hr 09/10/25 14:00 09/10/25 14:08 09/10/25 15:21 Temperature 98.7 F Pulse Rate 66 78 61 Respiratory Rate 12 17 Blood Pressure 161/59 H 125/68 Pulse Oximetry 98 98 Oxygen Delivery Room Air 09/10/25 16:12 09/10/25 16:13 09/10/25 17:04 Temperature 98.9 F Pulse Rate 56 L 67 Respiratory Rate 18 20 Blood Pressure 145/82 H 152/65 H Pulse Oximetry 95 100 100 Oxygen Delivery Room Air 09/10/25 17:30 09/10/25 18:00 09/10/25 19:36 Temperature 98.8 F Pulse Rate 66 66 Respiratory Rate 18 Blood Pressure 139/50 L Pulse Oximetry 100 Oxygen Delivery Room Air 09/10/25 20:00 09/10/25 20:00 09/10/25 22:00 Temperature Pulse Rate 57 L 53 L Respiratory Rate Blood Pressure Pulse Oximetry Oxygen Delivery Room Air 09/10/25 23:35 09/10/25 23:41 09/11/25 00:00 Temperature 97.8 F Pulse Rate 53 L 52 L Respiratory Rate 17 Blood Pressure 111/61 Pulse Oximetry 99 Oxygen Delivery Room Air 09/11/25 02:00 09/11/25 02:02 09/11/25 04:00 Temperature 98.3 F Pulse Rate 97 99 90 Respiratory Rate 18 Blood Pressure 121/56 L Pulse Oximetry 97 Oxygen Delivery 09/11/25 04:00 09/11/25 04:00 09/11/25 06:00 Temperature 97.7 F Pulse Rate 77 84 Respiratory Rate 16 Blood Pressure 110/54 L Pulse Oximetry 97 Oxygen Delivery Room Air 09/11/25 07:48 Temperature 98.2 F Pulse Rate 94 Respiratory Rate 20 Blood Pressure 112/56 L Pulse Oximetry 96 Oxygen Delivery Intake/Output Intake/Output: Intake & Output 09/08/25 09/09/25 09/10/25 09/11/25 23:59 23:59 23:59 23:59 Intake Total 0 250 Output Total 700 1270 Balance -700 -1020 Meds/Results Medications: Active Medications Generic Name Dose Route Start Last Admin Trade Name Freq PRN Reason Stop Dose Admin Acetaminophen 650 mg 09/10/25 16:18 Acetaminophen 325 Mg Tablet PO Q6H PRN Mild Pain (1-3) or Fever Albuterol 2.5 mg 09/10/25 19:02 Albuterol Sulfate Neb 2.5 Mg/3 Ml Inh INHALATION Q4H PRN Shortness Of Breath Or Wheezing Amiodarone HCl 200 mg 09/11/25 09:00 Amiodarone Hcl 200 Mg Tablet PO DAILY VIVIANE Ascorbic Acid 1,000 mg 09/10/25 21:00 09/10/25 20:47 Ascorbic Acid 500 Mg Tablet PO 1,000 mg HS VIVIANE Administration Atorvastatin Calcium 10 mg 09/12/25 09:00 Atorvastatin 10 Mg Tablet PO SuTuThSa@0900 VIVIANE Bisacodyl 5 mg 09/11/25 09:00 Bisacodyl 5 Mg Tablet Ec PO DAILY VIVIANE Calcium Carbonate 200 mg 09/10/25 16:18 Calcium Carbonate (Tums) 500 Mg (200 Mg Elemental) PO Q6H PRN Indigestion Docusate Sodium 100 mg 09/10/25 16:18 Docusate Sodium 100 Mg Capsule PO Q12H PRN Constipation Dorzolamide/Timolol 1 drop 09/10/25 21:00 09/10/25 20:53 Dorzolamide/Timolol Ophth Olivia 10 Ml Bottle EACH EYE 1 drop Q12H VIVIANE Administration Fluticasone Propionate 2 spray 09/10/25 19:02 Fluticasone Propionate 0.05% Na Spr 16 Gm Btl (*Bkc) NASAL BID PRN ALLERGIC RHINITIS Furosemide 40 mg 09/10/25 21:00 09/10/25 20:48 Furosemide Inj 40 Mg/4 Ml Vial IV PUSH 40 mg Q12HR VIVIANE Administration Latanoprost 1 drop 09/10/25 21:00 09/10/25 20:55 Latanoprost 0.005% Op Soln 2.5 Ml Btl EACH EYE 1 drop HS [facility] Administration Loratadine 10 mg 09/11/25 09:00 Loratadine 10 Mg Tablet PO DAILY [facility] Losartan Potassium 25 mg 09/10/25 21:00 09/10/25 20:47 Losartan Potassium 25 Mg Tablet PO 25 mg HS [facility] Administration Methocarbamol 500 mg 09/10/25 21:00 09/10/25 20:48 Methocarbamol 500 Mg Tablet PO 500 mg QID [facility] Administration Montelukast Sodium 10 mg 09/10/25 21:00 09/10/25 20:47 Montelukast Sodium 10 Mg Tablet PO 10 mg QHS [facility] Administration Multivitamins/Calcium 1 tablet 09/11/25 09:00 Therapeutic Multivitamins/Minerals Tab (*Bkc) PO BID [facility] Nitroglycerin 0.4 mg 09/10/25 16:18 Nitroglycerin Sl 0.4 Mg Tablet SUBLINGUAL Q5MIN PRN Chest Pain Ondansetron HCl 4 mg 09/10/25 16:18 Ondansetron Hcl Odt 4 Mg Tablet PO Q6H PRN Nausea And Vomiting Oxycodone/Acetaminophen 1 tablet 09/10/25 19:02 Oxycodone/Acetaminophen (*Crx) 5-325 Mg Tablet PO Q4H PRN Pain Rated 4-6 Primidone 250 mg 09/10/25 19:20 09/10/25 20:46 Primidone 250 Mg Tablet PO 250 mg TID [facility] Administration Vitamin B Complex 1 cap 09/10/25 21:00 09/10/25 20:46 Vitamin B Complex Capsule PO 1 cap HS [facility] Administration Vitamin D 75 mcg 09/11/25 09:00 Cholecalciferol (Vitamin D3) 25 Mcg (1,000 Units) Tablet PO DAILY [facility] Warfarin Sodium 5 mg 09/10/25 19:25 09/10/25 20:46 Warfarin (*Pbkc) 5 Mg Tablet PO 5 mg DAILY@1700 [facility] Administration Radiology Results: ITS Impressions Chest X-Ray 09/10/25 15:04 Impression: Minimal CHF Labs Labs: Laboratory Results - last 24 hr 11/23/25 11/23/25 11/23/25 14:20 15:26 18:38 WBC 8.9 RBC 3.53 L Hgb 11.5 L Hct 35.5 L MCV 100.6 H MCH 32.6 MCHC 32.4 RDW 14.3 Plt Count 418 H MPV 8.8 Immature Gran % (Auto) 0.6 H Neut % (Auto) 75.4 H Lymph % (Auto) 13.8 L [place] % (Auto) 7.8 Eos % (Auto) 1.9 Baso % (Auto) 0.5 Lymph # (Auto) 1.22 [place] # (Auto) 0.7 H Eos # (Auto) 0.2 Baso # (Auto) 0.0 Abs Immat Gran (auto) 0.05 H Absolute Neuts (auto) 6.7 Absolute Nucleated RBC 0.000 Nucleated RBC % 0.0 PT 25.7 H INR 2.4 APTT 38.8 H Sodium 136 L Potassium 4.3 Chloride 99 Carbon Dioxide 28 Anion Gap 9 BUN 21 H Creatinine 0.81 Estim Creat Clear Calc 69 Estimated GFR > 60 Glucose 130 H Hemoglobin A1c Calcium 8.4 Magnesium 2.1 Total Bilirubin 0.6 AST 40 ALT 30 Alkaline Phosphatase 141 H Troponin I 0.012 0.024 D NT-Pro-B Natriuret Pep 907 H Total Protein 6.7 Albumin 3.5 Lipase 40 Urine Color Yellow Urine Appearance Clear Urine pH 5.5 Ur Specific [place] 1.008 Urine Protein Negative Urine Glucose (UA) Negative Urine Ketones Negative Ur Blood (Man) 1+ H Urine Nitrate Negative Urine Bilirubin Negative Urine Urobilinogen 1.0 Leukocyte Esterase Rfl Negative Urine RBC 3-5 H Urine WBC 0-5 Ur Squamous Epith Cells None seen Urine Bacteria None seen Urine Casts 0-2 09/10/25 09/11/25 21:34 04:10 WBC RBC Hgb Hct MCV MCH MCHC RDW Plt Count MPV Immature Gran % (Auto) Neut % (Auto) Lymph % (Auto) [place] % (Auto) Eos % (Auto) Baso % (Auto) Lymph # (Auto) [place] # (Auto) Eos # (Auto) Baso # (Auto) Abs Immat Gran (auto) Absolute Neuts (auto) Absolute Nucleated RBC Nucleated RBC % PT 28.6 H INR 2.8 APTT Sodium Potassium Chloride Carbon Dioxide Anion Gap BUN Creatinine Estim Creat Clear Calc Estimated GFR Glucose Hemoglobin A1c 5.3 Calcium Magnesium Total Bilirubin AST ALT Alkaline Phosphatase Troponin I < 0.012 D NT-Pro-B Natriuret Pep Total Protein Albumin Lipase Urine Color Urine Appearance Urine pH Ur Specific [place] Urine Protein Urine Glucose (UA) Urine Ketones Ur Blood (Man) Urine Nitrate Urine Bilirubin Urine Urobilinogen Leukocyte Esterase Rfl Urine RBC Urine WBC Ur Squamous Epith Cells Urine Bacteria Urine Casts Quality VTE Prophylaxis VTE prophylaxis: pharmacologic ordered
[2025-09-11] MEDS: CHOLECALCIFEROL (VITAMIN D3) 25 MCG (1,000 UNITS) TABLET 75 MCG PO (09:08)
[2025-09-11] MEDS: PRIMIDONE 250 MG TABLET PO ×2 (09:08→12:13)
[2025-09-11] MEDS: AMIODARONE HCL 200 MG TABLET PO (09:08)
[2025-09-11] MEDS: FUROSEMIDE INJ 40 MG/4 ML VIAL IV PUSH (09:08)
[2025-09-11] MEDS: THERAPEUTIC MULTIVITAMINS/MINERALS TAB (*BKC) 1 TABLET PO (09:09)
[2025-09-11] MEDS: DORZOLAMIDE/TIMOLOL OPHTH SOL 10 ML BOTTLE 1 DROP EACH EYE (09:09)
[2025-09-11] MEDS: LORATADINE 10 MG TABLET PO (09:09)
--- NOTE | 2025-09-11 11:00 | PM.CNCAR ---
Assessment and Plan Assessment and plan (1) Chronic atrial fibrillation: Code(s): I48.20 - Chronic atrial fibrillation, unspecified Status: Chronic Assessment and Plan: Stable, atrial fibrillation controlled. Continue amiodarone and warfarin. (2) Hypertension: Qualifiers: Hypertension type: primary hypertension Qualified Code(s): I10 - Essential (primary) hypertension Code(s): I10 - Essential (primary) hypertension Status: Chronic Assessment and Plan: Blood pressure goal. Continue current medical regimen without change. (3) CHF (congestive heart failure): Qualifiers: Heart failure chronicity: unspecified Heart failure type: unspecified Qualified Code(s): I50.9 - Heart failure, unspecified Code(s): I50.9 - Heart failure, unspecified Status: Acute Assessment and Plan: He was admitted with volume overload. This has resolved after diuresis. Upon discharge, would continue oral furosemide 20 mg daily. Check a BMP in 2 weeks. Plan Plan for discharge today. This is okay from cardiac standpoint. History of Present Illness History of Present Illness Consult date/time: 09/11/25 11:00 Reason For Visit: CHF Exacerbation/CP Narrative: Truong Higuera is an 89 year old male with atrial fibrillation. He follows in our office with Dr. Pisano. He is currently hospitalized with leg swelling and shortness of breath. Cardiology is consulted for atrial fibrillation and CHF. He was diuresed with IV furosemide and his swelling has nearly resolved. He denies any shortness of breath, palpitations, chest pain. He was experiencing palpitations prior to admission to the hospital. When he was admitted, he was in atrial fibrillation with rapid ventricular response. At the time of my evaluation, he is in atrial fibrillation with controlled heart rate. Telemetry review shows paroxysmal atrial fibrillation with his heart rate controlled. Review of Systems Review of Systems: All systems reviewed & are unremarkable except as noted in HPI and below PMFSH Past Medical History Medical History Hyponatremia Pancreatic lesion Glaucoma Seasonal allergies Chronic anticoagulation Chronic diastolic (congestive) heart failure Degenerative disc disease History of hemorrhoids Asthma Anxiety Hypertension Spondylosis of lumbar spine Anemia Pneumonia due to COVID-19 virus Arthritis Hearing loss Chronic atrial fibrillation Essential tremor Mixed hyperlipidemia Type 2 diabetes mellitus without complication, without long-term current use of insulin Surgical History Surgical History History of tonsillectomy History of cataract extraction History of back surgery History of hip surgery History of cardiac catheterization Cervical vertebral fusion Family History Family History Father Cerebrovascular accident Sibling Asthma Mother Brain aneurysm Other Diabetes mellitus Family history of arthritis Hypertension Social History Social History Social History: patient is a nonsmoker and never has smoked. He does not use alcohol or drugs. 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 His power of executive sales manager is Jia Leon, daughter. He would like to be a full code Smoking status: Never smoker Tobacco type: smokeless tobacco Smokeless tobacco user: chewing tobacco Second hand tobacco smoke exposure: No Alcohol intake: never Substance use: never Substance use type: does not use Lack of Transportation: No Lack of Food: Never True Current Housing: I Have Housing Concerned About Future Housing: No Difficulty Paying Gas/Electric Bills: No Difficulty Paying for Meds: No Currently Unemployed: No Education: High School Diploma/GED Difficulty w/ Childcare or Family Care: No Living arrangements: with family Occupation/Education: retired Gender identity (if verbalized by the patient): Male Sexual Orientation (if Verbalized by the Patient): Straight or Heterosexual Spiritual care concerns: No Agree to blood products: Yes Meds Home Medications and Allergies Home Medications ?Medication ?Instructions ?Recorded ?Confirmed ?Type latanoprost 0.005 % eye drops 1 drop ophthalmic (eye) HS 03/28/20 09/10/25 History B-complex with vitamin C 1 tablet PO HS 05/09/20 09/10/25 History amiodarone 200 mg tablet 200 mg PO DAILY 05/09/20 09/10/25 History ascorbic acid (vitamin C) 1,000 mg 1 g PO HS 05/09/20 09/10/25 History tablet cholecalciferol (vitamin D3) 75 75 mcg PO DAILY 05/07/21 09/10/25 History mcg (3,000 unit) tablet acetaminophen 325 mg tablet (Mapap 650 mg (2 x 325 mg) PO Q6H PRN 05/29/23 09/10/25 Rx (acetaminophen)) Mild Pain (1-3) Or Fever #0 tabs albuterol sulfate 90 mcg/actuation 1 - 2 inh inhalation Q4H PRN 04/06/25 09/10/25 Rx aerosol inhaler shortness of breath or wheezing #8.5 grams warfarin 5 mg tablet 5 mg PO DAILY 04/06/25 09/10/25 History montelukast 10 mg tablet 10 mg PO QHS #90 tabs 04/11/25 09/10/25 Rx primidone 250 mg tablet 250 mg PO TID #270 tabs 04/17/25 09/10/25 Rx fexofenadine 180 mg tablet 180 mg PO DAILY 06/08/25 09/10/25 History (Kat Allergy) telmisartan 40 mg tablet 40 mg PO HS 06/08/25 09/10/25 History dorzolamide 22.3 mg-timolol 6.8 1 drp EACH EYE Q12H 08/29/25 09/10/25 History mg/mL eye drops vit C 250 mg-vit E 90 mg-zinc 40 1 tablet PO BID 08/29/25 09/10/25 History mg-copper 1 [id number] capsule (PreserVision AREDS-2) atorvastatin 10 mg tablet 10 mg PO QTUTHSASU 09/03/25 09/10/25 History buspirone 5 mg tablet 5 mg PO BID 09/03/25 09/10/25 History fluticasone propionate 50 2 spray intranasal BID PRN 09/03/25 09/10/25 History mcg/actuation nasal chronic seasonal allergic rhinitis spray,suspension (Flonase Allergy Relief) oxycodone-acetaminophen 5 mg-325 1 tablet PO Q4H PRN pain #1 tablet 09/03/25 09/10/25 Rx mg tablet (Percocet) albuterol sulfate 2.5 mg/3 mL 2.5 mg inhalation Q4H PRN 09/10/25 09/10/25 History (0.083 %) solution for nebulization shortness of breath or wheezing bisacodyl 5 mg tablet,delayed 5 mg PO DAILY 09/10/25 09/10/25 History release loratadine 10 mg capsule (Allergy 10 mg PO DAILY 09/10/25 09/10/25 History Relief (loratadine)) losartan 25 mg tablet 25 mg PO HS 09/10/25 09/10/25 History methocarbamol 500 mg tablet 500 mg PO QID 09/10/25 09/10/25 History multivitamin with minerals (DAILY 1 tablet PO BID 09/10/25 09/10/25 History VITAMIN FORMULA-MINERALS tablet) vitamin B complex 1 cap PO HS 09/10/25 09/10/25 History furosemide 20 mg tablet 20 mg PO DAILY #30 tabs 09/11/25 09/10/25 Rx Allergies Allergy/AdvReac Type Severity Reaction Status Date / Time naproxen Allergy Severe SWELLING/SO Verified 09/10/25 17:05 B Vital Signs Vital Signs - 24 hr 09/10/25 14:00 09/10/25 14:08 09/10/25 15:21 Temperature 37.1 C Pulse Rate 66 78 61 Respiratory Rate 12 17 Blood Pressure 161/59 H 125/68 Pulse Oximetry 98 98 Oxygen Delivery Room Air 09/10/25 16:12 09/10/25 16:13 09/10/25 17:04 Temperature 37.2 C Pulse Rate 56 L 67 Respiratory Rate 18 20 Blood Pressure 145/82 H 152/65 H Pulse Oximetry 95 100 100 Oxygen Delivery Room Air 09/10/25 17:30 09/10/25 18:00 09/10/25 19:36 Temperature 37.1 C Pulse Rate 66 66 Respiratory Rate 18 Blood Pressure 139/50 L Pulse Oximetry 100 Oxygen Delivery Room Air 09/10/25 20:00 09/10/25 20:00 09/10/25 22:00 Temperature Pulse Rate 57 L 53 L Respiratory Rate Blood Pressure Pulse Oximetry Oxygen Delivery Room Air 09/10/25 23:35 09/10/25 23:41 09/11/25 00:00 Temperature 36.6 C Pulse Rate 53 L 52 L Respiratory Rate 17 Blood Pressure 111/61 Pulse Oximetry 99 Oxygen Delivery Room Air 09/11/25 02:00 09/11/25 02:02 09/11/25 04:00 Temperature 36.8 C Pulse Rate 97 99 90 Respiratory Rate 18 Blood Pressure 121/56 L Pulse Oximetry 97 Oxygen Delivery 09/11/25 04:00 09/11/25 04:00 09/11/25 06:00 Temperature 36.5 C Pulse Rate 77 84 Respiratory Rate 16 Blood Pressure 110/54 L Pulse Oximetry 97 Oxygen Delivery Room Air 09/11/25 07:48 09/11/25 08:00 09/11/25 08:00 Temperature 36.8 C Pulse Rate 94 87 87 Respiratory Rate 20 20 Blood Pressure 112/56 L Pulse Oximetry 96 96 Oxygen Delivery Room Air 09/11/25 09:08 Temperature Pulse Rate 87 Respiratory Rate Blood Pressure Pulse Oximetry Oxygen Delivery Exam Const: General: comfortable, no acute distress, alert and awake Orientation/consciousness: patient oriented x3 HENMT: Head: normal to inspection Eyes: General: appearance normal, both eyes and all related structures Pupils: Equal, round and reactive pupils present Neck: Neck: normal visual inspection, supple and no JVD Carotids: normal carotid upstroke Resp: Effort & Inspection: normal respiratory effort Auscultation: clear to auscultation bilaterally Cardio: Rate: regular rate Rhythm: abnormal rhythm irregularly irregular Heart sounds: S1 normal heart sound present, S2 normal heart sound present and no murmurs GI: Auscultation: normal bowel sounds Skin: General skin exam: normal color Neuro: General: patient oriented x3 Cranial nerves: Yes Equal, round and reactive pupils present Extrem: General: normal to inspection Other: mild edema Psych: Appearance: grossly normal Mental Status: mental status grossly normal Results Labs and Meds 09/10/25 14:20 09/10/25 14:20 Lab results: Cardiac Enzymes 09/10/25 09/10/25 09/10/25 Range/Units 14:20 18:38 21:34 AST 40 (17-59) U/L Troponin I 0.012 0.024 D < 0.012 D (0.000-0.034) ng/mL Coagulation 09/10/25 09/11/25 Range/Units 14:20 04:10 PT 25.7 H 28.6 H (11.1-14.7) Seconds APTT 38.8 H (22.3-36.8) Seconds CBC 09/10/25 Range/Units 14:20 WBC 8.9 (4.5-10.0) K/mm3 RBC 3.53 L (4.6-6.20) M/mm3 Hgb 11.5 L (14.0-18.0) g/dL Hct 35.5 L (42.0-52.0) % Plt Count 418 H (150-375) k/mm3 Lymph # (Auto) 1.22 (0.9-3.2) K/mm3 [facility] # (Auto) 0.7 H (0.1-0.6) K/mm3 Eos # (Auto) 0.2 (0-0.3) K/mm3 Baso # (Auto) 0.0 (0.0-0.1) K/mm3 Comprehensive Metabolic Panel 09/10/25 Range/Units 14:20 Sodium 136 L (137-145) mmol/L Potassium 4.3 (3.4-5.0) mmol/L Chloride 99 (98-107) mmol/L Carbon Dioxide 28 (22-30) mmol/L BUN 21 H (9-20) mg/dL Creatinine 0.81 (0.7-1.3) mg/dL Glucose 130 H (65-110) mg/dL Calcium 8.4 (8.4-10.2) mg/dL AST 40 (17-59) U/L ALT 30 (6-50) U/L Alkaline Phosphatase 141 H (38-126) U/L Total Protein 6.7 (6.3-8.2) g/dL Albumin 3.5 (3.5-5.1) g/dL Intake and Output 09/10/25 09/11/25 09/11/25 23:59 07:59 15:59 Intake Total 0 250 120 Output Total 700 1270 Balance -700 -1020 120 Intake: Oral 0 250 120 Output: Catheter Urine 700 1270 Urethral Catheter 700 1270 Other: Number of Bowel Movements Today 1 Patient Weight 09/11/25 23:59 Weight 103.1 kg
--- NOTE | 2025-09-11 12:02 | P.DS_ITS ---
DS: Admitting Diagnosis Discharge Date 09/11 Admitting Diagnosis chest pressure, BLE swelling, SOB DS: Discharge Diagnosis Discharge Diagnosis (1) CHF (congestive heart failure): Qualifiers: Heart failure chronicity: unspecified Heart failure type: unspecified Qualified Code(s): I50.9 - Heart failure, unspecified Code(s): I50.9 - Heart failure, unspecified Status: Acute (2) Chest pain: Qualifiers: Chest pain type: unspecified Qualified Code(s): R07.9 - Chest pain, unspecified Code(s): R07.9 - Chest pain, unspecified Status: Acute (3) Chronic atrial fibrillation: Code(s): I48.20 - Chronic atrial fibrillation, unspecified Status: Chronic (4) Hypertension: Qualifiers: Hypertension type: primary hypertension Qualified Code(s): I10 - Essential (primary) hypertension Code(s): I10 - Essential (primary) hypertension Status: Chronic (5) Type 2 diabetes mellitus without complication, without long-term current use of insulin: Code(s): E11.9 - Type 2 diabetes mellitus without complications Status: Resolved (6) Essential tremor: Code(s): G25.0 - Essential tremor Status: Chronic (7) Asthma: Qualifiers: Asthma severity: mild Asthma persistence: intermittent Asthma complication type: uncomplicated Qualified Code(s): J45.20 - Mild intermittent asthma, uncomplicated Code(s): J45.909 - Unspecified asthma, uncomplicated Status: Chronic DS: Summary Hospital Course Hospital Course: 89 y/o M with PMH of recent left femoral neck fracture s/p surgery on 08/30, hyponatremia, anemia, type 2 diabetes, hypertension, chronic atrial fibrillation, chronic diastolic CHF, and tremor presents here with chest pressure, bilateral lower extremity swelling, and shortness of breath. The patient presents here from [facility] via EMS on 09/10 for further evaluation of chest pressure, shortness of breath, and bilateral lower extremity swelling. He reports onset of chest pressure today while he was sitting. He describes the chest pressure as right sided, lasted for 15 mins and resolved without intervention, and similar to his previous episodes of atrial fibrillation but more mild. Chest pressure was accompanied by mild dizziness, nausea, and shortness of breath (more so described as feeling winded). Per EMS, patient fo und to be in NSR upon their arrival and symptoms had resolved. Currently at [facility] for physical therapy/occupational therapy following a left hip fracture with surgical management on 08/30 at [facility]. He was noted to have increasing lower extremity swelling over the last few days, Lasix was increased to 40 mg today. Initial concern swelling was unilateral to his left lower extremity, patient reports he had a venous Doppler ordered for tomorrow to rule out a blood clot. However, swelling more so bilateral today and symmetric. Typically on 20 mg of Lasix on Mondays, Wednesdays, and Fridays due to a history of hyponatremia due to diuresis. He reports the swelling has been ongoing for the past 3 days. Swelling noted to his scrotum/genitalia which caused urinary retention yesterday for which a Cisneros was placed. Cardiology was consulted. Saw pt: advised to take lasix daily instead of Thu., ., Thu, wear compression stockin and elevate legs when able. F/u with cardiology as an outpt. Ok to return to Rehab. Will be discharged with a cisneros which could be taken out at [facility]. Time Spent with Patient Time attestation: Total time spent providing and/or coordinating discharge services: Exam Const: General: comfortable and no acute distress Other: , male, elderly, nontoxic appearance HENMT: Face/Nose/Sinus: Normal nares present Mouth: Yes dry mucous membranes Eyes: General: appearance normal, both eyes and all related structures Sclera: sclerae normal Pupils: Equal, round and reactive pupils present EOM: EOMs intact bilaterally Resp: Effort & Inspection: normal respiratory effort Auscultation: clear to auscultation bilaterally Cardio: Rate: regular rate Rhythm: regular rhythm Other: S1-S2 present without murmur, rub, ectopy GI: GI Palp: Yes Soft to palpation Other: Abdomen soft, nondistended, nontender. Normoactive bowel sounds in all quadrants. : Other: Cisneros in place. Urinary Catheter: Urinary Catheter: patent and draining Skin: General skin exam: normal color and no rashes or lesions noted Wounds: no wounds Neuro: Cranial nerves: Yes Equal, round and reactive pupils present Speech: normal speech Sensory Exam: normal sensation Other: Symmetric strength in all extremities. A&O x4. Extrem: Other: 2+ pitting edema to the bilateral lower extremities extending up to the thighs. Also noted to the scrotum and genitalia. Psych: Mental Status: mental status grossly normal Affect: normal affect Other: Good insight and judgment, very pleasant DS: Data Data Completed and Pending Labs on day of discharge: Labs from last 24 hours 09/11/25 09/10/25 09/10/25 04:10 21:34 18:38 WBC RBC Hgb Hct MCV MCH MCHC RDW Plt Count MPV Immature Gran % (Auto) Neut % (Auto) Lymph % (Auto) Barron % (Auto) Eos % (Auto) Baso % (Auto) Lymph # (Auto) Barron # (Auto) Eos # (Auto) Baso # (Auto) Abs Immat Gran (auto) Absolute Neuts (auto) Absolute Nucleated RBC Nucleated RBC % PT 28.6 H INR 2.8 APTT Sodium Potassium Chloride Carbon Dioxide Anion Gap BUN Creatinine Estim Creat Clear Calc Estimated GFR Glucose Hemoglobin A1c 5.3 Calcium Magnesium Total Bilirubin AST ALT Alkaline Phosphatase Troponin I < 0.012 D 0.024 D NT-Pro-B Natriuret Pep Total Protein Albumin Lipase Urine Color Urine Appearance Urine pH Ur Specific [place] Urine Protein Urine Glucose (UA) Urine Ketones Ur Blood (Man) Urine Nitrate Urine Bilirubin Urine Urobilinogen Leukocyte Esterase Rfl Urine RBC Urine WBC Ur Squamous Epith Cells Urine Bacteria Urine Casts 09/10/25 09/10/25 15:26 14:20 WBC 8.9 RBC 3.53 L Hgb 11.5 L Hct 35.5 L MCV 100.6 H MCH 32.6 MCHC 32.4 RDW 14.3 Plt Count 418 H MPV 8.8 Immature Gran % (Auto) 0.6 H Neut % (Auto) 75.4 H Lymph % (Auto) 13.8 L Barron % (Auto) 7.8 Eos % (Auto) 1.9 Baso % (Auto) 0.5 Lymph # (Auto) 1.22 Barron # (Auto) 0.7 H Eos # (Auto) 0.2 Baso # (Auto) 0.0 Abs Immat Gran (auto) 0.05 H Absolute Neuts (auto) 6.7 Absolute Nucleated RBC 0.000 Nucleated RBC % 0.0 PT 25.7 H INR 2.4 APTT 38.8 H Sodium 136 L Potassium 4.3 Chloride 99 Carbon Dioxide 28 Anion Gap 9 BUN 21 H Creatinine 0.81 Estim Creat Clear Calc 69 Estimated GFR > 60 Glucose 130 H Hemoglobin A1c Calcium 8.4 Magnesium 2.1 Total Bilirubin 0.6 AST 40 ALT 30 Alkaline Phosphatase 141 H Troponin I 0.012 NT-Pro-B Natriuret Pep 907 H Total Protein 6.7 Albumin 3.5 Lipase 40 Urine Color Yellow Urine Appearance Clear Urine pH 5.5 Ur Specific [place] 1.008 Urine Protein Negative Urine Glucose (UA) Negative Urine Ketones Negative Ur Blood (Man) 1+ H Urine Nitrate Negative Urine Bilirubin Negative Urine Urobilinogen 1.0 Leukocyte Esterase Rfl Negative Urine RBC 3-5 H Urine WBC 0-5 Ur Squamous Epith Cells None seen Urine Bacteria None seen Urine Casts 0-2 Discharge Plan Discharge Attending physician on discharge: Victoriano Pires Consulting providers: Christina Kohli Discharging Clinician: Rama Guerin Patient Disposition: [facility] Activity: february shower Diet: heart healthy Discharge Instructions: You were admitted for leg swelling. Cardiology was consulted. Saw pt: advised to take lasix daily instead of Mon., Wedn., Fri, wear compression stockings and elevate legs when able. F/u with cardiology as an outpt. Ok to return to Rehab. Will be discharged with a cisneros which could be taken out at [facility]. Patient Instructions: Warfarin (By mouth), Heart Failure (DC), A-fib (Atrial Fibrillation) (DC) Patient Language: Serbian Follow-up/Referrals: Jolynn Greene APRN [Primary Care Provider, Family Practice] - 2 Weeks Christina Kohli, [facility] [Advanced Practice Nurse, Cardiology] - 2 Weeks Discharge Medications: Continued latanoprost 0.005 % drops 1 drop ophthalmic (eye) HS Rx Instructions: 1 drop into both eyes at bedtime cholecalciferol (vitamin D3) 75 mcg (3,000 unit) tablet 75 mcg PO DAILY albuterol sulfate 90 mcg/actuation HFA aerosol inhaler 1 - 2 inh inhalation Q4H PRN (Reason: shortness of breath or wheezing) Qty: 8.5 11RF ascorbic acid (vitamin C) 1,000 mg Tablet 1 g PO HS amiodarone 200 mg tablet 200 mg PO DAILY B-complex with vitamin C Tablet 1 tablet PO HS warfarin 5 mg tablet 5 mg PO DAILY Rx Instructions: Daily as prescribed by Rn Heart acetaminophen [Mapap (acetaminophen)] 325 mg Tablet 650 mg PO Q6H PRN (Reason: Mild Pain (1-3) Or Fever) Qty: 0 0RF fexofenadine [Kat Allergy] 180 mg tablet 180 mg PO DAILY telmisartan 40 mg tablet 40 mg PO HS dorzolamide-timolol 22.3-6.8 mg/mL drops 1 drp EACH EYE Q12H PreserVision AREDS-2 250-90-40-1 mg capsule 1 tablet PO BID oxycodone-acetaminophen [Percocet] 5-325 mg tablet 1 tablet PO Q4H PRN (Reason: pain) Qty: 1 0RF albuterol sulfate 2.5 mg /3 mL (0.083 %) solution for nebulization 2.5 mg inhalation Q4H PRN (Reason: shortness of breath or wheezing) bisacodyl 5 mg tablet,delayed release (DR/EC) 5 mg PO DAILY Allergy Relief (loratadine) 10 mg capsule 10 mg PO DAILY losartan 25 mg tablet 25 mg PO HS methocarbamol 500 mg tablet 500 mg PO QID DAILY VITAMIN FORMULA-MINERALS Tablet 1 tablet PO BID vitamin B complex Capsule 1 cap PO HS montelukast 10 mg tablet 10 mg PO QHS Qty: 90 3RF primidone 250 mg tablet 250 mg PO TID Qty: 270 3RF buspirone 5 mg tablet 5 mg PO BID atorvastatin 10 mg tablet 10 mg PO QTUTHSASU Rx Instructions: Take Thursday, Thursday, , Thursday fluticasone propionate [Flonase Allergy Relief] 50 mcg/actuation spray,suspension 2 spray intranasal BID PRN (Reason: chronic seasonal allergic rhinitis) Rx Instructions: administer into each nostril 1 or 2 sprays once or twice daily p.r.n. congestion Changed furosemide 20 mg tablet 20 mg PO DAILY Qty: 30 0RF Rx Instructions: 20 mg orally thu; Date of admission: 09/11/25 10:46 Primary Care Provider: Jolynn Greene Admitting Provider: Delmar Eisenberg Attending physician on admission: Delmar Eisenberg Condition: Stable Quality VTE Prophylaxis VTE prophylaxis: pharmacologic ordered Hospitalist MIPS Heart Failure (Exclusion) Patient has history of Heart Transplant or Left Ventricular Assistive Device?: No IF YES, STOP HERE Heart Failure (Qualifier) Patient has current or prior documentation of LVEF less than or equal to 40%, or mod/servere depressed LVSF?: No IF NO, STOP HERE
== END 2025-09-11 16:09 | DRG 291 ==
LOC: ANHED 15:52 → ANHIMU 16:17
PROVIDERS: Emergency Medicine; Student in an Organized Health Care Education/Training Program; Admitting Provider Internal Medicine; Emergency Provider Physician Assistant; PCP Nurse Practitioner Family; Visit Provider Nurse Practitioner
DX: I11.0 Hypertensive heart disease with heart failure (principal); I50.33 Acute on chronic diastolic (congestive) heart failure; E87.1 Hypo-osmolality and hyponatremia; I48.20 Chronic atrial fibrillation, unspecified; R07.9 Chest pain, unspecified; E11.9 Type 2 diabetes mellitus without complications; J45.909 Unspecified asthma, uncomplicated; G25.0 Essential tremor; D64.9 Anemia, unspecified; R33.8 Other retention of urine; H40.9 Unspecified glaucoma; E78.2 Mixed hyperlipidemia; M19.90 Unspecified osteoarthritis, unspecified site; Z98.1 Arthrodesis status; Z96.642 Presence of left artificial hip joint; Z79.01 Long term (current) use of anticoagulants; Z86.16 Personal history of COVID-19
CPT/HCPCS: 36415; 71045; 71046; 80053; 81001; 83036; 83690; 83735; 83880; 84484; 85025; 85610; 85730; 93005; 99285; A9270; G0378; J1938

== ENCOUNTER 2025-09-30 21:59 | Emergency (ER) | payer MEDICARE, SELFPAY ==
[2025-09-30] VITALS (9 sets, daily range): BP systolic 119–153; BP diastolic 79–83; PULSE 78–89; RESP 10–22; TEMP 36.5; O2SAT 97–100
--- NOTE | 2025-09-30 22:33 | ED.MALEGU ---
HPI - Male Genitourinary General Chief complaint: Urogenital-Male Stated complaint: cisneros issues Time Seen by Provider: 09/30/25 22:20 History of Present Illness HPI Narrative: 89-year-old male with history of paroxysmal AFib on warfarin, hypertension, CHF, hypertension. Diabetes. Patient recently admitted to the hospital for inter trochanteric fracture repaired with Orthopedic surgery and discharged to rehab facility. He was having difficulty urinating and a Cisneros catheter was placed. He had difficulties with trial of voids with new catheter was placed by his home healthcare nurse with a smaller size given difficulty in insertion. Patient today feels like he is having sensation that he needs to urinate and some dark discoloration of his urine. He is currently on a fluid restriction diet of 2400 cc per 24 hours and unknown how long he is supposed to be taking that for. He is compliant with it but feels like he could be not drinking enough. Denies any increased thirst. No chest pain, shortness a breath. His leg edema is now resolved and no longer having any fluid retention. He is still nonweightbearing from his procedure. Denies any other issues at this time. Mostly concerned about his sensation of the knee urinate with a catheter in place and concerned that could be urine infection as well. Recently treated with Augmentin for potential infection several weeks ago and no longer having any antibiotics left. Related Data Home Medications ?Medication ?Instructions ?Recorded ?Confirmed ?Last Taken ?Type latanoprost 0.005 % eye drops 1 drop ophthalmic (eye) HS 03/28/20 09/10/25 09/09/25 History B-complex with vitamin C 1 tablet PO HS 05/09/20 09/10/25 09/02/25 History ascorbic acid (vitamin C) 1,000 mg 1 g PO HS 05/09/20 09/10/25 09/09/25 History tablet cholecalciferol (vitamin D3) 75 75 mcg PO DAILY 05/07/21 09/10/25 09/10/25 History mcg (3,000 unit) tablet telmisartan 40 mg tablet 40 mg PO HS 06/08/25 09/10/25 09/02/25 History Held on 09/19/25. Instructions: with until you see PCP fluticasone propionate 50 2 spray intranasal BID PRN 09/03/25 09/10/25 Unknown History mcg/actuation nasal chronic seasonal allergic rhinitis spray,suspension (Flonase Allergy Relief) albuterol sulfate 2.5 mg/3 mL 2.5 mg inhalation Q4H PRN 09/10/25 09/10/25 Unknown History (0.083 %) solution for nebulization shortness of breath or wheezing bisacodyl 5 mg tablet,delayed 5 mg PO DAILY 09/10/25 09/10/25 Unknown History release loratadine 10 mg capsule (Allergy 10 mg PO DAILY 09/10/25 09/10/25 09/10/25 History Relief (loratadine)) losartan 25 mg tablet 25 mg PO HS 09/10/25 09/10/25 09/09/25 History Held on 09/19/25. Instructions: wait until you see a PCP methocarbamol 500 mg tablet 500 mg PO QID 09/10/25 09/10/25 09/09/25 History Held on 09/19/25. Instructions: wait until you see a PCP multivitamin with minerals (DAILY 1 tablet PO BID 09/10/25 09/10/25 09/10/25 History VITAMIN FORMULA-MINERALS tablet) vitamin B complex 1 cap PO HS 09/10/25 09/10/25 09/09/25 History Allergies Allergy/AdvReac Type Severity Reaction Status Date / Time naproxen Allergy Severe SWELLING/SO Verified 09/10/25 17:05 B Review of Systems Review of Systems: As reviewed above in HPI All systems reviewed & are unremarkable except as noted in HPI and below PMFSH Past Medical History Medical History Hyponatremia Pancreatic lesion Glaucoma Seasonal allergies Chronic anticoagulation Chronic diastolic (congestive) heart failure Degenerative disc disease History of hemorrhoids Asthma Anxiety Hypertension Spondylosis of lumbar spine Anemia Pneumonia due to COVID-19 virus Arthritis Hearing loss Chronic atrial fibrillation Essential tremor Mixed hyperlipidemia Type 2 diabetes mellitus without complication, without long-term current use of insulin Surgical History Surgical History History of tonsillectomy History of cataract extraction History of back surgery History of hip surgery History of cardiac catheterization Cervical vertebral fusion Family History Family History Father Cerebrovascular accident Sibling Asthma Mother Brain aneurysm Other Diabetes mellitus Family history of arthritis Hypertension Social History Social History Social History: patient is a nonsmoker and never has smoked. He does not use alcohol or drugs. 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 He would like to be a full code Smoking status: Never smoker Tobacco type: smokeless tobacco Smokeless tobacco user: chewing tobacco Second hand tobacco smoke exposure: No Alcohol intake: never Substance use: never Substance use type: does not use Lack of Transportation: No Lack of Food: Never True Current Housing: I Have Housing Concerned About Future Housing: No Difficulty Paying Gas/Electric Bills: No Difficulty Paying for Meds: No Currently Unemployed: No Education: High School Diploma/GED Difficulty w/ Childcare or Family Care: No Living arrangements: with family Occupation/Education: retired Gender identity (if verbalized by the patient): Male Sexual Orientation (if Verbalized by the Patient): Straight or Heterosexual Spiritual care concerns: No Agree to blood products: Yes Exam Narrative: GENERAL: [Well-appearing, well-nourished, and in no acute distress.] HEAD: [Normocephalic, atraumatic.] EYES: [PERRLA and EOMI.] ENT: Nares clear, no rhinorrhea or epistaxis. Mucous membranes moist. NECK: Supple. CHEST: [Clear to auscultation. No respiratory distress.] HEART: [Regular rate and rhythm]. No murmur heard. [Normal peripheral pulses.] ABDOMEN: [Soft, nondistended], [nontender], [No rigidity or guarding] EXTREMITIES: Normal range of motion. [No edema.] SKIN: Warm, dry, no rash. NEURO: [No focal deficits]. Alert and oriented [x3.] PSYCH: [Normal mood and affect.] Course Vital Signs Vital signs: Vital Signs Temperature 36.5 C 09/30/25 22:00 Pulse Rate 83 09/30/25 22:00 Respiratory Rate 16 09/30/25 22:00 Blood Pressure 153/82 H 09/30/25 22:00 Pulse Oximetry 100 09/30/25 22:00 Oxygen Delivery Room Air 09/30/25 22:00 Temperature 36.5 C 09/30/25 22:00 Pulse Rate 86 09/30/25 22:46 Respiratory Rate 13 09/30/25 22:46 Blood Pressure 119/79 09/30/25 22:46 Pulse Oximetry 99 09/30/25 22:46 Oxygen Delivery Room Air 09/30/25 22:00 MDM MDM Narrative Medical decision making narrative: 89-year-old male with history of paroxysmal AFib on warfarin, hypertension, CHF, hypertension. Diabetes. Patient recently admitted to the hospital for inter trochanteric fracture repaired with Orthopedic surgery and discharged to rehab facility. He was having difficulty urinating and a Cisneros catheter was placed. He had difficulties with trial of voids with new catheter was placed by his home healthcare nurse with a smaller size given difficulty in insertion. Patient today feels like he is having sensation that he needs to urinate and some dark discoloration of his urine. He is currently on a fluid restriction diet of 2400 cc per 24 hours and unknown how long he is supposed to be taking that for. He is compliant with it but feels like he could be not drinking enough. Denies any increased thirst. No chest pain, shortness a breath. His leg edema is now resolved and no longer having any fluid retention. He is still nonweightbearing from his procedure. Denies any other issues at this time. Mostly concerned about his sensation of the knee urinate with a catheter in place and concerned that could be urine infection as well. Recently treated with Augmentin for potential infection several weeks ago and no longer having any antibiotics left. patient has an unremarkable physical examination. Cisneros catheter in place without any signs of irritation or discharge. Urine appears dark but no evidence of clots or hematuria. Drained approximately 300 cc in the last 9 hours. He has no evidence of edema and otherwise reassuring vital signs. Might be over diuresed from his recent Lasix to try and remove fluid off of his legs combined with his fluid restriction. Could also be urinary infection. Bladder scan shows 2-11 cc of fluid in his bladder so most likely under distension causing spasming around the Cisneros bulb causing sensation of urinary issues. Will test urine sample for evidence of elevated specific gravity or hematuria /infection and proceed with results from there. No indications for advanced labs or imaging at this time. Urinalysis shows evidence of infection. Patient started on Bactrim. Previous urine culture shows hyde susceptibility but he has already tried Augmentin without symptoms improving. Has urology follow-up already and given strict return precautions and family verbalized understanding. Ambulance arranged for transfer back home given his nonambulatory status Differential Diagnosis Differential Diagnosis: UTI, under distension, dehydration cystitis Lab Data MDM Lab Attestation statement: I personally reviewed the patient's lab results. Labs: Lab Results 09/30/25 Range/Units 22:45 Urine Color Yellow (Yellow) Urine Appearance Turbid H (Clear) Urine pH 5.5 (5.0-9.0) Ur Specific [place] 1.022 (1.001-1.035) Urine Protein 2+ H (Negative) mg/dL Urine Glucose (UA) Negative (Negative) mg/dL Urine Ketones Trace H (Negative) mg/dL Ur Blood (Man) 3+ H (Negative) Urine Nitrate Positive H (Negative) Urine Bilirubin Negative (Negative) Urine Urobilinogen 1.0 (<2.0) mg/dL Leukocyte Esterase Rfl 3+ H (Negative) DAYANARA/UL Urine RBC >100 H (0-2) /hpf Urine WBC >100 H (0-3) /hpf Urine WBC Clumps Present H (None) /HPF Ur Squamous Epith Cells None seen (Few) /hpf Urine Bacteria 4+ H /hpf Urine Casts 6-10 Hyaline Casts Present (None) /lpf Urine Mucus Present /lpf Discharge Plan Discharge Clinical Impression: Acute UTI Patient Disposition: Home Condition: Stable Instructions: Antibiotic Form, Urinary Tract Infection in Men (ED) Additional Instructions: New evidence of urinary tract infection likely causing symptoms. We have changed her antibiotics to include different formulation to cover for the next 7 days. Call Urology on Thursday for close follow-up. Return with any emergent concerns, difficulty urinating, intractable pain, no urinary output, intractable nausea vomiting or any other issues. Continue your current fluid intake. Patient Language: Kittitian Prescriptions: New sulfamethoxazole-trimethoprim [Bactrim DS] 800-160 mg tablet 1 tablet PO Q12H Qty: 14 0RF No Action latanoprost 0.005 % drops 1 drop ophthalmic (eye) HS Rx Instructions: 1 drop into both eyes at bedtime cholecalciferol (vitamin D3) 75 mcg (3,000 unit) tablet 75 mcg PO DAILY albuterol sulfate 90 mcg/actuation HFA aerosol inhaler 1 - 2 inh inhalation Q4H PRN (Reason: shortness of breath or wheezing) Qty: 8.5 11RF ascorbic acid (vitamin C) 1,000 mg Tablet 1 g PO HS B-complex with vitamin C Tablet 1 tablet PO HS telmisartan 40 mg tablet 40 mg PO HS albuterol sulfate 2.5 mg /3 mL (0.083 %) solution for nebulization 2.5 mg inhalation Q4H PRN (Reason: shortness of breath or wheezing) bisacodyl 5 mg tablet,delayed release (DR/EC) 5 mg PO DAILY Allergy Relief (loratadine) 10 mg capsule 10 mg PO DAILY losartan 25 mg tablet 25 mg PO HS methocarbamol 500 mg tablet 500 mg PO QID DAILY VITAMIN FORMULA-MINERALS Tablet 1 tablet PO BID vitamin B complex Capsule 1 cap PO HS fluticasone propionate [Flonase Allergy Relief] 50 mcg/actuation spray,suspension 2 spray intranasal BID PRN (Reason: chronic seasonal allergic rhinitis) Rx Instructions: administer into each nostril 1 or 2 sprays once or twice daily p.r.n. congestion acetaminophen 325 mg Tablet 650 mg PO Q6H PRN (Reason: Mild Pain (1-3) Or Fever) Qty: 0 0RF amoxicillin-pot clavulanate 875-125 mg tablet 1 tablet PO Q12H Qty: 14 0RF calcium carbonate 500 mg calcium (1,250 mg) Tablet,Chewable 200 mg PO Q6H PRN (Reason: Indigestion) Qty: 0 0RF Home Medication 1 ea EACH EYE 0900,1700 Qty: 0 0RF atorvastatin 10 mg tablet 10 mg PO QTUTHSASU 30 Days Qty: 18 0RF Rx Instructions: Take Thursday, Thursday, , Thursday amiodarone 200 mg tablet 200 mg PO DAILY 30 Days Qty: 30 0RF fexofenadine [Kat Allergy] 180 mg tablet 180 mg PO DAILY 30 Days Qty: 30 0RF primidone 250 mg tablet 250 mg PO TID Qty: 90 0RF montelukast 10 mg tablet 10 mg PO QHS Qty: 30 0RF furosemide 20 mg tablet 20 mg PO DAILY Qty: 30 0RF Rx Instructions: 20 mg orally thu; PreserVision AREDS-2 250-90-40-1 mg capsule 1 tablet PO BID 30 Days Qty: 60 0RF oxycodone-acetaminophen [Percocet] 5-325 mg tablet 1 tablet PO Q8H PRN (Reason: severe pain (scale score 7-10)) Qty: 7 0RF naloxone [Narcan] 4 mg/actuation spray,non-aerosol 1 spray intranasal Q2-3M PRN (Reason: opioid overdose) Qty: 2 0RF Rx Instructions: spray 1 dose into ONE nostril; alternate nostrils w each dose until help arrives warfarin 5 mg tablet 3 mg PO DAILY Qty: 5 0RF Rx Instructions: Daily as prescribed by Sample Book Maker Follow-up/Referrals: Jolynn Greene APRN [Primary Care Provider, [facility]] Time of Disposition: 00:45
[2025-09-30 23:04] LABS: Add Urine Microscopic? YES; Appearance Urine Turbid (Clear); Glucose Urine UA Negative (Negative); Leukocyte Esterase Ur 3+ LEU/UL (Negative); Nitrate Urine Positive (Negative); Specific Grav Ur 1.022 (1.001-1.035)
--- OUTSIDE RECORDS SUMMARY | 2025-09-30 23:06 | XMS_ITS | Encounter Summary ---
Author Organization [facility] Healthcare Address [address] [place] [address] Care Team Providers Care Business And Financial Counsel Name Role Phone Jolynn Greene NP Primary Care Provider [phone] Encounter Details Date Type Department Care Team (Late st Contact Info) Description 09/30/2025 Orders Only [facility] Medical Group Cardiology [address] [place] [id number] Christina Kohli NP [address] [place] [address] [place], [place] [id number] Social History Tobacco Use Types Packs/Day Years Used Date Smoking Tobacco: Never Smokeless Tobacco: Current Chew Alcohol Use Standard Drinks/Week Comments No 0 (1 standard drink = 0.6 oz pur e alcohol) Sex and Gender Information Value Date Recorded Sex Assigned at Not on file Legal Sex Male 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 Gender Identity Not on file Sexual Orientation Not on file documented as of this encounter Plan of Treatment Not on file documented as of this encounter Procedures Procedure Name Priority Date/Time Associated Diagnosis Comments CARDIOLOGY DOCUMENT SCAN Routine 025 11:38 AM METALLURGICAL OR MATERIALS TECHNICIAN documented in this encounter Results * Cardiology Document Scan (09/11/2025 11:38 AM METALLURGICAL OR MATERIALS TECHNICIAN) Anatomical Region Laterality Modality Other Christina Kohli NP CV CARDIAC SERVICES PROCEDUR ES Final Result documented in this encounter Visit Diagnoses Not on filedocumented in this encounter Care Teams Business And Financial Counsel Relationship Specialty Start Date End Date Jolynn Greene NP [address] [address] PCP - General Family Medicine 06/22/25 documented as of this encounter
--- OUTSIDE RECORDS SUMMARY | 2025-09-30 23:08 | XMS_ITS | Encounter Summary ---
Author Organization [facility] Healthcare Address [address] [place] [address] Care Team Providers Care Operator Control Room Name Role Phone Alexander Fraire MD Primary Care Provider [phone] Santos Alanis MD, Hector Nam Primary Care Provider Willian Elise MD Primary Care Provider [phone] Jolynn Greene NP Primary Care Provider [phone] Encounter Details Date Type Department Care Team (Late st Contact Info) Description 12/18/2017 Orders Only [facility] [place] [place] Health Information Management [address] [place] [address] Scanning, Provider Social History Tobacco Use Types Packs/Day Years Used Date Smoking Tobacco: Never Smokeless Tobacco: Former Alcohol Use Standard Drinks/Week Comments No 0 (1 standard drink = 0.6 oz pur e alcohol) Sex and Gender Information Value Date Recorded Sex Assigned at Not on file 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 Gender Identity Not on file Sexual Orientation [...] on filedocumented in this encounter Care Teams Operator Control Room Relationship Specialty Start Date End Date Alexander Fraire MD PCP - General 01/16/17 06/16/18 Hector Graham Jr., MD [address] [place] [address] PCP - General Geriatric Medicine 06/17/18 05/27/21 Willian Elise MD [address] [facility] [address] [place] [address] PCP - General Family Medicine 05/28/21 06/21/25 Jolynn Greene NP [address] [facility] [address] [place] [address] PCP - General Family Medicine 06/22/25 documented as of this encounter
--- OUTSIDE RECORDS SUMMARY | 2025-09-30 23:08 | XMS_ITS | Clinical Summary ---
Author Organization [facility] [address] Address [address] [place] [address] Care Team Providers Care Groover Runner Name Role Phone Jolynn Greene NP Primary Care Provider [phone] Allergies Active Allergy Reactions Criticality Noted Date [...] Additional Information Patient not taking.Reported on 06/22/2025 busPIRone (BUSPAR) 5 mg tablet Take 1 tablet (5 mg total) by mouth daily Increase to 1 tablet twice a day after day 3 06/20/20 25 Active furosemide (LASIX) 20 mg tabletIndicatio ns:Edema, lower extremity Take 1 tablet (20 mg total) by mouth 3 (three) times a week 36 tablet 1 09/20/20 25 Active warfarin (COUMADIN) 3 mg tablet Take 1 tablet (3 mg total) by mouth daily Or as instructed. 30 tablet 09/21/20 25 Active amiodarone (PACERONE) 200 mg tablet TAKE 1 TABLET BY MOUTH EVERY DAY 90 tablet 1 09/29/20 25 Active warfarin (COUMADIN) 5 mg tablet TAKE ONE TAB 5 DAYS A WEEK (SUN, THU, WED, FRI, SAT) & 1.5 TABS (7.5 MG) ON , TH OR DIRECT 135 tablet 09/29/20 25 Active amiodarone (PACERONE) 200 mg tablet TAKE 1 TABLET BY MOUTH EVERY DAY 90 tablet 2 04/11/20 25 025 Discontinued furosemide (LASIX) 20 mg tabletIndicatio ns:Edema, lower extremity Take 1 tablet (20 mg total) by mouth 3 (three) times a week Mon, Wed, Fri 06/23/20 25 025 Discontinued warfarin (COUMADIN) 5 mg tablet TAKE ONE TAB (5 MG) 5 DAYS A WEEK (SUN, MON, WED, FRI, SAT) & 1&1/2 TABS (7.5 MG) ON TUES, THURS OR DIRA 135 tablet 08/14/20 25 025 Discontinued Active Problems Problem Noted Date Diagnosed Date Atrial fibrillation (CMS/HCC) [I48.91] 7 Paroxysmal atrial fibrillation 05/07/2017 Encounters Date Type Department Care Team Description 09/30/2025 Orders Only [facility] [address] [place] [address] [address] [place] [address] Christina Kohli NP 09/28/2025 Anticoagulation Visit [facility] [address] [place] [address] [address] [place] [address] Itzel Fofana RN Atrial fibrillation ([facility]/HCC) [I48.91] (Primary Dx); Paroxysmal atrial fibrillation (HCC) 09/21/2025 Telephone [facility] [address] [place] [address] [place] [phone] Jaiden Pisano MD INR results 09/21/2025 Anticoagulation Visit [facility] at [address] [place] [address] Itzel Fofana RN Atrial fibrillation ([facility]) [I48.91] (Primary Dx); Paroxysmal atrial fibrillation (HCC) 09/20/2025 Orders Only [facility] Health Information Management [address] [place] [address] Scanning, Provider 08/21/2025 Anticoagulation Visit [place] [address] [address] [place] [address] Ya Rocha RN Atrial fibrillation ([facility]/HCC) [I48.91] (Primary Dx); Paroxysmal atrial fibrillation (HCC) 08/18/2025 Orders Only [facility] [address] [place] [address] [address] [place] [address] Jaiden Pisano MD 08/04/2025 Anticoagulation Visit [facility] [address] [place] [address] [place] [phone] Catrachita Sheikh RN Atrial fibrillation ([facility]/HCC) [I48.91] (Primary Dx); Paroxysmal atrial fibrillation (HCC) 08/03/2025 Orders Only [facility] [address] [place] [phone] Jaiden Pisano MD 07/20/2025 Anticoagulation Visit [facility] [address] [place] [address] [address] [place] [phone] Ya Rocha RN Atrial fibrillation (CMS/HCC) [I48.91] (Primary Dx); Paroxysmal atrial fibrillation (HCC) 07/20/2025 Orders Only [facility] [address] [place] [address] [address] [place] [phone] Jaiden Pisano MD 07/20/2025 Telephone [facility] [address] [place] [address] [address] [place] [phone] Jaiden Pisano MD INR order from Last 3 Months Medical History Medical [...] on file 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 Gender Identity Not on file Sexual [...] Priority Date/Time Associated Diagnosis Comments PROTIME-INR Routine 09/27/2025 SCAN - LABS 09/20/2025 PROTIME-INR Routine 09/20/2025 CARDIOLOGY DOCUMENT SCAN Routine 09/11/2025 11:38 AM CLINICAL INFORMATICS MANAGER PROTIME-INR Routine 08/18/2025 12:37 PM CDT PROTIME-INR Routine 08/03/2025 9:02 AM CDT PROTIME-INR Routine 07/20/2025 9:41 AM CDT from Last 3 Months Results * (ABNORMAL) Protime-INR (09/27/2025) INR 1.50(A) 0.90 - 1.10 [facility] Blood Historical Provider MD LAB BLOOD ORDERABLES Mitzi l Result [facility] * SCAN - LABS (09/20/2025) us Provider Scanning Final Result * (ABNORMAL) Protime-INR (09/20/2025) INR 1.80(A) 0.90 - 1.10 EXTERNAL LAB Blood Historical Provider MD LAB BLOOD ORDERABLES Mitzi l Result EXTERNAL LAB * Cardiology Document Scan (09/11/2025 11:38 AM CLINICAL INFORMATICS MANAGER) Anatomical Region Laterality Modality Other Christina Kohli NP CV CARDIAC SERVICES PROCEDUR ES Final Result * (ABNORMAL) Protime-INR (08/18/2025 12:37 PM CDT) INR 1.8(H) [facility] Comment: Reference Range 0.9-1.1 Moderate-intensity Warfarin Therapy 2.0-3.0 Higher-intensity Warfarin Therapy 3.0-4.0 PT 18.5(H) 9.0 - 11.5 sec [facility] Comment: For additional information, please refer to http://[employer].EverythingMe/faq/OYR277 (This link is being provided for informational/ educational purposes only.) 08/18/2025 12:3 7 PM CDT 08/18/2025 12:37 PM CDT Jaiden Pisano MD LAB BLOOD ORDERABLES Fin al Result [facility] [address] [place] [address] * (ABNORMAL) Protime-INR (08/03/2025 9:02 AM CDT) INR 1.7(H) [facility] Comment: Reference Range 0.9-1.1 Moderate-intensity Warfarin Therapy 2.0-3.0 Higher-intensity Warfarin Therapy 3.0-4.0 PT 17.7(H) 9.0 - 11.5 sec [facility] Comment: For additional information, please refer to http://[employer].EverythingMe/faq/AFL628 (This link is being provided for informational/ educational purposes only.) 08/03/2025 9:02 AM CDT 08/03/2025 9:02 AM CDT us Jaiden Pisano MD LAB BLOOD ORDERABLES Fin al Result Performing Organization Address [facility] Co de Phone Number [facility] [address] [place] [address] * (ABNORMAL) Protime-INR (07/20/2025 9:41 AM CDT) INR 1.6(H) [facility] Comment: Reference Range 0.9-1.1 Moderate-intensity Warfarin Therapy 2.0-3.0 Higher-intensity Warfarin Therapy 3.0-4.0 PT 16.1(H) 9.0 - 11.5 sec [facility] Comment: For additional information, please refer to http://[employer].EverythingMe/faq/EZC334 (This link is being provided for informational/ educational purposes only.) 07/20/2025 9:41 AM CDT 07/20/2025 9:41 AM CDT Jaiden Pisano MD LAB BLOOD ORDERABLES Fin al Result Performing Organization Address [facility] Co de Phone Number [facility] [address] [place] [address] from Last 3 Months Insurance [facility] MEDICARE SUPPLEMENT Care Teams Groover Runner Relationship Specialty Start Date End Date Jolynn Greene NP [address] [address] PCP - General Family Medicine 06/22/25
--- OUTSIDE RECORDS SUMMARY | 2025-09-30 23:08 | XMS_ITS | Encounter Summary ---
Author Organization [facility] Address [address] [place] [address] Phone Care Team Providers Care Construction Mgr Name Role Phone Santos Alanis MD, Hector Nam Primary Care Provider Willian Elise MD Primary Care Provider [phone] Jolynn Greene NP Primary Care Provider [phone] Encounter Details Date Type Department Care Team (Late st Contact Info) Description 08/23/2018 Telephone [facility] Cardiology [address] [facility] Advanced [facility] [address]th [place] [address] [place] [address] Rachelle Ludwig, MPH Social History Tobacco Use Types Packs/Day Years Used Date Smoking Tobacco: Never Smokeless Tobacco: Former Alcohol Use Standard Drinks/Week Comments No 0 (1 standard drink = 0.6 oz pur e alcohol) Sex and Gender Information Value Date Recorded Sex Assigned at Not on file 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 Gender Identity Not on file Sexual Orientation Not on file documented as of this encounter Plan of Treatment Not on file documented as of this encounter Visit Diagnoses Not on filedocumented in this encounter Care Teams Construction Mgr Relationship Specialty Start Date End Date Hector Graham Jr., MD [address] [place] [phone] PCP - General Geriatric Medicine 06/17/18 05/27/21 Willian Elise MD [address] [facility] [address] [place] [address] PCP - General Family Medicine 05/28/21 06/21/25 Jolynn Greene NP [address] [facility] [address] [place] [address] PCP - General Family Medicine 06/22/25 documented as of this encounter
--- OUTSIDE RECORDS SUMMARY | 2025-09-30 23:08 | XMS_ITS | Encounter Summary ---
Author Organization [facility] Healthcare Address [address] [place] [address] Care Team Providers Care Games Manager Name Role Phone Willian Elise MD Primary Care Provider [phone] Jolynn Greene NP Primary Care Provider [phone] Encounter Details Date Type Department Care Team (Late st Contact Info) Description 06/15/2025 Orders Only [facility] Health Information Management [address] [place] [address] Scanning, Provider Social History Tobacco Use Types Packs/Day Years Used Date Smoking Tobacco: Never Smokeless Tobacco: Current Chew Alcohol Use Standard Drinks/Week Comments No 0 (1 standard drink = 0.6 oz pur e alcohol) Sex and Gender Information Value Date Recorded Sex Assigned at Not on file 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
--- OUTSIDE RECORDS SUMMARY | 2025-09-30 23:08 | XMS_ITS | Clinical Summary ---
Author Organization [facility] Address [address] [place] [address] Care Team Providers Care Small Craft Operator Name Role Phone Hector Graham MD [...] Counseling Given: Yes Comments:1/2 pouch/day PCP to child welfare counselor Alcohol Use Standard Drinks/Week Comments Not [...] age to complete this topic Insurance MEDICARE [facility] Care Teams Small Craft Operator Relationship Specialty Start Date End Date Hector Graham MD PCP - General INTERNAL MEDICINE 05/16/19
[2025-09-30] MEDS: SULFAMETHOXAZOLE/TRIMETHOPRIM 800/160 MG DS TABLET 1 TAB PO (23:35)
== END 2025-10-01 03:38 | disposition home or self-care (01) ==
PROVIDERS: Emergency Provider Student in an Organized Health Care Education/Training Program; PCP Nurse Practitioner Family
DX: N39.0 Urinary tract infection, site not specified (principal); I48.0 Paroxysmal atrial fibrillation; I11.0 Hypertensive heart disease with heart failure; I50.9 Heart failure, unspecified; E11.9 Type 2 diabetes mellitus without complications; E78.2 Mixed hyperlipidemia; Z79.01 Long term (current) use of anticoagulants
CPT/HCPCS: 51702; 81001; 87086; 87186; 99283; A9270